=== PATIENT | female | born 1955 | race Caucasian/White ===

== ENCOUNTER 2020-08-21 22:41 | Outpatient (REF) | payer MEDICAID, SELFPAY ==
[2020-08-22 20:05] LABS: Influenza A RNA Result Negative (Negative); Influenza B RNA Result Negative (Negative); RSV RNA Result Negative (Negative)
[2020-08-25 12:22] LABS: COVID-19 RT-PCR Result NEGATIVE (Negative)
== END 2020-08-21 23:01 ==
LOC: LBN 22:41
PROVIDERS: PCP Family Medicine; Visit Provider Student in an Organized Health Care Education/Training Program
DX: M79.18 Myalgia, other site (principal); B34.9 Viral infection, unspecified
CPT/HCPCS: 87631; U0003

== ENCOUNTER 2021-01-28 03:13 | Outpatient (CLI) | payer MEDICAID, SELFPAY ==
[2021-01-28 12:53] LABS: Bilirubin Negative (Negative); Blood Negative (Negative); Clarity Sl Cloudy (Clear); Glucose Negative (Negative); Ketones Negative (Negative); Leukocyte Esterase Small (Negative); Nitrite Negative (Negative); Urobilinogen 0.2 EU/dL (Up TO 0.2); pH 6.5 (5-8)
[2021-01-28 13:00] LABS: Bacteria Few HPF (Negative); Crystals Negative HPF (Negative); Epithelial Cells Few HPF (Negative); Mucus Moderate (Negative); RBC 0-2 HPF (0-2)
[2021-01-28 13:01] LABS: C & S Indicated? Yes; Casts 3-5 Hyaline LPF (Negative)
[2021-01-28 13:21] LABS: Hemoglobin A1C 5.5 % (<5.7)
[2021-01-28 13:28] LABS: ALT 20 U/L (14-59); AST 11 U/L (15-37); Albumin 4.5 g/dL (3.4-5.0); Alkaline Phosphatase 85 U/L (46-116); BUN 10 mg/dL (7-18); Bilirubin, Total 0.5 mg/dL (0.2-1.0); CREATININE 1.3 mg/dL (0.55-1.02); Calcium 9.3 mg/dL (8.5-10.1); Calculated LDL 192 mg/dL (<100); Chloride 101 mmol/L (98-107); Cholesterol 280 mg/dL (<200); Estimated GFR 41.24 (mL/min/1.73m2); Glucose 111 mg/dL (74-106); HDL Cholesterol 38 mg/dL (40-60); Magnesium 1.9 mg/dL (1.8-2.4); Potassium 4.4 mmol/L (3.5-5.1); Sodium 141 mmol/L (136-145); Triglyceride 254 mg/dL (<150)
== END 2021-01-28 03:14 | disposition home or self-care (01) ==
LOC: LOS 03:14
PROVIDERS: Nurse Practitioner Psychiatric/Mental Health; PCP Family Medicine; Visit Provider Family Medicine
DX: E78.5 Hyperlipidemia, unspecified (principal); E83.42 Hypomagnesemia; N20.0 Calculus of kidney; R82.998 Other abnormal findings in urine; Z13.1 Encounter for screening for diabetes mellitus
CPT/HCPCS: 36415; 80053; 80061; 81003; 81015; 83036; 83735; 87086

== ENCOUNTER 2021-04-28 04:58 | Outpatient (CLI) | payer MEDICAID, SELFPAY ==
[2021-04-28 14:32] LABS: ALT 20 U/L (14-59); AST 15 U/L (15-37); Albumin 4.3 g/dL (3.4-5.0); Alkaline Phosphatase 66 U/L (46-116); Anion Gap 11.7 mmol/L (3-11); BUN 9 mg/dL (7-18); Bilirubin, Total 0.2 mg/dL (0.2-1.0); CO2 25.3 mmol/L (21.0-32.0); CREATININE 1.1 mg/dL (0.55-1.02); Calculated LDL 115 mg/dL (<100); Chloride 102 mmol/L (98-107); Cholesterol 217 mg/dL (<200); Estimated GFR 50.01 (mL/min/1.73m2); Glucose 100 mg/dL (74-106); HDL Cholesterol 44 mg/dL (40-60); Potassium 3.9 mmol/L (3.5-5.1); Sodium 139 mmol/L (136-145); Total Protein 7.8 g/dL (6.4-8.2); Triglyceride 292 mg/dL (<150)
[2021-04-28 15:06] LABS: Hemoglobin A1C 5.9 % (<5.7)
== END 2021-04-28 04:59 | disposition home or self-care (01) ==
LOC: LBO 04:58
PROVIDERS: Psychiatry & Neurology Psychiatry; PCP Family Medicine; Visit Provider Family Medicine
DX: F31.81 Bipolar II disorder (principal); Z79.899 Other long term (current) drug therapy
CPT/HCPCS: 36415; 80053; 80061; 83036

== ENCOUNTER 2021-06-17 03:07 | Outpatient (CLI) | payer OTHER, SELFPAY ==
--- NOTE | 2021-06-17 | DI.RAD_ITS ---
Exam(s) XR LUMBAR SPINE AP, LAT EXAM: XR LUMBAR SPINE AP, LAT CLINICAL HISTORY: DISABILITY DETERMINATION, BACK PAIN. TECHNIQUE: 2D digital imaging was performed. COMPARISON: No exams were available for comparison FINDINGS: There is no evidence compression fracture. Mild scoliosis convex right. There is some mild disc spa ce narrowing at L4-5 level and 7 millimeters anterolisthesis L4 upon L5 due to facet joint arthropath y. Mild narrowing of the other disc spaces also evident. Mild facet arthropathy. Sacroiliac joints appear unremarkable. IMPRESSION: Degenerative disc disease. Degenerative anterolisthesis of L4 upon L5. DATA REPOSITORY: RADIATION DOSE DELIVERED:
== END 2021-06-17 03:27 ==
PROVIDERS: PCP Family Medicine; Visit Provider Pediatrics Pediatric Rheumatology
DX: Z02.71 Encounter for disability determination (principal); M54.9 Dorsalgia, unspecified; F31.9 Bipolar disorder, unspecified; M51.36 Other intervertebral disc degeneration, lumbar region; M43.16 Spondylolisthesis, lumbar region
CPT/HCPCS: 72100

== ENCOUNTER 2022-02-10 11:41 | Inpatient (IN) | payer MEDICARE, MEDICAID, SELFPAY ==
[2022-02-10 11:45] VITALS: BP 157/84; PULSE 93; RESP 16; TEMP 37.2; O2SAT 96
--- NOTE | 2022-02-10 12:32 | ED.GENADUL_ITS ---
Discharge Plan Disposition Patient Disposition: [facility] INPATIENT Condition: Stable Discharge Details Clinical Impression: Diverticulitis large intestine Primary Care Provider: Cathie Strange ED Provider: Medina Wang Home Meds and New Rx's Prescriptions: No Action Latuda 120 mg tablet 120 mg PO DAILY Label Comments: pt reports taking 160 mg daily. -hb trazodone 50 mg tablet 50 mg PO HS Label Comments: pt reports taking 200 mg HS. -hb Vitamin D3 (calcium cit-phos) 1 EACH tablet 1 ea PO DAILY Slow-Mag 71.5 MG tablet,delayed release (DR/EC) 2 tab PO DAILY Qty: 60 sertraline [Zoloft] 100 MG tablet 200 mg PO DAILY bupropion HCl [Wellbutrin XL] 150 MG tablet extended release 24 hr 150 mg PO DAILY Qty: 30 Rx Instructions: Elis Barnes NP lansoprazole 30 mg capsule,delayed release(DR/EC) 30 mg PO DAILY Qty: 90 3RF cetirizine 10 mg tablet 10 mg PO DAILY Qty: 90 3RF atorvastatin 20 mg tablet 20 mg PO DAILY Qty: 90 3RF Rx Instructions: take one tablet daily okwthaywxo-xgchjjrbsafah-awsk 50-300-40 mg capsule 1 cap PO DAILY PRN (Reason: headache) Qty: 4 0RF lorazepam 1 MG tablet 1 tab PO TID Label Comments: Now TID 04/21/16 [employer] haloperidol 2 MG tablet 2 mg PO HS Excedrin Tension Headache 1 EACH tablet 1 - 2 tab PO PRN PRN lamotrigine [Lamictal] 100 mg tablet 150 mg PO DAILY Label Comments: 11/11/17 takes 150 mg daily. hb prazosin 1 mg capsule 1 mg PO BID Medical Decision Making 67 year-old female presents to the ER with chief complaints of suprapubic abdominal pain which radiates into her vaginal area which has been worsening for the last 2 weeks. She reports abdominal pain for the last 2 months around her bellybutton and right upper quadrant. She also reports diarrhea loose stools for the last couple of weeks. Nausea no vomiting denies any fever chills. She denies any dysuria. She denies any blood or mucus in her stools. She also endorses bloating and fullness in her abdomen. She did take 4 Excedrin this morning at 9 AM. Past medical history include Cramer's esophagus, neoplasm of kidney, bipolar 1, diabetes mellitus, hypertension, bulimia, hypothyroidism, glaucoma surgical history includes hysterectomy, cholecystectomy per patient report. Work-up ordered including CBC, CMP, urinalysis, lipase CT abdomen pelvis without contrast. This patient was evaluated during a time of global shortage of iodinated contrast media. Based on guidance from the [employer], best practices, and local institutional approaches as an alternative path for evaluating and managing the patient may have been implemented in order to provide optimal care during shortage. The current situation has been discussed with the patient. CBC shows white blood cell count 11.23, absolute neutrophils 8.18 BUN 6 creatinine 1.0 GFR 55, glucose 118 urinalysis shows moderate leukocytes 3-5 RBCs 20-50 WBCs. Culture is not indicated at this time due to squamous contamination. 1335: Spoke with Dr. Hale radiologist regarding CT result. He reports acute diverticulitis. Significant risk for developing an abscess please see his official report. Flagyl 500 mg PO ordered, I did consider Augmentin however patient is allergic to penicillin, Cipro (dizziness), sulfa, codeine and latex. 1338: Surgery paged for consult to discuss case. 1432: Spoke with Dr. Rivera regarding patient case in detail she was able to personally view the CT. She does recommend admission to minimize the risk of abscess. I did discuss this with the patient who verbalizes understanding and is in agreement with admission. This text was generated using [employer] dictation system, please disregard any oddities of phrase or misspellings. 1520: Per RN report, patient does not want morphine is requesting hydrocodone which was ordered at this time. HPI General Mode of arrival: ambulatory . Date/Time Provider Initiated Documentation: 02/10/22 12:10 . Limitations to Documentation: no limitations . Information obtained by: patient, RN notes reviewed and old records reviewed . HPI Narrative: 67-year-old female presents to the ER with chief complaints of suprapubic abdominal pain which radiates into her vaginal area which has been worsening for the last 2 weeks. She reports abdominal pain for the last 2 months around her bellybutton and right upper quadrant. She also reports diarrhea loose stools for the last couple of weeks. Nausea no vomiting denies any fever chills. She denies any dysuria. She denies any blood or mucus in her stools. She also endorses bloating and fullness in her abdomen. She did take 4 Excedrin this morning at 9 AM. Past medical history include Cramer's esophagus, neoplasm of kidney, bipolar 1, diabetes mellitus, hypertension, bulimia, hypothyroidism, glaucoma surgical history includes hysterectomy, cholecystectomy per patient report. Related Data Home Medications Medication Instructions Recorded Confirmed calcium cmb no.1-vit Y4-D2-LD-B12 1 ea PO DAILY 01/22/13 05/02/21 120 mg-1,000 unit-10 mg tablet (Vitamin D3 (with calcium cit-phos)) lorazepam 1 mg tablet 1 tab PO TID 04/06/14 02/10/22 magnesium chloride 71.5 mg 2 tab PO DAILY #60 tab-caps 04/11/14 02/10/22 (magnesium chloride) tablet,delayed release (Slow-Mag) sertraline 100 mg tablet (Zoloft) 200 mg PO DAILY 09/03/14 02/10/22 acetaminophen-caffeine 500 mg-65 1 - 2 tab PO PRN PRN 04/29/15 05/02/21 mg tablet (Excedrin Tension Headache) haloperidol 2 mg tablet 2 mg PO HS 04/29/15 05/02/21 bupropion HCl 150 mg 24 hr tablet, 150 mg PO DAILY #30 tab-caps 04/21/16 02/10/22 extended release (Wellbutrin XL) lamotrigine 100 mg tablet 150 mg PO DAILY 06/18/19 02/10/22 (Lamictal) prazosin 1 mg capsule 1 mg PO BID 06/18/19 02/10/22 lurasidone 120 mg tablet (Latuda) 120 mg PO DAILY 04/30/21 05/02/21 trazodone 50 mg tablet 50 mg PO HS 04/30/21 02/10/22 lansoprazole 30 mg capsule,delayed 30 mg PO DAILY Cramer's 12/11/21 02/10/22 release oesophagus/GERD #90 caps cetirizine 10 mg tablet 10 mg PO DAILY #90 tabs 01/01/22 atorvastatin 20 mg tablet 20 mg PO DAILY #90 tabs 01/06/22 02/10/22 xonggoavju-cjnkinihvjswe-obwpdqxh 1 cap PO DAILY PRN headache #4 caps 02/05/22 50 mg-300 mg-40 mg capsule Previous Rx's Medication Instructions Recorded lansoprazole 30 mg capsule,delayed 30 mg PO DAILY Cramer's 12/11/21 release oesophagus/GERD #90 caps cetirizine 10 mg tablet 10 mg PO DAILY #90 tabs 01/01/22 atorvastatin 20 mg tablet 20 mg PO DAILY #90 tabs 01/06/22 dhxsuieyja-uzhrihzvicoxu-bosdlddr 1 cap PO DAILY PRN headache #4 caps 02/05/22 50 mg-300 mg-40 mg capsule Allergies Allergy/AdvReac Type Severity Reaction Status Date / Time Penicillins Allergy Swelling/Ed Verified 02/10/22 11:50 dilia latex AdvReac Severe Skin Rash Verified 02/10/22 11:50 azithromycin [From Zithromax] AdvReac headache, Verified 02/10/22 11:50 hearing loss,double vision, DAVILA ciprofloxacin [From Cipro] AdvReac Dizziness/L Verified 02/10/22 11:50 ightheade codeine AdvReac GI upset Verified 02/10/22 11:50 Sulfa (Sulfonamide AdvReac anxious Verified 02/10/22 11:50 Antibiotics) General Stated Complaint: Abd Prob MARIAM: 3 Review of Systems All systems reviewed & are unremarkable except as noted in HPI and below Cardiovascular Cardiovascular: Denies chest pain and Denies dyspnea Respiratory Respiratory: Denies dyspnea Gastrointestinal Gastrointestinal: Reports as per HPI, Reports abdominal pain, Reports bloating, Denies hematochezia, Reports diarrhea, Denies vomiting and Denies hematemesis Genitourinary Genitourinary: Denies dysuria PFSH All Active Problems (Updated 02/10/22 @ 14:17 by Medina Wang) Diverticulitis large intestine (Acute) Tooth ache (Acute) Viral syndrome (Acute) Allergic rhinitis (Acute 05/05/15) Bipolar I disorder (Acute) Essential hypertension (Acute 06/28/13) no rx (2014) Gastroesophageal reflux disease with esophagitis (Acute) gastroscopy February 2013: oesophagitis () no response to Ranitidine, Pantoprazole/ on Nexium x age 31 Hyperlipidemia (Acute 03/27/13) Kidney stone (Acute) lithotripsy 2009 (right) Medical History (Updated 02/10/22 @ 14:17 by Medina Wang) Cramre's esophagus Benign neoplasm of kidney Bipolar I disorder Diabetes mellitus Essential hypertension Glaucoma Hyperlipidemia Hypothyroidism Postmenopausal bleeding uterine fibroids Surgical History (Updated 06/21/18 @ 14:35 by kalidea NM) Ligation of fallopian tube Vaginal hysterectomy (07/03/15) UTEROSACRAL SUSPENSION; CYSTOSCOPY, RECTOCELE REPAIR Family History Mother Essential hypertension Personal history of malignant neoplasm LUNG Stroke Father Essential hypertension Heart disease Hyperlipidemia Sister No problems noted. Sister No problems noted. Brother Heart disease DOUBLE BYPASS AGE 48 (NON SMOKER) Hyperlipidemia Grandfather Personal history of malignant neoplasm LUNG Grandfather No problems noted. Grandmother Heart disease Myocardial infarction Grandmother Diabetes Son No problems noted. Son Depression Daughter Depression Social History Smoking/Tobacco Use Status: Former Tobacco Use Smoking risk assessment performed?: Yes Alcohol Intake: never Drug use: Never Substance use type: does not use Do you feel safe at home: Yes Do you feel safe in your relationship?: Yes Exam Narrative Exam Narrative: Constitutional: Alert and oriented x3. Appears stated age. Normal body habitus. Head: Normocephalic, no trauma. Eyes: Pupils PERRL, Red reflex noted, EOM's intact. Eyelids symmetrical without lesions, discharge, or swelling. Chest: RRR, Normal S1, S2, distal pulses intact. Resp: Lungs clear to auscultation bilaterally, no wheezes, rales, or rhonchi. Abdomen: Soft, does appear somewhat bloated, tenderness to the right lower quadrant left lower quadrant suprapubic area. Musculoskeletal: Normal gait, 5/5 strength to all four extremities. Skin: No suspicious rashes or lesions. Capillary refill less than 2 sec. Neurologic: Cranial nerves II-XII intact. Alert and oriented x 3. Motor: No deficits noted. Sensory: Intact bilaterally all 4 extremities. Hematologic/Lymphatic: No ecchymosis, no lymphadenopathy. Course Vital Signs Vital signs: Vital Signs Temperature 37.2 C 02/10/22 11:45 Pulse 93 H 02/10/22 11:45 Respiratory Rate 16 02/10/22 11:45 Blood Pressure 157/84 H 02/10/22 11:45 Pulse Oximetry 96 02/10/22 11:45 Temperature 37.2 C 02/10/22 11:45 Pulse 93 H 02/10/22 11:45 Respiratory Rate 16 02/10/22 11:45 Respiratory Effort 02/10/22 11:54 Blood Pressure 157/84 H 02/10/22 11:45 Pulse Oximetry 96 02/10/22 11:45 Pain Level 4 02/10/22 11:45
[2022-02-10 12:50] LABS: Abs Immature Grans 0.07 10^3/uL (0.0-0.06); Absolute Basophil Count 0.08 10^3/uL (0.0-0.2); Absolute Eosinophil Count 0.29 10^3/uL (0.0-0.7); Absolute Lymphocyte Count 1.94 10^3/uL (1.2-3.4); Absolute Monocyte Count 0.67 10^3/uL (0.1-0.8); Absolute Neutrophil Count 8.18 10^3/uL (1.2-6.7); Basophils % 0.7; Eosinophils % 2.6; HCT 43.8 % (36.0-46.0); HGB 14.7 g/dL (11.2-15.7); Immature Grans % 0.6; Lymphocytes % 17.3; MCH 32.3 pg (27.0-33.0); MCHC 33.6 % (32.0-36.0); MCV 96 fL (80-95); MPV 9.4 fL (8.0-11.0); Neutrophils % 72.8; Platelet Count 208 10^3/uL (130-400); RBC 4.55 10^6/uL (3.93-5.22); RDW-SD 46.2 fL; WBC 11.23 10^3/uL (4.4-10.8)
--- NOTE | 2022-02-10 12:54 | DI.CT_ITS ---
Exam(s) CT ABDOMEN PELVIS WO EXAM: CT ABDOMEN PELVIS WO CLINICAL HISTORY: Suprapubic abd pain, RUQ pain, bloating. TECHNIQUE: Imaging Protocol: Axial computed tomography images with coronal and sagittal reformatted images were created and reviewed CONTRAST MATERIAL: Intravenous: none Oral: None COMPARISON: CT UPPER ABD W/WO CONTRAST(P) from 05/04/2012 FINDINGS: VISUALIZED LUNG BASES: There are mild increased markings in the right lung base but no confluent infi ltrate and there are no pleural effusions.. ABDOMEN: There is no ascites. LIVER: There are no obvious focal hepatic lesions evident of this noninfused study. GALLBLADDER/BILIARY: Gallbladder surgically absent. CBD is not dilated. Scratch PANCREAS: No evidence of pancreatic mass nor dilatation of the pancreatic duct. SPLEEN: Spleen is not enlarged. No obvious intrasplenic lesions. ADRENALS: There are no significant adrenal masses. KIDNEYS:No cysts evident. There is a relatively stable containing lesion in the lateral cortex of the left kidney which measures 2 x 2 cm, consistent with an angiomyolipoma. This is only minimally incr eased in size when compared to 2012. No new solid renal masses. No calculi. No hydronephrosis.. ABDOMINAL AORTA: Abdominal aorta is not enlarged. LYMPH NODES: There is no retroperitoneal nor paraaortic adenopathy. ABDOMINAL WALL: No evidence of significant anterior abdominal wall nor inguinal hernia. GI: There is no evidence of bowel obstruction, free air, nor abscess. PELVIS: LYMPH NODES: There is no intrapelvic nor inguinal adenopathy. GI: No evidence of appendicitis.Sigmoid diverticulosis and there is evidence of acute diverticulitis. There is streaking and some phlegmonous change around the rectosigmoid. High risk for developing a bscess. URINARY BLADDER: No mass nor calculi nor gas therein. REPRODUCTIVE: Uterus is surgically absent. No ovarian masses. OSSEOUS: No significant osseous lesions. No fractures. IMPRESSION: 1. The main finding here is significant phlegmonous change around the area of the sigmoid involve wit h diverticulosis, these findings consistent with acute diverticulitis. Significant risk for developi ng an abscess here. 2. Fat containing lesion in the lateral cortex of the left kidney measuring 2 x 2 centimeters consist ent with an angiomyolipoma. This has increased only minimally in size when compared to the prior CT scan of 2011. 3. Gallbladder surgically absent. The biliary tree is not dilated. 4. Uterus surgically absent. Report called by myself to ER provider. RADIATION DOSE DELIVERED: 886.14mGy.cm Total DLP DATA REPOSITORY: All CT scans at this facility are submitted to the National Radiology Data Registry (NRDR) Dose Index Registry (DIR) with the [employer] (ACR). RADIATION OPTIMIZATION: All CT scans at this facility use at least one of these dose optimization te chniques: automated exposure control; mA and/or kV adjustment per patient size (includes targeted exa ms where dose is matched to clinical indication); or iterative reconstruction.
[2022-02-10 13:10] LABS: ALT 17 U/L (14-59); AST 8 U/L (15-37); Albumin 3.9 g/dL (3.4-5.0); Alkaline Phosphatase 62 U/L (46-116); Anion Gap 10.7 mmol/L (3-11); BUN 6 mg/dL (7-18); Bilirubin, Total 0.3 mg/dL (0.2-1.0); CO2 25.3 mmol/L (21.0-32.0); Calcium 9.3 mg/dL (8.5-10.1); Chloride 103 mmol/L (98-107); Estimated GFR 55.64 (mL/min/1.73m2); Glucose 118 mg/dL (74-106); Lipase 63 U/L (73-393); Magnesium 1.9 mg/dL (1.8-2.4); Potassium 4.3 mmol/L (3.5-5.1); Sodium 139 mmol/L (136-145); Total Protein 8.2 g/dL (6.4-8.2)
[2022-02-10 13:16] LABS: Bilirubin Negative (Negative); Blood Negative (Negative); Clarity Sl Cloudy (Clear); Glucose Negative (Negative); Ketones Negative (Negative); Leukocyte Esterase Moderate (Negative); Nitrite Negative (Negative); Specific Gravity 1.015 (1.005-1.025); Urobilinogen 0.2 EU/dL (Up TO 0.2)
[2022-02-10 13:27] LABS: Bacteria Moderate HPF (Negative); C & S Indicated? No/Sq. Contamination; Casts Negative LPF (Negative); Crystals Negative HPF (Negative); Epithelial Cells Many HPF (Negative); Mucus Moderate (Negative); WBC 20-50 HPF (0-5)
[2022-02-10] MEDS: metroNIDAZOLE 500 MG TAB PO (14:14)
[2022-02-10 14:40] LABS: Source Nasal/Nares
[2022-02-10] MEDS: HYDROcodone 5/Acetaminophen 325 TAB PO (15:06)
[2022-02-10] MEDS: Normal Saline Flush 10 ML SYR IVP ×3 (15:24→19:20)
[2022-02-10] MEDS: CIPROFLOXACIN 200 MG/100 ML BAG 100 MG IVPB ×2 (15:24→23:51)
[2022-02-10] MEDS: Ketorolac 15 MG/ML VIAL IVP ×2 (16:13→22:12)
[2022-02-10 16:16] VITALS: BP 145/87; PULSE 79; RESP 14; TEMP 36.8; O2SAT 93
--- NOTE | 2022-02-10 17:59 | HPE_ITS ---
Assessment and Plan Assessment and plan (1) Diverticulitis large intestine: Status: Acute Assessment and plan: Ms Jenkins is a 67 year old female see in the ED today for abdominal pain. She was diagnosed with Diverticulitis with a phlegmon. No abscess noted. Patient is at high risk for abscess. Patient admitted for bowel rest and IV antibiotics. Discussed treatment plan. Discussed possibility of abscess formation down the road despite antibiotics at which point she would need a drainage procedure or possible surgery. Plan: Admit Clear liquid diet IV Antibiotics continue home meds (2) Bipolar I disorder: Status: Acute (3) Essential hypertension: Status: Acute (4) Gastroesophageal reflux disease with esophagitis: Status: Acute (5) Hyperlipidemia: Status: Acute History of Present Illness History of Present Illness Chief Complaint: abdominal pain Consults Consult date: 02/10/22 Requesting physician: Medina Wang Narrative: Ms Jenkins is a 67-year-old female who presented to the ER with chief complaints of suprapubic abdominal pain which radiates into her vaginal area which has been worsening for the last 2 weeks.? She reports abdominal pain for the last 2 months around her bellybutton and right upper quadrant.? She also reports d iarrhea, loose stools for the last couple of weeks.? Nausea but no vomiting, denies any fever chills.? She denies any dysuria.? She denies any blood or mucus in her stools. She also endorses bloating and fullness in her abdomen.? She did take 4 Excedrin this morning at 9 AM. Past medical history include Cramer's esophagus, neoplasm of kidney, bipolar 1, diabetes mellitus, hypertension, bulimia, hypothyroidism, glaucoma surgical history includes hysterectomy, cholecystectomy Work-up in the ER revealed diverticulosis with a phlegmon. This places the patient at higher risk for developing an abscess. CT scan reviewed IMPRESSION: 1. The main finding here is significant phlegmonous change around the area of the sigmoid involve with diverticulosis, these findings consistent with acute diverticulitis.? Significant risk for developing an abscess here. 2. Fat containing lesion in the lateral cortex of the left kidney measuring 2 x 2 centimeters consistent with an angiomyolipoma.? This has increased only minimally in size when compared to the prior CT scan of 2012. 3. Gallbladder surgically absent.? The biliary tree is not dilated. 4.? Uterus surgically absent. Review of Systems Constitutional Constitutional: Denies anorexia, Denies fever(s), Denies headache(s), Denies weakness and Denies weight loss Eyes Eyes: Denies change in vision ENT Ears, Nose, Mouth, and Throat: Denies headache(s) Cardiovascular Cardiovascular: Denies chest pain, Denies chest pain at rest, Denies irregular heart rhythm, Denies palpitations, Denies dyspnea and Denies dyspnea on exertion Respiratory Respiratory: Denies cough, Denies dyspnea and Denies dyspnea on exertion Gastrointestinal Gastrointestinal: Reports as per HPI, Denies dyspepsia and Denies heartburn Genitourinary Genitourinary: Reports system reviewed and no additional complaints, except as documented Musculoskeletal Musculoskeletal: Reports system reviewed and no additional complaints, except as documented Integumentary/Breasts Skin/Breast: Reports system reviewed and no additional complaints, except as documented Neurologic Neurologic: Reports system reviewed and no additional complaints, except as documented, Denies headache(s) and Denies weakness Psychiatric Psychiatric: Reports system reviewed and no additional complaints, except as documented Endocrine Endocrine: Reports system reviewed and no additional complaints, except as documented and Denies palpitations PFSH All Active Problems Diverticulitis large intestine (Acute) Tooth ache (Acute) Viral syndrome (Acute) Allergic rhinitis (Acute 05/05/15) Bipolar I disorder (Acute) Essential hypertension (Acute 06/28/13) no rx (2014) Gastroesophageal reflux disease with esophagitis (Acute) gastroscopy February 2013: oesophagitis () no response to Ranitidine, Pantoprazole/ on Nexium x age 31 Hyperlipidemia (Acute 03/27/13) Kidney stone (Acute) lithotripsy 2009 (right) Medical History Cramer's esophagus Benign neoplasm of kidney Bipolar I disorder Diabetes mellitus Essential hypertension Glaucoma Hyperlipidemia Hypothyroidism Postmenopausal bleeding uterine fibroids Surgical History Ligation of fallopian tube Vaginal hysterectomy (07/03/15) UTEROSACRAL SUSPENSION; CYSTOSCOPY, RECTOCELE REPAIR Family History Mother Essential hypertension Personal history of malignant neoplasm LUNG Stroke Father Essential hypertension Heart disease Hyperlipidemia Sister No problems noted. Sister No problems noted. Brother Heart disease DOUBLE BYPASS AGE 48 (NON SMOKER) Hyperlipidemia Grandfather Personal history of malignant neoplasm LUNG Grandfather No problems noted. Grandmother Heart disease Myocardial infarction Grandmother Diabetes Son No problems noted. Son Depression Daughter Depression Social History Smoking/Tobacco Use Status: Former Tobacco Use Smoking risk assessment performed?: Yes Alcohol Intake: never Drug use: Never Substance use type: does not use Do you feel safe at home: Yes Do you feel safe in your relationship?: Yes Meds Allergies and Home Medications Allergies Allergy/AdvReac Type Severity Reaction Status Date / Time Penicillins Allergy Swelling/Ed Verified 02/10/22 11:50 dilia latex AdvReac Severe Skin Rash Verified 02/10/22 11:50 azithromycin [From Zithromax] AdvReac headache, Verified 02/10/22 11:50 hearing loss,double vision, DAVILA ciprofloxacin [From Cipro] AdvReac Dizziness/L Verified 02/10/22 11:50 ightheade codeine AdvReac GI upset Verified 02/10/22 11:50 Sulfa (Sulfonamide AdvReac anxious Verified 02/10/22 11:50 Antibiotics) Home Medications Medication Instructions Recorded Confirmed Type lorazepam 1 mg tablet 1 tab PO BID 04/06/14 02/10/22 History magnesium chloride 71.5 mg 2 tab PO DAILY #60 tab-caps 04/11/14 02/10/22 History (magnesium chloride) tablet,delayed release (Slow-Mag) haloperidol 2 mg tablet 2 mg PO HS 04/29/15 02/10/22 History lansoprazole 30 mg capsule,delayed 30 mg PO DAILY Cramer's 12/11/21 02/10/22 Rx release oesophagus/GERD #90 caps cetirizine 10 mg tablet 10 mg PO DAILY #90 tabs 01/01/22 02/10/22 Rx atorvastatin 20 mg tablet 20 mg PO DAILY #90 tabs 01/06/22 02/10/22 Rx gwzbomuskx-isoszvsayqptw-otvqlehi 1 cap PO DAILY PRN headache #4 caps 02/05/22 02/10/22 Rx 50 mg-300 mg-40 mg capsule bupropion HCl 300 mg 24 hr tablet, 300 mg PO DAILY 02/10/22 02/10/22 History extended release lamotrigine 200 mg tablet 200 mg PO DAILY 02/10/22 02/10/22 History lurasidone 120 mg tablet (Latuda) 120 mg PO DAILY 02/10/22 02/10/22 History lurasidone 20 mg tablet (Latuda) 40 mg PO DAILY 02/10/22 02/10/22 History multivitamin-ferrous 1 tab PO DAILY 02/10/22 02/10/22 History fumarate-folic acid 18 mg-400 mcg tablet prazosin 2 mg capsule 2 mg PO QPM 02/10/22 02/10/22 History sertraline 100 mg tablet 100 mg PO DAILY 02/10/22 02/10/22 History trazodone 100 mg tablet 200 mg PO HS 02/10/22 02/10/22 History Exam Const General: comfortable and no acute distress Orientation: alert and oriented x3 HENMT Head: normocephalic and atraumatic Eyes Pupils: PERRL Resp Effort & Inspection: normal respiratory effort Auscultation: clear to auscultation bilaterally Cardio Rate: regular rate Rhythm: regular rhythm Heart Sounds: no gallops, no murmurs and no rubs GI Inspection: normal to inspection Palpation: soft, no hepatosplenomegaly and tender (suprapubic and LLQ) Results Labs Result diagrams: 02/10/22 12:43 02/10/22 12:43 Labs: Laboratory Results - last 24 hr 02/10/22 02/10/22 02/10/22 12:43 12:43 12:43 WBC 11.23 H RBC 4.55 Hgb 14.7 Hct 43.8 MCV 96 H MCH 32.3 MCHC 33.6 RDW 13.0 Plt Count 208 MPV 9.4 Immature Gran % 0.6 Neutrophils % 72.8 Lymphocytes % 17.3 Monocytes % 6.0 Eosinophils % 2.6 Basophils % 0.7 Nucleated RBC % 0.0 Absolute Neutrophils 8.18 H Absolute Lymphocytes 1.94 Absolute Monocytes 0.67 Absolute Eosinophils 0.29 Absolute Basophils 0.08 Sodium 139 Cancelled Potassium 4.3 Cancelled Chloride 103 Cancelled Carbon Dioxide 25.3 Cancelled Anion Gap 10.7 Cancelled BUN 6 L Cancelled Creatinine 1.0 Cancelled Estimated GFR/1.73 m2 55.64 Cancelled Glucose 118 H Cancelled Calcium 9.3 Cancelled Magnesium 1.9 Total Bilirubin 0.3 Cancelled AST 8 L Cancelled ALT 17 Cancelled Alkaline Phosphatase 62 Cancelled Total Protein 8.2 Cancelled Albumin 3.9 Cancelled Lipase 63 Urine Color Urine Clarity Urine pH Ur Specific [place] Urine Protein Urine Ketones Urine Blood Urine Nitrite Urine Bilirubin Urine Urobilinogen Ur Leukocyte Esterase Urine RBC Urine WBC Ur Epithelial Cells Urine Crystals Urine Bacteria Urine Casts Urine Mucus Ur Culture Indicated? Urine Glucose COVID-19 Source 02/10/22 02/10/22 13:05 14:34 WBC RBC Hgb Hct MCV MCH MCHC RDW Plt Count MPV Immature Gran % Neutrophils % Lymphocytes % Monocytes % Eosinophils % Basophils % Nucleated RBC % Absolute Neutrophils Absolute Lymphocytes Absolute Monocytes Absolute Eosinophils Absolute Basophils Sodium Potassium Chloride Carbon Dioxide Anion Gap BUN Creatinine Estimated GFR/1.73 m2 Glucose Calcium Magnesium Total Bilirubin AST ALT Alkaline Phosphatase Total Protein Albumin Lipase Urine Color Yellow Urine Clarity Sl Cloudy Urine pH 6.0 Ur Specific [place] 1.015 Urine Protein Negative Urine Ketones Negative Urine Blood Negative Urine Nitrite Negative Urine Bilirubin Negative Urine Urobilinogen 0.2 Ur Leukocyte Esterase Moderate H Urine RBC 3-5 H Urine WBC 20-50 H Ur Epithelial Cells Many Urine Crystals Negative Urine Bacteria Moderate Urine Casts Negative Urine Mucus Moderate Ur Culture Indicated? No/Sq. Contamination Urine Glucose Negative COVID-19 Source Nasal/Nares Last Vital Signs Temp 98.2 F 02/10/22 16:16 Pulse 79 02/10/22 16:16 Resp 14 02/10/22 16:16 BP 145/87 H 02/10/22 16:16 Pulse Ox 93 02/10/22 16:16
[2022-02-10 18:29] VITALS: PULSE 77
[2022-02-10] MEDS: Lactated Ringers 1,000 ML 75 ML IV (19:17)
[2022-02-10 19:20] VITALS: BP 124/83; PULSE 65; RESP 14; TEMP 37; O2SAT 92
[2022-02-10] MEDS: LORazepam 1 MG TAB PO (19:42)
[2022-02-10] MEDS: Docusate Sodium 100 MG CAP PO (19:42)
[2022-02-10] MEDS: Mylanta Suspension 30 ML CUP PO (22:02)
[2022-02-10] MEDS: traZODone 100 MG TAB 200 MG PO (22:03)
[2022-02-10] MEDS: Prazosin 1 MG CAP 2 MG PO (22:03)
[2022-02-10] MEDS: Acetaminophen 325 MG TAB 650 MG PO (22:03)
[2022-02-10 22:29] LABS: COVID-19 PCR Negative (Negative)
[2022-02-10 23:50] VITALS: PULSE 75
[2022-02-10] MEDS: Lurasidone 40 MG TAB 160 MG PO (23:50)
[2022-02-10] MEDS: lamoTRIgine 100 MG TAB 200 MG PO (23:50)
[2022-02-10] MEDS: metroNIDAZOLE 500 MG/100 ML BAG 100 MG IVPB (23:51)
[2022-02-11] VITALS (7 sets, daily range): BP systolic 118–155; BP diastolic 77–84; PULSE 65–95; RESP 14–18; TEMP 36.2–37.3; O2SAT 91–95
[2022-02-11] MEDS: Haloperidol 1 MG TAB PO (00:02)
[2022-02-11] MEDS: Ketorolac 15 MG/ML VIAL IVP ×4 (03:29→21:57)
[2022-02-11] MEDS: metroNIDAZOLE 500 MG/100 ML BAG 100 MG IVPB ×3 (05:26→23:03)
[2022-02-11 06:28] LABS: Abs Immature Grans 0.03 10^3/uL (0.0-0.06); Absolute Basophil Count 0.04 10^3/uL (0.0-0.2); Absolute Eosinophil Count 0.37 10^3/uL (0.0-0.7); Absolute Lymphocyte Count 1.35 10^3/uL (1.2-3.4); Absolute Monocyte Count 0.65 10^3/uL (0.1-0.8); Absolute Neutrophil Count 6.25 10^3/uL (1.2-6.7); Basophils % 0.5; Eosinophils % 4.3; HCT 40.6 % (36.0-46.0); HGB 13.8 g/dL (11.2-15.7); Immature Grans % 0.3; Lymphocytes % 15.5; MCH 32.6 pg (27.0-33.0); MCV 96 fL (80-95); MPV 9.3 fL (8.0-11.0); Monocytes % 7.5; Neutrophils % 71.9; Platelet Count 197 10^3/uL (130-400); RBC 4.23 10^6/uL (3.93-5.22); RDW 12.8 % (11.7-14.6); RDW-SD 45.4 fL; WBC 8.69 10^3/uL (4.4-10.8)
[2022-02-11] MEDS: CIPROFLOXACIN 200 MG/100 ML BAG 100 MG IVPB ×3 (06:33→22:00)
[2022-02-11] MEDS: Mylanta Suspension 30 ML CUP PO ×3 (06:36→19:07)
--- NOTE | 2022-02-11 07:29 | PGE_ITS ---
Date of Service Date of service: 02/11/22 Time of Service: 07:29 Assessment and Plan Assessment and plan (1) Diverticulitis large intestine: Status: Acute Assessment and plan: Patient is tolerating the clear liquid diet. Abdominal pain is being well controlled although reportedly unchanged since admission. Continue with clear liquid diet with ensure supplementation. IV Antibiotics, tolerating Cipro/Flagyl, will adjust tomorrow if pain remains unchanged AM labs reviewed, leukocytosis resolved Encouraged activity OOB, sitting in the chair and ambulation. (2) Bipolar I disorder: Status: Acute (3) Essential hypertension: Status: Acute (4) Gastroesophageal reflux disease with esophagitis: Status: Acute (5) Hyperlipidemia: Status: Acute Subjective Subjective Interval history since last seen: Patient reports her stomach continues to feel yucky but expressed that drinking clear liquids has been going well. Continues to have loose stool, mild lower abdominal pain. Exam Const General: cooperative, healthy appearing and comfortable Orientation: alert and oriented x3 Resp Effort & Inspection: normal respiratory effort, no audible wheezes and no cough GI Inspection: normal to inspection Palpation: soft, no guarding and tender in the epigastrum and in the LLQ Objective Last Vital Signs Temp 36.2 C L 02/11/22 03:05 Pulse 73 02/11/22 03:05 Resp 14 02/11/22 03:05 BP 121/77 02/11/22 03:05 Pulse Ox 92 02/11/22 03:05 Laboratory Results - last 24 hr 02/10/22 02/10/22 02/10/22 12:43 12:43 12:43 WBC 11.23 H RBC 4.55 Hgb 14.7 Hct 43.8 MCV 96 H MCH 32.3 MCHC 33.6 RDW 13.0 Plt Count 208 MPV 9.4 Immature Gran % 0.6 Neutrophils % 72.8 Lymphocytes % 17.3 Monocytes % 6.0 Eosinophils % 2.6 Basophils % 0.7 Nucleated RBC % 0.0 Absolute Neutrophils 8.18 H Absolute Lymphocytes 1.94 Absolute Monocytes 0.67 Absolute Eosinophils 0.29 Absolute Basophils 0.08 Sodium 139 Cancelled Potassium 4.3 Cancelled Chloride 103 Cancelled Carbon Dioxide 25.3 Cancelled Anion Gap 10.7 Cancelled BUN 6 L Cancelled Creatinine 1.0 Cancelled Estimated GFR/1.73 m2 55.64 Cancelled Glucose 118 H Cancelled Calcium 9.3 Cancelled Magnesium 1.9 Total Bilirubin 0.3 Cancelled AST 8 L Cancelled ALT 17 Cancelled Alkaline Phosphatase 62 Cancelled Total Protein 8.2 Cancelled Albumin 3.9 Cancelled Lipase 63 Urine Color Urine Clarity Urine pH Ur Specific [place] Urine Protein Urine Ketones Urine Blood Urine Nitrite Urine Bilirubin Urine Urobilinogen Ur Leukocyte Esterase Urine RBC Urine WBC Ur Epithelial Cells Urine Crystals Urine Bacteria Urine Casts Urine Mucus Ur Culture Indicated? Urine Glucose COVID-19 Source SARS-CoV-2 (PCR) 02/10/22 02/10/22 02/11/22 13:05 14:34 06:14 WBC 8.69 RBC 4.23 Hgb 13.8 Hct 40.6 MCV 96 H MCH 32.6 MCHC 34.0 RDW 12.8 Plt Count 197 MPV 9.3 Immature Gran % 0.3 Neutrophils % 71.9 Lymphocytes % 15.5 Monocytes % 7.5 Eosinophils % 4.3 Basophils % 0.5 Nucleated RBC % 0.0 Absolute Neutrophils 6.25 Absolute Lymphocytes 1.35 Absolute Monocytes 0.65 Absolute Eosinophils 0.37 Absolute Basophils 0.04 Sodium Potassium Chloride Carbon Dioxide Anion Gap BUN Creatinine Estimated GFR/1.73 m2 Glucose Calcium Magnesium Total Bilirubin AST ALT Alkaline Phosphatase Total Protein Albumin Lipase Urine Color Yellow Urine Clarity Sl Cloudy Urine pH 6.0 Ur Specific [place] 1.015 Urine Protein Negative Urine Ketones Negative Urine Blood Negative Urine Nitrite Negative Urine Bilirubin Negative Urine Urobilinogen 0.2 Ur Leukocyte Esterase Moderate H Urine RBC 3-5 H Urine WBC 20-50 H Ur Epithelial Cells Many Urine Crystals Negative Urine Bacteria Moderate Urine Casts Negative Urine Mucus Moderate Ur Culture Indicated? No/Sq. Contamination Urine Glucose Negative COVID-19 Source Nasal/Nares SARS-CoV-2 (PCR) Negative
[2022-02-11] MEDS: Docusate Sodium 100 MG CAP PO ×2 (09:19→19:56)
[2022-02-11] MEDS: buPROPion-XL 150 MG TABCR 300 MG PO (09:19)
[2022-02-11] MEDS: Atorvastatin 20 MG TAB PO (09:19)
[2022-02-11] MEDS: LORazepam 1 MG TAB PO ×2 (09:20→19:07)
[2022-02-11] MEDS: Lansoprazole 30 MG CAPCR PO (09:20)
[2022-02-11] MEDS: Sertraline 100 MG TAB PO (09:20)
[2022-02-11] MEDS: Famotidine 20 MG TAB PO (09:20)
[2022-02-11] MEDS: Normal Saline Flush 10 ML SYR IVP ×2 (09:22→16:02)
--- NOTE | 2022-02-11 09:35 | INITIAL_ITS ---
- If Service Date Differs Date of service: 02/11/22 Time of Service: 09:35 Care Management Initial Assess REASON FOR HOSPITALIZATION:: Diverticulitis large intestine PAST MEDICAL HISTORY/PAST SURGICAL HISTORY:: All Active Problems . Diverticulitis large intestine (Acute). Tooth ache (Acute). Viral syndrome (Acute). Allergic rhinitis (Acute 05/05/15). Bipolar I disorder (Acute). Essential hypertension (Acute 06/28/13). no rx (2014). Gastroesophageal reflux disease with esophagitis (Acute). gastroscopy February 2013: oesophagitis (). no response to Ranitidine, Pantoprazole/ on Nexium x age 31. Hyperlipidemia (Acute 03/27/13). Kidney stone (Acute). lithotripsy 2009 (right). Medical History . Cramer's esophagus. Benign neoplasm of kidney. Bipolar I disorder. Diabetes mellitus. Essential hypertension. Glaucoma. Hyperlipidemia. Hypothyroidism. Postmenopausal bleeding. uterine fibroids. Surgical History . Ligation of fallopian tube. Vaginal hysterectomy (07/03/15). UTEROSACRAL SUSPENSION; CYSTOSCOPY, RECTOCELE REPAIR PREVIOUS FUNCTIONAL STATUS/SOCIAL/FAMILY SUPPORTS:: Benita lives alone in [place]. 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 She does not drive. Her neighbor Delfina is very supportive and transports her when needed. She has 3 adult children that she is not on speaking terms with. CURRENT FUNCTIONAL STATUS:: Benita was lying in bed when CM met with her. She is alert, oriented, pleasant and easy to engage in conversation. Her reported pain is a 5 out of 10 and would like to try something stronger if needed. CM reported to RN. ADVANCE DIRECTIVES:: None, pt declines forms at this time. Has patient been provided with info about the portal/API?: Yes Did the patient sign up for the portal?: No CODE STATUS:: Full Code INSURANCE COVERAGE / FINANCIAL ISSUES:: Medicaid. Medicare. State of [place] disability determination. Financial Assist 100 CURRENT HOME/COMMUNITY SERVICES/EQUIPMENT:: None PRIMARY CARE PHYSICIAN:: Cathie Adjovu POTENTIAL DISCHARGE NEEDS:: Follow up appointments PATIENT/FAMILY EDUCATION NEEDS:: Review discharge instructions, limitations, medications and plan to follow up with community providers. ask me three. TRANSPORTATION:: Via private vehicle with friend Barbara. PLAN:: Anticipate, Benita will discharge home with no new [facility] services via private vehicle with friend Delfina. She will follow up with her community providers as scheduled and discharge plan of care as prescribed. Benita's preferred pharmacy is [facility] in [place], if New RX's are needed.
[2022-02-11] MEDS: Acetaminophen 325 MG TAB 650 MG PO ×2 (10:34→19:07)
--- NOTE | 2022-02-11 11:53 | CHAPLAIN ---
Benita was sitting on the edge of her bed when I visited. She was very pleasant and easily engaged in a conversation. She asked me for some Rosary beads which I was able to give her. She said she likes to pray the prayers but it's easier with the beads. I explained my role and offered support.
[2022-02-11] MEDS: MORPHine 2 MG/ML SYR IVP (13:26)
[2022-02-11] MEDS: Prazosin 1 MG CAP 2 MG PO (21:57)
[2022-02-11] MEDS: lamoTRIgine 100 MG TAB 200 MG PO (21:57)
[2022-02-11] MEDS: Lurasidone 40 MG TAB 80 MG PO (21:57)
[2022-02-11] MEDS: traZODone 100 MG TAB 200 MG PO (21:57)
[2022-02-12] VITALS (8 sets, daily range): BP systolic 105–155; BP diastolic 68–85; PULSE 57–77; RESP 14–18; TEMP 36.5–36.8; O2SAT 91–95
[2022-02-12] MEDS: Ketorolac 15 MG/ML VIAL IVP ×4 (03:59→21:53)
[2022-02-12] MEDS: CIPROFLOXACIN 200 MG/100 ML BAG 100 MG IVPB ×2 (05:29→14:09)
[2022-02-12] MEDS: Acetaminophen 325 MG TAB 650 MG PO (06:00)
[2022-02-12] MEDS: Mylanta Suspension 30 ML CUP PO ×2 (06:01→16:20)
[2022-02-12] MEDS: metroNIDAZOLE 500 MG/100 ML BAG 100 MG IVPB (06:42)
[2022-02-12 06:51] LABS: Abs Immature Grans 0.02 10^3/uL (0.0-0.06); Absolute Basophil Count 0.05 10^3/uL (0.0-0.2); Absolute Eosinophil Count 0.52 10^3/uL (0.0-0.7); Absolute Lymphocyte Count 0.88 10^3/uL (1.2-3.4); Absolute Monocyte Count 0.57 10^3/uL (0.1-0.8); Absolute Neutrophil Count 3.47 10^3/uL (1.2-6.7); Basophils % 0.9; Eosinophils % 9.4; HCT 38.7 % (36.0-46.0); Immature Grans % 0.4; MCH 31.6 pg (27.0-33.0); MCHC 33.6 % (32.0-36.0); MCV 94 fL (80-95); MPV 9.4 fL (8.0-11.0); Monocytes % 10.3; Platelet Count 184 10^3/uL (130-400); RBC 4.11 10^6/uL (3.93-5.22); RDW 12.2 % (11.7-14.6); RDW-SD 42.5 fL; WBC 5.51 10^3/uL (4.4-10.8)
[2022-02-12 07:18] LABS: ALT 15 U/L (14-59); AST 15 U/L (15-37); Albumin 3.4 g/dL (3.4-5.0); Alkaline Phosphatase 56 U/L (46-116); BUN 4 mg/dL (7-18); Bilirubin, Total 0.5 mg/dL (0.2-1.0); Calcium 8.8 mg/dL (8.5-10.1); Chloride 100 mmol/L (98-107); Estimated GFR 55.64 (mL/min/1.73m2); Glucose 145 mg/dL (74-106); Magnesium 1.8 mg/dL (1.8-2.4); Potassium 3.9 mmol/L (3.5-5.1); Sodium 136 mmol/L (136-145)
[2022-02-12] MEDS: LORazepam 1 MG TAB PO ×2 (07:59→20:15)
[2022-02-12] MEDS: Normal Saline Flush 10 ML SYR IVP ×5 (08:00→20:16)
--- NOTE | 2022-02-12 10:00 | PGE_ITS ---
Date of Service Date of service: 02/12/22 Time of Service: 12:39 Assessment and Plan Assessment and plan (1) Diverticulitis large intestine: Status: Acute Assessment and plan: Patient is tolerating the clear liquid diet. Abdominal pain is being well controlled although reportedly unchanged since admission. Has a migraine today which she gets frequently, excedrin added. Continue with clear liquid diet with ensure supplementation. IV Antibiotics, tolerating Cipro/Flagyl, increased to Invanz due to lack of clinical improvement AM labs reviewed, leukocytosis resolved Encouraged activity OOB, sitting in the chair and ambulation. (2) Bipolar I disorder: Status: Acute (3) Essential hypertension: Status: Acute (4) Gastroesophageal reflux disease with esophagitis: Status: Acute (5) Hyperlipidemia: Status: Acute Subjective Subjective Patient reports: still having pain, tolerating liquids well, voiding w/o diffi culty, nausea and afebrile Interval history since last seen: complaining of a migraine, no change in abdominal discomfort Exam Const General: cooperative, healthy appearing and comfortable Orientation: alert and oriented x3 Resp Effort & Inspection: normal respiratory effort, no audible wheezes and no cough GI Inspection: normal to inspection Palpation: soft, no guarding and tender in the epigastrum and in the LLQ Objective Last Vital Signs Temp 98.2 F 02/12/22 07:39 Pulse 77 02/12/22 07:39 Resp 18 02/12/22 07:39 BP 141/85 H 02/12/22 07:39 Pulse Ox 91 L 02/12/22 07:39 Laboratory Results - last 24 hr 02/12/22 02/12/22 06:33 06:33 WBC 5.51 RBC 4.11 Hgb 13.0 Hct 38.7 MCV 94 MCH 31.6 MCHC 33.6 RDW 12.2 Plt Count 184 MPV 9.4 Immature Gran % 0.4 Neutrophils % 63.0 Lymphocytes % 16.0 Monocytes % 10.3 Eosinophils % 9.4 Basophils % 0.9 Nucleated RBC % 0.0 Absolute Neutrophils 3.47 Absolute Lymphocytes 0.88 L Absolute Monocytes 0.57 Absolute Eosinophils 0.52 Absolute Basophils 0.05 Sodium 136 Potassium 3.9 Chloride 100 Carbon Dioxide 25.0 Anion Gap 11.0 BUN 4 L Creatinine 1.0 Estimated GFR/1.73 m2 55.64 Glucose 145 H Calcium 8.8 Phosphorus 4.0 Magnesium 1.8 Total Bilirubin 0.5 AST 15 ALT 15 Alkaline Phosphatase 56 Total Protein 7.0 Albumin 3.4
[2022-02-12] MEDS: Docusate Sodium 100 MG CAP PO ×2 (10:12→14:17)
[2022-02-12] MEDS: Famotidine 20 MG TAB PO (10:12)
[2022-02-12] MEDS: Atorvastatin 20 MG TAB PO (10:12)
[2022-02-12] MEDS: buPROPion-XL 150 MG TABCR 300 MG PO (10:12)
[2022-02-12] MEDS: Sertraline 100 MG TAB PO (10:13)
[2022-02-12] MEDS: MORPHine 2 MG/ML SYR IVP ×3 (10:23→20:15)
[2022-02-12] MEDS: Lansoprazole 30 MG CAPCR PO (10:24)
--- NOTE | 2022-02-12 14:56 | CHAPLAIN ---
Benita was in bed when I visited. She said she is dealing with a headache. She was still very pleasant and thanked me for the rosary beads I gave her yesterday.
--- NOTE | 2022-02-12 15:31 | PDOC.CMPRO ---
- If Service Date Differs Date of service: 02/12/22 Time of Service: 15:31 Care Management Progress Note S/O: Benita was lying in bed when CM met with her. She stated that she is not having a good day, as she is not feeling well. She stated that per MD, she would remain for IV antibiotics. She stated that she is comfortable with the plan to stay for a few more days. She reported that she is independent and does not feel that she will require services upon discharge. CM will continue to follow. A: Benita is a 67 year old female admitted to [facility] on 02/10/22 with diverticulitis. P: Anticipate Benita will discharge home with no new [facility] services via private vehicle with friend Delfina. She will follow up with her community providers as scheduled and discharge plan of care as prescribed. Benita's preferred pharmacy is [facility] in [place], if New RX's are needed. CM will continue to follow.
[2022-02-12] MEDS: Acetaminophen 250 mg/Aspirin 250 mg/Caffeine 65 mg TAB 2 EACH PO ×2 (16:17→18:29)
[2022-02-12] MEDS: ERTAPENEM 1 GM in Normal Saline 50 ML IVPB (16:18)
[2022-02-12] MEDS: Ondansetron 4 MG/2 ML VIAL IVP (20:15)
[2022-02-12] MEDS: Lactated Ringers 1,000 ML 75 ML IV (20:32)
[2022-02-12] MEDS: Prazosin 1 MG CAP 2 MG PO (21:51)
[2022-02-12] MEDS: Lurasidone 40 MG TAB 80 MG PO (21:52)
[2022-02-12] MEDS: traZODone 100 MG TAB 200 MG PO (21:52)
[2022-02-12] MEDS: lamoTRIgine 100 MG TAB 200 MG PO (21:53)
[2022-02-13] VITALS: PULSE 65
[2022-02-13] MEDS: Ketorolac 15 MG/ML VIAL IVP ×3 (04:38→16:43)
[2022-02-13 07:00] VITALS: PULSE 73
[2022-02-13] MEDS: Mylanta Suspension 30 ML CUP PO ×3 (07:24→19:24)
[2022-02-13] MEDS: Lansoprazole 30 MG CAPCR PO (07:25)
[2022-02-13] MEDS: Acetaminophen 250 mg/Aspirin 250 mg/Caffeine 65 mg TAB 2 EACH PO ×3 (07:25→19:25)
[2022-02-13] MEDS: LORazepam 1 MG TAB PO ×2 (07:25→19:24)
[2022-02-13 07:44] LABS: Abs Immature Grans 0.03 10^3/uL (0.0-0.06); Absolute Basophil Count 0.05 10^3/uL (0.0-0.2); Absolute Eosinophil Count 0.44 10^3/uL (0.0-0.7); Absolute Lymphocyte Count 0.98 10^3/uL (1.2-3.4); Absolute Neutrophil Count 3.11 10^3/uL (1.2-6.7); Immature Grans % 0.6; MCH 32.4 pg (27.0-33.0); MCHC 33.8 % (32.0-36.0); MCV 96 fL (80-95); MPV 9.2 fL (8.0-11.0); Monocytes % 6.1; Neutrophils % 63.3; Platelet Count 190 10^3/uL (130-400); RBC 4.07 10^6/uL (3.93-5.22); RDW 12.5 % (11.7-14.6); WBC 4.91 10^3/uL (4.4-10.8)
[2022-02-13 07:48] VITALS: BP 129/77; PULSE 70; RESP 18; TEMP 36.4; O2SAT 92
[2022-02-13 07:48] LABS: HGB 13.2 g/dL (11.2-15.7)
[2022-02-13] MEDS: Sertraline 100 MG TAB PO (07:50)
[2022-02-13] MEDS: Docusate Sodium 100 MG CAP PO ×3 (07:50→21:37)
[2022-02-13] MEDS: buPROPion-XL 150 MG TABCR 300 MG PO (07:50)
[2022-02-13] MEDS: Atorvastatin 20 MG TAB PO (07:50)
[2022-02-13] MEDS: Famotidine 20 MG TAB PO (07:50)
[2022-02-13] MEDS: Normal Saline Flush 10 ML SYR IVP ×4 (07:59→16:44)
[2022-02-13] MEDS: Ondansetron 4 MG/2 ML VIAL IVP (07:59)
[2022-02-13 08:12] LABS: Anion Gap 8.5 mmol/L (3-11); BUN 3 mg/dL (7-18); CO2 26.5 mmol/L (21.0-32.0); CREATININE 1.1 mg/dL (0.55-1.02); Calcium 8.5 mg/dL (8.5-10.1); Chloride 101 mmol/L (98-107); Estimated GFR 49.85 (mL/min/1.73m2); Glucose 163 mg/dL (74-106); Magnesium 1.9 mg/dL (1.8-2.4); PHOSPHORUS 3.5 mg/dL (2.6-4.7); Potassium 3.9 mmol/L (3.5-5.1); Sodium 136 mmol/L (136-145)
[2022-02-13 09:04] VITALS: BP 118/63; PULSE 67; RESP 20; TEMP 36.8; O2SAT 92
[2022-02-13] MEDS: Lactated Ringers 1,000 ML 75 ML IV (09:56)
[2022-02-13] MEDS: MORPHine 2 MG/ML SYR IVP ×2 (10:43→19:24)
--- NOTE | 2022-02-13 12:55 | W.PM.PROGNOT ---
Date of Service Date of service: 02/13/22 Time of Service: 11:58 Assessment and Plan Assessment and plan (1) Diverticulitis large intestine: Status: Acute Assessment and plan: Patient is tolerating the clear liquid diet. Abdominal pain is being well controlled and improved today. Continues to have loose stool and intermittent nausea. Reports resolution of migraine with Excedrin yesterday, today complains of a mild headache. Advanced to full liquid diet with ensure supplementation. Counseled on remaining on liquids until abdominal pain resolves. Needs counseling on low fiber diet, will place office assistant receptionist consultation. IV Antibiotics increased to Invanz yesterday, continue while inpatient and can transition to PO when stable for discharge AM labs reviewed and remain stable Encouraged activity OOB, sitting in the chair and ambulation. (2) Bipolar I disorder: Status: Acute Assessment and plan: Appreciate assistance from pharmacy for medication adjustments given polypharmacy and multiple drug interactions on outpatient home medications (3) Essential hypertension: Status: Acute (4) Gastroesophageal reflux disease with esophagitis: Status: Acute (5) Hyperlipidemia: Status: Acute Subjective Subjective Patient reports: no new complaints, feels better, tolerating liquids well, bowel movement and diarrhea Exam Const General: cooperative, healthy appearing and comfortable Orientation: alert and oriented x3 Resp Effort & Inspection: normal respiratory effort, no audible wheezes and no cough GI Inspection: normal to inspection Palpation: soft, no guarding and tender (improved) in the epigastrum and in the LLQ Objective Last Vital Signs Temp 98.2 F 02/13/22 09:04 Pulse 67 02/13/22 09:04 Resp 20 02/13/22 09:04 BP 118/63 02/13/22 09:04 Pulse Ox 92 02/13/22 09:04 Laboratory Results - last 24 hr 02/13/22 02/13/22 07:30 07:30 WBC 4.91 RBC 4.07 Hgb 13.2 Hct 39.0 MCV 96 H MCH 32.4 MCHC 33.8 RDW 12.5 Plt Count 190 MPV 9.2 Immature Gran % 0.6 Neutrophils % 63.3 Lymphocytes % 20.0 Monocytes % 6.1 Eosinophils % 9.0 Basophils % 1.0 Nucleated RBC % 0.0 Absolute Neutrophils 3.11 Absolute Lymphocytes 0.98 L Absolute Monocytes 0.30 Absolute Eosinophils 0.44 Absolute Basophils 0.05 Sodium 136 Potassium 3.9 Chloride 101 Carbon Dioxide 26.5 Anion Gap 8.5 BUN 3 L Creatinine 1.1 H Estimated GFR/1.73 m2 49.85 Glucose 163 H Calcium 8.5 Phosphorus 3.5 Magnesium 1.9
[2022-02-13 14:15] VITALS: BP 135/86; PULSE 63; RESP 19; TEMP 36.8; O2SAT 91
[2022-02-13 15:29] VITALS: PULSE 62
[2022-02-13] MEDS: Normal Saline 500 ML 100 ML IV (16:44)
[2022-02-13] MEDS: ERTAPENEM 1 GM in Normal Saline 50 ML IVPB (16:44)
[2022-02-13] MEDS: Lurasidone 40 MG TAB 160 MG PO (21:37)
[2022-02-13] MEDS: Prazosin 1 MG CAP 2 MG PO (21:37)
[2022-02-13] MEDS: traZODone 100 MG TAB 200 MG PO (21:37)
[2022-02-13] MEDS: Haloperidol 1 MG TAB 2 MG PO (21:37)
[2022-02-13] MEDS: lamoTRIgine 100 MG TAB 200 MG PO (21:38)
[2022-02-14] VITALS (7 sets, daily range): BP systolic 122–155; BP diastolic 71–86; PULSE 54–80; RESP 16–17; TEMP 35.9–36.7; O2SAT 91–99
[2022-02-14] MEDS: Lactated Ringers 1,000 ML 75 ML IV ×2 (00:55→14:45)
[2022-02-14] MEDS: Famotidine 20 MG TAB PO (07:38)
[2022-02-14] MEDS: Acetaminophen 250 mg/Aspirin 250 mg/Caffeine 65 mg TAB 2 EACH PO (07:38)
[2022-02-14] MEDS: Mylanta Suspension 30 ML CUP PO (07:38)
[2022-02-14] MEDS: LORazepam 1 MG TAB PO ×2 (07:38→20:49)
[2022-02-14] MEDS: buPROPion-XL 150 MG TABCR 300 MG PO (07:39)
[2022-02-14] MEDS: Atorvastatin 20 MG TAB PO (07:39)
[2022-02-14] MEDS: Sertraline 100 MG TAB PO (07:39)
[2022-02-14] MEDS: Lansoprazole 30 MG CAPCR PO (07:39)
[2022-02-14] MEDS: Ondansetron 4 MG/2 ML VIAL IVP ×2 (07:58→13:43)
[2022-02-14] MEDS: Normal Saline Flush 10 ML SYR IVP ×5 (07:59→22:28)
[2022-02-14] MEDS: MORPHine 2 MG/ML SYR IVP ×3 (07:59→20:47)
--- NOTE | 2022-02-14 08:51 | W.PM.PROGNOT ---
Date of Service Date of service: 02/14/22 Time of Service: 08:51 Assessment and Plan Assessment and plan (1) Diverticulitis large intestine: Status: Acute Assessment and plan: Continue full liquid diet with supplementation. Abdominal pain is being well controlled and has continued to improve. Multiple episodes of large quantity diarrhea overnight, c.diff negative Counseled on remaining on liquids with meal supplement drinks until abdominal pain completely resolves. 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 Continue IV abx, on Invanz. Continue while inpatient and can transition to PO when stable for discharge, possibly in AM. Offered DC home today patient would rather wait until tomorrow. Lab holiday today, ordered for tomorrow AM. Encouraged activity OOB, sitting in the chair and ambulation. (2) Bipolar I disorder: Status: Acute Assessment and plan: Appreciate assistance from pharmacy for medication adjustments given polypharmacy and multiple drug interactions on outpatient home medications (3) Essential hypertension: Status: Acute (4) Gastroesophageal reflux disease with esophagitis: Status: Acute (5) Hyperlipidemia: Status: Acute Subjective Subjective Patient reports: no new complaints, pain is less, tolerating liquids well, bowel movement, diarrhea and afebrile; denies nausea or vomiting Exam Const General: cooperative, healthy appearing and comfortable Orientation: alert and oriented x3 Resp Effort & Inspection: normal respiratory effort, no audible wheezes and no cough GI Inspection: normal to inspection and non-distended Palpation: soft, not firm, no guarding and tender (significantly improved, mild discomfort) in the LLQ; with no rebound tenderness Percussion: normal to percussion Objective Last Vital Signs Temp 96.6 F L 02/14/22 07:30 Pulse 74 02/14/22 07:30 Resp 17 02/14/22 07:30 BP 155/83 H 02/14/22 07:30 Pulse Ox 99 02/14/22 07:30
[2022-02-14 09:03] LABS: C Diff PCR Negative (Negative)
[2022-02-14] MEDS: Ketorolac 15 MG/ML VIAL IVP ×3 (09:42→22:28)
[2022-02-14] MEDS: ERTAPENEM 1 GM in Normal Saline 50 ML IVPB (17:07)
[2022-02-14] MEDS: lamoTRIgine 100 MG TAB 200 MG PO (20:48)
[2022-02-14] MEDS: Haloperidol 1 MG TAB 2 MG PO (20:48)
[2022-02-14] MEDS: Simethicone 80 MG CHEW PO (20:48)
[2022-02-14] MEDS: Prazosin 1 MG CAP 2 MG PO (20:49)
[2022-02-14] MEDS: traZODone 100 MG TAB 200 MG PO (20:50)
[2022-02-14] MEDS: Lurasidone 40 MG TAB 160 MG PO (20:50)
[2022-02-15 00:52] VITALS: PULSE 58
[2022-02-15] MEDS: Acetaminophen 250 mg/Aspirin 250 mg/Caffeine 65 mg TAB 2 EACH PO ×2 (01:30→06:41)
[2022-02-15] MEDS: Lactated Ringers 1,000 ML 75 ML IV (03:14)
[2022-02-15] MEDS: Ketorolac 15 MG/ML VIAL IVP ×2 (04:21→10:08)
[2022-02-15] MEDS: Lansoprazole 30 MG CAPCR PO (06:41)
[2022-02-15 07:22] LABS: Abs Immature Grans 0.04 10^3/uL (0.0-0.06); Absolute Basophil Count 0.06 10^3/uL (0.0-0.2); Absolute Lymphocyte Count 1.72 10^3/uL (1.2-3.4); Absolute Monocyte Count 0.45 10^3/uL (0.1-0.8); Basophils % 1.2; Eosinophils % 9.9; HGB 13.1 g/dL (11.2-15.7); Immature Grans % 0.8; Lymphocytes % 33.9; MCH 32.3 pg (27.0-33.0); MCHC 33.6 % (32.0-36.0); MCV 96 fL (80-95); MPV 9.5 fL (8.0-11.0); Monocytes % 8.9; Neutrophils % 45.3; Platelet Count 196 10^3/uL (130-400); RBC 4.05 10^6/uL (3.93-5.22); RDW 12.5 % (11.7-14.6); RDW-SD 44.3 fL; WBC 5.07 10^3/uL (4.4-10.8)
[2022-02-15 07:30] VITALS: BP 154/91; PULSE 62; RESP 18; TEMP 36.9; O2SAT 95
[2022-02-15 07:48] LABS: Anion Gap 7.4 mmol/L (3-11); BUN 7 mg/dL (7-18); CO2 29.6 mmol/L (21.0-32.0); CREATININE 1.1 mg/dL (0.55-1.02); Calcium 9.7 mg/dL (8.5-10.1); Chloride 104 mmol/L (98-107); Estimated GFR 49.85 (mL/min/1.73m2); Glucose 94 mg/dL (74-106); Magnesium 1.9 mg/dL (1.8-2.4); PHOSPHORUS 5.2 mg/dL (2.6-4.7); Potassium 4.3 mmol/L (3.5-5.1); Sodium 141 mmol/L (136-145)
[2022-02-15] MEDS: LORazepam 1 MG TAB PO (07:49)
[2022-02-15] MEDS: buPROPion-XL 150 MG TABCR 300 MG PO (07:49)
[2022-02-15] MEDS: Atorvastatin 20 MG TAB PO (07:49)
[2022-02-15] MEDS: Sertraline 100 MG TAB PO (07:49)
[2022-02-15] MEDS: Docusate Sodium 100 MG CAP PO (07:49)
[2022-02-15] MEDS: Famotidine 20 MG TAB PO (07:49)
[2022-02-15 08:31] VITALS: PULSE 68
--- NOTE | 2022-02-15 09:15 | W.PM.PROGNOT ---
Date of Service Date of service: 02/15/22 Time of Service: 09:15 Assessment and Plan Assessment and plan (1) Diverticulitis large intestine: Status: Acute Assessment and plan: Continue full liquid diet with supplementation. Abdominal pain is being well controlled Continue IV abx, on Invanz. Continue while inpatient and can transition to PO when stable for discharge, possibly in AM. Encouraged activity OOB, sitting in the chair and ambulation. (2) Bipolar I disorder: Status: Acute Assessment and plan: Appreciate assistance from pharmacy for medication adjustments given polypharmacy and multiple drug interactions on outpatient home medications (3) Essential hypertension: Status: Acute (4) Gastroesophageal reflux disease with esophagitis: Status: Acute (5) Hyperlipidemia: Status: Acute Subjective Subjective Interval history since last seen: Patient denies having any abdominal pain at this time. She states I am going home today. Arrived with her eating breakfast, which she states was not bothering her. Exam Const General: cooperative, healthy appearing and comfortable Orientation: alert and oriented x3 Resp Effort & Inspection: normal respiratory effort, no audible wheezes and no cough GI Inspection: normal to inspection Palpation: soft, no guarding and nontender Objective Last Vital Signs Temp 36.7 C 02/14/22 19:21 Pulse 68 02/15/22 08:31 Resp 16 02/14/22 19:21 BP 143/86 H 02/14/22 19:21 Pulse Ox 94 02/14/22 19:21 Laboratory Results - last 24 hr 02/15/22 02/15/22 07:05 07:05 WBC 5.07 RBC 4.05 Hgb 13.1 Hct 39.0 MCV 96 H MCH 32.3 MCHC 33.6 RDW 12.5 Plt Count 196 MPV 9.5 Immature Gran % 0.8 Neutrophils % 45.3 Lymphocytes % 33.9 Monocytes % 8.9 Eosinophils % 9.9 Basophils % 1.2 Nucleated RBC % 0.0 Absolute Neutrophils 2.30 Absolute Lymphocytes 1.72 Absolute Monocytes 0.45 Absolute Eosinophils 0.50 Absolute Basophils 0.06 Sodium 141 Potassium 4.3 Chloride 104 Carbon Dioxide 29.6 Anion Gap 7.4 BUN 7 Creatinine 1.1 H Estimated GFR/1.73 m2 49.85 Glucose 94 Calcium 9.7 Phosphorus 5.2 H Magnesium 1.9
--- NOTE | 2022-02-15 09:32 | PDOC.CMPRO ---
- If Service Date Differs Date of service: 02/15/22 Time of Service: 09:32 Care Management Progress Note S/O: A: Benita is a 67 year old female admitted to [facility] on 02/10/22 with diverticulitis. P: Anticipate Benita will discharge home with no new [facility] services via private vehicle with friend Delfina. She will follow up with her community providers as scheduled and discharge plan of care as prescribed. Benita's preferred pharmacy is [facility] in [place], if New RX's are needed. CM will continue to follow.
--- NOTE | 2022-02-15 09:32 | W.PM.DS.N ---
Date of service: 02/15/22 Time of Service: 09:33 DS: Diagnosis Discharge Diagnosis (1) Diverticulitis large intestine: Status: Acute (2) Bipolar I disorder: Status: Acute (3) Essential hypertension: Status: Acute (4) Gastroesophageal reflux disease with esophagitis: Status: Acute (5) Hyperlipidemia: Status: Acute Discharge Plan Disposition Patient Disposition: HOME Condition: Stable Discharge Details Reason For Visit: diverticulitis Admit Date/Time: 02/10/22 14:25 Admit Provider: Mercy Rivera Attending Provider: Mercy Rivera [facility]: Ms Jenkins is a pleasant 67 year old female admitted for diverticulitis with phlegmon. She was started on IV antibiotics and placed on a clear liquid diet. Over the next few days her pain subsided and she started to have soft BM's. Discussed eating a low fiber diet. Antibiotics for 10 more days. She is still at risk of developing an abscess despite the IV antibiotics. Home Meds and New Rx's Prescriptions: New prazosin 1 mg Capsule 2 mg PO HS Qty: 60 1RF sertraline 100 mg Tablet 100 mg PO DAILY Qty: 30 1RF trazodone 100 mg Tablet 200 mg PO HS Qty: 60 1RF ciprofloxacin HCl [Cipro] 500 mg tablet 500 mg PO BID Qty: 20 0RF metronidazole 500 mg tablet 500 mg PO Q8H 10 Days Qty: 30 0RF Continued Slow-Mag 71.5 MG tablet,delayed release (DR/EC) 2 tab PO DAILY Qty: 60 lansoprazole 30 mg capsule,delayed release(DR/EC) 30 mg PO DAILY Qty: 90 3RF cetirizine 10 mg tablet 10 mg PO DAILY Qty: 90 3RF atorvastatin 20 mg tablet 20 mg PO DAILY Qty: 90 3RF Rx Instructions: take one tablet daily eyhmwupeig-pjzyqiuomfnpt-qmew 50-300-40 mg capsule 1 cap PO DAILY PRN (Reason: headache) Qty: 4 0RF lorazepam 1 MG tablet 1 tab PO BID Label Comments: Now TID 04/21/16 [employer] haloperidol 2 MG tablet 2 mg PO HS lnatllyljkys-jvlb-lnzzc acid 18-400 mg-mcg Tablet 1 tab PO DAILY lamotrigine 200 mg tablet 200 mg PO DAILY Label Comments: TAKE ONE TABLET BY MOUTH EVERY DAY. STOP MED IF RASH OCCURS Latuda 20 mg tablet 40 mg PO DAILY Label Comments: TAKE TWO TABLETS BY MOUTH EVERY MORNING WITH A MEAL FOR TOTAL 160MG/DAY Rx Instructions: TAKE WITH 120 MG TAB FOR TOTAL 160 MG DAILY Latuda 120 mg tablet 120 mg PO DAILY Label Comments: TAKE ONE TABLET BY MOUTH EVERY DAY WITH MEALS WITH TWO 20MG TABLETS FOR TOTAL 160MG/DAY Rx Instructions: TAKE WITH FOOD, TAKE WITH TWO 20 MG TABS FOR TOTAL OF 160 MG DAILY prazosin 2 mg capsule 2 mg PO QPM Label Comments: TAKE ONE CAPSULE BY MOUTH EVERY EVENING trazodone 100 mg tablet 200 mg PO HS Label Comments: TAKE TWO TABLET BY MOUTH AT BEDTIME sertraline 100 mg tablet 100 mg PO DAILY Label Comments: TAKE ONE TABLET BY MOUTH EVERY DAY bupropion HCl 300 mg tablet extended release 24 hr 300 mg PO DAILY Label Comments: TAKE ONE TABLET BY MOUTH EVERY DAY Discharge Instructions Instructions: Low Fiber Diet (DC) Additional Instructions: Activity at Home after surgery: 1. As tolerated. Its important to walk around at least 4 x a day Diet, Nutrition, & wound healin. Low fiber diet Pain Medications: 1. Tylenol 650mg every 6 hours as needed and Ibuprofen 600 mg every 6 hours as needed. You may alternate between the 2 medications every 3 hours For Constipation: 1. Take Milk of Magnesia or MiraLax as needed for constipation Other: 1. Antibiotics have been sent in to your pharmacy. Please take them as Rx for 10 days Please call our office if you develop: 1. Fevers >101.5 2. Nausea or Vomiting 3. Worsening pain 4. Redness and thick discharge from the wounds If after hours please call the Hospital at and ask to speak to the on-call surgeon Referrals: Mercy Rivera MD [ [facility] STAFF PHYSICIAN] - (next week) Activity:: Activity as Tolerated Equipment/Supplies:: No Equipment Needed Diet:: low fiber Discharge Orders Discharge Orders: Discharge Order (Routine); Ordered 02/15/22 Ordered By: Mercy Rivera DS: Summary Time Spent with Patient providing and/or coordinating discharge services: Greater than 30 minutes Status at Discharge Functional status at discharge: independent ambulation Overall status at discharge: patient is back to baseline Mental Status: mental status grossly normal Speech and Movement: speech and movement normal Mood: congruent mood Affect: normal affect Exam Psych Mental Status: mental status grossly normal Speech and Movement: speech and movement normal Mood: congruent mood Affect: normal affect DS: Data Vitals/I&O Vitals and I&O: Vital Signs Temperature 98.4 F 02/15/22 07:30 Temperature Source Tympanic 02/15/22 07:30 Pulse 68 02/15/22 08:31 Pulse Rhythm Regular 02/15/22 07:54 Respiratory Rate 18 02/15/22 07:30 Respiratory Effort 02/15/22 07:54 Respiratory Depth Normal 02/15/22 07:54 Respiratory Pattern Normal 02/15/22 07:54 Blood Pressure 154/91 H 02/15/22 07:30 Pulse Oximetry 95 02/15/22 07:30 Oxygen Delivery Method Room Air 02/15/22 07:30 Oxygen Flow Rate 0 02/15/22 07:30 Pain Level 3 02/15/22 07:30 Comment 02/14/22 19:21 Intake & Output 02/14/22 02/14/22 02/15/22 11:59 23:59 11:59 Intake Total 1780 / 3360 1580 / 3360 936.25 / 936.25 Output Total 800 / 800 Balance 980 / 2560 1580 / 2560 936.25 / 936.25 Intake: IV 490 / 1590 1100 / 1590 936.25 / 936.25 Oral 1290 / 1770 480 / 1770 Output: Urine 800 / 800 Other: Urine Color Yellow Yellow Urine Appearance Clear Clear Clear Urine Odor Normal Normal Comment Void x1 in the toilet. Patient had 1 void Stool Size Moderate Stool Characteristics Soft Liquid Brown Voiding Methods Toilet Toilet Toilet Data Completed and Pending Labs on day of discharge: Labs from last 24 hours 02/15/22 02/15/22 07:05 07:05 WBC 5.07 RBC 4.05 Hgb 13.1 Hct 39.0 MCV 96 H MCH 32.3 MCHC 33.6 RDW 12.5 Plt Count 196 MPV 9.5 Immature Gran % 0.8 Neutrophils % 45.3 Lymphocytes % 33.9 Monocytes % 8.9 Eosinophils % 9.9 Basophils % 1.2 Nucleated RBC % 0.0 Absolute Neutrophils 2.30 Absolute Lymphocytes 1.72 Absolute Monocytes 0.45 Absolute Eosinophils 0.50 Absolute Basophils 0.06 Sodium 141 Potassium 4.3 Chloride 104 Carbon Dioxide 29.6 Anion Gap 7.4 BUN 7 Creatinine 1.1 H Estimated GFR/1.73 m2 49.85 Glucose 94 Calcium 9.7 Phosphorus 5.2 H Magnesium 1.9 PFSH All Active Problems Diverticulitis large intestine (Acute) Tooth ache (Acute) Viral syndrome (Acute) Allergic rhinitis (Acute 05/05/15) Bipolar I disorder (Acute) Essential hypertension (Acute 06/28/13) no rx (2014) Gastroesophageal reflux disease with esophagitis (Acute) gastroscopy February 2013: oesophagitis () no response to Ranitidine, Pantoprazole/ on Nexium x age 31 Hyperlipidemia (Acute 03/27/13) Kidney stone (Acute) lithotripsy 2009 (right) Medical History Cramer's esophagus Benign neoplasm of kidney Bipolar I disorder Diabetes mellitus Essential hypertension Glaucoma Hyperlipidemia Hypothyroidism Postmenopausal bleeding uterine fibroids Surgical History Ligation of fallopian tube Vaginal hysterectomy (07/03/15) UTEROSACRAL SUSPENSION; CYSTOSCOPY, RECTOCELE REPAIR Family History Mother Essential hypertension Personal history of malignant neoplasm LUNG Stroke Father Essential hypertension Heart disease Hyperlipidemia Sister No problems noted. Sister No problems noted. Brother Heart disease DOUBLE BYPASS AGE 48 (NON SMOKER) Hyperlipidemia Grandfather Personal history of malignant neoplasm LUNG Grandfather No problems noted. Grandmother Heart disease Myocardial infarction Grandmother Diabetes Son No problems noted. Son Depression Daughter Depression Social History Smoking/Tobacco Use Status: Former Tobacco Use Smoking risk assessment performed?: Yes Alcohol Intake: never Drug use: Never Substance use type: does not use Do you feel safe at home: Yes Do you feel safe in your relationship?: Yes
[2022-02-15 09:41] VITALS: PULSE 80
--- NOTE | 2022-02-15 10:07 | PDOC.CMDIS ---
- If Service Date Differs Date of service: 02/15/22 Time of Service: 10:07 LACE Index Scoring Tool - Questions: Length of Stay (in days): 4 - 6 Acuity (Admit via E.D.?): Yes E.D. Visits: 1 - Answers: Total Score: 8 Risk of Readmission: Low Risk Care Management Discharge Reason for Hospitalization: Diverticulitis large intestine Discharge Plan: Discharge home via private vehicle with friend. New RX's sent to [facility] will follow up with General Surgery in 2 weeks as scheduled. No new [facility] services are indicated at this time. Patient/Family Education Needs: Review discharge instructions, limitations, medications and plan to follow up with community providers. ask me three.
[2022-02-15] MEDS: Normal Saline Flush 10 ML SYR IVP (10:08)
== END 2022-02-15 10:22 | disposition home or self-care (01) | DRG 392 ==
LOC: ER 14:29 → MS 15:35
PROVIDERS: Surgery; Admitting Provider Surgery; Emergency Provider Registered Nurse Emergency; PCP Nurse Practitioner Family; Visit Provider Surgery
DX: F31.89 Other bipolar disorder; F31.9 Bipolar disorder, unspecified; I10 Essential (primary) hypertension; E78.5 Hyperlipidemia, unspecified; K21.00 Gastro-esophageal reflux disease with esophagitis, without bleeding; E11.9 Type 2 diabetes mellitus without complications; E03.9 Hypothyroidism, unspecified; H40.9 Unspecified glaucoma; Z87.891 Personal history of nicotine dependence; K57.20 Diverticulitis of large intestine with perforation and abscess without bleeding
CPT/HCPCS: 36415; 80048; 80053; 83690; 87493; 87635; 96374; 99223; 99232; 99239; 99285; U0005; 74176; 81003; 81015; 83735; 84100; 85025; J0744; J1335; J1885; J2270; J2405

== ENCOUNTER 2022-04-16 05:32 | Inpatient (IN) | payer MEDICARE, MEDICAID, SELFPAY ==
[2022-04-16] VITALS (48 sets, daily range): BP systolic 106–133; BP diastolic 60–83; PULSE 67–129; RESP 12–27; TEMP 36.4–36.6; O2SAT 86–96
--- NOTE | 2022-04-16 05:45 | DI.CT_ITS ---
Exam(s) CT CHEST/ABD/PEL WO EXAM: CT CHEST/ABD/PEL WO CLINICAL HISTORY: hypoxic, epigastric and LLQ abdominal pain, hx tic. TECHNIQUE: Imaging Protocol: Axial computed tomography images with coronal and sagittal reformatted images were created and reviewed CONTRAST MATERIAL: Noncontrast COMPARISON: CT CT ABDOMEN PELVIS WO from 02/10/2022 FINDINGS: CHEST: Tracheobronchial tree: Patent where visualized. Mediastinum and Edilia: No dominant adenopathy or fluid collection. Pulmonary parenchyma: Linear atelectasis or scarring at the right lung base. No consolidation or dom inant measurable mass. Pleura: No effusion or pneumothorax. Lymph nodes: Within normal limits. Aorta: Thoracic portion non-dilated. Heart: Normal size. A tiny pericardial effusion versus pericardial thickening seen anteriorly, not s ignificantly changed from prior.. Mild coronary artery calcifications. Bones: Unremarkable for age. No lytic or blastic lesions. ABDOMEN: Liver: Normal density. No measurable mass. Gallbladder and biliary tract: Status post cholecystectomy. No radiodense calculus or dilation. Pancreas: Normal density, no abnormal calcifications or inflammatory process. Spleen: Normal. Kidneys: Normal size, contour and axis. No radiodense stones or obstructive uropathy. 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 Adrenal glands: No masses seen. Aorta: Abdominal portion non-dilated. Lymph nodes: Within normal limits. Soft tissues: Unremarkable. Bowel: Small hiatal hernia. PELVIS: Bladder: Symmetric distention, no gross wall thickening. Bowel: Multi focal diverticulosis, greatest in the sigmoid region. Continued surrounding inflammatio n in the sigmoid. Some adjacent fluid. No obstruction . Peritoneal cavity: No ascites, or focal abscess collection Bones: Unremarkable for age.. Reproductive organs: Status post hysterectomy. IMPRESSION: Sigmoid diverticulitis, similar location to prior. No abscess. No acute abnormality in the chest. RADIATION DOSE DELIVERED: 1,249.88mGy.cm Total DLP 1,249.88mGy.cm Total DLP 1,249.88mGy.cm Total DLP DATA REPOSITORY: All CT scans at this facility are submitted to the National Radiology Data Registry (NRDR) Dose Index Registry (DIR) with the [employer] ([employer]). RADIATION OPTIMIZATION: All CT scans at this facility use at least one of these dose optimization te chniques: automated exposure control; mA and/or kV adjustment per patient size (includes targeted exa ms where dose is matched to clinical indication); or iterative reconstruction.
[2022-04-16 05:59] LABS: Abs Immature Grans 0.04 10^3/uL (0.0-0.06); Absolute Basophil Count 0.05 10^3/uL (0.0-0.2); Absolute Eosinophil Count 0.23 10^3/uL (0.0-0.7); Absolute Lymphocyte Count 1.61 10^3/uL (1.2-3.4); Absolute Monocyte Count 0.92 10^3/uL (0.1-0.8); Basophils % 0.5; Eosinophils % 2.3; HCT 42.6 % (36.0-46.0); HGB 14.3 g/dL (11.2-15.7); Immature Grans % 0.4; Lymphocytes % 16.2; MCH 32.1 pg (27.0-33.0); MCHC 33.6 % (32.0-36.0); MCV 96 fL (80-95); MPV 10.4 fL (8.0-11.0); Monocytes % 9.2; Neutrophils % 71.4; Platelet Count 144 10^3/uL (130-400); RBC 4.46 10^6/uL (3.93-5.22); RDW 12.9 % (11.7-14.6); WBC 9.95 10^3/uL (4.4-10.8)
--- NOTE | 2022-04-16 06:00 | ED.GENADUL_ITS ---
Discharge Plan Disposition Patient Disposition: [facility] INPATIENT Condition: Stable Discharge Details Clinical Impression: Diverticulitis of sigmoid colon, Hypoxia Admit Date/Time: 04/16/22 09:48 Admit Provider: Armond Jose Attending Provider: Armond Jose Primary Care Provider: Cathie Strange ED Provider: Vlad Samaniego Discharge Data Discharge Date/Time-TO BE ENTERED AT DEPARTURE: 04/16/22 11:20 Medical Decision Making This is a 67-year-old female with a past medical history of diabetes mellitus, bipolar disorder, hypertension, high cholesterol, and previous diverticulitis episode a month and a half ago requiring admission and IV antibiotics with an associated phlegmon, who presents today for evaluation of abdominal pain. Patient states that for the last few days she has had increasing generalized abdominal pain, with symptoms stretching back 1 week. She has associated diarrhea which is nonbloody. She denies vomiting but does admit to nausea. Pain is made worse with movement. She has been having a decreased oral intake secondary to this. She is brought in by EMS today. She denies any chest pain or shortness of breath. She denies any numbness or tingling. No other complaints at this time. No other modifying factors. Past surgical history is positive for cholecystectomy. Exam demonstrates generalized tenderness throughout the abdomen, particularly the left lower quadrant. Vital signs stable. Oxygenation is slightly lower than anticipated. Patient was initially hovering around 86% on room air. She is not a smoker and has no history of lung disease. We will get CT scan of the abdomen to evaluate for diverticulitis or perforation, and we will also get imaging of the chest to evaluate for pneumonia. Will monitor closely and reassess. HPI General Date/Time Provider Initiated Documentation: 04/16/22 05:33 . HPI Narrative: This is a 67-year-old female with a past medical history of diabetes mellitus, bipolar disorder, hypertension, high cholesterol, and previous diverticulitis episode a month and a half ago requiring admission and IV antibiotics with an associated phlegmon, who presents today for evaluation of abdominal pain. Patient states that for the last few days she has had increasing generalized abdominal pain, with symptoms stretching back 1 week. She has associated diarrhea which is nonbloody. She denies vomiting but does admit to nausea. Pain is made worse with movement. She has been having a decreased oral intake secondary to this. She is brought in by EMS today. She denies any chest pain or shortness of breath. She denies any numbness or tingling. No other complaints at this time. No other modifying factors. Past surgical history is positive for cholecystectomy. Related Data Home Medications Medication Instructions Recorded Confirmed lorazepam 1 mg tablet 1 tab PO BID PRN PRN 04/06/14 04/16/22 magnesium chloride 71.5 mg 2 tab PO DAILY #60 tab-caps 04/11/14 04/16/22 (magnesium chloride) tablet,delayed release (Slow-Mag) haloperidol 2 mg tablet 2 mg PO HS 04/29/15 04/16/22 lansoprazole 30 mg capsule,delayed 30 mg PO DAILY Cramer's 12/11/21 04/16/22 release oesophagus/GERD #90 caps cetirizine 10 mg tablet 10 mg PO DAILY #90 tabs 01/01/22 04/16/22 atorvastatin 20 mg tablet 20 mg PO DAILY #90 tabs 01/06/22 04/16/22 bupropion HCl 300 mg 24 hr tablet, 300 mg PO DAILY 02/10/22 04/16/22 extended release lamotrigine 200 mg tablet 200 mg PO HS 02/10/22 04/17/22 lurasidone 120 mg tablet (Latuda) 120 mg PO DAILY 02/10/22 04/16/22 lurasidone 20 mg tablet (Latuda) 40 mg PO DAILY 02/10/22 04/16/22 multivitamin-ferrous 1 tab PO DAILY 02/10/22 04/16/22 fumarate-folic acid 18 mg-400 mcg tablet sertraline 100 mg tablet 100 mg PO DAILY 02/10/22 04/16/22 prazosin 1 mg capsule 2 mg PO HS #60 caps 02/15/22 04/16/22 trazodone 100 mg tablet 200 mg PO HS #60 tabs 02/15/22 04/16/22 fvzolysheb-xkpkoqrkwrxxk-ajahexoc 1 cap PO DAILY PRN headache #4 caps 04/05/22 04/16/22 50 mg-300 mg-40 mg capsule levofloxacin 750 mg tablet 750 mg PO Q24H #10 tabs 04/17/22 metronidazole 500 mg tablet 500 mg PO TID #28 tabs 04/17/22 Previous Rx's Medication Instructions Recorded lansoprazole 30 mg capsule,delayed 30 mg PO DAILY Cramer's 12/11/21 release oesophagus/GERD #90 caps cetirizine 10 mg tablet 10 mg PO DAILY #90 tabs 01/01/22 atorvastatin 20 mg tablet 20 mg PO DAILY #90 tabs 01/06/22 prazosin 1 mg capsule 2 mg PO HS #60 caps 02/15/22 trazodone 100 mg tablet 200 mg PO HS #60 tabs 02/15/22 xjzcwnmttv-nphbhnsovhegh-kzmyfqck 1 cap PO DAILY PRN headache #4 caps 04/05/22 50 mg-300 mg-40 mg capsule levofloxacin 750 mg tablet 750 mg PO Q24H #10 tabs 04/17/22 metronidazole 500 mg tablet 500 mg PO TID #28 tabs 04/17/22 Allergies Allergy/AdvReac Type Severity Reaction Status Date / Time Penicillins Allergy Swelling/Ed Verified 04/16/22 06:17 dilia latex AdvReac Severe Skin Rash Verified 04/16/22 06:17 azithromycin [From Zithromax] AdvReac headache, Verified 04/16/22 06:17 hearing loss,double vision, DAVILA ciprofloxacin [From Cipro] AdvReac Dizziness/L Verified 04/16/22 06:17 ightheade codeine AdvReac GI upset Verified 04/16/22 06:17 Sulfa (Sulfonamide AdvReac anxious Verified 04/16/22 06:17 Antibiotics) General Stated Complaint: Abd Prob MARIAM: 3 Review of Systems All systems reviewed & are unremarkable except as noted in HPI and below PFSH All Active Problems (Updated 04/18/22 @ 00:05 by PAM LOMAS) Bipolar I disorder (Chronic) Diverticulitis of sigmoid colon (Acute) Postmenopausal bleeding (Acute 04/10/12) Diabetes mellitus (Chronic 11/04/11) Benign neoplasm of kidney (Acute) Transient blindness (Acute) Proctocele (Acute 05/26/15) Multiple cranial nerve palsy (Acute) Complete uterine prolapse (Acute 05/26/15) Migraine (Chronic) Diverticulitis large intestine (Acute) Tooth ache (Acute) Viral syndrome (Acute) Allergic rhinitis (Acute 05/05/15) Kidney stone (Acute) lithotripsy 2009 (right) Medical History Cramer's esophagus Benign neoplasm of kidney Bipolar I disorder Bipolar I disorder Diabetes mellitus Essential hypertension Essential hypertension (06/28/13) no rx (2014) Gastroesophageal reflux disease with esophagitis gastroscopy February 2013: oesophagitis () no response to Ranitidine, Pantoprazole/ on Nexium x age 31 Glaucoma Hyperlipidemia Hyperlipidemia (03/27/13) Hypothyroidism Postmenopausal bleeding uterine fibroids Surgical History History of bilateral ligation of fallopian tubes History of esophagogastroduodenoscopy History of surgical procedure (10/03/14) History of total vaginal hysterectomy (TVH) (07/03/15) Ligation of fallopian tube Status post cystoscopy (07/03/15) Status post foot surgery Vaginal hysterectomy (07/03/15) UTEROSACRAL SUSPENSION; CYSTOSCOPY, RECTOCELE REPAIR Family History Mother Essential hypertension Personal history of malignant neoplasm LUNG Stroke Father Essential hypertension Heart disease Hyperlipidemia Sister No problems noted. Sister No problems noted. Brother Heart disease DOUBLE BYPASS AGE 48 (NON SMOKER) Hyperlipidemia Grandfather Personal history of malignant neoplasm LUNG Grandfather No problems noted. Grandmother Heart disease Myocardial infarction Grandmother Diabetes Son No problems noted. Son Depression Daughter Depression Social History Smoking/Tobacco Use Status: Former Tobacco Use Smoking risk assessment performed?: Yes Alcohol Intake: never Drug use: Never Substance use type: does not use Do you feel safe at home: Yes Do you feel safe in your relationship?: Yes Exam Narrative Exam Narrative: 1.Const: Well-nourished, Well-developed, appearing stated age 2.Eyes: PERRL, no conjunctival injection, and symmetrical lids. 3.ENT: Atraumatic external nose and ears. Moist MM. Neck: Symmetric, trachea midline, No thyromegaly. 4.CVS: +S1/S2, No murmurs or gallops. Peripheral pulses 2+ and equal in all extremities. Brisk capillary refill in all extremities. 5.RESP: Unlabored respiratory effort. Clear to auscultation bilaterally. No wheezes rales or rhonchi 6.GI: Soft, nondistended, no rebound tenderness. Mild to moderate tenderness throughout, including in the left lower quadrant in the epigastric region and the right lower quadrant. Negative heel strike test. Negative Salas sign. 7.MSK: Normocephalic/Atraumatic, Extremities w/o deformity or ttp No cyanosis or clubbing, Normal movement of all extremities 8.Skin: Warm, Dry. No rashes or lesions. 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 Sensation grossly intact, no focal neurologic deficits. 10.Psych: (AAO) x3. Appropriate mood and affect Course Vital Signs Vital signs: Vital Signs Temperature 36.6 C 04/16/22 05:31 Pulse 103 H 04/16/22 05:31 Respiratory Rate 18 04/16/22 05:31 Blood Pressure 126/68 04/16/22 05:31 Pulse Oximetry 86 L 04/16/22 05:31 Temperature 36.6 C 04/16/22 05:31 Temperature Source Temporal Artery Scan 04/16/22 05:31 Pulse 103 H 04/16/22 05:31 Respiratory Rate 18 04/16/22 05:31 Respiratory Effort 04/16/22 05:42 Blood Pressure 126/68 04/16/22 05:31 Blood Pressure Position Supine 04/16/22 05:31 Pulse Oximetry 93 04/16/22 05:42 Oxygen Delivery Method Nasal Cannula 04/16/22 05:42 Oxygen Flow Rate 2 04/16/22 05:42 Pain Level 4 04/16/22 05:42 Comment 04/16/22 05:42 Sign Out Sign Out Data: Sign Out Comment: Abdominal pain, pending CT scan of the chest abdomen and pelvis. Suspect diverticulitis. Likely will require admission. Last updated by George Bergman DO at 04/16/22 08:11
[2022-04-16] MEDS: Normal Saline 1,000 ML 1000 ML IV (06:06)
[2022-04-16 06:09] LABS: Bilirubin Negative (Negative); Blood Negative (Negative); Clarity Sl Cloudy (Clear); Glucose Negative (Negative); Ketones Negative (Negative); Leukocyte Esterase Negative (Negative); Nitrite Negative (Negative); Specific Gravity >= 1.030 (1.005-1.025); Urobilinogen 0.2 EU/dL (Up TO 0.2); pH 5.5 (5-8)
[2022-04-16] MEDS: metroNIDAZOLE 500 MG/100 ML BAG 100 MG IVPB (06:14)
[2022-04-16 06:15] LABS: ALT 28 U/L (14-59); AST 29 U/L (15-37); Albumin 3.9 g/dL (3.4-5.0); Alkaline Phosphatase 75 U/L (46-116); Anion Gap 8.2 mmol/L (3-11); BUN 14 mg/dL (7-18); Bilirubin, Total 0.3 mg/dL (0.2-1.0); CO2 25.8 mmol/L (21.0-32.0); CREATININE 0.8 mg/dL (0.55-1.02); Calcium 8.7 mg/dL (8.5-10.1); Chloride 105 mmol/L (98-107); Glucose 150 mg/dL (74-106); Sodium 139 mmol/L (136-145); Total Protein 7.2 g/dL (6.4-8.2)
[2022-04-16 06:16] LABS: Potassium 4.5 mmol/L (3.5-5.1)
[2022-04-16] MEDS: levoFLOXacin 750 MG/150 ML BAG 100 MG IVPB (07:26)
--- NOTE | 2022-04-16 07:44 | NUR.NOTE ---
Nursing Note:Pt having low O2 88-91% 0n 4L. Provider aware, results pending, Pt doesn't feel SOB, previous smoker.
[2022-04-16 07:59] LABS: D-Dimer 316 ng/mlFEU (<500)
[2022-04-16 08:00] LABS: Source Nasal/Nares
[2022-04-16 08:46] LABS: COVID-19 PCR Negative (Negative)
--- NOTE | 2022-04-16 09:03 | DI.VRAD_ITS ---
PROCEDURE INFORMATION: Exam: CT Chest Without Contrast; Diagnostic Exam date and time: 04/16/2022 6:29 AM Age: 67 years old Clinical indication: Other: Hypoxic, epigastric and llq abdominal pain, HX tic; Localized; Left lower quadrant (llq); Prior surgery; Surgery date: 6+ months; Surgery type: Cholecystectomy, hysterectomy TECHNIQUE: Imaging protocol: Diagnostic computed tomography of the chest without contrast. Radiation optimization: All CT scans at this facility use at least one of these dose optimization techniques: automated exposure control; mA and/or kV adjustment per patient size (includes targeted exams where dose is matched to clinical indication); or iterative reconstruction. COMPARISON: CT ABDOMEN PELVIS WO 02/10/2022 12:54 PM FINDINGS: Lungs: There is bibasilar linear atelectasis or linear scarring, left more than right. There is no focal airspace consolidation. Pleural spaces: Unremarkable. No pneumothorax. No pleural effusion. Heart: The heart is normal in size. There is no significant pericardial effusion. There are significant coronary artery vascular calcifications. Lymph nodes: Unremarkable. No enlarged lymph nodes. Vasculature: Unremarkable. No aortic aneurysm. Bones/joints: Unremarkable. No acute fracture. Soft tissues: Unremarkable. IMPRESSION: No significant acute thoracic pathology. PROCEDURE INFORMATION: Exam: CT Abdomen And Pelvis Without Contrast Exam date and time: 04/16/2022 6:29 AM Age: 67 years old Clinical indication: Other: Hypoxic, epigastric and llq abdominal pain, HX tic; Localized; Left lower quadrant (llq); Prior surgery; Surgery date: 6+ months; Surgery type: Cholecystectomy, hysterectomy TECHNIQUE: Imaging protocol: Computed tomography of the abdomen and pelvis without contrast. Radiation optimization: All CT scans at this facility use at least one of these dose optimization techniques: automated exposure control; mA and/or kV adjustment per patient size (includes targeted exams where dose is matched to clinical indication); or iterative reconstruction. COMPARISON: CT ABDOMEN PELVIS WO 02/10/2022 12:54 PM FINDINGS: Liver: Normal. No mass. Gallbladder and bile ducts: There are clips in the gallbladder fossa, post cholecystectomy. Pancreas: Normal. No ductal dilation. Spleen: Normal. No splenomegaly. Adrenal glands: Normal. No mass. Kidneys and ureters: There is a 2.3 cm fat containing lesion of the left kidney, not significantly changed from 02/10/2022, representing angiomyolipoma. Stomach and bowel: There are scattered diverticula throughout the colon, particularly in the sigmoid colon, with inflammatory stranding in the pericolonic soft tissues about the sigmoid colon, representing acute sigmoid diverticulitis. Appendix: No evidence of appendicitis. Intraperitoneal space: There is no intra-abdominal free air. There is no extraluminal fluid collection. Vasculature: Unremarkable. No abdominal aortic aneurysm. Lymph nodes: Unremarkable. No enlarged lymph nodes. Urinary bladder: Unremarkable as visualized. Reproductive: The uterus is surgically absent. Bones/joints: Unremarkable. No acute fracture. Soft tissues: Unremarkable. IMPRESSION: 1. Findings consistent with acute sigmoid diverticulitis. No free intraperitoneal air or loculated extraluminal fluid collection to suggest perforation or abscess. 2. 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 3. Post cholecystectomy, hysterectomy. Dictated and Authenticated by: Morro Galvan MD. Ordering:ANNAMARIE Vazquez MD
--- NOTE | 2022-04-16 09:08 | W.EDPROG ---
Date of service: 04/16/22 Time of Service: 09:08 Medical Decision Making 914 -- Care signed out by Dr. Bergman, please see his documentation regarding initial ED presentation and course. CT of the abdomen and pelvis was reviewed and interpreted by radiology: Findings consistent with acute diverticulitis with no free intraperitoneal air or loculated extraluminal fluid collection to suggest perforation or abscess. Duplex history left adrenal angiomyolipoma. Postcholecystectomy, hysterectomy. CT of the chest was interpreted by radiology: IMPRESSION: No significant acute thoracic pathology. Unclear etiology for hypoxia at this point. Patient has been given IV antibiotics for diverticulitis and given recurrence and severity, plan will be for admission for continued IV antibiotic and cardiac monitoring, further work-up for hypoxia. 926 --I spoke with Dr. Jose, on-call hospitalist present intubation course, he will admit the patient at this time. care transitioned to hospitalist service. Lab Data Lab results reviewed: Yes I reviewed the patient's lab results. Sign Out Sign Out Data: Sign Out Comment: Abdominal pain, pending CT scan of the chest abdomen and pelvis. Suspect diverticulitis. Likely will require admission. Last updated by George Bergman DO at 04/16/22 08:11 Discharge Plan Disposition Patient Disposition: [facility] INPATIENT Condition: Stable Discharge Details Clinical Impression: Diverticulitis of sigmoid colon, Hypoxia Primary Care Provider: Cathie Strange ED Provider: Vlad Samaniego Home Meds and New Rx's Prescriptions: No Action Slow-Mag 71.5 MG tablet,delayed release (DR/EC) 2 tab PO DAILY Qty: 60 lansoprazole 30 mg capsule,delayed release(DR/EC) 30 mg PO DAILY Qty: 90 3RF cetirizine 10 mg tablet 10 mg PO DAILY Qty: 90 3RF atorvastatin 20 mg tablet 20 mg PO DAILY Qty: 90 3RF Rx Instructions: take one tablet daily moxifloxacin 400 mg tablet 400 mg PO DAILY Qty: 7 0RF Rx Instructions: Allergic to Penicillin and sulfa and having adverse effects from cipro. mpapisjwgx-gmfgxwirqjgnm-vvbm 50-300-40 mg capsule 1 cap PO DAILY PRN (Reason: headache) Qty: 4 0RF lorazepam 1 MG tablet 1 tab PO BID Label Comments: Now TID 04/21/16 [employer] haloperidol 2 MG tablet 2 mg PO HS psipvnlrrxxs-nmpo-xrrsb acid 18-400 mg-mcg Tablet 1 tab PO DAILY lamotrigine 200 mg tablet 200 mg PO DAILY Label Comments: TAKE ONE TABLET BY MOUTH EVERY DAY. STOP MED IF RASH OCCURS Latuda 20 mg tablet 40 mg PO DAILY Label Comments: TAKE TWO TABLETS BY MOUTH EVERY MORNING WITH A MEAL FOR TOTAL 160MG/DAY Rx Instructions: TAKE WITH 120 MG TAB FOR TOTAL 160 MG DAILY Latuda 120 mg tablet 120 mg PO DAILY Label Comments: TAKE ONE TABLET BY MOUTH EVERY DAY WITH MEALS WITH TWO 20MG TABLETS FOR TOTAL 160MG/DAY Rx Instructions: TAKE WITH FOOD, TAKE WITH TWO 20 MG TABS FOR TOTAL OF 160 MG DAILY sertraline 100 mg tablet 100 mg PO DAILY Label Comments: TAKE ONE TABLET BY MOUTH EVERY DAY bupropion HCl 300 mg tablet extended release 24 hr 300 mg PO DAILY Label Comments: TAKE ONE TABLET BY MOUTH EVERY DAY prazosin 1 mg Capsule 2 mg PO HS Qty: 60 1RF trazodone 100 mg Tablet 200 mg PO HS Qty: 60 1RF
--- NOTE | 2022-04-16 09:33 | W.PM.HP.N ---
Date of service: 04/16/22 Time of Service: 09:33 Assessment and Plan Assessment and plan (1) Diverticulitis of sigmoid colon: Status: Acute Assessment and plan: continue levaquin and flagyl as initiated in ED clear liquid diet, advance as tolerated. IV fluids symptom management (2) Hypoxia: Status: Acute Assessment and plan: chest xray clear with no cough or symptoms incentive spirometry (3) Bipolar I disorder: Status: Chronic Assessment and plan: stable, continue home medication. (4) Discharge planning issues: Status: Acute Assessment and plan: anticipate discharge to home with no services discussed with Dr Jose. History of Present Illness History of Present Illness Chief Complaint: abdominal pain Review of Systems All systems reviewed & are unremarkable except as noted in HPI and below Constitutional Constitutional: Denies fever(s) ENT Ears, Nose, Mouth, and Throat: Denies dizziness Cardiovascular Cardiovascular: Denies chest pain and Denies dyspnea Respiratory Respiratory: Denies cough and Denies dyspnea Gastrointestinal Gastrointestinal: Reports abdominal pain Integumentary/Breasts Skin/Breast: Denies lesions Neurologic Neurologic: Denies dizziness PFSH All Active Problems (Updated 04/16/22 @ 15:55 by Joanie Salas NP) Bipolar I disorder (Chronic) Discharge planning issues (Acute) Diverticulitis of sigmoid colon (Acute) Hypoxia (Acute) Postmenopausal bleeding (Acute 04/10/12) Diabetes mellitus (Chronic 11/04/11) Benign neoplasm of kidney (Acute) Transient blindness (Acute) Proctocele (Acute 05/26/15) Multiple cranial nerve palsy (Acute) Complete uterine prolapse (Acute 05/26/15) Migraine (Chronic) Diverticulitis large intestine (Acute) Tooth ache (Acute) Viral syndrome (Acute) Allergic rhinitis (Acute 05/05/15) Kidney stone (Acute) lithotripsy 2009 (right) Medical History Cramer's esophagus Benign neoplasm of kidney Bipolar I disorder Bipolar I disorder Diabetes mellitus Essential hypertension Essential hypertension (06/28/13) no rx (2014) Gastroesophageal reflux disease with esophagitis gastroscopy February 2013: oesophagitis () no response to Ranitidine, Pantoprazole/ on Nexium x age 31 Glaucoma Hyperlipidemia Hyperlipidemia (03/27/13) Hypothyroidism Postmenopausal bleeding uterine fibroids Surgical History History of bilateral ligation of fallopian tubes History of esophagogastroduodenoscopy History of surgical procedure (10/03/14) History of total vaginal hysterectomy (TVH) (07/03/15) Ligation of fallopian tube Status post cystoscopy (07/03/15) Status post foot surgery Vaginal hysterectomy (07/03/15) UTEROSACRAL SUSPENSION; CYSTOSCOPY, RECTOCELE REPAIR Family History Mother Essential hypertension Personal history of malignant neoplasm LUNG Stroke Father Essential hypertension Heart disease Hyperlipidemia Sister No problems noted. Sister No problems noted. Brother Heart disease DOUBLE BYPASS AGE 48 (NON SMOKER) Hyperlipidemia Grandfather Personal history of malignant neoplasm LUNG Grandfather No problems noted. Grandmother Heart disease Myocardial infarction Grandmother Diabetes Son No problems noted. Son Depression Daughter Depression Social History Smoking/Tobacco Use Status: Former Tobacco Use Smoking risk assessment performed?: Yes Alcohol Intake: never Drug use: Never Substance use type: does not use Do you feel safe at home: Yes Do you feel safe in your relationship?: Yes Meds Allergies and Home Medications Allergies Allergy/AdvReac Type Severity Reaction Status Date / Time Penicillins Allergy Swelling/Ed Verified 04/16/22 06:17 dilia latex AdvReac Severe Skin Rash Verified 04/16/22 06:17 azithromycin [From Zithromax] AdvReac headache, Verified 04/16/22 06:17 hearing loss,double vision, DAVILA ciprofloxacin [From Cipro] AdvReac Dizziness/L Verified 04/16/22 06:17 ightheade codeine AdvReac GI upset Verified 04/16/22 06:17 Sulfa (Sulfonamide AdvReac anxious Verified 04/16/22 06:17 Antibiotics) Home Medications Medication Instructions Recorded Confirmed Type lorazepam 1 mg tablet 1 tab PO BID PRN PRN 04/06/14 04/16/22 History magnesium chloride 71.5 mg 2 tab PO DAILY #60 tab-caps 04/11/14 04/16/22 History (magnesium chloride) tablet,delayed release (Slow-Mag) haloperidol 2 mg tablet 2 mg PO HS 04/29/15 04/16/22 History lansoprazole 30 mg capsule,delayed 30 mg PO DAILY Cramer's 12/11/21 04/16/22 Rx release oesophagus/GERD #90 caps cetirizine 10 mg tablet 10 mg PO DAILY #90 tabs 01/01/22 04/16/22 Rx atorvastatin 20 mg tablet 20 mg PO DAILY #90 tabs 01/06/22 04/16/22 Rx bupropion HCl 300 mg 24 hr tablet, 300 mg PO DAILY 02/10/22 04/16/22 History extended release lamotrigine 200 mg tablet 200 mg PO DAILY 02/10/22 04/16/22 History lurasidone 120 mg tablet (Latuda) 120 mg PO DAILY 02/10/22 04/16/22 History lurasidone 20 mg tablet (Latuda) 40 mg PO DAILY 02/10/22 04/16/22 History multivitamin-ferrous 1 tab PO DAILY 02/10/22 04/16/22 History fumarate-folic acid 18 mg-400 mcg tablet sertraline 100 mg tablet 100 mg PO DAILY 02/10/22 04/16/22 History prazosin 1 mg capsule 2 mg PO HS #60 caps 02/15/22 04/16/22 Rx trazodone 100 mg tablet 200 mg PO HS #60 tabs 02/15/22 04/16/22 Rx unyopurhgu-lydiiopecfofv-dqprtobw 1 cap PO DAILY PRN headache #4 caps 04/05/22 04/16/22 Rx 50 mg-300 mg-40 mg capsule Exam Const General: cooperative, healthy appearing and comfortable Nutritional Appearance: average body habitus Orientation: alert, awake and oriented x3 [facility] Head: normal to inspection, normocephalic and atraumatic Mouth: oral mucosae normal Resp Effort & Inspection: normal respiratory effort Cardio Rate: regular rate Rhythm: regular rhythm GI Inspection: normal to inspection Palpation: soft, no guarding and no masses Auscultation: normal bowel sounds Skin Rashes: no rashes Neuro General: patient alert, patient awake, patient oriented x3 and no focal motor deficits Extrem General: normal to inspection, full ROM and no pedal edema Results Labs Result diagrams: 04/16/22 05:53 04/16/22 05:53 Labs: Laboratory Results - last 24 hr 08/12/22 08/12/22 08/12/22 05:53 05:53 06:02 WBC 9.95 RBC 4.46 Hgb 14.3 Hct 42.6 MCV 96 H MCH 32.1 MCHC 33.6 RDW 12.9 Plt Count 144 MPV 10.4 Immature Gran % 0.4 Neutrophils % 71.4 Lymphocytes % 16.2 Monocytes % 9.2 Eosinophils % 2.3 Basophils % 0.5 Nucleated RBC % 0.0 Absolute Neutrophils 7.10 H Absolute Lymphocytes 1.61 Absolute Monocytes 0.92 H Absolute Eosinophils 0.23 Absolute Basophils 0.05 D-Dimer Sodium 139 Potassium 4.5 Chloride 105 Carbon Dioxide 25.8 Anion Gap 8.2 BUN 14 Creatinine 0.8 Estimated GFR/1.73 m2 >= 60.00 Glucose 150 H Calcium 8.7 Total Bilirubin 0.3 AST 29 ALT 28 Alkaline Phosphatase 75 Total Protein 7.2 Albumin 3.9 Urine Color Yellow Urine Clarity Sl Cloudy Urine pH 5.5 Ur Specific Isabella >= 1.030 H Urine Protein Negative Urine Ketones Negative Urine Blood Negative Urine Nitrite Negative Urine Bilirubin Negative Urine Urobilinogen 0.2 Ur Leukocyte Esterase Negative Urine Glucose Negative COVID-19 Source SARS-CoV-2 (PCR) 04/16/22 04/16/22 07:01 07:53 WBC RBC Hgb Hct MCV MCH MCHC RDW Plt Count MPV Immature Gran % Neutrophils % Lymphocytes % Monocytes % Eosinophils % Basophils % Nucleated RBC % Absolute Neutrophils Absolute Lymphocytes Absolute Monocytes Absolute Eosinophils Absolute Basophils D-Dimer 316 Sodium Potassium Chloride Carbon Dioxide Anion Gap BUN Creatinine Estimated GFR/1.73 m2 Glucose Calcium Total Bilirubin AST ALT Alkaline Phosphatase Total Protein Albumin Urine Color Urine Clarity Urine pH Ur Specific Isabella Urine Protein Urine Ketones Urine Blood Urine Nitrite Urine Bilirubin Urine Urobilinogen Ur Leukocyte Esterase Urine Glucose COVID-19 Source Nasal/Nares SARS-CoV-2 (PCR) Negative Last Vital Signs Temp 36.6 C 04/16/22 05:31 Pulse 86 04/16/22 08:01 Resp 16 04/16/22 08:10 BP 114/69 04/16/22 08:01 Pulse Ox 93 04/16/22 08:10
[2022-04-16] MEDS: Acetaminophen 325 MG TAB 650 MG PO ×2 (12:07→20:25)
[2022-04-16] MEDS: Normal Saline Flush 10 ML SYR (12:09)
[2022-04-16] MEDS: Ketorolac 15 MG/ML VIAL IVP (12:09)
--- NOTE | 2022-04-16 14:29 | PDOC.CMIN ---
- If Service Date Differs Date of service: 04/16/22 Time of Service: 14:29 Care Management Initial Assess REASON FOR HOSPITALIZATION:: Diverticulitis PAST MEDICAL HISTORY/PAST SURGICAL HISTORY:: Medical History . Cramer's esophagus. Benign neoplasm of kidney. Bipolar I disorder. Bipolar I disorder. Diabetes mellitus. Essential hypertension. Essential hypertension (06/28/13). no rx (2014). Gastroesophageal reflux disease with esophagitis. gastroscopy February 2013: oesophagitis (). no response to Ranitidine, Pantoprazole/ on Nexium x age 31. Glaucoma. Hyperlipidemia. Hyperlipidemia (03/27/13). Hypothyroidism. Postmenopausal bleeding. uterine fibroids. Surgical History . History of bilateral ligation of fallopian tubes. History of esophagogastroduodenoscopy. History of surgical procedure (10/03/14). History of total vaginal hysterectomy (TVH) (07/03/15). Ligation of fallopian tube. Status post cystoscopy (07/03/15). Status post foot surgery. Vaginal hysterectomy (07/03/15). UTEROSACRAL SUSPENSION; CYSTOSCOPY, RECTOCELE REPAIR PREVIOUS FUNCTIONAL STATUS/SOCIAL/FAMILY SUPPORTS:: Benita lives alone in [place]. 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 She does not drive. Her neighbor Delfina is very supportive and transports her when needed. She has 3 adult children that she is not on speaking terms with. ADVANCE DIRECTIVES:: None, pt declines forms at this time. Has patient been provided with info about the portal/API?: Yes Did the patient sign up for the portal?: No CODE STATUS:: Full Code INSURANCE COVERAGE / FINANCIAL ISSUES:: Medicaid. Medicare. State of [place] disability determination. Financial Assist 100 CURRENT HOME/COMMUNITY SERVICES/EQUIPMENT:: None PRIMARY CARE PHYSICIAN:: Cathie Strange POTENTIAL DISCHARGE NEEDS:: Follow up appointments PATIENT/FAMILY EDUCATION NEEDS:: Review discharge instructions, limitations, medications and plan to follow up with community providers. ask me three. ANTICIPATED BARRIERS TO DISCHARGE:: Via private vehicle with friend Barbara. TRANSPORTATION:: Anticipate, Benita will discharge home with no new [facility] services via private vehicle with friend Delfina. She will follow up with her community providers as scheduled and discharge plan of care as prescribed. Benita's preferred pharmacy is [facility] in [place], if New RX's are needed.
[2022-04-16] MEDS: Lidocaine 5% Patch 1 PATCH TP (15:34)
[2022-04-16] MEDS: metroNIDAZOLE 500 MG TAB PO ×2 (15:35→21:50)
[2022-04-16] MEDS: Normal Saline 1,000 ML 100 ML IV (16:07)
--- NOTE | 2022-04-16 17:05 | NUR.NOTE ---
Nursing Note: This RN has reviewed the admission assessment performed by Lona Watt LPN and agrees with the admission assessment documentation.
[2022-04-16] MEDS: traMADol 50 MG TAB PO (20:25)
[2022-04-16] MEDS: LORazepam 1 MG TAB PO (20:26)
[2022-04-16] MEDS: Prazosin 1 MG CAP 2 MG PO (21:49)
[2022-04-16] MEDS: traZODone 100 MG TAB 200 MG PO (21:49)
[2022-04-16] MEDS: Haloperidol 1 MG TAB 2 MG PO (21:49)
[2022-04-16] MEDS: Lidocaine Patch Removal 1 EACH TP (21:50)
[2022-04-17 02:12] VITALS: BP 128/76; PULSE 79; RESP 18; TEMP 36.7; O2SAT 95
[2022-04-17] MEDS: metroNIDAZOLE 500 MG TAB PO ×2 (04:05→09:55)
[2022-04-17 04:34] VITALS: O2SAT 95
[2022-04-17 05:55] VITALS: BP 126/83; PULSE 77; RESP 22; TEMP 36.8; O2SAT 93
[2022-04-17 07:21] VITALS: BP 101/60; PULSE 65; RESP 22; TEMP 36.9; O2SAT 95
[2022-04-17] MEDS: LORazepam 1 MG TAB PO (07:37)
[2022-04-17] MEDS: Sertraline 100 MG TAB PO (07:37)
[2022-04-17] MEDS: Normal Saline Flush 10 ML SYR IVP (07:37)
[2022-04-17] MEDS: Lidocaine 5% Patch 1 PATCH TP (07:37)
[2022-04-17] MEDS: Magnesium Chloride 64 MG TABCR 128 MG PO (07:37)
[2022-04-17] MEDS: Cetirizine 10 MG TAB PO (07:37)
[2022-04-17] MEDS: Lansoprazole 30 MG CAPCR PO (07:38)
[2022-04-17] MEDS: Lurasidone 40 MG TAB 160 MG PO (07:38)
[2022-04-17] MEDS: buPROPion-XL 150 MG TABCR 300 MG PO (07:38)
[2022-04-17] MEDS: lamoTRIgine 100 MG TAB 200 MG PO (07:38)
[2022-04-17] MEDS: Multivitamin TAB 1 TAB PO (07:39)
[2022-04-17 08:41] VITALS: O2SAT 95
[2022-04-17] MEDS: levoFLOXacin 500 MG, levoFLOXacin 250 MG 750 MG PO (09:55)
--- NOTE | 2022-04-17 11:49 | DSE_ITS ---
Date of service: 04/17/22 Time of Service: 11:49 DS: Diagnosis Discharge Diagnosis (1) Diverticulitis of sigmoid colon: Status: Acute (2) Hypoxia: Status: Acute (3) Bipolar I disorder: Status: Chronic (4) Discharge planning issues: Status: Acute Discharge Plan Disposition Patient Disposition: HOME Condition: Stable Discharge Details Reason For Visit: Diverticulitis Admit Date/Time: 04/16/22 09:48 Admit Provider: Armond Jose Attending Provider: Armond Jose Primary Care Provider: [facility] Hospital Course: This is a 67-year-old female with a past medical history of diabetes mellitus, bipolar disorder, hypertension, high cholesterol, and previous diverticulitis episode a month and a half ago requiring admission and IV antibiotics with an associated phlegmon, who presented 04/16/2022 to the [facility] emergency department for evaluation of abdominal pain.? Patient stated for a week or so she had increasing generalized abdominal pain. She complaints of associated diarrhea which is non-bloody.? She denied vomiting but does admit to nausea.? Pain is worse with movement.? She has been having a decreased oral intake secondary to this. She denied any chest pain or shortness of breath.? She denied any numbness or tingling.? No other complaints.? No other modifying factors.? Past surgical history is positive for cholecystectomy.?She was admitted for observation and IV antibiotics. 04/17/2022 she was feeling much better and was able to take oral nurishment. She was discharged to home with family, and instructed to take antibiotics and othermedications as prescribed. She was educated regarding diet. She is to follow up with surgery and PCP. Discussed with Dr Jose. Home Meds and New Rx's Prescriptions: New levofloxacin 750 mg tablet 750 mg PO Q24H Qty: 10 0RF metronidazole 500 mg tablet 500 mg PO TID Qty: 28 0RF Continued Slow-Mag 71.5 MG tablet,delayed release (DR/EC) 2 tab PO DAILY Qty: 60 lansoprazole 30 mg capsule,delayed release(DR/EC) 30 mg PO DAILY Qty: 90 3RF cetirizine 10 mg tablet 10 mg PO DAILY Qty: 90 3RF atorvastatin 20 mg tablet 20 mg PO DAILY Qty: 90 3RF Rx Instructions: take one tablet daily lpylamenzs-sijgnumfqeqzl-iizu 50-300-40 mg capsule 1 cap PO DAILY PRN (Reason: headache) Qty: 4 0RF lorazepam 1 MG tablet 1 tab PO BID PRN PRN Label Comments: Now TID 04/21/16 vp organizational development haloperidol 2 MG tablet 2 mg PO HS gckxbxudabmf-ymsc-wguvo acid 18-400 mg-mcg Tablet 1 tab PO DAILY lamotrigine 200 mg tablet 200 mg PO HS Label Comments: TAKE ONE TABLET BY MOUTH EVERY DAY. STOP MED IF RASH OCCURS Latuda 20 mg tablet 40 mg PO DAILY Label Comments: TAKE TWO TABLETS BY MOUTH EVERY MORNING WITH A MEAL FOR TOTAL 160MG/DAY Rx Instructions: TAKE WITH 120 MG TAB FOR TOTAL 160 MG DAILY Latuda 120 mg tablet 120 mg PO DAILY Label Comments: TAKE ONE TABLET BY MOUTH EVERY DAY WITH MEALS WITH TWO 20MG TABLETS FOR TOTAL 160MG/DAY Rx Instructions: TAKE WITH FOOD, TAKE WITH TWO 20 MG TABS FOR TOTAL OF 160 MG DAILY sertraline 100 mg tablet 100 mg PO DAILY Label Comments: TAKE ONE TABLET BY MOUTH EVERY DAY bupropion HCl 300 mg tablet extended release 24 hr 300 mg PO DAILY Label Comments: TAKE ONE TABLET BY MOUTH EVERY DAY prazosin 1 mg Capsule 2 mg PO HS Qty: 60 1RF trazodone 100 mg Tablet 200 mg PO HS Qty: 60 1RF Discharge Instructions Instructions: Metronidazole (By mouth), Levofloxacin (By mouth), Diverticulitis (DC) Additional Instructions: After an episode of diverticulitis resolves, if you have not had a recent colonoscopy, the entire length of the colon should be evaluated to determine the extent of disease and to rule out the presence of abnormal lesions such as polyps or cancer. It's a good idea to eat a lot of fiber?after?your symptoms have gotten better. Good sources of fiber include fruits, oats, beans, peas, and green leafy vegetables. You do?not?need to avoid seeds, nuts, popcorn, or other similar foods.? Take acetaminophen as needed for pain (not to exceed 3000 mg in 24 hours); return to emergency department if increased pain, fever, vomiting, bloody stools or bleeding from the rectum. Stand Alone Forms: Nursing Discharge Form Referrals: Cathie Strange NP [Primary Care Provider] - (Call Tuesday to make appointment for follow up in 1-2 weeks) Mercy Rivera MD [ [facility] STAFF PHYSICIAN] - (Call Tuesday to be seen at the office for post hospitalization with diverticulitis. ) Activity:: Activity as Tolerated Equipment/Supplies:: No Equipment Needed Diet:: High fiber after symptoms resolve Discharge Orders Discharge Orders: Discharge Order (Routine); Ordered 04/17/22 Ordered By: Kimberley Forde Discharge Data Discharge Date/Time-TO BE ENTERED AT DEPARTURE: 04/17/22 13:12 DS: Summary Time Spent with Patient providing and/or coordinating discharge services: Less than 30 minutes Status at Discharge Functional status at discharge: independent ambulation Overall status at discharge: patient is progressing back to baseline Mental Status: mental status grossly normal Speech and Movement: speech and movement normal Mood: congruent mood Affect: normal affect Exam Const General: cooperative, healthy appearing and comfortable Nutritional Appearance: average body habitus Orientation: alert, awake and oriented x3 HENMT Head: normal to inspection, normocephalic and atraumatic Mouth: oral mucosae normal Resp Effort & Inspection: normal respiratory effort Cardio Rate: regular rate Rhythm: regular rhythm GI Inspection: normal to inspection Palpation: soft, no guarding and no masses Auscultation: normal bowel sounds Skin Rashes: no rashes Neuro General: patient alert, patient awake, patient oriented x3 and no focal motor deficits Extrem General: normal to inspection, full ROM and no pedal edema Psych Mental Status: mental status grossly normal Speech and Movement: speech and movement normal Mood: congruent mood Affect: normal affect DS: Data Vitals/I&O Vitals and I&O: Vital Signs Temperature 36.9 C 04/17/22 07:21 Temperature Source Tympanic 04/17/22 07:21 Pulse 65 04/17/22 07:21 Pulse Rhythm Regular 04/17/22 07:45 Pulse 71 04/16/22 10:10 Respiratory Rate 22 04/17/22 07:21 Respiratory Effort Non-Labored 04/17/22 07:45 Respiratory Depth Normal 04/17/22 07:45 Respiratory Pattern Normal 04/17/22 07:45 Blood Pressure 101/60 04/17/22 07:21 Blood Pressure Mean 87 04/16/22 10:01 Blood Pressure Position Supine 04/16/22 05:31 Pulse Oximetry 95 04/17/22 08:41 Oxygen Delivery Method Nasal Cannula 04/17/22 08:41 Oxygen Flow Rate 1 04/17/22 08:41 Pain Level 9 04/17/22 05:55 Comment 04/16/22 22:45 Intake & Output 04/16/22 04/16/22 04/17/22 11:59 23:59 11:59 Intake Total 1250 / 3507.667 2257.667 / 3507.667 743.333 / 743.333 Output Total 200 / 1050 850 / 1050 1500 / 1500 Balance 1050 / 2457.667 1407.667 / 2457.667 -756.667 / -756.667 Weight 81.647 kg Intake: IV 1250 / 1557.667 307.667 / 1557.667 743.333 / 743.333 Oral 1949 / 1949 Output: Urine 200 / 1050 850 / 1050 1500 / 1500 Other: Urine Color Straw Yellow Pale Yellow Urine Appearance Clear Cloudy Clear Urine Odor Normal Normal Normal Voiding Methods Toilet Bedside Commode Toilet PFS All Active Problems (Updated 04/16/22 @ 15:55 by Joanie Salas NP) Bipolar I disorder (Chronic) Discharge planning issues (Acute) Diverticulitis of sigmoid colon (Acute) Hypoxia (Acute) Postmenopausal bleeding (Acute 04/10/12) Diabetes mellitus (Chronic 11/04/11) Benign neoplasm of kidney (Acute) Transient blindness (Acute) Proctocele (Acute 05/26/15) Multiple cranial nerve palsy (Acute) Complete uterine prolapse (Acute 05/26/15) Migraine (Chronic) Diverticulitis large intestine (Acute) Tooth ache (Acute) Viral syndrome (Acute) Allergic rhinitis (Acute 05/05/15) Kidney stone (Acute) lithotripsy 2009 (right) Medical History Cramer's esophagus Benign neoplasm of kidney Bipolar I disorder Bipolar I disorder Diabetes mellitus Essential hypertension Essential hypertension (06/28/13) no rx (2014) Gastroesophageal reflux disease with esophagitis gastroscopy February 2013: oesophagitis () no response to Ranitidine, Pantoprazole/ on Nexium x age 31 Glaucoma Hyperlipidemia Hyperlipidemia (03/27/13) Hypothyroidism Postmenopausal bleeding uterine fibroids Surgical History History of bilateral ligation of fallopian tubes History of esophagogastroduodenoscopy History of surgical procedure (10/03/14) History of total vaginal hysterectomy (TVH) (07/03/15) Ligation of fallopian tube Status post cystoscopy (07/03/15) Status post foot surgery Vaginal hysterectomy (07/03/15) UTEROSACRAL SUSPENSION; CYSTOSCOPY, RECTOCELE REPAIR Family History Mother Essential hypertension Personal history of malignant neoplasm LUNG Stroke Father Essential hypertension Heart disease Hyperlipidemia Sister No problems noted. Sister No problems noted. Brother Heart disease DOUBLE BYPASS AGE 48 (NON SMOKER) Hyperlipidemia Grandfather Personal history of malignant neoplasm LUNG Grandfather No problems noted. Grandmother Heart disease Myocardial infarction Grandmother Diabetes Son No problems noted. Son Depression Daughter Depression Social History Smoking/Tobacco Use Status: Former Tobacco Use Smoking risk assessment performed?: Yes Alcohol Intake: never Drug use: Never Substance use type: does not use Do you feel safe at home: Yes Do you feel safe in your relationship?: Yes
[2022-04-17] MEDS: Mylanta Suspension 30 ML CUP PO (11:54)
--- NOTE | 2022-04-17 14:24 | CMDISCH_ITS ---
- If Service Date Differs Date of service: 04/17/22 Time of Service: 14:24 LACE Index Scoring Tool - Questions: Length of Stay (in days): 1 Acuity (Admit via E.D.?): Yes Comorbidities: Diabetes w/o Complication E.D. Visits: 2 - Answers: Total Score: 7 Risk of Readmission: Low Risk Care Management Discharge Reason for Hospitalization: Diverticulitis Discharge Plan: Benita will discharge home with no new [facility] services via private vehicle with friend Delfina. She will follow up with her community providers as scheduled and discharge plan of care as prescribed. Patient/Family Education Needs: Review discharge instructions, discuss Ask Me Three.
== END 2022-04-17 13:12 | disposition home or self-care (01) | DRG 392 ==
LOC: ER 10:16 → MS 10:38
PROVIDERS: Student in an Organized Health Care Education/Training Program; Admitting Provider Family Medicine; Emergency Provider Student in an Organized Health Care Education/Training Program; PCP Nurse Practitioner Family; Visit Provider Family Medicine
DX: K57.32 Diverticulitis of large intestine without perforation or abscess without bleeding (principal); R09.02 Hypoxemia; F31.9 Bipolar disorder, unspecified; E11.9 Type 2 diabetes mellitus without complications; E78.00 Pure hypercholesterolemia, unspecified; G43.909 Migraine, unspecified, not intractable, without status migrainosus; J30.9 Allergic rhinitis, unspecified; Z87.442 Personal history of urinary calculi; E78.5 Hyperlipidemia, unspecified; E03.9 Hypothyroidism, unspecified; K21.00 Gastro-esophageal reflux disease with esophagitis, without bleeding; Z79.899 Other long term (current) drug therapy
CPT/HCPCS: 36415; 71250; 80053; 87635; 96361; 96365; 96367; 99285; 74176; 81003; 85025; 85379; 99223; 99238; J1885; J1956; J3490

== ENCOUNTER 2022-07-13 08:48 | Emergency (ER) | payer MEDICARE, MEDICAID, SELFPAY ==
[2022-07-13] VITALS (13 sets, daily range): BP systolic 132–143; BP diastolic 76–92; PULSE 88–101; RESP 20; TEMP 36.6; O2SAT 90–93
[2022-07-13] MEDS: Lactated Ringers 500 ML IV (09:00)
[2022-07-13] MEDS: Normal Saline Flush 10 ML SYR IVP (09:12)
--- NOTE | 2022-07-13 09:15 | DI.RAD_ITS ---
Exam(s) XR CHEST 2V PA LATERAL EXAM: XR CHEST 2V PA LATERAL CLINICAL HISTORY: hypoxia TECHNIQUE: 2D digital imaging was performed of the chest. Two images were obtained. PA and lateral views were obtained. COMPARISON: CR RIGHT RIBS TO INCLUDE CXR from 09/10/2014 FINDINGS: MEDIASTINUM: Normal. HEART: Normal. PULMONARY VASCULATURE: Normal. LUNGS: Clear. PLEURAL SPACE: No pleural effusion or pneumothorax. BONE:Within normal limits for the patient's age. OTHER FINDINGS:Normal. IMPRESSION: No acute pulmonary findings. DATA REPOSITORY: RADIATION DOSE DELIVERED:
[2022-07-13 09:20] LABS: Abs Immature Grans 0.09 10^3/uL (0.0-0.06); Absolute Basophil Count 0.07 10^3/uL (0.0-0.2); Absolute Lymphocyte Count 2.21 10^3/uL (1.2-3.4); Absolute Monocyte Count 0.91 10^3/uL (0.1-0.8); Basophils % 0.6; Eosinophils % 1.8; HGB 15.9 g/dL (11.2-15.7); Immature Grans % 0.8; Lymphocytes % 18.5; MCH 31.9 pg (27.0-33.0); MCHC 33.8 % (32.0-36.0); MCV 94 fL (80-95); MPV 10.2 fL (8.0-11.0); Monocytes % 7.6; Neutrophils % 70.7; Platelet Count 208 10^3/uL (130-400); RBC 4.98 10^6/uL (3.93-5.22); RDW 12.5 % (11.7-14.6); RDW-SD 43.1 fL; WBC 11.97 10^3/uL (4.4-10.8)
[2022-07-13 09:21] LABS: Absolute Eosinophil Count 0.22 10^3/uL (0.0-0.7); Absolute Neutrophil Count 8.46 10^3/uL (1.2-6.7)
[2022-07-13 09:36] LABS: ALT 22 U/L (14-59); AST 24 U/L (15-37); Albumin 4.3 g/dL (3.4-5.0); Alkaline Phosphatase 84 U/L (46-116); Anion Gap 13.1 mmol/L (3-11); BUN 15 mg/dL (7-18); Bilirubin, Total 0.4 mg/dL (0.2-1.0); CO2 25.9 mmol/L (21.0-32.0); CREATININE 1.1 mg/dL (0.55-1.02); Calcium 10.2 mg/dL (8.5-10.1); Chloride 98 mmol/L (98-107); Estimated GFR 55.76 (mL/min/1.73m2); Glucose 131 mg/dL (74-106); Lipase 91 U/L (73-393); Sodium 137 mmol/L (136-145); Total Protein 8.6 g/dL (6.4-8.2)
--- NOTE | 2022-07-13 09:49 | W.ED.GENAD ---
Discharge Plan Disposition Patient Disposition: HOME Condition: Stable Discharge Details Clinical Impression: Acute diverticulitis, Hypoxia Primary Care Provider: Cathie Strange ED Provider: Vlad Samaniego Home Meds and New Rx's Prescriptions: Continued ciprofloxacin HCl [Cipro] 500 mg tablet 500 mg PO Q12H Qty: 14 0RF metronidazole 500 mg tablet 500 mg PO TID Qty: 21 0RF Slow-Mag 71.5 MG tablet,delayed release (DR/EC) 2 tab PO DAILY Qty: 60 lansoprazole 30 mg capsule,delayed release(DR/EC) 30 mg PO DAILY Qty: 90 3RF cetirizine 10 mg tablet 10 mg PO DAILY Qty: 90 3RF ifqnirobls-ckmdgolmkgmua-cnju 50-300-40 mg capsule 1 cap PO DAILY PRN (Reason: headache) Qty: 4 0RF lorazepam 1 MG tablet 1 tab PO BID PRN PRN Label Comments: Now TID 04/21/ [employer] haloperidol 2 MG tablet 2 mg PO HS PRN qapbzlhhbuzm-qxxp-yxgur acid 18-400 mg-mcg Tablet 1 tab PO DAILY lamotrigine 200 mg tablet 200 mg PO HS Label Comments: TAKE ONE TABLET BY MOUTH EVERY DAY. STOP MED IF RASH OCCURS Latuda 120 mg tablet 120 mg PO DAILY Label Comments: TAKE ONE TABLET BY MOUTH EVERY DAY WITH MEALS WITH TWO 20MG TABLETS FOR TOTAL 160MG/DAY Rx Instructions: TAKE WITH FOOD sertraline 100 mg tablet 150 mg PO DAILY Label Comments: TAKE ONE TABLET BY MOUTH EVERY DAY bupropion HCl 300 mg tablet extended release 24 hr 300 mg PO DAILY Label Comments: TAKE ONE TABLET BY MOUTH EVERY DAY Discharge Instructions Instructions: Diverticulitis (ED) Additional Instructions: Please continue antibiotic as prescribed. Please follow-up with your primary care physician. Be sure to discuss findings of your CT. It is recommended that you have additional diagnostic testing including colonoscopy if he has not had one recently. Please be sure to discuss your low oxygenation level with your primary care physician. Return to the ER immediately for any worsening or new concerning symptoms. Referrals: Cathie Strange, KANDI [Primary Care Provider] - Medical Decision Making [phone] --67-year-old female with history of diverticulosis and previous flare of diverticulitis, here with 1 to 2 weeks of abdominal pain, worse last night. She is on ciprofloxacin and metronidazole that was started yesterday. Patient is tender in her left upper abdomen. Patient mildly tachycardic. I will give IV fluid bolus. Patient is hypoxic in the upper 80s to low 90s on room air in no respiratory distress with clear lungs. She was hypoxic on most recent prior hospitalization and had negative CT of the chest. She is a former smoker. Labs reviewed and leukocytosis noted. Plan to get CT of the abdomen pelvis to assess for acute surgical problems including perforated viscus versus diverticular abscess. I suspect her hypoxia is secondary to smoking history and likely undiagnosed COPD given prior negative CT, no chest pain or shortness of breath. I will obtain chest x-ray to evaluate for any progression of pulmonary disease. 1038 --CT the abdomen pelvis was interpreted by radiology: Sigmoid diverticulitis. Plan to continue Cipro and metronidazole and have her follow-up with primary care. Radiologist does suggest need for colonoscopy and consideration for additional diagnostic testing given recurrence. Medical Records Medical records reviewed: Yes I reviewed the patient's medical records. Medical records narrative: CT of the chest abdomen pelvis 04/16/2022: IMPRESSION: Sigmoid diverticulitis, similar location to prior.? No abscess.? No acute abnormality in the chest. Lab Data Lab results reviewed: Yes I reviewed the patient's lab results. Labs: Laboratory Tests Range/Units 07/13/22 07/13/22 09:00 09:00 WBC (4.4-10.8) 10^3/uL 11.97 H RBC (3.93-5.22) 10^6/uL 4.98 Hgb (11.2-15.7) g/dL 15.9 H Hct (36.0-46.0) % 47.0 H MCV (80-95) fL 94 MCH (27.0-33.0) pg 31.9 MCHC (32.0-36.0) % 33.8 RDW (11.7-14.6) % 12.5 Plt Count (130-400) 10^3/uL 208 MPV (8.0-11.0) fL 10.2 Immature Gran % 0.8 Neutrophils % 70.7 Lymphocytes % 18.5 Monocytes % 7.6 Eosinophils % 1.8 Basophils % 0.6 Nucleated RBC % (0.0-0.3) % 0.0 Absolute Neutrophils (1.2-6.7) 10^3/uL 8.46 H Absolute Lymphocytes (1.2-3.4) 10^3/uL 2.21 Absolute Monocytes (0.1-0.8) 10^3/uL 0.91 H Absolute Eosinophils (0.0-0.7) 10^3/uL 0.22 Absolute Basophils (0.0-0.2) 10^3/uL 0.07 Sodium (136-145) mmol/L 137 Potassium (3.5-5.1) mmol/L 4.0 Chloride (98-107) mmol/L 98 Carbon Dioxide (21.0-32.0) mmol/L 25.9 Anion Gap (3-11) mmol/L 13.1 H BUN (7-18) mg/dL 15 Creatinine (0.55-1.02) mg/dL 1.1 H Est GFR (CKD-EPI 2020) (mL/min/1.73m2) 55.76 Glucose (74-106) mg/dL 131 H Calcium (8.5-10.1) mg/dL 10.2 H Total Bilirubin (0.2-1.0) mg/dL 0.4 AST (15-37) U/L 24 ALT (14-59) U/L 22 Alkaline Phosphatase (46-116) U/L 84 Total Protein (6.4-8.2) g/dL 8.6 H Albumin (3.4-5.0) g/dL 4.3 Lipase (73-393) U/L 91 HPI General Mode of arrival: ambulatory. Date/Time Provider Initiated Documentation: 07/13/22 08:56. Limitations to Documentation: no limitations. Information obtained by: patient. HPI Narrative: 67-year-old female with history of diverticulosis, here with chief complaint of abdominal pain. Patient notes diffuse abdominal pain that started about 1 week ago and has worsened. She was seen at [facility] yesterday and started on ciprofloxacin and Flagyl. She notes pain was severe last night. Pain currently moderate to severe. She has associated nausea and vomiting. No associated diarrhea. Related Data Home Medications Medication Instructions Recorded Confirmed lorazepam 1 mg tablet 1 tab PO BID PRN PRN 04/06/14 07/13/22 magnesium chloride 71.5 mg 2 tab PO DAILY #60 tab-caps 04/11/14 07/13/22 (magnesium chloride) tablet,delayed release (Slow-Mag) haloperidol 2 mg tablet 2 mg PO HS PRN 04/29/15 07/13/22 lansoprazole 30 mg capsule,delayed 30 mg PO DAILY Cramer's 12/11/21 07/13/22 release oesophagus/GERD #90 caps cetirizine 10 mg tablet 10 mg PO DAILY #90 tabs 01/01/22 07/13/22 bupropion HCl 300 mg 24 hr tablet, 300 mg PO DAILY 02/10/22 07/13/22 extended release lamotrigine 200 mg tablet 200 mg PO HS 02/10/22 07/13/22 lurasidone 120 mg tablet (Latuda) 120 mg PO DAILY 02/10/22 07/13/22 multivitamin-ferrous 1 tab PO DAILY 02/10/22 07/13/22 fumarate-folic acid 18 mg-400 mcg tablet sertraline 100 mg tablet 150 mg PO DAILY 02/10/22 07/13/22 rhsmbxhkil-syyeebtuhkuxf-prusllsv 1 cap PO DAILY PRN headache #4 caps 04/05/22 07/13/22 50 mg-300 mg-40 mg capsule ciprofloxacin HCl 500 mg tablet 500 mg PO Q12H #14 tabs 07/12/22 07/13/22 (Cipro) metronidazole 500 mg tablet 500 mg PO TID #21 tabs 07/12/22 07/13/22 Previous Rx's Medication Instructions Recorded lansoprazole 30 mg capsule,delayed 30 mg PO DAILY Cramer's 12/11/21 release oesophagus/GERD #90 caps cetirizine 10 mg tablet 10 mg PO DAILY #90 tabs 01/01/22 cofsxtcvzq-naaztmfmztopw-dedtcujf 1 cap PO DAILY PRN headache #4 caps 04/05/22 50 mg-300 mg-40 mg capsule ciprofloxacin HCl 500 mg tablet 500 mg PO Q12H #14 tabs 07/12/22 (Cipro) metronidazole 500 mg tablet 500 mg PO TID #21 tabs 07/12/22 Allergies Allergy/AdvReac Type Severity Reaction Status Date / Time Penicillins Allergy Swelling/Ed Verified 07/13/22 08:56 dilia latex AdvReac Severe Skin Rash Verified 07/13/22 08:56 azithromycin [From Zithromax] AdvReac headache, Verified 07/13/22 08:56 hearing loss,double vision, DAVILA ciprofloxacin [From Cipro] AdvReac Dizziness/L Verified 07/13/22 08:56 ightheade codeine AdvReac GI upset Verified 07/13/22 08:56 Sulfa (Sulfonamide AdvReac anxious Verified 07/13/22 08:56 Antibiotics) General Stated Complaint: Abd Prob MARIAM: 3 Review of Systems All systems reviewed & are unremarkable except as noted in HPI and below Constitutional Constitutional: Denies fever(s) Gastrointestinal Gastrointestinal: Reports abdominal pain PFSH All Active Problems (Updated 07/13/22 @ 10:40 by Vlad Samaniego MD) Acute diverticulitis (Acute) Hypoxia (Acute) Sinusitis (Acute) Bipolar I disorder (Chronic) Diverticulitis of sigmoid colon (Acute) Postmenopausal bleeding (Acute 04/10/12) Diabetes mellitus (Chronic 11/04/11) Benign neoplasm of kidney (Acute) Transient blindness (Acute) Proctocele (Acute 05/26/15) Multiple cranial nerve palsy (Acute) Complete uterine prolapse (Acute 05/26/15) Migraine (Chronic) Diverticulitis large intestine (Acute) Tooth ache (Acute) Viral syndrome (Acute) Allergic rhinitis (Acute 05/05/15) Kidney stone (Acute) lithotripsy 2009 (right) Medical History Cramer's esophagus Benign neoplasm of kidney Bipolar I disorder Diabetes mellitus Essential hypertension Essential hypertension (06/28/13) no rx (2014) Gastroesophageal reflux disease with esophagitis gastroscopy February 2013: oesophagitis () no response to Ranitidine, Pantoprazole/ on Nexium x age 31 Glaucoma Hyperlipidemia Hyperlipidemia (03/27/13) Hypothyroidism Hypoxia Postmenopausal bleeding uterine fibroids Surgical History History of bilateral ligation of fallopian tubes History of esophagogastroduodenoscopy History of surgical procedure (10/03/14) History of total vaginal hysterectomy (TVH) (07/03/15) Ligation of fallopian tube Status post cystoscopy (07/03/15) Status post foot surgery Vaginal hysterectomy (07/03/15) UTEROSACRAL SUSPENSION; CYSTOSCOPY, RECTOCELE REPAIR Family History Mother Essential hypertension Personal history of malignant neoplasm LUNG Stroke Father Essential hypertension Heart disease Hyperlipidemia Sister No problems noted. Sister No problems noted. Brother Heart disease DOUBLE BYPASS AGE 48 (NON SMOKER) Hyperlipidemia Grandfather Personal history of malignant neoplasm LUNG Grandfather No problems noted. Grandmother Heart disease Myocardial infarction Grandmother Diabetes Son No problems noted. Son Depression Daughter Depression Social History Smoking/Tobacco Use Status: Former Tobacco Use Smoking risk assessment performed?: Yes Alcohol Intake: never Drug use: Never Substance use type: does not use Do you feel safe at home: Yes Do you feel safe in your relationship?: Yes Exam Const General: cooperative and no acute distress HENMT Mouth: moist mucous membranes Eyes Conjunctivae: normal conjunctivae Sclera: normal sclerae Resp Effort & Inspection: normal respiratory effort Auscultation: clear to auscultation bilaterally, no rales, no rhonchi and no wheezes Cardio Rate: tachycardic Rhythm: regular rhythm GI Palpation: soft, not firm, no guarding, no masses, not rigid and nontender Skin General skin exam: no rashes or lesions noted Neuro General: patient alert, patient awake, patient oriented x3 and tone normal Extrem General: no calf tenderness and no edema Psych Appearance: grossly normal Mental Status: mental status grossly normal Speech and Movement: speech and movement normal Course Vital Signs Vital signs: Vital Signs Temperature 36.6 C 07/13/22 08:52 Pulse 101 H 07/13/22 08:52 Respiratory Rate 20 07/13/22 08:52 Blood Pressure 139/92 H 07/13/22 08:52 Pulse Oximetry 92 07/13/22 08:52 Temperature 36.6 C 07/13/22 08:52 Temperature Source Skin 07/13/22 08:52 Pulse 99 H 07/13/22 09:15 Respiratory Rate 20 07/13/22 08:52 Respiratory Effort Non-Labored 07/13/22 08:54 Blood Pressure 132/91 H 07/13/22 09:15 Blood Pressure Position Sitting 07/13/22 08:52 Pulse Oximetry 90 L 07/13/22 09:15 Oxygen Delivery Method Room Air 07/13/22 09:15 Oxygen Flow Rate 0 07/13/22 09:15 Pain Level 7 07/13/22 08:52 Lab/Test Results Lab/Test Results: Laboratory Tests Range/Units 07/13/22 07/13/22 09:00 09:00 WBC (4.4-10.8) 10^3/uL 11.97 H RBC (3.93-5.22) 10^6/uL 4.98 Hgb (11.2-15.7) g/dL 15.9 H Hct (36.0-46.0) % 47.0 H MCV (80-95) fL 94 MCH (27.0-33.0) pg 31.9 MCHC (32.0-36.0) % 33.8 RDW (11.7-14.6) % 12.5 Plt Count (130-400) 10^3/uL 208 MPV (8.0-11.0) fL 10.2 Immature Gran % 0.8 Neutrophils % 70.7 Lymphocytes % 18.5 Monocytes % 7.6 Eosinophils % 1.8 Basophils % 0.6 Nucleated RBC % (0.0-0.3) % 0.0 Absolute Neutrophils (1.2-6.7) 10^3/uL 8.46 H Absolute Lymphocytes (1.2-3.4) 10^3/uL 2.21 Absolute Monocytes (0.1-0.8) 10^3/uL 0.91 H Absolute Eosinophils (0.0-0.7) 10^3/uL 0.22 Absolute Basophils (0.0-0.2) 10^3/uL 0.07 Sodium (136-145) mmol/L 137 Potassium (3.5-5.1) mmol/L 4.0 Chloride (98-107) mmol/L 98 Carbon Dioxide (21.0-32.0) mmol/L 25.9 Anion Gap (3-11) mmol/L 13.1 H BUN (7-18) mg/dL 15 Creatinine (0.55-1.02) mg/dL 1.1 H Est GFR (CKD-EPI 2020) (mL/min/1.73m2) 55.76 Glucose (74-106) mg/dL 131 H Calcium (8.5-10.1) mg/dL 10.2 H Total Bilirubin (0.2-1.0) mg/dL 0.4 AST (15-37) U/L 24 ALT (14-59) U/L 22 Alkaline Phosphatase (46-116) U/L 84 Total Protein (6.4-8.2) g/dL 8.6 H Albumin (3.4-5.0) g/dL 4.3 Lipase (73-393) U/L 91
[2022-07-13] MEDS: Omnipaque 350 MG/ML 500 ML BTL-Imaging package IJ (10:11)
--- NOTE | 2022-07-13 10:15 | DI.CT_ITS ---
Exam(s) CT ABDOMEN PELVIS W EXAM: CT ABDOMEN PELVIS W CLINICAL HISTORY: h/o diverticulitis, worsening pain 1 week, ttp LUQ TECHNIQUE: Imaging Protocol: Axial computed tomography images with coronal and sagittal reformatted images were created and reviewed CONTRAST MATERIAL: Intravenous: Omnipaque 350 Contrast volume:100 mL Oral: No COMPARISON: CT CT ABDOMEN PELVIS WO from 02/10/[address] CHEST/ABD/PEL WO from 04/16/2022 FINDINGS: ABDOMEN: Lung Bases: There is a small hiatal hernia. There is unchanged scarring in the right lower lobe. Liver: Normal density. No measurable mass. Portal, Superior Mesenteric, and Splenic Veins: Unremarkable. Gallbladder and Biliary Tract: Status post cholecystectomy. Stable dilatation of the extrahepatic bi le duct. Pancreas: Normal density, no abnormal calcifications or inflammatory process. Spleen: Normal. Adrenals: No masses seen. Kidneys: Normal size, contour and axis. No radiodense stones or obstructive uropathy. Stable fat dens ity mass in the left kidney. Finding is consistent with an angiomyolipoma or other benign renal lesi on. Abdominal Aorta: Abdominal portion non-dilated. Atherosclerosis is present. Bowel: There is diverticulosis seen in the transverse, descending and sigmoid colon. There is thicke porter of the wall of a loop of mid sigmoid colon with pericolonic inflammatory changes raising the que stion of acute diverticulitis. No abscess or free air is identified. There is no evidence of bowel obstruction. No evidence of appendicitis. Peritoneal Cavity: No ascites, collection or mesenteric inflammatory response. No free air. Lymph Nodes: Within normal limits. Bones: Within normal limits for the patient's age. Soft Tissues: Unremarkable. PELVIS: Bladder: Symmetric distention, no gross wall thickening. Reproductive Organs: Status post hysterectomy. Lymph Nodes: Within normal limits. Bones: Within normal limits for the patient's age. IMPRESSION: 1. Findings suggestive of acute sigmoid diverticulitis. No abscess or free air. Following treatment , evaluation with colonoscopy or barium enema should be considered to exclude underlying mass/abnorma lity. 2. No other acute abdominal pelvic process. 3. Findings were discussed with Dr. Samaniego at 10:33 a.m. on 07/13/2022. RADIATION DOSE DELIVERED: 828mGy.cm Total DLP DATA REPOSITORY: All CT scans at this facility are submitted to the National Radiology Data Registry (NRDR) Dose Index Registry (DIR) with the [employer] (ACR). RADIATION OPTIMIZATION: All CT scans at this facility use at least one of these dose optimization te chniques: automated exposure control; mA and/or kV adjustment per patient size (includes targeted exa ms where dose is matched to clinical indication); or iterative reconstruction.
--- NOTE | 2022-07-13 10:43 | NUR.NOTE ---
Nursing Note: need pcp follow up.pcp needs to schedule future colonoscopy
== END 2022-07-13 10:52 | disposition home or self-care (01) ==
PROVIDERS: Emergency Provider Student in an Organized Health Care Education/Training Program; PCP Nurse Practitioner Family
DX: K57.92 Diverticulitis of intestine, part unspecified, without perforation or abscess without bleeding (principal); R09.02 Hypoxemia; D72.829 Elevated white blood cell count, unspecified; E11.9 Type 2 diabetes mellitus without complications; I10 Essential (primary) hypertension; Z87.891 Personal history of nicotine dependence
CPT/HCPCS: 36415; 80053; 83690; 96360; 99285; 71046; 74177; 85025; 99284

== ENCOUNTER 2022-07-16 22:15 | Outpatient (REF) | payer MEDICARE, SELFPAY | END 2022-07-16 22:16 | disposition home or self-care (01) | LOC: LBN 22:15 | PROVIDERS: PCP Nurse Practitioner Family; Visit Provider Nurse Practitioner Family | DX: N39.0 Urinary tract infection, site not specified (principal) | CPT/HCPCS: 87086 ==

== ENCOUNTER 2022-10-21 15:42 | Observation (INO) | payer MEDICARE, MEDICAID, SELFPAY ==
[2022-10-21] VITALS (64 sets, daily range): BP systolic 93–159; BP diastolic 49–120; PULSE 60–86; RESP 13–28; TEMP 36.7; O2SAT 90–96
--- NOTE | 2022-10-21 15:45 | RT.EKG_ITS ---
APPROVED REPORT Exam: Resting ECG Reason for Exam: chest pressure Patient Location: E HR:75 bpm ECG Measurements Heart Rate 75 AXIS GA 155 P 33 QRSd 98 QRS -10 QT 404 T 32 QTc 452 Conclusion Sinus rhythm...normal P axis, V-rate 60- 99 Nonspecific T abnormalities, anterior leads...T <-0.10mV, V2-V4 Narrow complex normal sinus rhythm at a rate of 75. Left axis deviation no signs of LVH based on vol tage criteria. Inferior T wave flattening leads III and aVF. T wave inversions V2 V3. No ST segmen t abnormalities. Intervals within normal limits. No prior for comparison. No acute injury pattern.
[2022-10-21 16:32] LABS: Abs Immature Grans 0.06 10^3/uL (0.0-0.06); Absolute Basophil Count 0.05 10^3/uL (0.0-0.2); Absolute Eosinophil Count 0.26 10^3/uL (0.0-0.7); Absolute Lymphocyte Count 1.95 10^3/uL (1.2-3.4); Absolute Monocyte Count 0.74 10^3/uL (0.1-0.8); Absolute Neutrophil Count 4.01 10^3/uL (1.2-6.7); Basophils % 0.7; Eosinophils % 3.7; HCT 45.8 % (36.0-46.0); HGB 15.3 g/dL (11.2-15.7); Immature Grans % 0.8; Lymphocytes % 27.6; MCH 31.5 pg (27.0-33.0); MCHC 33.4 % (32.0-36.0); MCV 94 fL (80-95); MPV 9.9 fL (8.0-11.0); Monocytes % 10.5; Neutrophils % 56.7; Platelet Count 191 10^3/uL (130-400); RBC 4.85 10^6/uL (3.93-5.22); RDW 12.5 % (11.7-14.6); RDW-SD 43.6 fL; WBC 7.07 10^3/uL (4.4-10.8)
[2022-10-21] MEDS: fentaNYL 100 MCG/2 ML VIAL 50 MCG IVP ×2 (16:47→23:04)
[2022-10-21 16:52] LABS: ALT 26 U/L (14-59); AST 26 U/L (15-37); Albumin 4.3 g/dL (3.4-5.0); Alkaline Phosphatase 62 U/L (46-116); Anion Gap 11.8 mmol/L (3-11); BUN 6 mg/dL (7-18); Bilirubin, Total 0.3 mg/dL (0.2-1.0); CO2 27.2 mmol/L (21.0-32.0); Calcium 9.3 mg/dL (8.5-10.1); Chloride 99 mmol/L (98-107); Estimated GFR 62.52 (mL/min/1.73m2); Glucose 85 mg/dL (74-106); Lipase 33 U/L (16-77); Potassium 3.5 mmol/L (3.5-5.1); Sodium 138 mmol/L (136-145); Total Protein 7.7 g/dL (6.4-8.2); Troponin I < 50 ng/L (<or=60)
[2022-10-21 18:19] LABS: Bilirubin Negative (Negative); Blood Negative (Negative); Clarity Clear (Clear); Glucose Negative (Negative); Ketones 15 mg/dL (Negative); Leukocyte Esterase Negative (Negative); Nitrite Negative (Negative); Urobilinogen 0.2 EU/dL (Up TO 0.2); pH 5.5 (5-8)
--- NOTE | 2022-10-21 18:30 | DI.CT_ITS ---
Exam(s) CT CHEST PE ABD PELVIS W EXAM: CT CHEST PE ABD PELVIS W CLINICAL HISTORY: hypoxia, abdominal pain. TECHNIQUE: Imaging Protocol: Axial CT angiography was performed with multi-slice acquisition and mu lti-planar and/or 3D reconstructions. CONTRAST MATERIAL: Intravenous: Omnipaque 350 Contrast volume:100 ml COMPARISON: CR XR CHEST 2V PA LATERAL from 07/13/[address] ABDOMEN PELVIS W from 07/13/2022 FINDINGS: CHEST: Pulmonary Arteries: No evidence of filling defect to suggest pulmonary emboli. Tracheobronchial tree: Patent where visualized. Mediastinum and Edilia: No dominant adenopathy or fluid collection. Small hiatal hernia. Pulmonary parenchyma: Mildly limited evaluation due to respiratory motion and expiratory changes. No consolidation or dominant measurable mass. Linear atelectasis right lung base. Mild dependent velasco es. Pleura: No effusion or pneumothorax. Heart: The heart is not dilated. No coronary artery calcifications are seen. Aorta: Thoracic aorta non-dilated. Minimal atherosclerotic changes Bones: Normal. Tubes, Catheters, and Lines: None ABDOMEN: Liver: Normal density. No measurable mass. Portal, Superior Mesenteric, and Splenic Veins: Unremarkable. Gallbladder and Biliary Tract: Status post cholecystectomy. No radiodense calculus or dilation. Pancreas: Normal density, no abnormal calcifications or inflammatory process. Spleen: Normal. Adrenals: No masses seen. Kidneys: Normal size, contour and axis. No radiodense stones or obstructive uropathy. Stable fatty de nsity mass in the mid left kidney consistent with an angiomyolipoma. Abdominal Aorta and branch vessels: Abdominal portion non-dilated. Minimal atherosclerotic changes. No significant stenosis of the aorta or branch vessels. No vessel occlusion. Bowel: Partial malrotation of the colon again noted with the cecum projecting in the left upper quadr ant. Some high density material is noted within the colon, presumably ingested material. Small amou nt of colonic fluid. Minimal stool. No small bowel dilatation or wall thickening. Diverticulosis. No evidence of diverticulitis no obstruction or bowel wall thickening. Appendix is unremarkable. Peritoneal Cavity: No ascites, collection or mesenteric inflammatory response. Lymph Nodes: Within normal limits. Soft Tissues: Unremarkable. PELVIS: Bladder: Symmetric distention, no gross wall thickening. Reproductive Organs: Status post hysterectomy. Lymph Nodes: Within normal limits. Bones: Degenerative changes and mild scoliosis. IMPRESSION: 1. No evidence of pulmonary embolism or other acute abnormality in the chest.. 2. No acute abdominal or pelvic process. Incidental findings as mentioned above. RADIATION DOSE DELIVERED: 1,304.82mGy.cm Total DLP DATA REPOSITORY: All CT scans at this facility are submitted to the National Radiology Data Registry (NRDR) Dose Index Registry (DIR) with the [employer] (ACR). RADIATION OPTIMIZATION: All CT scans at this facility use at least one of these dose optimization te chniques: automated exposure control; mA and/or kV adjustment per patient size (includes targeted exa ms where dose is matched to clinical indication); or iterative reconstruction.
--- NOTE | 2022-10-21 19:20 | W.ED.GENAD ---
Discharge Plan Disposition Patient Disposition: Admit to [facility] Condition: Serious Discharge Details Clinical Impression: Abdominal pain Admit Date/Time: 10/21/22 22:52 Admit Provider: Mukund Gross Attending Provider: Mukund Gross Primary Care Provider: Cathie Strange ED Provider: Kathleen Bartlett Discharge Data Discharge Date/Time-TO BE ENTERED AT DEPARTURE: 10/21/22 23:49 Medical Decision Making 67-year-old female who presents with abdominal pain, chest pain has negative CTA of her chest, negative troponin times 4-year-old, low suspicion for cardiac etiology of the pain, suspect musculoskeletal in nature given recent lifting Diagnostic labs are reassuring CT abdomen and pelvis exhibits malrotation per virtual radiology interpretation my review, she has had this pain for 2 weeks without an acute abdomen on exam, she will be admitted overnight for observation after discussion with her surgeon, Dr. Gross, she is agreeable to this plan at this time She has a mild gap on her labs, she is given fluids and is resting comfortably at time of reassessment She is agreeable to admission at this time HPI General Date/Time Provider Initiated Documentation: 10/21/22 16:07. HPI Narrative: This 67-year-old female presents with some mild chest pain which is pleuritic in nature and abdominal pain which feels like her diverticulitis. She has had the abdominal pain for 2 weeks and the chest pain since early this morning. She denies any fever or chills. She denies any shortness of breath. She denies any calf pain or swelling or history of coagulopathy. Denies any pain in the absence of deep breathing. Has not taken schg-lqg-nzimqno medications. Denies personal cardiac history feeling. Brother reportedly had an AL at 47 years old. Patient does not drink, smoke, or use any illicit drugs. She does have a history of hypertension and hyperlipidemia reportedly. Denies any urinary complaints. Denies any nausea or vomiting. Related Data Home Medications Medication Instructions Recorded Confirmed lorazepam 1 mg tablet 1 tab PO BID PRN PRN 04/06/14 10/21/22 magnesium chloride 71.5 mg 2 tab PO DAILY #60 tab-caps 04/11/14 10/21/22 (magnesium chloride) tablet,delayed release (Slow-Mag) haloperidol 2 mg tablet 2 mg PO HS PRN 04/29/15 10/21/22 lansoprazole 30 mg capsule,delayed 30 mg PO DAILY Cramer's 12/11/21 10/21/22 release oesophagus/GERD #90 caps cetirizine 10 mg tablet 10 mg PO DAILY #90 tabs 01/01/22 10/21/22 bupropion HCl 300 mg 24 hr tablet, 300 mg PO DAILY 02/10/22 10/21/22 extended release lamotrigine 200 mg tablet 200 mg PO HS 02/10/22 10/21/22 lurasidone 120 mg tablet (Latuda) 120 mg PO DAILY 02/10/22 10/21/22 multivitamin-ferrous 1 tab PO DAILY 02/10/22 10/21/22 fumarate-folic acid 18 mg-400 mcg tablet sertraline 100 mg tablet 150 mg PO DAILY 02/10/22 10/21/22 ysdwtyllux-msjpewluqikng-pkfuvihw 1 cap PO DAILY PRN headache #4 caps 04/05/22 10/21/22 50 mg-300 mg-40 mg capsule Previous Rx's Medication Instructions Recorded lansoprazole 30 mg capsule,delayed 30 mg PO DAILY Cramer's 12/11/21 release oesophagus/GERD #90 caps cetirizine 10 mg tablet 10 mg PO DAILY #90 tabs 01/01/22 mwmtkixtxq-kqjrgvwavuxyg-xybuigex 1 cap PO DAILY PRN headache #4 caps 04/05/22 50 mg-300 mg-40 mg capsule Allergies Allergy/AdvReac Type Severity Reaction Status Date / Time Penicillins Allergy Swelling/Ed Verified 10/21/22 16:02 dilia latex AdvReac Severe Skin Rash Verified 10/21/22 16:02 azithromycin [From Zithromax] AdvReac headache, Verified 10/21/22 16:02 hearing loss,double vision, DAVILA ciprofloxacin [From Cipro] AdvReac Dizziness/L Verified 10/21/22 16:02 ightheade codeine AdvReac GI upset Verified 10/21/22 16:02 Sulfa (Sulfonamide AdvReac anxious Verified 10/21/22 16:02 Antibiotics) General Stated Complaint: Chest Pain MARIAM: 3 PFSH All Active Problems (Updated 10/23/22 @ 20:36 by ANKUSH Magaña) Abdominal pain (Acute) Enteritis (Acute) Sinusitis (Acute) Bipolar I disorder (Chronic) Postmenopausal bleeding (Acute 04/10/12) Diabetes mellitus (Chronic 11/04/11) Benign neoplasm of kidney (Acute) Transient blindness (Acute) Proctocele (Acute 05/26/15) Multiple cranial nerve palsy (Acute) Complete uterine prolapse (Acute 05/26/15) Migraine (Chronic) Diverticulitis large intestine (Acute) Tooth ache (Acute) Viral syndrome (Acute) Allergic rhinitis (Acute 05/05/15) Kidney stone (Acute) lithotripsy 2009 (right) Medical History Cramer's esophagus Benign neoplasm of kidney Bipolar I disorder Diabetes mellitus Essential hypertension Essential hypertension (06/28/13) no rx (2014) Gastroesophageal reflux disease with esophagitis gastroscopy February 2013: oesophagitis () no response to Ranitidine, Pantoprazole/ on Nexium x age 31 Glaucoma Hyperlipidemia Hyperlipidemia (03/27/13) Hypothyroidism Hypoxia Postmenopausal bleeding uterine fibroids Surgical History History of bilateral ligation of fallopian tubes History of esophagogastroduodenoscopy History of surgical procedure (10/03/14) History of total vaginal hysterectomy (TVH) (07/03/15) Ligation of fallopian tube Status post cystoscopy (07/03/15) Status post foot surgery Vaginal hysterectomy (07/03/15) UTEROSACRAL SUSPENSION; CYSTOSCOPY, RECTOCELE REPAIR Family History Mother Essential hypertension Personal history of malignant neoplasm LUNG Stroke Father Essential hypertension Heart disease Hyperlipidemia Sister No problems noted. Sister No problems noted. Brother Heart disease DOUBLE BYPASS AGE 48 (NON SMOKER) Hyperlipidemia Grandfather Personal history of malignant neoplasm LUNG Grandfather No problems noted. Grandmother Heart disease Myocardial infarction Grandmother Diabetes Son No problems noted. Son Depression Daughter Depression Social History Smoking/Tobacco Use Status: Former Tobacco Use Smoking risk assessment performed?: Yes Alcohol Intake: never Drug use: Never Substance use type: does not use Do you feel safe at home: Yes Do you feel safe in your relationship?: Yes Exam Narrative Exam Narrative: Alert and pleasant 67-year-old female who appears well, moist mucous membranes, no scleral icterus, rate and rhythm regular per cardiac exam and lungs are clear to auscultation bilaterally, abdomen is diffusely tender, no specifically in the right lower quadrant without rebound or guarding, bowel sounds are intact, mild pallor, chest wall tenderness on exam, no calf swelling or tenderness Course Vital Signs Vital signs: Vital Signs Temperature 36.7 C 10/21/22 15:53 Pulse 79 10/21/22 15:53 Respiratory Rate 20 10/21/22 15:53 Blood Pressure 133/94 H 10/21/22 15:53 Pulse Oximetry 94 10/21/22 15:53 Temperature 36.7 C 10/21/22 15:53 Temperature Source Tympanic 10/21/22 15:53 Pulse 70 10/21/22 17:31 Pulse 67 10/21/22 18:10 Respiratory Rate 19 10/21/22 18:10 Respiratory Effort Normal, Non-Labored 10/21/22 16:00 Respiratory Depth Normal 10/21/22 16:00 Respiratory Pattern Normal 10/21/22 16:00 Blood Pressure 127/91 H 10/21/22 17:31 Blood Pressure Mean 100 10/21/22 17:31 Blood Pressure Position Sitting 10/21/22 15:53 Pulse Oximetry 93 10/21/22 18:25 Oxygen Delivery Method Nasal Cannula 10/21/22 18:25 Oxygen Flow Rate 2 10/21/22 18:25 Pain Level 2 10/21/22 17:47 Lab/Test Results Lab/Test Results: Laboratory Tests Range/Units 10/21/22 10/21/22 10/21/22 16:10 16:10 17:35 WBC (4.4-10.8) 10^3/uL 7.07 RBC (3.93-5.22) 10^6/uL 4.85 Hgb (11.2-15.7) g/dL 15.3 Hct (36.0-46.0) % 45.8 MCV (80-95) fL 94 MCH (27.0-33.0) pg 31.5 MCHC (32.0-36.0) % 33.4 RDW (11.7-14.6) % 12.5 Plt Count (130-400) 10^3/uL 191 MPV (8.0-11.0) fL 9.9 Immature Gran % 0.8 Neutrophils % 56.7 Lymphocytes % 27.6 Monocytes % 10.5 Eosinophils % 3.7 Basophils % 0.7 Nucleated RBC % (0.0-0.3) % 0.0 Absolute Neutrophils (1.2-6.7) 10^3/uL 4.01 Absolute Lymphocytes (1.2-3.4) 10^3/uL 1.95 Absolute Monocytes (0.1-0.8) 10^3/uL 0.74 Absolute Eosinophils (0.0-0.7) 10^3/uL 0.26 Absolute Basophils (0.0-0.2) 10^3/uL 0.05 Sodium (136-145) mmol/L 138 Potassium (3.5-5.1) mmol/L 3.5 Chloride (98-107) mmol/L 99 Carbon Dioxide (21.0-32.0) mmol/L 27.2 Anion Gap (3-11) mmol/L 11.8 H BUN (7-18) mg/dL 6 L Creatinine (0.55-1.02) mg/dL 1.0 Est GFR (CKD-EPI 2020) (mL/min/1.73m2) 62.52 Glucose (74-106) mg/dL 85 Calcium (8.5-10.1) mg/dL 9.3 Total Bilirubin (0.2-1.0) mg/dL 0.3 AST (15-37) U/L 26 ALT (14-59) U/L 26 Alkaline Phosphatase (46-116) U/L 62 Troponin I (<or=60) ng/L < 50 Total Protein (6.4-8.2) g/dL 7.7 Albumin (3.4-5.0) g/dL 4.3 Lipase (16-77) U/L 33 Urine Color (Yellow) Yellow Urine Clarity (Clear) Clear Urine pH (5-8) 5.5 Ur Specific Ma[place]pas (1.005-1.025) 1.010 Urine Protein (Negative) mg/dL Negative Urine Ketones (Negative) mg/dL 15 H Urine Blood (Negative) Negative Urine Nitrite (Negative) Negative Urine Bilirubin (Negative) Negative Urine Urobilinogen (Up TO 0.2) EU/dL 0.2 Ur Leukocyte Esterase (Negative) Negative Urine Glucose (Negative) mg/dL Negative
[2022-10-21 20:03] LABS: Troponin I < 50 ng/L (<or=60)
[2022-10-21] MEDS: Omnipaque 350 MG/ML 100 ML BTL IJ (21:58)
[2022-10-21] MEDS: Normal Saline - Diluent 50 ML VIAL IJ (21:58)
[2022-10-21] MEDS: Normal Saline Flush 10 ML SYR IVP (21:59)
--- NOTE | 2022-10-21 22:42 | DI.VRAD_ITS ---
PROCEDURE INFORMATION: Exam: CTA Chest With Contrast CTA Abdomen With Contrast Exam date and time: 10/21/2022 9:31 PM Age: 67 years old Clinical indication: Other: Hypoxia, abdominal pain TECHNIQUE: Imaging protocol: Computed tomographic angiography of the chest with contrast. Computed tomographic angiography of the abdomen with contrast. 3D rendering (Not supervised by radiologist): MIP and/or 3D reconstructed images were created by the technologist. Contrast material: OMNIPAQUE 350; Contrast volume: 100 ml; Contrast route: INTRAVENOUS (IV); COMPARISON: CT CHEST/ABD/PEL WO 04/16/2022 6:29 AM FINDINGS: VASCULATURE: Pulmonary arteries: No evidence of acute pulmonary embolism. Aorta: The thoracic aorta is normal without evidence of aneurysmal dilatation, dissection or occlusive disease. Mild atherosclerotic plaquing of the from renal abdominal aorta without evidence of flow-limiting stenosis or aneurysmal dilatation. The aorta demonstrates mild atherosclerotic calcification. The abdominal aorta is otherwise widely patent without evidence of significant occlusive or aneurysmal disease. Celiac trunk and mesenteric arteries: The celiac artery is widely patent without evidence of occlusive or aneurysmal disease. Superior mesenteric artery is widely patent without evidence of occlusive or aneurysmal disease.The inferior mesenteric artery is widely patent without evidence of occlusive or aneurysmal disease. Renal arteries: Single renal artery supplies the right kidney, is widely patent, without evidence of significant occlusive or aneurysmal disease. Single renal artery supplies the left kidney, there is moderate atherosclerosis with mild stenosis at the origin but is otherwise widely patent, without evidence of significant occlusive or aneurysmal disease. Right iliac arteries: Mild atherosclerosis of the right common iliac artery. Otherwise, the right common iliac artery, right internal iliac artery and right external iliac arteries are widely patent without evidence of significant occlusive or aneurysmal disease. Right femoral/popliteal arteries: The right common femoral artery is widely patent without evidence of significant occlusive or aneurysmal disease. The proximal right deep and superficial femoral arteries are widely patent without evidence of significant occlusive or aneurysmal disease. Left iliac arteries: Mild atherosclerosis of the left common iliac artery. Otherwise, the left common iliac artery, left internal iliac artery and left external iliac arteries are widely patent without evidence of significant occlusive or aneurysmal disease. Left femoral/popliteal arteries: The left common femoral artery is widely patent without evidence of significant occlusive or aneurysmal disease. The proximal left deep and superficial femoral arteries are widely patent without evidence of significant occlusive or aneurysmal disease. Veins: The inferior venacava appears normal.The portal, mesenteric and splenic veins are patent.The extra-abdominal soft tissues are normal. CHEST: Lungs: There is heterogeneous attenuation of the pulmonary parenchyma, consistent with air trapping from underlying small airways disease. Ground-glass opacities present within the right lower lobe of the lung with atelectasis and scarring. Mild atelectatic changes scarring seen at the lung bases bilaterally. The pulmonary arteries are normal in caliber. There is no evidence of focal pulmonary consolidation. No evidence of pulmonary parenchymal inflammatory changes. There is no evidence of pulmonary masses. Pleural spaces: There is no evidence of pneumothorax. There are no pleural effusions present. Heart: The cardiac structures are normal. The right ventricular to left ventricular ratio is normal measuring approximately the right ventricular to left ventricular ratio is normal measuring approximately 0.75. Diaphragm: A small hiatal hernia is present. ABDOMEN AND PELVIS: Liver: There is a diffuse decrease in hepatic parenchymal density, consistent with mild fatty infiltration. There are no focal liver lesions present. Mild intrahepatic and extrahepatic biliary dilatation present. Gallbladder and bile ducts: There has been a cholecystectomy. Pancreas: The pancreas is normal. Spleen: Low-attenuation lesions within the spleen likely represent small developing cysts or hemangiomas. These are unchanged compared 04/16/2022. Adrenal glands: The adrenal glands are normal without evidence of mass or enlargement. Kidneys and ureters: There is a low-attenuation lesion measuring 2.3 x 2 cm seen within the midpole of the left kidney consistent with angiomyolipoma unchanged compared to the prior study of 07/13/2022. The kidneys are normal no evidence of nephrolithiasis or hydronephrosis. The ureters are normal caliber and follow a normal caliber and course. 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 The appendix appears normal. There are diffuse fluid filled loops of small bowel and colon with scattered air fluid levels. The bowel loops are mildly distended. There are associated bowel wall thickening or inflammatory changes. No evidence of obstruction. Findings most consistent with diffuse enterocolitis. Moderate to severe diverticulosis is present in the ascending, transverse, descending and sigmoid colon. No definitive evidence of acute diverticulitis the there is thickening of the colon at the sigmoid colon may represent chronic thickening secondary to chronic diverticulitis. Appendix: There is no evidence of appendicitis. Intraperitoneal space: Please see CT angiography of the abdomen and pelvis. Urinary bladder: The bladder is normal. Reproductive: There has been a hysterectomy. No adnexal cysts or masses are identified. Lymph nodes: There is no evidence of lymphadenopathy. Bones/joints: The spine, sternum, ribs, and pectoral girdles show no evidence of acute abnormality. The skeletal structures and soft tissues show no evidence of fracture or other acute processes. The lumbar spine demonstrates moderate degenerative changes. The thoracolumbar spine demonstrates moderate degenerative changes at multiple levels. Soft tissues: There are no soft tissue masses or fluid collections. Other findings: The mediastinal structures are normal. IMPRESSION: 1. 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 The appendix appears normal. There are diffuse fluid filled loops of small bowel and colon with scattered air fluid levels. The bowel loops are mildly distended. There are associated bowel wall thickening or inflammatory changes. No evidence of obstruction. Findings most consistent with diffuse enterocolitis. 2. Moderate to severe diverticulosis is present in the ascending, transverse, descending and sigmoid colon. No definitive evidence of acute diverticulitis the there is thickening of the colon at the sigmoid colon may represent chronic thickening secondary to chronic diverticulitis. 3. There is heterogeneous attenuation of the pulmonary parenchyma, consistent with air trapping from underlying small airways disease. 4. No evidence of acute pulmonary embolism. 5. There is a low-attenuation lesion measuring 2.3 x 2 cm seen within the midpole of the left kidney consistent with angiomyolipoma unchanged compared to the prior study of 07/13/2022. 6. No evidence of significant aneurysmal or occlusive disease seen within the arterial systems. Dictated and Authenticated by: Massimo Moser MD. Ordering:LORENZO Wang MD
[2022-10-21 23:36] LABS: Source Nasal/Nares
[2022-10-22] VITALS (7 sets, daily range): BP systolic 120–142; BP diastolic 68–82; PULSE 62–77; RESP 14–18; TEMP 36.2–37.1; O2SAT 90–96
[2022-10-22 00:07] LABS: COVID-19 PCR Negative (Negative)
[2022-10-22] MEDS: Normal Saline Flush 10 ML SYR IVP ×4 (00:49→12:51)
[2022-10-22] MEDS: Lactated Ringers 1,000 ML 80 ML IV (00:49)
[2022-10-22] MEDS: lamoTRIgine 100 MG TAB 200 MG PO (01:25)
[2022-10-22] MEDS: hydrOXYzine HCL 25 MG TAB PO (01:26)
[2022-10-22] MEDS: Cetirizine 10 MG TAB PO (01:26)
[2022-10-22] MEDS: traZODone 100 MG TAB 200 MG PO (01:26)
[2022-10-22] MEDS: Lurasidone 20 MG TAB 120 MG PO (01:27)
[2022-10-22] MEDS: fentaNYL 100 MCG/2 ML VIAL 50 MCG IVP ×3 (04:22→12:51)
--- NOTE | 2022-10-22 05:42 | W.PM.HP.N ---
Date of service: 10/22/22 Time of Service: 05:42 Assessment and Plan Assessment and plan (1) Diverticulitis of sigmoid colon: Status: Acute Assessment and plan: The interpretation of the CAT scan is malrotation is incorrect. The gastroduodenal junction lies in the normal anatomic position, the duodenal sweep crosses the midline below the superior mesenteric artery. Furthermore, the cecum is in the right lower quadrant. She does have extensive diverticulosis. I will wait for the official report of our radiologist here, but there are certainly no indications for emergency surgery at this point. Furthermore, she has a colonoscopy planned in the next few weeks. In the absence of fevers, leukocytosis, or any abnormalities in her vital signs, I think it is reasonable to try to get her home and follow-up with outpatient colonoscopy as planned. History of Present Illness History of Present Illness Chief Complaint: Abdominal pain Narrative: Benita is a 67-year-old woman who comes to the hospital complaining of chest pain. The work-up of that was negative for cardiac etiology, and thought to be musculoskeletal. She also reported approximately 2 weeks of abdominal pain, that she felt was consistent with diverticulitis. 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 This morning, she is sleeping, and easily arousable. She tells me that she has had nonfocal abdominal discomfort over the past 2 weeks or so with loss of appetite. She denies outright pain. She denies any nausea or vomiting. She denies any significant change in the character volume of her bowel movements. She denies melena, or hematochezia. Review of Systems Constitutional Constitutional: Denies chills, Reports fatigue, Denies fever(s), Reports poor appetite and Denies weight loss Eyes Eyes: Reports system reviewed and no additional complaints, except as documented ENT Ears, Nose, Mouth, and Throat: Reports system reviewed and no additional complaints, except as documented Cardiovascular Cardiovascular: Denies chest pain at rest and Denies dyspnea Respiratory Respiratory: Denies chest congestion, Denies cough and Denies dyspnea Gastrointestinal Gastrointestinal: Reports abdominal pain, Denies change in bowel habits, Denies diarrhea and Denies nausea Musculoskeletal Musculoskeletal: Reports arthralgias, Denies muscle weakness and Denies numbness Neurologic Neurologic: Denies behavioral changes and Denies numbness Psychiatric Psychiatric: Denies behavioral changes Endocrine Endocrine: Reports fatigue Hematologic/Lymphatic Hematologic/Lymphatic: Denies easy bleeding and Denies easy bruising PFSH All Active Problems Sinusitis (Acute) Bipolar I disorder (Chronic) Diverticulitis of sigmoid colon (Acute) Postmenopausal bleeding (Acute 04/10/12) Diabetes mellitus (Chronic 11/04/11) Benign neoplasm of kidney (Acute) Transient blindness (Acute) Proctocele (Acute 05/26/15) Multiple cranial nerve palsy (Acute) Complete uterine prolapse (Acute 05/26/15) Migraine (Chronic) Diverticulitis large intestine (Acute) Tooth ache (Acute) Viral syndrome (Acute) Allergic rhinitis (Acute 05/05/15) Kidney stone (Acute) lithotripsy 2009 (right) Medical History Cramer's esophagus Benign neoplasm of kidney Bipolar I disorder Diabetes mellitus Essential hypertension Essential hypertension (06/28/13) no rx (2014) Gastroesophageal reflux disease with esophagitis gastroscopy February 2013: oesophagitis () no response to Ranitidine, Pantoprazole/ on Nexium x age 31 Glaucoma Hyperlipidemia Hyperlipidemia (03/27/13) Hypothyroidism Hypoxia Postmenopausal bleeding uterine fibroids Surgical History History of bilateral ligation of fallopian tubes History of esophagogastroduodenoscopy History of surgical procedure (10/03/14) History of total vaginal hysterectomy (TVH) (07/03/15) Ligation of fallopian tube Status post cystoscopy (07/03/15) Status post foot surgery Vaginal hysterectomy (07/03/15) UTEROSACRAL SUSPENSION; CYSTOSCOPY, RECTOCELE REPAIR Family History Mother Essential hypertension Personal history of malignant neoplasm LUNG Stroke Father Essential hypertension Heart disease Hyperlipidemia Sister No problems noted. Sister No problems noted. Brother Heart disease DOUBLE BYPASS AGE 48 (NON SMOKER) Hyperlipidemia Grandfather Personal history of malignant neoplasm LUNG Grandfather No problems noted. Grandmother Heart disease Myocardial infarction Grandmother Diabetes Son No problems noted. Son Depression Daughter Depression Social History Smoking/Tobacco Use Status: Former Tobacco Use Smoking risk assessment performed?: Yes Alcohol Intake: never Drug use: Never Substance use type: does not use Do you feel safe at home: Yes Do you feel safe in your relationship?: Yes Meds Allergies and Home Medications Allergies Allergy/AdvReac Type Severity Reaction Status Date / Time Penicillins Allergy Swelling/Ed Verified 10/21/22 16:02 dilia latex AdvReac Severe Skin Rash Verified 10/21/22 16:02 azithromycin [From Zithromax] AdvReac headache, Verified 10/21/22 16:02 hearing loss,double vision, DAVILA ciprofloxacin [From Cipro] AdvReac Dizziness/L Verified 10/21/22 16:02 ightheade codeine AdvReac GI upset Verified 10/21/22 16:02 Sulfa (Sulfonamide AdvReac anxious Verified 10/21/22 16:02 Antibiotics) Home Medications Medication Instructions Recorded Confirmed Type lorazepam 1 mg tablet 1 tab PO BID PRN PRN 04/06/14 10/21/22 History magnesium chloride 71.5 mg 2 tab PO DAILY #60 tab-caps 04/11/14 10/21/22 History (magnesium chloride) tablet,delayed release (Slow-Mag) haloperidol 2 mg tablet 2 mg PO HS PRN 04/29/15 10/21/22 History lansoprazole 30 mg capsule,delayed 30 mg PO DAILY Cramer's 12/11/21 10/21/22 Rx release oesophagus/GERD #90 caps cetirizine 10 mg tablet 10 mg PO DAILY #90 tabs 01/01/22 10/21/22 Rx bupropion HCl 300 mg 24 hr tablet, 300 mg PO DAILY 02/10/22 10/21/22 History extended release lamotrigine 200 mg tablet 200 mg PO HS 02/10/22 10/21/22 History lurasidone 120 mg tablet (Latuda) 120 mg PO DAILY 02/10/22 10/21/22 History multivitamin-ferrous 1 tab PO DAILY 02/10/22 10/21/22 History fumarate-folic acid 18 mg-400 mcg tablet sertraline 100 mg tablet 150 mg PO DAILY 02/10/22 10/21/22 History wloocikhvj-xrgzgfuagexnf-fkkbzqxv 1 cap PO DAILY PRN headache #4 caps 04/05/22 10/21/22 Rx 50 mg-300 mg-40 mg capsule metronidazole 500 mg tablet 500 mg PO TID #21 tabs 07/12/22 10/21/22 Rx Exam Const General: cooperative, comfortable and no acute distress Nutritional Appearance: overweight Orientation: alert, awake and oriented x3 HENMT Head: normal to inspection Eyes General: appearance normal, both eyes and all related structures Resp Effort & Inspection: normal respiratory effort, able to speak in complete sentences and no cough Auscultation: clear to auscultation bilaterally Cardio Jugular venous pressure: no JVD Rate: regular rate Rhythm: regular rhythm Heart Sounds: S1 normal and S2 normal GI Inspection: normal to inspection and large pannus Palpation: soft, no guarding, no hernias and tender (Nonfocal) Auscultation: normal bowel sounds Skin General skin exam: no rashes or lesions noted Extrem Right lower extremity: no edema Left lower extremity: no edema Results Labs 10/21/22 16:10 10/21/22 16:10 Labs: Laboratory Results - last 24 hr 10/21/22 10/21/22 10/21/22 16:10 16:10 17:35 WBC 7.07 RBC 4.85 Hgb 15.3 Hct 45.8 MCV 94 MCH 31.5 MCHC 33.4 RDW 12.5 Plt Count 191 MPV 9.9 Immature Gran % 0.8 Neutrophils % 56.7 Band Neutrophils % Lymphocytes % 27.6 Atypical Lymphs % Monocytes % 10.5 Eosinophils % 3.7 Basophils % 0.7 Metamyelocytes % Myelocytes % Promyelocytes % Other Cells % Nucleated RBC % 0.0 Absolute Neutrophils 4.01 Absolute Lymphocytes 1.95 Absolute Monocytes 0.74 Absolute Eosinophils 0.26 Absolute Basophils 0.05 RBC Morphology Polychromasia Hypochromasia Poikilocytosis Basophilic Stippling Anisocytosis Microcytosis Macrocytosis Spherocytes Tear Drop Cells Ovalocytes Stomatocytes [place] Bodies [place] Cells/Echinocytes Acanthocytes (Spur) Schistocytes Sodium 138 Potassium 3.5 Chloride 99 Carbon Dioxide 27.2 Anion Gap 11.8 H BUN 6 L Creatinine 1.0 Est GFR (CKD-EPI 2020) 62.52 Glucose 85 Calcium 9.3 Total Bilirubin 0.3 AST 26 ALT 26 Alkaline Phosphatase 62 Troponin I < 50 Total Protein 7.7 Albumin 4.3 Lipase 33 Urine Color Yellow Urine Clarity Clear Urine pH 5.5 Ur Specific [place] 1.010 Urine Protein Negative Urine Ketones 15 H Urine Blood Negative Urine Nitrite Negative Urine Bilirubin Negative Urine Urobilinogen 0.2 Ur Leukocyte Esterase Negative Urine Glucose Negative COVID-19 Source SARS-CoV-2 (PCR) 10/21/22 10/21/22 10/21/22 19:25 22:52 23:04 WBC Cancelled Cancelled RBC Cancelled Cancelled Hgb Cancelled Cancelled Hct Cancelled Cancelled MCV Cancelled Cancelled MCH Cancelled Cancelled MCHC Cancelled Cancelled RDW Cancelled Cancelled Plt Count Cancelled Cancelled MPV Cancelled Cancelled Immature Gran % Cancelled Cancelled Neutrophils % Cancelled Cancelled Band Neutrophils % Cancelled Cancelled Lymphocytes % Cancelled Cancelled Atypical Lymphs % Cancelled Cancelled Monocytes % Cancelled Cancelled Eosinophils % Cancelled Cancelled Basophils % Cancelled Cancelled Metamyelocytes % Cancelled Cancelled Myelocytes % Cancelled Cancelled Promyelocytes % Cancelled Cancelled Other Cells % Cancelled Cancelled Nucleated RBC % Cancelled Cancelled Absolute Neutrophils Cancelled Cancelled Absolute Lymphocytes Cancelled Cancelled Absolute Monocytes Cancelled Cancelled Absolute Eosinophils Cancelled Cancelled Absolute Basophils Cancelled Cancelled RBC Morphology Cancelled Cancelled Polychromasia Cancelled Cancelled Hypochromasia Cancelled Cancelled Poikilocytosis Cancelled Cancelled Basophilic Stippling Cancelled Cancelled Anisocytosis Cancelled Cancelled Microcytosis Cancelled Cancelled Macrocytosis Cancelled Cancelled Spherocytes Cancelled Cancelled Tear Drop Cells Cancelled Cancelled Ovalocytes Cancelled Cancelled Stomatocytes Cancelled Cancelled [place] Bodies Cancelled Cancelled [place] Cells/Echinocytes Cancelled Cancelled Acanthocytes (Spur) Cancelled Cancelled Schistocytes Cancelled Cancelled Sodium Potassium Chloride Carbon Dioxide Anion Gap BUN Creatinine Est GFR (CKD-EPI 2020) Glucose Calcium Total Bilirubin AST ALT Alkaline Phosphatase Troponin I < 50 Total Protein Albumin Lipase Urine Color Urine Clarity Urine pH Ur Specific [place] Urine Protein Urine Ketones Urine Blood Urine Nitrite Urine Bilirubin Urine Urobilinogen Ur Leukocyte Esterase Urine Glucose COVID-19 Source SARS-CoV-2 (PCR) 10/21/22 23:20 WBC RBC Hgb Hct MCV MCH MCHC RDW Plt Count MPV Immature Gran % Neutrophils % Band Neutrophils % Lymphocytes % Atypical Lymphs % Monocytes % Eosinophils % Basophils % Metamyelocytes % Myelocytes % Promyelocytes % Other Cells % Nucleated RBC % Absolute Neutrophils Absolute Lymphocytes Absolute Monocytes Absolute Eosinophils Absolute Basophils RBC Morphology Polychromasia Hypochromasia Poikilocytosis Basophilic Stippling Anisocytosis Microcytosis Macrocytosis Spherocytes Tear Drop Cells Ovalocytes Stomatocytes [place] Bodies [place] Cells/Echinocytes Acanthocytes (Spur) Schistocytes Sodium Potassium Chloride Carbon Dioxide Anion Gap BUN Creatinine Est GFR (CKD-EPI 2020) Glucose Calcium Total Bilirubin AST ALT Alkaline Phosphatase Troponin I Total Protein Albumin Lipase Urine Color Urine Clarity Urine pH Ur Specific [place] Urine Protein Urine Ketones Urine Blood Urine Nitrite Urine Bilirubin Urine Urobilinogen Ur Leukocyte Esterase Urine Glucose COVID-19 Source Nasal/Nares SARS-CoV-2 (PCR) Negative Last Vital Signs Temp 97.2 F L 10/22/22 03:42 Pulse 72 10/22/22 03:42 Resp 18 10/22/22 03:42 BP 120/71 10/22/22 03:42 Pulse Ox 92 10/22/22 03:42 Time Spent Time spent with Patient: 55-74 minutes Time was spent: preparing to see the patient(eg.review tests), indepentently interpreting results and counseling the patient
[2022-10-22 06:42] LABS: Abs Immature Grans 0.03 10^3/uL (0.0-0.06); Absolute Basophil Count 0.05 10^3/uL (0.0-0.2); Absolute Eosinophil Count 0.29 10^3/uL (0.0-0.7); Absolute Lymphocyte Count 1.84 10^3/uL (1.2-3.4); Eosinophils % 5.8; HCT 43.7 % (36.0-46.0); HGB 14.3 g/dL (11.2-15.7); Immature Grans % 0.6; Lymphocytes % 36.7; MCH 31.6 pg (27.0-33.0); MCHC 32.7 % (32.0-36.0); MCV 97 fL (80-95); Neutrophils % 43.9; Platelet Count 159 10^3/uL (130-400); RBC 4.53 10^6/uL (3.93-5.22); RDW 12.7 % (11.7-14.6); RDW-SD 45.3 fL; WBC 5.01 10^3/uL (4.4-10.8)
[2022-10-22 07:05] LABS: ALT 23 U/L (14-59); AST 23 U/L (15-37); Alkaline Phosphatase 59 U/L (46-116); Anion Gap 11.5 mmol/L (3-11); BUN 6 mg/dL (7-18); Bilirubin, Total 0.4 mg/dL (0.2-1.0); CO2 26.5 mmol/L (21.0-32.0); Calcium 8.8 mg/dL (8.5-10.1); Chloride 104 mmol/L (98-107); Estimated GFR 62.52 (mL/min/1.73m2); Glucose 80 mg/dL (74-106); Potassium 3.5 mmol/L (3.5-5.1); Sodium 142 mmol/L (136-145)
--- NOTE | 2022-10-22 09:03 | INITIAL_ITS ---
- If Service Date Differs Date of service: 10/22/22 Time of Service: 09:03 Care Management Initial Assess REASON FOR HOSPITALIZATION:: Abdominal Pain PAST MEDICAL HISTORY/PAST SURGICAL HISTORY:: All Active Problems . Sinusitis (Acute). Bipolar I disorder (Chronic). Diverticulitis of sigmoid colon (Acute). Postmenopausal bleeding (Acute 04/10/12). Diabetes mellitus (Chronic 11/04/11). Benign neoplasm of kidney (Acute). Transient blindness (Acute). Proctocele (Acute 05/26/15). Multiple cranial nerve palsy (Acute). Complete uterine prolapse (Acute 05/26/15). Migraine (Chronic). Diverticulitis large intestine (Acute). Tooth ache (Acute). Viral syndrome (Acute). Allergic rhinitis (Acute 05/05/15). Kidney stone (Acute). lithotripsy 2009 (right). Medical History . Cramer's esophagus. Benign neoplasm of kidney. Bipolar I disorder. Diabetes mellitus. Essential hypertension. Essential hypertension (06/28/13). no rx (2014). Gastroesophageal reflux disease with esophagitis. gastroscopy February 2013: oesophagitis (). no response to Ranitidine, Pantoprazole/ on Nexium x age 31. Glaucoma. Hyperlipidemia. Hyperlipidemia (03/27/13). Hypothyroidism. Hypoxia. Postmenopausal bleeding. uterine fibroids. Surgical History . History of bilateral ligation of fallopian tubes. History of esophagogastroduodenoscopy. History of surgical procedure (10/03/14). History of total vaginal hysterectomy (TVH) (07/03/15). Ligation of fallopian tube. Status post cystoscopy (07/03/15). Status post foot surgery. Vaginal hysterectomy (07/03/15). UTEROSACRAL SUSPENSION; CYSTOSCOPY, RECTOCELE REPAIR PREVIOUS FUNCTIONAL STATUS/SOCIAL/FAMILY SUPPORTS:: Benita lives alone in [place]. 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 She does not drive. Her neighbor Delfina is very supportive and transports her when needed. She has 3 adult children that she is not on speaking terms with. CURRENT FUNCTIONAL STATUS:: Benita is lying in bed when CM met with her. She is anxious and waiting for her home anxiety medications to be ordered, RN aware. ADVANCE DIRECTIVES:: None on file Has patient been provided with info about the portal/API?: Yes Did the patient sign up for the portal?: No CODE STATUS:: Full Code INSURANCE COVERAGE / FINANCIAL ISSUES:: Medicaid. Medicare. CURRENT HOME/COMMUNITY SERVICES/EQUIPMENT:: None PRIMARY CARE PHYSICIAN:: Cathie Strange POTENTIAL DISCHARGE NEEDS:: Outpatient follow up PATIENT/FAMILY EDUCATION NEEDS:: Review discharge instructions, limitations, medications and plan to follow up with community providers. ask me three. TRANSPORTATION:: Via private vehicle with friend Barbara. PLAN:: Anticipate, Benita will discharge home with no new [facility] services with a plan for outpatient follow up. Her friend Delfina is planning to drive her home.
[2022-10-22] MEDS: Magnesium Chloride 64 MG TABCR 128 MG PO (12:52)
[2022-10-22] MEDS: buPROPion-XL 150 MG TABCR 300 MG PO (12:52)
[2022-10-22] MEDS: Sertraline 50 MG TAB 150 MG PO (12:52)
[2022-10-22] MEDS: Lansoprazole 30 MG CAPCR PO (12:52)
[2022-10-22] MEDS: Multivitamin w/Minerals TAB 1 TAB PO (12:52)
--- NOTE | 2022-10-22 13:05 | W.PM.DS.N ---
Date of service: 10/22/22 Time of Service: 13:06 DS: Diagnosis Discharge Diagnosis (1) Abdominal pain: Status: Acute Asessment and Plan: 67yo female admitted to observation with abdominal pain. Final CT scan reading negative for acute findings. --d/c home, with plenty of fluid intake Discharge Plan Disposition Patient Disposition: Home Condition: Stable Discharge Details Reason For Visit: Abdominal Pain Admit Date/Time: 10/21/22 22:52 Admit Provider: Mukund Gross Attending Provider: Mukund Gross Primary Care Provider: Cathie Strange [facility] Course Hospital Course: This is a 67yo female who was admitted with concern for enterocolitis. She underwent IV fluid resuscitation, and was given a regular diet. Final CT scan reading is negative for acute findings. She still has some abdominal discomfort but is tolerating a diet and feels safe to go home. Home Meds and New Rx's Prescriptions: No Action metronidazole 500 mg tablet 500 mg PO TID Qty: 21 0RF Slow-Mag 71.5 MG tablet,delayed release (DR/EC) 2 tab PO DAILY Qty: 60 lansoprazole 30 mg capsule,delayed release(DR/EC) 30 mg PO DAILY Qty: 90 3RF cetirizine 10 mg tablet 10 mg PO DAILY Qty: 90 3RF alvestplkd-zkyqqwmohnujj-tkiw 50-300-40 mg capsule 1 cap PO DAILY PRN (Reason: headache) Qty: 4 0RF lorazepam 1 MG tablet 1 tab PO BID PRN PRN Patient Comments: Now TID 04/21/16 vp integration haloperidol 2 MG tablet 2 mg PO HS PRN liwhecbbiimh-mjho-voulv acid 18-400 mg-mcg Tablet 1 tab PO DAILY lamotrigine 200 mg tablet 200 mg PO HS Patient Comments: TAKE ONE TABLET BY MOUTH EVERY DAY. STOP MED IF RASH OCCURS lurasidone [Latuda] 120 mg tablet 120 mg PO DAILY Patient Comments: TAKE ONE TABLET BY MOUTH EVERY DAY WITH MEALS WITH TWO 20MG TABLETS FOR TOTAL 160MG/DAY Rx Instructions: TAKE WITH FOOD sertraline 100 mg tablet 150 mg PO DAILY Patient Comments: TAKE ONE TABLET BY MOUTH EVERY DAY bupropion HCl 300 mg tablet extended release 24 hr 300 mg PO DAILY Patient Comments: TAKE ONE TABLET BY MOUTH EVERY DAY Discharge Instructions Instructions: Diverticulosis Diet (GEN) Additional Instructions: Follow up with your primary care provider in the next 1-2 weeks. Activity:: Activity as Tolerated Equipment/Supplies:: No Equipment Needed Diet:: As Tolerated DS: Summary Time Spent with Patient providing and/or coordinating discharge services: Less than 30 minutes Status at Discharge Functional status at discharge: independent ambulation Overall status at discharge: patient is back to baseline Mental Status: mental status grossly normal Speech and Movement: speech and movement normal Mood: congruent mood Affect: normal affect Exam Const General: cooperative, comfortable and no acute distress Nutritional Appearance: overweight Orientation: alert, awake and oriented x3 HENMT Head: normal to inspection Eyes General: appearance normal, both eyes and all related structures Resp Effort & Inspection: normal respiratory effort, able to speak in complete sentences and no cough Auscultation: clear to auscultation bilaterally Cardio Rate: regular rate Rhythm: regular rhythm GI Inspection: normal to inspection and large pannus Palpation: soft, no guarding and tender (Nonfocal) Auscultation: normal bowel sounds Skin General skin exam: no rashes or lesions noted Extrem Right lower extremity: no edema Left lower extremity: no edema Psych Mental Status: mental status grossly normal Speech and Movement: speech and movement normal Mood: congruent mood Affect: normal affect DS: Data Vitals/I&O Vitals and I&O: Vital Signs Temperature 98.8 F 10/22/22 12:18 Temperature Source Tympanic 10/22/22 12:18 Pulse 71 10/22/22 12:18 Pulse Rhythm Regular 10/22/22 08:22 Pulse 62 10/21/22 22:46 Respiratory Rate 14 10/22/22 12:18 Respiratory Effort Normal, Non-Labored 10/22/22 08:22 Respiratory Depth Normal 10/22/22 08:22 Respiratory Pattern Normal 10/22/22 08:22 Blood Pressure 121/71 10/22/22 12:18 Blood Pressure Mean 128 10/21/22 22:46 Blood Pressure Position Sitting 10/21/22 15:53 Pulse Oximetry 92 10/22/22 12:18 Oxygen Delivery Method Nasal Cannula 10/22/22 12:18 Oxygen Flow Rate 2 10/22/22 12:18 Pain Level 5 10/22/22 12:51 Intake & Output 10/21/22 10/22/22 10/22/22 23:59 11:59 23:59 Intake Total 75 / 75 Output Total 300 / 300 Balance 75 / 75 -300 / -300 Weight 74.843 kg Intake: IV 75 / 75 Output: Urine 300 / 300 Other: Urine Color Yellow Urine Appearance Cloudy Urine Odor Normal Voiding Methods Toilet Data Completed and Pending Labs on day of discharge: Labs from last 24 hours 10/22/22 10/22/22 10/21/22 06:15 06:15 23:20 WBC 5.01 RBC 4.53 Hgb 14.3 Hct 43.7 MCV 97 H MCH 31.6 MCHC 32.7 RDW 12.7 Plt Count 159 MPV 10.0 Immature Gran % 0.6 Neutrophils % 43.9 Band Neutrophils % Lymphocytes % 36.7 Atypical Lymphs % Monocytes % 12.0 Eosinophils % 5.8 Basophils % 1.0 Metamyelocytes % Myelocytes % Promyelocytes % Other Cells % Nucleated RBC % 0.0 Absolute Neutrophils 2.20 Absolute Lymphocytes 1.84 Absolute Monocytes 0.60 Absolute Eosinophils 0.29 Absolute Basophils 0.05 RBC Morphology Polychromasia Hypochromasia Poikilocytosis Basophilic Stippling Anisocytosis Microcytosis Macrocytosis Spherocytes Tear Drop Cells Ovalocytes Stomatocytes Garcia-Gray[place] Bodies [place] Cells/Echinocytes Acanthocytes (Spur) Schistocytes Sodium 142 Potassium 3.5 Chloride 104 Carbon Dioxide 26.5 Anion Gap 11.5 H BUN 6 L Creatinine 1.0 Est GFR (CKD-EPI 2020) 62.52 Glucose 80 Calcium 8.8 Total Bilirubin 0.4 AST 23 ALT 23 Alkaline Phosphatase 59 Troponin I Total Protein 7.0 Albumin 4.0 Lipase Urine Color Urine Clarity Urine pH Ur Specific [place] Urine Protein Urine Ketones Urine Blood Urine Nitrite Urine Bilirubin Urine Urobilinogen Ur Leukocyte Esterase Urine Glucose COVID-19 Source Nasal/Nares SARS-CoV-2 (PCR) Negative 10/21/22 10/21/22 10/21/22 23:04 22:52 19:25 WBC Cancelled Cancelled RBC Cancelled Cancelled Hgb Cancelled Cancelled Hct Cancelled Cancelled MCV Cancelled Cancelled MCH Cancelled Cancelled MCHC Cancelled Cancelled RDW Cancelled Cancelled Plt Count Cancelled Cancelled MPV Cancelled Cancelled Immature Gran % Cancelled Cancelled Neutrophils % Cancelled Cancelled Band Neutrophils % Cancelled Cancelled Lymphocytes % Cancelled Cancelled Atypical Lymphs % Cancelled Cancelled Monocytes % Cancelled Cancelled Eosinophils % Cancelled Cancelled Basophils % Cancelled Cancelled Metamyelocytes % Cancelled Cancelled Myelocytes % Cancelled Cancelled Promyelocytes % Cancelled Cancelled Other Cells % Cancelled Cancelled Nucleated RBC % Cancelled Cancelled Absolute Neutrophils Cancelled Cancelled Absolute Lymphocytes Cancelled Cancelled Absolute Monocytes Cancelled Cancelled Absolute Eosinophils Cancelled Cancelled Absolute Basophils Cancelled Cancelled RBC Morphology Cancelled Cancelled Polychromasia Cancelled Cancelled Hypochromasia Cancelled Cancelled Poikilocytosis Cancelled Cancelled Basophilic Stippling Cancelled Cancelled Anisocytosis Cancelled Cancelled Microcytosis Cancelled Cancelled Macrocytosis Cancelled Cancelled Spherocytes Cancelled Cancelled Tear Drop Cells Cancelled Cancelled Ovalocytes Cancelled Cancelled Stomatocytes Cancelled Cancelled Garcia-[place] Bodies Cancelled Cancelled [place] Cells/Echinocytes Cancelled Cancelled Acanthocytes (Spur) Cancelled Cancelled Schistocytes Cancelled Cancelled Sodium Potassium Chloride Carbon Dioxide Anion Gap BUN Creatinine Est GFR (CKD-EPI 2020) Glucose Calcium Total Bilirubin AST ALT Alkaline Phosphatase Troponin I < 50 Total Protein Albumin Lipase Urine Color Urine Clarity Urine pH Ur Specific [place] Urine Protein Urine Ketones Urine Blood Urine Nitrite Urine Bilirubin Urine Urobilinogen Ur Leukocyte Esterase Urine Glucose COVID-19 Source SARS-CoV-2 (PCR) 10/21/22 10/21/22 10/21/22 17:35 16:10 16:10 WBC 7.07 RBC 4.85 Hgb 15.3 Hct 45.8 MCV 94 MCH 31.5 MCHC 33.4 RDW 12.5 Plt Count 191 MPV 9.9 Immature Gran % 0.8 Neutrophils % 56.7 Band Neutrophils % Lymphocytes % 27.6 Atypical Lymphs % Monocytes % 10.5 Eosinophils % 3.7 Basophils % 0.7 Metamyelocytes % Myelocytes % Promyelocytes % Other Cells % Nucleated RBC % 0.0 Absolute Neutrophils 4.01 Absolute Lymphocytes 1.95 Absolute Monocytes 0.74 Absolute Eosinophils 0.26 Absolute Basophils 0.05 RBC Morphology Polychromasia Hypochromasia Poikilocytosis Basophilic Stippling Anisocytosis Microcytosis Macrocytosis Spherocytes Tear Drop Cells Ovalocytes Stomatocytes Garcia-[place] Bodies [place] Cells/Echinocytes Acanthocytes (Spur) Schistocytes Sodium 138 Potassium 3.5 Chloride 99 Carbon Dioxide 27.2 Anion Gap 11.8 H BUN 6 L Creatinine 1.0 Est GFR (CKD-EPI 2020) 62.52 Glucose 85 Calcium 9.3 Total Bilirubin 0.3 AST 26 ALT 26 Alkaline Phosphatase 62 Troponin I < 50 Total Protein 7.7 Albumin 4.3 Lipase 33 Urine Color Yellow Urine Clarity Clear Urine pH 5.5 Ur Specific [place] 1.010 Urine Protein Negative Urine Ketones 15 H Urine Blood Negative Urine Nitrite Negative Urine Bilirubin Negative Urine Urobilinogen 0.2 Ur Leukocyte Esterase Negative Urine Glucose Negative COVID-19 Source SARS-CoV-2 (PCR) PFSH All Active Problems (Updated 10/22/22 @ 13:08 by Tony Alejandra MD) Abdominal pain (Acute) Enteritis (Acute) Sinusitis (Acute) Bipolar I disorder (Chronic) Diverticulitis of sigmoid colon (Acute) Postmenopausal bleeding (Acute 04/10/12) Diabetes mellitus (Chronic 11/04/11) Benign neoplasm of kidney (Acute) Transient blindness (Acute) Proctocele (Acute 05/26/15) Multiple cranial nerve palsy (Acute) Complete uterine prolapse (Acute 05/26/15) Migraine (Chronic) Diverticulitis large intestine (Acute) Tooth ache (Acute) Viral syndrome (Acute) Allergic rhinitis (Acute 05/05/15) Kidney stone (Acute) lithotripsy 2009 (right) Medical History Cramer's esophagus Benign neoplasm of kidney Bipolar I disorder Diabetes mellitus Essential hypertension Essential hypertension (06/28/13) no rx (2014) Gastroesophageal reflux disease with esophagitis gastroscopy February 2013: oesophagitis () no response to Ranitidine, Pantoprazole/ on Nexium x age 31 Glaucoma Hyperlipidemia Hyperlipidemia (03/27/13) Hypothyroidism Hypoxia Postmenopausal bleeding uterine fibroids Surgical History History of bilateral ligation of fallopian tubes History of esophagogastroduodenoscopy History of surgical procedure (10/03/14) History of total vaginal hysterectomy (TVH) (07/03/15) Ligation of fallopian tube Status post cystoscopy (07/03/15) Status post foot surgery Vaginal hysterectomy (07/03/15) UTEROSACRAL SUSPENSION; CYSTOSCOPY, RECTOCELE REPAIR Family History Mother Essential hypertension Personal history of malignant neoplasm LUNG Stroke Father Essential hypertension Heart disease Hyperlipidemia Sister No problems noted. Sister No problems noted. Brother Heart disease DOUBLE BYPASS AGE 48 (NON SMOKER) Hyperlipidemia Grandfather Personal history of malignant neoplasm LUNG Grandfather No problems noted. Grandmother Heart disease Myocardial infarction Grandmother Diabetes Son No problems noted. Son Depression Daughter Depression Social History Smoking/Tobacco Use Status: Former Tobacco Use Smoking risk assessment performed?: Yes Alcohol Intake: never Drug use: Never Substance use type: does not use Do you feel safe at home: Yes Do you feel safe in your relationship?: Yes Time Spent with Patient Time Spent with Patient: <45 minutes Time was spent: preparing to see the patient(eg.review tests), obtaining and/or reviewing separately otained hiistory, ordering medications,tests, procedures, referring, communicating with other health transitional care manager, indepentently interpreting results and counseling the patient
--- NOTE | 2022-10-22 13:49 | PDOC.CMDIS ---
- If Service Date Differs Date of service: 10/22/22 Time of Service: 13:49 LACE Index Scoring Tool - Questions: Length of Stay (in days): 1 Acuity (Admit via E.D.?): Yes Comorbidities: Any Tumor (Benign neoplasm of kidney) E.D. Visits: 4 - Answers: Total Score: 10 Risk of Readmission: High Risk Care Management Discharge Reason for Hospitalization: Abdominal Pain Discharge Plan: Benita is discharged home via private vehicle with her friend. She will follow up with community providers and discharge plan of care as prescribed. Plan to follow up with Primary Care on 10/29/22 and Surgical on 11/05/22, as scheduled. No new services are ordered. Patient/Family Education Needs: Review discharge instructions and plan to follow up with community providers. Discuss ask me three.
--- NOTE | 2022-10-22 15:53 | CHAPLAIN ---
Benita told me she's being discharged this afternoon. She thanked me for the Rosary beads I gave her during her last admission. She said she will be having further tests as an outpatient to determine the cause of her pain.
== END 2022-10-22 15:22 | disposition home or self-care (01) ==
LOC: ER 16:10 → MS 23:52
PROVIDERS: Admitting Provider Surgery; Emergency Provider Physician Assistant; PCP Nurse Practitioner Family; Visit Provider Surgery
DX: R10.9 Unspecified abdominal pain (principal); R07.89 Other chest pain; K57.30 Diverticulosis of large intestine without perforation or abscess without bleeding; R94.31 Abnormal electrocardiogram [ECG] [EKG]; R09.02 Hypoxemia; Z79.899 Other long term (current) drug therapy; Z20.822 Contact with and (suspected) exposure to COVID-19; F31.9 Bipolar disorder, unspecified; E11.9 Type 2 diabetes mellitus without complications; G43.909 Migraine, unspecified, not intractable, without status migrainosus; I10 Essential (primary) hypertension; K21.00 Gastro-esophageal reflux disease with esophagitis, without bleeding; E78.5 Hyperlipidemia, unspecified; E03.9 Hypothyroidism, unspecified
CPT/HCPCS: 36415; 71275; 74177; 80053; 83690; 87635; 93005; 96374; 96375; 96376; 99222; 99285; 81003; 84484; 85025; 93010; G0378; J0131; J3010; J3490

== ENCOUNTER 2022-11-01 17:30 | Outpatient (REF) | payer MEDICARE, MEDICAID, SELFPAY ==
[2022-11-03 12:33] LABS: Campylobacter PCR Negative (Negative); Salmonella PCR Negative (Negative); Shiga Toxin PCR Negative (Negative); Shigella/Enteroinvasive Ecoli Negative (Negative)
== END 2022-11-01 17:31 | disposition home or self-care (01) ==
LOC: LBN 17:30
PROVIDERS: PCP Nurse Practitioner Family; Visit Provider Nurse Practitioner Family
DX: R19.7 Diarrhea, unspecified (principal)
CPT/HCPCS: 87329; 87505

== ENCOUNTER → 2022-11-05 10:32 | Outpatient (BNVA) | payer MEDICARE, MEDICAID, SELFPAY | PROVIDERS: PCP Nurse Practitioner Family; Referring Provider Nurse Practitioner Family; Visit Provider Surgery | DX: K57.32 Diverticulitis of large intestine without perforation or abscess without bleeding (principal); F31.9 Bipolar disorder, unspecified; E11.9 Type 2 diabetes mellitus without complications; I10 Essential (primary) hypertension | CPT/HCPCS: 99213; 99214 ==

== ENCOUNTER 2022-11-17 09:02 | Day surgery (SDC) | payer MEDICARE, MEDICAID, SELFPAY ==
[2022-11-17 09:29] VITALS: BP 160/98; PULSE 104; RESP 20; TEMP 36.5; O2SAT 92
[2022-11-17] MEDS: Lactated Ringers 1,000 ML 80 ML IV (09:40)
--- NOTE | 2022-11-17 10:34 | ANES.PREOP_ITS ---
General Info Date of Service Date Performed: 11/17/22 Height: 5 ft 4 in Weight: 76.6 kg Body Mass Index (BMI): 29.0 Surgical Procedure: Operation Date: 11/17/22 11:35 Proposed Procedure Side Surgeon p Colonoscopy Sivakumar Orozco MD Meds Allergies and Home Medications Allergies Allergy/AdvReac Type Severity Reaction Status Date / Time Penicillins Allergy Swelling/Ed Verified 11/17/22 09:22 dilia latex AdvReac Severe Skin Rash Verified 11/17/22 09:22 azithromycin [From Zithromax] AdvReac headache, Verified 11/17/22 09:22 hearing loss,double vision, DAVILA ciprofloxacin [From Cipro] AdvReac Dizziness/L Verified 11/17/22 09:22 ightheade codeine AdvReac GI upset Verified 11/17/22 09:22 Sulfa (Sulfonamide AdvReac anxious Verified 11/17/22 09:22 Antibiotics) Home Medication Medication Instructions Recorded magnesium chloride 71.5 mg 2 tab PO DAILY #60 tab-caps 04/11/14 (magnesium chloride) tablet,delayed release (Slow-Mag) lansoprazole 30 mg capsule,delayed 30 mg PO DAILY Cramer's 12/11/21 release oesophagus/GERD #90 caps cetirizine 10 mg tablet 10 mg PO DAILY #90 tabs 01/01/22 bupropion HCl 300 mg 24 hr tablet, 300 mg PO DAILY 02/10/22 extended release lamotrigine 200 mg tablet 200 mg PO HS 02/10/22 multivitamin-ferrous 1 tab PO DAILY 02/10/22 fumarate-folic acid 18 mg-400 mcg tablet sertraline 100 mg tablet 150 mg PO DAILY 02/10/22 ondansetron HCl 4 mg tablet 4 - 8 mg PO TID PRN nausea and 11/01/22 vomiting #60 tabs qrweqqlugd-cqeiaqoswsowk-rsuuzszt 1 cap PO DAILY PRN headache #4 caps 11/03/22 50 mg-300 mg-40 mg capsule bisacodyl 5 mg tablet,delayed 5 mg PO ONCE colonscopy bowel prep 11/05/22 release (Dulcolax (bisacodyl)) #4 tabs lorazepam 1 mg tablet 3 mg PO DAILY PRN 11/05/22 lurasidone 120 mg tablet (Latuda) 120 mg PO DAILY 11/05/22 polyethylene glycol 3350 17 238 g PO ONCE colonoscopy prep 11/05/22 gram/dose oral powder #238 grams Current Visit Medications: Current Medications Generic Name Dose Route Start Last Admin Trade Name Elisa PRN Reason Stop Dose Admin Ringer's Solution 1,000 mls @ 80 mls/hr 11/17/22 06:00 11/17/22 09:40 IV 12/16/22 23:59 80 mls/hr INFUSION AMELIA Administration IV Miscellaneous Supplies 1 each 11/17/22 06:00 Iv Access IV 12/16/22 23:59 DIRECTED AMELIA Sodium Chloride 0 ml 11/17/22 06:00 Normal Saline Flush 10 Ml Syr IV 12/16/22 23:59 PRN PRN Sodium Chloride 0 ml 11/17/22 06:00 Normal Saline 10 Ml Vial IJ 12/16/22 23:59 DIRECTED PRN Sterile Water 0 ml 11/17/22 06:00 Water,Injection,Sterile 10 Ml Vial IJ 12/16/22 23:59 DIRECTED PRN PFSH Active Problems Active Problems: Problem Status Onset Code Hyperlipidemia Glaucoma Gastroesophageal reflux disease with esophagitis K21.0 Bipolar I disorder F31.9 Allergic rhinitis J30.9 Migraine G43.909 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 denies Diverticulitis of sigmoid colon Essential hypertension TMJ (temporomandibular joint disorder) Medical History Comments:: Pt. states her sister woke up during her colonoscopy Surgical History Surgical History History of bilateral ligation of fallopian tubes History of esophagogastroduodenoscopy History of total vaginal hysterectomy (TVH) (07/03/15) With cystoscopy and rectocele repair S/P BSO (bilateral salpingo-oophorectomy) (07/03/15) S/P cholecystectomy Status post foot surgery Tobacco Smoking/Tobacco Use Status: Former Tobacco Use Alcohol Alcohol Intake: never Substance Use Substance use: Never Substance use type: does not use Vital Signs and Lab Results Vital Signs Most Recent Vital Signs in EMR: Most Recent Vital Signs Temp Pulse Resp BP Pulse Ox 36.5 C 104 H 20 160/98 H 92 11/17/22 09:29 11/17/22 09:29 11/17/22 09:29 11/17/22 09:29 11/17/22 09:29 Lab Results Blood Type / Crossmatch: No Data to Display Complete Blood Count: White Blood Count 5.01 10^3/uL (4.4-10.8) 10/22/22 06:15 Red Blood Count 4.53 10^6/uL (3.93-5.22) 10/22/22 06:15 Hemoglobin 14.3 g/dL (11.2-15.7) 10/22/22 06:15 Hematocrit 43.7 % (36.0-46.0) 10/22/22 06:15 Platelet Count 159 10^3/uL (130-400) 10/22/22 06:15 Complete Metabolic Panel: Sodium 142 mmol/L (136-145) 10/22/22 06:15 Potassium 3.5 mmol/L (3.5-5.1) 10/22/22 06:15 Chloride 104 mmol/L (98-107) 10/22/22 06:15 Carbon Dioxide 26.5 mmol/L (21.0-32.0) 10/22/22 06:15 BUN 6 mg/dL (7-18) L 10/22/22 06:15 Creatinine 1.0 mg/dL (0.55-1.02) 10/22/22 06:15 Est GFR (CKD-EPI 2020) 62.52 (mL/min/1.73m2) 10/22/22 06:15 Calcium 8.8 mg/dL (8.5-10.1) 10/22/22 06:15 Albumin 4.0 g/dL (3.4-5.0) 10/22/22 06:15 Glucose 80 mg/dL (74-106) 10/22/22 06:15 Liver Function Panel: Alanine Aminotransferase (ALT/SGPT) 23 U/L (14-59) 10/22/22 06: 15 Aspartate Amino Transf (AST/SGOT) 23 U/L (15-37) 10/22/22 06:15 Coagulation Panel: No Data to Display Cardiac Panel: Troponin I < 50 ng/L (<or=60) 10/21/22 Arterial Blood Gas: No Data to Display Venous Blood Gas: No Data to Display Pancreas Panel: Lipase 33 U/L (16-77) 10/21/22 16:10 Thyroid Panel: No Data to Display Infectious Disease: Coronavirus (COVID-19)(PCR) Negative (Negative) 10/21/22 23:20 Coronavirus 2019 Source Nasal/Nares 10/21/22 23:20 Blood Cultures: No Data to Display Toxicology Panel: No Data to Display Imaging and Studies Imaging and Studies Study information below may be from another EMR and interpreted by another provider. Please see original notes in EMR for more complete details. EKG Summary: EKG PATIENT NAME: Benita Jenkins #: [id number] ORDERING PROVIDER: Dennis Willis M.D. PRIMARY CARE PROVIDER:DIO WHIPPLE NP DATE/TIME OF SERVICE: 10/21/22 1600 : 1955PERFORMING LOCATION: [place] APPROVED REPORT Exam: Resting ECG Reason for Exam: chest pressure Patient Location: E HR:75 bpm ECG Measurements Heart Rate 75 AXIS UT 155 P 33 QRSd 98 QRS -10 QT 404 T32 QTc 452 Conclusion Sinus rhythm...normal P axis, V-rate 60- 99 Nonspecific T abnormalities, anterior leads...T <-0.10mV, V2-V4 Narrow complex normal sinus rhythm at a rate of 75. Left axis deviation no signs of LVH based on voltage criteria. Inferior T wave flattening leads III and aVF. T wave inversions V2 V3. No ST segment abnormalities. Intervals within normal limits. No prior for comparison. No acute injury pattern. <Electronically signed by Dennis Willis M.D. in [place]> E-Sign Date: 10/21/22 E-Sign Time: 1605 ADDENDUM APPROVED REPORT Exam: Resting ECG Reason for Exam: chest pressure Patient Location: E HR:75 bpm ECG Measurements Heart Rate 75 AXIS UT 155 P 33 QRSd 98 QRS -10 QT 404 T32 QTc 452 Conclusion Sinus rhythm...normal P axis, V-rate 60- 99 Nonspecific T abnormalities, anterior leads...T <-0.10mV, V2-V4 Narrow complex normal sinus rhythm at a rate of 75. Left axis deviation no signs of LVH based on voltage criteria. Inferior T wave flattening leads III and aVF. T wave inversions V2 V3. No ST segment abnormalities. Intervals within normal limits. No prior for comparison. No acute injury pattern. I have reviewed and I agree with the emergency room physician's ECG interpretation. Electronically signed by: <Electronically signed by Lynne Cope M.D. in [place]> 10/22/22 0852 Cosigned by: Anesthesia Assessment and Plan Anesthesia History Personal History: No History of Anesthesia Complications Family History: Other Exercise Tolerance Exercise Tolerance: Metabolic Equivalents>4 Pertinent Negatives Pertinent Negatives: No Symptoms of GERD, No Major Cardiovascular Symptoms or Complaints, No Major Pulmonary Symptoms or Complaints and No History of CVA/TIA Cardiac & Pulmonary Exam Cardiac Exam: Normal S1/S2 Heart Sounds Pulmonary Exam: Clear Bilateral Breath Sounds Implantable Cardiac Device Does patient have a Pacemaker or an ICD?: No Airway Exam Known Difficult Airway: No Mallampati Class: 2 Mouth Opening: Normal (> 3cm) Thyromental Distance: Greater than 3 cm Neck Range of Motion: Full ROM Neck Circumference: Normal Teeth Condition: Edentulous ASA Classification ASA Score: ASA 2 Emergency Case?: No NPO Status NPO Status: NPO Clears >2 hours, Solids >8 hours Anesthesia Plan Resuscitation Status: Full Code Anesthesia Technique: General Anesthesia Airway Planned: Natural Airway Monitors Used: Standard Monitors
[2022-11-17 10:36] VITALS: BMI 29.0
--- NOTE | 2022-11-17 10:38 | ANES.PREOP_ITS ---
General Info Date of Service Date Performed: 11/17/22 Height: 5 ft 4 in Weight: 76.6 kg Body Mass Index (BMI): 29.0 Surgical Procedure: Operation Date: 11/17/22 11:35 Proposed Procedure Side Surgeon p Colonoscopy Sivakumar Orozco MD Meds Allergies and Home Medications Allergies Allergy/AdvReac Type Severity Reaction Status Date / Time Penicillins Allergy Swelling/Ed Verified 11/17/22 09:22 dilia latex AdvReac Severe Skin Rash Verified 11/17/22 09:22 azithromycin [From Zithromax] AdvReac headache, Verified 11/17/22 09:22 hearing loss,double vision, DAVILA ciprofloxacin [From Cipro] AdvReac Dizziness/L Verified 11/17/22 09:22 ightheade codeine AdvReac GI upset Verified 11/17/22 09:22 Sulfa (Sulfonamide AdvReac anxious Verified 11/17/22 09:22 Antibiotics) Home Medication Medication Instructions Recorded magnesium chloride 71.5 mg 2 tab PO DAILY #60 tab-caps 04/11/14 (magnesium chloride) tablet,delayed release (Slow-Mag) lansoprazole 30 mg capsule,delayed 30 mg PO DAILY Cramer's 12/11/21 release oesophagus/GERD #90 caps cetirizine 10 mg tablet 10 mg PO DAILY #90 tabs 01/01/22 bupropion HCl 300 mg 24 hr tablet, 300 mg PO DAILY 02/10/22 extended release lamotrigine 200 mg tablet 200 mg PO HS 02/10/22 multivitamin-ferrous 1 tab PO DAILY 02/10/22 fumarate-folic acid 18 mg-400 mcg tablet sertraline 100 mg tablet 150 mg PO DAILY 02/10/22 ondansetron HCl 4 mg tablet 4 - 8 mg PO TID PRN nausea and 11/01/22 vomiting #60 tabs tdtgbxymsp-pfvzwjfzixzgh-tcargale 1 cap PO DAILY PRN headache #4 caps 11/03/22 50 mg-300 mg-40 mg capsule bisacodyl 5 mg tablet,delayed 5 mg PO ONCE colonscopy bowel prep 11/05/22 release (Dulcolax (bisacodyl)) #4 tabs lorazepam 1 mg tablet 3 mg PO DAILY PRN 11/05/22 lurasidone 120 mg tablet (Latuda) 120 mg PO DAILY 11/05/22 polyethylene glycol 3350 17 238 g PO ONCE colonoscopy prep 11/05/22 gram/dose oral powder #238 grams Current Visit Medications: Current Medications Generic Name Dose Route Start Last Admin Trade Name Elisa PRN Reason Stop Dose Admin Ringer's Solution 1,000 mls @ 80 mls/hr 11/17/22 06:00 11/17/22 09:40 IV 12/16/22 23:59 80 mls/hr INFUSION AMELIA Administration IV Miscellaneous Supplies 1 each 11/17/22 06:00 Iv Access IV 12/16/22 23:59 DIRECTED AMELIA Sodium Chloride 0 ml 11/17/22 06:00 Normal Saline Flush 10 Ml Syr IV 12/16/22 23:59 PRN PRN Sodium Chloride 0 ml 11/17/22 06:00 Normal Saline 10 Ml Vial IJ 12/16/22 23:59 DIRECTED PRN Sterile Water 0 ml 11/17/22 06:00 Water,Injection,Sterile 10 Ml Vial IJ 12/16/22 23:59 DIRECTED PRN PFSH Active Problems Active Problems: Problem Status Onset Code Hyperlipidemia Glaucoma Gastroesophageal reflux disease with esophagitis K21.0 Bipolar I disorder F31.9 Allergic rhinitis J30.9 Migraine G43.909 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 denies Diverticulitis of sigmoid colon Essential hypertension TMJ (temporomandibular joint disorder) Medical History Comments:: Pt. states her sister woke up during her colonoscopy Surgical History Surgical History History of bilateral ligation of fallopian tubes History of esophagogastroduodenoscopy History of total vaginal hysterectomy (TVH) (07/03/15) With cystoscopy and rectocele repair S/P BSO (bilateral salpingo-oophorectomy) (07/03/15) S/P cholecystectomy Status post foot surgery Tobacco Smoking/Tobacco Use Status: Former Tobacco Use Alcohol Alcohol Intake: never Substance Use Substance use: Never Substance use type: does not use Vital Signs and Lab Results Vital Signs Most Recent Vital Signs in EMR: Most Recent Vital Signs Temp Pulse Resp BP Pulse Ox 36.5 C 104 H 20 160/98 H 92 11/17/22 09:29 11/17/22 09:29 11/17/22 09:29 11/17/22 09:29 11/17/22 09:29 Lab Results Blood Type / Crossmatch: No Data to Display Complete Blood Count: White Blood Count 5.01 10^3/uL (4.4-10.8) 10/22/22 06:15 Red Blood Count 4.53 10^6/uL (3.93-5.22) 10/22/22 06:15 Hemoglobin 14.3 g/dL (11.2-15.7) 10/22/22 06:15 Hematocrit 43.7 % (36.0-46.0) 10/22/22 06:15 Platelet Count 159 10^3/uL (130-400) 10/22/22 06:15 Complete Metabolic Panel: Sodium 142 mmol/L (136-145) 10/22/22 06:15 Potassium 3.5 mmol/L (3.5-5.1) 10/22/22 06:15 Chloride 104 mmol/L (98-107) 10/22/22 06:15 Carbon Dioxide 26.5 mmol/L (21.0-32.0) 10/22/22 06:15 BUN 6 mg/dL (7-18) L 10/22/22 06:15 Creatinine 1.0 mg/dL (0.55-1.02) 10/22/22 06:15 Est GFR (CKD-EPI 2020) 62.52 (mL/min/1.73m2) 10/22/22 06:15 Calcium 8.8 mg/dL (8.5-10.1) 10/22/22 06:15 Albumin 4.0 g/dL (3.4-5.0) 10/22/22 06:15 Glucose 80 mg/dL (74-106) 10/22/22 06:15 Liver Function Panel: Alanine Aminotransferase (ALT/SGPT) 23 U/L (14-59) 10/22/22 06: 15 Aspartate Amino Transf (AST/SGOT) 23 U/L (15-37) 10/22/22 06:15 Coagulation Panel: No Data to Display Cardiac Panel: Troponin I < 50 ng/L (<or=60) 10/21/22 Arterial Blood Gas: No Data to Display Venous Blood Gas: No Data to Display Pancreas Panel: Lipase 33 U/L (16-77) 10/21/22 16:10 Thyroid Panel: No Data to Display Infectious Disease: Coronavirus (COVID-19)(PCR) Negative (Negative) 10/21/22 23:20 Coronavirus 2019 Source Nasal/Nares 10/21/22 23:20 Blood Cultures: No Data to Display Toxicology Panel: No Data to Display Imaging and Studies Imaging and Studies Study information below may be from another EMR and interpreted by another provider. Please see original notes in EMR for more complete details. EKG Summary: EKG PATIENT NAME: Benita Jenkins #: [id number] ORDERING PROVIDER: Dennis Willis M.D. PRIMARY CARE PROVIDER:DIO WHIPPLE NP DATE/TIME OF SERVICE: 10/21/22 1600 : 1955PERFORMING LOCATION: [facility] APPROVED REPORT Exam: Resting ECG Reason for Exam: chest pressure Patient Location: E HR:75 bpm ECG Measurements Heart Rate 75 AXIS SC 155 P 33 QRSd 98 QRS -10 QT 404 T32 QTc 452 Conclusion Sinus rhythm...normal P axis, V-rate 60- 99 Nonspecific T abnormalities, anterior leads...T <-0.10mV, V2-V4 Narrow complex normal sinus rhythm at a rate of 75. Left axis deviation no signs of LVH based on voltage criteria. Inferior T wave flattening leads III and aVF. T wave inversions V2 V3. No ST segment abnormalities. Intervals within normal limits. No prior for comparison. No acute injury pattern. <Electronically signed by Dennis Willis M.D. in [place]> E-Sign Date: 10/21/22 E-Sign Time: 1605 ADDENDUM APPROVED REPORT Exam: Resting ECG Reason for Exam: chest pressure Patient Location: E HR:75 bpm ECG Measurements Heart Rate 75 AXIS SC 155 P 33 QRSd 98 QRS -10 QT 404 T32 QTc 452 Conclusion Sinus rhythm...normal P axis, V-rate 60- 99 Nonspecific T abnormalities, anterior leads...T <-0.10mV, V2-V4 Narrow complex normal sinus rhythm at a rate of 75. Left axis deviation no signs of LVH based on voltage criteria. Inferior T wave flattening leads III and aVF. T wave inversions V2 V3. No ST segment abnormalities. Intervals within normal limits. No prior for comparison. No acute injury pattern. I have reviewed and I agree with the emergency room physician's ECG interpretation. Electronically signed by: <Electronically signed by Lynne Cope M.D. in [facility]> 10/22/22 0852 Cosigned by: Anesthesia Assessment and Plan Anesthesia History Personal History: No History of Anesthesia Complications Family History: No Family History of Anesthesia Complications and Other Exercise Tolerance Exercise Tolerance: Metabolic Equivalents>4 Pertinent Negatives Pertinent Negatives: No Symptoms of GERD Cardiac & Pulmonary Exam Cardiac Exam: Normal S1/S2 Heart Sounds Pulmonary Exam: Clear Bilateral Breath Sounds Implantable Cardiac Device Does patient have a Pacemaker or an ICD?: No Airway Exam Known Difficult Airway: No Mallampati Class: 2 Mouth Opening: Normal (> 3cm) Thyromental Distance: Greater than 3 cm Neck Range of Motion: Full ROM Neck Circumference: Normal Teeth Condition: Normal Dentition, Removable Dentures/Plates Upper and Removable Dentures/Plates Lower ASA Classification ASA Score: ASA 2 Emergency Case?: No NPO Status NPO Status: NPO Clears >2 hours, Solids >8 hours Anesthesia Plan Resuscitation Status: Full Code Anesthesia Technique: General Anesthesia Airway Planned: Natural Airway Monitors Used: Standard Monitors
--- NOTE | 2022-11-17 11:52 | BOWEL_PTH ---
PATIENT: Benita Simmons LOC: [facility] U#:[id number] AGE/SX: 67/F ROOM: RE11/17/[address]: Sivakumar Orozco : 1955 BED: DIS: 11/17/2022 SPEC #: [id number] RECD: 11/17/22 13:05 STATUS: BRISEYDA [facility] #: [id number] OLEG: 11/17/22 11:[address]: Sivakumar Orozco DEPT: Surgical Specimen RECD BY: Kathleen Tsang ENTERED: 11/17/22 13:06 SP TYPE: Bowel OTHR DR: ELLA Lawson Tissues: 1 - BIOPSY BOWEL Procedures: GROSS AND MICRO LEVEL 4 Comments: [id number]
[2022-11-17 12:02] VITALS: BP 110/61; PULSE 63; RESP 16; TEMP 36.4; O2SAT 93
--- NOTE | 2022-11-17 12:14 | W.COLOREPORT ---
Date of service: 11/17/22 Time of Service: 12:14 Colonoscopy Report Procedure Description: Procedures performed: 1. Colonoscopy with cold forceps Preoperative diagnosis: Chronic diverticulitis Postoperative diagnosis: Chronic active diverticulitis, sigmoid colon stricture and fibrosis, incomplete colonoscopy Surgeon: Isabel Orozco Anesthesia: Sathish/Kimberly Indication for procedure: Patient is a 67-year-old woman with worsening abdominal discomfort, cramping and difficulty going to the bathroom who does not have a family history of colon cancer. Prior colonoscopies have shown diverticulosis. She has had multiple attacks of diverticulitis in the sigmoid colon over the last few years. She has at least 5 CT scans within the last 2 years all showing active disease. Sigmoid colon thickening/narrowing has also been apparent on CT scan. She reportedly has malrotation as well. Findings: There is a severe area of stricture and fibrosis that is not passable with the colonoscope in the proximal sigmoid colon at approximately 30-40 cm. The sigmoid colon leading up to this region is visibly inflamed with a chronic appearance to it - likely chronic diverticulitis. SCAD is within the differential diagnosis. Cold forceps biopsies were taken. The stricture and angulation prevented the colonoscopy from being completed. Lesions of the right, transverse and descending colons could be present. Surveillance/follow-up recommendations: The patient's acute symptoms are certainly related to this area of her colon. Secondly, her chronic issues of bloating, constipation, pain when she goes to the bathroom as well as sometimes loose stools is also going to be related to this sigmoid fibrosis and stricture. I recommend surgical resection for definitive management. A laparoscopic [place]'s procedure should be considered simultaneously. Complications: None Blood loss: Minimal Specimens:?? YES Quality of Prep:?? Good Procedure in detail: Written consent was obtained from the patient who was in agreement with the risks, benefits and indications of the procedure.? We went to the endoscopy suite and laid the patient in left lateral decubitus position.? Anesthesia was administered which was tolerated well.? A timeout was performed and when we are all in agreement we began the procedure. Digital rectal exam and visual examination was performed and within normal limits.? A well?lubricated colonoscope was advanced without difficulty all the way into the sigmoid colon where severe fibrosis, stenosis and angulation prevented any more forward?movement of the colonoscope. Multiple positioning attempts were made including prone, on the patient's back, and multiple pressure strategies were attempted. It was determined that there is no safe way to navigate this difficult region. I took biopsies as noted above. The scope was then removed and the patient tolerated the procedure well and was then taken back to the PACU in hemodynamically stable condition.
[2022-11-17 12:35] VITALS: BP 143/74; PULSE 70; RESP 18; TEMP 36.6; O2SAT 93
--- NOTE | 2022-11-17 13:00 | W.ANESPOSTOP ---
Postoperative Evaluation Date, Time and Location Date Performed: 11/17/22 Time Performed: 13:01 Patient Location: Day Surgery Unit Vital Signs Most Recent Imported Vital Signs: Most Recent Vital Signs Temp Pulse Resp BP Pulse Ox 36.5 C 104 H 20 160/98 H 92 11/17/22 09:29 11/17/22 09:29 11/17/22 09:29 11/17/22 09:29 11/17/22 09:29 Pain Score Most Recent Pain Score: Most Recent Pain Score Pain Level 0 11/17/22 09:29 Assessment Mental Status: Awake (Alert & Oriented to Patient Baseline) Airway and Respiratory Function: Patent airway with normal (patient baseline) respiratory exam Cardiovascular Function: Hemodynamically Stable Hydration Status: Adequately Hydrated Nausea & Vomiting: No Nausea or Vomiting Pain: Pt. Denies Any Pain Peripheral Nerve Block: Patient did not receive a nerve block
== END 2022-11-17 13:10 | disposition home or self-care (01) ==
PROVIDERS: PCP Nurse Practitioner Family; Visit Provider Student in an Organized Health Care Education/Training Program
PROC: 0DJD8ZZ Inspection of Lower Intestinal Tract, Via Natural or Artificial Opening Endoscopic (ICD-10-PCS; CPT 45378; principal; 2022-11-17 11:30)
DX: K57.32 Diverticulitis of large intestine without perforation or abscess without bleeding (principal); K63.89 Other specified diseases of intestine
CPT/HCPCS: 45331; 88305

== ENCOUNTER 2022-12-22 01:50 | Outpatient (CLI) | payer MEDICARE, MEDICAID, SELFPAY ==
--- NOTE | 2022-12-22 10:24 | DI.RAD_ITS ---
Exam(s) RF BARIUM ENEMA EXAM: RF BARIUM ENEMA CLINICAL HISTORY: Incomplete colonoscopy,Diverticular stricture,diverticulitis,k56.249 COMPARISON: No exams were available for comparison TECHNIQUE: 2D and realtime digital imaging was performed. CONTRAST MATERIAL: Barium contrast was administered. FINDINGS: Preliminary film shows a right convex thoracolumbar scoliosis. There are surgical clips in the right upper quadrant of the abdomen. The bowel gas pattern is nonspecific. No evidence of obstruction is seen. Degenerative changes are seen in the lumbar spine in the hips bilaterally according to the pa tient's age. The colon demonstrates no structural abnormalities including structure,dilation, adhesion, or mass. Diverticula are seen scattered throughout the colon. The cecum and appendix cross the midline and ar e located in the left lower quadrant. IMPRESSION: Diverticulosis of the colon. RADIATION DOSE DELIVERED: vivek Martinez=163 mGy
== END 2022-12-22 02:10 ==
LOC: DI 01:54
PROVIDERS: PCP Nurse Practitioner Family; Visit Provider Surgery
DX: F31.9 Bipolar disorder, unspecified (principal); K56.699 Other intestinal obstruction unspecified as to partial versus complete obstruction; K57.32 Diverticulitis of large intestine without perforation or abscess without bleeding; K21.00 Gastro-esophageal reflux disease with esophagitis, without bleeding
CPT/HCPCS: 74270

== ENCOUNTER 2023-03-08 10:31 | Outpatient (CLI) | payer MEDICARE, MEDICAID, SELFPAY ==
--- NOTE | 2023-03-08 10:30 | RT.EKG_ITS ---
APPROVED REPORT Exam: Resting ECG Reason for Exam: chest discomfort Patient Location: O HR:78 bpm ECG Measurements Heart Rate 78 AXIS VA 147 P 47 QRSd 99 QRS 44 QT 381 T 61 QTc 434 Conclusion Sinus rhythm...normal P axis, V-rate 50- 99 Borderline T abnormalities, anterior leads...T flat or neg, V2-V4
== END 2023-03-08 10:32 | disposition home or self-care (01) ==
LOC: DI.CM 10:31
PROVIDERS: PCP Nurse Practitioner Family; Visit Provider Nurse Practitioner Family
DX: R07.89 Other chest pain (principal)
CPT/HCPCS: 93010

== ENCOUNTER 2023-03-08 11:27 | Outpatient (REF) | payer MEDICARE, MEDICAID, SELFPAY ==
[2023-03-08 17:49] LABS: Abs Immature Grans 0.13 10^3/uL (0.0-0.06); Absolute Basophil Count 0.09 10^3/uL (0.0-0.2); Absolute Eosinophil Count 0.28 10^3/uL (0.0-0.7); Absolute Lymphocyte Count 1.79 10^3/uL (1.2-3.4); Absolute Monocyte Count 0.63 10^3/uL (0.1-0.8); Absolute Neutrophil Count 4.95 10^3/uL (1.2-6.7); Basophils % 1.1; Eosinophils % 3.6; HCT 46.6 % (36.0-46.0); HGB 15.8 g/dL (11.2-15.7); Immature Grans % 1.7; Lymphocytes % 22.7; MCH 31.7 pg (27.0-33.0); MCHC 33.9 % (32.0-36.0); MCV 93 fL (80-95); MPV 10.2 fL (8.0-11.0); Neutrophils % 62.9; Platelet Count 189 10^3/uL (130-400); RBC 4.99 10^6/uL (3.93-5.22); RDW 13.2 % (11.7-14.6); RDW-SD 44.8 fL; WBC 7.87 10^3/uL (4.4-10.8)
[2023-03-08 18:00] LABS: ALT 26 U/L (14-59); AST 17 U/L (15-37); Albumin 4.3 g/dL (3.4-5.0); Alkaline Phosphatase 70 U/L (46-116); Anion Gap 12.8 mmol/L (3-11); BUN 16 mg/dL (7-18); Bilirubin, Total 0.4 mg/dL (0.2-1.0); CO2 23.2 mmol/L (21.0-32.0); CREATININE 1.1 mg/dL (0.55-1.02); Calcium 8.9 mg/dL (8.5-10.1); Chloride 103 mmol/L (98-107); Estimated GFR 55.42 (mL/min/1.73m2); Glucose 127 mg/dL (74-106); Potassium 4.5 mmol/L (3.5-5.1); Sodium 139 mmol/L (136-145)
[2023-03-08 18:22] LABS: Bilirubin Small (Negative); Blood Negative (Negative); Clarity Clear (Clear); Glucose Negative (Negative); Ketones Negative (Negative); Leukocyte Esterase Trace (Negative); Nitrite Negative (Negative); Urobilinogen 0.2 mg/dL (Up to 0.2)
[2023-03-08 18:32] LABS: Bacteria Rare HPF (Negative); C & S Indicated? No/Sq. Contamination; Casts 0-2 Hyaline LPF (Negative); Crystals Negative HPF (Negative); Epithelial Cells Moderate HPF (Negative); Mucus Trace (Negative); Other Cells Rare Transitional (Negative); RBC Negative HPF (0-2); WBC 0-2 HPF (0-5)
== END 2023-03-08 11:28 | disposition home or self-care (01) ==
LOC: LBN 11:27
PROVIDERS: PCP Nurse Practitioner Family; Visit Provider Nurse Practitioner Family
DX: N39.0 Urinary tract infection, site not specified (principal)
CPT/HCPCS: 80053; 81003; 81015; 85025

== ENCOUNTER 2023-03-16 21:18 | Emergency (ER) | payer MEDICARE, MEDICAID, SELFPAY ==
[2023-03-16 21:26] VITALS: BP 128/98; PULSE 98; RESP 16; TEMP 36.7; O2SAT 95
[2023-03-16 22:00] VITALS: RESP 16
--- NOTE | 2023-03-16 22:00 | DI.CT_ITS ---
Exam(s) CT HEAD WO EXAM: CT HEAD WO CLINICAL HISTORY: headache, worsening. TECHNIQUE: Imaging Protocol: Axial computed tomography images with coronal and sagittal reformatted images were created and reviewed COMPARISON: No exams were available for comparison FINDINGS: There are no skull fractures. There is no fluid in the visualized paranasal sinuses. There is no evidence of intracranial hemorrhage, mass effect, or shift of midline structures. There are no extra-axial fluid collections. The ventricles are not enlarged or shifted and there is no blo od within the ventricular system nor within the basal cisterns. IMPRESSION: No acute intracranial findings on this noninfused CT scan of the brain. If clinically indicated follow-up MRI can be performed. RADIATION DOSE DELIVERED: 678.33mGy.cm Total DLP DATA REPOSITORY: All CT scans at this facility are submitted to the National Radiology Data Registry (NRDR) Dose Index Registry (DIR) with the [employer] ([employer]). RADIATION OPTIMIZATION: All CT scans at this facility use at least one of these dose optimization te chniques: automated exposure control; mA and/or kV adjustment per patient size (includes targeted exa ms where dose is matched to clinical indication); or iterative reconstruction.
[2023-03-16 22:52] LABS: Bilirubin Negative (Negative); Blood Negative (Negative); Clarity Clear (Clear); Glucose Negative (Negative); Ketones 80 mg/dL (Negative); Leukocyte Esterase Negative (Negative); Nitrite Negative (Negative); Specific Gravity 1.015 (1.005-1.025); Urobilinogen 0.2 mg/dL (Up to 0.2); pH 5.5 (5-8)
[2023-03-16] MEDS: Prochlorperazine 5 MG TAB PO (22:52)
--- NOTE | 2023-03-16 23:49 | DI.VRAD_ITS ---
PROCEDURE INFORMATION: Exam: CT Head Without Contrast Exam date and time: 03/16/2023 11:16 PM Age: 68 years old Clinical indication: Pain; Headache not specified; Additional info: Headache, worsening TECHNIQUE: Imaging protocol: Computed tomography of the head without contrast. Radiation optimization: All CT scans at this facility use at least one of these dose optimization techniques: automated exposure control; mA and/or kV adjustment per patient size (includes targeted exams where dose is matched to clinical indication); or iterative reconstruction. COMPARISON: No relevant prior studies available. FINDINGS: Brain: Mild volume loss No hemorrhage. Mild white matter disease. No mass effect. Cerebral ventricles: No ventriculomegaly. Paranasal sinuses: Visualized sinuses are unremarkable. No fluid levels. Mastoid air cells: Visualized mastoid air cells are well aerated. Bones/joints: Unremarkable. No acute fracture. Soft tissues: Unremarkable. IMPRESSION: No acute intracranial abnormality. Dictated and Authenticated by: Leandro Yip MD. Ordering:LORENZO Wang MD
--- NOTE | 2023-03-17 00:02 | ED.GENADUL_ITS ---
Discharge Plan Disposition Patient Disposition: Home Discharge Details Clinical Impression: Sinusitis, Medication reaction Primary Care Provider: Cathie Strange ED Provider: Kathleen Bartlett Home Meds and New Rx's Prescriptions: New cefixime 400 mg capsule 400 mg PO DAILY 10 Days Qty: 10 0RF prochlorperazine maleate [Compazine] 5 mg tablet 5 mg PO TID PRNQty: 10 0RF Continued ondansetron HCl 4 mg tablet 4 - 8 mg PO TID PRN (Reason: nausea and vomiting) Qty: 60 0RF rizatriptan [Maxalt-MANAGING CONSULTANT] 10 mg tablet,disintegrating 10 mg PO ONCE PRN (Reason: migraine headache) Qty: 14 2RF Rx Instructions: may repeat once after at least 2 hours levofloxacin 750 mg tablet 750 mg PO DAILY Qty: 7 0RF lansoprazole 30 mg capsule,delayed release(DR/EC) 30 mg PO DAILY Qty: 90 3RF polyethylene glycol 3350 17 gram/dose powder 238 g PO ONCE Qty: 238 0RF Rx Instructions: take per colonoscopy instructions bisacodyl [Dulcolax (bisacodyl)] 5 mg tablet,delayed release (DR/EC) 5 mg PO ONCE Qty: 4 0RF Rx Instructions: take per colonoscopy instructions cetirizine 10 mg tablet 10 mg PO DAILY Qty: 90 3RF loratadine [Claritin] 10 mg tablet 10 mg PO DAILY PRN (Reason: allergies) Qty: 90 3RF jmqucibvjnkg-amex-hvjde acid 18-400 mg-mcg Tablet 1 tab PO DAILY lamotrigine 200 mg tablet 200 mg PO HS Patient Comments: TAKE ONE TABLET BY MOUTH EVERY DAY. STOP MED IF RASH OCCURS sertraline 100 mg tablet 150 mg PO DAILY Patient Comments: TAKE ONE TABLET BY MOUTH EVERY DAY bupropion HCl 300 mg tablet extended release 24 hr 300 mg PO DAILY Patient Comments: TAKE ONE TABLET BY MOUTH EVERY DAY lurasidone [Latuda] 120 mg tablet 120 mg PO DAILY Patient Comments: TAKE ONE TABLET BY MOUTH EVERY DAY WITH MEALS WITH TWO 20MG TABLETS FOR TOTAL 160MG/DAY Rx Instructions: TAKE WITH FOOD Discharge Instructions Instructions: Sinusitis (ED) Additional Instructions: compazine as needed for nausea and vomiting stop the levaquin take the cefixime as prescribed follow-up with pcp return earlier with new or worsening complaints Referrals: Cathie Strange NP [Primary Care Provider] - Discharge Data Discharge Date/Time-TO BE ENTERED AT DEPARTURE: 03/17/23 00:11 Medical Decision Making 68-year-old female with multiple visits to this facility presents with vague complaints, she has a nonfocal neurological exam, she is ambulatory with steady gait, cranial nerves II through XII intact, GCS 15, urine does not show evidence of infection, she is slightly dehydrated, she was given fluids in the emergency department I did review her labs from 2 days prior to arrival and they are within normal limits, I also did a CT head which does not show evidence of acute abnormality She switched to cefotaxime, there is no clinical evidence of anaphylaxis Return precautions reviewed and patient expressed understanding Evaluated for approximately 2 hours with no acute findings, ambulatory with steady gait, nonfocal neurological exam CT head was reviewed and does not show evidence of acute abnormality Labs are reviewed from prior assessment HPI General Date/Time Provider Initiated Documentation: 03/16/23 21:51 . HPI Narrative: This 68-year-old female presents with report of feeling like she is having an adverse reaction to Levaquin. She states that she took a dose and half an hour later had difficulty hearing and seeing and she felt nauseous and vomited once. She had a headache for 3 days. She states that she is being treated for sinusitis which is why she is taking the Levaquin, she has been sick with sinus congestion for 5 weeks per patient. She denies any strength or sensation change. She denies any dizziness. She denies any falls or injuries. She denies any chest pain or shortness of breath. Related Data Home Medications Medication Instructions Recorded Confirmed bupropion HCl 300 mg 24 hr tablet, 300 mg PO DAILY 02/10/22 03/16/23 extended release lamotrigine 200 mg tablet 200 mg PO HS 02/10/22 03/16/23 multivitamin-ferrous 1 tab PO DAILY 02/10/22 03/16/23 fumarate-folic acid 18 mg-400 mcg tablet sertraline 100 mg tablet 150 mg PO DAILY 02/10/22 03/16/23 lurasidone 120 mg tablet (Latuda) 120 mg PO DAILY 11/05/22 03/16/23 lansoprazole 30 mg capsule,delayed 30 mg PO DAILY #90 caps 11/22/22 03/16/23 release bisacodyl 5 mg tablet,delayed 5 mg PO ONCE colonscopy bowel prep 11/29/22 03/16/23 release (Dulcolax (bisacodyl)) #4 tabs polyethylene glycol 3350 17 238 g PO ONCE colonoscopy prep 11/29/22 03/16/23 gram/dose oral powder #238 grams cetirizine 10 mg tablet 10 mg PO DAILY #90 tabs 12/15/22 03/16/23 cefixime 400 mg capsule 400 mg PO DAILY 10 days #10 caps 03/16/23 levofloxacin 750 mg tablet 750 mg PO DAILY #7 tabs 03/16/23 03/16/23 loratadine 10 mg tablet (Claritin) 10 mg PO DAILY PRN allergies #90 03/16/23 03/16/23 tabs ondansetron HCl 4 mg tablet 4 - 8 mg PO TID PRN nausea and 03/16/23 03/16/23 vomiting #60 tabs prochlorperazine maleate 5 mg 5 mg PO TID PRN #10 tabs 03/16/23 tablet (Compazine) rizatriptan 10 mg disintegrating 10 mg PO ONCE PRN migraine 03/16/23 03/16/23 tablet (Maxalt-MANAGING CONSULTANT) headache #14 tabs Previous Rx's Medication Instructions Recorded lansoprazole 30 mg capsule,delayed 30 mg PO DAILY #90 caps 11/22/22 release bisacodyl 5 mg tablet,delayed 5 mg PO ONCE colonscopy bowel prep 11/29/22 release (Dulcolax (bisacodyl)) #4 tabs polyethylene glycol 3350 17 238 g PO ONCE colonoscopy prep 11/29/22 gram/dose oral powder #238 grams cetirizine 10 mg tablet 10 mg PO DAILY #90 tabs 12/15/22 cefixime 400 mg capsule 400 mg PO DAILY 10 days #10 caps 03/16/23 levofloxacin 750 mg tablet 750 mg PO DAILY #7 tabs 03/16/23 loratadine 10 mg tablet (Claritin) 10 mg PO DAILY PRN allergies #90 03/16/23 tabs ondansetron HCl 4 mg tablet 4 - 8 mg PO TID PRN nausea and 03/16/23 vomiting #60 tabs prochlorperazine maleate 5 mg 5 mg PO TID PRN #10 tabs 03/16/23 tablet (Compazine) rizatriptan 10 mg disintegrating 10 mg PO ONCE PRN migraine 03/16/23 tablet (Maxalt-MANAGING CONSULTANT) headache #14 tabs Allergies Allergy/AdvReac Type Severity Reaction Status Date / Time Penicillins Allergy Swelling/Ed Verified 03/16/23 21:30 dilia latex AdvReac Severe Skin Rash Verified 03/16/23 21:30 azithromycin [From Zithromax] AdvReac headache, Verified 03/16/23 21:30 hearing loss,double vision, DAVILA ciprofloxacin [From Cipro] AdvReac Dizziness/L Verified 03/16/23 21:30 ightheade codeine AdvReac GI upset Verified 03/16/23 21:30 Sulfa (Sulfonamide AdvReac anxious Verified 03/16/23 21:30 Antibiotics) General Stated Complaint: GenMedical MARIAM: 3 PFSH All Active Problems (Updated 03/16/23 @ 23:59 by ANKUSH Magaña) Hyperlipidemia (Chronic) Glaucoma (Chronic) Gastroesophageal reflux disease with esophagitis (Chronic) Bipolar I disorder (Chronic) Allergic rhinitis (Chronic) Migraine (Chronic) Multiple cranial nerve palsy (Chronic) Abdominal pain (Chronic) Prediabetes (Chronic) Chronic diarrhea (Chronic) Colon stricture (Acute) Diverticular stricture (Acute) Diverticulitis large intestine (Acute) Sinusitis (Acute) Medication reaction (Acute) Medical History 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 denies Diverticulitis of sigmoid colon Essential hypertension TMJ (temporomandibular joint disorder) Surgical History History of bilateral ligation of fallopian tubes History of esophagogastroduodenoscopy History of total vaginal hysterectomy (TVH) (07/03/15) With cystoscopy and rectocele repair S/P BSO (bilateral salpingo-oophorectomy) (07/03/15) S/P cholecystectomy Status post foot surgery Family History Mother Stroke Lung cancer Hypertension Father Heart disease Hyperlipidemia Hypertension Brother Heart disease DOUBLE BYPASS AGE 48 (NON SMOKER) Hyperlipidemia Son Depression Daughter Depression Maternal Grandfather Lung cancer Maternal Grandmother Heart disease Myocardial infarction Paternal Grandfather No problems noted. Paternal Grandmother Diabetes Social History Smoking/Tobacco Use Status: Former Tobacco Use Quit Date: 09/05/77 Smoking risk assessment performed?: Yes Alcohol Intake: never Drug use: Never Substance use type: does not use Do you feel safe at home: Yes Do you feel safe in your relationship?: Yes Course Vital Signs Vital signs: Vital Signs Temperature 36.7 C 03/16/23 21:26 Pulse 98 H 03/16/23 21:26 Respiratory Rate 16 03/16/23 21:26 Blood Pressure 128/98 H 03/16/23 21:26 Pulse Oximetry 95 03/16/23 21:26 Temperature 36.7 C 03/16/23 21:26 Temperature Source Temporal Artery Scan 03/16/23 21:26 Pulse 98 H 03/16/23 21:26 Respiratory Rate 16 03/16/23 21:26 Blood Pressure 128/98 H 03/16/23 21:26 Blood Pressure Position Sitting 03/16/23 21:26 Pulse Oximetry 95 03/16/23 21:26 Oxygen Delivery Method Room Air 03/16/23 21:26 Oxygen Flow Rate 0 03/16/23 21:26 Pain Level 5 03/16/23 21:26 Lab/Test Results Lab/Test Results: Laboratory Tests Range/Units 03/16/23 22:35 Urine Color (Yellow) Yellow Urine Clarity (Clear) Clear Urine pH (5-8) 5.5 Ur Specific [place] (1.005-1.025) 1.015 Urine Protein (Negative) mg/dL Negative Urine Ketones (Negative) mg/dL 80 H Urine Blood (Negative) Negative Urine Nitrite (Negative) Negative Urine Bilirubin (Negative) Negative Urine Urobilinogen (Up to 0.2) mg/dL 0.2 Ur Leukocyte Esterase (Negative) Negative Urine Glucose (Negative) mg/dL Negative
== END 2023-03-17 00:11 | disposition home or self-care (01) ==
PROVIDERS: Emergency Provider Physician Assistant; PCP Nurse Practitioner Family
DX: R11.2 Nausea with vomiting, unspecified (principal); T36.8X5A Adverse effect of other systemic antibiotics, initial encounter; J01.90 Acute sinusitis, unspecified; Z87.891 Personal history of nicotine dependence; Y92.89 Other specified places as the place of occurrence of the external cause
CPT/HCPCS: 99284; 70450; 81003; 99283

== ENCOUNTER 2023-04-11 12:56 | Emergency (ER) | payer MEDICARE, MEDICAID, SELFPAY ==
[2023-04-11] VITALS (17 sets, daily range): BP systolic 110–165; BP diastolic 76–106; PULSE 86–99; RESP 20; TEMP 36.8; O2SAT 90–96
--- NOTE | 2023-04-11 13:00 | RT.EKG_ITS ---
APPROVED REPORT Exam: Resting ECG Reason for Exam: hypertension Patient Location: E HR:86 bpm ECG Measurements Heart Rate 86 AXIS WY 152 P 43 QRSd 94 QRS 5 QT 352 T 42 QTc 422 Conclusion Sinus rhythm...normal P axis, V-rate 60- 99
[2023-04-11] MEDS: LORazepam 2 MG/ML VIAL 1 MG IVP (13:50)
[2023-04-11] MEDS: Midazolam 2 MG/2 ML VIAL IVP (14:43)
[2023-04-11 14:57] LABS: Abs Immature Grans 0.07 10^3/uL (0.0-0.06); Absolute Basophil Count 0.05 10^3/uL (0.0-0.2); Absolute Eosinophil Count 0.17 10^3/uL (0.0-0.7); Absolute Lymphocyte Count 1.54 10^3/uL (1.2-3.4); Absolute Monocyte Count 0.51 10^3/uL (0.1-0.8); Basophils % 0.8; Eosinophils % 2.7; HCT 46.9 % (36.0-46.0); Immature Grans % 1.1; Lymphocytes % 24.3; MCH 31.4 pg (27.0-33.0); MCHC 34.1 % (32.0-36.0); MCV 92 fL (80-95); MPV 9.3 fL (8.0-11.0); Neutrophils % 63.1; Platelet Count 179 10^3/uL (130-400); RDW 12.9 % (11.7-14.6); RDW-SD 43.8 fL; WBC 6.34 10^3/uL (4.4-10.8)
[2023-04-11 15:11] LABS: ALT 31 U/L (14-59); AST 25 U/L (15-37); Albumin 4.9 g/dL (3.4-5.0); Alkaline Phosphatase 68 U/L (46-116); Anion Gap 11.3 mmol/L (3-11); BUN 6 mg/dL (7-18); Bilirubin, Total 0.5 mg/dL (0.2-1.0); CO2 25.7 mmol/L (21.0-32.0); CREATININE 0.9 mg/dL (0.55-1.02); Calcium 9.4 mg/dL (8.5-10.1); Chloride 96 mmol/L (98-107); Estimated GFR 70.51 (mL/min/1.73m2); Glucose 93 mg/dL (74-106); Potassium 3.9 mmol/L (3.5-5.1); Sodium 133 mmol/L (136-145); Total Protein 8.4 g/dL (6.4-8.2)
--- NOTE | 2023-04-11 15:34 | W.ED.GENAD ---
Discharge Plan Disposition Patient Disposition: Home Condition: Stable Discharge Details Clinical Impression: Anxiety, Sinusitis, Benzodiazepine withdrawal, Elevated blood pressure reading Primary Care Provider: Cathie Strange ED Provider: Vlad Samaniego Home Meds and New Rx's Prescriptions: New cefpodoxime 200 mg tablet 200 mg PO BID Qty: 14 0RF Rx Instructions: must administer with a meal/food Continued rizatriptan [Maxalt-TALENT ACQUISITION ASSOCIATE] 10 mg tablet,disintegrating 10 mg PO ONCE PRN (Reason: migraine headache) Qty: 14 2RF Rx Instructions: may repeat once after at least 2 hours polyethylene glycol 3350 17 gram/dose powder 238 g PO ONCE Qty: 238 0RF Rx Instructions: take per colonoscopy instructions bisacodyl [Dulcolax (bisacodyl)] 5 mg tablet,delayed release (DR/EC) 5 mg PO ONCE Qty: 4 0RF Rx Instructions: take per colonoscopy instructions dqnwlwosdawr-pofg-zaxrx acid 18-400 mg-mcg Tablet 1 tab PO DAILY lamotrigine 200 mg tablet 200 mg PO HS Patient Comments: TAKE ONE TABLET BY MOUTH EVERY DAY. STOP MED IF RASH OCCURS sertraline 100 mg tablet 150 mg PO DAILY Patient Comments: TAKE ONE TABLET BY MOUTH EVERY DAY bupropion HCl 300 mg tablet extended release 24 hr 300 mg PO DAILY Patient Comments: not taking lurasidone [Latuda] 120 mg tablet 80 mg PO DAILY Patient Comments: TAKE ONE TABLET BY MOUTH EVERY DAY WITH MEALS WITH TWO 20MG TABLETS FOR TOTAL 160MG/DAY Rx Instructions: TAKE WITH FOOD Held lansoprazole 30 mg capsule,delayed release(DR/EC) 30 mg PO DAILY Qty: 90 3RF Hold Instructions: Resume on 04/18/23. Hold while taking antibiotic Discontinued ondansetron HCl 4 mg tablet 4 - 8 mg PO TID PRN (Reason: nausea and vomiting) Qty: 60 0RF Patient Comments: not taking cetirizine 10 mg tablet 10 mg PO DAILY Qty: 90 3RF Patient Comments: not taking amoxicillin-pot clavulanate 875-125 mg tablet 1 tab PO Q12H Qty: 14 0RF Patient Comments: not taking Rx Instructions: Take 1 tablet twice a day for 7 days loratadine [Claritin] 10 mg tablet 10 mg PO DAILY PRN (Reason: allergies) Qty: 90 3RF Patient Comments: not taking prochlorperazine maleate [Compazine] 5 mg tablet 5 mg PO TID PRNQty: 10 0RF Patient Comments: not taking Discharge Instructions Instructions: Sinusitis (ED), Anxiety (ED) Additional Instructions: Your blood pressure was elevated today. Please be sure to discuss this with your primary care physician. Call today to arrange timely follow-up. Please follow-up with your psychiatrist. Call today to arrange follow-up. Reviewed body is dependent on benzodiazepines (Klonopin). This medication dosing needs to be tapered down and you need to take as prescribed. Please be sure to discuss this with your prescribing psychiatrist. Please contact your primary care physician to arrange follow-up. Return to the ER immediately for any worsening or new concerning symptoms. Referrals: [facility] [Outside] Cathie Strange NP [Primary Care Provider] - Medical Decision Making 68-year-old female with history of bipolar disorder and anxiety, treated with Klonopin, here having run out of her Klonopin 2 days ago, requesting medication refill, noting elevated blood pressure and anxiety with racing thoughts. Patient is hypertensive. Screening EKG was reviewed and interpreted by me: Please report, nondiagnostic. Patient has no chest pain. Concern for benzodiazepine withdrawal. Patient was given Ativan 1 mg IM. She was reassessed and noted continued feelings of anxiety and requesting additional benzodiazepine dose. IV was placed and patient was given Versed 2 mg IV. Screening labs were obtained and reviewed. Patient has no significant electrolyte abnormalities. No leukocytosis. I reviewed prior medical record: Patient did have CT scan of her head 03/16/2023 that was negative. Patient was reassessed and had significant improvement in symptoms. Blood pressure improved. Patient requesting discharge with prescription for Klonopin. The patient's psychiatric nurse practitioner discussed ED presentation and course. She is aware of the patient's presentation today. She reviewed prescriptions for Klonopin and notes patient has been refilling early and not using as prescribed. There is concern for overuse of Klonopin. She also notes the patient has had issues of noncompliance and she is concerned she is not taking other medications as prescribed. She will follow-up with the patient and prescribe course of Klonopin with plan to taper. For her persistent sinus congestion and having failed multiple antibiotics, I will initiate treatment with third-generation cephalosporin. I emphasized to the patient the importance of completing full course as prescribed. For discharge with outpatient follow-up. Disposition decision was made weighing the risks and benefits of hospitalization versus outpatient treatment, the risk for further decompensation, and the patient's wishes. The patient was stable and requested discharge. Prior to discharge, my usual and customary return precautions were reviewed with the patient - this included follow-up instructions and reason to return to the emergency department if condition worsens, does not improve as expected, or other new concerns arise. Medical Records Medical records reviewed: Yes I reviewed the patient's medical records. Lab Data Lab results reviewed: Yes I reviewed the patient's lab results. Labs: Laboratory Tests Range/Units 04/11/23 04/11/23 14:40 14:40 WBC (4.4-10.8) 10^3/uL 6.34 RBC (3.93-5.22) 10^6/uL 5.10 Hgb (11.2-15.7) g/dL 16.0 H Hct (36.0-46.0) % 46.9 H MCV (80-95) fL 92 MCH (27.0-33.0) pg 31.4 MCHC (32.0-36.0) % 34.1 RDW (11.7-14.6) % 12.9 Plt Count (130-400) 10^3/uL 179 MPV (8.0-11.0) fL 9.3 Immature Gran % 1.1 Neutrophils % 63.1 Lymphocytes % 24.3 Monocytes % 8.0 Eosinophils % 2.7 Basophils % 0.8 Nucleated RBC % (0.0-0.3) % 0.0 Absolute Neutrophils (1.2-6.7) 10^3/uL 4.00 Absolute Lymphocytes (1.2-3.4) 10^3/uL 1.54 Absolute Monocytes (0.1-0.8) 10^3/uL 0.51 Absolute Eosinophils (0.0-0.7) 10^3/uL 0.17 Absolute Basophils (0.0-0.2) 10^3/uL 0.05 Sodium (136-145) mmol/L 133 L Potassium (3.5-5.1) mmol/L 3.9 Chloride (98-107) mmol/L 96 L Carbon Dioxide (21.0-32.0) mmol/L 25.7 Anion Gap (3-11) mmol/L 11.3 H BUN (7-18) mg/dL 6 L Creatinine (0.55-1.02) mg/dL 0.9 Est GFR (CKD-EPI 2020) (mL/min/1.73m2) 70.51 Glucose (74-106) mg/dL 93 Calcium (8.5-10.1) mg/dL 9.4 Total Bilirubin (0.2-1.0) mg/dL 0.5 AST (15-37) U/L 25 ALT (14-59) U/L 31 Alkaline Phosphatase (46-116) U/L 68 Total Protein (6.4-8.2) g/dL 8.4 H Albumin (3.4-5.0) g/dL 4.9 HPI General Mode of arrival: ambulatory. Date/Time Provider Initiated Documentation: 04/11/23 13:12. Limitations to Documentation: no limitations. Information obtained by: patient. HPI Narrative: 68-year-old female with history of bipolar disorder, anxiety, presents with chief complaint of anxiety. Patient requesting Klonopin be administered as soon as possible. Patient notes that she is prescribed Klonopin and that she has been taking it fairly regularly over the past few weeks but that she ran out 2 days ago. She notes anxiety is worsened over the past 2 days. Patient has run out of her Klonopin. She was seen by her psychiatrist today who sent her to the ED for evaluation for racing thoughts and elevated blood pressure. Patient also notes that she has ongoing sinusitis. She states she was treated with multiple antibiotics that have not agreed with her and she has not yet completed a course of antibiotics and has persistent symptoms. Related Data Home Medications Medication Instructions Recorded Confirmed bupropion HCl 300 mg 24 hr tablet, 300 mg PO DAILY 02/10/22 03/16/23 extended release lamotrigine 200 mg tablet 200 mg PO HS 02/10/22 04/11/23 multivitamin-ferrous 1 tab PO DAILY 02/10/22 04/11/23 fumarate-folic acid 18 mg-400 mcg tablet sertraline 100 mg tablet 150 mg PO DAILY 02/10/22 04/11/23 lurasidone 120 mg tablet (Latuda) 80 mg PO DAILY 11/05/22 04/11/23 lansoprazole 30 mg capsule,delayed 30 mg PO DAILY #90 caps 11/22/22 04/11/23 release bisacodyl 5 mg tablet,delayed 5 mg PO ONCE colonscopy bowel prep 11/29/22 04/11/23 release (Dulcolax (bisacodyl)) #4 tabs polyethylene glycol 3350 17 238 g PO ONCE colonoscopy prep 11/29/22 04/11/23 gram/dose oral powder #238 grams rizatriptan 10 mg disintegrating 10 mg PO ONCE PRN migraine 03/16/23 04/11/23 tablet (Maxalt-TALENT ACQUISITION ASSOCIATE) headache #14 tabs cefpodoxime 200 mg tablet 200 mg PO BID #14 tabs 04/11/23 Previous Rx's Medication Instructions Recorded lansoprazole 30 mg capsule,delayed 30 mg PO DAILY #90 caps 11/22/22 release bisacodyl 5 mg tablet,delayed 5 mg PO ONCE colonscopy bowel prep 11/29/22 release (Dulcolax (bisacodyl)) #4 tabs polyethylene glycol 3350 17 238 g PO ONCE colonoscopy prep 11/29/22 gram/dose oral powder #238 grams rizatriptan 10 mg disintegrating 10 mg PO ONCE PRN migraine 03/16/23 tablet (Maxalt-TALENT ACQUISITION ASSOCIATE) headache #14 tabs cefpodoxime 200 mg tablet 200 mg PO BID #14 tabs 04/11/23 Allergies Allergy/AdvReac Type Severity Reaction Status Date / Time latex AdvReac Severe Skin Rash Verified 03/16/23 21:30 azithromycin [From Zithromax] AdvReac headache, Verified 03/16/23 21:30 hearing loss,double vision, DAVILA ciprofloxacin [From Cipro] AdvReac Dizziness/L Verified 03/16/23 21:30 ightheade codeine AdvReac GI upset Verified 03/16/23 21:30 doxycycline AdvReac Other (See Unverified 04/11/23 13:05 Comment) Penicillins AdvReac Other (See Unverified 04/11/23 13:05 Comment) Sulfa (Sulfonamide AdvReac anxious Verified 03/16/23 21:30 Antibiotics) General Stated Complaint: GenMedical MARIAM: 3 Review of Systems All systems reviewed & are unremarkable except as noted in HPI and below Constitutional Constitutional: Denies fever(s) and Denies headache(s) ENT Ears, Nose, Mouth, and Throat: Denies headache(s) Neurologic Neurologic: Denies headache(s) PFSH All Active Problems Hyperlipidemia (Chronic) Glaucoma (Chronic) Gastroesophageal reflux disease with esophagitis (Chronic) Bipolar I disorder (Chronic) Allergic rhinitis (Chronic) Migraine (Chronic) Multiple cranial nerve palsy (Chronic) Abdominal pain (Chronic) Prediabetes (Chronic) Chronic diarrhea (Chronic) Colon stricture (Acute) Diverticular stricture (Acute) Diverticulitis large intestine (Acute) Sinusitis (Acute) Medication reaction (Acute) Anxiety (Chronic) Sinusitis (Acute) Benzodiazepine withdrawal (Acute) Elevated blood pressure reading (Acute) Medical History 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 denies Diverticulitis of sigmoid colon Essential hypertension TMJ (temporomandibular joint disorder) Surgical History History of bilateral ligation of fallopian tubes History of esophagogastroduodenoscopy History of total vaginal hysterectomy (TVH) (07/03/15) With cystoscopy and rectocele repair S/P BSO (bilateral salpingo-oophorectomy) (07/03/15) S/P cholecystectomy Status post foot surgery Family History Mother Stroke Lung cancer Hypertension Father Heart disease Hyperlipidemia Hypertension Brother Heart disease DOUBLE BYPASS AGE 48 (NON SMOKER) Hyperlipidemia Son Depression Daughter Depression Maternal Grandfather Lung cancer Maternal Grandmother Heart disease Myocardial infarction Paternal Grandfather No problems noted. Paternal Grandmother Diabetes Social History Smoking/Tobacco Use Status: Former Tobacco Use Quit Date: 09/05/77 Smoking risk assessment performed?: Yes Alcohol Intake: never Drug use: Never Substance use type: does not use Housing: house Do you feel safe at home: Yes Do you feel safe in your relationship?: Yes Exam Const General: cooperative HENMT Head: normocephalic and atraumatic General nose exam: nares normal Mouth: moist mucous membranes Other: Patient sounds congested Eyes Conjunctivae: normal conjunctivae Sclera: normal sclerae EOM: EOM intact bilaterally Neck Neck: trachea midline and supple Resp Auscultation: clear to auscultation bilaterally, no rales, no rhonchi and no wheezes Cardio Rate: regular rate and not tachycardic Rhythm: regular rhythm GI Palpation: soft, not firm, no guarding, no masses, not rigid and nontender Skin General skin exam: no rashes or lesions noted Neuro General: patient alert, patient awake and tone normal Cognition: normal cognition Speech: speech normal Gait: normal gait Motor: strength 5/5 throughout Sensory Exam: no sensory deficits noted Extrem General: no edema Psych Appearance: grossly normal Mental Status: mental status grossly normal Speech and Movement: restless Mood: anxious mood Affect: anxious affect Course Vital Signs Vital signs: Vital Signs Temperature 36.8 C 04/11/23 12:59 Pulse 99 H 04/11/23 12:59 Respiratory Rate 20 04/11/23 12:59 Blood Pressure 165/102 H 04/11/23 12:59 Pulse Oximetry 96 04/11/23 12:59 Temperature 36.8 C 04/11/23 12:59 Temperature Source Skin 04/11/23 12:59 Pulse 99 H 04/11/23 12:59 Respiratory Rate 20 04/11/23 12:59 Blood Pressure 165/102 H 04/11/23 12:59 Blood Pressure Position Sitting 04/11/23 12:59 Pulse Oximetry 96 04/11/23 12:59 Oxygen Delivery Method Room Air 04/11/23 12:59 Oxygen Flow Rate 0 04/11/23 12:59 Pain Level 0 04/11/23 12:59 Lab/Test Results Lab/Test Results: Laboratory Tests Range/Units 04/11/23 04/11/23 14:40 14:40 WBC (4.4-10.8) 10^3/uL 6.34 RBC (3.93-5.22) 10^6/uL 5.10 Hgb (11.2-15.7) g/dL 16.0 H Hct (36.0-46.0) % 46.9 H MCV (80-95) fL 92 MCH (27.0-33.0) pg 31.4 MCHC (32.0-36.0) % 34.1 RDW (11.7-14.6) % 12.9 Plt Count (130-400) 10^3/uL 179 MPV (8.0-11.0) fL 9.3 Immature Gran % 1.1 Neutrophils % 63.1 Lymphocytes % 24.3 Monocytes % 8.0 Eosinophils % 2.7 Basophils % 0.8 Nucleated RBC % (0.0-0.3) % 0.0 Absolute Neutrophils (1.2-6.7) 10^3/uL 4.00 Absolute Lymphocytes (1.2-3.4) 10^3/uL 1.54 Absolute Monocytes (0.1-0.8) 10^3/uL 0.51 Absolute Eosinophils (0.0-0.7) 10^3/uL 0.17 Absolute Basophils (0.0-0.2) 10^3/uL 0.05 Sodium (136-145) mmol/L 133 L Potassium (3.5-5.1) mmol/L 3.9 Chloride (98-107) mmol/L 96 L Carbon Dioxide (21.0-32.0) mmol/L 25.7 Anion Gap (3-11) mmol/L 11.3 H BUN (7-18) mg/dL 6 L Creatinine (0.55-1.02) mg/dL 0.9 Est GFR (CKD-EPI 2020) (mL/min/1.73m2) 70.51 Glucose (74-106) mg/dL 93 Calcium (8.5-10.1) mg/dL 9.4 Total Bilirubin (0.2-1.0) mg/dL 0.5 AST (15-37) U/L 25 ALT (14-59) U/L 31 Alkaline Phosphatase (46-116) U/L 68 Total Protein (6.4-8.2) g/dL 8.4 H Albumin (3.4-5.0) g/dL 4.9
[2023-04-11] MEDS: Cefpodoxime 200 MG TAB PO (15:41)
== END 2023-04-11 16:05 | disposition home or self-care (01) ==
PROVIDERS: Emergency Provider Student in an Organized Health Care Education/Training Program; PCP Nurse Practitioner Family
DX: F41.9 Anxiety disorder, unspecified (principal); R03.0 Elevated blood-pressure reading, without diagnosis of hypertension; F13.939 Sedative, hypnotic or anxiolytic use, unspecified with withdrawal, unspecified; J32.9 Chronic sinusitis, unspecified
CPT/HCPCS: 36415; 80053; 93005; 96374; 96375; 99284; 85025; 93010; J2060; J2250

== ENCOUNTER 2023-04-13 13:35 | Outpatient (REF) | payer MEDICARE, MEDICAID, SELFPAY ==
[2023-04-13 20:49] LABS: Bilirubin Negative (Negative); Blood Trace-intact (Negative); Clarity Clear (Clear); Glucose Negative (Negative); Ketones 15 mg/dL (Negative); Leukocyte Esterase Trace (Negative); Nitrite Negative (Negative); Specific Gravity <= 1.005 (1.005-1.025); Urobilinogen 0.2 mg/dL (Up to 0.2)
[2023-04-13 22:12] LABS: Epithelial Cells Few HPF (Negative); RBC 0-2 HPF (0-2); WBC 0-2 HPF (0-5)
[2023-04-13 22:13] LABS: Bacteria Negative HPF (Negative); C & S Indicated? No; Casts Negative LPF (Negative); Crystals Few Amorphous HPF (Negative); Mucus Negative (Negative); Other Cells Rare Yeast (Negative)
[2023-04-15 14:07] LABS: Chlamydia Result Negative (Negative); GC Result Negative (Negative)
== END 2023-04-13 13:36 | disposition home or self-care (01) ==
LOC: LBN 13:35
PROVIDERS: PCP Nurse Practitioner Family; Visit Provider Nurse Practitioner Family
DX: Z11.3 Encounter for screening for infections with a predominantly sexual mode of transmission (principal); R30.0 Dysuria; R39.9 Unspecified symptoms and signs involving the genitourinary system
CPT/HCPCS: 87491; 87591; 81003; 81015; 87480; 87510; 87660

== ENCOUNTER 2023-04-15 11:13 | Emergency (ER) | payer MEDICARE, MEDICAID, SELFPAY ==
[2023-04-15 11:15] VITALS: BP 147/90; PULSE 93; RESP 18; TEMP 36.7; O2SAT 97
--- NOTE | 2023-04-15 12:10 | DI.CT_ITS ---
Exam(s) CT ABDOMEN PELVIS W EXAM: CT ABDOMEN PELVIS W CLINICAL HISTORY: Abdominal pain, nausea diarrhea. TECHNIQUE: Imaging Protocol: Axial computed tomography images with coronal and sagittal reformatted images were created and reviewed CONTRAST MATERIAL: Intravenous: Omnipaque 350 Contrast volume:100 ml Oral: no COMPARISON: CT CT CHEST PE ABD PELVIS W from 10/21/2022 FINDINGS: ABDOMEN: Lung Bases: Normal where visualized. Small hiatal hernia. Liver: Normal density. No measurable mass. Gallbladder and biliary tract: Status post cholecystectomy. No radiodense calculus or dilation. Pancreas: Normal density, no abnormal calcifications or inflammatory process. Spleen: Normal. Kidneys: Normal size, contour and axis. No radiodense stones or obstructive uropathy. Stable fatty d ensity left renal mass consistent with an angiomyolipoma. No suspicious masses seen. Adrenal glands: No masses seen. Abdominal Aorta: Abdominal portion non-dilated. Soft tissues: Unremarkable. PELVIS: Bladder: No gross wall thickening. No calculi.No focal mass. Bowel: Diverticulosis of the sigmoid. No diverticulitis. No obstruction. No bowel wall thickening . Appendix normal.Minimal stool. Peritoneal cavity: No ascites, collection or mesenteric inflammatory response. Bones: Degenerative changes and mild scoliosis. Reproductive organs: Status post hysterectomy. Lymph nodes: Unremarkable. Impression: No acute abnormality in the abdomen and pelvis. Diverticulosis. No evidence of diverticulitis. RADIATION DOSE DELIVERED: 748.07mGy.cm Total DLP DATA REPOSITORY: All CT scans at this facility are submitted to the National Radiology Data Registry (NRDR) Dose Index Registry (DIR) with the [employer] ([employer]). RADIATION OPTIMIZATION: All CT scans at this facility use at least one of these dose optimization te chniques: automated exposure control; mA and/or kV adjustment per patient size (includes targeted exa ms where dose is matched to clinical indication); or iterative reconstruction.
[2023-04-15 12:42] LABS: Abs Immature Grans 0.05 10^3/uL (0.0-0.06); Absolute Basophil Count 0.04 10^3/uL (0.0-0.2); Absolute Eosinophil Count 0.13 10^3/uL (0.0-0.7); Absolute Lymphocyte Count 1.81 10^3/uL (1.2-3.4); Absolute Monocyte Count 0.51 10^3/uL (0.1-0.8); Absolute Neutrophil Count 2.81 10^3/uL (1.2-6.7); Basophils % 0.7; Eosinophils % 2.4; HCT 45.3 % (36.0-46.0); HGB 15.6 g/dL (11.2-15.7); Immature Grans % 0.9; Lymphocytes % 33.8; MCH 31.5 pg (27.0-33.0); MCHC 34.4 % (32.0-36.0); MCV 92 fL (80-95); MPV 9.5 fL (8.0-11.0); Monocytes % 9.5; Neutrophils % 52.7; Platelet Count 167 10^3/uL (130-400); RBC 4.95 10^6/uL (3.93-5.22); RDW 13.1 % (11.7-14.6); WBC 5.35 10^3/uL (4.4-10.8)
[2023-04-15] MEDS: Normal Saline 1,000 ML 1000 ML IV (12:45)
[2023-04-15] MEDS: LORazepam 2 MG/ML VIAL 0.5 MG IVP (12:45)
[2023-04-15 13:01] LABS: ALT 27 U/L (14-59); AST 24 U/L (15-37); Albumin 4.5 g/dL (3.4-5.0); Alkaline Phosphatase 64 U/L (46-116); Anion Gap 12.7 mmol/L (3-11); BUN 5 mg/dL (7-18); Bilirubin, Total 0.4 mg/dL (0.2-1.0); CO2 26.3 mmol/L (21.0-32.0); CREATININE 0.8 mg/dL (0.55-1.02); Calcium 9.6 mg/dL (8.5-10.1); Chloride 99 mmol/L (98-107); Estimated GFR 81.21 (mL/min/1.73m2); Glucose 98 mg/dL (74-106); Magnesium 1.5 mg/dL (1.8-2.4); Potassium 3.9 mmol/L (3.5-5.1); Sodium 138 mmol/L (136-145); Total Protein 7.9 g/dL (6.4-8.2)
[2023-04-15] MEDS: Omnipaque 350 MG/ML 100 ML BTL IJ (13:09)
[2023-04-15] MEDS: Normal Saline - Diluent 50 ML VIAL IJ (13:11)
[2023-04-15] MEDS: Magnesium Oxide 400 MG TAB PO (13:32)
--- NOTE | 2023-04-15 13:49 | ED.GENADUL_ITS ---
Discharge Plan Disposition Patient Disposition: Home Discharge Details Clinical Impression: Antibiotic-associated diarrhea, Anxiety, Benzodiazepine withdrawal, Elevated blood pressure reading Primary Care Provider: Cathie Strange ED Provider: Tavo Anne Home Meds and New Rx's Prescriptions: Continued cefpodoxime 200 mg tablet 200 mg PO BID Qty: 14 0RF Rx Instructions: must administer with a meal/food lansoprazole 30 mg capsule,delayed release(DR/EC) 30 mg PO DAILY Qty: 90 3RF Hold Instructions: Changed by Provider polyethylene glycol 3350 17 gram/dose powder 238 g PO ONCE Qty: 238 0RF Rx Instructions: take per colonoscopy instructions bisacodyl [Dulcolax (bisacodyl)] 5 mg tablet,delayed release (DR/EC) 5 mg PO ONCE Qty: 4 0RF Rx Instructions: take per colonoscopy instructions diclofenac sodium [Voltaren Arthritis Pain] 1 % gel 2 g topical QID PRN (Reason: joint pain) Qty: 100 1RF Rx Instructions: apply to single elbow, wrist or hand; for hand includes palm/fingers/back of hand rizatriptan [Maxalt-INDUSTRIAL ARTS TEACHER] 10 mg tablet,disintegrating 10 mg PO ONCE PRN (Reason: migraine headache) Qty: 14 2RF Rx Instructions: may repeat once after at least 2 hours cbvzkzzzdlmp-dfda-howdx acid 18-400 mg-mcg Tablet 1 tab PO DAILY lamotrigine 200 mg tablet 200 mg PO HS Patient Comments: TAKE ONE TABLET BY MOUTH EVERY DAY. STOP MED IF RASH OCCURS sertraline 100 mg tablet 150 mg PO DAILY Patient Comments: TAKE ONE TABLET BY MOUTH EVERY DAY bupropion HCl 300 mg tablet extended release 24 hr 300 mg PO DAILY Patient Comments: not taking lurasidone [Latuda] 120 mg tablet 80 mg PO DAILY Patient Comments: TAKE ONE TABLET BY MOUTH EVERY DAY WITH MEALS WITH TWO 20MG TABLETS FOR TOTAL 160MG/DAY Rx Instructions: TAKE WITH FOOD Discharge Instructions Instructions: Acute Diarrhea (ED), Anxiety (ED) Additional Instructions: I feel that your diarrhea is associated with your antibiotic use. Please continue to take your medications as prescribed you may also add a probiotic and make sure that you eat appropriate amounts of fiber as this will help with your stools. If you have any new or significant worsening symptoms or fever return the emergency department for reassessment. Your mental health provider has sent a prescription into [facility] in [place]. Please picker / packer this medication and take your Klonopin as ordered. You will need to follow-up with her office next week for further discussion of more medication for new medication as needed. Referrals: Cathie Strange NP [Primary Care Provider] - 3 days Discharge Data Discharge Date/Time-TO BE ENTERED AT DEPARTURE: 04/15/23 14:26 Medical Decision Making Patient presenting to the emergency department for chief complaint of significant anxiety. Patient states that she feels she is withdrawing from her Klonopin given that it is stopped and she has not had a dose in about 5 days. Patient also is complaining of diarrhea from the antibiotic that she was placed on but she also states that she has had long ongoing diarrhea. Patient denies any fever or chills, does state some nausea but denies any vomiting. Physical exam shows normal active bowel sounds but right and left lower quadrant tenderness, patient is anxious and overall appearance but no other worrisome findings are noted. Given patient's long ongoing diarrhea and abdominal tenderness with history of diverticulitis will perform labs and CT imaging, give patient IV fluids and small amount of Ativan. Pending results. Reviewed patient's Medical records and did see the patient's mental health provider did send in prescription for more Klonopin on 04/12/2023. Discussed this with patient patient states that she did not know this was called in and had not picked up this medication. Informed patient that we could not further refill her Klonopin given primary care with concerns of potential abuse which I also discussed with patient. Did inform patient that she should picker / packer this medication and continue to take as prescribed and otherwise follow-up with primary care or mental health provider. Reviewed patient's labs and labs are overall unremarkable. There was a slightly elevated anion gap of 12.7 and magnesium of 1.5. We will orally replete the magnesium. Patient was unable to give us adequate stool specimen or urinalysis to perform further testing. CT imaging was reviewed along with radiologist interpretation that showed diverticulosis without any acute findings. Patient reassessed and did state some improvement of overall symptoms so we will discharge patient and again encouraged her to take her medications as prescribed and picker / packer the Klonopin that was already sent to the pharmacy. After discussion of diagnosis and plan of care patient has no further needs, questions, or concerns and states clear understanding to return to the emergency department for any worsening symptoms. This documentation was generated using Dr. Jerry's [employer] system, please disregard any oddities of phrase or misspellings. Medical Records Medical records reviewed: Yes I reviewed the patient's medical records. Imaging Data Radiologic Study: Imaging: CT Scan Radiologist's impression: Exam(s) CT ABDOMEN PELVIS W EXAM: CT ABDOMEN PELVIS W CLINICAL HISTORY: Abdominal pain, nausea diarrhea. TECHNIQUE: Imaging Protocol: Axial computed tomography images with coronal and sagittal reformatted images were created and reviewed CONTRAST MATERIAL: Intravenous: Omnipaque 350 Contrast volume:100 ml Oral: no COMPARISON: CT CT CHEST PE ABD PELVIS W from 10/21/2022 FINDINGS: ABDOMEN: Lung Bases: Normal where visualized. Small hiatal hernia. Liver: Normal density. No measurable mass. Gallbladder and biliary tract: Status post cholecystectomy. No radiodense calculus or dilation. Pancreas: Normal density, no abnormal calcifications or inflammatory process. Spleen: Normal. Kidneys: Normal size, contour and axis. No radiodense stones or obstructive uropathy. Stable fatty density left renal mass consistent with an angiomyolipoma. No suspicious masses seen. Adrenal glands: No masses seen. Abdominal Aorta: Abdominal portion non-dilated. Soft tissues: Unremarkable. PELVIS: Bladder: No gross wall thickening. No calculi.No focal mass. Bowel: Diverticulosis of the sigmoid. No diverticulitis. No obstruction. No bowel wall thickening. Appendix normal.Minimal stool. Peritoneal cavity: No ascites, collection or mesenteric inflammatory response. Bones: Degenerative changes and mild scoliosis. Reproductive organs: Status post hysterectomy. Lymph nodes: Unremarkable. Impression: No acute abnormality in the abdomen and pelvis. Diverticulosis. No evidence of diverticulitis. HPI General Mode of arrival: ambulatory . Date/Time Provider Initiated Documentation: 04/15/23 11:22 . Limitations to Documentation: no limitations . Information obtained by: patient and RN notes reviewed . History of Present Illness 68 year old F presents to the emergency department with the chief com plaint of Anxiety, out of medications, diarrhea, described as moderate and similar to prior episodes, Patient started experiencing this day(s) (5) and it has been constant. No relieving factors improve symptom(s), Medication worsens symptoms (Running out of medications) . Patient did receive the following treatments prior to arrival, none Related Data Home Medications Medication Instructions Recorded Confirmed bupropion HCl 300 mg 24 hr tablet, 300 mg PO DAILY 02/10/22 04/15/23 extended release lamotrigine 200 mg tablet 200 mg PO HS 02/10/22 04/15/23 multivitamin-ferrous 1 tab PO DAILY 02/10/22 04/15/23 fumarate-folic acid 18 mg-400 mcg tablet sertraline 100 mg tablet 150 mg PO DAILY 02/10/22 04/15/23 lurasidone 120 mg tablet (Latuda) 80 mg PO DAILY 11/05/22 04/15/23 lansoprazole 30 mg capsule,delayed 30 mg PO DAILY #90 caps 11/22/22 04/15/23 release bisacodyl 5 mg tablet,delayed 5 mg PO ONCE colonscopy bowel prep 11/29/22 04/15/23 release (Dulcolax (bisacodyl)) #4 tabs polyethylene glycol 3350 17 238 g PO ONCE colonoscopy prep 11/29/22 04/15/23 gram/dose oral powder #238 grams diclofenac sodium 1 % topical gel 2 g topical QID PRN joint pain 04/12/23 04/15/23 (Voltaren Arthritis Pain) #100 grams cefpodoxime 200 mg tablet 200 mg PO BID #14 tabs 04/13/23 04/15/23 rizatriptan 10 mg disintegrating 10 mg PO ONCE PRN migraine 04/13/23 04/15/23 tablet (Maxalt-INDUSTRIAL [employer]S TEACHER) headache #14 tabs Previous Rx's Medication Instructions Recorded lansoprazole 30 mg capsule,delayed 30 mg PO DAILY #90 caps 11/22/22 release bisacodyl 5 mg tablet,delayed 5 mg PO ONCE colonscopy bowel prep 11/29/22 release (Dulcolax (bisacodyl)) #4 tabs polyethylene glycol 3350 17 238 g PO ONCE colonoscopy prep 11/29/22 gram/dose oral powder #238 grams diclofenac sodium 1 % topical gel 2 g topical QID PRN joint pain 04/12/23 (Voltaren Arthritis Pain) #100 grams cefpodoxime 200 mg tablet 200 mg PO BID #14 tabs 04/13/23 rizatriptan 10 mg disintegrating 10 mg PO ONCE PRN migraine 04/13/23 tablet (Maxalt-INDUSTRIAL [employer]S TEACHER) headache #14 tabs Allergies Allergy/AdvReac Type Severity Reaction Status Date / Time latex AdvReac Severe Skin Rash Verified 04/15/23 11:38 azithromycin [From Zithromax] AdvReac headache, Verified 04/15/23 11:38 hearing loss,double vision, DAVILA ciprofloxacin [From Cipro] AdvReac Dizziness/L Verified 04/15/23 11:38 ightheade codeine AdvReac GI upset Verified 04/15/23 11:38 doxycycline AdvReac Other (See Unverified 04/15/23 11:38 Comment) Penicillins AdvReac Other (See Unverified 04/15/23 11:38 Comment) Sulfa (Sulfonamide AdvReac anxious Verified 04/15/23 11:38 Antibiotics) General Stated Complaint: Anxiety MARIAM: 3 Review of Systems Constitutional Constitutional: Denies chills, Denies fever(s) and Reports poor appetite Cardiovascular Cardiovascular: Denies chest pain and Denies dyspnea Respiratory Respiratory: Denies cough and Denies dyspnea Gastrointestinal Gastrointestinal: Reports as per HPI, Reports abdominal pain, Denies melena, Denies change in bowel habits, Denies constipation, Reports diarrhea, Reports na usea and Denies vomiting Genitourinary Genitourinary: Denies hematuria, Denies urinary incontinence, Denies urinary hesitancy and Denies urinary urgency Integumentary/Breasts Skin/Breast: Denies rash Psychiatric Psychiatric: Reports as per HPI, Reports abnormal sleep pattern and Reports anxiety PFSH All Active Problems (Updated 04/15/23 @ 14:07 by Tavo Anne NP) Antibiotic-associated diarrhea (Acute) Hyperlipidemia (Chronic) Glaucoma (Chronic) Gastroesophageal reflux disease with esophagitis (Chronic) Bipolar I disorder (Chronic) Allergic rhinitis (Chronic) Migraine (Chronic) Multiple cranial nerve palsy (Chronic) Abdominal pain (Chronic) Prediabetes (Chronic) Chronic diarrhea (Chronic) Colon stricture (Acute) Diverticular stricture (Acute) Diverticulitis large intestine (Acute) Sinusitis (Acute) Medication reaction (Acute) Anxiety (Chronic) Sinusitis (Acute) Benzodiazepine withdrawal (Acute) Elevated blood pressure reading (Acute) Medical History 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 denies Diverticulitis of sigmoid colon Essential hypertension TMJ (temporomandibular joint disorder) Surgical History History of bilateral ligation of fallopian tubes History of esophagogastroduodenoscopy History of total vaginal hysterectomy (TVH) (07/03/15) With cystoscopy and rectocele repair S/P BSO (bilateral salpingo-oophorectomy) (07/03/15) S/P cholecystectomy Status post foot surgery Family History Mother Stroke Lung cancer Hypertension Father Heart disease Hyperlipidemia Hypertension Brother Heart disease DOUBLE BYPASS AGE 48 (NON SMOKER) Hyperlipidemia Son Depression Daughter Depression Maternal Grandfather Lung cancer Maternal Grandmother Heart disease Myocardial infarction Paternal Grandfather No problems noted. Paternal Grandmother Diabetes Social History Smoking/Tobacco Use Status: Former Tobacco Use Quit Date: 09/05/77 Smoking risk assessment performed?: Yes Alcohol Intake: never Drug use: Never Substance use type: does not use Housing: house Do you feel safe at home: Yes Do you feel safe in your relationship?: Yes Exam Const General: cooperative Orientation: alert, awake and oriented x3 Resp Effort & Inspection: normal respiratory effort and able to speak in complete sentences Auscultation: clear to auscultation bilaterally Cardio Rate: regular rate Rhythm: regular rhythm Heart Sounds: S1 normal and S2 normal GI Inspection: normal to inspection Palpation: soft, no hepatosplenomegaly, not firm, no guarding, no masses, no pulsatile masses, not rigid, no splenomegaly and tender in the LLQ and in the RLQ Auscultation: normal bowel sounds Back/Spine/Pelvis Back: no CVA tenderness Neuro General: patient alert, patient awake, patient oriented x3, gait normal and moves all extremities Psych Appearance: disheveled Speech and Movement: restless Mood: anxious mood Affect: animated and anxious affect Attitude: cooperative Course Vital Signs Vital signs: Vital Signs Temperature 36.7 C 04/15/23 11:15 Pulse 93 H 04/15/23 11:15 Respiratory Rate 18 04/15/23 11:15 Blood Pressure 147/90 H 04/15/23 11:15 Pulse Oximetry 97 04/15/23 11:15 Temperature 36.7 C 04/15/23 11:15 Temperature Source Skin 04/15/23 11:15 Pulse 93 H 04/15/23 11:15 Respiratory Rate 18 04/15/23 11:15 Respiratory Effort Normal 04/15/23 12:43 Respiratory Depth Normal 04/15/23 12:43 Respiratory Pattern Normal 04/15/23 12:43 Blood Pressure 147/90 H 04/15/23 11:15 Blood Pressure Position Sitting 04/15/23 11:15 Pulse Oximetry 97 04/15/23 11:15 Oxygen Delivery Method Room Air 04/15/23 11:15 Oxygen Flow Rate 0 04/15/23 11:15 Pain Level 5 04/15/23 11:15 Lab/Test Results Lab/Test Results: Laboratory Tests Range/Units 04/15/23 04/15/23 04/15/23 11:50 11:50 12:30 WBC (4.4-10.8) 10^3/uL RBC (3.93-5.22) 10^6/uL Hgb (11.2-15.7) g/dL Hct (36.0-46.0) % MCV (80-95) fL MCH (27.0-33.0) pg MCHC (32.0-36.0) % RDW (11.7-14.6) % Plt Count (130-400) 10^3/uL MPV (8.0-11.0) fL Immature Gran % Neutrophils % Lymphocytes % Monocytes % Eosinophils % Basophils % Nucleated RBC % (0.0-0.3) % Absolute Neutrophils (1.2-6.7) 10^3/uL Absolute Lymphocytes (1.2-3.4) 10^3/uL Absolute Monocytes (0.1-0.8) 10^3/uL Absolute Eosinophils (0.0-0.7) 10^3/uL Absolute Basophils (0.0-0.2) 10^3/uL Sodium (136-145) mmol/L 138 Potassium (3.5-5.1) mmol/L 3.9 Chloride (98-107) mmol/L 99 Carbon Dioxide (21.0-32.0) mmol/L 26.3 Anion Gap (3-11) mmol/L 12.7 H BUN (7-18) mg/dL 5 L Creatinine (0.55-1.02) mg/dL 0.8 Est GFR (CKD-EPI 2020) (mL/min/1.73m2) 81.21 Glucose (74-106) mg/dL 98 Calcium (8.5-10.1) mg/dL 9.6 Magnesium (1.8-2.4) mg/dL 1.5 L Total Bilirubin (0.2-1.0) mg/dL 0.4 AST (15-37) U/L 24 ALT (14-59) U/L 27 Alkaline Phosphatase (46-116) U/L 64 Total Protein (6.4-8.2) g/dL 7.9 Albumin (3.4-5.0) g/dL 4.5 Stool Description Cancelled Stool Campylobacter PCR Cancelled Stl C.difficile Tox PCR Cancelled Stool Salmonella PCR Cancelled Stool Shigella PCR Cancelled Stool Ova & Parasites Cancelled Cryptosporidium/Giardia Cancelled Shiga Toxin (PCR) Cancelled Range/Units 04/15/23 12:30 WBC (4.4-10.8) 10^3/uL 5.35 RBC (3.93-5.22) 10^6/uL 4.95 Hgb (11.2-15.7) g/dL 15.6 Hct (36.0-46.0) % 45.3 MCV (80-95) fL 92 MCH (27.0-33.0) pg 31.5 MCHC (32.0-36.0) % 34.4 RDW (11.7-14.6) % 13.1 Plt Count (130-400) 10^3/uL 167 MPV (8.0-11.0) fL 9.5 Immature Gran % 0.9 Neutrophils % 52.7 Lymphocytes % 33.8 Monocytes % 9.5 Eosinophils % 2.4 Basophils % 0.7 Nucleated RBC % (0.0-0.3) % 0.0 Absolute Neutrophils (1.2-6.7) 10^3/uL 2.81 Absolute Lymphocytes (1.2-3.4) 10^3/uL 1.81 Absolute Monocytes (0.1-0.8) 10^3/uL 0.51 Absolute Eosinophils (0.0-0.7) 10^3/uL 0.13 Absolute Basophils (0.0-0.2) 10^3/uL 0.04 Sodium (136-145) mmol/L Potassium (3.5-5.1) mmol/L Chloride (98-107) mmol/L Carbon Dioxide (21.0-32.0) mmol/L Anion Gap (3-11) mmol/L BUN (7-18) mg/dL Creatinine (0.55-1.02) mg/dL Est GFR (CKD-EPI 2020) (mL/min/1.73m2) Glucose (74-106) mg/dL Calcium (8.5-10.1) mg/dL Magnesium (1.8-2.4) mg/dL Total Bilirubin (0.2-1.0) mg/dL AST (15-37) U/L ALT (14-59) U/L Alkaline Phosphatase (46-116) U/L Total Protein (6.4-8.2) g/dL Albumin (3.4-5.0) g/dL Stool Description Stool Campylobacter PCR Stl C.difficile Tox PCR Stool Salmonella PCR Stool Shigella PCR Stool Ova & Parasites Cryptosporidium/Giardia Shiga Toxin (PCR)
== END 2023-04-15 14:26 | disposition home or self-care (01) ==
PROVIDERS: Emergency Provider Nurse Practitioner Family; PCP Nurse Practitioner Family
DX: F13.930 Sedative, hypnotic or anxiolytic use, unspecified with withdrawal, uncomplicated (principal); R03.0 Elevated blood-pressure reading, without diagnosis of hypertension; K52.1 Toxic gastroenteritis and colitis; T36.95XA Adverse effect of unspecified systemic antibiotic, initial encounter; K57.30 Diverticulosis of large intestine without perforation or abscess without bleeding; F41.9 Anxiety disorder, unspecified; I10 Essential (primary) hypertension; Z90.49 Acquired absence of other specified parts of digestive tract
CPT/HCPCS: 80053; 87329; 87493; 87505; 96360; 99285; 74177; 83735; 85025; 87177; 99284; J2060; J3490

== ENCOUNTER 2023-05-25 20:05 | Emergency (ER) | payer MEDICARE, MEDICAID, SELFPAY ==
[2023-05-25 20:17] VITALS: BP 152/86; PULSE 82; RESP 18; TEMP 36.7; O2SAT 95
[2023-05-25 20:49] VITALS: PULSE 68; RESP 23; O2SAT 94
[2023-05-25 20:50] VITALS: PULSE 69; RESP 26; O2SAT 95
--- NOTE | 2023-05-25 20:58 | ED.GENADUL_ITS ---
Discharge Plan Disposition Patient Disposition: Home Condition: Stable Discharge Details Clinical Impression: Abdominal pain, acute, left lower quadrant Primary Care Provider: Cathie Strange ED Provider: Vlad Samaniego Home Meds and New Rx's Prescriptions: Continued lurasidone 80 mg tablet 80 mg PO DAILY trazodone 100 mg tablet 200 mg PO QHS polyethylene glycol 3350 17 gram/dose powder 238 g PO ONCE Qty: 238 0RF Rx Instructions: take per colonoscopy instructions bisacodyl [Dulcolax (bisacodyl)] 5 mg tablet,delayed release (DR/EC) 5 mg PO ONCE Qty: 4 0RF Rx Instructions: take per colonoscopy instructions lansoprazole 30 mg capsule,delayed release(DR/EC) 30 mg PO DAILY Qty: 90 3RF Hold Instructions: Changed by Provider cetirizine 10 mg tablet 10 mg PO DAILY PRN (Reason: allergy symptoms) Qty: 90 3RF lisinopril 10 mg tablet 10 mg PO DAILY Qty: 90 3RF diclofenac sodium [Voltaren Arthritis Pain] 1 % gel 2 g topical QID PRN (Reason: joint pain) Qty: 100 1RF Rx Instructions: apply to single elbow, wrist or hand; for hand includes palm/fingers/back of hand nfweduuctmzv-rxwz-lkdro acid 18-400 mg-mcg Tablet 1 tab PO DAILY lamotrigine 200 mg tablet 200 mg PO HS Patient Comments: TAKE ONE TABLET BY MOUTH EVERY DAY. STOP MED IF RASH OCCURS sertraline 100 mg tablet 150 mg PO DAILY Patient Comments: TAKE ONE TABLET BY MOUTH EVERY DAY Discontinued clonazepam 0.5 mg tablet 0.5 mg PO DAILY PRN Patient Comments: not taking for at least a month 05/25/23 bupropion HCl 300 mg tablet extended release 24 hr 300 mg PO DAILY Patient Comments: not taking for at least a month 05/25/23 No Action rizatriptan [Maxalt-FILM ARCHIVIST] 10 mg tablet,disintegrating 10 mg PO ONCE PRN (Reason: migraine headache) Qty: 14 2RF Rx Instructions: may repeat once after at least 2 hours ondansetron 4 mg tablet,disintegrating 4 mg PO Q8H PRNQty: 6 0RF ciprofloxacin HCl 500 mg tablet 500 mg PO BID Qty: 8 0RF metronidazole 500 mg tablet 500 mg PO TID Qty: 12 0RF Discharge Instructions Instructions: Amoxicillin/Clavulanate Potassium (By mouth), Diverticulitis (ED) Additional Instructions: You presented today to the emergency department with left lower quadrant abdominal pain that feels typical for prior flareup of diverticulitis. You have elected not to pursue additional diagnostic testing at this time. We are initiating treatment for presumed acute flare of diverticulitis. Please take full course of antibiotic as prescribed. Please follow-up with your primary care physician. Call tomorrow. Return to the ER immediately for any worsening or new concerning symptoms or should you wish to pursue additional diagnostics. Referrals: Cathie Strange NP [Primary Care Provider] - Discharge Data Discharge Date/Time-TO BE ENTERED AT DEPARTURE: 05/25/23 21:20 Medical Decision Making 68-year-old female with history of diverticulitis, here with left lower quadrant abdominal pain, consistent with prior flareup of diverticulitis. Patient notes she was last on antibiotics for diverticulitis 2 to 3 months ago. Patient is tender in her left lower quadrant. Abdomen is soft and she has no rebound tenderness. Patient is hemodynamically stable. I discussed diagnostic treatment plan with the patient. Patient elects to not pursue further diagnostics at this time and provides informed refusal. She notes symptoms feel exactly the same as prior diverticulitis flare. She would prefer to initiate treatment antibiotics and monitor closely. Patient understands without further further testing, diagnostic work-up is limited. She understands other conditions have not been ruled out. Plan to initiate treatment with Augmentin. Patient will require close follow-up with PCP. I advised her to call PCP office tomorrow morning. She was encouraged to return immediately should she have any worsening or new concerning symptoms. HPI General Mode of arrival: ambulatory . Date/Time Provider Initiated Documentation: 05/25/23 20:38 . Limitations to Documentation: no limitations . Information obtained by: patient . HPI Narrative: 68-year-old female with history of diverticulitis presents with chief complaint of flareup of diverticulitis. Patient notes left lower quadrant abdominal pain. Pain started about 1 week ago and has persisted. Pain feels exactly the same as prior diverticulitis flare. She has associated nausea and loose stool. No bloody stool. Pain does not radiate anywhere else. No associated fever. No urinary symptoms. Related Data Home Medications Medication Instructions Recorded Confirmed lamotrigine 200 mg tablet 200 mg PO HS 02/10/22 06/01/23 multivitamin-ferrous 1 tab PO DAILY 02/10/22 06/01/23 fumarate-folic acid 18 mg-400 mcg tablet sertraline 100 mg tablet 150 mg PO DAILY 02/10/22 06/01/23 bisacodyl 5 mg tablet,delayed 5 mg PO ONCE colonscopy bowel prep 11/29/22 06/01/23 release (Dulcolax (bisacodyl)) #4 tabs polyethylene glycol 3350 17 238 g PO ONCE colonoscopy prep 11/29/22 06/01/23 gram/dose oral powder #238 grams lurasidone 80 mg tablet 80 mg PO DAILY 04/18/23 06/01/23 trazodone 100 mg tablet 200 mg PO QHS 04/18/23 06/01/23 cetirizine 10 mg tablet 10 mg PO DAILY PRN allergy 04/20/23 05/26/23 symptoms #90 tabs lansoprazole 30 mg capsule,delayed 30 mg PO DAILY #90 caps 04/20/23 06/01/23 release lisinopril 10 mg tablet 10 mg PO DAILY #90 tabs 05/02/23 06/01/23 diclofenac sodium 1 % topical gel 2 g topical QID PRN joint pain 05/11/23 06/01/23 (Voltaren Arthritis Pain) #100 grams rizatriptan 10 mg disintegrating 10 mg PO ONCE PRN migraine 05/26/23 06/01/23 tablet (Maxalt-FILM ARCHIVIST) headache #14 tabs ciprofloxacin HCl 500 mg tablet 500 mg PO BID #8 tabs 05/27/23 metronidazole 500 mg tablet 500 mg PO TID #12 tabs 05/27/23 ondansetron 4 mg disintegrating 4 mg PO Q8H PRN #6 tabs 05/27/23 06/01/23 tablet Previous Rx's Medication Instructions Recorded bisacodyl 5 mg tablet,delayed 5 mg PO ONCE colonscopy bowel prep 11/29/22 release (Dulcolax (bisacodyl)) #4 tabs polyethylene glycol 3350 17 238 g PO ONCE colonoscopy prep 11/29/22 gram/dose oral powder #238 grams cetirizine 10 mg tablet 10 mg PO DAILY PRN allergy 04/20/23 symptoms #90 tabs lansoprazole 30 mg capsule,delayed 30 mg PO DAILY #90 caps 04/20/23 release lisinopril 10 mg tablet 10 mg PO DAILY #90 tabs 05/02/23 diclofenac sodium 1 % topical gel 2 g topical QID PRN joint pain 05/11/23 (Voltaren Arthritis Pain) #100 grams rizatriptan 10 mg disintegrating 10 mg PO ONCE PRN migraine 05/26/23 tablet (Maxalt-FILM ARCHIVIST) headache #14 tabs ciprofloxacin HCl 500 mg tablet 500 mg PO BID #8 tabs 05/27/23 metronidazole 500 mg tablet 500 mg PO TID #12 tabs 05/27/23 ondansetron 4 mg disintegrating 4 mg PO Q8H PRN #6 tabs 05/27/23 tablet Allergies Allergy/AdvReac Type Severity Reaction Status Date / Time latex AdvReac Severe Skin Rash Verified 05/25/23 20:23 amoxicillin [From Augmentin] AdvReac Agitation Unverified 06/01/23 07:40 azithromycin [From Zithromax] AdvReac headache, Verified 05/25/23 20:23 hearing loss,double vision, DAVILA ciprofloxacin [From Cipro] AdvReac Dizziness/L Verified 05/25/23 20:23 ightheade clavulanic acid AdvReac Agitation Unverified 06/01/23 07:40 [From Augmentin] codeine AdvReac GI upset Verified 05/25/23 20:23 doxycycline AdvReac Other (See Unverified 05/25/23 20:23 Comment) metronidazole [From Flagyl] AdvReac Agitation Unverified 06/01/23 07:40 Penicillins AdvReac Other (See Unverified 05/25/23 20:23 Comment) Sulfa (Sulfonamide AdvReac anxious Verified 05/25/23 20:23 Antibiotics) General Stated Complaint: Abd Prob MARIAM: 3 Review of Systems All systems reviewed & are unremarkable except as noted in HPI and below PFSH All Active Problems (Updated 06/01/23 @ 09:02 by Rose Marie Sy MD) Abdominal pain, acute, left lower quadrant (Acute) Abdominal pain (Acute) Diverticulitis of sigmoid colon (Acute) Acute hyponatremia (Acute) Hyperlipidemia (Chronic) Glaucoma (Chronic) Gastroesophageal reflux disease with esophagitis (Chronic) Bipolar I disorder (Chronic) Allergic rhinitis (Chronic) Migraine (Chronic) Multiple cranial nerve palsy (Chronic) Abdominal pain (Chronic) Prediabetes (Chronic) Chronic diarrhea (Chronic) Colon stricture (Acute) Diverticular stricture (Acute) Diverticulitis large intestine (Acute) Medical History 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 denies Diverticulitis of sigmoid colon Essential hypertension TMJ (temporomandibular joint disorder) Surgical History History of bilateral ligation of fallopian tubes History of esophagogastroduodenoscopy History of total vaginal hysterectomy (TVH) (07/03/15) With cystoscopy and rectocele repair S/P BSO (bilateral salpingo-oophorectomy) (07/03/15) S/P cholecystectomy Status post foot surgery Family History Mother Stroke Lung cancer Hypertension Father Heart disease Hyperlipidemia Hypertension Brother Heart disease DOUBLE BYPASS AGE 48 (NON SMOKER) Hyperlipidemia Son Depression Daughter Depression Maternal Grandfather Lung cancer Maternal Grandmother Heart disease Myocardial infarction Paternal Grandfather No problems noted. Paternal Grandmother Diabetes Social History Smoking/Tobacco Use Status: Former Tobacco Use Quit Date: 09/05/77 Smoking risk assessment performed?: Yes Alcohol Intake: never Drug use: Never Substance use type: does not use Housing: house Do you feel safe at home: Yes Do you feel safe in your relationship?: Yes Exam Const General: cooperative and no acute distress HENMT Mouth: moist mucous membranes Eyes Conjunctivae: normal conjunctivae Sclera: normal sclerae Neck Neck: trachea midline and supple Resp Auscultation: clear to auscultation bilaterally, no rales, no rhonchi and no wheezes Cardio Rate: regular rate and not tachycardic Rhythm: regular rhythm GI Inspection: non-distended Palpation: soft, not firm, no guarding, no masses, not rigid and tender in the LLQ; with no rebound tenderness Percussion: normal to percussion Auscultation: normal bowel sounds Skin General skin exam: no rashes or lesions noted Neuro General: patient alert, patient awake and tone normal Extrem General: no edema Psych Appearance: grossly normal Mental Status: mental status grossly normal Course Vital Signs Vital signs: Vital Signs Temperature 36.7 C 05/25/23 20:17 Pulse 82 05/25/23 20:17 Respiratory Rate 18 05/25/23 20:17 Blood Pressure 152/86 H 05/25/23 20:17 Pulse Oximetry 95 05/25/23 20:17 Temperature 36.7 C 05/25/23 20:17 Temperature Source Skin 05/25/23 20:17 Pulse 82 05/25/23 20:17 Respiratory Rate 18 05/25/23 20:17 Respiratory Effort Normal 05/25/23 20:20 Blood Pressure 152/86 H 05/25/23 20:17 Pulse Oximetry 95 05/25/23 20:17 Oxygen Delivery Method Room Air 05/25/23 20:17 Oxygen Flow Rate 0 05/25/23 20:17 Pain Level 7 05/25/23 20:17
[2023-05-25 21:00] VITALS: PULSE 69; RESP 21; O2SAT 94
[2023-05-25 21:10] VITALS: PULSE 72; RESP 16
[2023-05-25] MEDS: Ketorolac 30 MG/ML VIAL IM (21:10)
[2023-05-25] MEDS: Amoxicillin 875/Clav. 125 TAB PO (21:10)
[2023-05-25] MEDS: Amox. 875/Clav. 125, 2 TABS/BTL 1 TAB PO (21:19)
[2023-05-25 21:21] VITALS: PULSE 82; RESP 16; O2SAT 94
--- NOTE | 2023-05-26 03:04 | W.ED.FU ---
Date of service: 05/26/23 Time of Service: 03:04 Follow Up Plan: Benita called this evening at 3:04 AM. Patient states that she was prescribed Augmentin, and upon review of the patient's chart does appear that she does have a penicillin allergy, the allergy was that it tore up her stomach. She took the first dose of Augmentin already, and then tonight she called because she developed runny nose and congestion. Uncertain if this is related to the medication or not. She also does admit to some diarrhea and some mild continuation of her abdominal pain. However, she did take a bunch of laxatives also tonight which is likely contributing to the diarrhea. She denies any shortness of breath or chest pain whatsoever. She admits to mild itching skin, but denies any rash. She did take 4 tablets of 25 mg Benadryl. I recommended that the patient take no additional Benadryl at this time as she has reached the maximum dose currently. Recommended stopping taking the penicillin/Augmentin for the time being. Recommend close follow-up here in the ED or with her primary care provider at her scheduled appointment tomorrow. At this time based on what she is stating, there appears to be no clinical evidence of anaphylaxis. I also recommended to the patient that she can return for evaluation here, which she states she does not feel that she needs to come in now, and will be staying home. I also informed her that at any point she can call 911 as well if she is concerned with her symptoms. My recommendations at this time are for reevaluation, however she is requesting to stay home to see how things go. Discussed red flags for which to return. I have extensively reviewed the treatment plan and discharge instructions with the patient. I have addressed all patient concerns at this time. The patient was made aware of what symptoms to monitor for that would warrant a return to the emergency department. Discussed the plan with the patient, they demonstrate verbal understanding and agreement with our assessment and plan at this time. The documentation in this chart was dictated using [employer] dictation software. Please excuse any dictation errors.
== END 2023-05-25 21:20 | disposition home or self-care (01) ==
PROVIDERS: Emergency Provider Student in an Organized Health Care Education/Training Program; PCP Nurse Practitioner Family
DX: R10.32 Left lower quadrant pain (principal); R19.7 Diarrhea, unspecified; R11.0 Nausea; I10 Essential (primary) hypertension; Z87.891 Personal history of nicotine dependence
CPT/HCPCS: 96372; 99283; J1885

== ENCOUNTER 2023-05-26 06:35 | Observation (INO) | payer MEDICARE, MEDICAID, SELFPAY ==
[2023-05-26] VITALS (10 sets, daily range): BP systolic 102–170; BP diastolic 59–72; PULSE 57–77; RESP 16–20; TEMP 36.3–36.6; O2SAT 90–98
--- NOTE | 2023-05-26 06:47 | W.ED.GENAD ---
Discharge Plan Discharge Details Chief Complaint: Abd Prob Clinical Impression: Abdominal pain Primary Care Provider: Cathie Strange ED Provider: George Bergman Home Meds and New Rx's Prescriptions: No Action lurasidone 80 mg tablet 80 mg PO DAILY trazodone 100 mg tablet 200 mg PO QHS polyethylene glycol 3350 17 gram/dose powder 238 g PO ONCE Qty: 238 0RF Rx Instructions: take per colonoscopy instructions bisacodyl [Dulcolax (bisacodyl)] 5 mg tablet,delayed release (DR/EC) 5 mg PO ONCE Qty: 4 0RF Rx Instructions: take per colonoscopy instructions rizatriptan [Maxalt-STITCH BONDING MACHINE DRAWER IN] 10 mg tablet,disintegrating 10 mg PO ONCE PRN (Reason: migraine headache) Qty: 14 2RF Rx Instructions: may repeat once after at least 2 hours lansoprazole 30 mg capsule,delayed release(DR/EC) 30 mg PO DAILY Qty: 90 3RF Hold Instructions: Changed by Provider cetirizine 10 mg tablet 10 mg PO DAILY PRN (Reason: allergy symptoms) Qty: 90 3RF lisinopril 10 mg tablet 10 mg PO DAILY Qty: 90 3RF diclofenac sodium [Voltaren Arthritis Pain] 1 % gel 2 g topical QID PRN (Reason: joint pain) Qty: 100 1RF Rx Instructions: apply to single elbow, wrist or hand; for hand includes palm/fingers/back of hand hxtpdsevnygk-sswl-bhztg acid 18-400 mg-mcg Tablet 1 tab PO DAILY lamotrigine 200 mg tablet 200 mg PO HS Patient Comments: TAKE ONE TABLET BY MOUTH EVERY DAY. STOP MED IF RASH OCCURS sertraline 100 mg tablet 150 mg PO DAILY Patient Comments: TAKE ONE TABLET BY MOUTH EVERY DAY amoxicillin-pot clavulanate 875-125 mg tablet 1 tab PO BID Qty: 17 0RF Medical Decision Making 68-year-old female with a past medical history of bipolar disorder, high cholesterol, hypertension, GERD/Cramer's esophagus, presents today for evaluation abdominal pain. Patient was here last night and seen by my colleague Dr. Vlad Samaniego. He offered laboratory work-up and imaging. Patient refused at that time. Patient requested antibiotics and she was given a prescription for Augmentin. Unfortunately when she got home she said her skin began burning, she got a runny nose and congestion her abdominal pain worsened. She contacted EMS and came back in for assessment. She admits to diarrhea but also states that she took a laxative last night 2. She states that her diarrhea is foul-smelling. No recent travel or previous antibiotics aside for the Augmentin. She denies previous abdominal surgeries. No other complaints at this time. Exam demonstrates generalized tenderness throughout, dry mucous membranes. No evidence of an acute surgical abdomen. Concern for diverticulitis, abscess, less likely obstruction. We will get a CT scan, rehydrate, treat her pain, monitor closely and reassess. Symptoms clinically inconsistent with ACS. Patient will be signed out to my colleague for follow-up on labs and imaging HPI General Date/Time Provider Initiated Documentation: 05/26/23 06:44. HPI Narrative: 68-year-old female with a past medical history of bipolar disorder, high cholesterol, hypertension, GERD/Cramer's esophagus, presents today for evaluation abdominal pain. Patient was here last night and seen by my colleague Dr. Vlad Samaniego. He offered laboratory work-up and imaging. Patient refused at that time. Patient requested antibiotics and she was given a prescription for Augmentin. Unfortunately when she got home she said her skin began burning, she got a runny nose and congestion her abdominal pain worsened. She contacted EMS and came back in for assessment. She admits to diarrhea but also states that she took a laxative last night 2. She states that her diarrhea is foul-smelling. No recent travel or previous antibiotics aside for the Augmentin. She denies previous abdominal surgeries. No other complaints at this time. Related Data Home Medications Medication Instructions Recorded Confirmed lamotrigine 200 mg tablet 200 mg PO HS 02/10/22 05/26/23 multivitamin-ferrous 1 tab PO DAILY 02/10/22 05/26/23 fumarate-folic acid 18 mg-400 mcg tablet sertraline 100 mg tablet 150 mg PO DAILY 02/10/22 05/26/23 bisacodyl 5 mg tablet,delayed 5 mg PO ONCE colonscopy bowel prep 11/29/22 05/26/23 release (Dulcolax (bisacodyl)) #4 tabs polyethylene glycol 3350 17 238 g PO ONCE colonoscopy prep 11/29/22 05/26/23 gram/dose oral powder #238 grams rizatriptan 10 mg disintegrating 10 mg PO ONCE PRN migraine 04/13/23 05/26/23 tablet (Maxalt-STITCH BONDING MACHINE DRAWER IN) headache #14 tabs lurasidone 80 mg tablet 80 mg PO DAILY 04/18/23 05/26/23 trazodone 100 mg tablet 200 mg PO QHS 04/18/23 05/26/23 cetirizine 10 mg tablet 10 mg PO DAILY PRN allergy 04/20/23 05/26/23 symptoms #90 tabs lansoprazole 30 mg capsule,delayed 30 mg PO DAILY #90 caps 04/20/23 05/26/23 release lisinopril 10 mg tablet 10 mg PO DAILY #90 tabs 05/02/23 05/26/23 diclofenac sodium 1 % topical gel 2 g topical QID PRN joint pain 05/11/23 05/26/23 (Voltaren Arthritis Pain) #100 grams amoxicillin 875 mg-potassium 1 tab PO BID #17 tabs 05/25/23 05/26/23 clavulanate 125 mg tablet Previous Rx's Medication Instructions Recorded bisacodyl 5 mg tablet,delayed 5 mg PO ONCE colonscopy bowel prep 11/29/22 release (Dulcolax (bisacodyl)) #4 tabs polyethylene glycol 3350 17 238 g PO ONCE colonoscopy prep 11/29/22 gram/dose oral powder #238 grams rizatriptan 10 mg disintegrating 10 mg PO ONCE PRN migraine 04/13/23 tablet (Maxalt-STITCH BONDING MACHINE DRAWER IN) headache #14 tabs cetirizine 10 mg tablet 10 mg PO DAILY PRN allergy 04/20/23 symptoms #90 tabs lansoprazole 30 mg capsule,delayed 30 mg PO DAILY #90 caps 04/20/23 release lisinopril 10 mg tablet 10 mg PO DAILY #90 tabs 05/02/23 diclofenac sodium 1 % topical gel 2 g topical QID PRN joint pain 05/11/23 (Voltaren Arthritis Pain) #100 grams amoxicillin 875 mg-potassium 1 tab PO BID #17 tabs 05/25/23 clavulanate 125 mg tablet Allergies Allergy/AdvReac Type Severity Reaction Status Date / Time latex AdvReac Severe Skin Rash Verified 05/25/23 20:23 azithromycin [From Zithromax] AdvReac headache, Verified 05/25/23 20:23 hearing loss,double vision, DAVILA ciprofloxacin [From Cipro] AdvReac Dizziness/L Verified 05/25/23 20:23 ightheade codeine AdvReac GI upset Verified 05/25/23 20:23 doxycycline AdvReac Other (See Unverified 05/25/23 20:23 Comment) Penicillins AdvReac Other (See Unverified 05/25/23 20:23 Comment) Sulfa (Sulfonamide AdvReac anxious Verified 05/25/23 20:23 Antibiotics) General Stated Complaint: Abd Prob MARIAM: 3 Review of Systems All systems reviewed & are unremarkable except as noted in HPI and below PFSH All Active Problems (Updated 05/26/23 @ 07:46 by George Bergman DO) Abdominal pain, acute, left lower quadrant (Acute) Abdominal pain (Acute) Hyperlipidemia (Chronic) Glaucoma (Chronic) Gastroesophageal reflux disease with esophagitis (Chronic) Bipolar I disorder (Chronic) Allergic rhinitis (Chronic) Migraine (Chronic) Multiple cranial nerve palsy (Chronic) Abdominal pain (Chronic) Prediabetes (Chronic) Chronic diarrhea (Chronic) Colon stricture (Acute) Diverticular stricture (Acute) Diverticulitis large intestine (Acute) Medical History 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 denies Diverticulitis of sigmoid colon Essential hypertension TMJ (temporomandibular joint disorder) Surgical History History of bilateral ligation of fallopian tubes History of esophagogastroduodenoscopy History of total vaginal hysterectomy (TVH) (07/03/15) With cystoscopy and rectocele repair S/P BSO (bilateral salpingo-oophorectomy) (07/03/15) S/P cholecystectomy Status post foot surgery Family History Mother Stroke Lung cancer Hypertension Father Heart disease Hyperlipidemia Hypertension Brother Heart disease DOUBLE BYPASS AGE 48 (NON SMOKER) Hyperlipidemia Son Depression Daughter Depression Maternal Grandfather Lung cancer Maternal Grandmother Heart disease Myocardial infarction Paternal Grandfather No problems noted. Paternal Grandmother Diabetes Social History Smoking/Tobacco Use Status: Former Tobacco Use Quit Date: 09/05/77 Smoking risk assessment performed?: Yes Alcohol Intake: never Drug use: Never Substance use type: does not use Housing: house Do you feel safe at home: Yes Do you feel safe in your relationship?: Yes Exam Narrative Exam Narrative: 1.Const: Well-nourished, Well-developed, appearing stated age 2.Eyes: PERRL, no conjunctival injection, and symmetrical lids. 3.ENT: Atraumatic external nose and ears. Dry MM. Neck: Symmetric, trachea midline, No thyromegaly. 4.CVS: +S1/S2, No murmurs or gallops. Peripheral pulses 2+ and equal in all extremities. Brisk capillary refill in all extremities. 5.RESP: Unlabored respiratory effort. Clear to auscultation bilaterally. No wheezes rales or rhonchi 6.GI: Generalized tenderness throughout. Bowel sounds present. No guarding or rebound. 7.MSK: Normocephalic/Atraumatic, Extremities w/o deformity or ttp No cyanosis or clubbing, Normal movement of all extremities 8.Skin: Warm, Dry. No rashes or lesions. 9.Neuro: immunopathologist II-XII grossly intact. Sensation grossly intact, no focal neurologic deficits. 10.Psych: (AAO) x3. Appropriate mood and affect Course Vital Signs Vital signs: Vital Signs Temperature 36.4 C 05/26/23 06:37 Pulse 77 05/26/23 06:37 Respiratory Rate 16 05/26/23 06:37 Blood Pressure 168/72 H 05/26/23 06:37 Pulse Oximetry 96 05/26/23 06:37 Temperature 36.4 C 05/26/23 06:37 Temperature Source Oral 05/26/23 06:37 Pulse 77 05/26/23 06:37 Respiratory Rate 16 05/26/23 06:37 Respiratory Effort Normal, Non-Labored 05/26/23 06:40 Blood Pressure 168/72 H 05/26/23 06:37 Blood Pressure Position Sitting 05/26/23 06:37 Pulse Oximetry 96 05/26/23 06:37 Oxygen Delivery Method Room Air 05/26/23 06:37 Oxygen Flow Rate 0 05/26/23 06:37 Pain Level 8 05/26/23 06:37
[2023-05-26] MEDS: Normal Saline 1,000 ML 1000 ML IV ×2 (06:53→09:55)
[2023-05-26] MEDS: MORPHine 4 MG/ML SYR IVP ×2 (07:06→08:10)
[2023-05-26] MEDS: Ondansetron 4 MG/2 ML VIAL IVP (07:07)
[2023-05-26 07:08] LABS: Abs Immature Grans 0.04 10^3/uL (0.0-0.06); Absolute Basophil Count 0.04 10^3/uL (0.0-0.2); Absolute Eosinophil Count 0.27 10^3/uL (0.0-0.7); Absolute Lymphocyte Count 1.98 10^3/uL (1.2-3.4); Absolute Monocyte Count 0.55 10^3/uL (0.1-0.8); Absolute Neutrophil Count 2.59 10^3/uL (1.2-6.7); Basophils % 0.7; Eosinophils % 4.9; HGB 15.1 g/dL (11.2-15.7); Immature Grans % 0.7; Lymphocytes % 36.2; MCH 32.1 pg (27.0-33.0); MCV 89 fL (80-95); MPV 9.8 fL (8.0-11.0); Monocytes % 10.1; Neutrophils % 47.4; Platelet Count 155 10^3/uL (130-400); RBC 4.71 10^6/uL (3.93-5.22); RDW 12.4 % (11.7-14.6); RDW-SD 40.9 fL; WBC 5.47 10^3/uL (4.4-10.8)
--- NOTE | 2023-05-26 07:58 | W.EDPROG ---
Date of service: 05/26/23 Time of Service: 07:58 Medical Decision Making I have received signout from Dr. Bergman. We are awaiting CT results. Narrative I have seen and examined the patient. She is requesting more morphine. She was seen last night by Dr. Samaniego and given Augmentin for presumptive diverticulitis. She is complaining now of diarrhea and an upset stomach from the Augmentin. She tells me that she previously was on Cipro and Flagyl for diverticulitis although Cipro is listed as an allergy the allergy is dizziness and lightheadedness. We are awaiting CT scanning. I will likely discharge her on Cipro Flagyl if her CT does not fact show diverticulitis without significant perforation or abscess. Her abdomen is soft slightly tender in the suprapubic region. No rebound or guarding. She is requesting more pain medicine. I have written for morphine. 8:44 AM the lab has notified us that the patient's sodium is 124. I have reviewed the patient's previous labs and she is been hyponatremic in the past but only as low as 133. 8:51 AM I have discussed the sodium with the patient. She does not drink excessive amounts of water. She tells me she drinks 2 bottles of of electrolyte solutions a day. She does endorse a 29 pound weight loss over several months. She attributes it to depression which has improved. I have advised the patient that she may require admission for the hyponatremia. The IV in her right arm has infiltrated. We will reestablish an IV and continue giving her normal saline. 10:20 AM: The patient was requesting to take her morning medications. Her CT scan is currently being dictated. I have informed the patient that we will give her her meds if the CT scan does not show any significant pathology such as free air or intra-abdominal abscess which might require surgical intervention. 10:24 AM: Dr. Gross, the radiologist has just notified me that the patient has mild sigmoid diverticulitis, without evidence of abscess or perforation. I have notified the patient and have paged the hospitalist. I will request to admit her for observation and hyponatremia. 12:03 PM: Dr. Borja the hospitalist returned my page. She felt as though the hyponatremia could be secondary to nausea and vomiting. I had just ordered a repeat basic metabolic panel. If the repeat sodium is greater than 130 discharge the patient home and if it remains below 130 I will notify her and we will admit for observation. I will update the patient. 1302 p.m.: Patient's repeat sodium is 129. Potassium has normalized. I have paged Dr. Borja, the hospitalist to notify her. 13 10 PM: I have spoken with Dr. Borja and notified her of the sodium. She asked me to asked the patient if she would like to be admitted. The patient states she would like to be admitted and needs pain control. Sign Out Sign Out Data: Sign Out Comment: Seen last night by Dr. Samaniego. Refused labs and imaging at that time. Came back this morning with continued abdominal pain. Follow-up on labs and imaging Last updated by George Bergman DO at 05/26/23 07:47 Discharge Plan Disposition Patient Disposition: Admit to [facility] Discharge Details Chief Complaint: Abd Prob Clinical Impression: Diverticulitis of sigmoid colon, Abdominal pain, Bipolar I disorder, Allergic rhinitis, Hyperlipidemia, Prediabetes, Glaucoma, Acute hyponatremia Primary Care Provider: Cathie Strange ED Provider: Cyndie Cuba Home Meds and New Rx's Prescriptions: No Action lurasidone 80 mg tablet 80 mg PO DAILY trazodone 100 mg tablet 200 mg PO QHS polyethylene glycol 3350 17 gram/dose powder 238 g PO ONCE Qty: 238 0RF Rx Instructions: take per colonoscopy instructions bisacodyl [Dulcolax (bisacodyl)] 5 mg tablet,delayed release (DR/EC) 5 mg PO ONCE Qty: 4 0RF Rx Instructions: take per colonoscopy instructions lansoprazole 30 mg capsule,delayed release(DR/EC) 30 mg PO DAILY Qty: 90 3RF Hold Instructions: Changed by Provider cetirizine 10 mg tablet 10 mg PO DAILY PRN (Reason: allergy symptoms) Qty: 90 3RF lisinopril 10 mg tablet 10 mg PO DAILY Qty: 90 3RF diclofenac sodium [Voltaren Arthritis Pain] 1 % gel 2 g topical QID PRN (Reason: joint pain) Qty: 100 1RF Rx Instructions: apply to single elbow, wrist or hand; for hand includes palm/fingers/back of hand rizatriptan [Maxalt-PEOPLESOFT CRM DEVELOPER] 10 mg tablet,disintegrating 10 mg PO ONCE PRN (Reason: migraine headache) Qty: 14 2RF Rx Instructions: may repeat once after at least 2 hours mdhzixwdcokt-snmt-bcjvm acid 18-400 mg-mcg Tablet 1 tab PO DAILY lamotrigine 200 mg tablet 200 mg PO HS Patient Comments: TAKE ONE TABLET BY MOUTH EVERY DAY. STOP MED IF RASH OCCURS sertraline 100 mg tablet 150 mg PO DAILY Patient Comments: TAKE ONE TABLET BY MOUTH EVERY DAY amoxicillin-pot clavulanate 875-125 mg tablet 1 tab PO BID Qty: 17 0RF Discharge Data Discharge Physician: Cyndie Cuba
[2023-05-26 08:41] LABS: ALT 26 U/L (14-59); AST 25 U/L (15-37); Albumin 3.6 g/dL (3.4-5.0); Alkaline Phosphatase 45 U/L (46-116); Anion Gap 11.2 mmol/L (3-11); BUN 9 mg/dL (7-18); Bilirubin, Total 0.4 mg/dL (0.2-1.0); CO2 24.8 mmol/L (21.0-32.0); Chloride 88 mmol/L (98-107); Estimated GFR 62.13 (mL/min/1.73m2); Glucose 98 mg/dL (74-106); Lipase 25 U/L (16-77); Potassium 3.2 mmol/L (3.5-5.1); Total Protein 6.5 g/dL (6.4-8.2)
[2023-05-26 08:44] LABS: Sodium 124 mmol/L (136-145)
[2023-05-26] MEDS: Normal Saline - Diluent 50 ML VIAL IJ (09:31)
[2023-05-26] MEDS: Omnipaque 350 MG/ML 500 ML BTL-Imaging package 100 ML IJ (09:32)
--- NOTE | 2023-05-26 09:40 | DI.CT_ITS ---
Exam(s) CT ABDOMEN PELVIS W EXAM: CT ABDOMEN PELVIS W CLINICAL HISTORY: abdominal pain, hx of tics TECHNIQUE: Imaging Protocol: Axial computed tomography images with coronal and sagittal reformatted images were created and reviewed CONTRAST MATERIAL: Intravenous: Omnipaque 350 Contrast volume:100 mL Oral: No COMPARISON: CT UPPER ABD W/WO CONTRAST(P) from 05/04/[address] ABDOMEN PELVIS W from 04/15/2023 FINDINGS: ABDOMEN: Lung Bases: Scarring or atelectasis is seen in the lung bases. Liver: Normal density. No measurable mass. Portal, Superior Mesenteric, and Splenic Veins: Unremarkable. Gallbladder and Biliary Tract: Status post cholecystectomy. There is stable prominence of the intra and extrahepatic bile ducts which may be secondary to the post cholecystectomy state. Pancreas: Normal density, no abnormal calcifications or inflammatory process. Spleen: There are 2 stable hypodensities in the spleen. These may represent benign lesions such as h emangiomas. Adrenals: No masses seen. Kidneys: Normal size, contour and axis. No radiodense stones or obstructive uropathy. There is a stab le fat density lesion in the left kidney consistent with a angiomyolipoma. No suspicious renal jihan s identified. Abdominal Aorta: Abdominal portion non-dilated. Atherosclerosis. Bowel: There is diverticulosis of the colon. There is mild inflammation seen near the rectosigmoid j unction suggestive of acute diverticulitis. There is no evidence of bowel obstruction. No evidence of appendicitis. Peritoneal Cavity: No ascites, collection or mesenteric inflammatory response. No free air. Lymph Nodes: Within normal limits. Bones: Within normal limits for the patient's age. Soft Tissues: Unremarkable. PELVIS: Bladder: Symmetric distention, no gross wall thickening. Reproductive Organs: Status post hysterectomy. Lymph Nodes: Within normal limits. Bones: Within normal limits for the patient's age. IMPRESSION: 1. Findings consistent with acute diverticulitis. No abscess or free air. 2. Findings were discussed with Dr. Cuba at 10:23 a.m. on 05/26/2023. RADIATION DOSE DELIVERED: 938.02mGy.cm Total DLP DATA REPOSITORY: All CT scans at this facility are submitted to the National Radiology Data Registry (NRDR) Dose Index Registry (DIR) with the [employer] (ACR). RADIATION OPTIMIZATION: All CT scans at this facility use at least one of these dose optimization te chniques: automated exposure control; mA and/or kV adjustment per patient size (includes targeted exa ms where dose is matched to clinical indication); or iterative reconstruction.
[2023-05-26] MEDS: Sertraline 100 MG TAB 150 MG PO (10:52)
[2023-05-26] MEDS: Lisinopril 10 MG TAB PO (10:52)
[2023-05-26] MEDS: metroNIDAZOLE 500 MG TAB PO (10:52)
[2023-05-26] MEDS: Ciprofloxacin 500 MG TAB PO (10:52)
[2023-05-26] MEDS: Lansoprazole 30 MG CAPCR PO (10:53)
[2023-05-26] MEDS: MORPHine 10 MG/ML VIAL 2 MG IVP (12:05)
[2023-05-26] MEDS: Potassium Chloride Liquid 20 MEQ PKT 40 MEQ PO (12:08)
[2023-05-26 12:55] LABS: Anion Gap 8.3 mmol/L (3-11); BUN 7 mg/dL (7-18); CO2 25.7 mmol/L (21.0-32.0); CREATININE 0.9 mg/dL (0.55-1.02); Calcium 8.4 mg/dL (8.5-10.1); Chloride 95 mmol/L (98-107); Estimated GFR 70.51 (mL/min/1.73m2); Glucose 91 mg/dL (74-106); Potassium 3.7 mmol/L (3.5-5.1); Sodium 129 mmol/L (136-145)
--- NOTE | 2023-05-26 14:21 | W.PM.HP.N ---
Date of service: 05/26/23 Time of Service: 14:22 Assessment and Plan Assessment and plan (1) Diverticulitis of sigmoid colon: Assessment and plan: continue Cipro and flagyl as initiated in ED, will check and trend CRP clear liquid diet, advance as tolerated. continue IV fluids symptom management, will try Toradol and acetaminophen for pain and use ondansetron for any ongoing nausea She has been followed by general surgery in the past and underwent a colonoscopy in November 17, 2022, will request report. she has no white count and benign abdominal exam. consider wait and see without antibiotic treatment for now. will check labs in am and reassess. (2) Bipolar I disorder: Status: Chronic Assessment and plan: stable, continue home medication. (3) Discharge planning issues: Status: Acute Assessment and plan: anticipate discharge to home with no services discussed with Dr Borja History of Present Illness History of Present Illness Chief Complaint: abdominal pain Narrative: This is a 68-year-old female patient with a history of diverticulitis who presents to the emergency department with symptoms of abdominal pain nausea vomiting and diarrhea are most consistent with her history of diverticulitis. Initially she did not want to be CAT scan just wanted oral medications and discharged. She received Augmentin and was sent home but only to return unable to tolerate the Augmentin orally. In the emergency department she did undergo a CAT scan at this point now that showed no acute abscess or perforation. Hemodynamically she was stable. She did receive IV morphine for pain management in the emergency department and bed request was made for observation status. Review of Systems All systems reviewed & are unremarkable except as noted in HPI and below PFSH All Active Problems (Updated 05/26/23 @ 18:25 by Joanie Salas NP) Discharge planning issues (Acute) Abdominal pain, acute, left lower quadrant (Acute) Abdominal pain (Acute) Diverticulitis of sigmoid colon (Acute) Acute hyponatremia (Acute) Hyperlipidemia (Chronic) Glaucoma (Chronic) Gastroesophageal reflux disease with esophagitis (Chronic) Bipolar I disorder (Chronic) Allergic rhinitis (Chronic) Migraine (Chronic) Multiple cranial nerve palsy (Chronic) Abdominal pain (Chronic) Prediabetes (Chronic) Chronic diarrhea (Chronic) Colon stricture (Acute) Diverticular stricture (Acute) Diverticulitis large intestine (Acute) Medical History 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 denies Diverticulitis of sigmoid colon Essential hypertension TMJ (temporomandibular joint disorder) Surgical History History of bilateral ligation of fallopian tubes History of esophagogastroduodenoscopy History of total vaginal hysterectomy (TVH) (07/03/15) With cystoscopy and rectocele repair S/P BSO (bilateral salpingo-oophorectomy) (07/03/15) S/P cholecystectomy Status post foot surgery Family History Mother Stroke Lung cancer Hypertension Father Heart disease Hyperlipidemia Hypertension Brother Heart disease DOUBLE BYPASS AGE 48 (NON SMOKER) Hyperlipidemia Son Depression Daughter Depression Maternal Grandfather Lung cancer Maternal Grandmother Heart disease Myocardial infarction Paternal Grandfather No problems noted. Paternal Grandmother Diabetes Social History Smoking/Tobacco Use Status: Former Tobacco Use Quit Date: 09/05/77 Smoking risk assessment performed?: Yes Alcohol Intake: never Drug use: Never Substance use type: does not use Housing: house Do you feel safe at home: Yes Do you feel safe in your relationship?: Yes Meds Allergies and Home Medications Allergies Allergy/AdvReac Type Severity Reaction Status Date / Time latex AdvReac Severe Skin Rash Verified 05/25/23 20:23 azithromycin [From Zithromax] AdvReac headache, Verified 05/25/23 20:23 hearing loss,double vision, DAVILA ciprofloxacin [From Cipro] AdvReac Dizziness/L Verified 05/25/23 20:23 ightheade codeine AdvReac GI upset Verified 05/25/23 20:23 doxycycline AdvReac Other (See Unverified 05/25/23 20:23 Comment) Penicillins AdvReac Other (See Unverified 05/25/23 20:23 Comment) Sulfa (Sulfonamide AdvReac anxious Verified 05/25/23 20:23 Antibiotics) Home Medications Medication Instructions Recorded Confirmed Type lamotrigine 200 mg tablet 200 mg PO HS 02/10/22 05/26/23 History multivitamin-ferrous 1 tab PO DAILY 02/10/22 05/26/23 History fumarate-folic acid 18 mg-400 mcg tablet sertraline 100 mg tablet 150 mg PO DAILY 02/10/22 05/26/23 History bisacodyl 5 mg tablet,delayed 5 mg PO ONCE colonscopy bowel prep 11/29/22 05/26/23 Rx release (Dulcolax (bisacodyl)) #4 tabs polyethylene glycol 3350 17 238 g PO ONCE colonoscopy prep 11/29/22 05/26/23 Rx gram/dose oral powder #238 grams lurasidone 80 mg tablet 80 mg PO DAILY 04/18/23 05/26/23 History trazodone 100 mg tablet 200 mg PO QHS 04/18/23 05/26/23 History cetirizine 10 mg tablet 10 mg PO DAILY PRN allergy 04/20/23 05/26/23 Rx symptoms #90 tabs lansoprazole 30 mg capsule,delayed 30 mg PO DAILY #90 caps 04/20/23 05/26/23 Rx release lisinopril 10 mg tablet 10 mg PO DAILY #90 tabs 05/02/23 05/26/23 Rx diclofenac sodium 1 % topical gel 2 g topical QID PRN joint pain 05/11/23 05/26/23 Rx (Voltaren Arthritis Pain) #100 grams amoxicillin 875 mg-potassium 1 tab PO BID #17 tabs 05/25/23 05/26/23 Rx clavulanate 125 mg tablet rizatriptan 10 mg disintegrating 10 mg PO ONCE PRN migraine 05/26/23 Rx tablet (Maxalt-EMOTIONAL SUPPORT TEACHER) headache #14 tabs Results Labs 05/26/23 06:50 05/26/23 12:35 Labs: Laboratory Results - last 24 hr 05/26/23 05/26/23 05/26/23 06:50 06:50 07:20 WBC 5.47 RBC 4.71 Hgb 15.1 Hct 42.0 MCV 89 MCH 32.1 MCHC 36.0 RDW 12.4 Plt Count 155 MPV 9.8 Immature Gran % 0.7 Neutrophils % 47.4 Lymphocytes % 36.2 Monocytes % 10.1 Eosinophils % 4.9 Basophils % 0.7 Nucleated RBC % 0.0 Absolute Neutrophils 2.59 Absolute Lymphocytes 1.98 Absolute Monocytes 0.55 Absolute Eosinophils 0.27 Absolute Basophils 0.04 Sodium Cancelled Cancelled Potassium Cancelled Cancelled Chloride Cancelled Cancelled Carbon Dioxide Cancelled Cancelled Anion Gap Cancelled Cancelled BUN Cancelled Cancelled Creatinine Cancelled Cancelled Est GFR (CKD-EPI 2020) Cancelled Cancelled Glucose Cancelled Cancelled Calcium Cancelled Cancelled Total Bilirubin Cancelled Cancelled AST Cancelled Cancelled ALT Cancelled Cancelled Alkaline Phosphatase Cancelled Cancelled Total Protein Cancelled Cancelled Albumin Cancelled Cancelled Lipase Cancelled Cancelled 05/26/23 05/26/23 07:40 12:35 WBC RBC Hgb Hct MCV MCH MCHC RDW Plt Count MPV Immature Gran % Neutrophils % Lymphocytes % Monocytes % Eosinophils % Basophils % Nucleated RBC % Absolute Neutrophils Absolute Lymphocytes Absolute Monocytes Absolute Eosinophils Absolute Basophils Sodium 124 L 129 L Potassium 3.2 L 3.7 Chloride 88 L 95 L Carbon Dioxide 24.8 25.7 Anion Gap 11.2 H 8.3 BUN 9 7 Creatinine 1.0 0.9 Est GFR (CKD-EPI 2020) 62.13 70.51 Glucose 98 91 Calcium 9.0 8.4 L Total Bilirubin 0.4 AST 25 ALT 26 Alkaline Phosphatase 45 L Total Protein 6.5 Albumin 3.6 Lipase 25 Last Vital Signs Temp 36.4 C 05/26/23 06:37 Pulse 57 L 05/26/23 10:16 Resp 16 05/26/23 06:37 BP 153/66 H 05/26/23 10:16 Pulse Ox 90 L 05/26/23 09:15 Time Spent Time spent with Patient: 40-54 minutes Time was spent: preparing to see the patient(eg.review tests), obtaining and/or reviewing separately otained hiistory, ordering medications,tests, procedures, referring, communicating with other health family member caretaker and indepentently interpreting results
[2023-05-26] MEDS: Ketorolac 15 MG/ML VIAL IVP (14:50)
[2023-05-26 16:00] LABS: C Diff PCR Negative (Negative)
[2023-05-26] MEDS: Lurasidone 40 MG TAB 80 MG PO (17:54)
[2023-05-26 18:00] LABS: Lab Add On Test DONE
[2023-05-26] MEDS: metroNIDAZOLE 500 MG/100 ML BAG 100 MG IVPB (18:00)
[2023-05-26 18:09] LABS: C-Reactive Protein 0.15 mg/dL (0.0-0.3)
[2023-05-26] MEDS: lamoTRIgine 100 MG TAB 200 MG PO (21:22)
[2023-05-26] MEDS: traZODone 100 MG TAB 200 MG PO (21:22)
[2023-05-26] MEDS: CIPROFLOXACIN 400 MG/200 ML BAG 200 MG IVPB (21:23)
[2023-05-27] MEDS: Ketorolac 15 MG/ML VIAL IVP ×2 (01:04→08:34)
[2023-05-27] MEDS: metroNIDAZOLE 500 MG/100 ML BAG 100 MG IVPB ×2 (01:10→10:23)
[2023-05-27] MEDS: Ondansetron 4 MG/2 ML VIAL IVP ×2 (02:54→09:28)
[2023-05-27 03:19] VITALS: BP 106/69; PULSE 54; RESP 18; TEMP 36.1; O2SAT 96
[2023-05-27 07:03] LABS: Abs Immature Grans 0.02 10^3/uL (0.0-0.06); Absolute Basophil Count 0.03 10^3/uL (0.0-0.2); Absolute Eosinophil Count 0.24 10^3/uL (0.0-0.7); Absolute Lymphocyte Count 1.37 10^3/uL (1.2-3.4); Absolute Monocyte Count 0.44 10^3/uL (0.1-0.8); Absolute Neutrophil Count 1.43 10^3/uL (1.2-6.7); Basophils % 0.8; Eosinophils % 6.8; HGB 11.9 g/dL (11.2-15.7); Immature Grans % 0.6; Lymphocytes % 38.8; MCH 32.7 pg (27.0-33.0); MCV 93 fL (80-95); MPV 10.5 fL (8.0-11.0); Monocytes % 12.5; Neutrophils % 40.5; Platelet Count 122 10^3/uL (130-400); RBC 3.64 10^6/uL (3.93-5.22); RDW 13.2 % (11.7-14.6); RDW-SD 45.6 fL; WBC 3.53 10^3/uL (4.4-10.8)
[2023-05-27 07:30] LABS: Anion Gap 9.7 mmol/L (3-11); BUN 4 mg/dL (7-18); C-Reactive Protein 0.17 mg/dL (0.0-0.3); CO2 22.3 mmol/L (21.0-32.0); CREATININE 0.8 mg/dL (0.55-1.02); Calcium 8.3 mg/dL (8.5-10.1); Chloride 101 mmol/L (98-107); Estimated GFR 81.21 (mL/min/1.73m2); Glucose 96 mg/dL (74-106); Potassium 4.1 mmol/L (3.5-5.1); Sodium 133 mmol/L (136-145)
[2023-05-27] MEDS: Sertraline 50 MG TAB 150 MG PO (07:34)
[2023-05-27] MEDS: Lansoprazole 30 MG CAPCR PO (07:34)
[2023-05-27] MEDS: Lisinopril 10 MG TAB PO (07:40)
[2023-05-27 09:24] VITALS: BP 103/59; BP 118/80; PULSE 91; RESP 19; TEMP 36.6; O2SAT 93
[2023-05-27 09:30] LABS: Source Nasal/Nares
[2023-05-27 10:03] LABS: COVID-19 PCR Negative (Negative)
[2023-05-27] MEDS: CIPROFLOXACIN 400 MG/200 ML BAG 200 MG IVPB (11:31)
--- NOTE | 2023-05-27 12:48 | PDOC.CMIN ---
Date of service: 05/27/23 Time of Service: 12:48 Care Management Initial Assmt Initial Assessment REASON FOR HOSPITALIZATION:: Abdominal Pain PREVIOUS FUNCTIONAL STATUS/SOCIAL/FAMILY SUPPORTS:: Benita lives alone in [place]. 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 Benita is active and independent at baseline. She drives. Benita shares that she has a supportive network of friends and neighbors that are supportive. CURRENT FUNCTIONAL STATUS:: Benita was sitting up in bed when CM met with her. She is awake and easily engages in conversation. She uses Valtaren Gel for lower back pain and requests an order for it. CM notified nursing. Her TV is not working and the silence is really bothering her. CM also notified nursing. Benita denies any other concerns at this time. She is hoping to be discharged home today. ADVANCE DIRECTIVES:: None, patient states she has a Will at home Has patient been provided with info about the portal/API?: Yes Did the patient sign up for the portal?: No CODE STATUS:: Full Code INSURANCE COVERAGE / FINANCIAL ISSUES:: Medicaid Medicare CURRENT HOME/COMMUNITY SERVICES/EQUIPMENT:: None PRIMARY CARE PHYSICIAN:: Cathie Strange POTENTIAL DISCHARGE NEEDS:: Follow up appointments, discharge plan of care, transportation PATIENT/FAMILY EDUCATION NEEDS:: Review discharge instructions, limitations, medications and plan to follow up with community providers. Discuss ask me three. ANTICIPATED BARRIERS TO DISCHARGE:: None identified TRANSPORTATION:: Via [facility] PLAN:: Benita will discharge home once medically cleared by provider. She will transport via [facility] private vehicle and follow up with community providers and her discharge plan of care as recommended. No new services are indicated at this time. CM will continue to follow. [facility] All Active Problems (Updated 05/26/23 @ 18:25 by Joanie Salas NP) Discharge planning issues (Acute) Abdominal pain, acute, left lower quadrant (Acute) Abdominal pain (Acute) Diverticulitis of sigmoid colon (Acute) Acute hyponatremia (Acute) Hyperlipidemia (Chronic) Glaucoma (Chronic) Gastroesophageal reflux disease with esophagitis (Chronic) Bipolar I disorder (Chronic) Allergic rhinitis (Chronic) Migraine (Chronic) Multiple cranial nerve palsy (Chronic) Abdominal pain (Chronic) Prediabetes (Chronic) Chronic diarrhea (Chronic) Colon stricture (Acute) Diverticular stricture (Acute) Diverticulitis large intestine (Acute) Medical History 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 denies Diverticulitis of sigmoid colon Essential hypertension TMJ (temporomandibular joint disorder) Surgical History History of bilateral ligation of fallopian tubes History of esophagogastroduodenoscopy History of total vaginal hysterectomy (TVH) (07/03/15) With cystoscopy and rectocele repair S/P BSO (bilateral salpingo-oophorectomy) (07/03/15) S/P cholecystectomy Status post foot surgery Family History Mother Stroke Lung cancer Hypertension Father Heart disease Hyperlipidemia Hypertension Brother Heart disease DOUBLE BYPASS AGE 48 (NON SMOKER) Hyperlipidemia Son Depression Daughter Depression Maternal Grandfather Lung cancer Maternal Grandmother Heart disease Myocardial infarction Paternal Grandfather No problems noted. Paternal Grandmother Diabetes Social History Smoking/Tobacco Use Status: Former Tobacco Use Quit Date: 09/05/77 Smoking risk assessment performed?: Yes Alcohol Intake: never Drug use: Never Substance use type: does not use Housing: house Do you feel safe at home: Yes Do you feel safe in your relationship?: Yes
--- NOTE | 2023-05-27 12:52 | DSE_ITS ---
Date of service: 05/27/23 Time of Service: 12:52 DS: Diagnosis Discharge Diagnosis (1) Diverticulitis of sigmoid colon: (2) Bipolar I disorder: Status: Chronic Discharge Plan Disposition Patient Disposition: Home Condition: Improving Discharge Details Reason For Visit: Diverticulitis Admit Date/Time: 05/26/23 13:11 Admit Provider: Mony Borja Attending Provider: Mony Borja Primary Care Provider: Cathie Strange Hospital Course Hospital Course: This is a 68-year-old female patient with a past medical history significant for diverticulitis who was seen and scoped by our surgeons here at [facility] back in November 2022. She presented here for evaluation of left lower abdominal pain most consistent with her history of diverticulitis. She was CAT scan with no evidence of abscess or perforation and discharged home on Augmentin. She states that she could not tolerate the Augmentin so return to the emergency department. She had intractable nausea and vomiting as well. She was admitted to the medical surgical unit under hospitalist services placed on Cipro and Flagyl. She also received antiemetics for her symptoms. She remained hemodynamically stable. Her diet was advanced which she was tolerating well. Stable and ready for discharge to home she will be given 5 more days of antibiotics to complete a 7-day course. She should follow-up outpatient with her primary care provider or return sooner for new or worsening symptoms. She is discharged to home with no services. Of note she does have Cipro listed on her allergy profile but did not have any symptoms of adverse reaction while on Cipro in the hospital. Discharge is discussed with Dr. Borja Home Meds and New Rx's Prescriptions: New ondansetron 4 mg tablet,disintegrating 4 mg PO Q8H PRNQty: 6 0RF ciprofloxacin HCl 500 mg tablet 500 mg PO BID Qty: 8 0RF metronidazole 500 mg tablet 500 mg PO TID Qty: 12 0RF Continued lurasidone 80 mg tablet 80 mg PO DAILY trazodone 100 mg tablet 200 mg PO QHS polyethylene glycol 3350 17 gram/dose powder 238 g PO ONCE Qty: 238 0RF Rx Instructions: take per colonoscopy instructions bisacodyl [Dulcolax (bisacodyl)] 5 mg tablet,delayed release (DR/EC) 5 mg PO ONCE Qty: 4 0RF Rx Instructions: take per colonoscopy instructions lansoprazole 30 mg capsule,delayed release(DR/EC) 30 mg PO DAILY Qty: 90 3RF Hold Instructions: Changed by Provider cetirizine 10 mg tablet 10 mg PO DAILY PRN (Reason: allergy symptoms) Qty: 90 3RF lisinopril 10 mg tablet 10 mg PO DAILY Qty: 90 3RF diclofenac sodium [Voltaren Arthritis Pain] 1 % gel 2 g topical QID PRN (Reason: joint pain) Qty: 100 1RF Rx Instructions: apply to single elbow, wrist or hand; for hand includes palm/fingers/back of hand rizatriptan [Maxalt-LINER CHECKER] 10 mg tablet,disintegrating 10 mg PO ONCE PRN (Reason: migraine headache) Qty: 14 2RF Rx Instructions: may repeat once after at least 2 hours leprmdqauevo-sstw-asbos acid 18-400 mg-mcg Tablet 1 tab PO DAILY lamotrigine 200 mg tablet 200 mg PO HS Patient Comments: TAKE ONE TABLET BY MOUTH EVERY DAY. STOP MED IF RASH OCCURS sertraline 100 mg tablet 150 mg PO DAILY Patient Comments: TAKE ONE TABLET BY MOUTH EVERY DAY Discontinued amoxicillin-pot clavulanate 875-125 mg tablet 1 tab PO BID Qty: 17 0RF Discharge Instructions Instructions: Diverticulitis (DC) Stand Alone Forms: Nursing Discharge Form Referrals: Cathie Strange NP [Primary Care Provider] - 06/02/23 11:00 am Activity:: Activity as Tolerated Equipment/Supplies:: No Equipment Needed Diet:: As Tolerated Discharge Orders Discharge Orders: Discharge Order (Routine); Ordered 05/27/23 Ordered By: Joanie Salas Discharge Data Discharge Date/Time-TO BE ENTERED AT DEPARTURE: 05/27/23 15:13 DS: Summary Time Spent with Patient providing and/or coordinating discharge services: Less than 30 minutes Status at Discharge Functional status at discharge: independent ambulation Overall status at discharge: patient is back to baseline Mental Status: mental status grossly normal Speech and Movement: speech and movement normal Mood: congruent mood Affect: normal affect Exam Const General: cooperative, healthy appearing, comfortable and no acute distress Nutritional Appearance: average body habitus Orientation: alert, awake and oriented x3 HENMT Head: normal to inspection, normocephalic and atraumatic Face and sinus: normal facial exam Mouth: oral mucosae normal Chest Chest: normal inspection of the chest Resp Effort & Inspection: normal respiratory effort Auscultation: clear to auscultation bilaterally Cardio Rate: regular rate Rhythm: regular rhythm Skin General skin exam: no rashes or lesions noted Neuro General: patient alert, patient awake and patient oriented x3 Extrem General: normal to inspection Psych Mental Status: mental status grossly normal Speech and Movement: speech and movement normal Mood: congruent mood Affect: normal affect DS: Data Vitals/I&O Vitals and I&O: Vital Signs Temperature 36.6 C 05/27/23 09:24 Temperature Source Tympanic 05/27/23 09:24 Pulse 91 H 05/27/23 09:24 Pulse Rhythm Regular 05/27/23 07:35 Respiratory Rate 19 05/27/23 09:24 Respiratory Effort Normal, Non-Labored 05/27/23 07:35 Respiratory Depth Normal 05/27/23 07:35 Respiratory Pattern Normal 05/26/23 23:06 Blood Pressure 103/59 L 05/27/23 09:24 Blood Pressure Mean 94 05/26/23 10:16 Blood Pressure Position Sitting 05/26/23 06:37 Pulse Oximetry 93 05/27/23 09:24 Oxygen Delivery Method Room Air 05/27/23 09:24 Oxygen Flow Rate 0 05/27/23 09:24 Pain Level 2 05/27/23 09:34 Intake & Output 05/26/23 05/27/23 05/27/23 23:59 11:59 23:59 Intake Total 1300 / 2300 200 / 200 Balance 1300 / 2300 200 / 200 Weight 68.039 kg Intake: IV 1300 / 2300 200 / 200 Other: Urine Appearance Clear Comment Pt reports voiding independently x3 overnight in toilet Stool Size Moderate Stool Characteristics Liquid Voiding Methods Toilet Data Completed and Pending Labs on day of discharge: Labs from last 24 hours 05/27/23 05/27/23 05/27/23 09:22 05:35 05:35 WBC 3.53 L RBC 3.64 L Hgb 11.9 D Hct 34.0 L MCV 93 D MCH 32.7 MCHC 35.0 RDW 13.2 Plt Count 122 L MPV 10.5 Immature Gran % 0.6 Neutrophils % 40.5 Lymphocytes % 38.8 Monocytes % 12.5 Eosinophils % 6.8 Basophils % 0.8 Nucleated RBC % 0.0 Absolute Neutrophils 1.43 Absolute Lymphocytes 1.37 Absolute Monocytes 0.44 Absolute Eosinophils 0.24 Absolute Basophils 0.03 Sodium 133 L Potassium 4.1 Chloride 101 Carbon Dioxide 22.3 Anion Gap 9.7 BUN 4 L Creatinine 0.8 Est GFR (CKD-EPI 2020) 81.21 Glucose 96 Calcium 8.3 L C-Reactive Protein 0.17 Stool Description Stool Campylobacter PCR Stl C.difficile Tox PCR Stool Salmonella PCR Stool Shigella PCR Stool Ova & Parasites COVID-19 Source Nasal/Nares SARS-CoV-2 (PCR) Negative Cryptosporidium/Giardia Shiga Toxin (PCR) Add-On Test Request 05/26/23 05/26/23 05/26/23 Unknown 14:51 14:51 WBC RBC Hgb Hct MCV MCH MCHC RDW Plt Count MPV Immature Gran % Neutrophils % Lymphocytes % Monocytes % Eosinophils % Basophils % Nucleated RBC % Absolute Neutrophils Absolute Lymphocytes Absolute Monocytes Absolute Eosinophils Absolute Basophils Sodium Potassium Chloride Carbon Dioxide Anion Gap BUN Creatinine Est GFR (CKD-EPI 2020) Glucose Calcium C-Reactive Protein Stool Description Pending Stool Campylobacter PCR Pending Stl C.difficile Tox PCR Negative Stool Salmonella PCR Pending Stool Shigella PCR Pending Stool Ova & Parasites Pending COVID-19 Source SARS-CoV-2 (PCR) Cryptosporidium/Giardia Pending Shiga Toxin (PCR) Pending Add-On Test Request DONE 05/26/23 05/26/23 12:35 12:35 WBC RBC Hgb Hct MCV MCH MCHC RDW Plt Count MPV Immature Gran % Neutrophils % Lymphocytes % Monocytes % Eosinophils % Basophils % Nucleated RBC % Absolute Neutrophils Absolute Lymphocytes Absolute Monocytes Absolute Eosinophils Absolute Basophils Sodium 129 L Potassium 3.7 Chloride 95 L Carbon Dioxide 25.7 Anion Gap 8.3 BUN 7 Creatinine 0.9 Est GFR (CKD-EPI 2020) 70.51 Glucose 91 Calcium 8.4 L C-Reactive Protein 0.15 Stool Description Stool Campylobacter PCR Stl C.difficile Tox PCR Stool Salmonella PCR Stool Shigella PCR Stool Ova & Parasites COVID-19 Source SARS-CoV-2 (PCR) Cryptosporidium/Giardia Shiga Toxin (PCR) Add-On Test Request [facility] All Active Problems (Updated 05/28/23 @ 00:01 by PAM LOMAS) Abdominal pain, acute, left lower quadrant (Acute) Abdominal pain (Acute) Diverticulitis of sigmoid colon (Acute) Acute hyponatremia (Acute) Hyperlipidemia (Chronic) Glaucoma (Chronic) Gastroesophageal reflux disease with esophagitis (Chronic) Bipolar I disorder (Chronic) Allergic rhinitis (Chronic) Migraine (Chronic) Multiple cranial nerve palsy (Chronic) Abdominal pain (Chronic) Prediabetes (Chronic) Chronic diarrhea (Chronic) Colon stricture (Acute) Diverticular stricture (Acute) Diverticulitis large intestine (Acute) Medical History 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 denies Diverticulitis of sigmoid colon Essential hypertension TMJ (temporomandibular joint disorder) Surgical History History of bilateral ligation of fallopian tubes History of esophagogastroduodenoscopy History of total vaginal hysterectomy (TVH) (07/03/15) With cystoscopy and rectocele repair S/P BSO (bilateral salpingo-oophorectomy) (07/03/15) S/P cholecystectomy Status post foot surgery Family History Mother Stroke Lung cancer Hypertension Father Heart disease Hyperlipidemia Hypertension Brother Heart disease DOUBLE BYPASS AGE 48 (NON SMOKER) Hyperlipidemia Son Depression Daughter Depression Maternal Grandfather Lung cancer Maternal Grandmother Heart disease Myocardial infarction Paternal Grandfather No problems noted. Paternal Grandmother Diabetes Social History Smoking/Tobacco Use Status: Former Tobacco Use Quit Date: 09/05/77 Smoking risk assessment performed?: Yes Alcohol Intake: never Drug use: Never Substance use type: does not use Housing: house Do you feel safe at home: Yes Do you feel safe in your relationship?: Yes Time Spent with Patient Time Spent with Patient: <45 minutes Time was spent: preparing to see the patient(eg.review tests), ordering medications,tests, procedures and counseling the patient
--- NOTE | 2023-05-27 13:03 | PDOC.CMDIS ---
Date of service: 05/27/23 Time of Service: 13:03 LACE Index Scoring Tool Questions: Length of Stay (in days): 1 Was the patient admitted via the E.D.?: Yes E.D. Visits: 5 Answers: Total Score: 8 Risk of Readmission: Low Risk Care Management Discharge Plan Reason for Hospitalization: Abdominal Pain Discharge Plan: Benita is medically cleared for discharge by provider. Transportation is coordinated with [facility]. She will follow up with community providers and discharge plan of care as instructed. No new services are ordered prior to discharge. Patient/Family Education Needs: Review discharge instructions, limitations, medications and plan to follow up with community providers. Discuss ask me three. Services Needed at Discharge: Transportation ([facility] private vehicle w/ Stop at [facility] prior to home arrival. Coordinated by [facility].)
--- NOTE | 2023-05-27 14:08 | CHAPLAIN ---
Benita asked for a clean top sheet when I first walked in. She had spilled some juice on hers and wanted a clean one. When I brought the new sheet, she said she recognized me from a previous admission when I'd given her some Rosary beads. Benita said her two years ago at [facility]. He was an alcoholic, said told me, and she was able to recognize that when he was alive, but she said she having a hard time with that idea now. Benita was discharged later in the day.
[2023-05-28 11:04] LABS: Campylobacter PCR Negative (Negative); Salmonella PCR Negative (Negative); Shiga Toxin PCR Negative (Negative); Shigella/Enteroinvasive Ecoli Negative (Negative)
== END 2023-05-27 15:13 | disposition home or self-care (01) ==
LOC: ER 13:21 → MS 14:30
PROVIDERS: Nurse Practitioner Acute Care; Student in an Organized Health Care Education/Training Program; Admitting Provider Internal Medicine; Emergency Provider Emergency Medicine Emergency Medical Services; PCP Nurse Practitioner Family; Visit Provider Internal Medicine
DX: K57.32 Diverticulitis of large intestine without perforation or abscess without bleeding (principal); F31.9 Bipolar disorder, unspecified; R11.2 Nausea with vomiting, unspecified; E78.5 Hyperlipidemia, unspecified; H40.9 Unspecified glaucoma; K21.00 Gastro-esophageal reflux disease with esophagitis, without bleeding; J30.9 Allergic rhinitis, unspecified; G43.909 Migraine, unspecified, not intractable, without status migrainosus; R73.03 Prediabetes; K52.9 Noninfective gastroenteritis and colitis, unspecified; G52.7 Disorders of multiple cranial nerves; Z79.899 Other long term (current) drug therapy
CPT/HCPCS: 36415; 80048; 80053; 83690; 87329; 87493; 87505; 87635; 96365; 96366; 96374; 96375; 96376; 99285; 74177; 85025; 86140; 87177; 99222; 99238; G0378; J0744; J1885; J2270; J2405

== ENCOUNTER 2023-06-01 07:32 | Emergency (ER) | payer MEDICARE, MEDICAID, SELFPAY ==
[2023-06-01 07:34] VITALS: BP 158/81; PULSE 58; RESP 20; TEMP 36.4; O2SAT 98
[2023-06-01] MEDS: Ketorolac 15 MG/ML VIAL IM (08:01)
[2023-06-01 08:35] LABS: Abs Immature Grans 0.02 10^3/uL (0.0-0.06); Absolute Basophil Count 0.03 10^3/uL (0.0-0.2); Absolute Eosinophil Count 0.14 10^3/uL (0.0-0.7); Absolute Lymphocyte Count 1.14 10^3/uL (1.2-3.4); Absolute Monocyte Count 0.37 10^3/uL (0.1-0.8); Absolute Neutrophil Count 2.77 10^3/uL (1.2-6.7); Basophils % 0.7; Eosinophils % 3.1; HGB 13.6 g/dL (11.2-15.7); Immature Grans % 0.4; Lymphocytes % 25.5; MCH 32.7 pg (27.0-33.0); MCHC 34.9 % (32.0-36.0); MCV 94 fL (80-95); MPV 9.6 fL (8.0-11.0); Monocytes % 8.3; Platelet Count 158 10^3/uL (130-400); RBC 4.16 10^6/uL (3.93-5.22); RDW 13.7 % (11.7-14.6); RDW-SD 46.4 fL; WBC 4.47 10^3/uL (4.4-10.8)
[2023-06-01 08:44] LABS: ALT 20 U/L (14-59); AST 14 U/L (15-37); Albumin 3.8 g/dL (3.4-5.0); Alkaline Phosphatase 52 U/L (46-116); Anion Gap 7.9 mmol/L (3-11); BUN 5 mg/dL (7-18); Bilirubin, Total 0.3 mg/dL (0.2-1.0); CO2 27.1 mmol/L (21.0-32.0); Calcium 9.1 mg/dL (8.5-10.1); Chloride 102 mmol/L (98-107); Estimated GFR 62.13 (mL/min/1.73m2); Glucose 93 mg/dL (74-106); Potassium 3.9 mmol/L (3.5-5.1); Sodium 137 mmol/L (136-145); Total Protein 6.9 g/dL (6.4-8.2)
--- NOTE | 2023-06-01 08:49 | ED.GENADUL_ITS ---
Discharge Plan Disposition Patient Disposition: Home Condition: Good Discharge Details Clinical Impression: Diverticulitis large intestine Primary Care Provider: Cathie Strange ED Provider: Rose Marie Sy Meds and New Rx's Prescriptions: No Action lurasidone 80 mg tablet 80 mg PO DAILY trazodone 100 mg tablet 200 mg PO QHS polyethylene glycol 3350 17 gram/dose powder 238 g PO ONCE Qty: 238 0RF Rx Instructions: take per colonoscopy instructions bisacodyl [Dulcolax (bisacodyl)] 5 mg tablet,delayed release (DR/EC) 5 mg PO ONCE Qty: 4 0RF Rx Instructions: take per colonoscopy instructions lansoprazole 30 mg capsule,delayed release(DR/EC) 30 mg PO DAILY Qty: 90 3RF Hold Instructions: Changed by Provider cetirizine 10 mg tablet 10 mg PO DAILY PRN (Reason: allergy symptoms) Qty: 90 3RF lisinopril 10 mg tablet 10 mg PO DAILY Qty: 90 3RF diclofenac sodium [Voltaren Arthritis Pain] 1 % gel 2 g topical QID PRN (Reason: joint pain) Qty: 100 1RF Rx Instructions: apply to single elbow, wrist or hand; for hand includes palm/fingers/back of hand rizatriptan [Maxalt-PRODUCTION MECHANIC TIN CANS] 10 mg tablet,disintegrating 10 mg PO ONCE PRN (Reason: migraine headache) Qty: 14 2RF Rx Instructions: may repeat once after at least 2 hours xgbxolahhyli-jyxs-btqdf acid 18-400 mg-mcg Tablet 1 tab PO DAILY lamotrigine 200 mg tablet 200 mg PO HS Patient Comments: TAKE ONE TABLET BY MOUTH EVERY DAY. STOP MED IF RASH OCCURS sertraline 100 mg tablet 150 mg PO DAILY Patient Comments: TAKE ONE TABLET BY MOUTH EVERY DAY ondansetron 4 mg tablet,disintegrating 4 mg PO Q8H PRNQty: 6 0RF ciprofloxacin HCl 500 mg tablet 500 mg PO BID Qty: 8 0RF metronidazole 500 mg tablet 500 mg PO TID Qty: 12 0RF Discharge Instructions Instructions: Diverticulitis (ED), Diverticulitis Diet (ED) Additional Instructions: Take your antibiotic as prescribed. Tylenol/ibuprofen over the counter as needed for pain; follow the directions on the bottle. Call your primary care doctor today to schedule an appointment within the next 3 days to follow up on your visit here. Return to the emergency department for new or worsening symptoms including fever, new/different/worse pain, inability to keep down fluids, or if you have any other concerns. Medical Decision Making 68yo F with recent diverticulitis flare presenting for persistent abdominal pain. Medical records reviewed; recent hospital obs stat 05/26-05/27 at onset of symptoms, discharged home on PO abx. Patient reports she has not been taking antibiotics because I get antibio-celso; requests Klonopin. Vital signs and physical exam reassuring, benign abdominal exam. Would not pursue repeat imaging. Labs reviewed as below, CBC & CMP unremarkable with no leukocytosis or significant electrolyte abnormalities. Given toradol for pain; on reassessment reports feeling improved and requesting discharge home. Abdominal exam remains benign. Advised taking antibiotics as prescribed, tylenol/ibuprofen for pain. Discharged home; discharge instructions including return precautions were reviewed with patient who verbalized understanding. All questions were answered and they are in full agreement with the plan. Lab Data Lab results reviewed: Yes I reviewed the patient's lab results. Labs: Laboratory Tests Range/Units 06/01/23 06/01/23 08:24 08:24 WBC (4.4-10.8) 10^3/uL 4.47 RBC (3.93-5.22) 10^6/uL 4.16 Hgb (11.2-15.7) g/dL 13.6 Hct (36.0-46.0) % 39.0 MCV (80-95) fL 94 MCH (27.0-33.0) pg 32.7 MCHC (32.0-36.0) % 34.9 RDW (11.7-14.6) % 13.7 Plt Count (130-400) 10^3/uL 158 MPV (8.0-11.0) fL 9.6 Immature Gran % 0.4 Neutrophils % 62.0 Lymphocytes % 25.5 Monocytes % 8.3 Eosinophils % 3.1 Basophils % 0.7 Nucleated RBC % (0.0-0.3) % 0.0 Absolute Neutrophils (1.2-6.7) 10^3/uL 2.77 Absolute Lymphocytes (1.2-3.4) 10^3/uL 1.14 L Absolute Monocytes (0.1-0.8) 10^3/uL 0.37 Absolute Eosinophils (0.0-0.7) 10^3/uL 0.14 Absolute Basophils (0.0-0.2) 10^3/uL 0.03 Sodium (136-145) mmol/L 137 Potassium (3.5-5.1) mmol/L 3.9 Chloride (98-107) mmol/L 102 Carbon Dioxide (21.0-32.0) mmol/L 27.1 Anion Gap (3-11) mmol/L 7.9 BUN (7-18) mg/dL 5 L Creatinine (0.55-1.02) mg/dL 1.0 Est GFR (CKD-EPI 2020) (mL/min/1.73m2) 62.13 Glucose (74-106) mg/dL 93 Calcium (8.5-10.1) mg/dL 9.1 Total Bilirubin (0.2-1.0) mg/dL 0.3 AST (15-37) U/L 14 L ALT (14-59) U/L 20 Alkaline Phosphatase (46-116) U/L 52 Total Protein (6.4-8.2) g/dL 6.9 Albumin (3.4-5.0) g/dL 3.8 HPI General Mode of arrival: ambulatory . Date/Time Provider Initiated Documentation: 06/01/23 07:33 . Limitations to Documentation: no limitations . Information obtained by: patient . HPI Narrative: 68yo F with recent diverticulitis flare presenting for persistent abdominal pain. Recent hospital obs stat 05/26-05/27 at onset of symptoms, discharged home on PO abx. Reports she has not been taking antibiotics because I get antibio- celso; requests Klonopin. Pain is dull, not relieved by Tylenol, and has no aggravating factors. Associated nausea (no vomiting) and diarrhea. Reports chronic back unchanged from baseline aside from hurting more on the drive in to the emergency department. Otherwise in her usual state of health with no fevers, chills, rash, dysuria, hematuria, numbness, tingling, weakness, urinary incontinence, bowel incontinence, or other concerns. Related Data Home Medications Medication Instructions Recorded Confirmed lamotrigine 200 mg tablet 200 mg PO HS 02/10/22 06/01/23 multivitamin-ferrous 1 tab PO DAILY 02/10/22 06/01/23 fumarate-folic acid 18 mg-400 mcg tablet sertraline 100 mg tablet 150 mg PO DAILY 02/10/22 06/01/23 bisacodyl 5 mg tablet,delayed 5 mg PO ONCE colonscopy bowel prep 11/29/22 06/01/23 release (Dulcolax (bisacodyl)) #4 tabs polyethylene glycol 3350 17 238 g PO ONCE colonoscopy prep 11/29/22 06/01/23 gram/dose oral powder #238 grams lurasidone 80 mg tablet 80 mg PO DAILY 04/18/23 06/01/23 trazodone 100 mg tablet 200 mg PO QHS 04/18/23 06/01/23 cetirizine 10 mg tablet 10 mg PO DAILY PRN allergy 04/20/23 05/26/23 symptoms #90 tabs lansoprazole 30 mg capsule,delayed 30 mg PO DAILY #90 caps 04/20/23 06/01/23 release lisinopril 10 mg tablet 10 mg PO DAILY #90 tabs 05/02/23 06/01/23 diclofenac sodium 1 % topical gel 2 g topical QID PRN joint pain 05/11/23 06/01/23 (Voltaren Arthritis Pain) #100 grams rizatriptan 10 mg disintegrating 10 mg PO ONCE PRN migraine 05/26/23 06/01/23 tablet (Maxalt-PRODUCTION MECHANIC TIN CANS) headache #14 tabs ciprofloxacin HCl 500 mg tablet 500 mg PO BID #8 tabs 05/27/23 metronidazole 500 mg tablet 500 mg PO TID #12 tabs 05/27/23 ondansetron 4 mg disintegrating 4 mg PO Q8H PRN #6 tabs 05/27/23 06/01/23 tablet Previous Rx's Medication Instructions Recorded bisacodyl 5 mg tablet,delayed 5 mg PO ONCE colonscopy bowel prep 11/29/22 release (Dulcolax (bisacodyl)) #4 tabs polyethylene glycol 3350 17 238 g PO ONCE colonoscopy prep 11/29/22 gram/dose oral powder #238 grams cetirizine 10 mg tablet 10 mg PO DAILY PRN allergy 04/20/23 symptoms #90 tabs lansoprazole 30 mg capsule,delayed 30 mg PO DAILY #90 caps 04/20/23 release lisinopril 10 mg tablet 10 mg PO DAILY #90 tabs 05/02/23 diclofenac sodium 1 % topical gel 2 g topical QID PRN joint pain 05/11/23 (Voltaren Arthritis Pain) #100 grams rizatriptan 10 mg disintegrating 10 mg PO ONCE PRN migraine 05/26/23 tablet (Maxalt-PRODUCTION MECHANIC TIN CANS) headache #14 tabs ciprofloxacin HCl 500 mg tablet 500 mg PO BID #8 tabs 05/27/23 metronidazole 500 mg tablet 500 mg PO TID #12 tabs 05/27/23 ondansetron 4 mg disintegrating 4 mg PO Q8H PRN #6 tabs 05/27/23 tablet Allergies Allergy/AdvReac Type Severity Reaction Status Date / Time latex AdvReac Severe Skin Rash Verified 05/25/23 20:23 amoxicillin [From Augmentin] AdvReac Agitation Unverified 06/01/23 07:40 azithromycin [From Zithromax] AdvReac headache, Verified 05/25/23 20:23 hearing loss,double vision, DAVILA ciprofloxacin [From Cipro] AdvReac Dizziness/L Verified 05/25/23 20:23 ightheade clavulanic acid AdvReac Agitation Unverified 06/01/23 07:40 [From Augmentin] codeine AdvReac GI upset Verified 05/25/23 20:23 doxycycline AdvReac Other (See Unverified 05/25/23 20:23 Comment) metronidazole [From Flagyl] AdvReac Agitation Unverified 06/01/23 07:40 Penicillins AdvReac Other (See Unverified 05/25/23 20:23 Comment) Sulfa (Sulfonamide AdvReac anxious Verified 05/25/23 20:23 Antibiotics) General Stated Complaint: GenMedical MARIAM: 3 Review of Systems Narrative: see HPI PFSH All Active Problems (Updated 06/01/23 @ 09:02 by Rose Marie Sy MD) Abdominal pain, acute, left lower quadrant (Acute) Abdominal pain (Acute) Diverticulitis of sigmoid colon (Acute) Acute hyponatremia (Acute) Hyperlipidemia (Chronic) Glaucoma (Chronic) Gastroesophageal reflux disease with esophagitis (Chronic) Bipolar I disorder (Chronic) Allergic rhinitis (Chronic) Migraine (Chronic) Multiple cranial nerve palsy (Chronic) Abdominal pain (Chronic) Prediabetes (Chronic) Chronic diarrhea (Chronic) Colon stricture (Acute) Diverticular stricture (Acute) Diverticulitis large intestine (Acute) Medical History Cramer's esophagus On 2009 EGD but not on 2013 EGD Diabetes mellitus pt. denies Diverticulitis of sigmoid colon Essential hypertension TMJ (temporomandibular joint disorder) Surgical History History of bilateral ligation of fallopian tubes History of esophagogastroduodenoscopy History of total vaginal hysterectomy (TVH) (07/03/15) With cystoscopy and rectocele repair S/P BSO (bilateral salpingo-oophorectomy) (07/03/15) S/P cholecystectomy Status post foot surgery Family History Mother Stroke Lung cancer Hypertension Father Heart disease Hyperlipidemia Hypertension Brother Heart disease DOUBLE BYPASS AGE 48 (NON SMOKER) Hyperlipidemia Son Depression Daughter Depression Maternal Grandfather Lung cancer Maternal Grandmother Heart disease Myocardial infarction Paternal Grandfather No problems noted. Paternal Grandmother Diabetes Social History Smoking/Tobacco Use Status: Former Tobacco Use Quit Date: 09/05/77 Smoking risk assessment performed?: Yes Alcohol Intake: never Drug use: Never Substance use type: does not use Housing: house Do you feel safe at home: Yes Do you feel safe in your relationship?: Yes Exam Narrative Exam Narrative: General: Alert, well appearing, well nourished, in no acute distress. Head: Normocephalic, atraumatic Neck: Trachea midline, Neck supple. ENT: MMM. No oropharygeal lesions or exudate. Cardiac: RRR, no murmurs appreciated Resp: No respiratory distress. CTAB. Abd: Soft, non-distended, nontender : No suprapubic tenderness. Extremities: No deformities. No peripheral edema. Neurologic: GCS 15. Moves all extremities freely against gravity Psych: Denies SI/HI/AH/VH. Does not appear to be responding to internal stimuli Course Vital Signs Vital signs: Vital Signs Temperature 36.4 C L 06/01/23 07:34 Pulse 58 L 06/01/23 07:34 Respiratory Rate 20 06/01/23 07:34 Blood Pressure 158/81 H 06/01/23 07:34 Pulse Oximetry 98 06/01/23 07:34 Temperature 36.4 C L 06/01/23 07:34 Temperature Source Skin 06/01/23 07:34 Pulse 58 L 06/01/23 07:34 Respiratory Rate 20 06/01/23 07:34 Respiratory Effort Normal 06/01/23 07:48 Respiratory Depth Normal 06/01/23 07:48 Respiratory Pattern Normal 06/01/23 07:48 Blood Pressure 158/81 H 06/01/23 07:34 Blood Pressure Position Sitting 06/01/23 07:34 Pulse Oximetry 98 06/01/23 07:34 Oxygen Delivery Method Room Air 06/01/23 07:34 Oxygen Flow Rate 0 06/01/23 07:34 Pain Level 7 06/01/23 07:34 Lab/Test Results Lab/Test Results: Laboratory Tests Range/Units 06/01/23 06/01/23 08:24 08:24 WBC (4.4-10.8) 10^3/uL 4.47 RBC (3.93-5.22) 10^6/uL 4.16 Hgb (11.2-15.7) g/dL 13.6 Hct (36.0-46.0) % 39.0 MCV (80-95) fL 94 MCH (27.0-33.0) pg 32.7 MCHC (32.0-36.0) % 34.9 RDW (11.7-14.6) % 13.7 Plt Count (130-400) 10^3/uL 158 MPV (8.0-11.0) fL 9.6 Immature Gran % 0.4 Neutrophils % 62.0 Lymphocytes % 25.5 Monocytes % 8.3 Eosinophils % 3.1 Basophils % 0.7 Nucleated RBC % (0.0-0.3) % 0.0 Absolute Neutrophils (1.2-6.7) 10^3/uL 2.77 Absolute Lymphocytes (1.2-3.4) 10^3/uL 1.14 L Absolute Monocytes (0.1-0.8) 10^3/uL 0.37 Absolute Eosinophils (0.0-0.7) 10^3/uL 0.14 Absolute Basophils (0.0-0.2) 10^3/uL 0.03 Sodium (136-145) mmol/L 137 Potassium (3.5-5.1) mmol/L 3.9 Chloride (98-107) mmol/L 102 Carbon Dioxide (21.0-32.0) mmol/L 27.1 Anion Gap (3-11) mmol/L 7.9 BUN (7-18) mg/dL 5 L Creatinine (0.55-1.02) mg/dL 1.0 Est GFR (CKD-EPI 2020) (mL/min/1.73m2) 62.13 Glucose (74-106) mg/dL 93 Calcium (8.5-10.1) mg/dL 9.1 Total Bilirubin (0.2-1.0) mg/dL 0.3 AST (15-37) U/L 14 L ALT (14-59) U/L 20 Alkaline Phosphatase (46-116) U/L 52 Total Protein (6.4-8.2) g/dL 6.9 Albumin (3.4-5.0) g/dL 3.8
== END 2023-06-01 12:15 | disposition home or self-care (01) ==
PROVIDERS: Emergency Provider Student in an Organized Health Care Education/Training Program; PCP Nurse Practitioner Family
DX: R10.9 Unspecified abdominal pain (principal); K57.92 Diverticulitis of intestine, part unspecified, without perforation or abscess without bleeding
CPT/HCPCS: 36415; 80053; 96372; 99284; 85025; J1885

== ENCOUNTER 2023-07-26 16:16 | Outpatient (REF) | payer MEDICARE, MEDICAID, SELFPAY ==
[2023-07-29 11:46] LABS: Adenovirus F40/41 Negative (Negative); Astrovirus Negative (Negative); C. difficile toxin Negative (Negative); Cryptosporidium species Negative (Negative); Cyclospora cayetanensis Negative (Negative); Entamoeba histolytica Negative (Negative); Enteroaggregative E.coli(EAEC) Negative (Negative); Enteropathogenic E.coli (EPEC) Negative (Negative); Enterotoxigenic E.coli (ETEC) Negative (Negative); Norovirus GI/GII Negative (Negative); Plesiomonas shigelloides Negative (Negative); Salmonella species Negative (Negative); Sapovirus Negative (Negative); Shiga toxin producing E.coli Negative (Negative); Shigella/Enteroinvasive E.coli Negative (Negative); Specimen Source STOOL; Vibrio cholerae Negative (Negative); Yersinia species Negative (Negative)
[2023-07-29 14:44] LABS: Helicobacter pylori Ag, Feces Negative (Negative)
[2023-08-01 13:02] LABS: Calprotectin <50.0 mcg/g
== END 2023-07-26 16:17 | disposition home or self-care (01) ==
LOC: LBN 16:16
PROVIDERS: PCP Nurse Practitioner Family; Visit Provider Nurse Practitioner Adult Health
DX: R19.5 Other fecal abnormalities (principal)
CPT/HCPCS: 87338; 87507; 83993

== ENCOUNTER 2023-09-18 09:26 | Emergency (ER) | payer MEDICARE, MEDICAID, SELFPAY ==
[2023-09-18 09:29] VITALS: BP 196/102; PULSE 102; RESP 18; TEMP 36.9; O2SAT 94
--- NOTE | 2023-09-18 09:31 | W.ED.GENAD ---
HPI General Stated Complaint: Anxiety MARIAM: 4 Date/Time Provider Initiated Documentation: 09/18/23 09:27. HPI Narrative: MDM This is an overall well-appearing mildly tachycardic but normothermic 68-year-old female with history of anxiety and abdominal pain but reassuring abdominal exam reassuring against need for emergent CT scan. No left lower quadrant tenderness so I am not concerned for diverticulitis. Given no vomiting I am not concerned for small bowel obstruction. No right lower quadrant tenderness to suggest appendicitis. No pain out of proportion to suggest necrotizing soft tissue infection. In the absence of nausea, chest pain, and shortness of breath I am not concerned for ACS so I did not obtain an ECG nor a troponin. Patient denies routine ethanol so my suspicion for withdrawal is low though she is hypertensive and mildly tachycardic. She reports that she is due for an endoscopy in several weeks. She also has transitioning off of pantoprazole. If her labs are reassuring anticipate trial of famotidine and mylanta. No fevers no diarrhea to suggest C. difficile. She has intermittently had chronic diverticulitis but given her abdominal exam will defer CT scan at this point time. No cough nore fevers to suggest PNA. Given soft abdomen and no hx of EtOH abuse my suspicion for pancreatitis is low. No hernias on exam. No bloody diarrhea to suggest mesenteric ischemia so I did not order a lactate. No LLQ tenderness and recently post- nor a vscular patient so doubt splenic arterial aneurysm. 11:15 AM CBC lacks anemia thrombocytopenia and leukocytosis. Patient requested a suppository so I ordered a Fleet enema. 11:45 AM Comprehensive metabolic panel showing very mild hyponatremia. No JORDANA. Mild hyperglycemia but no anion gap and normal bicarbonate??not consistent with DKA. Very mild hypercalcemia. Reassuring LFTs. Will provide patient with prescription for melatonin and advised PCP follow-up with return indications for worsening pain inability tolerate p.o. or any other concerns. Patient ultimately declined enema. HR normalized in the ED & BP improved. Chronic conditions affecting the care of the patient: Chronic diverticulitis History obtained from an outside historian: N/A External record review: [facility] [place] Medications: Famotidine Mylanta Social determinants of health affecting disposition: N/A Management discussed with: N/A Treatment/interventions considered: N/A Response to therapies provided: N/A HPI This is a 68-year-old female with a history of bipolar disorder gastric reflux chronic diverticulitis arrived to the emergency department via private vehicle in the setting of anxiety and difficulty sleeping in addition to mild abdominal pain. Patient reports that she has a history of severe anxiety. She reports generalized mild abdominal pain but denies nausea vomiting cramping and diarrhea. Patient has not taken any recent falls. She has had no fevers. No chest pain. No shortness of breath. She denies routine tobacco, ethanol, and illicits. She has not lost control of her bowels or bladder. She denies any headaches. She does report that her sister last week but he is not feeling suicidal or homicidal. Exam General: Well-appearing in no acute distress speaking in complete sentences. Intermittently pacing in room. Head: Normocephalic, atraumatic. Eye: Extraocular eye movements intact. No conjunctival injection. No scleral icterus. Ear, nose, mouth, throat: Grossly normal inspection. Normal voice, handling secretions normally. Neck: Trachea midline. Cardiovascular: Well-perfused distal extremities. Regular rate and rhythm Respiratory: Nonlabored respiration. Clear lungs bilaterally Gastrointestinal: Nondistended abdomen. Soft nontender. No rebound. No guarding. Musculoskeletal: No edema. Moving all 4 extremities spontaneously. Skin: Normal for age and race, grossly normal temperature and turgor. No acute rash. Neurologic: Alert and appropriate, no apparent acute deficits. GCS 15. Psychiatric: Mood and manner are appropriate. Grooming and personal hygiene are appropriate. Related Data Home Medications Medication Instructions Recorded Confirmed lamotrigine 200 mg tablet 200 mg PO HS 02/10/22 09/18/23 multivitamin-ferrous 1 tab PO DAILY 02/10/22 09/18/23 fumarate-folic acid 18 mg-400 mcg tablet sertraline 100 mg tablet 200 mg PO DAILY 02/10/22 09/18/23 lurasidone 80 mg tablet 80 mg PO DAILY 04/18/23 09/18/23 trazodone 100 mg tablet 200 mg PO QHS 04/18/23 09/18/23 cetirizine 10 mg tablet 10 mg PO DAILY PRN allergy 04/20/23 09/18/23 symptoms #90 tabs lansoprazole 30 mg capsule,delayed 30 mg PO DAILY #90 caps 04/20/23 09/18/23 release lisinopril 10 mg tablet 10 mg PO DAILY #90 tabs 05/02/23 09/18/23 diclofenac sodium 1 % topical gel 2 g topical QID PRN joint pain 05/11/23 09/18/23 (Voltaren Arthritis Pain) #100 grams rizatriptan 10 mg disintegrating 10 mg PO ONCE PRN migraine 09/12/23 09/18/23 tablet (Maxalt-ORTHOPEDIC SPECIALIST) headache #14 tabs melatonin 5 mg capsule 5 mg PO QHS PRN #14 caps 09/18/23 Previous Rx's Medication Instructions Recorded cetirizine 10 mg tablet 10 mg PO DAILY PRN allergy 04/20/23 symptoms #90 tabs lansoprazole 30 mg capsule,delayed 30 mg PO DAILY #90 caps 04/20/23 release lisinopril 10 mg tablet 10 mg PO DAILY #90 tabs 05/02/23 diclofenac sodium 1 % topical gel 2 g topical QID PRN joint pain 05/11/23 (Voltaren Arthritis Pain) #100 grams rizatriptan 10 mg disintegrating 10 mg PO ONCE PRN migraine 09/12/23 tablet (Maxalt-ORTHOPEDIC SPECIALIST) headache #14 tabs melatonin 5 mg capsule 5 mg PO QHS PRN #14 caps 09/18/23 Allergies Allergy/AdvReac Type Severity Reaction Status Date / Time latex AdvReac Severe Skin Rash Verified 09/18/23 09:31 amoxicillin [From Augmentin] AdvReac Agitation Unverified 09/18/23 09:31 azithromycin [From Zithromax] AdvReac headache, Verified 09/18/23 09:31 hearing loss,double vision, DAVILA ciprofloxacin [From Cipro] AdvReac Dizziness/L Verified 09/18/23 09:31 ightheade clavulanic acid AdvReac Agitation Unverified 09/18/23 09:31 [From Augmentin] codeine AdvReac GI upset Verified 09/18/23 09:31 doxycycline AdvReac Other (See Unverified 09/18/23 09:31 Comment) metronidazole [From Flagyl] AdvReac Agitation Unverified 06/30/23 10:52 Penicillins AdvReac Other (See Unverified 09/18/23 09:31 Comment) Sulfa (Sulfonamide AdvReac anxious Verified 09/18/23 09:31 Antibiotics) PFSH All Active Problems (Updated 09/18/23 @ 11:50 by Dennis Willis MD) Abdominal pain (Acute) Diverticulitis large intestine (Acute) Colon stricture (Acute) Diverticular stricture (Acute) Chronic diarrhea (Chronic) Hyperlipidemia (Chronic) Glaucoma (Chronic) Gastroesophageal reflux disease with esophagitis (Chronic) Bipolar I disorder (Chronic) Allergic rhinitis (Chronic) Migraine (Chronic) Multiple cranial nerve palsy (Chronic) Prediabetes (Chronic) Medical History (Updated 09/18/23 @ 11:50 by Dennis Willis MD) TMJ (temporomandibular joint disorder) Diverticulitis of sigmoid colon Diabetes mellitus Cramer's esophagus On 2009 EGD but not on 2012 EGD Essential hypertension Surgical History S/P cholecystectomy S/P BSO (bilateral salpingo-oophorectomy) (07/03/15) Status post foot surgery History of total vaginal hysterectomy (TVH) (07/03/15) With cystoscopy and rectocele repair History of esophagogastroduodenoscopy History of bilateral ligation of fallopian tubes Family History Mother Stroke Lung cancer Hypertension Father Heart disease Hyperlipidemia Hypertension Brother Heart disease DOUBLE BYPASS AGE 48 (NON SMOKER) Hyperlipidemia Son Depression Daughter Depression Maternal Grandfather Lung cancer Maternal Grandmother Heart disease Myocardial infarction Paternal Grandfather No problems noted. Paternal Grandmother Diabetes Social History Smoking/Tobacco Use Status: Former Tobacco Use Quit Date: 09/05/77 Smoking risk assessment performed?: Yes Alcohol Intake: never Drug use: Never Substance use type: does not use Housing: house Do you feel safe at home: Yes Do you feel safe in your relationship?: Yes Course Vital Signs Vital signs: Vital Signs Temperature 36.9 C 09/18/23 09:29 Pulse 102 H 09/18/23 09:29 Respiratory Rate 18 09/18/23 09:29 Blood Pressure 196/102 H 09/18/23 09:29 Pulse Oximetry 94 09/18/23 09:29 Temperature 36.9 C 09/18/23 09:29 Pulse 102 H 09/18/23 09:29 Respiratory Rate 18 09/18/23 09:29 Blood Pressure 196/102 H 09/18/23 09:29 Pulse Oximetry 94 09/18/23 09:29 Oxygen Delivery Method Room Air 09/18/23 09:29 Oxygen Flow Rate 0 09/18/23 09:29 Medical Decision Making Quality:SDOH Health Related Social Needs: No Data to Display Discharge Plan Disposition Patient Disposition: Home Discharge Details Clinical Impression: Abdominal pain Primary Care Provider: Cathie Strange ED Provider: Dennis Willis Home Meds and New Rx's Prescriptions: New melatonin 5 mg capsule 5 mg PO QHS PRNQty: 14 0RF Continued lurasidone 80 mg tablet 80 mg PO DAILY trazodone 100 mg tablet 200 mg PO QHS lansoprazole 30 mg capsule,delayed release(DR/EC) 30 mg PO DAILY Qty: 90 3RF Hold Instructions: Changed by Provider cetirizine 10 mg tablet 10 mg PO DAILY PRN (Reason: allergy symptoms) Qty: 90 3RF lisinopril 10 mg tablet 10 mg PO DAILY Qty: 90 3RF diclofenac sodium [Voltaren Arthritis Pain] 1 % gel 2 g topical QID PRN (Reason: joint pain) Qty: 100 1RF Rx Instructions: apply to single elbow, wrist or hand; for hand includes palm/fingers/back of hand rizatriptan [Maxalt-ORTHOPEDIC SPECIALIST] 10 mg tablet,disintegrating 10 mg PO ONCE PRN (Reason: migraine headache) Qty: 14 2RF Rx Instructions: may repeat once after at least 2 hours ycxojtyuzsio-lcrq-mzehl acid 18-400 mg-mcg Tablet 1 tab PO DAILY lamotrigine 200 mg tablet 200 mg PO HS Patient Comments: TAKE ONE TABLET BY MOUTH EVERY DAY. STOP MED IF RASH OCCURS sertraline 100 mg tablet 200 mg PO DAILY Patient Comments: TAKE ONE TABLET BY MOUTH EVERY DAY Discharge Instructions Instructions: Abdominal Pain (ED) Additional Instructions: You were seen in the emergency department for your abdominal pain. Your labs shows that your kidneys are working well and you have no sign of infection. As we discussed, please return to the emergency department if you develop fevers chills cannot eat or drink as result of nausea or vomiting or if you have any other concerns. Discharge Data Discharge Date/Time-TO BE ENTERED AT DEPARTURE: 09/18/23 12:13
[2023-09-18] MEDS: Ondansetron O.D.T. 4 MG TABEF PO (10:29)
[2023-09-18] MEDS: Acetaminophen 500 MG TAB 1000 MG PO (10:29)
[2023-09-18 10:34] VITALS: BP 183/94; PULSE 94
[2023-09-18] MEDS: Famotidine 20 MG TAB 40 MG PO (10:34)
[2023-09-18] MEDS: Mylanta Suspension 30 ML CUP PO (10:34)
[2023-09-18 11:00] LABS: Abs Immature Grans 0.06 10^3/uL (0.0-0.06); Absolute Basophil Count 0.04 10^3/uL (0.0-0.2); Absolute Eosinophil Count 0.18 10^3/uL (0.0-0.7); Absolute Lymphocyte Count 1.46 10^3/uL (1.2-3.4); Absolute Monocyte Count 0.76 10^3/uL (0.1-0.8); Absolute Neutrophil Count 4.13 10^3/uL (1.2-6.7); Basophils % 0.6; Eosinophils % 2.7; HCT 43.5 % (36.0-46.0); HGB 14.8 g/dL (11.2-15.7); Immature Grans % 0.9; MCH 32.4 pg (27.0-33.0); MCV 95 fL (80-95); MPV 9.6 fL (8.0-11.0); Monocytes % 11.5; Neutrophils % 62.3; Platelet Count 161 10^3/uL (130-400); RBC 4.57 10^6/uL (3.93-5.22); RDW 11.6 % (11.7-14.6); RDW-SD 40.7 fL; WBC 6.63 10^3/uL (4.4-10.8)
[2023-09-18 11:37] LABS: ALT 17 U/L (14-59); AST 12 U/L (15-37); Albumin 4.7 g/dL (3.4-5.0); Alkaline Phosphatase 56 U/L (46-116); Anion Gap 9.7 mmol/L (3-11); BUN 12 mg/dL (7-18); Bilirubin, Total 0.5 mg/dL (0.2-1.0); CO2 29.3 mmol/L (21.0-32.0); CREATININE 0.9 mg/dL (0.55-1.02); Calcium 10.6 mg/dL (8.5-10.1); Chloride 96 mmol/L (98-107); Estimated GFR 70.51 (mL/min/1.73m2); Glucose 117 mg/dL (74-106); Potassium 4.6 mmol/L (3.5-5.1); Sodium 135 mmol/L (136-145); Total Protein 8.1 g/dL (6.4-8.2)
== END 2023-09-18 12:13 | disposition home or self-care (01) ==
PROVIDERS: Emergency Provider Emergency Medicine; PCP Nurse Practitioner Family
DX: R10.9 Unspecified abdominal pain (principal); F41.9 Anxiety disorder, unspecified; G47.00 Insomnia, unspecified; E11.9 Type 2 diabetes mellitus without complications; I10 Essential (primary) hypertension; Z87.891 Personal history of nicotine dependence
CPT/HCPCS: 80053; 99283; 85025

== ENCOUNTER 2023-10-03 04:04 | Outpatient (CLI) | payer MEDICARE, MEDICAID, SELFPAY ==
[2023-10-03 12:22] LABS: HCT 39.8 % (36.0-46.0); HGB 13.6 g/dL (11.2-15.7); MCH 32.9 pg (27.0-33.0); MCHC 34.2 % (32.0-36.0); MCV 96 fL (80-95); MPV 10.2 fL (8.0-11.0); Platelet Count 180 10^3/uL (130-400); RBC 4.13 10^6/uL (3.93-5.22); RDW 11.6 % (11.7-14.6); RDW-SD 41.2 fL; WBC 7.05 10^3/uL (4.4-10.8)
[2023-10-03 12:53] LABS: Vitamin D 25 Total 65.8 ng/mL (30-100)
[2023-10-03 12:58] LABS: Bilirubin Negative (Negative); Blood Negative (Negative); Clarity Clear (Clear); Glucose Negative (Negative); Ketones Negative (Negative); Leukocyte Esterase Trace (Negative); Nitrite Negative (Negative); Specific Gravity 1.015 (1.005-1.025); Urobilinogen 0.2 mg/dL (Up to 0.2); pH 7.5 (5-8)
[2023-10-03 13:08] LABS: ALT 22 U/L (14-59); AST 16 U/L (15-37); Albumin 4.3 g/dL (3.4-5.0); Alkaline Phosphatase 44 U/L (46-116); Anion Gap 5.8 mmol/L (3-11); BUN 11 mg/dL (7-18); Bilirubin, Total 0.4 mg/dL (0.2-1.0); CO2 31.2 mmol/L (21.0-32.0); Calcium 9.2 mg/dL (8.5-10.1); Calculated LDL 159 mg/dL (<100); Chloride 94 mmol/L (98-107); Cholesterol 246 mg/dL (<200); Estimated GFR 62.13 (mL/min/1.73m2); Folate > 20.0 ng/mL (8.6-20.0); Glucose 98 mg/dL (74-106); HDL Cholesterol 51 mg/dL (40-60); Magnesium 1.8 mg/dL (1.8-2.4); Sodium 131 mmol/L (136-145); TSH (W/Ref FT4) 1.29 uIU/mL (0.36-3.74); Total Protein 7.8 g/dL (6.4-8.2); Triglyceride 183 mg/dL (<150); Vitamin B12 1104 pg/mL (193-986)
[2023-10-03 13:20] LABS: Bacteria Few HPF (Negative); WBC 0-2 HPF (0-5)
[2023-10-03 13:21] LABS: C & S Indicated? C&S Done As Ordered; Crystals Negative HPF (Negative); Epithelial Cells Negative HPF (Negative); Mucus Negative (Negative); RBC Negative HPF (0-2)
[2023-10-03 13:26] LABS: Hemoglobin A1C 5.4 % (<5.7)
[2023-10-05 11:06] LABS: Zinc, S 72 mcg/dL (60-106)
[2023-10-10 10:42] LABS: Biotin (Vitamin B7), Serum >3600.0 pg/mL
== END 2023-10-03 04:05 | disposition home or self-care (01) ==
LOC: LOS 04:04
PROVIDERS: Nurse Practitioner Psychiatric/Mental Health; PCP Nurse Practitioner Family; Visit Provider Registered Nurse
DX: F31.81 Bipolar II disorder (principal); F41.8 Other specified anxiety disorders; R82.998 Other abnormal findings in urine; Z79.899 Other long term (current) drug therapy; R79.89 Other specified abnormal findings of blood chemistry
CPT/HCPCS: 36415; 80053; 80061; 82306; 84591; 84630; 85027; 81003; 81015; 82607; 82746; 83036; 83735; 84443; 87086

== ENCOUNTER 2023-10-21 09:38 | Outpatient (CLI) | payer MEDICARE, MEDICAID, SELFPAY ==
--- NOTE | 2023-10-21 09:30 | RT.EKG_ITS ---
APPROVED REPORT Exam: Resting ECG Reason for Exam: C/O palpitations Patient Location: O HR:77 bpm ECG Measurements Heart Rate 77 AXIS IL 152 P 47 QRSd 96 QRS 32 QT 350 T 61 QTc 397 Conclusion Sinus rhythm...normal P axis, V-rate 50- 99 Ventricular premature complex...V complex w/ short R-R interval Otherwise normal ECG
[2023-10-21 13:03] LABS: Bilirubin Negative (Negative); Blood Negative (Negative); Clarity Clear (Clear); Glucose Negative (Negative); Ketones Negative (Negative); Leukocyte Esterase Trace (Negative); Nitrite Negative (Negative); Urobilinogen 0.2 mg/dL (Up to 0.2); pH 5.5 (5-8)
[2023-10-21 13:27] LABS: Bacteria Rare HPF (Negative); C & S Indicated? No/Sq. Contamination; Casts Negative LPF (Negative); Crystals Negative HPF (Negative); Epithelial Cells Moderate HPF (Negative); Mucus Negative (Negative); RBC 0-2 HPF (0-2)
== END 2023-10-21 09:39 | disposition home or self-care (01) ==
LOC: DI.CM 09:39
PROVIDERS: PCP Nurse Practitioner Family; Visit Provider Nurse Practitioner Family
DX: R00.2 Palpitations (principal)
CPT/HCPCS: 93010; 81003; 81015

== ENCOUNTER → 2023-10-26 01:03 | Outpatient (CLI) | payer MEDICARE, MEDICAID, SELFPAY ==
--- NOTE | 2023-10-26 07:30 | DI.MAMMO_ITS ---
Exam(s) MAMMO SCREENING EXAM: MAMMO SCREENING CLINICAL HISTORY: screening,Z12.39. TECHNIQUE: Bilateral full field digital CC and MLO mammographic images were obtained with 3D tomosyn thesis and utilizing computer aided detection (CAD). COMPARISON: Prior mammograms were reviewed. FINDINGS: There are no new right breast findings. In the left breast there is an asymmetric density-possible nodule seen on the MLO view measuring 6 x 5 mm located 6 cm in from the nipple, slightly lateral of center. Additional imaging required. There are no malignant-appearing microcalcification groups in this region or elsewhere in either jd [address]. There is no significant architectural distortion nor skin thickening-retraction. IMPRESSION: 1. No radiographic evidence of malignancy in the right breast. 2. Left breast asymmetric density-possible nodule. Spot compression MLO view and breast ultrasound r ecommended. BI-RADS Category 0 - Assessment Incomplete: Need additional imaging evaluation Breast Density - Category B - Scattered areas of fibroglandular density Breast density Category C or D implies that the patient has dense breast tissue. Dense breast tissue can make it harder to find cancer on a mammogram. Dense breast tissue is also associated with an incr eased risk of breast cancer. This information about the result of the mammogram report was provided to the patient to raise their awareness. Use this report when you speak with the patient about their risks for breast cancer, which includes their family history. At that time, you may recommend additional screening tests (Ultrasoun d or MRI) as these tests may add significant information. A negative radiographic report should not delay biopsy if a dominant or clinically suspicious mass is present. Up to ten percent of cancers are not identified on mammography. A negative report may reinforce clinical impression. Adenosis and dense breasts may obscure an underlying neoplasm. False positive reports average 6 to 10%. Patient will receive a letter notifying them of these results.
== END ==
PROVIDERS: PCP Nurse Practitioner Family; Visit Provider Nurse Practitioner Family
DX: Z12.31 Encounter for screening mammogram for malignant neoplasm of breast (principal)
CPT/HCPCS: 77063; 77067

== ENCOUNTER → 2023-10-28 00:23 | Outpatient (CLI) | payer MEDICARE, MEDICAID, SELFPAY ==
--- NOTE | 2023-10-28 | DI.MAMMO_ITS ---
Exam(s) MG MAMMO SCREEN CALL BACK UNI US BREAST LT LIMITED EXAM: MG MAMMO SCREEN CALL BACK UNI and U/S breast LT limited CLINICAL HISTORY: F/U LT ASYMMETRIC DENSITY,? NODULE,R92.8. TECHNIQUE: Craniocaudal and mediolateral oblique Full Field Digital Mammography views of the left br east with Computer Aided Diagnosis followed by Tomosynthesis and left breast ultrasound. COMPARISON: Comparison is made with prior examinations. FINDINGS: Mammography/Tomosynthesis: Masses/Architectural Distortion: The area identified on the MLO view does not persist on the addition al views. No mass is seen. No area of architectural distortion is present. Microcalcifictions: No suspicious pleomorphic-type are seen. Skin Thickening/Nipple Retraction: None. Limited left breast US: Echotexture: Normal appearance of the glandular tissue. Shadowing: No suspicious foci. Cyst: None. Solid lesions: None seen. Ductal dilation: None. IMPRESSION: 1. No evidence of malignancy is noted. 2. Unless there is more urgent need, follow-up screening mammography is recommended, as per [place] guidelines. 3. The findings were discussed with the patient on the date of the examination. BI-RADS Category 1 - Negative Breast Density - Category B - Scattered areas of fibroglandular density Breast density Category C or D implies that the patient has dense breast tissue. Dense breast tissue can make it harder to find cancer on a mammogram. Dense breast tissue is also associated with an incr eased risk of breast cancer. This information about the result of the mammogram report was provided to the patient to raise their awareness. Use this report when you speak with the patient about their risks for breast cancer, which includes their family history. At that time, you may recommend additional screening tests (Ultrasoun d or MRI) as these tests may add significant information. A negative radiographic report should not delay biopsy if a dominant or clinically suspicious mass is present. Up to ten percent of cancers are not identified on mammography. A negative report may reinforce clinical impression. Adenosis and dense breasts may obscure an underlying neoplasm. False positive reports average 6 to 10%. Patient will receive a letter notifying them of these results.
== END ==
PROVIDERS: PCP Nurse Practitioner Family; Visit Provider Nurse Practitioner Family
DX: R92.8 Other abnormal and inconclusive findings on diagnostic imaging of breast (principal); Z12.31 Encounter for screening mammogram for malignant neoplasm of breast
CPT/HCPCS: 76642; 77063; 77067

== ENCOUNTER 2023-11-01 17:22 | Emergency (ER) | payer MEDICARE, MEDICAID, SELFPAY ==
[2023-11-01 17:27] VITALS: BP 148/55; PULSE 77; RESP 18; TEMP 37; O2SAT 93
[2023-11-01 18:35] VITALS: BP 148/55; PULSE 77; RESP 18; TEMP 37; O2SAT 93
--- NOTE | 2023-11-01 18:54 | W.ED.GENAD ---
Discharge Plan Disposition Patient Disposition: Other Disposition Not Listed Other Facility: out and back to [facility] to outpatient CT Discharge Details Clinical Impression: Abdominal pain Primary Care Provider: Cathie Strange ED Provider: Janey Gresham Home Meds and New Rx's Prescriptions: No Action trazodone 100 mg tablet 200 mg PO QHS bupropion HCl 150 mg tablet extended release 24 hr 150 mg PO QAM pantoprazole 40 mg tablet,delayed release (DR/EC) 40 mg PO DAILY lisinopril 40 mg tablet 40 mg PO DAILY Qty: 90 3RF olanzapine 10 mg tablet 10 mg PO DAILY clonidine HCl 0.1 mg tablet 0.1 mg PO DAILY lamotrigine 200 mg tablet 200 mg PO QHS lamotrigine 100 mg tablet 100 mg PO QAM simvastatin 20 mg tablet 20 mg PO DAILY Qty: 90 3RF diclofenac sodium [Voltaren Arthritis Pain] 1 % gel 2 g topical QID PRN (Reason: joint pain) Qty: 100 1RF Rx Instructions: apply to single elbow, wrist or hand; for hand includes palm/fingers/back of hand rizatriptan [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 Present to the registration desk. You will have an outpatient CT performed. Return directly to [facility] emergency department for us to review the results and provide treatment. HPI General Date/Time Provider Initiated Documentation: 11/01/23 18:32. HPI Narrative: Benita is a 68-year-old female with history of diverticulosis, bipolar, GERD, HTN, and HLD who presents to the emergency department today for evaluation of all over abdominal pain. She reports this started weeks ago, is unable to say exactly when or how many weeks ago. She describes it as an allover aching pain accompanied by nausea and chills. She has also had diarrhea x 5 times daily for at least a month. She denies chest pain, shortness of breath, vomiting, change in bladder function/dysuria, black/tarry stools. She has a h/o diverticulitis, was recently treated with abx on 05/27/23. She had an endoscopy performed at [facility] on the , says that she has been diagnosed with diverticulosis. Related Data Home Medications Medication Instructions Recorded Confirmed multivitamin-ferrous 1 tab PO DAILY 02/10/22 11/01/23 fumarate-folic acid 18 mg-400 mcg tablet trazodone 100 mg tablet 200 mg PO QHS 04/18/23 11/01/23 bupropion HCl 150 mg 24 hr tablet, 150 mg PO QAM 09/30/23 11/01/23 extended release pantoprazole 40 mg tablet,delayed 40 mg PO DAILY 09/30/23 11/01/23 release sertraline 100 mg tablet 100 mg PO DAILY 09/30/23 11/01/23 diclofenac sodium 1 % topical gel 2 g topical QID PRN joint pain 10/04/23 11/01/23 (Voltaren Arthritis Pain) #100 grams simvastatin 20 mg tablet 20 mg PO DAILY #90 tabs 10/04/23 11/01/23 rizatriptan 10 mg disintegrating 10 mg PO ONCE PRN migraine 10/12/23 11/01/23 tablet (Maxalt-Z 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) headache #14 tabs clonidine HCl 0.1 mg tablet 0.1 mg PO DAILY 10/21/23 11/01/23 lamotrigine 100 mg tablet 100 mg PO QAM 10/21/23 11/01/23 lamotrigine 200 mg tablet 200 mg PO QHS 10/21/23 11/01/23 lisinopril 40 mg tablet 40 mg PO DAILY #90 tabs 10/21/23 11/01/23 olanzapine 10 mg tablet 10 mg PO DAILY 10/21/23 11/01/23 Previous Rx's Medication Instructions Recorded diclofenac sodium 1 % topical gel 2 g topical QID PRN joint pain 10/04/23 (Voltaren Arthritis Pain) #100 grams simvastatin 20 mg tablet 20 mg PO DAILY #90 tabs 10/04/23 rizatriptan 10 mg disintegrating 10 mg PO ONCE PRN migraine 10/12/23 tablet (Maxalt-Z 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) headache #14 tabs lisinopril 40 mg tablet 40 mg PO DAILY #90 tabs 10/21/23 Allergies Allergy/AdvReac Type Severity Reaction Status Date / Time latex AdvReac Severe Skin Rash Verified 11/01/23 17:30 amoxicillin [From Augmentin] AdvReac Agitation Unverified 11/01/23 17:30 azithromycin [From Zithromax] AdvReac headache, Verified 11/01/23 17:30 hearing loss,double vision, DAVILA ciprofloxacin [From Cipro] AdvReac Dizziness/L Verified 11/01/23 17:30 ightheade clavulanic acid AdvReac Agitation Unverified 11/01/23 17:30 [From Augmentin] codeine AdvReac GI upset Verified 11/01/23 17:30 doxycycline AdvReac Other (See Unverified 11/01/23 17:30 Comment) metronidazole [From Flagyl] AdvReac Agitation Unverified 11/01/23 17:30 Penicillins AdvReac Other (See Unverified 11/01/23 17:30 Comment) Sulfa (Sulfonamide AdvReac anxious Verified 11/01/23 17:30 Antibiotics) General Stated Complaint: Abd Prob MARIAM: 3 Review of Systems Narrative: see HPI Exam Const General: cooperative, healthy appearing, comfortable, no acute distress and anxious HENMT Mouth: moist mucous membranes (slightly tacky) Resp Effort & Inspection: normal respiratory effort and able to speak in complete sentences Auscultation: clear to auscultation bilaterally Cardio Rate: regular rate Rhythm: regular rhythm GI Inspection: normal to inspection Palpation: soft, not firm, no guarding and tender (diffuse, greatest in LLQ) Course Vital Signs Vital signs: Vital Signs Temperature 37.0 C 11/01/23 17:27 Pulse 77 11/01/23 17:27 Respiratory Rate 18 11/01/23 17:27 Blood Pressure 148/55 H 11/01/23 17:27 Pulse Oximetry 93 11/01/23 17:27 Temperature 37.0 C 11/01/23 18:35 Pulse 77 11/01/23 18:35 Respiratory Rate 18 11/01/23 18:35 Respiratory Effort Normal 11/01/23 18:35 Blood Pressure 148/55 H 11/01/23 18:35 Pulse Oximetry 93 11/01/23 18:35 Lab/Test Results Lab/Test Results: Laboratory Tests Range/Units 11/01/23 19:05 WBC (4.4-10.8) 10^3/uL 6.26 RBC (3.93-5.22) 10^6/uL 3.99 Hgb (11.2-15.7) g/dL 12.9 Hct (36.0-46.0) % 38.9 MCV (80-95) fL 98 H MCH (27.0-33.0) pg 32.3 MCHC (32.0-36.0) % 33.2 RDW (11.7-14.6) % 12.6 Plt Count (130-400) 10^3/uL 169 MPV (8.0-11.0) fL 9.3 Immature Gran % 0.8 Neutrophils % 45.3 Lymphocytes % 38.8 Monocytes % 10.5 Eosinophils % 4.0 Basophils % 0.6 Nucleated RBC % (0.0-0.3) % 0.0 Absolute Neutrophils (1.2-6.7) 10^3/uL 2.83 Absolute Lymphocytes (1.2-3.4) 10^3/uL 2.43 Absolute Monocytes (0.1-0.8) 10^3/uL 0.66 Absolute Eosinophils (0.0-0.7) 10^3/uL 0.25 Absolute Basophils (0.0-0.2) 10^3/uL 0.04 Sodium (136-145) mmol/L 138 Potassium (3.5-5.1) mmol/L 4.4 Chloride (98-107) mmol/L 100 Carbon Dioxide (21.0-32.0) mmol/L 26.6 Anion Gap (3-11) mmol/L 11.4 H BUN (7-18) mg/dL 25 H Creatinine (0.55-1.02) mg/dL 1.2 H Est GFR (CKD-EPI 2020) (mL/min/1.73m2) 49.92 Glucose (74-106) mg/dL 106 Calcium (8.5-10.1) mg/dL 9.7 Total Bilirubin (0.2-1.0) mg/dL 0.3 AST (15-37) U/L 17 ALT (14-59) U/L 27 Alkaline Phosphatase (46-116) U/L 61 Total Protein (6.4-8.2) g/dL 8.0 Albumin (3.4-5.0) g/dL 4.3 Medical Decision Making Benita is a 68-year-old female with history of diverticulosis, bipolar, GERD, HTN, and HLD who presents to the emergency department today for evaluation of all over abdominal pain. She reports this started weeks ago, is unable to say exactly when or how many weeks ago. She describes it as an allover aching pain accompanied by nausea and chills. She has also had diarrhea x 5 times daily for at least a month. She denies chest pain, shortness of breath, vomiting, change in bladder function/dysuria, black/tarry stools. She has a h/o diverticulitis, was recently treated with abx on 05/27/23. She had an endoscopy performed at [facility] on the , says that she has been diagnosed with diverticulosis. Physical exam remarkable for diffuse tenderness to palpation, most significant in the left lower quadrant. Abdomen is soft, nondistended, normoactive bowel sounds. Easy work of breathing, lung sounds clear bilaterally. Normal heart sounds. Slightly tacky mucous membranes. Patient does appear anxious during exam. DDx includes but is not limited to diverticulitis, colitis, IBS, inflammatory disorder, partial bowel obstruction I independently interpreted the following tests: CBC unremarkable. CMP notable for elevated BUN and creatinine (25, 1.2), likely due to pre-renal azotemia due to mild dehydration. As CT is indicated for further evaluation of abdominal pain, patient to go to [facility] for CT scan. We currently do not have CT available at an [facility] due to routine maintenance. Discussed risk versus benefits of transportation via private vehicle with patient, she declines ambulance at this time, so she feels well enough to drive. Advised patient to go directly to [facility] for outpatient CT scan. Order was faxed by diagnostic imaging. Patient to return directly to [facility] after CT is complete. She is agreeable with plan of care 21:15- received call from [facility] that pt has checked into their ED and declines to return to [facility]. Pt eloped. Quality:[facility] Health Related Social Needs: No Data to Display COUNTS INCLUDE 234 BEDS AT THE [facility] All Active Problems (Updated 11/01/23 @ 20:09 by Janey Pan) Abdominal pain (Acute) Essential hypertension (Chronic) Diverticulitis large intestine (Acute) Colon stricture (Acute) Diverticular stricture (Acute) Chronic diarrhea (Chronic) Hyperlipidemia (Chronic) Glaucoma (Chronic) Gastroesophageal reflux disease with esophagitis (Chronic) Bipolar I disorder (Chronic) Allergic rhinitis (Chronic) Migraine (Chronic) Multiple cranial nerve palsy (Chronic) Abnormal sensation in left ear (Acute) Prediabetes (Chronic) Medical History (Updated 11/01/23 @ 20:09 by Janey Pan) TMJ (temporomandibular joint disorder) Diverticulitis of sigmoid colon Diabetes mellitus Cramer's esophagus On 2009 EGD but not on 2012 EGD Surgical History S/P cholecystectomy S/P BSO (bilateral salpingo-oophorectomy) (07/03/15) Status post foot surgery History of total vaginal hysterectomy (TVH) (07/03/15) With cystoscopy and rectocele repair History of esophagogastroduodenoscopy History of bilateral ligation of fallopian tubes Family History Mother Stroke Lung cancer Hypertension Father Heart disease Hyperlipidemia Hypertension Brother Heart disease DOUBLE BYPASS AGE 48 (NON SMOKER) Hyperlipidemia Son Depression Daughter Depression Maternal Grandfather Lung cancer Maternal Grandmother Heart disease Myocardial infarction Paternal Grandfather No problems noted. Paternal Grandmother Diabetes Social History Smoking/Tobacco Use Status: Former Tobacco Use Quit Date: 09/05/77 Smoking risk assessment performed?: Yes Alcohol Intake: never Drug use: Never Substance use type: does not use Housing: house Do you feel safe at home: Yes Do you feel safe in your relationship?: Yes
[2023-11-01 19:09] LABS: Abs Immature Grans 0.05 10^3/uL (0.0-0.06); Absolute Basophil Count 0.04 10^3/uL (0.0-0.2); Absolute Eosinophil Count 0.25 10^3/uL (0.0-0.7); Absolute Lymphocyte Count 2.43 10^3/uL (1.2-3.4); Absolute Monocyte Count 0.66 10^3/uL (0.1-0.8); Absolute Neutrophil Count 2.83 10^3/uL (1.2-6.7); Basophils % 0.6; HCT 38.9 % (36.0-46.0); HGB 12.9 g/dL (11.2-15.7); Immature Grans % 0.8; Lymphocytes % 38.8; MCH 32.3 pg (27.0-33.0); MCHC 33.2 % (32.0-36.0); MCV 98 fL (80-95); MPV 9.3 fL (8.0-11.0); Monocytes % 10.5; Neutrophils % 45.3; Platelet Count 169 10^3/uL (130-400); RBC 3.99 10^6/uL (3.93-5.22); RDW 12.6 % (11.7-14.6); RDW-SD 44.5 fL; WBC 6.26 10^3/uL (4.4-10.8)
[2023-11-01 19:24] LABS: ALT 27 U/L (14-59); AST 17 U/L (15-37); Albumin 4.3 g/dL (3.4-5.0); Alkaline Phosphatase 61 U/L (46-116); Anion Gap 11.4 mmol/L (3-11); BUN 25 mg/dL (7-18); Bilirubin, Total 0.3 mg/dL (0.2-1.0); CO2 26.6 mmol/L (21.0-32.0); CREATININE 1.2 mg/dL (0.55-1.02); Calcium 9.7 mg/dL (8.5-10.1); Chloride 100 mmol/L (98-107); Estimated GFR 49.92 (mL/min/1.73m2); Glucose 106 mg/dL (74-106); Potassium 4.4 mmol/L (3.5-5.1); Sodium 138 mmol/L (136-145)
== END 2023-11-01 21:47 | disposition other institution (70) ==
PROVIDERS: Emergency Provider Nurse Practitioner Family; PCP Nurse Practitioner Family
DX: R10.9 Unspecified abdominal pain (principal); R53.1 Weakness; R11.0 Nausea; I10 Essential (primary) hypertension; E78.5 Hyperlipidemia, unspecified; Z87.891 Personal history of nicotine dependence
CPT/HCPCS: 80053; 99283; 85025

== ENCOUNTER 2023-12-03 17:54 | Emergency (ER) | payer MEDICARE, MEDICAID, SELFPAY ==
[2023-12-03 17:57] VITALS: BP 158/87; PULSE 72; RESP 20; TEMP 36.2; O2SAT 97
--- NOTE | 2023-12-03 18:00 | RT.EKG_ITS ---
APPROVED REPORT Exam: Resting ECG Reason for Exam: palpitations, chest pain. Patient Location: E HR:66 bpm ECG Measurements Heart Rate 66 AXIS AL 171 P 36 QRSd 98 QRS 60 QT 383 T 65 QTc 401 Conclusion Sinus rhythm...normal P axis, V-rate 60- 99 I have reviewed and interpreted ECG and agree with software generated interpretation.
--- NOTE | 2023-12-03 18:00 | DI.RAD_ITS ---
Exam(s) XR PORTABLE CHEST AP EXAM: XR PORTABLE CHEST AP CLINICAL HISTORY: weakness TECHNIQUE: 2D digital imaging was performed of the chest. One image was obtained. An AP view was ob tained. COMPARISON: CR XR CHEST 2V PA LATERAL from 07/13/2022 CR,RF RF BARIUM ENEMA from 12/22/2022 FINDINGS: MEDIASTINUM: Normal. HEART: Normal. PULMONARY VASCULATURE: Normal. LUNGS: Clear. PLEURAL SPACE: No pleural effusion or pneumothorax. BONE:Within normal limits for the patient's age. OTHER FINDINGS:Normal. IMPRESSION: No acute pulmonary findings. DATA REPOSITORY: RADIATION DOSE DELIVERED:
[2023-12-03 18:02] VITALS: BP 158/87; PULSE 72; RESP 20; TEMP 36.2; O2SAT 97
[2023-12-03 18:37] LABS: Abs Immature Grans 0.12 10^3/uL (0.0-0.06); Absolute Basophil Count 0.03 10^3/uL (0.0-0.2); Absolute Eosinophil Count 0.14 10^3/uL (0.0-0.7); Absolute Lymphocyte Count 1.98 10^3/uL (1.2-3.4); Absolute Monocyte Count 0.45 10^3/uL (0.1-0.8); Absolute Neutrophil Count 2.72 10^3/uL (1.2-6.7); Basophils % 0.6; Eosinophils % 2.6; HCT 33.7 % (36.0-46.0); HGB 11.6 g/dL (11.2-15.7); Immature Grans % 2.2; Lymphocytes % 36.4; MCH 33.3 pg (27.0-33.0); MCHC 34.4 % (32.0-36.0); MCV 97 fL (80-95); MPV 9.5 fL (8.0-11.0); Monocytes % 8.3; Neutrophils % 49.9; Platelet Count 149 10^3/uL (130-400); RBC 3.48 10^6/uL (3.93-5.22); RDW 12.5 % (11.7-14.6); RDW-SD 44.2 fL; WBC 5.44 10^3/uL (4.4-10.8)
[2023-12-03 18:44] LABS: Bilirubin Negative (Negative); Blood Negative (Negative); Clarity Clear (Clear); Glucose Negative (Negative); Ketones Negative (Negative); Leukocyte Esterase Negative (Negative); Nitrite Negative (Negative); Urobilinogen 0.2 mg/dL (Up to 0.2)
[2023-12-03 18:51] LABS: ALT 15 U/L (14-59); AST 8 U/L (15-37); Albumin 3.7 g/dL (3.4-5.0); Alkaline Phosphatase 55 U/L (46-116); BUN 9 mg/dL (7-18); Bilirubin, Total 0.2 mg/dL (0.2-1.0); CREATININE 0.9 mg/dL (0.55-1.02); Calcium 8.4 mg/dL (8.5-10.1); Chloride 95 mmol/L (98-107); Estimated GFR 70.51 (mL/min/1.73m2); Glucose 112 mg/dL (74-106); Potassium 3.9 mmol/L (3.5-5.1); Sodium 132 mmol/L (136-145); Total Protein 7.1 g/dL (6.4-8.2)
[2023-12-03 19:02] LABS: NT-proBNP 84 pg/mL (<300); TSH 2.88 uIU/Ml (0.36-3.74); Troponin I < 50 ng/L (< or =60)
[2023-12-03] MEDS: Normal Saline 1,000 ML 1000 ML IV (19:08)
[2023-12-03 19:14] LABS: COVID-19 PCR Negative (Negative); Influenza A PCR Negative (Negative); Influenza B PCR Negative (Negative); RSV PCR Negative (Negative)
--- NOTE | 2023-12-03 19:23 | DI.VRAD_ITS ---
PROCEDURE INFORMATION: Exam: XR Chest Exam date and time: 12/03/2023 6:39 PM Age: 68 years old Clinical indication: Other: Weakness TECHNIQUE: Imaging protocol: Radiologic exam of the chest. Views: 1 view. COMPARISON: CT CHEST PE ABD PELVIS W 10/21/2022 9:31 PM FINDINGS: Lungs: Unremarkable. No consolidation. Pleural spaces: Unremarkable. No pleural effusion. No pneumothorax. Heart/Mediastinum: Unremarkable. No cardiomegaly. Bones/joints: Partially visualized thoracolumbar scoliosis. Mild degenerative changes of the spine and shoulders. No acute fracture. IMPRESSION: No acute disease Dictated and Authenticated by: Tyrel Hilton MD. Ordering:PhamELIZABETH Cruz MD
[2023-12-03 19:27] LABS: Source Nasopharynx
[2023-12-03] MEDS: ALPRAZolam 0.5 MG TAB 1 MG PO (19:51)
[2023-12-03 20:17] LABS: Lactate 0.5 mmol/L (0.6-1.4)
[2023-12-03 20:34] VITALS: BP 148/71; PULSE 66; RESP 22; TEMP 36.8; O2SAT 92
--- NOTE | 2023-12-03 22:00 | W.ED.GENAD ---
Discharge Plan Disposition Patient Disposition: Home Condition: Stable Discharge Details Clinical Impression: Body aches Primary Care Provider: Cathie Strange ED Provider: Ab Haynes Home Meds and New Rx's Prescriptions: No Action trazodone 100 mg tablet 200 mg PO QHS bupropion HCl 150 mg tablet extended release 24 hr 150 mg PO QAM pantoprazole 40 mg tablet,delayed release (DR/EC) 40 mg PO DAILY lisinopril 40 mg tablet 40 mg PO DAILY Qty: 90 3RF olanzapine 10 mg tablet 10 mg PO DAILY clonidine HCl 0.1 mg tablet 0.1 mg PO DAILY lamotrigine 200 mg tablet 200 mg PO QHS lamotrigine 100 mg tablet 100 mg PO QAM simvastatin 20 mg tablet 20 mg PO DAILY Qty: 90 3RF diclofenac sodium [Voltaren Arthritis Pain] 1 % gel 2 g topical QID PRN (Reason: joint pain) Qty: 100 1RF Rx Instructions: apply to single elbow, wrist or hand; for hand includes palm/fingers/back of hand rizatriptan [Maxalt-NEWSSTAND VENDOR] 10 mg tablet,disintegrating 10 mg PO ONCE PRN (Reason: migraine headache) Qty: 14 2RF Rx Instructions: may repeat once after at least 2 hours [id number]-[id number]-[id number] acid 18-400 mg-mcg Tablet 1 tab PO DAILY sertraline 100 mg tablet 100 mg PO DAILY Discharge Instructions Additional Instructions: lab work today looks great please follow up with your PCP for further management of ongoing symptoms Discharge Data Discharge Date/Time-TO BE ENTERED AT DEPARTURE: 12/03/23 20:39 HPI General Date/Time Provider Initiated Documentation: 12/03/23 17:58. Limitations to Documentation: no limitations. Information obtained by: patient. HPI Narrative: Left 68-year-old female with past medical history of Cramer's esophagus, diverticulitis presents for evaluation of influenza. She reports that she had the flu for 2 weeks. She was never tested for the flu but says that she thinks that she has it because she has bodyaches, nausea, fatigue. She states that she has been having occasional palpitations but no chest pain or shortness of breath. She has not been evaluated for the symptoms. She reports recent bout of diverticulitis. Not currently on antibiotics. Denies any fever. Related Data Home Medications Medication Instructions Recorded Confirmed multivitamin-ferrous 1 tab PO DAILY 06/08/22 02/28/24 fumarate-folic acid 18 mg-400 mcg tablet trazodone 100 mg tablet 200 mg PO QHS 04/18/23 11/02/23 bupropion HCl 150 mg 24 hr tablet, 150 mg PO QAM 09/30/23 11/02/23 extended release pantoprazole 40 mg tablet,delayed 40 mg PO DAILY 09/30/23 11/02/23 release sertraline 100 mg tablet 100 mg PO DAILY 09/30/23 11/02/23 diclofenac sodium 1 % topical gel 2 g topical QID PRN joint pain 10/04/23 11/02/23 (Voltaren Arthritis Pain) #100 grams simvastatin 20 mg tablet 20 mg PO DAILY #90 tabs 10/04/23 11/02/23 clonidine HCl 0.1 mg tablet 0.1 mg PO DAILY 10/21/23 11/02/23 lamotrigine 100 mg tablet 100 mg PO QAM 10/21/23 11/02/23 lamotrigine 200 mg tablet 200 mg PO QHS 10/21/23 11/02/23 lisinopril 40 mg tablet 40 mg PO DAILY #90 tabs 10/21/23 11/02/23 olanzapine 10 mg tablet 10 mg PO DAILY 10/21/23 11/02/23 rizatriptan 10 mg disintegrating 10 mg PO ONCE PRN migraine 11/09/23 tablet (Maxalt-NEWSSTAND VENDOR) headache #14 tabs Previous Rx's Medication Instructions Recorded diclofenac sodium 1 % topical gel 2 g topical QID PRN joint pain 10/04/23 (Voltaren Arthritis Pain) #100 grams simvastatin 20 mg tablet 20 mg PO DAILY #90 tabs 10/04/23 lisinopril 40 mg tablet 40 mg PO DAILY #90 tabs 10/21/23 rizatriptan 10 mg disintegrating 10 mg PO ONCE PRN migraine 11/09/23 tablet (Maxalt-NEWSSTAND VENDOR) headache #14 tabs Allergies Allergy/AdvReac Type Severity Reaction Status Date / Time latex AdvReac Severe Skin Rash Verified 11/01/23 17:30 amoxicillin [From Augmentin] AdvReac Agitation Unverified 11/01/23 17:30 azithromycin [From Zithromax] AdvReac headache, Verified 02/27/24 17:30 hearing loss,double vision, DAVILA ciprofloxacin [From Cipro] AdvReac Dizziness/L Verified 11/01/23 17:30 ightheade clavulanic acid AdvReac Agitation Unverified 11/01/23 17:30 [From Augmentin] codeine AdvReac GI upset Verified 11/01/23 17:30 doxycycline AdvReac Other (See Unverified 11/01/23 17:30 Comment) metronidazole [From Flagyl] AdvReac Agitation Unverified 11/01/23 17:30 Penicillins AdvReac Other (See Unverified 11/01/23 17:30 Comment) Sulfa (Sulfonamide AdvReac anxious Verified 11/01/23 17:30 Antibiotics) General Stated Complaint: RespSymp MARIAM: 3 Exam Narrative Exam Narrative: Review of Systems: All systems reviewed & are unremarkable except as noted in HPI and below Well-developed, no acute distress NCAT PERRL, normal conjunctiva RRR, no murmur Unlabored respiratory effort, clear bilaterally Nondistended abdomen, soft nontender Extremities w/o deformity, no cyanosis, no edema No rashes or lesions. no focal neurologic deficits Appropriate mood and affect Course Vital Signs Vital signs: Vital Signs Temperature 36.2 C L 12/03/23 17:57 Pulse 72 12/03/23 17:57 Respiratory Rate 20 12/03/23 17:57 Blood Pressure 158/87 H 12/03/23 17:57 Pulse Oximetry 97 12/03/23 17:57 Temperature 36.8 C 12/03/23 20:34 Temperature Source Oral 12/03/23 18:02 Pulse 66 12/03/23 20:34 Respiratory Rate 22 12/03/23 20:34 Respiratory Effort Normal 12/03/23 18:02 Respiratory Depth Normal 12/03/23 18:02 Blood Pressure 148/71 H 12/03/23 20:34 Pulse Oximetry 92 12/03/23 20:34 Oxygen Delivery Method Room Air 12/03/23 18:02 Oxygen Flow Rate 0 12/03/23 17:57 Pain Level 5 12/03/23 18:02 Lab/Test Results Lab/Test Results: 12/03/23 19:00 Blood Blood Culture - Pending 12/03/23 18:20 Blood Blood Culture - Pending Laboratory Tests Range/Units 12/03/23 12/03/23 12/03/23 18:20 18:25 18:32 WBC (4.4-10.8) 10^3/uL 5.44 RBC (3.93-5.22) 10^6/uL 3.48 L Hgb (11.2-15.7) g/dL 11.6 Hct (36.0-46.0) % 33.7 L MCV (80-95) fL 97 H MCH (27.0-33.0) pg 33.3 H MCHC (32.0-36.0) % 34.4 RDW (11.7-14.6) % 12.5 Plt Count (130-400) 10^3/uL 149 MPV (8.0-11.0) fL 9.5 Immature Gran % 2.2 Neutrophils % 49.9 Lymphocytes % 36.4 Monocytes % 8.3 Eosinophils % 2.6 Basophils % 0.6 Nucleated RBC % (0.0-0.3) % 0.0 Absolute Neutrophils (1.2-6.7) 10^3/uL 2.72 Absolute Lymphocytes (1.2-3.4) 10^3/uL 1.98 Absolute Monocytes (0.1-0.8) 10^3/uL 0.45 Absolute Eosinophils (0.0-0.7) 10^3/uL 0.14 Absolute Basophils (0.0-0.2) 10^3/uL 0.03 VBG Lactate (0.6-1.4) mmol/L 2.0 H Sodium (136-145) mmol/L 132 L Potassium (3.5-5.1) mmol/L 3.9 Chloride (98-107) mmol/L 95 L Carbon Dioxide (21.0-32.0) mmol/L 28.0 Anion Gap (3-11) mmol/L 9.0 BUN (7-18) mg/dL 9 Creatinine (0.55-1.02) mg/dL 0.9 Est GFR (CKD-EPI 2020) (mL/min/1.73m2) 70.51 Glucose (74-106) mg/dL 112 H Calcium (8.5-10.1) mg/dL 8.4 L Total Bilirubin (0.2-1.0) mg/dL 0.2 AST (15-37) U/L 8 L ALT (14-59) U/L 15 Alkaline Phosphatase (46-116) U/L 55 Troponin I (< or =60) ng/L < 50 NT-Pro-B Natriuret Pep (<300) pg/mL 84 Total Protein (6.4-8.2) g/dL 7.1 Albumin (3.4-5.0) g/dL 3.7 TSH (0.36-3.74) uIU/Ml 2.88 Urine Color (Yellow) Yellow Urine Clarity (Clear) Clear Urine pH (5-8) 7.0 Ur Specific [place] (1.005-1.025) 1.010 Urine Protein (Neg-Trace) mg/dL Negative Urine Ketones (Negative) mg/dL Negative Urine Blood (Negative) Negative Urine Nitrite (Negative) Negative Urine Bilirubin (Negative) Negative Urine Urobilinogen (Up to 0.2) mg/dL 0.2 Ur Leukocyte Esterase (Negative) Negative Urine Glucose (Negative) mg/dL Negative COVID-19 Source Nasopharynx SARS-CoV-2 (PCR) (Negative) Negative Influenza Type A (PCR) (Negative) Negative Influenza Type B (PCR) (Negative) Negative RSV (PCR) (Negative) Negative Range/Units 12/03/23 12/03/23 20:15 21:07 WBC (4.4-10.8) 10^3/uL RBC (3.93-5.22) 10^6/uL Hgb (11.2-15.7) g/dL Hct (36.0-46.0) % MCV (80-95) fL MCH (27.0-33.0) pg MCHC (32.0-36.0) % RDW (11.7-14.6) % Plt Count (130-400) 10^3/uL MPV (8.0-11.0) fL Immature Gran % Neutrophils % Lymphocytes % Monocytes % Eosinophils % Basophils % Nucleated RBC % (0.0-0.3) % Absolute Neutrophils (1.2-6.7) 10^3/uL Absolute Lymphocytes (1.2-3.4) 10^3/uL Absolute Monocytes (0.1-0.8) 10^3/uL Absolute Eosinophils (0.0-0.7) 10^3/uL Absolute Basophils (0.0-0.2) 10^3/uL VBG Lactate (0.6-1.4) mmol/L 0.5 L Sodium (136-145) mmol/L Potassium (3.5-5.1) mmol/L Chloride (98-107) mmol/L Carbon Dioxide (21.0-32.0) mmol/L Anion Gap (3-11) mmol/L BUN (7-18) mg/dL Creatinine (0.55-1.02) mg/dL Est GFR (CKD-EPI 2020) (mL/min/1.73m2) Glucose (74-106) mg/dL Calcium (8.5-10.1) mg/dL Total Bilirubin (0.2-1.0) mg/dL AST (15-37) U/L ALT (14-59) U/L Alkaline Phosphatase (46-116) U/L Troponin I (< or =60) ng/L Cancelled NT-Pro-B Natriuret Pep (<300) pg/mL Total Protein (6.4-8.2) g/dL Albumin (3.4-5.0) g/dL TSH (0.36-3.74) uIU/Ml Urine Color (Yellow) Urine Clarity (Clear) Urine pH (5-8) Ur Specific [place] (1.005-1.025) Urine Protein (Neg-Trace) mg/dL Urine Ketones (Negative) mg/dL Urine Blood (Negative) Urine Nitrite (Negative) Urine Bilirubin (Negative) Urine Urobilinogen (Up to 0.2) mg/dL Ur Leukocyte Esterase (Negative) Urine Glucose (Negative) mg/dL COVID-19 Source SARS-CoV-2 (PCR) (Negative) Influenza Type A (PCR) (Negative) Influenza Type B (PCR) (Negative) RSV (PCR) (Negative) Medical Decision Making Emergent evaluation of generalized weakness and bodyaches. The patient reports some concern for influenza however her exam is benign and reassuring. Her vital signs are stable. I am not finding any obvious sources of infection. Patient was evaluated with blood work. No leukocytosis, no significant anemia or thrombocytopenia. Her electrolytes are within normal limits. Her cardiac biomarkers are unremarkable. Her urinalysis is not infected. Her viral testing is negative. Chest x-ray ordered and reviewed, no signs of pulmonary edema or pneumonia. At this time I am not identifying a source of infection or other emergent condition. Patient is feeling better after IV fluids. At this time I feel she is stable for discharge. Advised to follow-up closely with her PCP. Medical Records Medical records reviewed: Yes I reviewed the patient's medical records. Lab Data Lab results reviewed: Yes I reviewed the patient's lab results. Quality:[facility] Health Related Social Needs: No Data to Display PFSH All Active Problems Body aches (Acute) Cramer's esophagus (Chronic) On 2009 EGD, not on 2012 EGD, on 2023 EGD Essential hypertension (Chronic) Diverticulitis large intestine (Acute) Colon stricture (Acute) Diverticular stricture (Acute) Chronic diarrhea (Chronic) Hyperlipidemia (Chronic) Glaucoma (Chronic) Gastroesophageal reflux disease with esophagitis (Chronic) Bipolar I disorder (Chronic) Allergic rhinitis (Chronic) Migraine (Chronic) Multiple cranial nerve palsy (Chronic) Abnormal sensation in left ear (Acute) Prediabetes (Chronic) Hiatal hernia (Chronic) Medical History TMJ (temporomandibular joint disorder) Diverticulitis of sigmoid colon Diabetes mellitus Surgical History S/P cholecystectomy S/P BSO (bilateral salpingo-oophorectomy) (07/03/15) Status post foot surgery History of total vaginal hysterectomy (TVH) (07/03/15) With cystoscopy and rectocele repair History of esophagogastroduodenoscopy History of bilateral ligation of fallopian tubes Family History Mother Stroke Lung cancer Hypertension Father Heart disease Hyperlipidemia Hypertension Brother Heart disease DOUBLE BYPASS AGE 48 (NON SMOKER) Hyperlipidemia Son Depression Daughter Depression Maternal Grandfather Lung cancer Maternal Grandmother Heart disease Myocardial infarction Paternal Grandfather No problems noted. Paternal Grandmother Diabetes Social History Smoking/Tobacco Use Status: Former Tobacco Use Quit Date: 09/05/77 Smoking risk assessment performed?: Yes Alcohol Intake: never Drug use: Never Substance use type: does not use Housing: house Do you feel safe at home: Yes Do you feel safe in your relationship?: Yes
== END 2023-12-03 20:39 | disposition home or self-care (01) ==
PROVIDERS: Emergency Provider Emergency Medicine; PCP Nurse Practitioner Family
DX: R51.9 Headache, unspecified (principal); R11.0 Nausea; I10 Essential (primary) hypertension; Z87.19 Personal history of other diseases of the digestive system; R53.83 Other fatigue; R00.2 Palpitations
CPT/HCPCS: 80053; 87040; 87637; 93005; 96360; 99284; 71045; 81003; 83605; 83880; 84443; 84484; 85025; 93010; 99283

== ENCOUNTER 2024-02-07 23:43 | Emergency (ER) | payer OTHER, MEDICAID, SELFPAY ==
[2024-02-07 23:49] VITALS: BP 171/86; PULSE 60; RESP 16; TEMP 36.7; O2SAT 99
--- NOTE | 2024-02-08 00:01 | ED.GENADUL_ITS ---
Discharge Plan Disposition Patient Disposition: Home Condition: Good Discharge Details Chief Complaint: Allergic Clinical Impression: Contact dermatitis Primary Care Provider: Cathie Strange ED Provider: George Bergman Home Meds and New Rx's Prescriptions: No Action trazodone 100 mg tablet 200 mg PO QHS bupropion HCl 150 mg tablet extended release 24 hr 150 mg PO QAM lisinopril 40 mg tablet 40 mg PO DAILY Qty: 90 3RF olanzapine 10 mg tablet 10 mg PO DAILY clonidine HCl 0.1 mg tablet 0.1 mg PO DAILY lamotrigine 200 mg tablet 200 mg PO QHS lamotrigine 100 mg tablet 100 mg PO QAM simvastatin 20 mg tablet 20 mg PO DAILY Qty: 90 3RF diclofenac sodium [Voltaren Arthritis Pain] 1 % gel 2 g topical QID PRN (Reason: joint pain) Qty: 100 1RF Rx Instructions: apply to single elbow, wrist or hand; for hand includes palm/fingers/back of hand esomeprazole magnesium [Nexium] 40 mg capsule,delayed release(DR/EC) 40 mg PO DAILY rizatriptan [Maxalt-FOOT TENDER] 10 mg tablet,disintegrating 10 mg PO ONCE PRN (Reason: migraine headache) Qty: 14 2RF Rx Instructions: may repeat once after at least 2 hours clotrimazole 1 % cream 1 applic topical BID Qty: 45 0RF Rx Instructions: Apply to affected and surrounding area(s) twice daily until clinical resolution, typically 1 to 4 weeks cyclobenzaprine 10 mg tablet 10 mg PO HS PRN (Reason: muscle spasm) Qty: 30 0RF jsgdadsgwvxj-denn-jfqtd acid 18-400 mg-mcg Tablet 1 tab PO DAILY sertraline 100 mg tablet 100 mg PO DAILY Discharge Instructions Instructions: Dermatitis (ED) Additional Instructions: At this time you have evidence of mild contact dermatitis. This is likely been brought about by the continued exposure to alcohol and dry skin. Please stop rubbing down your hands and forearms with alcohol for the next 1 to 2 weeks. Please use a moisturizer daily. Please apply the hydrocortisone 2.5% ointment to the affected areas on your hands 1-2 times per day for the next week. If you notice any worsening of your symptoms, or any new symptoms such as vomiting, diarrhea, fever, chills, shortness of breath, chest pain, numbness, weakness, or fainting , please return immediately to the emergency department for reevaluation. Please follow up with your primary care provider as soon as possible for reassessment and reevaluation. As always, it was a pleasure participating in your medical care today. Referrals: Cathie Strange NP [Primary Care Provider] - [facility] General Date/Time Provider Initiated Documentation: 02/07/24 23:53 . HPI Narrative: This is a 69-year-old female with a past medical history of multiple allergies, hypertension, high cholesterol, bipolar, GERD, glaucoma, who presents today for evaluation of rash on her hands. Patient states that for the last week she has had a rash that has been present on her wrist bilaterally. She did start an elderberry supplement about a week ago but is uncertain if this caused it. Additionally she has been dealing with a broken shower for the last 2 weeks, and has been wiping herself down with alcohol and hydrogen peroxide every day. She denies any new medications, new soaps, new detergents otherwise. She denies any fever or chills. No burning with urination, no mouth lesions. No difficulty breathing. No other complaints at this time. Rash is notably itchy. It does not spread anywhere else. Related Data Home Medications Medication Instructions Recorded Confirmed multivitamin-ferrous 1 tab PO DAILY 02/10/22 02/07/24 fumarate-folic acid 18 mg-400 mcg tablet trazodone 100 mg tablet 200 mg PO QHS 04/18/23 02/07/24 bupropion HCl 150 mg 24 hr tablet, 150 mg PO QAM 09/30/23 02/07/24 extended release sertraline 100 mg tablet 100 mg PO DAILY 09/30/23 02/07/24 diclofenac sodium 1 % topical gel 2 g topical QID PRN joint pain 10/04/23 02/07/24 (Voltaren Arthritis Pain) #100 grams simvastatin 20 mg tablet 20 mg PO DAILY #90 tabs 10/04/23 02/07/24 clonidine HCl 0.1 mg tablet 0.1 mg PO DAILY 10/21/23 02/07/24 lamotrigine 100 mg tablet 100 mg PO QAM 10/21/23 02/07/24 lamotrigine 200 mg tablet 200 mg PO QHS 02/16/24 06/04/24 lisinopril 40 mg tablet 40 mg PO DAILY #90 tabs 10/21/23 02/07/24 olanzapine 10 mg tablet 10 mg PO DAILY 10/21/23 02/07/24 esomeprazole magnesium 40 mg 40 mg PO DAILY 12/30/23 02/07/24 capsule,delayed release (Nexium) rizatriptan 10 mg disintegrating 10 mg PO ONCE PRN migraine 01/02/24 02/07/24 tablet (Maxalt-FOOT TENDER) headache #14 tabs clotrimazole 1 % topical cream 1 applic topical BID #45 grams 01/09/24 02/07/24 cyclobenzaprine 10 mg tablet 10 mg PO HS PRN muscle spasm #30 01/09/24 02/07/24 tabs Previous Rx's Medication Instructions Recorded diclofenac sodium 1 % topical gel 2 g topical QID PRN joint pain 10/04/23 (Voltaren Arthritis Pain) #100 grams simvastatin 20 mg tablet 20 mg PO DAILY #90 tabs 10/04/23 lisinopril 40 mg tablet 40 mg PO DAILY #90 tabs 10/21/23 rizatriptan 10 mg disintegrating 10 mg PO ONCE PRN migraine 01/02/24 tablet (Maxalt-FOOT TENDER) headache #14 tabs clotrimazole 1 % topical cream 1 applic topical BID #45 grams 01/09/24 cyclobenzaprine 10 mg tablet 10 mg PO HS PRN muscle spasm #30 01/09/24 tabs Allergies Allergy/AdvReac Type Severity Reaction Status Date / Time latex AdvReac Severe Skin Rash Verified 02/07/24 23:54 amoxicillin [From Augmentin] AdvReac Agitation Unverified 02/07/24 23:54 azithromycin [From Zithromax] AdvReac headache, Verified 02/07/24 23:54 hearing loss,double vision, DAVILA ciprofloxacin [From Cipro] AdvReac Dizziness/L Verified 02/07/24 23:54 ightheade clavulanic acid AdvReac Agitation Unverified 02/07/24 23:54 [From Augmentin] codeine AdvReac GI upset Verified 02/07/24 23:54 doxycycline AdvReac Other (See Unverified 02/07/24 23:54 Comment) metronidazole [From Flagyl] AdvReac Agitation Unverified 02/07/24 23:54 Penicillins AdvReac Other (See Unverified 02/07/24 23:54 Comment) Sulfa (Sulfonamide AdvReac anxious Verified 02/07/24 23:54 Antibiotics) General Stated Complaint: Allergic MARIAM: 4 Review of Systems All systems reviewed & are unremarkable except as noted in HPI and below Exam Narrative Exam Narrative: 1.Const: Well-nourished, Well-developed, appearing stated age 2.Eyes: PERRL, no conjunctival injection, and symmetrical lids. 3.ENT: Atraumatic external nose and ears. Moist MM. Neck: Symmetric, trachea midline, No thyromegaly. 4.CVS: +S1/S2, No murmurs or gallops. Peripheral pulses 2+ and equal in all extremities. Brisk capillary refill in all extremities. 5.RESP: Unlabored respiratory effort. Clear to auscultation bilaterally. No wheezes rales or rhonchi 6.GI: Soft, Nontender/Nondistended, No hepatosplenomegaly. No guarding or rebound. 7.MSK: Normocephalic/Atraumatic, Extremities w/o deformity or ttp No cyanosis or clubbing, Normal movement of all extremities 8.Skin: Patient's wrist demonstrate mild skin irritation mild dermatitis which is dry, slightly scaly, with evidence of excoriations. It is present on both the lateral aspects of the wrists and a small amount of the forearm and the dorsum of the hand. Negative Nikolsky sign. No large vesicles or bulla. No palpable purpura. No oral lesions. No mucosal lesions. No evidence of severe cellulitis. No evidence of vaccine preventable rash. No rash on the palms of the hand. 9.Neuro: offensive coordinator II-XII grossly intact. Sensation grossly intact, no focal ne urologic deficits. 10.Psych: (AAO) x3. Appropriate mood and affect Course Vital Signs Vital signs: Vital Signs Temperature 36.7 C 02/07/24 23:49 Pulse 60 02/07/24 23:49 Respiratory Rate 16 02/07/24 23:49 Blood Pressure 171/86 H 02/07/24 23:49 Pulse Oximetry 99 02/07/24 23:49 Temperature 36.7 C 02/07/24 23:49 Temperature Source Skin 02/07/24 23:49 Pulse 60 02/07/24 23:49 Respiratory Rate 16 06/04/24 23:49 Respiratory Effort Normal 02/08/24 00:00 Respiratory Pattern Normal 02/08/24 00:00 Blood Pressure 171/86 H 02/07/24 23:49 Blood Pressure Position Sitting 02/07/24 23:49 Pulse Oximetry 99 02/07/24 23:49 Oxygen Delivery Method Room Air 02/07/24 23:49 Oxygen Flow Rate 0 02/07/24 23:49 Pain Level 0 02/07/24 23:49 Medical Decision Making This is a 69-year-old female with a past medical history of multiple allergies, hypertension, high cholesterol, bipolar, GERD, glaucoma, who presents today for evaluation of rash on her hands. Patient states that for the last week she has had a rash that has been present on her wrist bilaterally. She did start an elderberry supplement about a week ago but is uncertain if this caused it. Additionally she has been dealing with a broken shower for the last 2 weeks, and has been wiping herself down with alcohol and hydrogen peroxide every day. She denies any new medications, new soaps, new detergents otherwise. She denies any fever or chills. No burning with urination, no mouth lesions. No difficulty breathing. No other complaints at this time. Rash is notably itchy. It does not spread anywhere else. Exam demonstrates evidence of mild dermatitis on the lateral aspect of the wrist and dorsum of the hands. No other concerning abnormalities. No evidence of anaphylaxis whatsoever. No current clinical evidence of staph scalded skin syndrome, erythema multiforme, erythema migrans, toxic epidermal necrolysis, Garcia-Juice syndrome, Kawasaki-like rash, meningococcemia, pemphigus vulgaris, or necrotizing fasciitis.Symptoms appear consistent with mild contact dermatitis likely secondary to bathing herself and alcohol and hydrogen peroxide for the past 2 weeks. Recommend regular moisturizer, we will prescribe a 2.5% hydrocortisone cream for topical administration. No other concerning abnormalities at this time. Patient was concerned for scabies, there is no rash in the intertriginous areas. Symptoms notably clinically inconsistent with scabies. Will give hydrocortisone cream here. I have extensively reviewed the treatment plan and discharge instructions with the patient. I have addressed all patient concerns at this time. The patient was made aware of what symptoms to monitor for that would warrant a return to the emergency department. Discussed the plan with the patient, they demonstrate verbal understanding and agreement with our assessment and plan at this time. The documentation in this chart was dictated using ChangeTip dictation software. Please excuse any dictation errors. Quality:[facility] Health Related Social Needs: No Data to Display [facility] All Active Problems (Updated 02/08/24 @ 00:09 by PAM LOMAS) Cramer's esophagus (Chronic) On 2009 EGD, not on 2012 EGD, on 2023 EGD Essential hypertension (Chronic) Colon stricture (Acute) Diverticular stricture (Acute) Chronic diarrhea (Chronic) Hyperlipidemia (Chronic) Glaucoma (Chronic) Gastroesophageal reflux disease with esophagitis (Chronic) Bipolar I disorder (Chronic) Allergic rhinitis (Chronic) Migraine (Chronic) Multiple cranial nerve palsy (Chronic) Abnormal sensation in left ear (Acute) Prediabetes (Chronic) Hiatal hernia (Chronic) Diverticulosis of colon (Acute) Medical History TMJ (temporomandibular joint disorder) Diverticulitis of sigmoid colon Multiple episodes, seeing [facility] Diabetes mellitus Surgical History S/P cholecystectomy S/P BSO (bilateral salpingo-oophorectomy) (07/03/15) Status post foot surgery History of total vaginal hysterectomy (TVH) (07/03/15) With cystoscopy and rectocele repair History of esophagogastroduodenoscopy History of bilateral ligation of fallopian tubes Family History Mother Stroke Lung cancer Hypertension Father Heart disease Hyperlipidemia Hypertension Brother Heart disease DOUBLE BYPASS AGE 48 (NON SMOKER) Hyperlipidemia Son Depression Daughter Depression Maternal Grandfather Lung cancer Maternal Grandmother Heart disease Myocardial infarction Paternal Grandfather No problems noted. Paternal Grandmother Diabetes Social History Smoking/Tobacco Use Status: Former Tobacco Use Quit Date: 09/05/77 Smoking risk assessment performed?: Yes Alcohol Intake: never Drug use: Never Substance use type: does not use Housing: house Do you feel safe at home: Yes Do you feel safe in your relationship?: Yes
== END 2024-02-08 00:13 | disposition home or self-care (01) ==
LOC: ER 02-08 00:16
PROVIDERS: Emergency Provider Student in an Organized Health Care Education/Training Program; PCP Nurse Practitioner Family
DX: L25.8 Unspecified contact dermatitis due to other agents (principal)
CPT/HCPCS: 99282; 99283

== ENCOUNTER 2024-03-09 23:30 | Emergency (ER) | payer OTHER, MEDICAID, SELFPAY ==
[2024-03-09 23:36] VITALS: BP 208/117; PULSE 68; RESP 18; TEMP 36.8
[2024-03-09 23:54] VITALS: PULSE 65; RESP 20
[2024-03-09 23:56] VITALS: BP 218/86; PULSE 62; PULSE 66; RESP 19
[2024-03-09 23:58] VITALS: BP 223/77; PULSE 61; PULSE 65; RESP 15
[2024-03-10] VITALS (67 sets, daily range): BP systolic 128–234; BP diastolic 47–97; PULSE 53–73; RESP 12–27; O2SAT 95
--- NOTE | 2024-03-10 | DI.CT_ITS ---
Exam(s) CT HEAD WO EXAM: CT HEAD WO CLINICAL HISTORY: headache, hypertension, nonfocal neuro exam. TECHNIQUE: Imaging Protocol: Axial computed tomography images with coronal and sagittal reformatted images were created and reviewed COMPARISON: CT CT HEAD WO from 03/16/2023 FINDINGS: There are no skull fractures. There is no fluid in the visualized paranasal sinuses. There is no evidence of intracranial hemorrhage, mass effect, or shift of midline structures. There are no extra-axial fluid collections. The ventricles are not enlarged or shifted and there is no blo od within the ventricular system nor within the basal cisterns. Mild bilateral periventricular hypodensity consistent with chronic small vessel disease. IMPRESSION: No acute intracranial findings on this noninfused CT scan of the brain. Mild white matter findings consistent with chronic small vessel ischemic changes. RADIATION DOSE DELIVERED: 649.94mGy.cm Total DLP DATA REPOSITORY: All CT scans at this facility are submitted to the National Radiology Data Registry (NRDR) Dose Index Registry (DIR) with the [employer] (ACR). RADIATION OPTIMIZATION: All CT scans at this facility use at least one of these dose optimization te chniques: automated exposure control; mA and/or kV adjustment per patient size (includes targeted exa ms where dose is matched to clinical indication); or iterative reconstruction.
--- NOTE | 2024-03-10 | DI.CT_ITS ---
Exam(s) CT ABDOMEN PELVIS W EXAM: CT ABDOMEN PELVIS W CLINICAL HISTORY: periumbiclial abd pain, TTP, nausea. TECHNIQUE: Imaging Protocol: Axial computed tomography images with coronal and sagittal reformatted images were created and reviewed CONTRAST MATERIAL: Intravenous: Omnipaque-350 100cc Oral: None COMPARISON: CT CT ABDOMEN PELVIS W from 05/26/2023 FINDINGS: VISUALIZED LUNG BASES: Unchanged scarring in the right lung base. No acute lung base findings.. ABDOMEN: There is no ascites. LIVER: There are no focal hepatic lesions evident. No dilated intrahepatic ducts. GALLBLADDER/BILIARY: Gallbladder is again noted to be surgically absent. CBD is not dilated. PANCREAS: No evidence of pancreatic mass nor dilatation of the pancreatic duct. SPLEEN: Normal size. Unchanged small cyst or hemangioma in the superior aspect of the spleen. Splen ic and portal veins are patent. ADRENALS: There are no significant adrenal masses. KIDNEYS:No cysts evident. Stable appearance of the fatty lesion-probable benign angiomyolipoma in the lateral aspect of the left kidney again noted. No new significant focal renal findings, calculi, no r hydronephrosis. Columnization of the right ureter is again noted, with a tiny calcifications in th e pelvis surrounding the distal ureter-probable phleboliths. There are no radiopaque calculi within the ureter. Also none within the urinary bladder. ABDOMINAL AORTA: Abdominal aorta is not enlarged. LYMPH NODES:There is no retroperitoneal nor paraaortic adenopathy. ABDOMINAL WALL: No evidence of significant anterior abdominal wall nor inguinal hernia. GI: Small hiatal hernia noted. No evidence of bowel obstruction, free air, nor abscess. PELVIS: GI: The appendix is in the anterior left abdomen, this related to a mobile cecum.. There is no evide nce of acute appendicitis.There is some circumferential thickening of an area of sigmoid which also e xhibits diverticuli.. There is, however, no evidence of obvious acute diverticulitis. LYMPH NODES: There is no intrapelvic nor inguinal adenopathy. REPRODUCTIVE: The uterus is surgically absent. There are no abnormal adnexal masses nor free fluid i n the pelvis. URINARY BLADDER: Mildly distended. No intraluminal radiopaque calculi nor obvious masses. OSSEOUS: Advanced disc space narrowing at L5-S1. There is mild degenerative anterolisthesis L4 upon L5. Normal disc height at this level. There are no significant osseous lesions. IMPRESSION: 1. No evidence of acute appendicitis. Indeed, the normal appearing appendix is in the anterior left abdomen in this patient has a mobile cecum. 2. There is some thickening of the wall of the sigmoid-rectosigmoid and diverticuli but no obvious ev idence of acute diverticulitis. No free air. No abscess. No ascites. 3. Previous cholecystectomy and hysterectomy again noted. No evidence of bowel obstruction. No dila tation of the biliary tree. 4. Stable unchanged angiomyolipoma in the left kidney again noted No obvious acute intra abdominal/intra pelvisc process. RADIATION DOSE DELIVERED: 733.34mGy.cm Total DLP DATA REPOSITORY: All CT scans at this facility are submitted to the National Radiology Data Registry (NRDR) Dose Index Registry (DIR) with the [employer] (ACR). RADIATION OPTIMIZATION: All CT scans at this facility use at least one of these dose optimization te chniques: automated exposure control; mA and/or kV adjustment per patient size (includes targeted exa ms where dose is matched to clinical indication); or iterative reconstruction.
--- NOTE | 2024-03-10 | DI.RAD_ITS ---
Exam(s) XR CHEST 2V PA LATERAL EXAM: XR CHEST 2V PA LATERAL CLINICAL HISTORY: fever. TECHNIQUE: 2D digital imaging was performed. COMPARISON: CR,XR XR PORTABLE CHEST AP from 12/03/2023 FINDINGS: 2 views: Heart size is normal. The mediastinum is not widened. Lungs are clear. No infiltrates nor pleural effusions. IMPRESSION: No acute pulmonary findings. DATA REPOSITORY: RADIATION DOSE DELIVERED:
--- NOTE | 2024-03-10 | RT.EKG_ITS ---
APPROVED REPORT Exam: Resting ECG Reason for Exam: hypertension Patient Location: E HR:58 bpm ECG Measurements Heart Rate 58 AXIS HI 190 P 41 QRSd 105 QRS 44 QT 428 T 61 QTc 420 Conclusion Sinus bradycardia...rate< [address] segment or T wave abnormalities to suggest occlusive [place]
--- NOTE | 2024-03-10 00:05 | ED.GENADUL_ITS ---
Discharge Plan Disposition Patient Disposition: Home Condition: Good Discharge Details Clinical Impression: Headache, Hypertension, Chronic hyponatremia Primary Care Provider: Cathie Strange ED Provider: Rose Marie Sy Home Meds and New Rx's Prescriptions: New amlodipine 5 mg tablet 5 mg PO DAILY Qty: 10 0RF Continued trazodone 100 mg tablet 200 mg PO QHS lisinopril 40 mg tablet 40 mg PO DAILY Qty: 90 3RF lamotrigine 200 mg tablet 200 mg PO QHS lamotrigine 100 mg tablet 100 mg PO QAM Rexulti 2 mg tablet 2 mg PO DAILY simvastatin 20 mg tablet 20 mg PO DAILY Qty: 90 3RF diclofenac sodium [Voltaren Arthritis Pain] 1 % gel 2 g topical QID PRN (Reason: joint pain) Qty: 100 1RF Rx Instructions: apply to single elbow, wrist or hand; for hand includes palm/fingers/back of hand esomeprazole magnesium [Nexium] 40 mg capsule,delayed release(DR/EC) 40 mg PO DAILY clotrimazole 1 % cream 1 applic topical BID Qty: 45 0RF Rx Instructions: Apply to affected and surrounding area(s) twice daily until clinical resolution, typically 1 to 4 weeks cyclobenzaprine 10 mg tablet 10 mg PO HS PRN (Reason: muscle spasm) Qty: 30 0RF rizatriptan [Maxalt-ELECTROPHYSIOLOGY TECH] 10 mg tablet,disintegrating 10 mg PO ONCE PRN (Reason: migraine headache) Qty: 60 2RF Rx Instructions: may repeat once after at least 2 hours levocetirizine [Xyzal] 5 mg tablet 5 mg PO DAILY PRN (Reason: allergy symptoms) Qty: 90 1RF jukkjfnlsmnf-uoqs-qfrta acid 18-400 mg-mcg Tablet 1 tab PO DAILY sertraline 100 mg tablet 100 mg PO DAILY Discontinued chlorthalidone 25 mg tablet 25 mg PO DAILY Qty: 90 3RF hydrochlorothiazide 25 mg tablet 25 mg PO DAILY Discharge Instructions Instructions: High Blood Pressure ED, Hyponatremia Additional Instructions: Your blood sodium was low here today. Schedule an appointment for as soon as possible to see your primary care doctor, ideally on Tuesday, no later than Tuesday of next week. Do not take your chlorthalidone or hydrochlorothiazide until you see your primary care doctor and discuss with them. Until then, take 5mg of amlodipine once a day. This has been sent to your pharmacy. Take an over the counter magnesium supplement until you are able to see your PCP. Do not drink alcohol; any alcohol can worsen your sodium levels. Retrun to the emergency department for new or worsening symptoms including severe headache, vomiting, confusion, vision changes, or if you have any other concerns. Referrals: Cathie Strange NP [Primary Care Provider] - [facility] General Mode of arrival: ambulatory . Date/Time Provider Initiated Documentation: 03/09/24 23:46 . Limitations to Documentation: no limitations . Information obtained by: patient . HPI Narrative: 69yo F presenting with multiple symptoms onset over the past hour; headache, 'dizzy', nausea, abdominal pain. Headache is dull, at the top of her head, moderate, and not similar to any prior headaches. No recent falls or head injury. No temporal pain. No fevers or neck pain. Tried tylenol with no improvement. Feels 'dizzy'; denies feeling like she is going to pass out or like the room is spinning, unable to further clarify what 'dizzy' means. Denies numbness, tingling, weakness, double vision, vision changes, vertigo. Associated nausea, no vomiting. Mid-abdominal pain which feels similar to prior diverticulitis, some non-bloody diarrhea lately. Has chronic right hip/sa croiliac pain which is not worse than usual. Denies back pain. She is otherwise in her usual state of health with no rash, dysuria, hematuria, chest pain, shortness of breath, LE edema, or other concerns. Related Data Home Medications Medication Instructions Recorded Confirmed multivitamin-ferrous 1 tab PO DAILY 02/10/22 03/09/24 fumarate-folic acid 18 mg-400 mcg tablet trazodone 100 mg tablet 200 mg PO QHS 04/18/23 03/09/24 sertraline 100 mg tablet 100 mg PO DAILY 09/30/23 03/09/24 diclofenac sodium 1 % topical gel 2 g topical QID PRN joint pain 10/04/23 03/09/24 (Voltaren Arthritis Pain) #100 grams lamotrigine 100 mg tablet 100 mg PO QAM 10/21/23 03/09/24 lamotrigine 200 mg tablet 200 mg PO QHS 10/21/23 03/09/24 lisinopril 40 mg tablet 40 mg PO DAILY #90 tabs 10/21/23 03/09/24 esomeprazole magnesium 40 mg 40 mg PO DAILY 12/30/23 03/09/24 capsule,delayed release (Nexium) clotrimazole 1 % topical cream 1 applic topical BID #45 grams 01/09/24 03/09/24 brexpiprazole 2 mg tablet (Rexulti) 2 mg PO DAILY 02/15/24 03/09/24 simvastatin 20 mg tablet 20 mg PO DAILY #90 tabs 02/15/24 03/09/24 cyclobenzaprine 10 mg tablet 10 mg PO HS PRN muscle spasm #30 02/23/24 03/09/24 tabs rizatriptan 10 mg disintegrating 10 mg PO ONCE PRN migraine 02/24/24 03/09/24 tablet (Maxalt-ELECTROPHYSIOLOGY TECH) headache #60 tabs levocetirizine 5 mg tablet (Xyzal) 5 mg PO DAILY PRN allergy symptoms 03/05/24 03/09/24 #90 tabs amlodipine 5 mg tablet 5 mg PO DAILY #10 tabs 03/10/24 Previous Rx's Medication Instructions Recorded diclofenac sodium 1 % topical gel 2 g topical QID PRN joint pain 10/04/23 (Voltaren Arthritis Pain) #100 grams lisinopril 40 mg tablet 40 mg PO DAILY #90 tabs 10/21/23 clotrimazole 1 % topical cream 1 applic topical BID #45 grams 01/09/24 simvastatin 20 mg tablet 20 mg PO DAILY #90 tabs 02/15/24 cyclobenzaprine 10 mg tablet 10 mg PO HS PRN muscle spasm #30 02/23/24 tabs rizatriptan 10 mg disintegrating 10 mg PO ONCE PRN migraine 02/24/24 tablet (Maxalt-ELECTROPHYSIOLOGY TECH) headache #60 tabs levocetirizine 5 mg tablet (Xyzal) 5 mg PO DAILY PRN allergy symptoms 03/05/24 #90 tabs amlodipine 5 mg tablet 5 mg PO DAILY #10 tabs 03/10/24 Allergies Allergy/AdvReac Type Severity Reaction Status Date / Time latex AdvReac Severe Skin Rash Verified 03/09/24 23:43 amoxicillin [From Augmentin] AdvReac Agitation Unverified 07/05/24 23:43 azithromycin [From Zithromax] AdvReac headache, Verified 03/09/24 23:43 hearing loss,double vision, DAVILA ciprofloxacin [From Cipro] AdvReac Dizziness/L Verified 03/09/24 23:43 ightheade clavulanic acid AdvReac Agitation Unverified 03/09/24 23:43 [From Augmentin] codeine AdvReac GI upset Verified 03/09/24 23:43 doxycycline AdvReac Other (See Unverified 03/09/24 23:43 Comment) metronidazole [From Flagyl] AdvReac Agitation Unverified 03/09/24 23:43 Penicillins AdvReac Other (See Unverified 03/09/24 23:43 Comment) Sulfa (Sulfonamide AdvReac anxious Verified 03/09/24 23:43 Antibiotics) General Stated Complaint: Vascular MARIAM: 2 Review of Systems Narrative: see HPI Exam Narrative Exam Narrative: General: Alert, well appearing, well nourished, in no acute distress. Head: Normocephalic, atraumatic. No temporal tenderness. Neck: Trachea midline, ?Neck supple. ENT: ?MMM.? No oropharygeal lesions or exudate. Cardiac: ?RRR, no murmurs appreciated Resp: No respiratory distress. CTAB. Abd: ?Soft, non-distended, TTP of periumbilical area with no rebound or guarding : ?No suprapubic tenderness. No CVA tenderness. Back: No midline tenderness. Right hip mild TTP. Extremities: ?No deformities.? No peripheral edema. Neuro: ? GCS 15.? PERRL.? EOMI.? Fluent speech, no dysarthria. Motor- 5/5 strength symmetric bilateral upper and lower extremities including shoulder abductors/adductors, elbow flexors/extensors, wrist flexors/extensors, finger abductors/adductors, hipflexors/extensors, knee flexors/extensors, ankle dorsiflexors and planter flexors. Sensation- ?Intact to light touch and symmetric multiple dermatomes including upper and lower extremities Coordination- No dysmetria on finger to nose CRANIAL NERVES: II: Pupils equal and reactive, III, IV, : EOM intact, no gaze preference or deviation, no nystagmus. V: normal sensation in V1, V2, and V3 segments bilaterally VII: no asymmetry, no nasolabial fold flattening VIII: normal hearing to speech IX, X: normal palatal elevation, no uvular deviation XI: 5/5 head turn and 5/5 shoulder shrug bilaterally XII: midline tongue protrusion Course Vital Signs Vital signs: Vital Signs Temperature 38.6 C H 03/09/24 23:36 Pulse 68 03/09/24 23:36 Respiratory Rate 18 03/09/24 23:36 Blood Pressure 208/117 H 03/09/24 23:36 Temperature 38.6 C H 03/09/24 23:36 Temperature Source Temporal Artery Scan 03/09/24 23:36 Pulse 68 03/09/24 23:36 Respiratory Rate 18 03/09/24 23:36 Respiratory Effort Normal, Non-Labored 03/09/24 23:39 Blood Pressure 208/117 H 03/09/24 23:36 Pain Level 6 03/09/24 23:36 Medical Decision Making 69yo F presenting with multiple symptoms onset over the past hour; headache, 'dizzy', nausea, abdominal pain. Hx of migraines but headache today does not feel similar. Also reports non-specific dizziness, nausea, and mid-abdominal pain similar to prior diverticulitis. No trauma to suggest ICH. No temporal tenderness to suggest GCA. No fever or neck pain to suggest meningitis. Hypertensive on arrival 208/117, vital signs otherwise reassuring. Normal neurologic exam, some abdominal tenderness on exam with no rebound or guarding. Not overtly volume overloaded, no indication of pulmonary edema or SCAPE. Must consider hypertensive encephalopathy. Will give home dose antihypertensives (pt reports lisinopril, HCTZ), evaluate further for hypertensive emergency with labs, urine. Absent clear findings of end-organ damage, would not acutely lower BP with IV medication. Head CT for atypical headache, abd CT for abdominal pain. No back pain, chest pain, or neurologic symptoms to suggest aortic dissection. -EKG sinus, no ST segment or T wave abnormalities to suggest occlusive [place]. -Head CT independently reviewed, no mass or bleed on my view, agree with radiology read below. Given toradol for DAVILA. -CXR independently reviewed, no pulmonary edema or focal pneumonia on my view, agree with radiology read below. -Abd/pelvis CT independently reviewed, no bowel obstruction or free fluid on my view, agree with radiology read below. -CMP with marked hyponatremia to 126. Does appear to have component of chronic hyponatremia on [facility] record review, most recently 132 on 12/03/23 and as low as 124 on 05/26/23. This may be driving some of her nonspecific symptoms today. Regrettably did receive home dose HCTZ already (albeit with good effect on blood pressure, repeat SBP 160's). Not clearly symptomatic acute hyponatremia; would not give hypertonic saline. I do strongly suspect HCTZ is playing a role as patient reports this is a relatively new medication for her. Will give small 500cc NS bolus and repeat BMP. Reviewed records from May; pt was admitted under observation status for abdominal pain, Na was 124 on admission trended upward 129 to 133 on discharge. I am unable to see any discussion of this in the notes, unclear what was driving it at that time. Remainder of labs reviewed as below. -Mg slightly low at 1.4 (oral replacement ordered) -CBC with no leukoctyosos or anemia -Lactate normal -ESR & CRP normal (reassuring against GCA) -Troponin negative -UA not suggestive of infection Repeat BMP with Na improved to 128. BP also continuing to improve now 140's/60's. Will give additional IVF followed by 3rd BMP. Headache persists; will add compazine. 3rd BMP stable/marginal improvement at 129. Patient with moderate hyponatremia (most likely chronic, worsened in the setting of HCTZ) with possibly mild symptoms though difficult to ascertain if DAVILA & nausea are due to this vs migraines. On reassessment she is well appearing wtih reassuring vital signs, states she feels improved, would like to go home. I do feel she needs hospital admission; discuss with [facility] hospitalist online marketing analyst Dr. Carballo who concurs. Will give IV magnesium prior to discharge, have patient hold chlorthalidone and HCTZ until she is able to see her PCP. Given degree of hypertension on initial presentation, will have her start 5mg amlodipine in the interim. Discharged home; discharge instructions and return precautions were reviewed with patient who verbalized understanding. All questions were answered and she is in full agreement with the plan. Medical Records Medical records reviewed: Yes I reviewed the patient's medical records. Imaging Data Radiologic Study: Imaging: X-Ray Radiologist's impression: CT head: IMPRESSION: 1. No evidence of acute pathology. 2. Areas of diminished density in bilateral white matter likely representing chronic small vessel ischemic changes. CT abd/pelv: IMPRESSION: 1. No acute intra-abdominal or pelvic process. 2. Normal appendix (coronal images 24-28) - cecum and appendix are located within the left lower quadrant region. CXR: IMPRESSION: No active pulmonary disease. N Lab Data Lab results reviewed: Yes I reviewed the patient's lab results. Labs: Laboratory Tests Range/Units 03/10/24 00:01 WBC (4.4-10.8) 10^3/uL 7.95 RBC (3.93-5.22) 10^6/uL 4.07 Hgb (11.2-15.7) g/dL 13.6 Hct (36.0-46.0) % 38.7 MCV (80-95) fL 95 MCH (27.0-33.0) pg 33.4 H MCHC (32.0-36.0) % 35.1 RDW (11.7-14.6) % 11.0 L Plt Count (130-400) 10^3/uL 151 MPV (8.0-11.0) fL 10.1 Immature Gran % % 2.0 Neutrophils % % 43.4 Lymphocytes % % 39.4 Monocytes % % 12.1 Eosinophils % % 2.5 Basophils % % 0.6 Nucleated RBC % (0.0-0.3) % 0.0 Absolute Neutrophils (1.2-6.7) 10^3/uL 3.45 Absolute Lymphocytes (1.2-3.4) 10^3/uL 3.13 Absolute Monocytes (0.1-0.8) 10^3/uL 0.96 H Absolute Eosinophils (0.0-0.7) 10^3/uL 0.20 Absolute Basophils (0.0-0.2) 10^3/uL 0.05 ESR (0-30) mm/hr 8 VBG Lactate (0.6-1.4) mmol/L 1.1 Sodium (136-145) mmol/L 126 L Potassium (3.5-5.1) mmol/L 4.1 Chloride (98-107) mmol/L 91 L Carbon Dioxide (21.0-32.0) mmol/L 28.1 Anion Gap (3-11) mmol/L 6.9 BUN (7-18) mg/dL 10 Creatinine (0.55-1.02) mg/dL 0.8 Est GFR (CKD-EPI 2020) (mL/min/1.73m2) 80.71 Glucose (74-106) mg/dL 88 Calcium (8.5-10.1) mg/dL 8.8 Magnesium (1.8-2.4) mg/dL 1.4 L Total Bilirubin (0.2-1.0) mg/dL 0.22 AST (15-37) U/L 16 ALT (14-59) U/L 20 Alkaline Phosphatase (46-116) U/L 52 Troponin I (< or =60) ng/L < 50 C-Reactive Protein (<or=0.5) mg/dL < 0.50 Total Protein (6.4-8.2) g/dL 7.6 Albumin (3.4-5.0) g/dL 4.0 Urine Color (Yellow) Yellow Urine Clarity (Clear) Clear Urine pH (5-8) 7.0 Ur Specific [place] (1.005-1.025) 1.010 Urine Protein (Neg-Trace) mg/dL Negative Urine Ketones (Negative) mg/dL Negative Urine Blood (Negative) Negative Urine Nitrite (Negative) Negative Urine Bilirubin (Negative) Negative Urine Urobilinogen (Up to 0.2) mg/dL 0.2 Ur Leukocyte Esterase (Negative) Moderate H Urine RBC (0-2) HPF Negative Urine WBC (0-5) HPF 3-5 Ur Epithelial Cells (Negative) HPF Rare Urine Crystals (Negative) HPF Negative Urine Bacteria (Negative) HPF Negative Urine Casts (Negative) LPF Negative Urine Mucus (Negative) Negative Ur Culture Indicated? No Urine Glucose (Negative) mg/dL Negative Quality:SDOH Health Related Social Needs: No Data to Display PFSH All Active Problems (Updated 03/10/24 @ 05:46 by Rose Marie Sy MD) Chronic hyponatremia (Acute) Hypertension (Chronic) Headache (Acute) Bipolar I disorder (Chronic) [facility] Psychiatry Cramer's esophagus (Chronic) On 2009 EGD, not on 2012 EGD, on 2023 EGD Essential hypertension (Chronic) Colon stricture (Chronic) Followed by [facility] Diverticular stricture (Chronic) Followed by [facility] Chronic diarrhea (Chronic) Hyperlipidemia (Chronic) Gastroesophageal reflux disease with esophagitis (Chronic) Allergic rhinitis (Chronic) Migraine (Chronic) Multiple cranial nerve palsy (Chronic) Prediabetes (Chronic) Hiatal hernia (Chronic) Diverticulosis of colon (Chronic) Glaucoma (Chronic) Medical History TMJ (temporomandibular joint disorder) Diverticulitis of sigmoid colon Multiple episodes, seeing [facility] Diabetes mellitus Surgical History S/P cholecystectomy S/P BSO (bilateral salpingo-oophorectomy) (07/03/15) Status post foot surgery History of total vaginal hysterectomy (TVH) (07/03/15) With cystoscopy and rectocele repair History of esophagogastroduodenoscopy History of bilateral ligation of fallopian tubes Family History Mother Stroke Lung cancer Hypertension Father Heart disease Hyperlipidemia Hypertension Brother Heart disease DOUBLE BYPASS AGE 48 (NON SMOKER) Hyperlipidemia Son Depression Daughter Depression Maternal Grandfather Lung cancer Maternal Grandmother Heart disease Myocardial infarction Paternal Grandfather No problems noted. Paternal Grandmother Diabetes Social History Smoking/Tobacco Use Status: Former Tobacco Use Quit Date: 09/05/77 Smoking risk assessment performed?: Yes Alcohol Intake: never Drug use: Never Substance use type: does not use Housing: house Do you feel safe at home: Yes Do you feel safe in your relationship?: Yes
[2024-03-10 00:15] LABS: Lactate 1.1 mmol/L (0.6-1.4)
[2024-03-10 00:17] LABS: Abs Immature Grans 0.16 10^3/uL (0.0-0.06); Absolute Basophil Count 0.05 10^3/uL (0.0-0.2); Absolute Lymphocyte Count 3.13 10^3/uL (1.2-3.4); Absolute Monocyte Count 0.96 10^3/uL (0.1-0.8); Absolute Neutrophil Count 3.45 10^3/uL (1.2-6.7); Basophils % 0.6 %; Eosinophils % 2.5 %; HCT 38.7 % (36.0-46.0); HGB 13.6 g/dL (11.2-15.7); Lymphocytes % 39.4 %; MCH 33.4 pg (27.0-33.0); MCHC 35.1 % (32.0-36.0); MCV 95 fL (80-95); MPV 10.1 fL (8.0-11.0); Monocytes % 12.1 %; Neutrophils % 43.4 %; Platelet Count 151 10^3/uL (130-400); RBC 4.07 10^6/uL (3.93-5.22); RDW-SD 38.5 fL; WBC 7.95 10^3/uL (4.4-10.8)
[2024-03-10] MEDS: LORazepam 1 MG TAB PO (00:21)
[2024-03-10 00:25] LABS: ESR 8 mm/hr (0-30)
[2024-03-10 00:28] LABS: Bilirubin Negative (Negative); Blood Negative (Negative); Clarity Clear (Clear); Glucose Negative (Negative); Ketones Negative (Negative); Leukocyte Esterase Moderate (Negative); Nitrite Negative (Negative); Urobilinogen 0.2 mg/dL (Up to 0.2)
[2024-03-10 00:33] LABS: Bacteria Negative HPF (Negative); C & S Indicated? No; Casts Negative LPF (Negative); Crystals Negative HPF (Negative); Epithelial Cells Rare HPF (Negative); Mucus Negative (Negative); RBC Negative HPF (0-2)
[2024-03-10] MEDS: Lisinopril 20 MG TAB 40 MG PO (00:35)
[2024-03-10] MEDS: hydroCHLOROthiazide 25 MG TAB PO (00:35)
[2024-03-10 00:37] LABS: ALT 20 U/L (14-59); AST 16 U/L (15-37); Alkaline Phosphatase 52 U/L (46-116); Anion Gap 6.9 mmol/L (3-11); BUN 10 mg/dL (7-18); Bilirubin, Total 0.22 mg/dL (0.2-1.0); C-Reactive Protein < 0.50 mg/dL (<or=0.5); CO2 28.1 mmol/L (21.0-32.0); CREATININE 0.8 mg/dL (0.55-1.02); Calcium 8.8 mg/dL (8.5-10.1); Chloride 91 mmol/L (98-107); Estimated GFR 80.71 (mL/min/1.73m2); Glucose 88 mg/dL (74-106); Magnesium 1.4 mg/dL (1.8-2.4); Potassium 4.1 mmol/L (3.5-5.1); Sodium 126 mmol/L (136-145); Total Protein 7.6 g/dL (6.4-8.2); Troponin I < 50 ng/L (< or =60)
[2024-03-10] MEDS: Normal Saline - Diluent 50 ML VIAL IJ (00:39)
[2024-03-10] MEDS: Omnipaque 350 MG/ML 100 ML BTL IJ (00:42)
--- NOTE | 2024-03-10 01:27 | DI.VRAD_ITS ---
PROCEDURE INFORMATION: Exam: CT Head Without Contrast Exam date and time: 03/10/2024 12:40 AM Age: 69 years old Clinical indication: Pain; Headache; Additional info: Headache, hypertension, nonfocal neuro exam TECHNIQUE: Imaging protocol: Computed tomography of the head without contrast. COMPARISON: CT HEAD WO 03/16/2023 11:16 PM FINDINGS: Brain: There are areas of diminished density in the white matter bilaterally . Findings likely represent foci of chronic small vessel ischemic changes. Cerebrum is otherwise unremarkable. Baldwin-white matter differentiation is intact and otherwise unremarkable. No mass lesion is seen. No mass effect or midline shift. Thalamus is unremarkable. No evidence of subdural or epidural bleed. No evidence of intraparenchymal hemorrhage. Cerebellum is unremarkable. No posterior fossa mass lesion or mass effect. No pathologic edema. No evidence of cerebellar hemorrhage. Cerebral ventricles: No ventriculomegaly. Paranasal sinuses: Visualized sinuses are unremarkable. No fluid levels. Mastoid air cells: Visualized mastoid air cells are well aerated. Bones: Unremarkable. No acute fracture. Soft tissues: Unremarkable. IMPRESSION: 1. No evidence of acute pathology. 2. Areas of diminished density in bilateral white matter likely representing chronic small vessel ischemic changes. Dictated and Authenticated by: Yuki Hernández MD. Ordering:LAMONT Trotter MD
--- NOTE | 2024-03-10 01:29 | DI.VRAD_ITS ---
PROCEDURE INFORMATION: Exam: XR Chest Exam date and time: 03/10/2024 12:34 AM Age: 69 years old Clinical indication: Fever TECHNIQUE: Imaging protocol: Radiologic exam of the chest. Views: 2 views. COMPARISON: CR XR PORTABLE CHEST AP 12/03/2023 6:39 PM FINDINGS: Tubes, catheters and devices: Cardiac leads superimposed over the chest. Lungs: No alveolar infiltrate. Pleural spaces: No pleural fluid collection. No pneumothorax. Heart/Mediastinum: Normal heart size. Bones/joints: Unremarkable for patient age. IMPRESSION: No active pulmonary disease. No acute change compared to 12/03/2023. Dictated and Authenticated by: Luis Miguel De Jesus MD. Ordering:LAMONT Trotter MD
--- NOTE | 2024-03-10 01:47 | DI.VRAD_ITS ---
PROCEDURE INFORMATION: Exam: CT Abdomen And Pelvis With Contrast Exam date and time: 03/10/2024 12:43 AM Age: 69 years old Clinical indication: Nausea; periumbilical abd pain, TTP, nausea TECHNIQUE: Imaging protocol: Computed tomography of the abdomen and pelvis with contrast. Contrast material: OMNI 350; Contrast volume: 100 ml; Contrast route: INTRAVENOUS (IV); COMPARISON: CT ABDOMEN PELVIS W 05/26/2023 9:27 AM FINDINGS: Lungs: Bilateral lower lobe areas of linear parenchymal scarring or subsegmental collapse / atelectasis. Diaphragm: Small hiatal hernia. Liver: Hepatomegaly. Gallbladder and biliary ducts: Status post cholecystectomy with stable prominence of the biliary system. Pancreas: Normal. No ductal dilation. Spleen: Two stable hypodensities within the spleen (axial images 38 and 67, series 5). Adrenal glands: Normal. No mass. Kidneys and ureters: No hydronephrosis. No calcified renal or ureteral stones. No perinephric stranding or perinephric fluid. 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 Stomach and bowel: The cecum is located in the left lower quadrant region. No bowel obstruction. A few scattered colon diverticula without evidence of diverticulitis. Appendix: Normal appendix (coronal images 24-28) - cecum and appendix are located within the left lower quadrant region. Intraperitoneal space: No free air. No significant fluid collection. Vasculature: The abdominal aorta is normal in caliber without aneurysm or dissection. Lymph nodes: No enlarged lymph nodes. Urinary bladder: Unremarkable as visualized. Reproductive: Prior hysterectomy. Bones/joints: Unremarkable. No acute fracture. Soft tissues: Unremarkable. IMPRESSION: 1. No acute intra-abdominal or pelvic process. 2. Normal appendix (coronal images 24-28) - cecum and appendix are located within the left lower quadrant region. Dictated and Authenticated by: Luis Miguel De Jesus MD. Ordering:LAMONT Trotter MD
[2024-03-10] MEDS: Ketorolac 15 MG/ML VIAL IVP (02:09)
[2024-03-10] MEDS: Magnesium Gluconate 500 MG TAB PO (02:35)
[2024-03-10] MEDS: Normal Saline 250 ML 500 ML IV (03:03)
[2024-03-10 04:10] LABS: Anion Gap 6.2 mmol/L (3-11); BUN 9 mg/dL (7-18); CO2 27.8 mmol/L (21.0-32.0); CREATININE 0.7 mg/dL (0.55-1.02); Calcium 8.6 mg/dL (8.5-10.1); Chloride 94 mmol/L (98-107); Estimated GFR 94.73 (mL/min/1.73m2); Glucose 103 mg/dL (74-106); Potassium 3.9 mmol/L (3.5-5.1); Sodium 128 mmol/L (136-145)
[2024-03-10 04:18] LABS: Troponin I < 50 ng/L (< or =60)
[2024-03-10] MEDS: Normal Saline 1,000 ML 1000 ML IV (04:20)
[2024-03-10] MEDS: Prochlorperazine 10 MG/2 ML VIAL 5 MG IVP (05:16)
[2024-03-10 05:48] LABS: Anion Gap 8.6 mmol/L (3-11); BUN 9 mg/dL (7-18); CO2 26.4 mmol/L (21.0-32.0); CREATININE 0.7 mg/dL (0.55-1.02); Calcium 8.1 mg/dL (8.5-10.1); Chloride 94 mmol/L (98-107); Estimated GFR 94.73 (mL/min/1.73m2); Glucose 106 mg/dL (74-106); Sodium 129 mmol/L (136-145)
[2024-03-10] MEDS: MAGNESIUM SULFATE 1 GM/100 ML BAG IVINF (06:18)
[2024-03-10] MEDS: amLODIPine 5 MG TAB 15 MG PO (07:34)
== END 2024-03-10 07:36 | disposition home or self-care (01) ==
PROVIDERS: Emergency Provider Student in an Organized Health Care Education/Training Program; PCP Nurse Practitioner Family
DX: R51.9 Headache, unspecified (principal); I10 Essential (primary) hypertension; E87.1 Hypo-osmolality and hyponatremia; E11.9 Type 2 diabetes mellitus without complications; E78.5 Hyperlipidemia, unspecified; R00.1 Bradycardia, unspecified; Z90.49 Acquired absence of other specified parts of digestive tract; Z90.710 Acquired absence of both cervix and uterus; Z87.891 Personal history of nicotine dependence
CPT/HCPCS: 80048; 80053; 85652; 93005; 96361; 96365; 96375; 99285; 70450; 71046; 74177; 81003; 81015; 83605; 83735; 84484; 85025; 86140; 93010; J0780; J1885; J3475; J3490

== ENCOUNTER 2024-03-16 11:11 | Emergency (ER) | payer OTHER, MEDICAID, SELFPAY ==
--- NOTE | 2024-03-16 11:00 | RT.EKG_ITS ---
APPROVED REPORT Exam: Resting ECG Reason for Exam: Dizziness, back pain Patient Location: E HR:71 bpm ECG Measurements Heart Rate 71 AXIS NM 140 P 56 QRSd 101 QRS 46 QT 393 T 58 QTc 427 Conclusion Sinus rhythm...normal P axis, V-rate 60- 99
[2024-03-16 11:14] VITALS: BP 133/59; PULSE 74; RESP 18; TEMP 36.4; O2SAT 96
[2024-03-16 12:40] VITALS: RESP 14; TEMP 36.4
[2024-03-16 13:37] LABS: Abs Immature Grans 0.16 10^3/uL (0.0-0.06); Absolute Basophil Count 0.02 10^3/uL (0.0-0.2); Absolute Monocyte Count 0.49 10^3/uL (0.1-0.8); Absolute Neutrophil Count 3.12 10^3/uL (1.2-6.7); Basophils % 0.4 %; Eosinophils % 1.9 %; HCT 38.8 % (36.0-46.0); HGB 13.3 g/dL (11.2-15.7); Immature Grans % 3.1 %; MCH 32.8 pg (27.0-33.0); MCHC 34.3 % (32.0-36.0); MCV 96 fL (80-95); MPV 9.5 fL (8.0-11.0); Monocytes % 9.4 %; Neutrophils % 60.2 %; Platelet Count 158 10^3/uL (130-400); RBC 4.05 10^6/uL (3.93-5.22); RDW 11.4 % (11.7-14.6); RDW-SD 40.4 fL; WBC 5.19 10^3/uL (4.4-10.8)
[2024-03-16] MEDS: HYDROmorphone 2 MG/ML SYR 1 MG IVP (13:44)
[2024-03-16 13:49] LABS: Bilirubin Negative (Negative); Blood Negative (Negative); Clarity Clear (Clear); Glucose Negative (Negative); Ketones Negative (Negative); Leukocyte Esterase Negative (Negative); Nitrite Negative (Negative); Specific Gravity 1.015 (1.005-1.025); Urobilinogen 0.2 mg/dL (Up to 0.2); pH 7.5 (5-8)
[2024-03-16 13:56] LABS: ALT 23 U/L (14-59); AST 14 U/L (15-37); Alkaline Phosphatase 52 U/L (46-116); Anion Gap 6.4 mmol/L (3-11); BUN 13 mg/dL (7-18); Bilirubin, Total 0.38 mg/dL (0.2-1.0); CO2 28.6 mmol/L (21.0-32.0); Calcium 9.1 mg/dL (8.5-10.1); Chloride 95 mmol/L (98-107); Estimated GFR 61.75 (mL/min/1.73m2); Glucose 105 mg/dL (74-106); Lipase 31 U/L (16-77); Magnesium 1.7 mg/dL (1.8-2.4); Potassium 4.2 mmol/L (3.5-5.1); Sodium 130 mmol/L (136-145); Total Protein 7.5 g/dL (6.4-8.2); Troponin I < 50 ng/L (< or =60)
--- NOTE | 2024-03-16 14:36 | ED.GENADUL_ITS ---
Discharge Plan Disposition Patient Disposition: Home Condition: Stable Discharge Details Clinical Impression: Back pain, Abdominal pain Primary Care Provider: Cathie Strange ED Provider: Vlad Samaniego Home Meds and New Rx's Prescriptions: Continued trazodone 100 mg tablet 200 mg PO QHS lisinopril 40 mg tablet 40 mg PO DAILY Qty: 90 3RF lamotrigine 200 mg tablet 200 mg PO QHS lamotrigine 100 mg tablet 100 mg PO QAM Rexulti 2 mg tablet 2 mg PO DAILY simvastatin 20 mg tablet 20 mg PO DAILY Qty: 90 3RF Patient Comments: pt thinks she is now on 40 mg diclofenac sodium [Voltaren Arthritis Pain] 1 % gel 2 g topical QID PRN (Reason: joint pain) Qty: 100 1RF Rx Instructions: apply to single elbow, wrist or hand; for hand includes palm/fingers/back of hand esomeprazole magnesium [Nexium] 40 mg capsule,delayed release(DR/EC) 40 mg PO DAILY cyclobenzaprine 10 mg tablet 10 mg PO HS PRN (Reason: muscle spasm) Qty: 30 0RF rizatriptan [Maxalt-CUST[employer]ING SPECIALIST] 10 mg tablet,disintegrating 10 mg PO ONCE PRN (Reason: migraine headache) Qty: 60 2RF Rx Instructions: may repeat once after at least 2 hours [id number] acid 18-400 mg-mcg Tablet 1 tab PO DAILY sertraline 100 mg tablet 100 mg PO DAILY Discharge Instructions Instructions: Abdominal Pain, Adult ED, Low Back Pain ED Additional Instructions: Please contact your primary care physician to arrange follow-up. Return to the ER immediately for any worsening or new concerning symptoms. Referrals: Cathie Strange NP [Primary Care Provider] - [facility] General Date/Time Provider Initiated Documentation: 03/16/24 12:24 . Limitations to Documentation: no limitations . Information obtained by: patient . HPI Narrative: 69-year-old female with multiple medical problems including history of chronic hyponatremia, hypertension, bipolar 1 disorder, diverticular stricture, colon stricture, chronic diarrhea, hyperlipidemia, GERD, diverticulosis of the colon, here with chief complaint of back pain. Patient notes she has been having abdominal discomfort for the past 2 weeks which she thought was related to her diverticular disease. This morning she woke up feeling quite anxious and subsequently developed significant back pain in her low to mid back. Pain has persisted and is moderate to severe. She is now noting worsening abdominal pain as well. She has no associated chest pain. No fever. No urinary symptoms. Related Data Home Medications ?Medication ?Instructions ?Recorded ?Confirmed multivitamin-ferrous 1 tab PO DAILY 02/10/22 03/16/24 fumarate-folic acid 18 mg-400 mcg tablet trazodone 100 mg tablet 200 mg PO QHS 04/18/23 03/16/24 sertraline 100 mg tablet 100 mg PO DAILY 09/30/23 03/16/24 diclofenac sodium 1 % topical gel 2 g topical QID PRN joint pain 10/04/23 03/16/24 (Voltaren Arthritis Pain) #100 grams lamotrigine 100 mg tablet 100 mg PO QAM 10/21/23 03/16/24 lamotrigine 200 mg tablet 200 mg PO QHS 10/21/23 03/16/24 lisinopril 40 mg tablet 40 mg PO DAILY #90 tabs 10/21/23 03/16/24 esomeprazole magnesium 40 mg 40 mg PO DAILY 12/30/23 03/16/24 capsule,delayed release (Nexium) brexpiprazole 2 mg tablet (Rexulti) 2 mg PO DAILY 02/15/24 03/16/24 simvastatin 20 mg tablet 20 mg PO DAILY #90 tabs 02/15/24 03/16/24 cyclobenzaprine 10 mg tablet 10 mg PO HS PRN muscle spasm #30 02/23/24 03/16/24 tabs rizatriptan 10 mg disintegrating 10 mg PO ONCE PRN migraine 02/24/24 03/16/24 tablet (Maxalt-C[employer]ING SPECIALIST) headache #60 tabs Previous Rx's ?Medication ?Instructions ?Recorded diclofenac sodium 1 % topical gel 2 g topical QID PRN joint pain 10/04/23 (Voltaren Arthritis Pain) #100 grams lisinopril 40 mg tablet 40 mg PO DAILY #90 tabs 10/21/23 simvastatin 20 mg tablet 20 mg PO DAILY #90 tabs 02/15/24 cyclobenzaprine 10 mg tablet 10 mg PO HS PRN muscle spasm #30 02/23/24 tabs rizatriptan 10 mg disintegrating 10 mg PO ONCE PRN migraine 02/24/24 tablet (Maxalt-C[employer]ING SPECIALIST) headache #60 tabs Allergies Allergy/AdvReac Type Severity Reaction Status Date / Time latex AdvReac Severe Skin Rash Verified 03/16/24 11:19 amoxicillin (From Augmentin) AdvReac Agitation Unverified 03/16/24 11:19 azithromycin (From Zithromax) AdvReac headache, Verified 03/16/24 11:19 hearing loss,double vision, DAVILA ciprofloxacin (From Cipro) AdvReac Dizziness/L Verified 03/16/24 11:19 ightheade clavulanic acid (From AdvReac Agitation Unverified 03/16/24 11:19 Augmentin) codeine AdvReac GI upset Verified 03/16/24 11:19 doxycycline AdvReac Other (See Unverified 03/16/24 11:19 Comment) metronidazole (From Flagyl) AdvReac Agitation Unverified 03/16/24 11:19 Penicillins AdvReac Other (See Unverified 03/16/24 11:19 Comment) Sulfa (Sulfonamide AdvReac anxious Verified 03/16/24 11:19 Antibiotics) General Stated Complaint: GenMedical MARIAM: 3 Review of Systems Constitutional Constitutional: Denies fever(s) Cardiovascular Cardiovascular: Denies chest pain Gastrointestinal Gastrointestinal: Reports abdominal pain Genitourinary Genitourinary: Denies difficulty voiding Musculoskeletal Musculoskeletal: Reports back pain and Denies deformity Exam Const General: cooperative and no acute distress HENMT Mouth: moist mucous membranes Eyes Conjunctivae: normal conjunctivae Sclera: normal sclerae Resp Auscultation: clear to auscultation bilaterally, no rales, no rhonchi and no wheezes Cardio Rate: regular rate and not tachycardic Rhythm: regular rhythm GI Palpation: soft, not firm, no guarding, no masses, not rigid and tender in the LUQ Auscultation: normal bowel sounds Back/Spine/Pelvis Back: no CVA tenderness Skin General skin exam: no rashes or lesions noted Neuro General: patient alert, patient awake and tone normal Speech: speech normal Extrem General: no edema Psych Appearance: grossly normal Mental Status: mental status grossly normal Speech and Movement: speech and movement normal Course Vital Signs Vital signs: Vital Signs Temperature 36.4 C L 03/16/24 11:14 Pulse 74 03/16/24 11:14 Respiratory Rate 18 03/16/24 11:14 Blood Pressure 133/59 L 03/16/24 11:14 Pulse Oximetry 96 03/16/24 11:14 Temperature 36.4 C L 03/16/24 12:40 Temperature Source Oral 03/16/24 12:40 Pulse 74 03/16/24 11:14 Respiratory Rate 14 03/16/24 12:40 Respiratory Effort Normal 03/16/24 12:40 Respiratory Depth Normal 03/16/24 12:40 Respiratory Pattern Normal 03/16/24 12:40 Blood Pressure 133/59 L 03/16/24 11:14 Blood Pressure Position Sitting 03/16/24 11:14 Pulse Oximetry 96 03/16/24 11:14 Oxygen Delivery Method Room Air 03/16/24 12:40 Oxygen Flow Rate 0 03/16/24 11:14 Pain Level 9 03/16/24 13:44 Comment Pt was driving here because she was not feeling well. On the way she started having L back/flank pain that is getting worse since triage. Pt has hx of kidney stones. 03/16/24 12:40 Lab/Test Results Lab/Test Results: Laboratory Tests Range/Units 03/16/24 03/16/24 12:29 13:24 WBC (4.4-10.8) 10^3/uL 5.19 RBC (3.93-5.22) 10^6/uL 4.05 Hgb (11.2-15.7) g/dL 13.3 Hct (36.0-46.0) % 38.8 MCV (80-95) fL 96 H MCH (27.0-33.0) pg 32.8 MCHC (32.0-36.0) % 34.3 RDW (11.7-14.6) % 11.4 L Plt Count (130-400) 10^3/uL 158 MPV (8.0-11.0) fL 9.5 Immature Gran % % 3.1 Neutrophils % % 60.2 Lymphocytes % % 25.0 Monocytes % % 9.4 Eosinophils % % 1.9 Basophils % % 0.4 Nucleated RBC % (0.0-0.3) % 0.0 Absolute Neutrophils (1.2-6.7) 10^3/uL 3.12 Absolute Lymphocytes (1.2-3.4) 10^3/uL 1.30 Absolute Monocytes (0.1-0.8) 10^3/uL 0.49 Absolute Eosinophils (0.0-0.7) 10^3/uL 0.10 Absolute Basophils (0.0-0.2) 10^3/uL 0.02 Sodium (136-145) mmol/L 130 L Potassium (3.5-5.1) mmol/L 4.2 Chloride (98-107) mmol/L 95 L Carbon Dioxide (21.0-32.0) mmol/L 28.6 Anion Gap (3-11) mmol/L 6.4 BUN (7-18) mg/dL 13 Creatinine (0.55-1.02) mg/dL 1.0 Est GFR (CKD-EPI 2020) (mL/min/1.73m2) 61.75 Glucose (74-106) mg/dL 105 Calcium (8.5-10.1) mg/dL 9.1 Magnesium (1.8-2.4) mg/dL 1.7 L Total Bilirubin (0.2-1.0) mg/dL 0.38 AST (15-37) U/L 14 L ALT (14-59) U/L 23 Alkaline Phosphatase (46-116) U/L 52 Troponin I (< or =60) ng/L < 50 Total Protein (6.4-8.2) g/dL 7.5 Albumin (3.4-5.0) g/dL 4.0 Lipase (16-77) U/L 31 Urine Color (Yellow) Yellow Urine Clarity (Clear) Clear Urine pH (5-8) 7.5 Ur Specific [place] (1.005-1.025) 1.015 Urine Protein (Neg-Trace) mg/dL Negative Urine Ketones (Negative) mg/dL Negative Urine Blood (Negative) Negative Urine Nitrite (Negative) Negative Urine Bilirubin (Negative) Negative Urine Urobilinogen (Up to 0.2) mg/dL 0.2 Ur Leukocyte Esterase (Negative) Negative Urine Glucose (Negative) mg/dL Negative ABO/Rh A Positive Antibody Screen NEGATIVE Medical Decision Making 240p -- 69-year-old female with multiple medical problems including history of anxiety, diverticulosis, renal stones, here with feeling anxious upon waking today, subsequently developing mid back pain, and now increased mid abdominal pain. Patient does have some tenderness in her left upper quadrant. I reviewed recent ED visit and CT of the abdomen pelvis on 03/10/2024 was in terpreted by radiology: 1. No evidence of acute appendicitis. Indeed, the normal appearing appendix is in the anterior left abdomen in this patient has a mobile cecum. 2. There is some thickening of the wall of the sigmoid-rectosigmoid and diverticuli but no obvious evidence of acute diverticulitis. No free air. No abscess. No ascites. 3. Previous cholecystectomy and hysterectomy again noted. No evidence of bowel obstruction. No dilatation of the biliary tree. 4. Stable unchanged angiomyolipoma in the left kidney again noted No obvious acute intra abdominal/intra pelvisc process. Abdominal aorta is not enlarged. Plan to check screening labs. I will treat with Dilaudid 1 mg IV for analgesia. 315p --Labs reviewed: Nondiagnostic. No leukocytosis. Normal hemoglobin. Urinalysis negative. Chronic hyponatremia noted. Patient reassessed and notes she is feeling much better with complete resolution of symptoms. Suspect diverticulitis versus muscoskeletal etiology. Discussed results with the patient she feels pain may be related to diverticulitis flare. She is not currently on antibiotics and refuses antibiotics noting side effects. Given complete resolution of symptoms and benign abdomen on reexamination the plan at this time will be for discharge with close outpatient follow-up for reassessment with her primary care physician. Disposition decision was made weighing the risks and benefits of hospitalization versus outpatient treatment, the risk for further decompensation, and the patient's wishes. The patient was stable and requested discharge. Prior to discharge, my usual and customary return precautions were reviewed with the patient - this included follow-up instructions and reason to return to the emergency department if condition worsens, does not improve as expected, or other new concerns arise. Lab Data Lab results reviewed: Yes I reviewed the patient's lab results. Labs: Laboratory Tests Range/Units 03/16/24 03/16/24 12:29 13:24 WBC (4.4-10.8) 10^3/uL 5.19 RBC (3.93-5.22) 10^6/uL 4.05 Hgb (11.2-15.7) g/dL 13.3 Hct (36.0-46.0) % 38.8 MCV (80-95) fL 96 H MCH (27.0-33.0) pg 32.8 MCHC (32.0-36.0) % 34.3 RDW (11.7-14.6) % 11.4 L Plt Count (130-400) 10^3/uL 158 MPV (8.0-11.0) fL 9.5 Immature Gran % % 3.1 Neutrophils % % 60.2 Lymphocytes % % 25.0 Monocytes % % 9.4 Eosinophils % % 1.9 Basophils % % 0.4 Nucleated RBC % (0.0-0.3) % 0.0 Absolute Neutrophils (1.2-6.7) 10^3/uL 3.12 Absolute Lymphocytes (1.2-3.4) 10^3/uL 1.30 Absolute Monocytes (0.1-0.8) 10^3/uL 0.49 Absolute Eosinophils (0.0-0.7) 10^3/uL 0.10 Absolute Basophils (0.0-0.2) 10^3/uL 0.02 Sodium (136-145) mmol/L 130 L Potassium (3.5-5.1) mmol/L 4.2 Chloride (98-107) mmol/L 95 L Carbon Dioxide (21.0-32.0) mmol/L 28.6 Anion Gap (3-11) mmol/L 6.4 BUN (7-18) mg/dL 13 Creatinine (0.55-1.02) mg/dL 1.0 Est GFR (CKD-EPI 2020) (mL/min/1.73m2) 61.75 Glucose (74-106) mg/dL 105 Calcium (8.5-10.1) mg/dL 9.1 Magnesium (1.8-2.4) mg/dL 1.7 L Total Bilirubin (0.2-1.0) mg/dL 0.38 AST (15-37) U/L 14 L ALT (14-59) U/L 23 Alkaline Phosphatase (46-116) U/L 52 Troponin I (< or =60) ng/L < 50 Total Protein (6.4-8.2) g/dL 7.5 Albumin (3.4-5.0) g/dL 4.0 Lipase (16-77) U/L 31 Urine Color (Yellow) Yellow Urine Clarity (Clear) Clear Urine pH (5-8) 7.5 Ur Specific [place] (1.005-1.025) 1.015 Urine Protein (Neg-Trace) mg/dL Negative Urine Ketones (Negative) mg/dL Negative Urine Blood (Negative) Negative Urine Nitrite (Negative) Negative Urine Bilirubin (Negative) Negative Urine Urobilinogen (Up to 0.2) mg/dL 0.2 Ur Leukocyte Esterase (Negative) Negative Urine Glucose (Negative) mg/dL Negative ABO/Rh A Positive Antibody Screen NEGATIVE Quality:SDOH Health Related Social Needs: No Data to Display [facility] [place] All Active Problems (Updated 03/16/24 @ 15:17 by Vlad Samaniego MD) Abdominal pain (Acute) Back pain (Acute) Hypertension (Chronic) Chronic hyponatremia (Acute) Headache (Acute) Bipolar I disorder (Chronic) 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) Diverticulosis of colon (Chronic) Glaucoma (Chronic) Medical History TMJ (temporomandibular joint disorder) Diverticulitis of sigmoid colon Multiple episodes, seeing [facility] Diabetes mellitus Surgical History S/P cholecystectomy S/P BSO (bilateral salpingo-oophorectomy) (07/03/15) Status post foot surgery History of total vaginal hysterectomy (TVH) (07/03/15) With cystoscopy and rectocele repair History of esophagogastroduodenoscopy History of bilateral ligation of fallopian tubes Family History Mother Stroke Lung cancer Hypertension Father Heart disease Hyperlipidemia Hypertension Brother Heart disease DOUBLE BYPASS AGE 48 (NON SMOKER) Hyperlipidemia Son Depression Daughter Depression Maternal Grandfather Lung cancer Maternal Grandmother Heart disease Myocardial infarction Paternal Grandfather No problems noted. Paternal Grandmother Diabetes Social History Smoking/Tobacco Use Status: Former Tobacco Use Quit Date: 09/05/77 Smoking risk assessment performed?: Yes Alcohol Intake: never Drug use: Never Substance use type: does not use Housing: house Do you feel safe at home: Yes Do you feel safe in your relationship?: Yes
== END 2024-03-16 15:40 | disposition home or self-care (01) ==
PROVIDERS: Emergency Provider Student in an Organized Health Care Education/Training Program; PCP Nurse Practitioner Family
DX: R10.9 Unspecified abdominal pain (principal); M54.6 Pain in thoracic spine; M54.50 Low back pain, unspecified; E11.9 Type 2 diabetes mellitus without complications; I10 Essential (primary) hypertension; F31.9 Bipolar disorder, unspecified; E78.5 Hyperlipidemia, unspecified; Z90.49 Acquired absence of other specified parts of digestive tract; Z90.710 Acquired absence of both cervix and uterus
CPT/HCPCS: 80053; 83690; 86850; 86900; 86901; 93005; 96374; 99284; 81003; 83735; 84484; 85025; 93010; 99283; J1170

== ENCOUNTER 2024-03-27 01:30 | Outpatient (CLI) | payer OTHER, SELFPAY ==
[2024-03-27 12:51] LABS: Anion Gap 6.7 mmol/L (3-11); BUN 17 mg/dL (7-18); CO2 31.3 mmol/L (21.0-32.0); CREATININE 0.9 mg/dL (0.55-1.02); Calcium 9.9 mg/dL (8.5-10.1); Calculated LDL 130 mg/dL (<100); Chloride 98 mmol/L (98-107); Cholesterol 230 mg/dL (<200); Estimated GFR 70.07 (mL/min/1.73m2); Glucose 104 mg/dL (74-106); HDL Cholesterol 65 mg/dL (40-60); Sodium 136 mmol/L (136-145); TSH (W/Ref FT4) 2.04 uIU/mL (0.36-3.74); Triglyceride 176 mg/dL (<150)
[2024-03-27 12:55] LABS: Hemoglobin A1C 5.6 % (<5.7)
== END 2024-03-27 01:31 | disposition home or self-care (01) ==
LOC: LBO 01:30
PROVIDERS: PCP Nurse Practitioner Family; Visit Provider Nurse Practitioner Family
DX: Z00.00 Encounter for general adult medical examination without abnormal findings (principal); I10 Essential (primary) hypertension; E83.42 Hypomagnesemia
CPT/HCPCS: 36415; 80048; 80061; 83036; 83735; 84443

== ENCOUNTER 2024-05-28 15:28 | Emergency (ER) | payer OTHER, MEDICAID, SELFPAY ==
[2024-05-28 15:31] VITALS: BP 169/91; PULSE 94; RESP 16; TEMP 36.8; O2SAT 98
--- NOTE | 2024-05-28 15:42 | ED.GENADUL_ITS ---
Discharge Plan Discharge Details Chief Complaint: Fall/Non TraumaCriteria Primary Care Provider: Cathie Strange ED Provider: George Seay Home Meds and New Rx's Prescriptions: No Action trazodone 100 mg tablet 200 mg PO QHS lisinopril 40 mg tablet 40 mg PO DAILY Qty: 90 3RF lamotrigine 200 mg tablet 200 mg PO QHS lamotrigine 100 mg tablet 100 mg PO QAM Rexulti 2 mg tablet 2 mg PO DAILY simvastatin 20 mg tablet 20 mg PO DAILY Qty: 90 3RF Patient Comments: pt thinks she is now on 40 mg magnesium hydroxide [Estevez Milk of Magnesia] 400 mg/5 mL suspension 5 ml PO DAILY PRN diclofenac sodium [Voltaren Arthritis Pain] 1 % gel 2 g topical QID PRN (Reason: joint pain) Qty: 100 1RF Rx Instructions: apply to single elbow, wrist or hand; for hand includes palm/fingers/back of hand esomeprazole magnesium [Nexium] 40 mg capsule,delayed release(DR/EC) 40 mg PO DAILY cyclobenzaprine 5 mg tablet 5 mg PO TID PRN (Reason: muscle spasm) Qty: 60 0RF rizatriptan 10 mg tablet,disintegrating See Rx Instructions PO .COMPLEX Qty: 9 2RF Rx Instructions: take 1 tab at onset of headache; if no relief may repeat 1 tab after at least 2 hrs; max = 3 tabs/24 hr PO ondansetron HCl 4 mg tablet 4 mg PO Q8H PRN (Reason: nausea and vomiting) Qty: 20 0RF narstmximutw-vucr-vzxtz acid 18-400 mg-mcg Tablet 1 tab PO DAILY sertraline 100 mg tablet 100 mg PO DAILY HPI General Date/Time Provider Initiated Documentation: 05/28/24 15:29 . HPI Narrative: [ ] year-old [ ] presents to ED today by [ ] with a chief complaint of [ ] with onset [ ]. Quality described as [ ], [ ] radiation to [ ]. Severity is described as [ ]/10. Palliating factors include [ ]. Provoking factors include [ ]. Events leading up to the incident/Associated Symptoms: [ ]. Patient [ ] anticoagulated. Related Data Home Medications ?Medication ?Instructions ?Recorded ?Confirmed multivitamin-ferrous 1 tab PO DAILY 02/10/22 05/28/24 fumarate-folic acid 18 mg-400 mcg tablet trazodone 100 mg tablet 200 mg PO QHS 04/18/23 05/28/24 sertraline 100 mg tablet 100 mg PO DAILY 09/30/23 05/28/24 diclofenac sodium 1 % topical gel 2 g topical QID PRN joint pain 10/04/23 05/28/24 (Voltaren Arthritis Pain) #100 grams lamotrigine 100 mg tablet 100 mg PO QAM 10/21/23 05/28/24 lamotrigine 200 mg tablet 200 mg PO QHS 10/21/23 05/28/24 lisinopril 40 mg tablet 40 mg PO DAILY #90 tabs 10/21/23 05/28/24 esomeprazole magnesium 40 mg 40 mg PO DAILY 12/30/23 05/28/24 capsule,delayed release (Nexium) brexpiprazole 2 mg tablet (Rexulti) 2 mg PO DAILY 02/15/24 05/28/24 simvastatin 20 mg tablet 20 mg PO DAILY #90 tabs 02/15/24 05/28/24 cyclobenzaprine 5 mg tablet 5 mg PO TID PRN muscle spasm #60 03/23/24 05/28/24 tabs magnesium hydroxide 400 mg/5 mL 5 ml PO DAILY PRN 03/28/24 05/28/24 oral suspension (Estevez Milk of Extricom) rizatriptan 10 mg disintegrating See Rx Instructions PO .COMPLEX #9 05/23/24 05/28/24 tablet tabs ondansetron HCl 4 mg tablet 4 mg PO Q8H PRN nausea and 05/24/24 05/28/24 vomiting #20 tabs Previous Rx's ?Medication ?Instructions ?Recorded diclofenac sodium 1 % topical gel 2 g topical QID PRN joint pain 10/04/23 (Voltaren Arthritis Pain) #100 grams lisinopril 40 mg tablet 40 mg PO DAILY #90 tabs 10/21/23 simvastatin 20 mg tablet 20 mg PO DAILY #90 tabs 02/15/24 cyclobenzaprine 5 mg tablet 5 mg PO TID PRN muscle spasm #60 03/23/24 tabs rizatriptan 10 mg disintegrating See Rx Instructions PO .COMPLEX #9 05/23/24 tablet tabs ondansetron HCl 4 mg tablet 4 mg PO Q8H PRN nausea and 05/24/24 vomiting #20 tabs Allergies Allergy/AdvReac Type Severity Reaction Status Date / Time latex AdvReac Severe Skin Rash Verified 05/28/24 15:33 amoxicillin (From Augmentin) AdvReac Agitation Unverified 05/28/24 15:33 azithromycin (From Zithromax) AdvReac headache, Verified 05/28/24 15:33 hearing loss,double vision, DAVILA ciprofloxacin (From Cipro) AdvReac Dizziness/L Verified 05/28/24 15:33 ightheade clavulanic acid (From AdvReac Agitation Unverified 05/28/24 15:33 Augmentin) codeine AdvReac GI upset Verified 05/28/24 15:33 doxycycline AdvReac Other (See Unverified 05/28/24 15:33 Comment) metronidazole (From Flagyl) AdvReac Agitation Unverified 05/28/24 15:33 Penicillins AdvReac Other (See Unverified 05/28/24 15:33 Comment) Sulfa (Sulfonamide AdvReac anxious Verified 05/28/24 15:33 Antibiotics) General Stated Complaint: Fall/Non TraumaCriteria MARIAM: 3 Review of Systems All systems reviewed & are unremarkable except as noted in HPI and below Exam Narrative Exam Narrative: GENERAL APPEARANCE: Well-nourished, non-toxic, awake and alert, atraumatic, no acute distress. SKIN: Warm, pink, dry, intact, without rashes/lesions/ulcerations. HEAD: Normocephalic, atraumatic, normal hair distribution for gender/age. EYES: Normal conjunctiva, no exudates on lids/lashes. ENT: Nares patent, no circumoral cyanosis, no facial swelling NECK: Supple, trachea midline, painless cervical ROM. LUNGS/CHEST: Lungs CTA bilaterally, non-labored respirations, normal A/P diameter, symmetrical expansion, no chest wall deformity HEART (CV/PV): Regular rate and rhythm without murmur, no peripheral edema, no JVD. ABDOMEN: Soft, non-distended, no guarding. MSK: Normal ROM, no swelling/deformity to bilateral UEs or LEs, moving all extremities without weakness, no cyanosis, spine midline without tenderness, normal curvature. NEURO: Mental Status AAOx4 - alert to person, place, time, events No facial droop, no forehead involvement. Motor: No focal weakness - strength 5/5 in bilateral UEs and LEs, proximal and distal, symmetric. Sensory: sensation intact to light touch globally. Gait normal: patient ambulated without ataxia into ED room. PSYCH: euthymic, cooperative, pleasant, appropriate speech Course Vital Signs Vital signs: Vital Signs Temperature 36.8 C 05/28/24 15:31 Pulse 94 H 05/28/24 15:31 Respiratory Rate 16 05/28/24 15:31 Blood Pressure 169/91 H 05/28/24 15:31 Pulse Oximetry 98 05/28/24 15:31 Temperature 36.8 C 05/28/24 15:31 Pulse 94 H 05/28/24 15:31 Respiratory Rate 16 05/28/24 15:31 Respiratory Effort Normal 05/28/24 15:33 Blood Pressure 169/91 H 05/28/24 15:31 Pulse Oximetry 98 05/28/24 15:31 Pain Level 7 05/28/24 15:31 Medical Decision Making This dictation utilizes [id number] dictation software and may contain unedited grammatical errors. [ ]. Patients' medical history: [ ]. Family and social history: [ ]. Pertinent exam findings / vital signs include [ ]. Differential / pathologies of concern include [ ]. Diagnostic studies of: -[ ]. Interventions of: -[ ]. ED Course/Assessment/Plan: [ ]. Findings not consistent with [ ]. Disposition of [ ]. Patient verbalized understanding of the plan and return to ED criteria and engaged in shared decision making. Medical Records Medical records reviewed: Yes I reviewed the patient's medical records. Quality:[facility] Health Related Social Needs: No Data to Display [facility] All Active Problems (Updated 04/16/24 @ 00:08 by PAM LOMAS) Bipolar I disorder (Chronic) [facility] Psychiatry Diverticular stricture (Chronic) Followed by [facility] Colon stricture (Chronic) Followed by [facility] Cramer's esophagus (Chronic) On 2009 EGD, not on 2012 EGD, on 2023 EGD Gastroesophageal reflux disease with esophagitis (Chronic) Diverticulosis of colon (Chronic) Chronic diarrhea (Chronic) Hypertension (Chronic) Hyperlipidemia (Chronic) Hiatal hernia (Chronic) Migraine (Chronic) 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) Glaucoma (Chronic) Allergic rhinitis (Chronic) Medical History TMJ (temporomandibular joint disorder) Diverticulitis of sigmoid colon Multiple episodes, seeing [facility] Diabetes mellitus Surgical History S/P cholecystectomy S/P BSO (bilateral salpingo-oophorectomy) (07/03/15) Status post foot surgery History of total vaginal hysterectomy (TVH) (07/03/15) With cystoscopy and rectocele repair History of esophagogastroduodenoscopy History of bilateral ligation of fallopian tubes Family History Mother Stroke Lung cancer Hypertension Father Heart disease Hyperlipidemia Hypertension Brother Heart disease DOUBLE BYPASS AGE 48 (NON SMOKER) Hyperlipidemia Son Depression Daughter Depression Maternal Grandfather Lung cancer Maternal Grandmother Heart disease Myocardial infarction Paternal Grandfather No problems noted. Paternal Grandmother Diabetes Social History Smoking/Tobacco Use Status: Former Tobacco Use Quit Date: 09/05/77 Smoking risk assessment performed?: Yes Alcohol Intake: never Drug use: Never Substance use type: does not use Housing: house Do you feel safe at home: Yes Do you feel safe in your relationship?: Yes
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
[2024-05-28] MEDS: Methocarbamol 500 MG TAB 1000 MG PO (16:35)
[2024-05-28] MEDS: Acetaminophen 500 MG TAB 1000 MG PO (16:35)
--- NOTE | 2024-05-28 16:36 | DI.CT_ITS ---
Exam(s) CT HEAD CERVICAL SPINE WO EXAM: CT HEAD CERVICAL SPINE WO CLINICAL HISTORY: fall. TECHNIQUE: Imaging Protocol: Axial computed tomography images with coronal and sagittal reformatted images were created and reviewed COMPARISON: CT CT HEAD WO from 03/10/2024 FINDINGS: BRAIN: There are no skull fractures nor fluid in the visualized paranasal sinuses. There is no evidence of intracranial hemorrhage, mass effect, or shift of midline structures. There are no extra-axial fluid collections. The ventricles are not enlarged or shifted and there is no blo od within the ventricular system nor within the basal cisterns. CERVICAL SPINE: There is abnormal straightening and mild reversal of the normal cervical curvature. There is no evidence of fracture nor listhesis. No significant prevertebral soft tissue swelling. There is chronic disc space narrowing at all levels in the cervical spine with the exception of C2-3 which exhibits normal height. There is some mild facet arthropathy at upper levels. No facet joint malalignment. No significant osseous lesions evident. IMPRESSION: No acute intracranial findings on this noninfused CT scan of the brain. No evidence of cervical spine fracture, malalignment, nor acute compromise of the cervical spinal can al. Multilevel chronic degenerative disc disease and some facet arthropathy evident. Report called by myself to ER physician 05/28/2024 at 4:42 p.m. RADIATION DOSE DELIVERED: 1,177.82mGy.cm Total DLP DATA REPOSITORY: All CT scans at this facility are submitted to the National Radiology Data Registry (NRDR) Dose Index Registry (DIR) with the [employer] ([employer]). RADIATION OPTIMIZATION: All CT scans at this facility use at least one of these dose optimization te chniques: automated exposure control; mA and/or kV adjustment per patient size (includes targeted exa ms where dose is matched to clinical indication); or iterative reconstruction.
== END 2024-05-28 16:58 | disposition home or self-care (01) ==
LOC: ER 16:57
PROVIDERS: Emergency Provider Emergency Medicine; PCP Nurse Practitioner Family
DX: R51.9 Headache, unspecified (principal); M54.50 Low back pain, unspecified; W19.XXXA Unspecified fall, initial encounter; Z91.81 History of falling
CPT/HCPCS: 99284; 70450; 72125; 99283

== ENCOUNTER 2024-05-30 14:58 | Inpatient (IN) | payer OTHER, MEDICAID, SELFPAY ==
[2024-05-30] VITALS (179 sets, daily range): BP systolic 150–214; BP diastolic 89–114; PULSE 83–98; RESP 14–32; TEMP 36.9–37.1; O2SAT 94–97
--- NOTE | 2024-05-30 15:00 | RT.EKG_ITS ---
APPROVED REPORT Exam: Resting ECG Reason for Exam: [facility] Patient Location: E HR:89 bpm ECG Measurements Heart Rate 89 AXIS ME 159 P 50 QRSd 92 QRS 0 QT 388 T 39 QTc 473 Conclusion Sinus rhythm...normal P axis, V-rate 60- 99 Narrow complex normal sinus rhythm at a rate of 89. Normal axis. Intervals within normal limits. T wave flattening V2 and V3. Appears similar to prior dated earlier this year. No acute injury mykel butterfield.
--- NOTE | 2024-05-30 15:09 | ED.GENADUL_ITS ---
Discharge Plan Discharge Details Chief Complaint: AMS/LOC Primary Care Provider: Cathie Strange ED Provider: Dennis Willis [place] Meds and New Rx's Prescriptions: No Action trazodone 100 mg tablet 200 mg PO QHS lisinopril 40 mg tablet 40 mg PO DAILY Qty: 90 3RF lamotrigine 200 mg tablet 200 mg PO QHS lamotrigine 100 mg tablet 100 mg PO QAM Rexulti 2 mg tablet 2 mg PO DAILY simvastatin 20 mg tablet 20 mg PO DAILY Qty: 90 3RF Patient Comments: pt thinks she is now on 40 mg magnesium hydroxide [Estevez Milk of Magnesia] 400 mg/5 mL suspension 5 ml PO DAILY PRN diclofenac sodium [Voltaren Arthritis Pain] 1 % gel 2 g topical QID PRN (Reason: joint pain) Qty: 100 1RF Rx Instructions: apply to single elbow, wrist or hand; for hand includes palm/fingers/back of hand esomeprazole magnesium [Nexium] 40 mg capsule,delayed release(DR/EC) 40 mg PO DAILY rizatriptan 10 mg tablet,disintegrating See Rx Instructions PO .COMPLEX Qty: 9 2RF Rx Instructions: take 1 tab at onset of headache; if no relief may repeat 1 tab after at least 2 hrs; max = 3 tabs/24 hr PO ondansetron HCl 4 mg tablet 4 mg PO Q8H PRN (Reason: nausea and vomiting) Qty: 20 0RF cyclobenzaprine 5 mg tablet 5 mg PO TID PRN (Reason: muscle spasm) Qty: 30 0RF gynrhkrdsxck-ntam-ximkj acid 18-400 mg-mcg Tablet 1 tab PO DAILY sertraline 100 mg tablet 100 mg PO DAILY HPI General Date/Time Provider Initiated Documentation: 05/30/24 15:06 . HPI Narrative: MDM This is a hypertensive altered normothermic and not tachycardic 69-year-old female with acute encephalopathy concerning for multiple etiologies. Patient did have a fall so we will obtain CT head to ensure she does not have intracranial hemorrhage. No pain or proportion to suggest necrotizing soft tissue infection. Patient is not tachycardic and has no history of cocaine use so my suspicion for sympathomimetic toxidrome is low. Patient is not flashed nor febrile so doubt anticholinergic toxidrome. Will obtain salicylates acetaminophen and ethanol levels. CVA certainly a possibility and will obtain neurological consultation following dry CT scan. Patient is now pronator drift or any facial asymmetry but she does have aphasia. Will defer vessel imaging initially as patient's last known well was greater than 48 hours ago. No chest pain to suggest aortic dissection. Not coughing not hypoxic so my suspicion is low for COVID. Will obtain urinalysis and a urine drug screen. Patient has no history of cirrhosis and no asterixis so my suspicion is low for hyperammonemia. No recent generator exposure to suggest carbon monoxide toxicity. Soft nontender abdomen so not suspicious for any intra-abdominal infection. No tonic-clonic activity so my suspicion is low for seizures I do not feel that the patient requires an EEG. She has no nuchal rigidity to suggest meningitis so do not feel that she requires a lumbar puncture. No tearing quality to suggest aortic dissection. Nonischemic ECG so my suspicion is low for ACS however will obtain a troponin to assess for myocardial injury which could cause decreased perfusion and acute encephalopathy. 4:24 PM Negative salicylates. Reassuring TSH. CT head read as no acute process. Negative acetaminophen level. Negative ethanol level. No hyperammonemia. Basic metabolic panel with mild hyperglycemia but no anion gap normal bicarbonate?test not consistent with DKA. No acute kidney injury. CBC with mild thrombocytopenia more pronounced compared to prior. No anemia. No leukocytosis. 4:45 PM Initial troponin less than 99th percentile. Repeat troponin processing. 4:51 PM Initial troponin was from initial draw at time of arrival. Repeat troponin hour later was reassuring with a delta not consistent with acute injury pattern. 5 PM Urinalysis nitrite negative not consistent with UTI. No hematuria. Will sign patient out to Dr. Ordoñez pending teleneuro consultation. 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 Normal axis. Intervals within normal limits. T wave flattening V2 and V3. Appears similar to prior dated earlier this year. No acute injury pattern. ]Medications: N/A Social determinants of health affecting disposition: N/A Management discussed with: Emergency medicine colleague Treatment/interventions considered: N/A Response to therapies provided: N/A HPI This is a 69-year-old female with history of bipolar disorder hypertension hyperlipidemia arrived to the emergency department via EMS in the setting of acute encephalopathy. Patient is unable to provide history. Patient reports that it is her Tourette's. I spoke with her care director rn Shyanne who called the patient by phone today and reported that she could not speak. Her last known well was 9 AM 2 days ago. She did not show for an appointment. She been off of benzodiazepines and muscle relaxers reportedly. She reportedly has taken some falls recently. She fell several days ago seen at the emergency department at which point she was not altered. Exam General: Well-appearing in no acute distress speaking in complete sentences. Head: Normocephalic, atraumatic. Eye:[Pupils equal, round reactive to light.] Extraocular eye movements intact. No conjunctival injection. No scleral icterus. Ear, nose, mouth, throat: Grossly normal inspection. Normal voice, handling secretions normally. Neck: Trachea midline. Cardiovascular: Well-perfused distal extremities. Regular rate and rhythm Respiratory: Nonlabored respiration. Clear lungs bilaterally Gastrointestinal: Nondistended abdomen. Soft nontender Musculoskeletal: No edema. Moving all 4 extremities spontaneously. Skin: Normal for age and race, grossly normal temperature and turgor. No acute rash. Neurologic: Alert does not participate in history gathering. No pronator drift. Unable to assess for truncal ataxia nor dysdiadochokinesia. No facial asymmetry. Patient does have expressive aphasia. No dysarthria. GCS 14: E4, V4, M6 Related Data Home Medications ?Medication ?Instructions ?Recorded ?Confirmed multivitamin-ferrous 1 tab PO DAILY 02/10/22 05/29/24 fumarate-folic acid 18 mg-400 mcg tablet trazodone 100 mg tablet 200 mg PO QHS 04/18/23 05/29/24 sertraline 100 mg tablet 100 mg PO DAILY 09/30/23 05/29/24 diclofenac sodium 1 % topical gel 2 g topical QID PRN joint pain 10/04/23 05/29/24 (Voltaren Arthritis Pain) #100 grams lamotrigine 100 mg tablet 100 mg PO QAM 10/21/23 05/29/24 lamotrigine 200 mg tablet 200 mg PO QHS 10/21/23 05/29/24 lisinopril 40 mg tablet 40 mg PO DAILY #90 tabs 10/21/23 05/29/24 esomeprazole magnesium 40 mg 40 mg PO DAILY 12/30/23 05/29/24 capsule,delayed release (Nexium) brexpiprazole 2 mg tablet (Rexulti) 2 mg PO DAILY 02/15/24 05/29/24 simvastatin 20 mg tablet 20 mg PO DAILY #90 tabs 02/15/24 05/29/24 magnesium hydroxide 400 mg/5 mL 5 ml PO DAILY PRN 03/28/24 05/29/24 oral suspension (Estevez Milk of Sidewalk) rizatriptan 10 mg disintegrating See Rx Instructions PO .COMPLEX #9 05/23/24 05/29/24 tablet tabs ondansetron HCl 4 mg tablet 4 mg PO Q8H PRN nausea and 05/24/24 05/29/24 vomiting #20 tabs cyclobenzaprine 5 mg tablet 5 mg PO TID PRN muscle spasm #30 05/29/24 tabs Previous Rx's ?Medication ?Instructions ?Recorded diclofenac sodium 1 % topical gel 2 g topical QID PRN joint pain 10/04/23 (Voltaren Arthritis Pain) #100 grams lisinopril 40 mg tablet 40 mg PO DAILY #90 tabs 10/21/23 simvastatin 20 mg tablet 20 mg PO DAILY #90 tabs 02/15/24 rizatriptan 10 mg disintegrating See Rx Instructions PO .COMPLEX #9 05/23/24 tablet tabs ondansetron HCl 4 mg tablet 4 mg PO Q8H PRN nausea and 05/24/24 vomiting #20 tabs cyclobenzaprine 5 mg tablet 5 mg PO TID PRN muscle spasm #30 05/29/24 tabs Allergies Allergy/AdvReac Type Severity Reaction Status Date / Time latex AdvReac Severe Skin Rash Verified 05/28/24 15:33 amoxicillin (From Augmentin) AdvReac Agitation Unverified 05/28/24 15:33 azithromycin (From Zithromax) AdvReac headache, Verified 05/28/24 15:33 hearing loss,double vision, DAVILA ciprofloxacin (From Cipro) AdvReac Dizziness/L Verified 05/28/24 15:33 ightheade clavulanic acid (From AdvReac Agitation Unverified 05/28/24 15:33 Augmentin) codeine AdvReac GI upset Verified 05/28/24 15:33 doxycycline AdvReac Other (See Unverified 05/28/24 15:33 Comment) metronidazole (From Flagyl) AdvReac Agitation Unverified 05/28/24 15:33 Penicillins AdvReac Other (See Unverified 05/28/24 15:33 Comment) Sulfa (Sulfonamide AdvReac anxious Verified 05/28/24 15:33 Antibiotics) General MARIAM: 3 Medical Decision Making Quality:SDOH Health Related Social Needs: No Data to Display [facility] All Active Problems (Updated 05/28/24 @ 16:45 by Ab Haynes MD) Fall (Acute) Bipolar I disorder (Chronic) [facility] Psychiatry Diverticular stricture (Chronic) Followed by [facility] Colon stricture (Chronic) Followed by 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 Diabetes mellitus Surgical History S/P cholecystectomy S/P BSO (bilateral salpingo-oophorectomy) (07/03/15) Status post foot surgery History of total vaginal hysterectomy (TVH) (07/03/15) With cystoscopy and rectocele repair History of esophagogastroduodenoscopy History of bilateral ligation of fallopian tubes Family History Mother Stroke Lung cancer Hypertension Father Heart disease Hyperlipidemia Hypertension Brother Heart disease DOUBLE BYPASS AGE 48 (NON SMOKER) Hyperlipidemia Son Depression Daughter Depression Maternal Grandfather Lung cancer Maternal Grandmother Heart disease Myocardial infarction Paternal Grandfather No problems noted. Paternal Grandmother Diabetes Social History Smoking/Tobacco Use Status: Former Tobacco Use Quit Date: 09/05/77 Smoking risk assessment performed?: Yes Alcohol Intake: never Drug use: Never Substance use type: does not use Housing: house Do you feel safe at home: Yes Do you feel safe in your relationship?: Yes
[2024-05-30 15:50] LABS: Abs Immature Grans 0.25 10^3/uL (0.0-0.06); HCT 39.5 % (36.0-46.0); HGB 13.4 g/dL (11.2-15.7); MCH 31.9 pg (27.0-33.0); MCHC 33.9 % (32.0-36.0); MCV 94 fL (80-95); MPV 9.8 fL (8.0-11.0); Platelet Count 111 10^3/uL (130-400); RDW 11.9 % (11.7-14.6); RDW-SD 41.2 fL; WBC 4.76 10^3/uL (4.4-10.8)
--- NOTE | 2024-05-30 15:54 | DI.CT_ITS ---
Exam(s) CT HEAD WO EXAM: CT HEAD WO CLINICAL HISTORY: fall. TECHNIQUE: Imaging Protocol: Axial computed tomography images with coronal and sagittal reformatted images were created and reviewed COMPARISON: CT CT HEAD CERVICAL SPINE WO from 05/28/2024 FINDINGS: There are no skull fractures. There is no fluid in the visualized paranasal sinuses. There is no evidence of intracranial hemorrhage, mass effect, or shift of midline structures. There are no extra-axial fluid collections. The ventricles are not enlarged or shifted and there is no blo od within the ventricular system nor within the basal cisterns. There is mild bilateral periventricular hypodensity consistent with chronic small vessel disease. Sy mmetrical calcifications again noted in both basal ganglia. IMPRESSION: No acute intracranial findings on this noninfused CT scan of the brain. No significant change compared to CT scan of 2 days ago (05/28/2024). Called by myself to ER 05/30/2024 at 4:02 p.m. RADIATION DOSE DELIVERED: 804.94mGy.cm Total DLP DATA REPOSITORY: All CT scans at this facility are submitted to the National Radiology Data Registry (NRDR) Dose Index Registry (DIR) with the [employer] (ACR). RADIATION OPTIMIZATION: All CT scans at this facility use at least one of these dose optimization te chniques: automated exposure control; mA and/or kV adjustment per patient size (includes targeted exa ms where dose is matched to clinical indication); or iterative reconstruction.
[2024-05-30 16:04] LABS: Anion Gap 9.5 mmol/L (3-11); BUN 8 mg/dL (7-18); CO2 25.5 mmol/L (21.0-32.0); CREATININE 0.8 mg/dL (0.55-1.02); Chloride 97 mmol/L (98-107); Estimated GFR 80.71 (mL/min/1.73m2); Glucose 116 mg/dL (74-106); Sodium 132 mmol/L (136-145)
[2024-05-30 16:05] LABS: Ammonia < 10 umol/L (11-32); ETHANOL BLOOD < 3.0 mg/dL (<10)
[2024-05-30 16:07] LABS: Salicylate < 2.8 mg/dL (<2.8)
[2024-05-30 16:13] LABS: TSH (W/Ref FT4) 1.72 uIU/mL (0.36-3.74)
[2024-05-30 16:14] LABS: Absolute Neutrophil Count 3.09 10^3/uL (1.2-6.7)
[2024-05-30 16:15] LABS: Absolute Basophil Count 0.05 10^3/uL (0.0-0.2); Absolute Monocyte Count 0.33 10^3/uL (0.1-0.8); Diff Comment Manual Differential; Metamyelocytes % 2; Myelocytes % 2; RBC Morphology Normal
--- NOTE | 2024-05-30 16:15 | DI.RAD_ITS ---
Exam(s) XR PORTABLE CHEST AP EXAM: XR PORTABLE CHEST AP CLINICAL HISTORY: Altered. TECHNIQUE: 2D digital imaging was performed. COMPARISON: CR,XR XR CHEST 2V PA LATERAL from 03/10/2024 FINDINGS: Single AP portable view. Heart size is upper normal. The mediastinum is not widened. Lungs are clear. No infiltrates nor obvious pleural effusions. IMPRESSION: No acute pulmonary findings on this single AP portable view of the chest. DATA REPOSITORY: RADIATION DOSE DELIVERED:
[2024-05-30 16:17] LABS: Acetaminophen < 2 ug/mL (10-30)
[2024-05-30 16:38] LABS: Troponin I 19 ng/L (<or=51)
[2024-05-30 16:46] LABS: Troponin I 24 ng/L (<or=51)
[2024-05-30 16:48] LABS: Bilirubin Negative (Negative); Blood Negative (Negative); Clarity Clear (Clear); Glucose Negative (Negative); Ketones Negative (Negative); Leukocyte Esterase Negative (Negative); Nitrite Negative (Negative); Specific Gravity 1.015 (1.005-1.025); Urobilinogen 0.2 mg/dL (Up to 0.2)
[2024-05-30 16:57] LABS: *AMPHETAMINES SCREEN URINE Negative (Negative); *BARBITURATES SCREEN URINE Negative (Negative); *BENZODIAZEPINES SCREEN URINE Negative (Negative); Cannabinoids THC Negative (Negative); Cocaine Screen,Urine Negative (Negative); METHADONE URINE SCREEN Negative (Negative); OPIATES URINE SCREEN Negative (Negative)
[2024-05-30 17:01] LABS: Tricyclic Antidepressants Negative (Negative)
--- NOTE | 2024-05-30 17:20 | ED.PROG_ITS ---
Date of service: 05/30/24 Time of Service: 17:20 Medical Decision Making Care assumed from outgoing provider. Patient is a 69-year-old female with bipolar disorder that was referred to the emergency department by her mental health care provider. The patient seems to not be at her baseline. She was recently evaluated in the emergency department for fall and had a normal head CT at that time. At this time her workup has been unremarkable including lab work and CT imaging. Final disposition is pending teleneuro evaluation. 1800 Discussed evaluation with teleneurology. Their concern for aphasia versus focal seizure versus polypharmacy. They state that the patient is outside of the window for any thrombolytics. They are recommending aspirin. Admission for EEG, MRI. Will also get a CTA per the recommendations to evaluate for large vessel occlusion 2039 CTA without LVO or significant abnormality. I did discuss with virtual radiologist. I have updated the hospitalist on these findings. And the patient will be admitted to their service for further management. Quality:SDRI Health Related Social Needs: No Data to Display Sign Out Sign Out Data: Sign Out Comment: Altered 69-year-old female bipolar pending telemetry neuroconsult. Reassuring labs. Disposition per neurology. Likely will require hospitalization. Last updated by Dennis Willis MD at 05/30/24 17:02 Discharge Plan Disposition Patient Disposition: Admit to [facility] Condition: Fair Discharge Details Chief Complaint: AMS/LOC Clinical Impression: Aphasia Primary Care Provider: Cathie Strange ED Provider: Ab Haynes Home Meds and New Rx's Prescriptions: No Action trazodone 100 mg tablet 200 mg PO QHS lisinopril 40 mg tablet 40 mg PO DAILY Qty: 90 3RF lamotrigine 200 mg tablet 200 mg PO QHS lamotrigine 100 mg tablet 100 mg PO QAM Rexulti 2 mg tablet 2 mg PO DAILY simvastatin 20 mg tablet 20 mg PO DAILY Qty: 90 3RF Patient Comments: pt thinks she is now on 40 mg magnesium hydroxide [Estevez Milk of Magnesia] 400 mg/5 mL suspension 5 ml PO DAILY PRN diclofenac sodium [Voltaren Arthritis Pain] 1 % gel 2 g topical QID PRN (Reason: joint pain) Qty: 100 1RF Rx Instructions: apply to single elbow, wrist or hand; for hand includes palm/fingers/back of hand esomeprazole magnesium [Nexium] 40 mg capsule,delayed release(DR/EC) 40 mg PO DAILY rizatriptan 10 mg tablet,disintegrating See Rx Instructions PO .COMPLEX Qty: 9 2RF Rx Instructions: take 1 tab at onset of headache; if no relief may repeat 1 tab after at least 2 hrs; max = 3 tabs/24 hr PO ondansetron HCl 4 mg tablet 4 mg PO Q8H PRN (Reason: nausea and vomiting) Qty: 20 0RF cyclobenzaprine 5 mg tablet 5 mg PO TID PRN (Reason: muscle spasm) Qty: 30 0RF corwrmieowqy-mkxw-wwdhv acid 18-400 mg-mcg Tablet 1 tab PO DAILY sertraline 100 mg tablet 100 mg PO DAILY
[2024-05-30] MEDS: Lisinopril 20 MG TAB 40 MG PO (17:29)
[2024-05-30] MEDS: Acetaminophen 500 MG TAB (17:29)
--- NOTE | 2024-05-30 17:45 | DI.CT_ITS ---
Exam(s) CT BRAIN NECK CTA EXAM: CT BRAIN NECK CTA CLINICAL HISTORY: AMS. TECHNIQUE: Imaging Protocol: Axial CT angiography was performed with multi-slice acquisition and mu lti-planar and/or 3D reconstructions. CONTRAST MATERIAL: Intravenous: Omnipaque 350 contrast volume:70 mL COMPARISON: CT CT HEAD WO from 03/10/[address] HEAD CERVICAL SPINE WO from 05/28/[address] HEAD WO from 05/30/2024 FINDINGS: The examination is limited due to patient motion artifact. CT Head W/O and W: Ventricles and Extra axial spaces: Normal in size and morphology for the patient's age. Hemorrhage: None. Cerebral parenchyma: No evidence of an acute territorial infarct. No mass effect. Midline shift: None. Brainstem/Cerebellum: Normal. Calvarium: Normal. Visualized Paranasal sinuses/Mastoids: Clear. Soft Tissues: Unremarkable. Enhancement: Unremarkable. CTA Neck W: Common Carotid: Right: No dissection, occlusion or significant stenosis. Left: No dissection, occlusion or significant stenosis. External Carotid: Right: No occlusion or significant stenosis. Left: No occlusion or significant stenosis. Internal Carotid: Right: No dissection, occlusion or significant stenosis. Left: No dissection, occlusion or significant stenosis. Atherosclerotic calcification at the origin of the left internal carotid artery. No significant stenosis results. Vertebral Artery: Right: No dissection, occlusion or significant stenosis. Left: No dissection, occlusion or significant stenosis. Lung Apices: No acute infiltrate. Bones: Within normal limits for the patient's age. There is straightening of the normal cervical lord osis. Soft Tissues: Normal. Thyroid gland: Unremarkable. CTA Brain W: Internal Carotid Arteries: Mild atherosclerotic calcification is present. No significant stenosis. No evidence of occlusion or aneurysm. Anterior Cerebral Arteries: Right: No aneurysm, occlusion or significant stenosis. Left: No aneurysm, occlusion or significant stenosis. Middle Cerebral Arteries: Right: No aneurysm, occlusion or significant stenosis. Left: No aneurysm, occlusion or significant stenosis. Posterior Cerebral Arteries: Right: No aneurysm, occlusion or significant stenosis. Left: No aneurysm, occlusion or significant stenosis. Vertebral Arteries: Right: No aneurysm, occlusion or significant stenosis. Left: No aneurysm, occlusion or significant stenosis. Basilar Artery: No aneurysm, occlusion or significant stenosis. IMPRESSION: 1. No large vessel occlusion or significant stenosis on the CT angiography of the head. 2. No acute intracranial process. 3. No occlusion or significant stenosis on the CT angiography of the neck. Less than 50 percent narr owing of the proximal left internal carotid artery. RADIATION DOSE DELIVERED: 2,065.27mGy.cm Total DLP DATA REPOSITORY: All CT scans at this facility are submitted to the National Radiology Data Registry (NRDR) Dose Index Registry (DIR) with the [employer] (ACR). RADIATION OPTIMIZATION: All CT scans at this facility use at least one of these dose optimization te chniques: automated exposure control; mA and/or kV adjustment per patient size (includes targeted exa ms where dose is matched to clinical indication); or iterative reconstruction.
[2024-05-30] MEDS: Atorvastatin 40 MG TAB 80 MG PO (18:50)
[2024-05-30] MEDS: Aspirin 325 MG TAB PO (18:50)
[2024-05-30] MEDS: Normal Saline - Diluent 50 ML VIAL IJ (19:07)
[2024-05-30] MEDS: Omnipaque 350 MG/ML 100 ML BTL IJ (19:08)
--- NOTE | 2024-05-30 20:05 | DI.VRAD_ITS ---
Addendum created by Tez Zhao MD on 05/30/2024 8:08:07 PM EDT: THIS REPORT CONTAINS FINDINGS THAT MAY BE CRITICAL TO PATIENT CARE. The findings were verbally communicated via telephone conference with FILIBERTO BOSCH at 8:08 PM EDT on 05/30/2024. The findings were acknowledged and understood. Initial report created on 05/30/2024 8:05:15 PM EDT: PROCEDURE INFORMATION: Exam: CTA Head Without And With Contrast, Arteriography Exam date and time: 05/30/2024 7:04 PM Age: 69 years old Clinical indication: Stroke-like symptoms; Altered mental status/memory loss and drowsines/somnolence and speech disturbance TECHNIQUE: Imaging protocol: Computed tomographic angiography of the head without and with contrast. Exam focused on the arteries. 3D rendering (Not supervised by radiologist): MIP and/or 3D reconstructed images were created by the technologist. Contrast material: 350; Contrast volume: 70 ml; Contrast route: INTRAVENOUS (IV); Other technique: STROKE PROTOCOL was implemented. COMPARISON: CT HEAD WO 05/30/2024 3:48 PM FINDINGS: ANTERIOR CIRCULATION: Right internal carotid artery: Intracranial segment is patent with no significant stenosis or occlusion. No aneurysm. Right middle cerebral artery: No occlusion or significant stenosis. No aneurysm. Right anterior cerebral artery: No occlusion or significant stenosis. No aneurysm. Left internal carotid artery: Intracranial segment is patent with no significant stenosis. No aneurysm. Left middle cerebral artery: No occlusion or significant stenosis. No aneurysm. Left anterior cerebral artery: No occlusion or significant stenosis. No aneurysm. POSTERIOR CIRCULATION: Right vertebral artery: No occlusion or significant stenosis. No aneurysm. Left vertebral artery: No occlusion or significant stenosis. No aneurysm. Basilar artery: No occlusion or significant stenosis. No aneurysm. Right posterior cerebral artery: No occlusion or significant stenosis. No aneurysm. Left posterior cerebral artery: No occlusion or significant stenosis. No aneurysm. HEAD: Brain: Probable underlying microvascular ischemic changes with no acute transcortical infarction or recent intracranial hemorrhage detected. Cerebral ventricles: No midline shift or hydrocephalus. Bones: No acute fracture. Paranasal sinuses: Grossly clear throughout. Mastoid air cells: Grossly clear bilaterally. Soft tissues: Unremarkable. IMPRESSION: 1. No large vessel stenosis or occlusion detected involving the major branches of the anterior or posterior intracranial circulation. 2. Probable underlying microvascular ischemic changes with no acute transcortical infarction or recent intracranial hemorrhage detected. ASSESSMENT: ASPECTS ([place] Stroke Program Early CT Score) is 10. PROCEDURE INFORMATION: Exam: CTA Neck Without And With Contrast Exam date and time: 05/30/2024 7:04 PM Age: 69 years old Clinical indication: Stroke-like symptoms; Altered mental status/memory loss and drowsines/somnolence and speech disturbance TECHNIQUE: Imaging protocol: Computed tomographic angiography of the neck without and with contrast. Exam focused on the cervical segments of the vasculature. 3D rendering (Not supervised by radiologist): MIP and/or 3D reconstructed images were created by the technologist. Contrast material: 350; Contrast volume: 70 ml; Contrast route: INTRAVENOUS (IV); COMPARISON: CT HEAD CERVICAL SPINE WO 05/28/2024 4:26 PM FINDINGS: Right common carotid artery: No stenosis. No dissection or occlusion. Right internal carotid artery: No stenosis of the extracranial segment. No dissection or occlusion. Right external carotid artery: No occlusion or stenosis of the origin. Left common carotid artery: No stenosis. No dissection or occlusion. Left internal carotid artery: Atherosclerotic calcifications are seen at the left carotid bifurcation and involving the origin of the left internal carotid artery with no evidence of 50% or greater stenosis of the extracranial segment. No dissection or occlusion. Left external carotid artery: No occlusion or stenosis of the origin. Right vertebral artery: No stenosis. No dissection or occlusion. Left vertebral artery: No stenosis. No dissection or occlusion. Soft tissues: Normal. No significant soft tissue swelling. Bones/joints: No acute fracture. IMPRESSION: No evidence of 50% or greater stenosis involving the cervical segments of the right or left internal carotid arteries by NASCET criteria. REFERENCES: NASCET CRITERIA. The degree of stenosis in the cervical segment of the internal carotid artery is based on NASCET criteria. Normal is no stenosis. Mild is less than 50% stenosis. Moderate is 50-69% stenosis. Severe is 70% to 99% stenosis. Total occlusion is no detectable patent lumen. Dictated and Authenticated by: Tez Zhao MD. Ordering:[facility] Ivy Cruz MD
--- NOTE | 2024-05-30 21:03 | NUR.NOTE ---
Nursing Note: Assumed care of the pt, the pt was restless and confused, pt unable to follow most directions, slurred and garbled speech noticed, pt has a slight left facial droop. pt was undressed in her clothing, this nurse assisted the pt to sit up and undress, pt was able to sit up but immediately lay down. pt getting oob and confused, pt states I need to go to hospital, i'm dying, scared swallow screen done and passed. po meds given per order. This nurse made provider aware of HTN and if the facial droop was new and increased, provider re-assessed pt. awaiting admit orders, pt friend at bedside, added to hippa
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
[2024-05-30] MEDS: Metoprolol 12.5 MG TAB 25 MG PO (22:58)
--- NOTE | 2024-05-30 23:40 | NUR.NOTE ---
Nursing Note: Pt arrived to floor at this time. Safety and fall prec in place, bed locked in lowest position, call light in reach, bed alarm on. Pt able to stand and pivot from stretcher to bed. Pt keeps stating I need a hospital and reoriented to surroundings. Pt answers does answer orientation questions correctly and able to follow simple commands. Pt getting frustrated when shes unable to answer a question and laughs at herself. Swallows pills fine with water. Scoring a 3 on the NIH scale, will CTM.
--- NOTE | 2024-05-30 23:55 | NUR.NOTE ---
Nursing Note: NIH stroke scale 3 when pt arrived to floor, will CTM. Form placed in pts chart.
[2024-05-31] VITALS (11 sets, daily range): BP systolic 124–192; BP diastolic 67–115; PULSE 63–77; RESP 16–22; TEMP 36.2–37.6; O2SAT 91–98
--- NOTE | 2024-05-31 00:27 | NUR.NOTE ---
Nursing Note: Dr. Tam at bedside to assess pt.
[2024-05-31] MEDS: traZODone 100 MG TAB 200 MG PO ×2 (00:33→20:37)
[2024-05-31] MEDS: lamoTRIgine 100 MG TAB 200 MG PO ×2 (00:33→20:36)
[2024-05-31] MEDS: Heparin 5,000 UNITS/ML VIAL 5000 UNITS SC ×4 (01:07→23:49)
[2024-05-31] MEDS: Metoprolol 25 MG TAB PO (01:51)
[2024-05-31] MEDS: Acetaminophen 325 MG TAB PO ×3 (01:51→20:36)
--- NOTE | 2024-05-31 01:51 | NUR.NOTE ---
Nursing Note: Paged Dr. Tam about elevated BP, Pt given one time dose metoprolol per NOV.
--- NOTE | 2024-05-31 04:00 | NUR.NOTE ---
Nursing Note: Pt more clear at this time. Sentences making sense and pt able to verbalize needs. Pt still with some delayed speech. Follows simple commands.
--- NOTE | 2024-05-31 06:22 | NUR.NOTE ---
Nursing Note: Spoke with Dr. Tam about pts elevated BP again, per MD zambrano to give 0600 metoprolol dose. No other orders at this time.
[2024-05-31] MEDS: Metoprolol 12.5 MG TAB 25 MG PO ×3 (06:30→20:35)
[2024-05-31 07:09] LABS: HCT 38.7 % (36.0-46.0); HGB 13.2 g/dL (11.2-15.7); MCH 32.1 pg (27.0-33.0); MCHC 34.1 % (32.0-36.0); MCV 94 fL (80-95); MPV 9.8 fL (8.0-11.0); Platelet Count 117 10^3/uL (130-400); RBC 4.11 10^6/uL (3.93-5.22); RDW 11.9 % (11.7-14.6); RDW-SD 41.2 fL; WBC 6.45 10^3/uL (4.4-10.8)
[2024-05-31 07:38] LABS: ALT 20 U/L (14-59); AST 23 U/L (15-37); Albumin 3.9 g/dL (3.4-5.0); Alkaline Phosphatase 61 U/L (46-116); Anion Gap 9.8 mmol/L (3-11); BUN 11 mg/dL (7-18); Bilirubin, Total 0.82 mg/dL (0.2-1.0); CO2 23.2 mmol/L (21.0-32.0); CREATININE 0.8 mg/dL (0.55-1.02); Calcium 8.9 mg/dL (8.5-10.1); Chloride 95 mmol/L (98-107); Estimated GFR 80.71 (mL/min/1.73m2); Glucose 116 mg/dL (74-106); Magnesium 1.7 mg/dL (1.8-2.4); Potassium 3.9 mmol/L (3.5-5.1); Sodium 128 mmol/L (136-145); Total Protein 7.7 g/dL (6.4-8.2)
--- NOTE | 2024-05-31 07:38 | W.PC.ACHO ---
Registration Status: Primary Language: Preferred Language: ED Information & Data Chief Complaint AMS/LOC 05/30/24 18:29 Chief Complaint AMS/LOC 05/30/24 15:01 Triage Note patient here via ems that 05/30/24 15:01 was called by MH provider due to AMS. Patient presents with inappropriate responses. keeps stating I' m altered. Says her brain hurts. I'm mentally ill. Medical / Surgical History (Last Reviewed 05/30/24 @ 21:44 by Delbert Tam) TMJ (temporomandibular joint disorder) Diverticulitis of sigmoid colon Diabetes mellitus (Last Reviewed 05/30/24 @ 21:44 by Delbert Tam) S/P cholecystectomy S/P BSO (bilateral salpingo-oophorectomy) (07/03/15) Status post foot surgery History of total vaginal hysterectomy (TVH) (07/03/15) History of esophagogastroduodenoscopy History of bilateral ligation of fallopian tubes Most Recent Vital Signs Temperature 37.0 C 05/31/24 05:02 Temperature Source Temporal Artery Scan 05/31/24 05:02 Pulse 75 05/31/24 05:02 Pulse Rhythm Regular 05/30/24 23:55 Pulse 96 H 05/30/24 17:30 Respiratory Rate 16 05/31/24 05:02 Respiratory Effort Normal 05/30/24 23:55 Respiratory Depth Normal 05/30/24 23:55 Respiratory Pattern Normal 05/30/24 23:55 Blood Pressure 125/81 05/31/24 05:02 Blood Pressure Mean 144 05/30/24 17:30 Blood Pressure Position Sitting 05/30/24 15:01 Pulse Oximetry 95 05/31/24 05:02 Oxygen Delivery Method Room Air 05/31/24 05:02 Oxygen Flow Rate 0 05/31/24 05:02 Pain Level 0 05/31/24 01:17 Allergies latex Adverse Reaction (Severe, Verified 05/28/24 15:33) Skin Rash amoxicillin (From Augmentin) Adverse Reaction (Unverified 05/28/24 15:33) Agitation azithromycin (From Zithromax) Adverse Reaction (Verified 05/28/24 15:33) headache, hearing loss,double vision, DAVILA ciprofloxacin (From Cipro) Adverse Reaction (Verified 05/28/24 15:33) Dizziness/Lightheade Weak, confused, anxiety clavulanic acid (From Augmentin) Adverse Reaction (Unverified 05/28/24 15:33) Agitation codeine Adverse Reaction (Verified 05/28/24 15:33) GI upset doxycycline Adverse Reaction (Unverified 05/28/24 15:33) Other (See Comment) tears up my stomach metronidazole (From Flagyl) Adverse Reaction (Unverified 05/28/24 15:33) Agitation Penicillins Adverse Reaction (Unverified 05/28/24 15:33) Other (See Comment) tears up my stomach Sulfa (Sulfonamide Antibiotics) Adverse Reaction (Verified 05/28/24 15:33) anxious Active Medications Generic Name Dose Route Start Last Admin Trade Name Freq PRN Reason Stop Dose Admin Acetaminophen 325 - 650 mg 05/30/24 23:40 05/31/24 01:51 Acetaminophen 325 Mg Tab PO 650 mg Q4H PRN PRN Administration Lamotrigine 200 mg 05/31/24 00:00 05/31/24 00:33 Lamotrigine 100 Mg Tab PO 200 mg HS AMELIA Administration Metoprolol Tartrate 25 mg 05/31/24 06:00 05/31/24 06:30 Metoprolol 12.5 Mg Tab PO 25 mg Q6H AMELIA Administration Trazodone HCl 200 mg 05/31/24 00:00 05/31/24 00:33 Trazodone 100 Mg Tab PO 200 mg HS AMELIA Administration IV IV Catheter Type [Left Peripheral IV Antecubital] IV Catheter Gauge [Left 20 Antecubital] Diet Orders Category Date Time Status Heart Healthy Eating [DIET] Nutrition 05/31/24 Breakfast Active Diagnostics 05/31/24 05/30/24 05/30/24 Range/Units 06:47 19:15 16:30 WBC 6.45 (4.4-10.8) 10^3/uL RBC 4.11 (3.93-5.22) 10^6/uL Hgb 13.2 (11.2-15.7) g/dL Hct 38.7 (36.0-46.0) % MCV 94 (80-95) fL MCH 32.1 (27.0-33.0) pg MCHC 34.1 (32.0-36.0) % RDW 11.9 (11.7-14.6) % Plt Count 117 L (130-400) 10^3/uL MPV 9.8 (8.0-11.0) fL Immature Gran % Neutrophils % % Lymphocytes % % Monocytes % % Eosinophils % % Basophils % % Metamyelocytes % Myelocytes % Nucleated RBC % (0.0-0.3) % Absolute Neutrophils (1.2-6.7) 10^3/uL Absolute Lymphocytes (1.2-3.4) 10^3/uL Absolute Monocytes (0.1-0.8) 10^3/uL Absolute Eosinophils (0.0-0.7) 10^3/uL Absolute Basophils (0.0-0.2) 10^3/uL RBC Morphology Sodium Pending (136-145) mmol/L Potassium Pending (3.5-5.1) mmol/L Chloride Pending (98-107) mmol/L Carbon Dioxide Pending (21.0-32.0) mmol/L Anion Gap Pending (3-11) mmol/L BUN Pending (7-18) mg/dL Creatinine Pending (0.55-1.02) mg/dL Est GFR (CKD-EPI 2020) Pending (mL/min/1.73m2) Glucose Pending (74-106) mg/dL Calcium Pending (8.5-10.1) mg/dL Magnesium Pending Total Bilirubin Pending AST Pending ALT Pending Alkaline Phosphatase Pending Ammonia (11-32) umol/L Troponin I Cancelled (<or=51) ng/L Total Protein Pending Albumin Pending TSH (0.36-3.74) uIU/mL Urine Color Yellow (Yellow) Urine Clarity Clear (Clear) Urine pH 7.0 (5-8) Ur Specific [place] 1.015 (1.005-1.025) Urine Protein Negative (Neg-Trace) mg/dL Urine Ketones Negative (Negative) mg/dL Urine Blood Negative (Negative) Urine Nitrite Negative (Negative) Urine Bilirubin Negative (Negative) Urine Urobilinogen 0.2 (Up to 0.2) mg/dL Ur Leukocyte Esterase Negative (Negative) Urine Glucose Negative (Negative) mg/dL Salicylates (<2.8) mg/dL Urine Opiates Screen Negative (Negative) Urine Methadone Screen Negative (Negative) Acetaminophen (10-30) ug/mL Ur Barbiturates Screen Negative (Negative) Ur Tricyclics Screen Negative (Negative) Ur Amphetamines Screen Negative (Negative) U Benzodiazepines Scrn Negative (Negative) Urine Cocaine Screen Negative (Negative) Ur THC Screen Negative (Negative) Ethyl Alcohol (<10) mg/dL 05/30/24 05/30/24 Range/Units 16:22 15:40 WBC 4.76 (4.4-10.8) 10^3/uL RBC 4.20 (3.93-5.22) 10^6/uL Hgb 13.4 (11.2-15.7) g/dL Hct 39.5 (36.0-46.0) % MCV 94 (80-95) fL MCH 31.9 (27.0-33.0) pg MCHC 33.9 (32.0-36.0) % RDW 11.9 (11.7-14.6) % Plt Count 111 L (130-400) 10^3/uL MPV 9.8 (8.0-11.0) fL Immature Gran % See Differential Neutrophils % 65.0 % Lymphocytes % 21.0 % Monocytes % 7.0 % Eosinophils % 2.0 % Basophils % 1.0 % Metamyelocytes % 2 Myelocytes % 2 Nucleated RBC % 0.0 (0.0-0.3) % Absolute Neutrophils 3.09 (1.2-6.7) 10^3/uL Absolute Lymphocytes 1.00 L (1.2-3.4) 10^3/uL Absolute Monocytes 0.33 (0.1-0.8) 10^3/uL Absolute Eosinophils 0.10 (0.0-0.7) 10^3/uL Absolute Basophils 0.05 (0.0-0.2) 10^3/uL RBC Morphology Normal Sodium 132 L (136-145) mmol/L Potassium 4.0 (3.5-5.1) mmol/L Chloride 97 L (98-107) mmol/L Carbon Dioxide 25.5 (21.0-32.0) mmol/L Anion Gap 9.5 (3-11) mmol/L BUN 8 (7-18) mg/dL Creatinine 0.8 (0.55-1.02) mg/dL Est GFR (CKD-EPI 2020) 80.71 (mL/min/1.73m2) Glucose 116 H (74-106) mg/dL Calcium 9.0 (8.5-10.1) mg/dL Magnesium Total Bilirubin AST ALT Alkaline Phosphatase Ammonia < 10 L (11-32) umol/L Troponin I 24 19 (<or=51) ng/L Total Protein Albumin TSH 1.72 (0.36-3.74) uIU/mL Urine Color (Yellow) Urine Clarity (Clear) Urine pH (5-8) Ur Specific [place] (1.005-1.025) Urine Protein (Neg-Trace) mg/dL Urine Ketones (Negative) mg/dL Urine Blood (Negative) Urine Nitrite (Negative) Urine Bilirubin (Negative) Urine Urobilinogen (Up to 0.2) mg/dL Ur Leukocyte Esterase (Negative) Urine Glucose (Negative) mg/dL Salicylates < 2.8 (<2.8) mg/dL Urine Opiates Screen (Negative) Urine Methadone Screen (Negative) Acetaminophen < 2 (10-30) ug/mL Ur Barbiturates Screen (Negative) Ur Tricyclics Screen (Negative) Ur Amphetamines Screen (Negative) U Benzodiazepines Scrn (Negative) Urine Cocaine Screen (Negative) Ur THC Screen (Negative) Ethyl Alcohol < 3.0 (<10) mg/dL Intake and Output - 24 Hour Total 05/30/24 14:15 thru 05/31/24 05:06 Output Total 450 Balance -450 Weight 71.214 kg Output: Urine 450 Other: Urine Color Pale Yellow Urine Appearance Clear Urine Odor None Stool Size Large Stool Characteristics Liquid Brown Voiding Methods Bedside Commode Falls Risk Assessment History of Falls Previous History 05/30/24 23:55 Contributing Factors Confusion,Impairments 05/30/24 23:55 Ambulatory Aids Independent 05/30/24 19:00 Tubes/Lines W/no contributing factors 05/30/24 23:55 Gait Evaluation W/any additional score 05/30/24 23:55 Cognition Cognitive impairment 05/30/24 19:00 Fall Total Score 51 05/30/24 23:55 Level of Risk High Risk 05/30/24 23:55 Problems (Last Reviewed 05/30/24 @ 21:44 by Delbert Tam) TIA (transient ischemic attack) (Acute) Aphasia (Acute) Fall (Acute) Bipolar I disorder (Chronic) Hypertension (Chronic) Hyperlipidemia (Chronic) Notes 05/31/24 06:22 (created 05/31/24 07:22) Nursing Notes by Aliza Honeycutt Nursing Note: Spoke with Dr. Tam about pts elevated BP again, per MD okay to give 0600 metoprolol dose. No other orders at this time. Initialized on 05/31/24 07:22 - END OF NOTE 05/31/24 04:00 (created 05/31/24 07:23) Nursing Notes by Aliza Honeycutt Nursing Note: Pt more clear at this time. Sentences making sense and pt able to verbalize needs. Pt still with some delayed speech. Follows simple commands. Initialized on 05/31/24 07:23 - END OF NOTE 05/31/24 01:51 (created 05/31/24 07:26) Nursing Notes by Aliza Honeycutt Nursing Note: Paged Dr. Tam about elevated BP, Pt given one time dose metoprolol per MAR. Initialized on 05/31/24 07:26 - END OF NOTE 05/30/24 23:55 (created 05/31/24 07:17) Nursing Notes by Aliza Honeycutt Nursing Note: NIH stroke scale 3 when pt arrived to floor, will CTM. Form placed in pts chart. Initialized on 05/31/24 07:17 - END OF NOTE 05/30/24 21:03 Nursing Notes by Víctor Johnson Nursing Note: Assumed care of the pt, the pt was restless and confused, pt unable to follow most directions, slurred and garbled speech noticed, pt has a slight left facial droop. pt was undressed in her clothing, this nurse assisted the pt to sit up and undress, pt was able to sit up but immediately lay down. pt getting oob and confused, pt states I need to go to hospital, i'm dying, scared swallow screen done and passed. po meds given per order. This nurse made provider aware of HTN and if the facial droop was new and increased, provider re-assessed pt. awaiting admit orders, pt friend at bedside, added to hippa Initialized on 05/30/24 21:03 - END OF NOTE v v v v v v v v v Sending and/or Receiving Nurses: Please use comment section below to note any information pertinent to the patient hand-off not included above. Information / Comments: Report from Víctor RN at 2315. Per Víctor pt is known to the ED and this is not her baseline, usually A&Ox4. Her friend was on the phone with her, knew something wasnt right and called the ambulance. Pt stating Im going crazy, I'm possessed I need a hospital. RN states pt unable to form full sentences saying this like Sick, , hospital. Per RN speech is slowed and garbled but not slurred. Left facial droop. Pt restless and anxious, getting OOB. Moves all extremities. Left side weaker than right per RN. Treating her as a stroke pt. Given metoprolol, lisinopril, ASA, and Lipitor in ED. BP remained high. Report received from: Víctor PATEL
--- NOTE | 2024-05-31 08:00 | DI.MRI_ITS ---
Exam(s) MR BRAIN WO EXAM: MR BRAIN WO CLINICAL HISTORY: TIA with aphasia TECHNIQUE: Multiplanar multisequence MRI of the brain was performed. COMPARISON: CT CT BRAIN NECK CTA from 05/30/2024 FINDINGS: The examination is limited due to patient motion artifact. VENTRICLES AND EXTRA AXIAL SPACES: Normal in size and morphology for the patient's age. MIDLINE SHIFT: None. CEREBRAL PARENCHYMA: No focus of restricted diffusion to suggest acute infarct. No space-occupying le ruby identified. There are areas of hyperintense signal seen in the white matter on the FLAIR and T2 weighted images consistent with chronic microvascular ischemic disease. HEMORRHAGE: None. BRAINSTEM/CEREBELLUM: Normal. CALVARIUM: Normal. VISUALIZED PARANASAL SINUSES/MASTOIDS:Clear. [place]: Normal flow void. PITUITARY GLAND: Unremarkable. OTHER FINDINGS: None. IMPRESSION: 1. No evidence of an acute infarct. 2. Multiple areas of hyperintense signal in the white matter on the FLAIR and T2 weighted images most consistent with chronic microvascular ischemic disease. DATA REPOSITORY:
[2024-05-31] MEDS: Multivitamin w/Minerals TAB 1 TAB PO (08:38)
[2024-05-31] MEDS: Aspirin 81 MG CHEW PO (08:38)
[2024-05-31] MEDS: Esomeprazole 40 MG CAPCR PO (08:38)
[2024-05-31] MEDS: Sertraline 100 MG TAB PO (08:38)
[2024-05-31] MEDS: lamoTRIgine 100 MG TAB PO (08:39)
[2024-05-31] MEDS: Lisinopril 20 MG TAB 40 MG PO (08:39)
[2024-05-31] MEDS: Normal Saline Flush 10 ML SYR IVP ×3 (08:40→20:37)
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
[2024-05-31] MEDS: MAGNESIUM SULFATE 2 GM/50 ML BAG IVINF (10:55)
[2024-05-31] MEDS: Normal Saline 1,000 ML 100 ML IV (10:55)
--- NOTE | 2024-05-31 15:55 | CHAPLAIN ---
Benita was in bed when I visited. She offered one-word responses to questions for comments and I wasn't always able to understand what she was saying. She also covered her mouth and chin with the sheets while I was in the room. As I was leaving, she told me it's a gift from my mother. I explained my role and offered support. I try to visit another time.
[2024-05-31] MEDS: Atorvastatin 40 MG TAB 80 MG PO (20:36)
[2024-06-01 03:30] VITALS: BP 106/61; PULSE 60; RESP 18; TEMP 36.7; O2SAT 93
[2024-06-01 06:58] LABS: Absolute Eosinophil Count 0.24 10^3/uL (0.0-0.7); HCT 39.5 % (36.0-46.0); HGB 13.4 g/dL (11.2-15.7); MCH 32.2 pg (27.0-33.0); MCHC 33.9 % (32.0-36.0); MCV 95 fL (80-95); MPV 10.1 fL (8.0-11.0); Platelet Count 128 10^3/uL (130-400); RBC 4.16 10^6/uL (3.93-5.22); RDW 11.8 % (11.7-14.6); WBC 8.16 10^3/uL (4.4-10.8)
[2024-06-01 07:23] LABS: Anion Gap 10.1 mmol/L (3-11); BUN 17 mg/dL (7-18); CO2 21.9 mmol/L (21.0-32.0); CREATININE 0.9 mg/dL (0.55-1.02); Calcium 9.1 mg/dL (8.5-10.1); Chloride 97 mmol/L (98-107); Estimated GFR 70.07 (mL/min/1.73m2); Glucose 92 mg/dL (74-106); Potassium 3.6 mmol/L (3.5-5.1); Sodium 129 mmol/L (136-145)
[2024-06-01 07:29] LABS: Absolute Neutrophil Count 3.67 10^3/uL (1.2-6.7); Bands % 0 %
[2024-06-01 07:30] LABS: Absolute Basophil Count 0.08 10^3/uL (0.0-0.2); Absolute Lymphocyte Count 2.69 10^3/uL (1.2-3.4); Absolute Monocyte Count 0.82 10^3/uL (0.1-0.8); Atypical Lymphocytes % 2 %; Diff Comment Manual Differential; Metamyelocytes % 5; Myelocytes % 3; Promyelocytes % 0; RBC Morphology Normal
[2024-06-01 07:51] VITALS: BP 109/60; PULSE 58; RESP 19; TEMP 36.9; O2SAT 92
[2024-06-01] MEDS: lamoTRIgine 100 MG TAB PO (08:54)
[2024-06-01] MEDS: Aspirin 81 MG CHEW PO (08:54)
[2024-06-01] MEDS: Sertraline 100 MG TAB PO (08:54)
[2024-06-01] MEDS: Lisinopril 20 MG TAB 40 MG PO (08:54)
[2024-06-01] MEDS: Esomeprazole 40 MG CAPCR PO (08:54)
[2024-06-01] MEDS: Multivitamin w/Minerals TAB 1 TAB PO (08:54)
[2024-06-01] MEDS: Normal Saline Flush 10 ML SYR IVP ×2 (08:55→19:31)
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
[2024-06-01] MEDS: Acetaminophen 325 MG TAB PO (10:01)
[2024-06-01] MEDS: Cyclobenzaprine 10 MG TAB 5 MG PO (10:01)
[2024-06-01 11:21] VITALS: BP 138/69; PULSE 71; RESP 17; TEMP 36.9; O2SAT 96
[2024-06-01] MEDS: Ketorolac 15 MG/ML VIAL IVP (11:36)
[2024-06-01] MEDS: Prochlorperazine 10 MG/2 ML VIAL 5 MG IVP (11:36)
[2024-06-01] MEDS: Metoprolol 12.5 MG TAB 25 MG PO ×2 (11:36→16:34)
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
--- NOTE | 2024-06-01 17:03 | INITIAL_ITS ---
Date of service: 06/01/24 Time of Service: 17:03 Care Management Initial Assmt Initial Assessment Reason for Hospitalization: TIA with aphasia, hypertension Functional Status/Living Situation Patient Presentation: Benita is presenting as confused, paranoid, fearful; request for no male providers, she is refusing to eat per RN report. Town of Residence: [place] Resides with: Alone Significant Other/Family: Local Advance Directives Advance Directives: Do you have an Advance Directive: N 03/27/24 14:51 AD On File at [facility]: N 03/27/24 14:51 Date Asked 05/30/24 05/30/24 15:14 AD Date Reviewed COLST On File at [facility] COLST Date Scanned Code Status Resuscitation Status Full Code Care Team Visit Care Team Role Provider Type Cathie Strange, KANDI Primary Care Provider NURSE PRACTITIONER Anjali Hogan, CURB HOP Other Providers SPEECH LANGUAGE PATHOLOGIST Juan Pablo Durand, [facility] Other Providers SPEECH LANGUAGE PATHOLOGIST Kaitlin Martin Other Providers SPEECH LANGUAGE PATHOLOGIST Rahcel Carl, [facility] Other Providers SPEECH LANGUAGE PATHOLOGIST Snow Finn, [facility] Other Providers SPEECH LANGUAGE PATHOLOGIST Eusebio Rome Other Providers OTHER Ab Haynes MD Emergency Provider [facility] STAFF PHYSICIAN Delbert Tam Admit Provider NON-[facility] STAFF PHYSICIAN Attending Provider Discharge Potential Discharge Needs: Consult (Neuro, [facility] Crisis, Tele Psych) Anticipated Barriers to Discharge: Medical Status Patient/Family Education Needs: Review discharge instructions, discuss Ask Me Three Transportation: Other (To be determined by disposition. ) Plan: Benita continues to present confused, assessment limited at this [id number] continues; CM [facility] All Active Problems (Updated 06/01/24 @ 16:56 by Radha Costa APRN) Suicidal ideation (Acute) Bipolar disorder (Acute) Hypomagnesemia (Acute) Hyponatremia (Acute) TIA (transient ischemic attack) (Acute) Aphasia (Acute) Fall (Acute) Bipolar I disorder (Chronic) [facility] Psychiatry Diverticular stricture (Chronic) Followed by [facility] Colon stricture (Chronic) Followed by [facility] Cramer's esophagus (Chronic) On 2009 EGD, not on 2012 EGD, on 2023 EGD Gastroesophageal reflux disease with esophagitis (Chronic) Diverticulosis of colon (Chronic) Chronic diarrhea (Chronic) Hypertension (Chronic) Hyperlipidemia (Chronic) Hiatal hernia (Chronic) Migraine (Chronic) 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) Glaucoma (Chronic) Allergic rhinitis (Chronic) Medical History TMJ (temporomandibular joint disorder) Diverticulitis of sigmoid colon Multiple episodes, seeing [facility] Diabetes mellitus Surgical History S/P cholecystectomy S/P BSO (bilateral salpingo-oophorectomy) (07/03/15) Status post foot surgery History of total vaginal hysterectomy (TVH) (07/03/15) With cystoscopy and rectocele repair History of esophagogastroduodenoscopy History of bilateral ligation of fallopian tubes Family History Mother Stroke Lung cancer Hypertension Father Heart disease Hyperlipidemia Hypertension Brother Heart disease DOUBLE BYPASS AGE 48 (NON SMOKER) Hyperlipidemia Son Depression Daughter Depression Maternal Grandfather Lung cancer Maternal Grandmother Heart disease Myocardial infarction Paternal Grandfather No problems noted. Paternal Grandmother Diabetes Social History Smoking/Tobacco Use Status: Former Tobacco Use Quit Date: 09/05/77 Smoking risk assessment performed?: Yes Alcohol Intake: never Drug use: Never Substance use type: does not use Housing: house Do you feel safe at home: Yes Do you feel safe in your relationship?: Yes Additional Social history: lives alone SDOH(Care Management) Screening Will the Patient Participate in the Screening?: Unable to obtain
[2024-06-01] MEDS: Heparin 5,000 UNITS/ML VIAL 5000 UNITS SC (18:16)
[2024-06-01] MEDS: traZODone 100 MG TAB 200 MG PO (19:31)
[2024-06-01] MEDS: lamoTRIgine 100 MG TAB 200 MG PO (19:31)
[2024-06-01] MEDS: Atorvastatin 40 MG TAB 80 MG PO (19:31)
[2024-06-01 19:39] VITALS: BP 169/93; PULSE 69; RESP 18; TEMP 37.1; O2SAT 93
[2024-06-02] VITALS (10 sets, daily range): BP systolic 86–169; BP diastolic 54–95; PULSE 53–82; RESP 14–19; TEMP 36.7–37.2; O2SAT 93–95
[2024-06-02] MEDS: Metoprolol 12.5 MG TAB 25 MG PO ×4 (00:04→18:01)
[2024-06-02] MEDS: Heparin 5,000 UNITS/ML VIAL 5000 UNITS SC ×3 (00:04→16:44)
[2024-06-02] MEDS: Sertraline 100 MG TAB PO (07:40)
[2024-06-02] MEDS: lamoTRIgine 100 MG TAB PO (07:41)
[2024-06-02] MEDS: Lisinopril 20 MG TAB 40 MG PO (07:41)
[2024-06-02] MEDS: Multivitamin w/Minerals TAB 1 TAB PO (07:41)
[2024-06-02] MEDS: Esomeprazole 40 MG CAPCR PO (07:41)
[2024-06-02] MEDS: Normal Saline Flush 10 ML SYR IVP ×2 (07:43→12:43)
[2024-06-02] MEDS: Aspirin 81 MG CHEW PO (09:10)
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
[2024-06-02 09:56] LABS: Abs Immature Grans 1.11 10^3/uL (0.0-0.06); HCT 43.9 % (36.0-46.0); HGB 15.6 g/dL (11.2-15.7); MCH 32.2 pg (27.0-33.0); MCHC 35.5 % (32.0-36.0); MCV 91 fL (80-95); MPV 9.9 fL (8.0-11.0); Platelet Count 152 10^3/uL (130-400); RBC 4.84 10^6/uL (3.93-5.22); RDW 11.4 % (11.7-14.6); RDW-SD 38.2 fL; WBC 10.91 10^3/uL (4.4-10.8)
[2024-06-02 10:05] LABS: Anion Gap 12.6 mmol/L (3-11); BUN 14 mg/dL (7-18); CO2 20.4 mmol/L (21.0-32.0); CREATININE 0.7 mg/dL (0.55-1.02); Calcium 9.3 mg/dL (8.5-10.1); Chloride 94 mmol/L (98-107); Estimated GFR 94.73 (mL/min/1.73m2); Glucose 121 mg/dL (74-106); Potassium 3.6 mmol/L (3.5-5.1); Sodium 127 mmol/L (136-145)
[2024-06-02 10:21] LABS: Absolute Basophil Count 0.11 10^3/uL (0.0-0.2); Absolute Eosinophil Count 0.22 10^3/uL (0.0-0.7); Absolute Lymphocyte Count 1.96 10^3/uL (1.2-3.4); Absolute Monocyte Count 1.64 10^3/uL (0.1-0.8); Absolute Neutrophil Count 6.44 10^3/uL (1.2-6.7); Metamyelocytes % 4; Myelocytes % 1
[2024-06-02 10:22] LABS: Diff Comment Manual Differential; RBC Morphology Normal
[2024-06-02] MEDS: Ketorolac 15 MG/ML VIAL IVP ×2 (12:41→18:01)
--- NOTE | 2024-06-02 14:06 | PHA.REVIEW2 ---
Pharmacy Admission Review Admission Clinical Review Admission Pharmacy Review: Suicidal ideation (Acute) Bipolar disorder (Acute) Hypomagnesemia (Acute) Hyponatremia (Acute) TIA (transient ischemic attack) (Acute) Aphasia (Acute) Fall (Acute) latex Adverse Reaction (Severe, Verified 05/28/24 15:33) Skin Rash amoxicillin (From Augmentin) Adverse Reaction (Unverified 05/28/24 15:33) Agitation azithromycin (From Zithromax) Adverse Reaction (Verified 05/28/24 15:33) headache, hearing loss,double vision, DAVILA ciprofloxacin (From Cipro) Adverse Reaction (Verified 05/28/24 15:33) Dizziness/Lightheade clavulanic acid (From Augmentin) Adverse Reaction (Unverified 05/28/24 15:33) Agitation codeine Adverse Reaction (Verified 05/28/24 15:33) GI upset doxycycline Adverse Reaction (Unverified 05/28/24 15:33) Other (See Comment) metronidazole (From Flagyl) Adverse Reaction (Unverified 05/28/24 15:33) Agitation Penicillins Adverse Reaction (Unverified 05/28/24 15:33) Other (See Comment) Sulfa (Sulfonamide Antibiotics) Adverse Reaction (Verified 05/28/24 15:33) anxious Resuscitation Status Full Code Height 5 ft 4 in Weight 69.5 kg Pharmacy Admission Review Renal Dosing Renal Dosing: BUN 14 mg/dL (7-18) 06/02/24 09:45 Creatinine 0.7 mg/dL (0.55-1.02) 06/02/24 09:45 Medications needing adjustments: Reviewed (CrCl 52.24 mL/min) List of meds needing interventions: Current medications are okay Anticoagulation Anticoagulation: Hgb 15.6 g/dL (11.2-15.7) D 06/02/24 09:45 Hct 43.9 % (36.0-46.0) 06/02/24 09:45 Plt Count 152 10^3/uL (130-400) 06/02/24 09:45 Creatinine 0.7 mg/dL (0.55-1.02) 06/02/24 09:45 DVT Prophylaxis: Reviewed Medications: Heparin (q8h) Relevant Labs Relevant Labs: Sodium 127 mmol/L (136-145) L 06/02/24 09:45 Potassium 3.6 mmol/L (3.5-5.1) 06/02/24 09:45 Chloride 94 mmol/L (98-107) L 06/02/24 09:45 Magnesium 2.0 mg/dL (1.8-2.4) 06/01/24 06:29 Electrolytes, C-Reactive P, ESR: Reviewed (Na decreased from 129, glucose 121) Cardiac Review Cardiac Review: Troponin I Cancelled 05/30/24 19:15 Blood Pressure 169/77 1104 Blood Pressure 139/91 0747 Blood Pressure 164/90 0553 Blood Pressure 124/89 0318 BP, HR, EF%: Reviewed (HR 57) List meds needing interventions: Has order for lisinopril 40mg daily and metoprolol 25mg q6h QTc Review QTc: Reviewed (473 from 05/30/24) IV to PO Switch IV Medications: Reviewed (ketorolac) Home Meds Home Med List reviewed: Reviewed Relevent Home Meds Not ordered & why?: rizatriptan (on hold due to Rexulti interaction and increased risk of cerebrovascular events. Provider wants to change to Ubrelvy but is nonformulary here), simvastatin (changed to high intensity atorvastatin) Current Meds Current Medication Order Review: Reviewed
[2024-06-02] MEDS: amLODIPine 5 MG TAB PO (14:29)
[2024-06-02] MEDS: Normal Saline 1,000 ML 100 ML IV (14:30)
[2024-06-02] MEDS: Acetaminophen 325 MG TAB PO ×2 (15:45→20:40)
[2024-06-02 17:37] LABS: Sodium, Urine 50 mmol/L
[2024-06-02] MEDS: lamoTRIgine 100 MG TAB 200 MG PO (20:41)
[2024-06-02] MEDS: traZODone 100 MG TAB 200 MG PO (20:41)
[2024-06-02] MEDS: Atorvastatin 40 MG TAB 80 MG PO (20:41)
[2024-06-02] MEDS: Cyclobenzaprine 10 MG TAB 5 MG PO (20:54)
[2024-06-02] MEDS: Polyethylene Glycol 3350 17 GM PACKET PO (20:55)
[2024-06-02] MEDS: Docusate Sodium 100 MG CAP PO (20:55)
[2024-06-02] MEDS: Normal Saline 500 ML 1000 ML IV (23:55)
[2024-06-03] VITALS (12 sets, daily range): BP systolic 91–130; BP diastolic 40–74; PULSE 60–83; RESP 16–18; TEMP 36.4–37.3; O2SAT 90–97
--- NOTE | 2024-06-03 | DI.RAD_ITS ---
Exam(s) XR CHEST 2V PA LATERAL EXAM: XR CHEST 2V PA LATERAL CLINICAL HISTORY: Increased WBC TECHNIQUE: 2D digital imaging was performed of the chest. Two images were obtained. PA and lateral views were obtained. COMPARISON: CR XR PORTABLE CHEST AP from 05/30/2024 FINDINGS: MEDIASTINUM: Normal. HEART: Normal. PULMONARY VASCULATURE: Normal. LUNGS: Clear. PLEURAL SPACE: No pleural effusion or pneumothorax. BONE:Within normal limits for the patient's age. OTHER FINDINGS:Normal. IMPRESSION: No acute pulmonary findings. DATA REPOSITORY: RADIATION DOSE DELIVERED:
[2024-06-03] MEDS: Normal Saline 1,000 ML 100 ML IV ×3 (00:03→20:00)
[2024-06-03] MEDS: Heparin 5,000 UNITS/ML VIAL 5000 UNITS SC ×4 (01:31→23:47)
[2024-06-03] MEDS: Acetaminophen 325 MG TAB PO ×3 (03:23→20:00)
[2024-06-03 06:48] LABS: Abs Immature Grans 1.87 10^3/uL (0.0-0.06); HCT 36.3 % (36.0-46.0); HGB 12.5 g/dL (11.2-15.7); MCH 32.3 pg (27.0-33.0); MCHC 34.4 % (32.0-36.0); MCV 94 fL (80-95); MPV 9.8 fL (8.0-11.0); Platelet Count 119 10^3/uL (130-400); RBC 3.87 10^6/uL (3.93-5.22); RDW 11.9 % (11.7-14.6); RDW-SD 40.9 fL; WBC 21.46 10^3/uL (4.4-10.8)
[2024-06-03 07:10] LABS: Anion Gap 11.7 mmol/L (3-11); BUN 27 mg/dL (7-18); CO2 20.3 mmol/L (21.0-32.0); CREATININE 1.4 mg/dL (0.55-1.02); Calcium 8.4 mg/dL (8.5-10.1); Chloride 99 mmol/L (98-107); Estimated GFR 41.24 (mL/min/1.73m2); Glucose 126 mg/dL (74-106); Magnesium 1.3 mg/dL (1.8-2.4); Potassium 3.6 mmol/L (3.5-5.1); Sodium 131 mmol/L (136-145)
[2024-06-03 07:40] LABS: Absolute Basophil Count 0.21 10^3/uL (0.0-0.2); Absolute Eosinophil Count 0.43 10^3/uL (0.0-0.7); Absolute Lymphocyte Count 0.86 10^3/uL (1.2-3.4); Absolute Monocyte Count 2.79 10^3/uL (0.1-0.8); Absolute Neutrophil Count 16.74 10^3/uL (1.2-6.7); Bands % 2 %; Diff Comment Manual Differential; Metamyelocytes % 1; Myelocytes % 1
[2024-06-03 07:41] LABS: RBC Morphology Normal
[2024-06-03] MEDS: Aspirin 81 MG CHEW PO (07:59)
[2024-06-03] MEDS: Esomeprazole 40 MG CAPCR PO (07:59)
[2024-06-03] MEDS: Multivitamin w/Minerals TAB 1 TAB PO (07:59)
[2024-06-03] MEDS: lamoTRIgine 100 MG TAB PO (07:59)
[2024-06-03] MEDS: Sertraline 100 MG TAB PO (07:59)
[2024-06-03 10:01] LABS: Bilirubin Small (Negative); Blood Negative (Negative); Clarity Sl Cloudy (Clear); Glucose Negative (Negative); Ketones 15 mg/dL (Negative); Leukocyte Esterase Small (Negative); Nitrite Negative (Negative); Specific Gravity 1.025 (1.005-1.025); Urobilinogen 0.2 mg/dL (Up to 0.2)
[2024-06-03] MEDS: MAGNESIUM SULFATE 2 GM/50 ML BAG IVINF (10:02)
[2024-06-03] MEDS: Lactated Ringers 500 ML IV (10:12)
[2024-06-03 10:13] LABS: Bacteria Many HPF (Negative); Crystals Negative HPF (Negative); Epithelial Cells Moderate HPF (Negative); RBC 0-2 HPF (0-2)
[2024-06-03 10:14] LABS: C & S Indicated? No/Sq. Contamination; Casts Negative LPF (Negative); Mucus Negative (Negative)
--- NOTE | 2024-06-03 10:58 | CMPROGNOTE_ITS ---
Date of service: 06/02/24 Time of Service: 14:00 Care Management Progress Note Progress Note Text Progress Note Text: Benita was lying in bed when CM met with her. She stated she was doing OK however she had a headache. She had communicated that to her nurse who was getting Tylenol for her. Benita is much clearer today than she has been. She was pleasant in interaction and appropriate with CM. Her WBC has normalized as has her kidney function and sodium level. One of the 2 blood cultures drawn on 06/03/24 is now growing gram positive cocci. She is on appropriate antibiotics which will be narrowed down once the organism has been speciated and susceptibil ities are known. Discharge Potential Discharge Needs: PCP F/U Appt Anticipated Barriers to Discharge: Medical Status Patient/Family Education Needs: Review discharge instructions, discuss Ask Me Three Transportation: Private vehicle Plan: Anticipate Benita will be discharged home with a resumption of her community services including mental health support, when medically ready. She will follow up with her PCP. therapist and plan of care and transport via private vehicle. CM will follow and continue to support discharge planning considerations. SDOH(Care Management) Screening Will the Patient Participate in the Screening?: Unable to obtain
[2024-06-03] MEDS: Mylanta Suspension 30 ML CUP PO ×2 (12:38→20:08)
[2024-06-03] MEDS: cefTRIAXone 1 GM/50 ML BAG IVPB (12:40)
--- NOTE | 2024-06-03 13:00 | RT.EKG_ITS ---
APPROVED REPORT Exam: Resting ECG Reason for Exam: hypotension; JORDANA; long QT Patient Location: I HR:75 bpm ECG Measurements Heart Rate 75 AXIS IL 170 P 55 QRSd 65 QRS 50 QT 373 T 68 QTc 417 Conclusion Poor quality data, interpretation may be affected Sinus rhythm...normal P axis, V-rate 50- 99 Probably normal
--- NOTE | 2024-06-03 15:21 | W.PM.PROGNOT ---
Date of Service Date of service: 06/03/24 Time of Service: 15:21 Assessment and Plan Assessment and plan (1) TIA (transient ischemic attack): Status: Acute Assessment and plan: CT and MRI were negative - will not repeat at this time EEG pending VS out patient Echo completed - negative for shunt Remains on ASA and lipitor (2) Leukocytosis: Status: Acute Assessment and plan: New WBC 21k BC pending Urine neg ceftriaxone 1 gm emperic LP in am after off heparin fro > 6h (3) JORDANA (acute kidney injury): Status: Acute Assessment and plan: Cr 1.4 LR 500 ml bolus Renal US in am Trend Cr Urine output sufficient (4) Hypotension: Status: Acute Assessment and plan: Overnight S80's hold antihypertensives Monitor BP (5) Hyponatremia: Status: Resolved Assessment and plan: Sodium 131 Trend (6) Hypomagnesemia: Status: Acute Assessment and plan: 1.3 - 2 gm IV trend (7) Bipolar disorder: Status: Acute Assessment and plan: Continue home dose Lluvia, Provider at [facility], mentioned that the patient was stable for the first time taking this medicine (8) Suicidal ideation: Status: Resolved Assessment and plan: Denies suicidal ideation (9) Long QT interval: Status: Acute Assessment and plan: > 600; hold meds that prolong QT continue telemetry (10) Bipolar I disorder: Status: Chronic Assessment and plan: Chronic medical therapy with psychiatric follow-up as planned; in transition of care Continue home meds (11) Hyperlipidemia: Status: Chronic Assessment and plan: On atorvastatin 80 mg daily. Qualifiers: Hyperlipidemia type: mixed hyperlipidemia Qualified Code(s): E78.2 - Mixed hyperlipidemia (12) Hypertension: Status: Resolved Qualifiers: Hypertension type: primary hypertension Qualified Code(s): I10 - Essential (primary) hypertension (13) Aphasia: Status: Resolved (14) Fall: Status: Resolved Assessment and plan: DISCUSSED WITH DR RODRIGUEZ Qualifiers: Encounter type: subsequent encounter Qualified Code(s): W19.XXXD - Unspecified fall, subsequent encounter Subjective Subjective Patient reports: no new complaints, still having pain, voiding w/o difficulty, nausea and afebrile; denies diarrhea or vomiting Interval history since last seen: Patient continues to complain of headache, no neck pain. She refused tylenol earlier today for her headache. She is complaining of feeling anxious. Exam Narrative Exam Narrative: General: Patient appears w/o distress, thought teaful today, alert and oriented HEENT: Normocephalic, PERRLA Lungs: Cler bilat, Room air Heart:Tele SR Regular, S1, S2 no murmur, positive radial and pedal pulses Abdomen: Soft nontender to palpation, bowel sounds are present in all quadrants. Extremities: Without clubbing, cyanosis or pitting edema., strength 5/5 Neuro: Cranial nerves II through XII grossly intact, no focal deficits Psych: No suicidal ideation, flat affect Objective Last Vital Signs Temp 37.2 C 06/03/24 09:25 Pulse 72 06/03/24 09:25 Resp 18 06/03/24 09:25 BP 110/74 06/03/24 11:37 Pulse Ox 97 06/03/24 09:25 Laboratory Results - last 24 hr 06/02/24 06/03/24 06/03/24 17:20 06:15 09:34 WBC 21.46 H RBC 3.87 L Hgb 12.5 D Hct 36.3 MCV 94 MCH 32.3 MCHC 34.4 RDW 11.9 Plt Count 119 L MPV 9.8 Immature Gran % See Differential Neutrophils % 76.0 Band Neutrophils % 2 Lymphocytes % 4.0 Monocytes % 13.0 Eosinophils % 2.0 Basophils % 1.0 Metamyelocytes % 1 Myelocytes % 1 Nucleated RBC % 0.0 Absolute Neutrophils 16.74 H Absolute Lymphocytes 0.86 L Absolute Monocytes 2.79 H Absolute Eosinophils 0.43 Absolute Basophils 0.21 H RBC Morphology Normal Sodium 131 L Potassium 3.6 Chloride 99 Carbon Dioxide 20.3 L Anion Gap 11.7 H BUN 27 H Creatinine 1.4 H Est GFR (CKD-EPI 2020) 41.24 Glucose 126 H Calcium 8.4 L Magnesium 1.3 L Urine Color Yellow Urine Clarity Sl Cloudy Urine pH 5.0 Ur Specific Levering 1.025 Urine Protein 100 H Urine Ketones 15 H Urine Blood Negative Urine Nitrite Negative Urine Bilirubin Small H Urine Urobilinogen 0.2 Ur Leukocyte Esterase Small H Urine RBC 0-2 Urine WBC 5-10 Ur Epithelial Cells Moderate Urine Crystals Negative Urine Bacteria Many Urine Casts Negative Urine Mucus Negative Ur Culture Indicated? No/Sq. Contamination Ur Random Sodium 50 Urine Glucose Negative Time Spent with Patient Time Spent with Patient: 35-49 minutes Time was spent: preparing to see the patient(eg.review tests), ordering medications,tests, procedures, referring, communicating with other health progressive care manager, indepentently interpreting results and counseling the patient
[2024-06-03] MEDS: hydrOXYzine HCL 25 MG TAB PO (15:27)
[2024-06-03 16:16] LABS: Osmolality, Urine 519 mOsm/kg (150-1150)
[2024-06-03 18:23] LABS: COVID-19 PCR Negative (Negative); Influenza A PCR Negative (Negative); Influenza B PCR Negative (Negative); RSV PCR Negative (Negative)
[2024-06-03 18:24] LABS: Source NASOPHARYNX
[2024-06-03] MEDS: Atorvastatin 40 MG TAB 80 MG PO (19:59)
[2024-06-03] MEDS: hydrOXYzine HCL 50 MG TAB PO (20:00)
[2024-06-03] MEDS: lamoTRIgine 100 MG TAB 200 MG PO (20:00)
[2024-06-03] MEDS: Normal Saline Flush 10 ML SYR IVP (20:02)
--- NOTE | 2024-06-04 | DI.US_ITS ---
Exam(s) US RENAL EXAM: US RENAL CLINICAL HISTORY: JORDANA. TECHNIQUE: Baldwin scale, color and spectral Doppler were used. COMPARISON: CT CT ABDOMEN PELVIS W from 03/10/2024 FINDINGS: Right kidney: 9.8cm Echogenicity: Normal Hydronephrosis: No Cyst or mass: No Nephrolithiasis: No Left kidney: 11.0cm Echogenicity: Normal Hydronephrosis: No Cyst or mass: Solid echogenic nodule mid lateral left kidney measuring 2.6 cm in maximal dimension, c onsistent with previously noted angiomyolipoma. Nephrolithiasis: No Bladder:Normal. Prevoid vol:332 cc Postvoid vol:34 cc IMPRESSION: No evidence of hydronephrosis. Stable appearance of left-sided angiomyolipoma. DATA REPOSITORY:
[2024-06-04 03:20] VITALS: BP 146/58; PULSE 84; RESP 16; TEMP 36.6; O2SAT 95
[2024-06-04 06:49] LABS: HCT 35.7 % (36.0-46.0); MCH 32.2 pg (27.0-33.0); MCHC 33.6 % (32.0-36.0); MCV 96 fL (80-95); MPV 9.4 fL (8.0-11.0); Platelet Count 110 10^3/uL (130-400); RBC 3.73 10^6/uL (3.93-5.22); RDW 12.2 % (11.7-14.6); RDW-SD 42.8 fL; WBC 8.27 10^3/uL (4.4-10.8)
[2024-06-04 06:59] LABS: Anion Gap 7.3 mmol/L (3-11); BUN 13 mg/dL (7-18); C-Reactive Protein 4.25 mg/dL (<or=0.5); CO2 25.7 mmol/L (21.0-32.0); CREATININE 0.9 mg/dL (0.55-1.02); Calcium 8.6 mg/dL (8.5-10.1); Chloride 107 mmol/L (98-107); Estimated GFR 70.07 (mL/min/1.73m2); Glucose 91 mg/dL (74-106); Magnesium 1.7 mg/dL (1.8-2.4); Potassium 3.6 mmol/L (3.5-5.1); Sodium 140 mmol/L (136-145)
[2024-06-04 07:20] LABS: Absolute Basophil Count 0.08 10^3/uL (0.0-0.2); Absolute Eosinophil Count 0.08 10^3/uL (0.0-0.7); Absolute Monocyte Count 0.25 10^3/uL (0.1-0.8); Absolute Neutrophil Count 5.38 10^3/uL (1.2-6.7); Diff Comment Manual Differential; Metamyelocytes % 1; RBC Morphology Normal
[2024-06-04 08:34] VITALS: BP 159/79; PULSE 88; RESP 14; TEMP 37; O2SAT 94
[2024-06-04] MEDS: Esomeprazole 40 MG CAPCR PO (08:40)
[2024-06-04] MEDS: Aspirin 81 MG CHEW PO (08:40)
[2024-06-04] MEDS: lamoTRIgine 100 MG TAB PO (08:40)
[2024-06-04] MEDS: Multivitamin w/Minerals TAB 1 TAB PO (08:40)
[2024-06-04] MEDS: Sertraline 100 MG TAB PO (08:40)
[2024-06-04] MEDS: Normal Saline Flush 10 ML SYR IVP ×2 (08:42→20:55)
[2024-06-04 09:29] LABS: Clarity Clear; RBC 0 /mm3 (0-5); Tube # 4; WBC 1 /uL (0-5); Xanthochromia Absent
[2024-06-04 09:42] LABS: Glucose (CSF) 54 mg/dL (40-70); Total Protein (CSF) 61 mg/dL (15-45)
--- NOTE | 2024-06-04 10:21 | W.ANESPROC ---
Lumbar Puncture Date Performed: 06/04/24 Procedure Time: 08:00 Requesting Provider: Kimberley Forde Procedure Location: Med/Surg Standard Monitors Applied: None Used Patient Position: Right Lateral Decubitus Timeout Performed: Yes Sedation Given (Indicate Dose Given): No Sedation given Patient Mental Status: Awake Sterility: Hand Hygiene, Surgical Cap, Surgical Mask, Sterile Gloves, Sterile Drape/Sheet, Sterile Gown, Eye Protection and Chlorhexidine Placement Site: L4-L5 Interspace Spinal Needle Type: Gavin 22 Gauge Needle Length: 3.5 Inch Lumbar Puncture Procedure: Site Prepped, Sterile Drape Placed, 1% Lidocaine to skin and subcutaneous tissue with 25G needle, Introducer Needle Used, Spinal Needle Placed, Positive CSF Flow and CSF Specimen placed into Tubes in Sequential Order Ultrasound: Used to marty site Opening CSF Pressure (cmH2O): 20 Closing CSF Pressure (cmH2O): 18 Paresthesia: None Number of Previous Attempts by Other Providers: 0 Number of Attempts (See previous attempts in note section): 1 Procedure Tolerated: No Complications Procedure Outcome: Successful Performed By: Carl Madison
--- NOTE | 2024-06-04 10:25 | W.ANESVAS ---
Midline Placement Date Performed: 06/04/24 Procedure Time: 08:50 Requesting Provider: Dennis Ha Procedure Location: Med/Surg Sedation Given (Indicate Dose Given): No Sedation given Patient Mental Status: Awake Sterility: Hand Hygiene, Surgical Cap, Surgical Mask, Sterile Gloves and Chlorhexidine Laterality: Left Insertion Site: Basilic Midline Device: PowerGlide Pro 20G Catheter Length: 10 cm Midline Procedure Procedure: 1% Lidocaine to skin and subcutaneous tissue with 25g needle and Catheter placed without resistance Dressing: Tegaderm Applied Blood Return: Present Flushes: Easily Ultrasound: Sterile probe cover and gel used Ultrasound Image Saved?: Yes Number of Attempts (See previous attempts in note section): 2 Procedure Tolerated: No Complications Procedure Outcome: Successful Procedure Comment:: Pt with very difficult IV access, she has multiple gauze sites from previous IVs/attempts. Her blood cultures are also positive. Given the difficult IV access and no current IV access a midline was determined to be a good choice for her. The first attempt was performed by myself and JORGE Lyles on the left cephalic. Unfortunately, the vessel spasmed and access after was challenging. A wire was able to eventually be advanced into the vessel, but only up to a few CM and had hold up (? a valve on US imaging) and the site was abandoned. The final attempt was performed by me on the basilic without issues. Performed By: Carl Madison
[2024-06-04] MEDS: VANCOMYCIN/WATER (PEG) 1.5 GM/300 ML BAG IVPB (11:06)
[2024-06-04] MEDS: LORazepam 0.5 MG TAB PO (11:24)
[2024-06-04 11:31] VITALS: BP 164/81; PULSE 89; RESP 17; TEMP 36.8; O2SAT 96
--- NOTE | 2024-06-04 12:36 | W.PM.PROGNOT ---
Date of Service Date of service: 06/04/24 Time of Service: 12:36 Assessment and Plan Assessment and plan (1) Gram-positive bacteremia: Status: Acute Assessment and plan: Patient had increased WBC, JORDANA develop 06/03 with unclear source. Today GPC in blood. Ceftriaxone started 06/03 empirically, which dose seem to be effective as WBC down. Even so, will add vancomycin until GPC is speciated with resistence data Must consider SBE if this is a pathologic organism in the setting of recent TIA. Would need VISHAL to rule out. (2) TIA (transient ischemic attack): Status: Acute Assessment and plan: Presenting with expressive aphasia. CT and MRI were negative on admission - will not repeat at this time EEG pending VS out patient Echo completed - negative for shunt or vegetations. Remains on ASA and lipitor (3) JORDANA (acute kidney injury): Status: Acute Assessment and plan: Cr 1.4 06/03 up from 0.7 on 06/02, associated with borderline hypotention. LR 500 ml bolus and fluids started Renal US reassuring This was pre-renal, likely related to bacteremia as above. Improved today. Can stop IV fluids as taking good oral fluids (4) Hyponatremia: Status: Resolved Assessment and plan: Sodium normalized today after hydration. Stop fluid restriction. Follow (5) Hypomagnesemia: Status: Acute Assessment and plan: Still low, give additional supplemement (6) Bipolar disorder: Status: Acute Assessment and plan: Continue home dose Rexulti, lamotrigine Provider at [facility], mentioned that the patient was stable for the first time taking the the Rexulti Lamotrigine and sertraline can cause hyponatremia, but will continue and monitor. hydroxyzine qhs, one time dose of lorazepam now. (7) Suicidal ideation: Status: Resolved Assessment and plan: Denies suicidal ideation currently (8) Long QT interval: Status: Acute Assessment and plan: improved 06/03 Subjective Subjective Patient reports: tolerating a regular diet and voiding w/o difficulty; denies diarrhea, vomiting or shortness of breath Interval history since last seen: Events: WBC and Cr up 06/03, unclear source, started on ceftriaxone, blood cultures sent Blood culture 1/2 positive for GPC LP done this morning, Midline placed She is feeling anxious this morning. She has an apical headache, moderate, which is typical for her. She gets a little dizzy when she gets up. She has no neck stiffness. no fever. She feels her heart racing when anxious but no chest pain or abdominal pain, not nauseous. Exam Narrative Exam Narrative: General: Patient appears w/o distress, mildly anxious but not tearful today, alert and oriented HEENT: Normocephalic, PERRLA Lungs: Cler bilat, Room air, normal effort Heart:Tele SR Regular, S1, S2 no murmur, positive radial and pedal pulses Abdomen: Soft nontender to palpation Extremities: Without clubbing, cyanosis or pitting edema Neuro: Cranial nerves II through XII intact, normal movement and coordination 4 extremities. DTRs 2+ mariah. Normal speech. Psych: No suicidal ideation, mildly anxious affect, hearing voices in her head still. Objective Last Vital Signs Temp 36.8 C 06/04/24 11:31 Pulse 89 06/04/24 11:31 Resp 17 06/04/24 11:31 BP 164/81 H 06/04/24 11:31 Pulse Ox 96 06/04/24 11:31 Laboratory Results - last 24 hr 06/02/24 06/03/24 06/04/24 17:20 17:30 06:38 WBC 8.27 RBC 3.73 L Hgb 12.0 Hct 35.7 L MCV 96 H MCH 32.2 MCHC 33.6 RDW 12.2 Plt Count 110 L MPV 9.4 Immature Gran % 0.0 Neutrophils % 65.0 Lymphocytes % 29.0 Monocytes % 3.0 Eosinophils % 1.0 Basophils % 1.0 Metamyelocytes % 1 Nucleated RBC % 0.0 Absolute Neutrophils 5.38 Absolute Lymphocytes 2.40 Absolute Monocytes 0.25 Absolute Eosinophils 0.08 Absolute Basophils 0.08 RBC Morphology Normal Xanthochromia Sodium 140 Potassium 3.6 Chloride 107 Carbon Dioxide 25.7 Anion Gap 7.3 BUN 13 Creatinine 0.9 Est GFR (CKD-EPI 2020) 70.07 Glucose 91 Calcium 8.6 Magnesium 1.7 L C-Reactive Protein 4.25 H Urine Osmolality 519 B. burgdorferi (PCR) B. mayonii (PCR) B.garinii/B.afzelii PCR Fluid Comment CSF Tube Number CSF Color CSF Clarity CSF WBC CSF RBC CSF Diff Comment CSF Glucose CSF Total Protein CSF West Nile RNA Lyme Specimen Source COVID-19 Source NASOPHARYNX SARS-CoV-2 (PCR) Negative HSV Source Description HSV I DNA PCR HSV II DNA PCR Influenza Type A (PCR) Negative Influenza Type B (PCR) Negative RSV (PCR) Negative 06/04/24 06/04/24 08:40 Unknown WBC RBC Hgb Hct MCV MCH MCHC RDW Plt Count MPV Immature Gran % Neutrophils % Lymphocytes % Monocytes % Eosinophils % Basophils % Metamyelocytes % Nucleated RBC % Absolute Neutrophils Absolute Lymphocytes Absolute Monocytes Absolute Eosinophils Absolute Basophils RBC Morphology Xanthochromia Absent Sodium Potassium Chloride Carbon Dioxide Anion Gap BUN Creatinine Est GFR (CKD-EPI 2020) Glucose Calcium Magnesium C-Reactive Protein Urine Osmolality B. burgdorferi (PCR) Cancelled B. mayonii (PCR) Cancelled B.garinii/B.afzelii PCR Cancelled Fluid Comment Cancelled CSF Tube Number 4 CSF Color Colorless CSF Clarity Clear CSF WBC 1 CSF RBC 0 CSF Diff Comment CSF Glucose 54 CSF Total Protein 61 H CSF West Nile RNA Cancelled Lyme Specimen Source Cancelled COVID-19 Source SARS-CoV-2 (PCR) HSV Source Description Cancelled HSV I DNA PCR Cancelled HSV II DNA PCR Cancelled Influenza Type A (PCR) Influenza Type B (PCR) RSV (PCR) Time Spent with Patient Time Spent with Patient: >50 minutes Time was spent: preparing to see the patient(eg.review tests), obtaining and/or reviewing separately otained hiistory, ordering medications,tests, procedures, referring, communicating with other health housekeeper caregiver, indepentently interpreting results, counseling the patient and care coordination
[2024-06-04] MEDS: Acetaminophen 325 MG TAB PO ×2 (12:59→20:53)
[2024-06-04] MEDS: cefTRIAXone 1 GM/50 ML BAG IVPB (13:00)
[2024-06-04] MEDS: MAGNESIUM SULFATE 2 GM/50 ML BAG IVINF (14:15)
[2024-06-04 15:19] VITALS: BP 121/66; PULSE 85; RESP 15; TEMP 37.2; O2SAT 95
[2024-06-04] MEDS: Docusate Sodium 100 MG CAP PO (17:02)
[2024-06-04] MEDS: Enoxaparin 40 MG/0.4 ML SYR SC (17:02)
[2024-06-04] MEDS: Polyethylene Glycol 3350 17 GM PACKET PO (17:03)
[2024-06-04 19:41] VITALS: BP 147/84; PULSE 70; RESP 17; TEMP 36.4; O2SAT 97
[2024-06-04] MEDS: Atorvastatin 40 MG TAB 80 MG PO (20:54)
[2024-06-04] MEDS: lamoTRIgine 100 MG TAB 200 MG PO (20:54)
[2024-06-04 21:51] LABS: Vancomycin, Trough 11.9 ug/mL (10.0-20.0)
[2024-06-04] MEDS: VANCOMYCIN/WATER (PEG) 750 MG/150 ML BAG 150 MG IVPB (23:05)
[2024-06-04 23:47] VITALS: BP 121/67; PULSE 76; RESP 18; TEMP 36.3; O2SAT 95
[2024-06-05 03:32] VITALS: BP 134/81; PULSE 73; RESP 18; TEMP 36.7; O2SAT 94
[2024-06-05] MEDS: Acetaminophen 325 MG TAB PO ×4 (03:45→21:53)
[2024-06-05 06:52] LABS: Abs Immature Grans 0.13 10^3/uL (0.0-0.06); Absolute Basophil Count 0.04 10^3/uL (0.0-0.2); Absolute Eosinophil Count 0.29 10^3/uL (0.0-0.7); Absolute Monocyte Count 0.93 10^3/uL (0.1-0.8); Absolute Neutrophil Count 2.77 10^3/uL (1.2-6.7); Basophils % 0.6 %; Eosinophils % 4.7 %; HCT 32.7 % (36.0-46.0); Immature Grans % 2.1 %; Lymphocytes % 32.5 %; MCH 32.4 pg (27.0-33.0); MCHC 33.6 % (32.0-36.0); MCV 96 fL (80-95); MPV 9.9 fL (8.0-11.0); Monocytes % 15.1 %; Platelet Count 117 10^3/uL (130-400); RDW 12.4 % (11.7-14.6); RDW-SD 43.2 fL; WBC 6.16 10^3/uL (4.4-10.8)
[2024-06-05 07:07] LABS: Anion Gap 8.7 mmol/L (3-11); BUN 7 mg/dL (7-18); CO2 26.3 mmol/L (21.0-32.0); CREATININE 0.8 mg/dL (0.55-1.02); Calcium 8.3 mg/dL (8.5-10.1); Chloride 106 mmol/L (98-107); Estimated GFR 80.71 (mL/min/1.73m2); Glucose 93 mg/dL (74-106); Potassium 3.6 mmol/L (3.5-5.1); Sodium 141 mmol/L (136-145)
[2024-06-05 07:20] LABS: Diff Comment Agrees w/ Instrument; RBC Morphology Normal
[2024-06-05 08:19] VITALS: BP 138/75; PULSE 78; RESP 15; TEMP 36.5; O2SAT 97
[2024-06-05] MEDS: lamoTRIgine 100 MG TAB PO (08:23)
[2024-06-05] MEDS: Multivitamin w/Minerals TAB 1 TAB PO (08:23)
[2024-06-05] MEDS: Esomeprazole 40 MG CAPCR PO (08:23)
[2024-06-05] MEDS: Polyethylene Glycol 3350 17 GM PACKET PO (08:23)
[2024-06-05] MEDS: Sertraline 100 MG TAB PO (08:23)
[2024-06-05] MEDS: Aspirin 81 MG CHEW PO (08:23)
[2024-06-05] MEDS: Normal Saline Flush 10 ML SYR IVP ×2 (08:24→20:07)
[2024-06-05] MEDS: VANCOMYCIN/WATER (PEG) 750 MG/150 ML BAG 150 MG IVPB (10:10)
[2024-06-05 10:25] LABS: Lab Add On Test DONE
[2024-06-05 10:47] LABS: Magnesium 1.8 mg/dL (1.8-2.4)
[2024-06-05 11:14] VITALS: BP 100/85; PULSE 77; RESP 15; TEMP 36.9; O2SAT 97
--- NOTE | 2024-06-05 11:50 | W.PM.PROGNOT ---
Date of Service Date of service: 06/05/24 Time of Service: 18:29 Assessment and Plan Assessment and plan (1) Gram-positive bacteremia: Status: Acute Assessment and plan: Continue ceftriaxone BC staph not aureus DC vanco CSF no growth 24h (2) TIA (transient ischemic attack): Status: Acute Assessment and plan: Presenting with expressive aphasia. CT and MRI were negative on admission - will not repeat at this time EEG pending VS out patient Echo completed - negative for shunt or vegetations. Symptoms resolved Remains on ASA and lipitor (3) JORDANA (acute kidney injury): Status: Acute Assessment and plan: Cr 0.8 Renal US reassuring Good oral intake (4) Hyponatremia: Status: Resolved Assessment and plan: Sodium normalized today after hydration. Stop fluid restriction. 141 today Follow (5) Hypomagnesemia: Status: Acute Assessment and plan: mag 1.8 Follow (6) Bipolar disorder: Status: Acute Assessment and plan: Continue home dose Rexulti, lamotrigine Provider at [facility], mentioned that the patient was stable for the first time taking the the Rexulti Lamotrigine and sertraline can cause hyponatremia, but will continue and monitor. hydroxyzine qhs, one time dose of lorazepam now. (7) Suicidal ideation: Status: Resolved Assessment and plan: C/o suicidal ideation today [facility] in Plan to go to [facility] in [place] if accepted Sitter ordered (8) Long QT interval: Status: Acute Assessment and plan: improved 06/03 Subjective Subjective Patient reports: tolerating liquids well, tolerating a regular diet, voiding w/o difficulty, bowel movement and afebrile; denies blood in stool, nausea or shortness of breath Interval history since last seen: Patient complaining of feeling suicidal, after being told she would be discharged tomorrow am. Objective Last Vital Signs Temp 36.9 C 06/05/24 11:14 Pulse 77 06/05/24 11:14 Resp 15 06/05/24 11:14 BP 100/85 06/05/24 11:14 Pulse Ox 97 06/05/24 11:14 Laboratory Results - last 24 hr 06/04/24 06/04/24 06/05/24 21:07 Unknown 05:25 WBC 6.16 RBC 3.40 L Hgb 11.0 L Hct 32.7 L MCV 96 H MCH 32.4 MCHC 33.6 RDW 12.4 Plt Count 117 L MPV 9.9 Immature Gran % 2.1 Neutrophils % 45.0 Lymphocytes % 32.5 Monocytes % 15.1 Eosinophils % 4.7 Basophils % 0.6 Nucleated RBC % 0.0 Absolute Neutrophils 2.77 Absolute Lymphocytes 2.00 Absolute Monocytes 0.93 H Absolute Eosinophils 0.29 Absolute Basophils 0.04 RBC Morphology Normal Sodium 141 Potassium 3.6 Chloride 106 Carbon Dioxide 26.3 Anion Gap 8.7 BUN 7 Creatinine 0.8 Est GFR (CKD-EPI 2020) 80.71 Glucose 93 Calcium 8.3 L Magnesium 1.8 B. burgdorferi (PCR) Cancelled B. mayonii (PCR) Cancelled B.garinii/B.afzelii PCR Cancelled Fluid Comment Cancelled CSF West Nile RNA Cancelled Vancomycin Trough 11.9 Lyme Specimen Source Cancelled HSV Source Description Cancelled HSV I DNA PCR Cancelled HSV II DNA PCR Cancelled Add-On Test Request DONE Time Spent with Patient Time Spent with Patient: 35-49 minutes Time was spent: preparing to see the patient(eg.review tests), ordering medications,tests, procedures, referring, communicating with other health animal caretaker supervisor, indepentently interpreting results, counseling the patient and care coordination
[2024-06-05] MEDS: cefTRIAXone 1 GM/50 ML BAG IVPB (12:08)
[2024-06-05] MEDS: Enoxaparin 40 MG/0.4 ML SYR SC (14:03)
[2024-06-05] MEDS: lamoTRIgine 100 MG TAB 200 MG PO (20:07)
[2024-06-05] MEDS: hydrOXYzine HCL 50 MG TAB PO (20:07)
[2024-06-05] MEDS: Atorvastatin 40 MG TAB 80 MG PO (20:07)
[2024-06-05 20:21] VITALS: TEMP 36.5
[2024-06-05 23:32] VITALS: BP 171/91; PULSE 102; RESP 18; TEMP 36.5; O2SAT 96
[2024-06-05 23:48] VITALS: BP 168/68
[2024-06-06] VITALS (9 sets, daily range): BP systolic 155–198; BP diastolic 76–108; PULSE 55–113; RESP 14–16; TEMP 36.5–37.2; O2SAT 92–96
[2024-06-06] MEDS: Zolpidem 5 MG TAB PO (00:35)
[2024-06-06] MEDS: Acetaminophen 325 MG TAB PO ×2 (05:58→09:48)
[2024-06-06 06:38] LABS: HCT 39.8 % (36.0-46.0); HGB 13.8 g/dL (11.2-15.7); MCH 31.9 pg (27.0-33.0); MCHC 34.7 % (32.0-36.0); MCV 92 fL (80-95); MPV 9.4 fL (8.0-11.0); Platelet Count 161 10^3/uL (130-400); RBC 4.32 10^6/uL (3.93-5.22); RDW 11.5 % (11.7-14.6); RDW-SD 39.2 fL; WBC 7.15 10^3/uL (4.4-10.8)
[2024-06-06 06:46] LABS: Anion Gap 13.6 mmol/L (3-11); BUN 7 mg/dL (7-18); CO2 25.4 mmol/L (21.0-32.0); CREATININE 0.7 mg/dL (0.55-1.02); Calcium 9.4 mg/dL (8.5-10.1); Chloride 99 mmol/L (98-107); Estimated GFR 94.73 (mL/min/1.73m2); Glucose 107 mg/dL (74-106); Magnesium 1.5 mg/dL (1.8-2.4); Potassium 3.3 mmol/L (3.5-5.1); Sodium 138 mmol/L (136-145)
[2024-06-06 07:01] LABS: Absolute Eosinophil Count 0.14 10^3/uL (0.0-0.7); Absolute Lymphocyte Count 2.29 10^3/uL (1.2-3.4); Absolute Neutrophil Count 3.79 10^3/uL (1.2-6.7); Atypical Lymphocytes % 2 %; Bands % 1 %; Diff Comment Manual Differential; Metamyelocytes % 5; Myelocytes % 1; RBC Morphology Normal
[2024-06-06] MEDS: Aspirin 81 MG CHEW PO (08:28)
[2024-06-06] MEDS: Multivitamin w/Minerals TAB 1 TAB PO (08:28)
[2024-06-06] MEDS: Sertraline 100 MG TAB PO (08:28)
[2024-06-06] MEDS: Esomeprazole 40 MG CAPCR PO (08:28)
[2024-06-06] MEDS: POTASSIUM CHLORIDE 10 MEQ/100 ML BAG 100 MEQ IVINF ×2 (09:47→11:57)
[2024-06-06] MEDS: Normal Saline Flush 10 ML SYR IVP ×3 (09:50→20:32)
[2024-06-06] MEDS: MAGNESIUM SULFATE 2 GM/50 ML BAG IVINF (11:10)
--- NOTE | 2024-06-06 11:27 | PDOC.CMPRO ---
Date of service: 06/06/24 Time of Service: 11:27 Care Management Progress Note Progress Note Text Progress Note Text: Per staff, Benita continues to have SI and HI. She has not been engaging with staff today. When CM met with her she answered questions but her responses were minimal. She indicated that she is not feeling well but did not elaborate. She has not eaten anything and has only had water to drink. CM followed up with [facility] to see if a determination had been received from [facility]. No bed offer has been received. No other referrals have been sent but will be today as she remains depressed and is verbalizing SI and HI. A Safety Plan was completed and will limit phone contacts and visitors at this time; Harish requested no visitors. Discharge Potential Discharge Needs: Other (possible transfer to nico-psych facility) Anticipated Barriers to Discharge: Bed availability Patient/Family Education Needs: Review discharge instructions, discuss Ask Me Three Transportation: Other (to be determined by disposition) Plan: [facility] staff sent a referral to [facility] program in [place] for Benita yesterday. CM will follow up with [facility] today to determine status. Clinically, Benita remains stable and is ready for discharge from a medical standpoint. Her WBC and kidney function have returned to normal.Per nursing, the biggest concern, outside of the SI/HI statements, is that Benita is not eating much. She does drink water but has little intake otherwise. CM will follow and continue to assess for discharge planning concerns. SDOH(Care Management) Screening Will the Patient Participate in the Screening?: Unable to obtain
--- NOTE | 2024-06-06 12:17 | W.PM.PROGNOT ---
Date of Service Date of service: 06/06/24 Time of Service: 12:17 Assessment and Plan Assessment and plan (1) Suicidal ideation: Status: Resolved Assessment and plan: Continued suicidal thoughts Plan to go to [facility] in [place] if accepted - pending Continue sitter Continues to hear voices in her head No behaviors noted (2) Gram-positive bacteremia: Status: Acute Assessment and plan: Continue ceftriaxone; WBC decreased 7.15 CSF no growth 48h (3) Bipolar disorder: Status: Acute Assessment and plan: Continue home dose Rexulti, lamotrigine hydroxyzine qhs for agitation (4) Hypokalemia: Status: Acute Assessment and plan: 3.3 Repleted Tele Follow (5) Hypomagnesemia: Status: Acute Assessment and plan: 1.5 - repleted follow (6) Decreased oral intake: Status: Acute Assessment and plan: Nurtrition consult Protein supplement ordered (7) JORDANA (acute kidney injury): Status: Resolved Assessment and plan: Cr 0.7 Renal US reassuring Good oral intake (8) TIA (transient ischemic attack): Status: Resolved Assessment and plan: Remains on ASA and lipitor (9) Long QT interval: Status: Resolved Subjective Subjective Patient reports: no new complaints, tolerating liquids well, tolerating a regular diet, voiding w/o difficulty, bowel movement and afebrile; denies flatus, diarrhea, nausea or vomiting Interval history since last seen: Decreased solid oral intake per nursing, patient denies Exam Narrative Exam Narrative: General: Patient appears w/o distress, mildly anxious but not tearful today, alert and oriented HEENT: Normocephalic, PERRLA Lungs: Clear bilat, Room air, normal effort Heart:Tele SR Regular, S1, S2 no murmur, positive radial and pedal pulses Abdomen: Soft nontender to palpation Extremities: Without clubbing, cyanosis or pitting edema Neuro: Cranial nerves II through XII intact, normal movement and coordination 4 extremities. DTRs 2+ mariah. Normal speech. Psych: No suicidal ideation, mildly anxious affect, continues to hear voices in her head. Objective Last Vital Signs Temp 36.5 C 06/05/24 23:32 Pulse 102 H 06/05/24 23:32 Resp 18 06/05/24 23:32 BP 168/68 H 06/05/24 23:48 Pulse Ox 96 06/05/24 23:32 Laboratory Results - last 24 hr 06/06/24 06:25 WBC 7.15 RBC 4.32 Hgb 13.8 D Hct 39.8 MCV 92 D MCH 31.9 MCHC 34.7 RDW 11.5 L Plt Count 161 MPV 9.4 Immature Gran % 0.0 Neutrophils % 52.0 Band Neutrophils % 1 Lymphocytes % 30.0 Atypical Lymphs % 2 Monocytes % 7.0 Eosinophils % 2.0 Basophils % 0.0 Metamyelocytes % 5 Myelocytes % 1 Nucleated RBC % 0.0 Absolute Neutrophils 3.79 Absolute Lymphocytes 2.29 Absolute Monocytes 0.50 Absolute Eosinophils 0.14 Absolute Basophils 0.00 RBC Morphology Normal Sodium 138 Potassium 3.3 L Chloride 99 Carbon Dioxide 25.4 Anion Gap 13.6 H BUN 7 Creatinine 0.7 Est GFR (CKD-EPI 2020) 94.73 Glucose 107 H Calcium 9.4 Magnesium 1.5 L Time Spent with Patient Time Spent with Patient: 35-49 minutes Time was spent: preparing to see the patient(eg.review tests), ordering medications,tests, procedures, referring, communicating with other health childbirth and infant care teacher, indepentently interpreting results, counseling the patient and care coordination
[2024-06-06] MEDS: cefTRIAXone 1 GM/50 ML BAG IVPB (13:16)
--- NOTE | 2024-06-06 13:32 | W.NUTRFU ---
Date of service: 06/06/24 Time of Service: 12:45 Nutrition Note NOTE: Met with Benita after communication to me that she is not taking adequate po - only water recently. Upon visit, her lunch tray (on safety tray and utensil) with untouched mac and cheese was still waiting. She lay on her side and was not overly communicative outside of head-shakes and brief periodic eye contact. She confirmed low appetite/desire for food at this time. I asked her if she could have anything to eat right now what would that be and she replied just get me out of here - I asked why and she replied because I'm sick. I tried to rationalize a bit and suggested if she try to eat maybe she might start feeling a little bit better and relayed concerns of her not meeting her nutrition needs. Weight looks stable x 1year in documentation hx. Suggested we try some nutrition drinks for supplementing and she did not communicate a response either way. I told her we'd try to put them on twice a day and she can drink them or not, but should give it a try if she can. Nursing staff monitoring her 1:1 stated she is inconsistent - today has been a bad day for intake but reports yesterday eating well at most meals. -Kitchen staff asked to provide ONS at breakfast and dinner meals and encourage po intake when gathering meal orders from patient. Recommendation to consider at this time: - liquid protein concentrate ordered TID for nursing to try and administer. - Consider appetite medication such as Mirtazapine Will be in contact with patient and nursing in monitoring po intake this admission and continue to work at increasing intake of nutrient dense choices. Will consider calorie count if concerns continue to deepen and/or if enteral feeding option becomes a consideration. Time Spent in Nutritional Counseling and Treatment: 10 min
[2024-06-06] MEDS: hydrOXYzine HCL 25 MG TAB PO (16:57)
--- NOTE | 2024-06-06 17:09 | PDOC.CMSAFE ---
Date of service: 06/06/24 Time of Service: 17:09 Care Management Safety Plan Status Status: Voluntary Reason for Wait Reason for Wait: Inpatient Admission Safety Plan Safety Plan: VOLUNTARY FOR INPATIENT PSYCHIATRIC STABILIZATION.? Patient is appropriate in all interactions since arriving at [facility]; Pt has demonstrated appropriate coping and communication skills, has articulated her needs and concerns and is fully engaged during staff interactions. Safety plan has been established with patient, and care team, to adhere to patient goals, identify restrictions based on behavioral status, address nutrition, and determine allowed personal belongings, tools for hygiene and personal care. Determine level of activity including ambulation, level of supervision, visitors, and determine privileges based on behaviors and level of engagement by pt. SAFETY PLAN: 1. Will remain on suicide precautions, in paper clothes 2. Will remain in room under direct supervision of one-on-one staff at all times provided by [employer]; WYATT, MODELING AGENCY MANAGER nurse monitoring. 3. May have paper cups, plates, finger foods as well as a cardboard spoon with which to eat meals. 4. Follow [facility] Management of the Admitted Behavioral Health Patient policy. 5. Comfort bath system, shower permitted with escort at RN discretion. 6. Personal belongings-soft items permitted at RN discretion. 7. Visitors-no visitors at this time at patient's request.. 8. Activities: soft cart items approved per RN discretion. 9.? Bathroom privileges . 10. Phone: limited to cordless phone at RN discretion. Due to VOLUNTARY status, if patient wishes to leave [facility], staff will contact [facility] Crisis Screener ([phone]) and On-Call Corduroy Cutting Supervisor ([phone]) as soon as possible. In the event of elopement, notify [facility] Police ([phone]). Patient is currently voluntarily at [facility] and seeking inpatient admission when a bed becomes available. [facility] Frontline Criminal Justice Faculty will continue seeking placement. Please contact the [employer] Corduroy Cutting Supervisor ([phone]) and [facility] Criminal Justice Faculty ([phone]) for any needed changes in the Safety Plan. Safety plan has been provided to interdepartmental care team.
--- NOTE | 2024-06-06 17:12 | PDOC.CMPRO ---
Date of service: 06/04/24 Time of Service: 17:12 Care Management Progress Note Progress Note Text Progress Note Text: Benita was lying in bed when CM met with her. She again is complaining of a headache. Benita's WBC increased yesterday and she developed JORDANA, cause unknown. She has gram positive cocci in one of her blood cultures and appropriate antibiotics have been ordered. CM will follow. Discharge Potential Discharge Needs: PCP F/U Appt Anticipated Barriers to Discharge: None Identified Patient/Family Education Needs: Review discharge instructions, discuss Ask Me Three Transportation: Other (to be determined by disposition) Plan: Benita's discharge plan is not clear. She had been improving medically however she now has a positive blood culture and JORDANA. CM will continue to support Benita and assess for discharge needs. SDOH(Care Management) Screening Will the Patient Participate in the Screening?: Unable to obtain
[2024-06-06] MEDS: Metoprolol 5 MG/5 ML VIAL IVP (18:08)
--- NOTE | 2024-06-06 18:31 | NUR.NOTE ---
Nursing Note: high BP, provider ordered 5mg metoprolol IVP, which initially helped HR, but BP went higher. HR continues to drop and BP coming down slowly. Provider updated, no new orders at this time.
[2024-06-06] MEDS: Atorvastatin 40 MG TAB 80 MG PO (20:25)
[2024-06-06] MEDS: lamoTRIgine 100 MG TAB 200 MG PO (20:25)
[2024-06-06] MEDS: hydrOXYzine HCL 50 MG TAB PO (20:25)
[2024-06-07] MEDS: Melatonin 3 MG TAB PO (00:18)
[2024-06-07 02:56] VITALS: BP 144/84; PULSE 95; RESP 14; TEMP 36.6; O2SAT 97
[2024-06-07 06:38] LABS: HCT 41.8 % (36.0-46.0); HGB 14.5 g/dL (11.2-15.7); MCH 31.7 pg (27.0-33.0); MCHC 34.7 % (32.0-36.0); MCV 92 fL (80-95); MPV 9.6 fL (8.0-11.0); Platelet Count 152 10^3/uL (130-400); RBC 4.57 10^6/uL (3.93-5.22); RDW 11.9 % (11.7-14.6); RDW-SD 39.6 fL; WBC 8.92 10^3/uL (4.4-10.8)
--- NOTE | 2024-06-07 06:43 | PGE_ITS ---
Date of Service Date of service: 06/07/24 Assessment and Plan Assessment and plan (1) Suicidal ideation: Status: Resolved Assessment and plan: Continued suicidal thoughts Plan to go to [facility] in [place] if accepted - pending Continue sitter Continues to hear voices in her head No behaviors noted (2) Gram-positive bacteremia: Status: Acute Assessment and plan: Continue ceftriaxone; WBC decreased 7.15 CSF no growth 48h (3) Bipolar disorder: Status: Acute Assessment and plan: Continue home dose Rexulti, lamotrigine hydroxyzine qhs for agitation (4) Hypokalemia: Status: Acute Assessment and plan: 3.3 Repleted Tele Follow (5) Hypomagnesemia: Status: Acute Assessment and plan: 1.5 - repleted follow (6) Decreased oral intake: Status: Acute Assessment and plan: Nurtrition consult Protein supplement ordered (7) JORDANA (acute kidney injury): Status: Resolved Assessment and plan: Cr 0.7 Renal US reassuring Good oral intake (8) TIA (transient ischemic attack): Status: Resolved Assessment and plan: Remains on ASA and lipitor (9) Long QT interval: Status: Resolved Objective Last Vital Signs Temp 36.6 C 06/07/24 02:56 Pulse 95 H 06/07/24 02:56 Resp 14 06/07/24 02:56 BP 144/84 H 06/07/24 02:56 Pulse Ox 97 06/07/24 02:56 Laboratory Results - last 24 hr 06/06/24 06:25 WBC 7.15 RBC 4.32 Hgb 13.8 D Hct 39.8 MCV 92 D MCH 31.9 MCHC 34.7 RDW 11.5 L Plt Count 161 MPV 9.4 Immature Gran % 0.0 Neutrophils % 52.0 Band Neutrophils % 1 Lymphocytes % 30.0 Atypical Lymphs % 2 Monocytes % 7.0 Eosinophils % 2.0 Basophils % 0.0 Metamyelocytes % 5 Myelocytes % 1 Nucleated RBC % 0.0 Absolute Neutrophils 3.79 Absolute Lymphocytes 2.29 Absolute Monocytes 0.50 Absolute Eosinophils 0.14 Absolute Basophils 0.00 RBC Morphology Normal Sodium 138 Potassium 3.3 L Chloride 99 Carbon Dioxide 25.4 Anion Gap 13.6 H BUN 7 Creatinine 0.7 Est GFR (CKD-EPI 2020) 94.73 Glucose 107 H Calcium 9.4 Magnesium 1.5 L
[2024-06-07 06:57] LABS: Anion Gap 11.7 mmol/L (3-11); BUN 16 mg/dL (7-18); CO2 23.3 mmol/L (21.0-32.0); CREATININE 0.8 mg/dL (0.55-1.02); Calcium 9.3 mg/dL (8.5-10.1); Chloride 100 mmol/L (98-107); Estimated GFR 80.71 (mL/min/1.73m2); Glucose 196 mg/dL (74-106); Magnesium 1.7 mg/dL (1.8-2.4); Potassium 3.3 mmol/L (3.5-5.1); Sodium 135 mmol/L (136-145)
[2024-06-07 07:34] LABS: Absolute Basophil Count 0.18 10^3/uL (0.0-0.2); Absolute Eosinophil Count 0.18 10^3/uL (0.0-0.7); Absolute Lymphocyte Count 3.12 10^3/uL (1.2-3.4); Absolute Monocyte Count 0.45 10^3/uL (0.1-0.8); Absolute Neutrophil Count 4.64 10^3/uL (1.2-6.7); Atypical Lymphocytes % 1 %; Metamyelocytes % 4
[2024-06-07 07:35] LABS: Diff Comment Manual Differential; RBC Morphology Normal
[2024-06-07] MEDS: Normal Saline Flush 10 ML SYR IVP ×2 (07:36→10:36)
[2024-06-07 07:38] VITALS: BP 155/102; PULSE 96; RESP 16; TEMP 36.5
[2024-06-07] MEDS: lamoTRIgine 100 MG TAB PO (07:39)
[2024-06-07] MEDS: Sertraline 100 MG TAB PO (07:39)
[2024-06-07] MEDS: Multivitamin w/Minerals TAB 1 TAB PO (07:39)
[2024-06-07] MEDS: Protein Nutritional Supplement 16 GM 1 OUNCE PACKET PO ×3 (07:40→20:16)
[2024-06-07] MEDS: Aspirin 81 MG CHEW PO (07:40)
[2024-06-07] MEDS: Esomeprazole 40 MG CAPCR PO (07:40)
[2024-06-07] MEDS: amLODIPine 5 MG TAB PO (07:45)
[2024-06-07] MEDS: POTASSIUM CHLORIDE 20 MEQ/100 ML BAG 50 MEQ IVINF ×2 (10:37→13:45)
[2024-06-07] MEDS: MAGNESIUM SULFATE 2 GM/50 ML BAG IVINF (11:31)
[2024-06-07 12:46] VITALS: BP 135/102; PULSE 102; RESP 17; TEMP 35.6; O2SAT 94
[2024-06-07] MEDS: cefTRIAXone 1 GM/50 ML BAG IVPB (13:13)
[2024-06-07] MEDS: Enoxaparin 40 MG/0.4 ML SYR SC (13:34)
[2024-06-07 14:23] LABS: Source Nasal/Nares
[2024-06-07 14:37] LABS: Potassium 3.7 mmol/L (3.5-5.1)
[2024-06-07 14:39] LABS: Magnesium 2.3 mg/dL (1.8-2.4)
[2024-06-07 14:56] LABS: COVID-19 PCR Negative (Negative)
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
--- NOTE | 2024-06-07 16:03 | CMSP_ITS ---
Date of service: 06/07/24 Time of Service: 16:04 Care Management Safety Plan Status Status: Voluntary Reason for Wait Reason for Wait: Inpatient Admission Safety Plan Safety Plan: VOLUNTARY FOR INPATIENT PSYCHIATRIC STABILIZATION.? Patient is appropriate in all interactions since arriving at [facility]; Pt has demonstrated appropriate coping and communication skills, has articulated her needs and concerns and is fully engaged during staff interactions. Safety plan has been established with patient, and care team, to adhere to patient goals, identify restrictions based on behavioral status, address nutrition, and determine allowed personal belongings, tools for hygiene and personal care. Determine level of activity including ambulation, level of supervision, visitors, and determine privileges based on behaviors and level of engagement by pt. SAFETY PLAN: 1. Will remain on suicide precautions, in paper clothes 2. Will remain in room under direct supervision of one-on-one staff at all times provided by [employer]; WYATT, [employer]BA BUSINESS DEVELOPMENT OFFICER border police. 3. May have paper cups, plates, finger foods as well as a cardboard spoon with which to eat meals. 4. Follow [facility] Management of the Admitted Behavioral Health Patient policy. 5. Comfort bath system, shower permitted with escort at RN discretion. 6. Personal belongings-soft items permitted at RN discretion. 7. Visitors- supportive visitors, at RN discretion. 8. Activities: soft cart items approved per RN discretion. 9.? Bathroom privileges . 10. Phone: limited to cordless phone at RN discretion. Due to VOLUNTARY status, if patient wishes to leave [facility], staff will contact [facility] Crisis Screener ([phone]) and On-Call Shrink Pit Supervisor ([phone]) as soon as possible. In the event of elopement, notify [facility] Police ([phone]).
--- NOTE | 2024-06-07 16:24 | PDOC.CMPRO ---
Date of service: 06/07/24 Time of Service: 16:24 Care Management Progress Note Progress Note Text Progress Note Text: Benita was lying in bed when CM met with her. She appeared paranoid, as she does not know this music writer. CM discussed her potential transfer to [facility], and she stated that she wants to go there, but she was not willing to sign the consent form when it was presented by this music writer. Later, her RN discussed it with her, and she signed the consent form. She was accepted for transfer, but CM was not able to secure transport, as it was late afternoon. She will discharge tomorrow morning, and will transport via EMS to [facility]. CM will continue to follow. Discharge Potential Discharge Needs: Other (geriatric psych facility) Anticipated Barriers to Discharge: Other (transport barrier) Patient/Family Education Needs: Review discharge instructions, discuss Ask Me Three Transportation: EMS Plan: Benita will transfer to [facility] tomorrow via EMS, coordinated by CM, where she will have inpatient psychiatric treatment. CM will continue to follow. SDOH(Care Management) Screening Will the Patient Participate in the Screening?: Unable to obtain
[2024-06-07 16:43] VITALS: BP 152/90; PULSE 97; RESP 17; TEMP 37.1; O2SAT 95
--- NOTE | 2024-06-07 17:09 | W.PM.PROGNOT ---
Date of Service Date of service: 06/07/24 Time of Service: 17:09 Assessment and Plan Assessment and plan (1) Suicidal ideation: Status: Resolved Assessment and plan: Continued suicidal and paranoids thoughts- easily redirected Plan to go to [facility] in [place] accepted - leaving in AM d/t transportation Continue sitter Continues to report auditory hallucinations No behaviors noted (2) Gram-positive bacteremia: Status: Acute Assessment and plan: Continue ceftriaxone; WBC decreased Staph epidermis , no fever- most likely a contaminant CSF no growth (3) Bipolar disorder: Status: Acute Assessment and plan: On home dose Rexulti, lamotrigine Continue hydroxyzine qhs for agitation (4) Hypokalemia: Status: Acute Assessment and plan: K 3.3 Repleted this PM 3.7 Tele Follow (5) Hypomagnesemia: Status: Acute Assessment and plan: 1.7 - repleted and Mg at 2.3 this PM (6) Decreased oral intake: Status: Acute Assessment and plan: Nurtrition consult- needs cues to take supplements Continue protein supplements (7) Hypertension: Status: Resolved Assessment and plan: Was on lisinopril 40 mg daily at home - stopped on admit With HTN and anxiety Lopressor 25 mg Q6 PO ordered - d/c ealier inthe stay d/t bradycardia and hypotension- now attempting a decreased dose of lopressor 12.5 mg oral as patient responded well to IVP lopressor 5 mg last evening for HR 113 and SBP 190 - will continue daily if tolerated Continue amlodipine 5mg daily Will add lisinopril 2.5 mg BID starting at HS Qualifiers: Hypertension type: primary hypertension Qualified Code(s): I10 - Essential (primary) hypertension (8) JORDANA (acute kidney injury): Status: Resolved Assessment and plan: Stable Cr 0.7 Renal was US reassuring Good oral intake- with cues (9) TIA (transient ischemic attack): Status: Resolved Assessment and plan: Remains on ASA and lipitor Imaging - negative (10) Long QT interval: Status: Resolved Assessment and plan: QT 0.368, QTC 0.[address] Patino Subjective Subjective Patient reports: tolerating liquids well, tolerating a regular diet, voiding w/o difficulty and nausea; denies diarrhea, vomiting, shortness of breath or fever Exam Narrative Exam Narrative: General: Patient appears w/o distress, alert and oriented at least to person and place, distracted like thinking before answering questions, afraid of being harm HEENT: Normocephalic, PERRLA on ambient , extraocular move intact Lungs:CTAB Heart:Tele SR Regular, S1, S2 no murmur, positive radial and pedal pulses Abdomen: Soft nontender to palpation, bowel sounds are present in all quadrants. Extremities: Without clubbing, cyanosis or pitting edema., strength 5/5 Neuro: Cranial nerves II through XII grossly intact, no focal deficits, appears delayed in speech Psych: No suicidal ideation, flat affect, afraid of being poisoned but easily reoriented Psych Mental Status: mental status grossly normal Speech and Movement: slowed movement Mood: anxious mood Affect: anxious affect Objective Last Vital Signs Temp 37.1 C 06/07/24 16:43 Pulse 97 H 06/07/24 16:43 Resp 17 06/07/24 16:43 BP 152/90 H 06/07/24 16:43 Pulse Ox 95 06/07/24 16:43 Laboratory Results - last 24 hr 06/07/24 06/07/24 06/07/24 06:30 14:10 14:15 WBC 8.92 RBC 4.57 Hgb 14.5 Hct 41.8 MCV 92 MCH 31.7 MCHC 34.7 RDW 11.9 Plt Count 152 MPV 9.6 Immature Gran % 0.0 Neutrophils % 52.0 Lymphocytes % 34.0 Atypical Lymphs % 1 Monocytes % 5.0 Eosinophils % 2.0 Basophils % 2.0 Metamyelocytes % 4 Nucleated RBC % 0.0 Absolute Neutrophils 4.64 Absolute Lymphocytes 3.12 Absolute Monocytes 0.45 Absolute Eosinophils 0.18 Absolute Basophils 0.18 RBC Morphology Normal Sodium 135 L Potassium 3.3 L 3.7 Chloride 100 Carbon Dioxide 23.3 Anion Gap 11.7 H BUN 16 Creatinine 0.8 Est GFR (CKD-EPI 2020) 80.71 Glucose 196 H Calcium 9.3 Magnesium 1.7 L 2.3 COVID-19 Source Nasal/Nares SARS-CoV-2 (PCR) Negative Time Spent with Patient Time Spent with Patient: >50 minutes Time was spent: preparing to see the patient(eg.review tests), obtaining and/or reviewing separately otained hiistory, ordering medications,tests, procedures, referring, communicating with other health long term care administrator, indepentently interpreting results, counseling the patient and care coordination
[2024-06-07] MEDS: Metoprolol 12.5 MG TAB PO (18:00)
[2024-06-07 19:06] VITALS: BP 139/81; PULSE 83; TEMP 36.7
[2024-06-07] MEDS: Atorvastatin 40 MG TAB 80 MG PO (20:15)
[2024-06-07] MEDS: hydrOXYzine HCL 50 MG TAB PO (20:15)
[2024-06-07] MEDS: lamoTRIgine 100 MG TAB 200 MG PO (20:15)
[2024-06-07] MEDS: Lisinopril 2.5 MG TAB PO (20:15)
[2024-06-07 23:20] VITALS: BP 120/81; PULSE 75; RESP 14; TEMP 36.5; O2SAT 92
[2024-06-08 07:04] VITALS: BP 124/86; PULSE 94; RESP 17; TEMP 36.8; O2SAT 94
[2024-06-08] MEDS: Esomeprazole 40 MG CAPCR PO (07:25)
[2024-06-08] MEDS: Protein Nutritional Supplement 16 GM 1 OUNCE PACKET PO (07:26)
[2024-06-08] MEDS: lamoTRIgine 100 MG TAB PO (07:26)
[2024-06-08] MEDS: Aspirin 81 MG CHEW PO (07:26)
[2024-06-08] MEDS: Lisinopril 2.5 MG TAB PO (07:26)
[2024-06-08] MEDS: Multivitamin w/Minerals TAB 1 TAB PO (07:26)
[2024-06-08] MEDS: Sertraline 100 MG TAB PO (07:26)
[2024-06-08] MEDS: amLODIPine 5 MG TAB PO (07:26)
[2024-06-08] MEDS: Metoprolol CR 25 MG TABCR 12.5 MG PO (09:46)
--- NOTE | 2024-06-08 13:49 | CMDISCH_ITS ---
Date of service: 06/08/24 Time of Service: 13:49 LACE Index Scoring Tool Questions: Length of Stay (in days): 7 - 13 Was the patient admitted via the E.D.?: Yes Comorbidities: Cerebrovascular Disease E.D. Visits: 4 Answers: Total Score: 13 Risk of Readmission: High Risk Care Management Discharge Plan Reason for Hospitalization: TIA with aphasia, hypertension Discharge Plan: Benita transferred to [facility] today for inpatient psychiatric treatment. She transported via [facility], coordinated by CM. She will follow up with her PCP and her discharge plan of care once she is ready to return to the community. Her discharge planning will continue at [facility]; the plan is for her to return home with a resumption of community supports. Patient/Family Education Needs: Review discharge instructions and limitations, discussion of self care needs including ask me three. Services Needed at Discharge: Psychiatric Facility ([facility] facility) and Transportation ([facility]) SDOH Health Related Social Needs: No Data to Display
== END 2024-06-08 10:14 | disposition home or self-care (01) | DRG 69 ==
LOC: ER 23:35 → MS 05-31 11:13
PROVIDERS: Emergency Medicine; Family Medicine; Nurse Practitioner Acute Care; Nurse Practitioner Family; Admitting Provider Family Medicine; Emergency Provider Emergency Medicine; PCP Nurse Practitioner Family; Visit Provider Family Medicine
DX: G45.9 Transient cerebral ischemic attack, unspecified (principal); R47.01 Aphasia; E87.1 Hypo-osmolality and hyponatremia; R45.851 Suicidal ideations; N17.9 Acute kidney failure, unspecified; K56.699 Other intestinal obstruction unspecified as to partial versus complete obstruction; R78.81 Bacteremia; F31.9 Bipolar disorder, unspecified; I10 Essential (primary) hypertension; E78.2 Mixed hyperlipidemia; E83.42 Hypomagnesemia; D72.829 Elevated white blood cell count, unspecified; G43.909 Migraine, unspecified, not intractable, without status migrainosus; R94.31 Abnormal electrocardiogram [ECG] [EKG]; E87.6 Hypokalemia; Z79.899 Other long term (current) drug therapy; W19.XXXD Unspecified fall, subsequent encounter; K22.70 Barrett's esophagus without dysplasia; K57.30 Diverticulosis of large intestine without perforation or abscess without bleeding; E78.5 Hyperlipidemia, unspecified; M47.816 Spondylosis without myelopathy or radiculopathy, lumbar region; I95.9 Hypotension, unspecified
CPT/HCPCS: 36410; 00123; 36415; 62270; 70496; 70498; 76770; 76942; 80048; 80053; 80307; 82945; 83935; 85027; 87040; 87077; 87635; 87637; 89050; 89051; 93005; 96361; 96365; 96366; 96367; 96372; 96375; 96376; 97161; 99285; J1650; 70450; 70551; 71045; 71046; 80202; 80320; 80329; 81003; 81015; 82140; 83735; 84132; 84157; 84300; 84443; 84484; 85025; 86140; 87070; 87205; 92523; 93010; 93306; 99223; 99232; 99233; 99239; J0696; J0780; J1644; J1885; J3372; J3475; J3480; J3490

== ENCOUNTER 2024-09-06 12:25 | Emergency (ER) | payer MEDICARE, MEDICAID, SELFPAY ==
[2024-09-06] VITALS (30 sets, daily range): BP systolic 128–219; BP diastolic 53–145; PULSE 63–93; RESP 14–29; TEMP 36.3; O2SAT 89–96
--- NOTE | 2024-09-06 12:34 | W.ED.GENAD ---
Discharge Plan Discharge Details Primary Care Provider: Cathie Strange ED Provider: Yesica Woodall Home Meds and New Rx's Prescriptions: No Action trazodone 100 mg tablet 200 mg PO QHS lamotrigine 200 mg tablet 200 mg PO QHS lamotrigine 100 mg tablet 100 mg PO QAM magnesium hydroxide [Estevez Milk of Magnesia] 400 mg/5 mL suspension 5 ml PO DAILY PRN diclofenac sodium [Voltaren Arthritis Pain] 1 % gel 2 g topical QID PRN (Reason: joint pain) Qty: 100 1RF Rx Instructions: apply to single elbow, wrist or hand; for hand includes palm/fingers/back of hand esomeprazole magnesium [Nexium] 40 mg capsule,delayed release(DR/EC) 40 mg PO DAILY ondansetron HCl 4 mg tablet 4 mg PO Q8H PRN (Reason: nausea and vomiting) Qty: 20 0RF atorvastatin [Lipitor] 10 mg tablet 10 mg PO QHS diazepam 2 mg tablet 4 mg PO BID cyclobenzaprine 5 mg tablet 5 mg PO TID PRN (Reason: muscle spasm) Qty: 30 0RF koymohimihbd-sexu-dotuq acid 18-400 mg-mcg Tablet 1 tab PO DAILY sertraline 100 mg tablet 100 mg PO DAILY Rexulti 2 mg tablet 2 mg PO DAILY Qty: 30 0RF acetaminophen 325 mg Tablet 650 mg PO Q6H PRNQty: 40 0RF amlodipine 5 mg Tablet 5 mg PO DAILY Qty: 30 0RF docusate sodium [Colace] 100 mg Capsule 100 mg PO TID PRN PRNQty: 90 0RF aspirin [Children's Aspirin] 81 mg Tablet,Chewable 81 mg PO DAILY Qty: 30 0RF hydroxyzine HCl 50 mg Tablet 50 mg PO HS Qty: 30 0RF melatonin 3 mg Tablet 6 mg PO HS Qty: 60 0RF Phlexy-Vits 15 mg- 700 mcg Powder In Packet 1 packet PO TID Qty: 30 0RF ibuprofen 200 mg capsule 400 mg PO Q6H PRNQty: 240 0RF metoprolol succinate 25 mg tablet extended release 24 hr 12.5 mg PO DAILY Qty: 15 0RF HPI General Date/Time Provider Initiated Documentation: 09/06/24 12:33. Related Data Home Medications ?Medication ?Instructions ?Recorded ?Confirmed multivitamin-ferrous 1 tab PO DAILY 02/10/22 05/30/24 fumarate-folic acid 18 mg-400 mcg tablet trazodone 100 mg tablet 200 mg PO QHS 04/18/23 05/30/24 sertraline 100 mg tablet 100 mg PO DAILY 09/30/23 05/30/24 diclofenac sodium 1 % topical gel 2 g topical QID PRN joint pain 10/04/23 05/30/24 (Voltaren Arthritis Pain) #100 grams lamotrigine 100 mg tablet 100 mg PO QAM 10/21/23 05/30/24 lamotrigine 200 mg tablet 200 mg PO QHS 10/21/23 05/30/24 esomeprazole magnesium 40 mg 40 mg PO DAILY 12/30/23 05/30/24 capsule,delayed release (Nexium) magnesium hydroxide 400 mg/5 mL 5 ml PO DAILY PRN 03/28/24 05/30/24 oral suspension (Estevez Milk of [employer]) ondansetron HCl 4 mg tablet 4 mg PO Q8H PRN nausea and 05/24/24 05/30/24 vomiting #20 tabs brexpiprazole 2 mg tablet (Rexulti) 2 mg PO DAILY #30 tabs 06/04/24 acetaminophen 325 mg tablet 650 mg (2 x 325 mg) PO Q6H PRN #40 06/07/24 tabs amlodipine 5 mg tablet 5 mg PO DAILY #30 tabs 06/07/24 aspirin 81 mg chewable tablet 81 mg PO DAILY #30 tabs 06/07/24 (Children's Aspirin) docusate sodium 100 mg capsule 100 mg PO TID PRN PRN #90 caps 06/07/24 (Colace) hydroxyzine HCl 50 mg tablet 50 mg PO HS #30 tabs 06/07/24 ibuprofen 200 mg capsule 400 mg (2 x 200 mg) PO Q6H PRN 06/07/24 #240 caps melatonin 3 mg tablet 6 mg (2 x 3 mg) PO HS Abdominal 06/07/24 Pain #60 tabs multivit with mins-ferrous sulf 15 1 packet PO TID #30 ea 06/07/24 mg-folic 700 mcg oral powder packet (Phlexy-Vits) metoprolol succinate 25 mg 12.5 mg (1/2 x 25 mg) PO DAILY #15 06/08/24 tablet,extended release 24 hr tabs atorvastatin 10 mg tablet (Lipitor) 10 mg PO QHS 06/18/24 diazepam 2 mg tablet 4 mg PO BID 07/19/24 cyclobenzaprine 5 mg tablet 5 mg PO TID PRN muscle spasm #30 08/01/24 tabs Previous Rx's ?Medication ?Instructions ?Recorded diclofenac sodium 1 % topical gel 2 g topical QID PRN joint pain 10/04/23 (Voltaren Arthritis Pain) #100 grams ondansetron HCl 4 mg tablet 4 mg PO Q8H PRN nausea and 05/24/24 vomiting #20 tabs brexpiprazole 2 mg tablet (Rexulti) 2 mg PO DAILY #30 tabs 06/04/24 acetaminophen 325 mg tablet 650 mg (2 x 325 mg) PO Q6H PRN #40 06/07/24 tabs amlodipine 5 mg tablet 5 mg PO DAILY #30 tabs 06/07/24 aspirin 81 mg chewable tablet 81 mg PO DAILY #30 tabs 06/07/24 (Children's Aspirin) docusate sodium 100 mg capsule 100 mg PO TID PRN PRN #90 caps 06/07/24 (Colace) hydroxyzine HCl 50 mg tablet 50 mg PO HS #30 tabs 06/07/24 ibuprofen 200 mg capsule 400 mg (2 x 200 mg) PO Q6H PRN 06/07/24 #240 caps melatonin 3 mg tablet 6 mg (2 x 3 mg) PO HS Abdominal 06/07/24 Pain #60 tabs multivit with mins-ferrous sulf 15 1 packet PO TID #30 ea 06/07/24 mg-folic 700 mcg oral powder packet (Phlexy-Vits) metoprolol succinate 25 mg 12.5 mg (1/2 x 25 mg) PO DAILY #15 06/08/24 tablet,extended release 24 hr tabs cyclobenzaprine 5 mg tablet 5 mg PO TID PRN muscle spasm #30 08/01/24 tabs Allergies Allergy/AdvReac Type Severity Reaction Status Date / Time latex AdvReac Severe Skin Rash Verified 09/06/24 12:35 amoxicillin (From Augmentin) AdvReac Agitation Verified 09/06/24 12:35 azithromycin (From Zithromax) AdvReac headache, Verified 09/06/24 12:35 hearing loss,double vision, DAVILA ciprofloxacin (From Cipro) AdvReac Dizziness/L Verified 09/06/24 12:35 ightheade clavulanic acid (From AdvReac Agitation Verified 09/06/24 12:35 Augmentin) codeine AdvReac GI upset Verified 09/06/24 12:35 doxycycline AdvReac Other (See Verified 09/06/24 12:35 Comment) metronidazole (From Flagyl) AdvReac Agitation Verified 09/06/24 12:35 Penicillins AdvReac Other (See Verified 09/06/24 12:35 Comment) Sulfa (Sulfonamide AdvReac anxious Verified 09/06/24 12:35 Antibiotics) General MARIAM: 3 Medical Decision Making Quality:SDOH Health Related Social Needs: No Data to Display [facility] All Active Problems (Updated 06/09/24 @ 00:01 by PAM LOMAS) Gram-positive bacteremia (Acute) Anxiety (Acute) Bipolar disorder (Acute) Bipolar I disorder (Chronic) [facility] Psychiatry Diverticular stricture (Chronic) Followed by [facility] Colon stricture (Chronic) Followed by [facility] Cramer's esophagus (Chronic) On 2009 EGD, not on 2012 EGD, on 2023 EGD Gastroesophageal reflux disease with esophagitis (Chronic) Diverticulosis of colon (Chronic) Chronic diarrhea (Chronic) Hyperlipidemia (Chronic) Hiatal hernia (Chronic) Migraine (Chronic) 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) Glaucoma (Chronic) Allergic rhinitis (Chronic) Medical History TMJ (temporomandibular joint disorder) Diverticulitis of sigmoid colon Multiple episodes, seeing [facility] Diabetes mellitus Surgical History S/P cholecystectomy S/P BSO (bilateral salpingo-oophorectomy) (07/03/15) Status post foot surgery History of total vaginal hysterectomy (TVH) (07/03/15) With cystoscopy and rectocele repair History of esophagogastroduodenoscopy History of bilateral ligation of fallopian tubes Family History Mother Stroke Lung cancer Hypertension Father Heart disease Hyperlipidemia Hypertension Brother Heart disease DOUBLE BYPASS AGE 48 (NON SMOKER) Hyperlipidemia Son Depression Daughter Depression Maternal Grandfather Lung cancer Maternal Grandmother Heart disease Myocardial infarction Paternal Grandfather No problems noted. Paternal Grandmother Diabetes Social History Smoking/Tobacco Use Status: Former Tobacco Use Quit Date: 09/05/77 Smoking risk assessment performed?: Yes Alcohol Intake: never Drug use: Never Substance use type: does not use Housing: house Do you feel safe at home: Yes Do you feel safe in your relationship?: Yes Additional Social history: lives alone
--- NOTE | 2024-09-06 12:48 | ED.GENADUL_ITS ---
Discharge Plan Disposition Patient Disposition: Home Condition: Stable Discharge Details Clinical Impression: Hypertension, Migraine, Hypomagnesemia, Withdrawal complaint Primary Care Provider: Cathie Strange ED Provider: Yesica Woodall Home Meds and New Rx's Prescriptions: New metoprolol succinate 25 mg tablet extended release 24 hr 25 mg PO DAILY Qty: 30 0RF Continued trazodone 100 mg tablet 200 mg PO QHS lamotrigine 200 mg tablet 200 mg PO QHS lamotrigine 100 mg tablet 100 mg PO QAM magnesium hydroxide [Estevez Milk of Magnesia] 400 mg/5 mL suspension 5 ml PO DAILY PRN diclofenac sodium [Voltaren Arthritis Pain] 1 % gel 2 g topical QID PRN (Reason: joint pain) Qty: 100 1RF Rx Instructions: apply to single elbow, wrist or hand; for hand includes palm/fingers/back of hand esomeprazole magnesium [Nexium] 40 mg capsule,delayed release(DR/EC) 40 mg PO DAILY ondansetron HCl 4 mg tablet 4 mg PO Q8H PRN (Reason: nausea and vomiting) Qty: 20 0RF atorvastatin [Lipitor] 10 mg tablet 10 mg PO QHS diazepam 2 mg tablet 4 mg PO BID cyclobenzaprine 5 mg tablet 5 mg PO TID PRN (Reason: muscle spasm) Qty: 30 0RF swrwidqkpxxp-nwir-zcnob acid 18-400 mg-mcg Tablet 1 tab PO DAILY sertraline 100 mg tablet 100 mg PO DAILY acetaminophen 325 mg Tablet 650 mg PO Q6H PRNQty: 40 0RF amlodipine 5 mg Tablet 5 mg PO DAILY Qty: 30 0RF docusate sodium [Colace] 100 mg Capsule 100 mg PO TID PRN PRNQty: 90 0RF aspirin [Children's Aspirin] 81 mg Tablet,Chewable 81 mg PO DAILY Qty: 30 0RF hydroxyzine HCl 50 mg Tablet 50 mg PO HS Qty: 30 0RF melatonin 3 mg Tablet 6 mg PO HS Qty: 60 0RF Phlexy-Vits 15 mg- 700 mcg Powder In Packet 1 packet PO TID Qty: 30 0RF ibuprofen 200 mg capsule 400 mg PO Q6H PRNQty: 240 0RF metoprolol succinate 25 mg tablet extended release 24 hr 12.5 mg PO DAILY Qty: 15 0RF Rexulti 2 mg tablet 3 mg PO DAILY Discharge Instructions Instructions: High Blood Pressure ED Additional Instructions: Your blood pressure was notably high when you came in. Please take the medication, metoprolol, as prescribed. Your next dose will be due tomorrow morning. This has been sent to your pharmacy. Regards to your headache, please continue with hydration. You may use Tylenol and ibuprofen as needed for discomfort. Regarding your benzodiazepine withdrawal, your primary care and mental health provider are working together to try and come up with an appropriate plan and continue to manage this moving forward. Please call their offices to discuss this further. If you develop any new or worsening symptoms please seek care urgently once again. Referrals: Cathie Strange NP [Primary Care Provider] - [facility] General Date/Time Provider Initiated Documentation: 09/06/24 12:33 . Limitations to Documentation: no limitations . Information obtained by: patient and RN notes reviewed . History of Present Illness 69 year old F presents to the emergency department with the chief complaint of HTN, migraine, withdrawal symptoms, described as moderate and similar to prior episodes, with intensity rated at 4 (reports similar to previous migraines but not as severe). Patient started experiencing this unknown and it has been intermittent. No relieving factors improve symptom(s), No exacerbating factors reported . Patient notes headaches; denies confusion, chest pain, cough, diaphoresis, fever/chills, loss of appetite, malaise, nausea/vomiting, rash, shortness of breath, syncope and weakness. Patient did receive the following treatments prior to arrival, none Related Data Home Medications ?Medication ?Instructions ?Recorded ?Confirmed multivitamin-ferrous 1 tab PO DAILY 02/10/22 09/06/24 fumarate-folic acid 18 mg-400 mcg tablet trazodone 100 mg tablet 200 mg PO QHS 04/18/23 09/06/24 sertraline 100 mg tablet 100 mg PO DAILY 09/30/23 09/06/24 diclofenac sodium 1 % topical gel 2 g topical QID PRN joint pain 10/04/23 09/06/24 (Voltaren Arthritis Pain) #100 grams lamotrigine 100 mg tablet 100 mg PO QAM 10/21/23 09/06/24 lamotrigine 200 mg tablet 200 mg PO QHS 10/21/23 09/06/24 esomeprazole magnesium 40 mg 40 mg PO DAILY 12/30/23 09/06/24 capsule,delayed release (Nexium) magnesium hydroxide 400 mg/5 mL 5 ml PO DAILY PRN 03/28/24 09/06/24 oral suspension (Estevez Milk of Magnesia) ondansetron HCl 4 mg tablet 4 mg PO Q8H PRN nausea and 05/24/24 09/06/24 vomiting #20 tabs acetaminophen 325 mg tablet 650 mg (2 x 325 mg) PO Q6H PRN #40 06/07/24 09/06/24 tabs amlodipine 5 mg tablet 5 mg PO DAILY #30 tabs 06/07/24 09/06/24 aspirin 81 mg chewable tablet 81 mg PO DAILY #30 tabs 06/07/24 09/06/24 (Children's Aspirin) docusate sodium 100 mg capsule 100 mg PO TID PRN PRN #90 caps 06/07/24 09/06/24 (Colace) hydroxyzine HCl 50 mg tablet 50 mg PO HS #30 tabs 06/07/24 09/06/24 ibuprofen 200 mg capsule 400 mg (2 x 200 mg) PO Q6H PRN 06/07/24 09/06/24 #240 caps melatonin 3 mg tablet 6 mg (2 x 3 mg) PO HS Abdominal 06/07/24 09/06/24 Pain #60 tabs multivit with mins-ferrous sulf 15 1 packet PO TID #30 ea 06/07/24 09/06/24 mg-folic 700 mcg oral powder packet (Phlexy-Vits) metoprolol succinate 25 mg 12.5 mg (1/2 x 25 mg) PO DAILY #15 06/08/24 09/06/24 tablet,extended release 24 hr tabs atorvastatin 10 mg tablet (Lipitor) 10 mg PO QHS 06/18/24 09/06/24 diazepam 2 mg tablet 4 mg PO BID 07/19/24 09/06/24 cyclobenzaprine 5 mg tablet 5 mg PO TID PRN muscle spasm #30 08/01/24 09/06/24 tabs brexpiprazole 2 mg tablet (Rexulti) 3 mg PO DAILY 09/06/24 09/06/24 metoprolol succinate 25 mg 25 mg PO DAILY #30 tabs 09/06/24 tablet,extended release 24 hr Previous Rx's ?Medication ?Instructions ?Recorded diclofenac sodium 1 % topical gel 2 g topical QID PRN joint pain 10/04/23 (Voltaren Arthritis Pain) #100 grams ondansetron HCl 4 mg tablet 4 mg PO Q8H PRN nausea and 05/24/24 vomiting #20 tabs acetaminophen 325 mg tablet 650 mg (2 x 325 mg) PO Q6H PRN #40 06/07/24 tabs amlodipine 5 mg tablet 5 mg PO DAILY #30 tabs 06/07/24 aspirin 81 mg chewable tablet 81 mg PO DAILY #30 tabs 06/07/24 (Children's Aspirin) docusate sodium 100 mg capsule 100 mg PO TID PRN PRN #90 caps 06/07/24 (Colace) hydroxyzine HCl 50 mg tablet 50 mg PO HS #30 tabs 06/07/24 ibuprofen 200 mg capsule 400 mg (2 x 200 mg) PO Q6H PRN 06/07/24 #240 caps melatonin 3 mg tablet 6 mg (2 x 3 mg) PO HS Abdominal 06/07/24 Pain #60 tabs multivit with mins-ferrous sulf 15 1 packet PO TID #30 ea 06/07/24 mg-folic 700 mcg oral powder packet (Phlexy-Vits) metoprolol succinate 25 mg 12.5 mg (1/2 x 25 mg) PO DAILY #15 06/08/24 tablet,extended release 24 hr tabs cyclobenzaprine 5 mg tablet 5 mg PO TID PRN muscle spasm #30 08/01/24 tabs metoprolol succinate 25 mg 25 mg PO DAILY #30 tabs 09/06/24 tablet,extended release 24 hr Allergies Allergy/AdvReac Type Severity Reaction Status Date / Time latex AdvReac Severe Skin Rash Verified 09/06/24 12:35 amoxicillin (From Augmentin) AdvReac Agitation Verified 09/06/24 12:35 azithromycin (From Zithromax) AdvReac headache, Verified 09/06/24 12:35 hearing loss,double vision, DAVILA ciprofloxacin (From Cipro) AdvReac Dizziness/L Verified 09/06/24 12:35 ightheade clavulanic acid (From AdvReac Agitation Verified 09/06/24 12:35 Augmentin) codeine AdvReac GI upset Verified 09/06/24 12:35 doxycycline AdvReac Other (See Verified 09/06/24 12:35 Comment) metronidazole (From Flagyl) AdvReac Agitation Verified 09/06/24 12:35 Penicillins AdvReac Other (See Verified 09/06/24 12:35 Comment) Sulfa (Sulfonamide AdvReac anxious Verified 09/06/24 12:35 Antibiotics) General Stated Complaint: DrugWithdr/MAT MARAIM: 3 Review of Systems Constitutional Constitutional: Reports as per HPI, Denies chills, Denies fever(s), Denies lethargy and Denies poor appetite Eyes Eyes: Denies change in vision ENT Ears, Nose, Mouth, and Throat: Denies dizziness Cardiovascular Cardiovascular: Reports as per HPI, Denies dyspnea and Denies dyspnea on exertion Respiratory Respiratory: Reports as per HPI, Denies chest congestion, Denies cough, Denies pain on inspiration, Denies pain with cough, Denies dyspnea and Denies dyspnea on exertion Gastrointestinal Gastrointestinal: Reports as per HPI, Denies abdominal pain, Denies diarrhea, Denies nausea and Denies vomiting Musculoskeletal Musculoskeletal: Reports as per HPI and Denies back pain Integumentary/Breasts Skin/Breast: Reports as per HPI and Denies rash Neurologic Neurologic: Reports as per HPI and Denies dizziness Exam Const General: cooperative, healthy appearing, comfortable, no acute distress and well developed Nutritional Appearance: average body habitus and well nourished Orientation: alert, awake and oriented x3 HENMT Head: normal to inspection Ears: hearing grossly normal bilaterally Mouth: moist mucous membranes Chest Chest: normal inspection of the chest, normal palpation of entire chest wall and no crepitus Resp Effort & Inspection: normal respiratory effort, able to speak in complete sen tences and no respiratory distress Auscultation: clear to auscultation bilaterally, no rales, no rhonchi and no wheezes Cardio Rate: regular rate Rhythm: regular rhythm Heart Sounds: S1 normal and S2 normal GI Inspection: normal to inspection, no edema and non-distended Palpation: soft, no hepatosplenomegaly, no guarding, not rigid and nontender Skin General skin exam: no rashes or lesions noted Trauma: no lacerations or abrasions Neuro General: patient alert, patient awake and patient oriented x3 Cognition: normal cognition Speech: speech normal Gait: normal gait Extrem General: normal to inspection, capillary refill normal, no pedal edema, no calf tenderness and normal gait Course Vital Signs Vital signs: Vital Signs Temperature 36.3 C L 09/06/24 12:28 Pulse 93 H 09/06/24 12:28 Respiratory Rate 16 09/06/24 12:28 Blood Pressure 195/145 H 09/06/24 12:28 Pulse Oximetry 95 09/06/24 12:28 Temperature 36.3 C L 09/06/24 12:28 Temperature Source Oral 09/06/24 12:28 Pulse 93 H 09/06/24 12:28 Respiratory Rate 16 09/06/24 12:28 Blood Pressure 195/145 H 09/06/24 12:28 Blood Pressure Position Sitting 09/06/24 12:28 Pulse Oximetry 95 09/06/24 12:28 Oxygen Delivery Method Room Air 09/06/24 12:28 Oxygen Flow Rate 0 09/06/24 12:28 Medical Decision Making Patient is a pleasant 69-year-old female with past medical history significant for TIA, aphasia, diabetes, presenting today with chief complaint of medication withdrawal, hypertension. Patient reports that she stopped drinking yesterday, states that she did taper off of this. States that she also stopped her Valium. Appears the patient is taking 4 mg twice daily. She states that she is feeling like she is having withdrawal symptoms of tremulous and anxious. She also reports that she has not been taking her antihypertensives as these had been stopped last fall after an admission at outside hospital. Has been noticing her blood pressure elevated at home. 208/102 here. She denies any chest pain or shortness of breath. She does endorse a headache and states that this feels like her typical migraines and does not want to have any type of imaging as she feels that she has had too many of these. She denies any change in bowel or bladder habits. No suicidal ideations. Has been working with her mental health professional to cut back on her medications. Patient is not noted any weakness, change in cognition, sensory changes. She reports that she typically has a antimigraine medication but ran out of this. On exam, patient appears nontoxic. She is notably hypertensive a blood pressure of 195/145, otherwise hemodynamically stable. She is no evidence of meningismus, no focal neurologic deficits. She appears comfortable and reports that the headache is much more comfortable than she has been in the past with her migraines. Did not note any rash. Lungs are clear, normal cardiac exam. She does appear very anxious and slightly tremulous which she associates with withdrawal symptoms. Primarily concern at this time for her uncontrolled hypertension. I did correlated this with her headache and the patient continues to refuse any imaging, she feels that the migraine is similar if not less severe than her typical. She has not noted any changes compared to her baseline migraine headaches and no focal deficits, none noted on exam as well. Will begin the patient on antihypertensive. In regard to the patient's anxiety and tremulousness, will give 1 mg of Ativan and continue to reassess. Patient sounds like she has had a long history of alcohol abuse, states that she last drank yesterday but her history sounds slightly unclear, will discuss this further with her primary care mental health provider. She is not having any chest pain or shortness of breath or GI upset correlate with ACS. Will hold off on troponin at this point. However, will obtain CBC and CMP assessing for or endorgan damage associated with the hypertension. Also obtain alcohol based on patient's history. Labs reviewed. No leukocytosis. Stable H&H. CMP significant for slightly low potassium 3.4, magnesium 1.4, will replenish here. Alcohol is less than 3. Patient continues to feel well, continues to decline any imaging. She reports that symptoms have improved. I believe that replacement magnesium will also help with her chronic recurrent headaches. She no longer appears tremulous and denies any withdrawal symptoms. Spoke with her provider, davian Martin eis concerned about her mentation based on previous interventions. She recommends discussion with social supports. Has missused benzos in the past. She has had withdrawals in the past requiring hospitalization. She was started again on a benzo from admission. Taylor states she had been on clonazepam, transitioned to Valium with plan to decrease over time. However, patient then did not follow up. She states patietn came in suddenly today prompting her to come to the department. She also has not f/u with PCP which had been recommended as she was supposed to start BP medications again after discharge. She had spoken with [facility] patient about her ETOH use and she had reported that she was planning to drink with signficant other tonight, concerning for continued benzo plus ETOH use. Patient declines social media intern. Spoke with PCP, she advised that she often does not f/u, is very inconsistent with medications. She reviewed the prescriptions and it is unclear where/if she was getting the benzos as her last prescription was some time ago, inearly August at which time she only received a few pills. She will take over the benzos but does not feel hat more should be prescribed today as her story is very inconsistent. Unclear if/when she has been getting these. As she received Ativan here, a urine drug screen would not be beneficial at this time. Patient continues to feel improved although not 100%. Her blood pressure is significantly improved. She is agreeable to continue with the antihypertensive, will continue on metoprolol. I advised her that her mental health provider and primary care provider will plan to speak to continue with care for her mental health concerns, benzodiazepine and alcohol use. I will hold off on further prescription and have them continue to leave this. I did discuss this with the patient she will call to schedule follow-up appointment. She and I discussed strict return precautions. She is aware that she may return anytime with any new or worsening symptoms. All of her questions and concerns were addressed and patient is in agreement with this plan. Quality:[facility] Health Related Social Needs: No Data to Display [facility] All Active Problems (Updated 09/06/24 @ 15:58 by ANKUSH Dao) Withdrawal complaint (Acute) Hypomagnesemia (Acute) Hypertension (Chronic) Gram-positive bacteremia (Acute) Anxiety (Acute) Bipolar disorder (Acute) Bipolar I disorder (Chronic) [facility] Psychiatry Diverticular stricture (Chronic) Followed by [facility] Colon stricture (Chronic) Followed by 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 Diabetes mellitus Surgical History S/P cholecystectomy S/P BSO (bilateral salpingo-oophorectomy) (07/03/15) Status post foot surgery History of total vaginal hysterectomy (TVH) (07/03/15) With cystoscopy and rectocele repair History of esophagogastroduodenoscopy History of bilateral ligation of fallopian tubes Family History Mother Stroke Lung cancer Hypertension Father Heart disease Hyperlipidemia Hypertension Brother Heart disease DOUBLE BYPASS AGE 48 (NON SMOKER) Hyperlipidemia Son Depression Daughter Depression Maternal Grandfather Lung cancer Maternal Grandmother Heart disease Myocardial infarction Paternal Grandfather No problems noted. Paternal Grandmother Diabetes Social History Smoking/Tobacco Use Status: Former Tobacco Use Quit Date: 09/05/77 Smoking risk assessment performed?: Yes Alcohol Intake: never Drug use: Never Substance use type: does not use Housing: house Do you feel safe at home: Yes Do you feel safe in your relationship?: Yes Additional Social history: lives alone PAWSS Have you Been Recently Intoxicated or Drunk Within the Last 30 days?: No Have you Ever Experienced Previous Episodes of Alcohol Withdrawal?: No Have you ever Experienced Withdrawal Seizures?: No Have you ever Experienced Delirium Tremens(DT)s?: No Have you ever undergone Alcohol Rehabilitation Treatment (i.e, inpt ot outpatient treatment programs)?: No Have you ever Experienced Blackouts?: No Have you ever Combined Alcohol with other Downers within the last 90 days?: No Have you ever Combined Alcohol with any other Substance of Abuse during the last 90 days?: No Positive Blood Alcohol level on Presentation? [PCS.BAL]: Unable to Obtain Evidence of Increased Autonomic Activity (i.e. HR>120, tremor, sweating, agitation, nausea)?: Yes Result: 1
[2024-09-06] MEDS: LORazepam 2 MG/ML VIAL 1 MG IVP (13:16)
[2024-09-06] MEDS: Metoprolol 5 MG/5 ML VIAL IVP (13:17)
[2024-09-06 13:51] LABS: Abs Immature Grans 0.33 10^3/uL (0.0-0.06); HCT 40.8 % (36.0-46.0); HGB 13.6 g/dL (11.2-15.7); MCH 31.6 pg (27.0-33.0); MCHC 33.3 % (32.0-36.0); MCV 95 fL (80-95); RBC 4.31 10^6/uL (3.93-5.22); RDW 12.4 % (11.7-14.6); WBC 5.32 10^3/uL (4.4-10.8)
[2024-09-06 14:01] LABS: ALT 33 U/L (14-59); AST 34 U/L (15-37); Albumin 4.1 g/dL (3.4-5.0); Alkaline Phosphatase 70 U/L (46-116); Anion Gap 9.5 mmol/L (3-11); BUN 6 mg/dL (7-18); CO2 27.5 mmol/L (21.0-32.0); CREATININE 0.9 mg/dL (0.55-1.02); Calcium 8.9 mg/dL (8.5-10.1); Chloride 100 mmol/L (98-107); Estimated GFR 70.07 (mL/min/1.73m2); Glucose 103 mg/dL (74-106); Magnesium 1.4 mg/dL (1.8-2.4); Potassium 3.4 mmol/L (3.5-5.1); Sodium 137 mmol/L (136-145); Total Protein 7.9 g/dL (6.4-8.2)
[2024-09-06 14:03] LABS: ETHANOL BLOOD < 3.0 mg/dL (<10)
[2024-09-06 14:22] LABS: MPV 10.7 fL (8.0-11.0); Platelet Count 98 10^3/uL (130-400)
[2024-09-06 14:23] LABS: Absolute Eosinophil Count 0.11 10^3/uL (0.0-0.7); Absolute Lymphocyte Count 1.49 10^3/uL (1.2-3.4); Absolute Monocyte Count 0.74 10^3/uL (0.1-0.8); Absolute Neutrophil Count 2.87 10^3/uL (1.2-6.7); Bands % 2 %; Diff Comment Manual Differential; Metamyelocytes % 1; Myelocytes % 1; RBC Morphology Normal
[2024-09-06] MEDS: MAGNESIUM SULFATE 1 GM/100 ML BAG IV_INF (14:36)
[2024-09-06] MEDS: Metoprolol 25 MG TAB PO (14:36)
== END 2024-09-06 16:08 | disposition home or self-care (01) ==
PROVIDERS: Emergency Provider Physician Assistant; PCP Nurse Practitioner Family
DX: F13.930 Sedative, hypnotic or anxiolytic use, unspecified with withdrawal, uncomplicated (principal); G43.909 Migraine, unspecified, not intractable, without status migrainosus; I10 Essential (primary) hypertension; E83.42 Hypomagnesemia; E11.9 Type 2 diabetes mellitus without complications; Z79.84 Long term (current) use of oral hypoglycemic drugs; Z79.82 Long term (current) use of aspirin; Z87.891 Personal history of nicotine dependence; Z86.73 Personal history of transient ischemic attack (TIA), and cerebral infarction without residual deficits
CPT/HCPCS: 36415; 80053; 96365; 96375; 99284; 80320; 83735; 85025; J2060; J3475

== ENCOUNTER 2024-09-09 05:10 | Observation (INO) | payer MEDICARE, MEDICAID, SELFPAY ==
[2024-09-09] VITALS (47 sets, daily range): BP systolic 92–172; BP diastolic 56–111; PULSE 55–69; RESP 15–24; TEMP 36.5–37.4; O2SAT 88–97
--- NOTE | 2024-09-09 04:30 | RT.EKG_ITS ---
APPROVED REPORT Exam: Resting ECG Reason for Exam: abdominal pain Patient Location: E HR:57 bpm ECG Measurements Heart Rate 57 AXIS WA 173 P 38 QRSd 98 QRS 28 QT 415 T 45 QTc 405 Conclusion Sinus bradycardia, rate 57 No interval abnormalities No STEMI Compared to priors, no significant morphology changes, rate has decreased
--- NOTE | 2024-09-09 05:20 | W.ED.GENAD ---
Discharge Plan Disposition Patient Disposition: Admit to [facility] Condition: Stable Discharge Details Chief Complaint: AMS/LOC Clinical Impression: Encephalopathy, Gastroesophageal reflux disease with esophagitis, Bipolar I disorder, Migraine, Multiple cranial nerve palsy, Hyperlipidemia, Hypertension Primary Care Provider: Cathie Strange ED Provider: Delia Montalvo Home Meds and New Rx's Prescriptions: No Action lamotrigine 200 mg tablet 200 mg PO QHS lamotrigine 100 mg tablet 100 mg PO QAM magnesium hydroxide [Estevez Milk of Magnesia] 400 mg/5 mL suspension 5 ml PO DAILY PRN diclofenac sodium [Voltaren Arthritis Pain] 1 % gel 2 g topical QID PRN (Reason: joint pain) Qty: 100 1RF Rx Instructions: apply to single elbow, wrist or hand; for hand includes palm/fingers/back of hand esomeprazole magnesium [Nexium] 40 mg capsule,delayed release(DR/EC) 40 mg PO DAILY ondansetron HCl 4 mg tablet 4 mg PO Q8H PRN (Reason: nausea and vomiting) Qty: 20 0RF atorvastatin [Lipitor] 10 mg tablet 10 mg PO QHS diazepam 2 mg tablet 4 mg PO BID cyclobenzaprine 5 mg tablet 5 mg PO TID PRN (Reason: muscle spasm) Qty: 30 0RF trazodone 100 mg tablet 250 mg PO QHS sertraline 100 mg tablet 100 mg PO DAILY acetaminophen 325 mg Tablet 650 mg PO Q6H PRNQty: 40 0RF amlodipine 5 mg Tablet 5 mg PO DAILY Qty: 30 0RF docusate sodium [Colace] 100 mg Capsule 100 mg PO TID PRN PRNQty: 90 0RF aspirin [Children's Aspirin] 81 mg Tablet,Chewable 81 mg PO DAILY Qty: 30 0RF hydroxyzine HCl 50 mg Tablet 50 mg PO HS Qty: 30 0RF melatonin 3 mg Tablet 6 mg PO HS Qty: 60 0RF ibuprofen 200 mg capsule 400 mg PO Q6H PRNQty: 240 0RF Rexulti 2 mg tablet 3 mg PO DAILY metoprolol succinate 25 mg tablet extended release 24 hr 25 mg PO DAILY Qty: 30 0RF clonidine HCl 0.1 mg tablet 0.1 mg PO Q8H HPI General Mode of arrival: EMS. Date/Time Provider Initiated Documentation: 09/09/24 05:14. Limitations to Documentation: no limitations. Information obtained by: patient, EMS and old records reviewed. HPI Narrative: HPI: This is a 69-year-old female patient with a past medical history significant for bipolar, TIA, diverticulosis, hypertension, hyperlipidemia, and alcohol use disorder who is presenting for evaluation of altered mental status with headache, dizziness, vision changes, and right flank pain. The patient reports that she cannot remember when the symptoms occurred, thinks it was sometime last night but has not been feeling well for about a week. She reports that she gets very frequent headaches, states that her headache feels very similar to her prior migraines, but she is experiencing dizziness and a blurry unsteady sensation in her vision that is new and not typically associated with her headaches or migraines. She reports that she does not feel steady on her feet, is unable to provide an exact last known well but thinks it was sometime yesterday. The patient reports that she also started to have right flank pain over the last evening, cannot remember if there is any inciting event, states that she has not tried any medications for management of the pain. She has been struggling with some constipation, last bowel movement yesterday, and has been using gkge-hfe-dhlbeuv laxatives to try to improve this symptom. She states that she has noted some abdominal distention and bloating. Has not experienced vomiting, diarrhea, dysuria or hematuria. The patient reports that she was trying to drive to the hospital but became disoriented, states that she took the wrong turn and was driving in the wrong direction. Ultimately she had to summon EMS to take her to the hospital. Exam: Gen: awake and alert, in no apparent distress. Appears well nourished. HEENT: PERRL, EOMs full and without nystagmus. External ears and nose normal, mucous membranes moist. Neck: Supple, full range of motion, no observable masses Lungs: No increased work of breathing, lung sounds clear and equal bilaterally without wheezes, rhonchi, or rales. CV: Heart with regular rate and rhythm, no murmurs auscultated. Strong and symmetrical radial pulses. Abdomen: Soft, nondistended, non-tended to palpation. No rigidity, rebound tenderness, or guarding. MSK: No joint swelling, no redness. Full ROM without limitation, no external traumatic findings. Skin: No rashes or lesions to visualized skin. Normal color, warm, and dry. Neuro: Cranial nerves II-XII intact, the patient has some right sided facial droop and some speech challenges including word finding difficulties, unknown baseline. I do note a historical problem of multiple nerve palsies documented in her chart.. 5/5 strength in all muscle groups x4 extremities. No sensory deficits, no pronator drift. Ambulates steadily but requires 1 person assist Psych: Appropriate for situation. MDM: This is a 69-year-old female patient presenting for evaluation of headache, dizziness, vision changes, and right flank pain with constipation. Differential is quite broad but certainly includes TIA/CVA, intracranial hemorrhage (patient is not on blood thinning medications), migraine, tension headache. I considered nephrolithiasis, UTI/pyelonephritis, and intra-abdominal pathologies including diverticulitis, bowel obstruction, constipation. I considered metabolic and electrolyte derangements, dehydration, kidney injury, anemia, liver disease. Considered alcohol use and intoxication, withdrawal syndromes. I reviewed the patient's historical laboratory studies and notes normal kidney function. As there is an unknown last known well that is outside of the tPA window she does not meet criteria for a stroke activation, but we will proceed with CTA head and neck rapidly to determine any abnormalities that might be accounting for the patient's new symptoms given that the dizziness is not a typical characteristic of her migraines. Additionally, I will obtain laboratory studies to include CBC, CMP, magnesium, lipase, lactate, urinalysis, and troponin. I will obtain a CT abdomen pelvis with contrast to better characterize any abnormalities which might be causing her right flank pain and constipation. EKG without evidence of acute ischemia or arrhythmia. ED Course: I independently interpreted the laboratory studies, which show no significant leukocytosis, new or worsening anemia, or thrombocytopenia. The chemistry panel is without evidence of electrolyte abnormality, other than a very mild hyponatremia to 130 kidney dysfunction, or liver injury. Lipase is low, initial troponin negative, and urinalysis noninfectious. Ethyl alcohol undetectable. CTA head and neck was negative for large vessel occlusion or intracranial hemorrhage, and teleneuro was consulted. They evaluated the patient and feel that she would benefit from an encephalopathy workup, recommending MRI which can be completed tomorrow, TSH and B12 evaluation. I reached out to our hospitalist who has graciously accepted this patient for admission to the hospital for her encephalopathy workup. The patient endorsed some anxiety and for this reason I did provide her with a half dose of her home Valium, 2 mg p.o. Transferred to the hospitalist service without incident. Delia Montalvo MD Related Data Home Medications ?Medication ?Instructions ?Recorded ?Confirmed sertraline 100 mg tablet 100 mg PO DAILY 09/30/23 09/09/24 diclofenac sodium 1 % topical gel 2 g topical QID PRN joint pain 10/04/23 09/09/24 (Voltaren Arthritis Pain) #100 grams lamotrigine 100 mg tablet 100 mg PO QAM 10/21/23 09/09/24 lamotrigine 200 mg tablet 200 mg PO QHS 10/21/23 09/09/24 esomeprazole magnesium 40 mg 40 mg PO DAILY 12/30/23 09/09/24 capsule,delayed release (Nexium) magnesium hydroxide 400 mg/5 mL 5 ml PO DAILY PRN 03/28/24 09/09/24 oral suspension (Estevez Milk of Magn25eight) ondansetron HCl 4 mg tablet 4 mg PO Q8H PRN nausea and 05/24/24 09/09/24 vomiting #20 tabs acetaminophen 325 mg tablet 650 mg (2 x 325 mg) PO Q6H PRN #40 06/07/24 09/09/24 tabs amlodipine 5 mg tablet 5 mg PO DAILY #30 tabs 06/07/24 09/09/24 aspirin 81 mg chewable tablet 81 mg PO DAILY #30 tabs 06/07/24 09/09/24 (Children's Aspirin) docusate sodium 100 mg capsule 100 mg PO TID PRN PRN #90 caps 06/07/24 09/09/24 (Colace) hydroxyzine HCl 50 mg tablet 50 mg PO HS #30 tabs 06/07/24 09/09/24 ibuprofen 200 mg capsule 400 mg (2 x 200 mg) PO Q6H PRN 06/07/24 09/09/24 #240 caps melatonin 3 mg tablet 6 mg (2 x 3 mg) PO HS Abdominal 06/07/24 09/09/24 Pain #60 tabs atorvastatin 10 mg tablet (Lipitor) 10 mg PO QHS 06/18/24 09/09/24 diazepam 2 mg tablet 4 mg PO BID 07/19/24 09/09/24 cyclobenzaprine 5 mg tablet 5 mg PO TID PRN muscle spasm #30 08/01/24 09/09/24 tabs brexpiprazole 2 mg tablet (Rexulti) 3 mg PO DAILY 09/06/24 09/09/24 metoprolol succinate 25 mg 25 mg PO DAILY #30 tabs 09/06/24 09/09/24 tablet,extended release 24 hr trazodone 100 mg tablet 250 mg PO QHS 09/07/24 09/09/24 clonidine HCl 0.1 mg tablet 0.1 mg PO Q8H 09/09/24 09/09/24 Previous Rx's ?Medication ?Instructions ?Recorded diclofenac sodium 1 % topical gel 2 g topical QID PRN joint pain 10/04/23 (Voltaren Arthritis Pain) #100 grams ondansetron HCl 4 mg tablet 4 mg PO Q8H PRN nausea and 05/24/24 vomiting #20 tabs acetaminophen 325 mg tablet 650 mg (2 x 325 mg) PO Q6H PRN #40 06/07/24 tabs amlodipine 5 mg tablet 5 mg PO DAILY #30 tabs 06/07/24 aspirin 81 mg chewable tablet 81 mg PO DAILY #30 tabs 06/07/24 (Children's Aspirin) docusate sodium 100 mg capsule 100 mg PO TID PRN PRN #90 caps 06/07/24 (Colace) hydroxyzine HCl 50 mg tablet 50 mg PO HS #30 tabs 06/07/24 ibuprofen 200 mg capsule 400 mg (2 x 200 mg) PO Q6H PRN 06/07/24 #240 caps melatonin 3 mg tablet 6 mg (2 x 3 mg) PO HS Abdominal 06/07/24 Pain #60 tabs cyclobenzaprine 5 mg tablet 5 mg PO TID PRN muscle spasm #30 08/01/24 tabs metoprolol succinate 25 mg 25 mg PO DAILY #30 tabs 09/06/24 tablet,extended release 24 hr Allergies Allergy/AdvReac Type Severity Reaction Status Date / Time latex AdvReac Severe Skin Rash Verified 09/09/24 05:16 amoxicillin (From Augmentin) AdvReac Agitation Verified 09/09/24 05:16 azithromycin (From Zithromax) AdvReac headache, Verified 09/09/24 05:16 hearing loss,double vision, DAVILA ciprofloxacin (From Cipro) AdvReac Dizziness/L Verified 09/09/24 05:16 ightheade clavulanic acid (From AdvReac Agitation Verified 09/09/24 05:16 Augmentin) codeine AdvReac GI upset Verified 09/09/24 05:16 doxycycline AdvReac Other (See Verified 09/09/24 05:16 Comment) metronidazole (From Flagyl) AdvReac Agitation Verified 09/09/24 05:16 Penicillins AdvReac Other (See Verified 09/09/24 05:16 Comment) Sulfa (Sulfonamide AdvReac anxious Verified 09/09/24 05:16 Antibiotics) General Stated Complaint: AMS/LOC MARIAM: 3 Course Vital Signs Vital signs: Vital Signs Temperature 36.8 C 09/09/24 04:55 Pulse 59 L 09/09/24 04:55 Respiratory Rate 16 09/09/24 04:55 Blood Pressure 164/81 H 09/09/24 04:55 Pulse Oximetry 97 09/09/24 04:55 Temperature 36.8 C 09/09/24 04:55 Temperature Source Tympanic 09/09/24 04:55 Pulse 59 L 09/09/24 04:55 Respiratory Rate 16 09/09/24 05:01 Respiratory Effort Normal 09/09/24 05:01 Respiratory Depth Normal 09/09/24 05:01 Respiratory Pattern Normal 09/09/24 05:01 Blood Pressure 164/81 H 09/09/24 04:55 Blood Pressure Position Supine 09/09/24 04:55 Pulse Oximetry 97 09/09/24 04:55 Oxygen Delivery Method Room Air 09/09/24 04:55 Oxygen Flow Rate 0 09/09/24 04:55 Pain Level 5 09/09/24 04:55 Procedures Other Description: Ultrasound-guided IV Using universal precautions and sterile procedure, an appropriate collapsible vessel was identified using a linear ultrasound probe. A 20-gauge IV catheter was advanced using real-time ultrasound guidance into the vessel with return of blood appreciated in the chamber. The catheter was advanced without difficulty and good blood return was noted. The IV flushed easily without evidence of extravasation. Delia Montalvo MD Medical Decision Making Quality:SDOH Health Related Social Needs: Health related social needs housing instability, housed, with risk of homelessness (Z59.811), feeling lonely/isolated (Z60.8) PFSH All Active Problems (Updated 09/09/24 @ 08:00 by Delia Montalvo MD) Encephalopathy (Acute) Withdrawal complaint (Acute) Hypomagnesemia (Acute) Hypertension (Chronic) Gram-positive bacteremia (Acute) Anxiety (Acute) Bipolar disorder (Acute) Bipolar I disorder (Chronic) 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) Glaucoma (Chronic) Allergic rhinitis (Chronic) Medical History TMJ (temporomandibular joint disorder) Diverticulitis of sigmoid colon Multiple episodes, seeing [facility] Diabetes mellitus Surgical History S/P cholecystectomy S/P BSO (bilateral salpingo-oophorectomy) (07/03/15) Status post foot surgery History of total vaginal hysterectomy (TVH) (07/03/15) With cystoscopy and rectocele repair History of esophagogastroduodenoscopy History of bilateral ligation of fallopian tubes Family History Mother Stroke Lung cancer Hypertension Father Heart disease Hyperlipidemia Hypertension Brother Heart disease DOUBLE BYPASS AGE 48 (NON SMOKER) Hyperlipidemia Son Depression Daughter Depression Maternal Grandfather Lung cancer Maternal Grandmother Heart disease Myocardial infarction Paternal Grandfather No problems noted. Paternal Grandmother Diabetes Social History Smoking/Tobacco Use Status: Former Tobacco Use Quit Date: 09/05/77 Smoking risk assessment performed?: Yes Alcohol Intake: never Drug use: Never Substance use type: does not use Housing: house Do you feel safe at home: Yes Do you feel safe in your relationship?: Yes Additional Social history: lives alone
[2024-09-09 05:21] LABS: Bilirubin Negative (Negative); Blood Negative (Negative); Clarity Clear (Clear); Glucose Negative (Negative); Ketones Negative (Negative); Leukocyte Esterase Negative (Negative); Nitrite Negative (Negative); Specific Gravity 1.015 (1.005-1.025); Urobilinogen 0.2 mg/dL (Up to 0.2)
--- NOTE | 2024-09-09 05:48 | DI.CT_ITS ---
Exam(s) CT BRAIN NECK CTA EXAM: CT BRAIN NECK CTA CLINICAL HISTORY: DAVILA, new dizziness and vision changed, unknown LKW. TECHNIQUE: Imaging Protocol: Axial CT angiography was performed with multi-slice acquisition and mu lti-planar and/or 3D reconstructions. CONTRAST MATERIAL: Intravenous: Omnipaque 350 Contrast volume:70 mL COMPARISON: CT CT BRAIN NECK CTA from 05/30/2024 FINDINGS: CTA Neck W: Aortic arch anatomy: The aortic arch anatomy is conventional and there is no significant stenosis at the origin of the great vessels off of the aortic arch. No intimal flap evident. Anterior circulation: Both common carotid arteries ascend with normal luminal diameters. At the level the right carotid bulb and proximal right internal carotid artery there is mild partiall y calcified plaque noted the. Amount of stenosis estimated 20%. The right internal carotid artery i s patent in the upper neck and skull base-right carotid canal. On the left side there is calcified plaque on the posterior wall of the carotid bulb and proximal rig ht ICA. Amount of stenosis is estimated at 20 percent. Above this level the left ICA in the upper n nahed is nicely patent as well as in the skull base-carotid canal. Posterior circulation: Both vertebral arteries originate in conventional fashion off of the subclavian arteries and there is no obvious stenosis at the origin of the vertebral arteries. Both vertebral arteries exhibit normal luminal diameters within the foramen transversarium. No evide nce of intraluminal thrombus nor dissection of these vessels. Both vertebral arteries contribute to the formation of the basilar artery at the skull base. CTA Brain W: Anterior circulation: Both internal carotid arteries are patent in the skull base-carotid canals as well as within the cave rnous sinuses. The supraclinoid aspects of the ICAs are patent. Both A1 segments are patent as are the anterior cer ebral arteries and there is no evidence of aneurysm at the level of the anterior communicating artery . Both middle cerebral arteries are patent with no evidence of significant stenosis nor intraluminal th rombus. There also no aneurysms of these vessels. Posterior circulation: The basilar artery ascends in the midline. Distally it gives off patent bilateral superior cerebella r arteries. Above this level the basilar artery terminates as patent bilateral posterior cerebral arteries. There is a posterior communicating artery evident on the left side of the [id number]. There is no evidence of aneurysm at the tip of the basilar artery nor elsewhere in the [id number] is. CT BRAIN: There is no evidence of intracranial hemorrhage, mass effect, or shift of midline structures. There are no extra-axial fluid collections. Ventricles are not enlarged or shifted. There are no ring enh ancing lesions in the brain and no abnormal meningeal enhancement. There is some periventricular hypodensity consistent with chronic small vessel disease. No acute inf arcts evident. IMPRESSION: 1. Mild plaque noted at the carotid bulbs and proximal internal carotid arteries bilaterally. Howeve r, the amount of stenosis is estimated to be 20 percent on the left side and less on the right side. No evidence of dissection. 2. Patent vertebral arteries. 3. Patent intracranial arteries. 4. No evidence of ring-enhancing lesions in the brain nor abnormal meningeal enhancement. No evidenc e of hemorrhage. RADIATION DOSE DELIVERED: 2,080.24mGy.cm Total DLP DATA REPOSITORY: All CT scans at this facility are submitted to the National Radiology Data Registry (NRDR) Dose Index Registry (DIR) with the [employer] (ACR). RADIATION OPTIMIZATION: All CT scans at this facility use at least one of these dose optimization te chniques: automated exposure control; mA and/or kV adjustment per patient size (includes targeted exa ms where dose is matched to clinical indication); or iterative reconstruction.
--- NOTE | 2024-09-09 05:48 | DI.CT_ITS ---
Exam(s) CT ABDOMEN PELVIS W EXAM: CT ABDOMEN PELVIS W CLINICAL HISTORY: R. flank pain, abd pain with constipation. TECHNIQUE: Imaging Protocol: Axial computed tomography images with coronal and sagittal reformatted images were created and reviewed CONTRAST MATERIAL: Intravenous: Omnipaque-350 100cc Oral: None COMPARISON: CT CT ABDOMEN PELVIS W from 03/10/2024 FINDINGS: VISUALIZED LUNG BASES: There is increasing infiltrate in the right lower lobe, specifically in the po sterior basal segment of the right lower lobe. Requires follow-up. There are no pleural effusions.. ABDOMEN: There is no ascites. LIVER: There are no focal hepatic lesions evident. No dilated intrahepatic ducts. GALLBLADDER/BILIARY: The gallbladder is again noted to be surgically absent. CBD is not dilated. PANCREAS: No evidence of pancreatic mass nor dilatation of the pancreatic duct. SPLEEN: Spleen is not enlarged. No obvious intrasplenic lesions. Splenic and portal veins are paten t. ADRENALS: There are no significant adrenal masses. KIDNEYS:Right kidney unremarkable. 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 There are no other focal renal lesions. No calculi. No hydronephrosis nor significant hydroureter. Again noted is colonization of the right ureter down to the crossover point of the right ureter over the right i liac artery. Right ureter below this level is not dilated. The left ureter exhibits normal diameter throughout its course. There are no focal masses evident in the urinary bladder. No radiopaque rina culi in the bladder. The bladder is mildly distended. ABDOMINAL AORTA: Moderate atherosclerotic involvement of the abdominal aorta without significant aneu rysm nor tight stenosis at the bifurcation and no evidence of aneurysmal dilatation or significant st enosis in the iliac arteries. LYMPH NODES:There is no retroperitoneal nor paraaortic adenopathy. ABDOMINAL WALL: There is a midline upper anterior abdominal wall fat only containing hernia sac anter ior to the left hepatic lobe which does not contain bowel loops. The hernia sac measures 2 cm wide b y 1.3 cm AP by 2 cm craniocaudal. No other anterior abdominal wall nor inguinal hernias evident. . GI: The cecum is mobile. There is a calcification at the ileocecal valve region. No bowel obstructi on. The appendix is not identified is an independent structure but there is no evidence of obvious a cute appendicitis. No free air. No abscess. PELVIS: GI: No evidence of sigmoid diverticulitis.There are sigmoid diverticuli without evidence of obvious a cute diverticulitis. LYMPH NODES: There is no intrapelvic nor inguinal adenopathy. REPRODUCTIVE: Uterus is surgically absent. There are no abnormal adnexal masses nor free fluid in th e pelvis URINARY BLADDER: No calculi nor obvious masses evident OSSEOUS: No fractures and no significant osseous lesions. There is mild degenerative anterolisthesis of L4 upon L5 without significant disc space narrowing at this level.. Also chronic disc space narrowing at L5-S1 level. IMPRESSION: 1. No renal calculi nor hydronephrosis but there is again noted slight prominence/colonization of the right ureter down to the crossover point with the right iliac artery, similar to the previous study. There is no obvious radiopaque intraluminal calculus at this level nor in the kidneys nor in the ur inary bladder. The opposite-left ureter appears unremarkable. 2. 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 Small midline fat only containing anterior abdominal hernia anterior to the left hepatic lobe, als o unchanged from March 2024. There is no evidence of bowel obstruction. 4. Sigmoid diverticulosis without obvious acute diverticulitis. Previous cholecystectomy and hysterectomy noted. No significant dilatation of the biliary tree. No abnormal adnexal masses nor ascites evident RADIATION DOSE DELIVERED: 541.61mGy.cm Total DLP DATA REPOSITORY: All CT scans at this facility are submitted to the National Radiology Data Registry (NRDR) Dose Index Registry (DIR) with the [employer] (ACR). RADIATION OPTIMIZATION: All CT scans at this facility use at least one of these dose optimization te chniques: automated exposure control; mA and/or kV adjustment per patient size (includes targeted exa ms where dose is matched to clinical indication); or iterative reconstruction.
[2024-09-09] MEDS: Normal Saline - Diluent 50 ML VIAL IJ ×2 (05:52→05:53)
[2024-09-09] MEDS: Omnipaque 350 MG/ML 50 ML BTL IJ (05:53)
[2024-09-09] MEDS: Omnipaque 350 MG/ML 100 ML BTL IJ (05:53)
--- NOTE | 2024-09-09 06:07 | DI.VRAD_ITS ---
PROCEDURE INFORMATION: Exam: CTA Head Without And With Contrast, Arteriography Exam date and time: 09/09/2024 5:16 AM Age: 69 years old Clinical indication: Stroke-like symptoms; Altered mental status/memory loss and dizziness/giddiness and speech disturbance TECHNIQUE: Imaging protocol: Computed tomographic angiography of the head without and with contrast. Exam focused on the arteries. 3D rendering (Not supervised by radiologist): MIP and/or 3D reconstructed images were created by the technologist. Radiation optimization: All CT scans at this facility use at least one of these dose optimization techniques: automated exposure control; mA and/or kV adjustment per patient size (includes targeted exams where dose is matched to clinical indication); or iterative reconstruction. Contrast material: [id number]; Contrast volume: 70 ml; Contrast route: INTRAVENOUS (IV); Other technique: STROKE PROTOCOL was implemented. COMPARISON: CT BRAIN NECK CTA 05/30/2024 7:04 PM FINDINGS: ANTERIOR CIRCULATION: Right internal carotid artery: Intracranial segment is patent with no significant stenosis or occlusion. No aneurysm. Right middle cerebral artery: No occlusion or significant stenosis. No aneurysm. Right anterior cerebral artery: No occlusion or significant stenosis. No aneurysm. Left internal carotid artery: Intracranial segment is patent with no significant stenosis. No aneurysm. Left middle cerebral artery: No occlusion or significant stenosis. No aneurysm. Left anterior cerebral artery: No occlusion or significant stenosis. No aneurysm. POSTERIOR CIRCULATION: Right vertebral artery: No occlusion or significant stenosis. No aneurysm. Left vertebral artery: No occlusion or significant stenosis. No aneurysm. Basilar artery: No occlusion or significant stenosis. No aneurysm. Right posterior cerebral artery: No occlusion or significant stenosis. No aneurysm. Left posterior cerebral artery: No occlusion or significant stenosis. No aneurysm. HEAD: Brain: Volume loss and chronic small vessel ischemic change. No intracranial hemorrhage or brain edema. Cerebral ventricles: Normal. No ventriculomegaly. Bones: Unremarkable. No acute fracture. Paranasal sinuses: Visualized sinuses are normal. No fluid levels. Mastoid air cells: Visualized mastoids are normal. No mastoid effusion. Soft tissues: Unremarkable. IMPRESSION: No acute vascular findings. PROCEDURE INFORMATION: Exam: CTA Neck Without And With Contrast Exam date and time: 09/09/2024 5:16 AM Age: 69 years old Clinical indication: Stroke-like symptoms; Altered mental status/memory loss and dizziness/giddiness and speech disturbance TECHNIQUE: Imaging protocol: Computed tomographic angiography of the neck without and with contrast. Exam focused on the cervical segments of the vasculature. 3D rendering (Not supervised by radiologist): MIP and/or 3D reconstructed images were created by the technologist. Radiation optimization: All CT scans at this facility use at least one of these dose optimization techniques: automated exposure control; mA and/or kV adjustment per patient size (includes targeted exams where dose is matched to clinical indication); or iterative reconstruction. Contrast material: [id number]; Contrast volume: 70 ml; Contrast route: INTRAVENOUS (IV); COMPARISON: CT BRAIN NECK CTA 05/30/2024 7:04 PM FINDINGS: Right common carotid artery: Atherosclerosis of the right carotid bulb and proximal right internal carotid artery without significant luminal narrowing. No thrombosis or occlusion. Right internal carotid artery: See Right common carotid artery finding. Right external carotid artery: No occlusion or stenosis of the origin. Left common carotid artery: Atherosclerosis of the left carotid bulb and proximal left internal carotid artery without significant luminal narrowing. No thrombosis or occlusion. Left internal carotid artery: See Left common carotid artery finding. Left external carotid artery: No occlusion or stenosis of the origin. Right vertebral artery: No stenosis. No dissection or occlusion. Left vertebral artery: No stenosis. No dissection or occlusion. Soft tissues: Normal. No significant soft tissue swelling. Bones/joints: No acute fracture. IMPRESSION: No acute vascular findings. REFERENCES: NASCET CRITERIA. The degree of stenosis in the cervical segment of the internal carotid artery is based on NASCET criteria. Normal is no stenosis. Mild is less than 50% stenosis. Moderate is 50-69% stenosis. Severe is 70% to 99% stenosis. Total occlusion is no detectable patent lumen. Dictated and Authenticated by: Tez Shore MD. Ordering:LIZZY Milligan MD
--- NOTE | 2024-09-09 06:20 | DI.VRAD_ITS ---
PROCEDURE INFORMATION: Exam: CT Abdomen And Pelvis With Contrast Exam date and time: 09/09/2024 5:24 AM Age: 69 years old Clinical indication: Abdominal pain; Right; Patient HX: R flank pain, bad pain with constipation TECHNIQUE: Imaging protocol: Computed tomography of the abdomen and pelvis with contrast. Radiation optimization: All CT scans at this facility use at least one of these dose optimization techniques: automated exposure control; mA and/or kV adjustment per patient size (includes targeted exams where dose is matched to clinical indication); or iterative reconstruction. Contrast material: [id number]; Contrast volume: 75 ml; Contrast route: INTRAVENOUS (IV); COMPARISON: CT ABDOMEN PELVIS W 03/10/2024 12:43 AM FINDINGS: Limitations: Mild motion artifact. Lungs: Atelectasis/scarring at the lung bases. Diaphragm: Small hiatal hernia. Liver: No focal hepatic lesion identified. Gallbladder and biliary ducts: Cholecystectomy with biliary ductal dilatation. Pancreas: No CT evidence for acute pancreatitis. Spleen: No splenomegaly. Adrenal glands: Adrenal thickening. Kidneys and ureters: Left renal angiomyolipoma. No hydronephrosis. Stomach and bowel: No intestinal obstruction is evident. Fluid in nondilated small bowel, nonspecific. Colonic diverticula. Moderate fluid in the colon. The cecum extends into the left mid abdomen. Appendix: No evidence of appendicitis. Intraperitoneal space: No free air. Vasculature: Atherosclerotic changes in the aorta and its branches. Lymph nodes: No acute findings. Urinary bladder: Distended urinary bladder. Reproductive: Uterus absent. Bones/joints: Mild spinal curvature and degenerative change. Soft tissues: Fat containing ventral hernias. IMPRESSION: 1. No acute findings to explain reported symptoms. 2. Nonacute findings as outlined above. Dictated and Authenticated by: Tess Li MD. Ordering:LIZZY Milligan MD
[2024-09-09] MEDS: Lactated Ringers 500 ML IV (06:30)
[2024-09-09 06:33] LABS: Lactate 0.8 mmol/L (0.6-1.4)
[2024-09-09 06:36] LABS: HCT 37.9 % (36.0-46.0); HGB 12.5 g/dL (11.2-15.7); MCH 31.7 pg (27.0-33.0); MCV 96 fL (80-95); MPV 10.7 fL (8.0-11.0); RBC 3.94 10^6/uL (3.93-5.22); RDW 12.2 % (11.7-14.6); RDW-SD 43.5 fL; WBC 4.42 10^3/uL (4.4-10.8)
[2024-09-09 06:50] LABS: ETHANOL BLOOD < 3.0 mg/dL (<10)
[2024-09-09 06:51] LABS: Absolute Eosinophil Count 0.22 10^3/uL (0.0-0.7); Absolute Lymphocyte Count 1.72 10^3/uL (1.2-3.4); Absolute Monocyte Count 0.49 10^3/uL (0.1-0.8); Absolute Neutrophil Count 1.94 10^3/uL (1.2-6.7); Atypical Lymphocytes % 8 %; Diff Comment Manual Differential; Metamyelocytes % 1; Platelet Count 89 10^3/uL (130-400); RBC Morphology Normal
[2024-09-09 06:53] LABS: ALT 22 U/L (14-59); AST 24 U/L (15-37); Albumin 3.6 g/dL (3.4-5.0); Alkaline Phosphatase 57 U/L (46-116); Anion Gap 3.2 mmol/L (3-11); BUN 10 mg/dL (7-18); Bilirubin, Total 0.36 mg/dL (0.2-1.0); CO2 31.8 mmol/L (21.0-32.0); Calcium 8.5 mg/dL (8.5-10.1); Chloride 95 mmol/L (98-107); Estimated GFR 61.75 (mL/min/1.73m2); Glucose 91 mg/dL (74-106); Lipase 53 U/L (<78); Magnesium 1.8 mg/dL (1.8-2.4); Potassium 4.1 mmol/L (3.5-5.1); Sodium 130 mmol/L (136-145); Total Protein 6.6 g/dL (6.4-8.2); Troponin I 14 ng/L (<or=51)
[2024-09-09 07:50] LABS: Troponin I 13 ng/L (<or=51)
[2024-09-09] MEDS: diazePAM 2 MG TAB PO ×2 (07:50→10:09)
--- NOTE | 2024-09-09 08:03 | HPE_ITS ---
Date of service: 09/09/24 Time of Service: 08:03 Assessment and Plan Assessment and plan (1) Encephalopathy: Status: Acute Assessment and plan: - Unknown origin at this time -Does not appear to be metabolic as electrolytes were within normal limits, alcohol level undetectable -Also does not appear to be infectious as patient does not have leukocytosis or fever -Patient does have documented history and admissions for episodic encephalopathy that does not appear to have etiology which may all be secondary to underlying psychiatric illness -Will monitor patient, recheck CBC and CMP in the morning, and obtain MRI as recommended by [facility] (2) Anxiety: Status: Acute Assessment and plan: - Continue home 4 mg p.o. twice daily diazepam, 0.1 mg every 8 hour clonidine (3) Bipolar I disorder: Status: Chronic Assessment and plan: - Continue home Rexulti (4) Hypertension: Status: Resolved Assessment and plan: Continue home amlodipine (5) Hyperlipidemia: Status: Chronic Assessment and plan: Continue home statin (6) Migraine: Status: Chronic Assessment and plan: -continue home PRN Rizatriptan PRN History of Present Illness Narrative: 69-year-old female with a past medical history bipolar, TIA, diverticulosis, hypertension, hyperlipidemia, alcohol use disorder and multiple hospitalizations for similar episodes of altered mental status who presents to the emergency department with chief complaint of headache, dizziness, visual changes and right flank pain. Patient states that she cannot remember when her symptoms started but she thinks it was sometime the night prior but then also states that she has not been feeling well for the last week. She states she has been getting frequent headaches and they are similar to previous migraines but she is experiencing dizziness and blurry vision which is not typical for her headaches or migraines in addition to not feeling steady on her feet. She also states that she has right flank pain that began the night prior does not remember any inciting event, states she has not taken any medications for this discomfort. Additionally, she also states that she is try driving to the hospital but became disoriented realizing that she was driving in the wrong direction when she pulled over and called EMS who brought her to the hospital. In the emergency department the patient was noted as having normal vital signs, normal CBC, normal CMP, and normal physical exam. She had CTA of her head and neck that did not show any acute abnormalities, and additional labs including lipase, lactate, UA, troponin were all negative or within normal limits as was her EKG. Emergency room physician consulted [facility] who recommended patient be admitted for continued workup for encephalopathy and have MRI as soon as available. At which time emergency room physician paged hospitalist for admission for patient with encephalopathy of unknown origin. Review of Systems All systems reviewed & are unremarkable except as noted in HPI and below PFSH All Active Problems (Updated 09/09/24 @ 08:00 by Delia Montalvo MD) Encephalopathy (Acute) Withdrawal complaint (Acute) Hypomagnesemia (Acute) Hypertension (Chronic) Gram-positive bacteremia (Acute) Anxiety (Acute) Bipolar disorder (Acute) Bipolar I disorder (Chronic) [facility] Psych[facility] Diverticular stricture (Chronic) Followed by [facility] Colon stricture (Chronic) Followed by [facility] Cramer's esophagus (Chronic) On 2009 EGD, not on 2012 EGD, on 2023 EGD Gastroesophageal reflux disease with esophagitis (Chronic) Diverticulosis of colon (Chronic) Chronic diarrhea (Chronic) Hyperlipidemia (Chronic) Hiatal hernia (Chronic) Migraine (Chronic) 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) Glaucoma (Chronic) Allergic rhinitis (Chronic) Medical History TMJ (temporomandibular joint disorder) Diverticulitis of sigmoid colon Multiple episodes, seeing [facility] Diabetes mellitus Surgical History S/P cholecystectomy S/P BSO (bilateral salpingo-oophorectomy) (07/03/15) Status post foot surgery History of total vaginal hysterectomy (TVH) (07/03/15) With cystoscopy and rectocele repair History of esophagogastroduodenoscopy History of bilateral ligation of fallopian tubes Family History Mother Stroke Lung cancer Hypertension Father Heart disease Hyperlipidemia Hypertension Brother Heart disease DOUBLE BYPASS AGE 48 (NON SMOKER) Hyperlipidemia Son Depression Daughter Depression Maternal Grandfather Lung cancer Maternal Grandmother Heart disease Myocardial infarction Paternal Grandfather No problems noted. Paternal Grandmother Diabetes Social History Smoking/Tobacco Use Status: Former Tobacco Use Quit Date: 09/05/77 Smoking risk assessment performed?: Yes Alcohol Intake: never Drug use: Never Substance use type: does not use Housing: house Do you feel safe at home: Yes Do you feel safe in your relationship?: Yes Additional Social history: lives alone Meds Allergies and Home Medications Allergies Allergy/AdvReac Type Severity Reaction Status Date / Time latex AdvReac Severe Skin Rash Verified 09/09/24 05:16 amoxicillin (From Augmentin) AdvReac Agitation Verified 09/09/24 05:16 azithromycin (From Zithromax) AdvReac headache, Verified 09/09/24 05:16 hearing loss,double vision, DAVILA ciprofloxacin (From Cipro) AdvReac Dizziness/L Verified 09/09/24 05:16 ightheade clavulanic acid (From AdvReac Agitation Verified 09/09/24 05:16 Augmentin) codeine AdvReac GI upset Verified 09/09/24 05:16 doxycycline AdvReac Other (See Verified 09/09/24 05:16 Comment) metronidazole (From Flagyl) AdvReac Agitation Verified 09/09/24 05:16 Penicillins AdvReac Other (See Verified 09/09/24 05:16 Comment) Sulfa (Sulfonamide AdvReac anxious Verified 09/09/24 05:16 Antibiotics) Home Medications ?Medication ?Instructions ?Recorded ?Confirmed ?Type sertraline 100 mg tablet 100 mg PO DAILY 09/30/23 09/09/24 History diclofenac sodium 1 % topical gel 2 g topical QID PRN joint pain 10/04/23 09/09/24 Rx (Voltaren Arthritis Pain) #100 grams lamotrigine 100 mg tablet 100 mg PO QAM 10/21/23 09/09/24 History lamotrigine 200 mg tablet 200 mg PO QHS 10/21/23 09/09/24 History esomeprazole magnesium 40 mg 40 mg PO DAILY 12/30/23 09/09/24 History capsule,delayed release (Nexium) magnesium hydroxide 400 mg/5 mL 5 ml PO DAILY PRN 03/28/24 09/09/24 History oral suspension (Estevez Milk of Magnesia) ondansetron HCl 4 mg tablet 4 mg PO Q8H PRN nausea and 05/24/24 09/09/24 Rx vomiting #20 tabs acetaminophen 325 mg tablet 650 mg (2 x 325 mg) PO Q6H PRN #40 06/07/24 09/09/24 Rx tabs amlodipine 5 mg tablet 5 mg PO DAILY #30 tabs 06/07/24 09/09/24 Rx aspirin 81 mg chewable tablet 81 mg PO DAILY #30 tabs 06/07/24 09/09/24 Rx (Children's Aspirin) docusate sodium 100 mg capsule 100 mg PO TID PRN PRN #90 caps 06/07/24 09/09/24 Rx (Colace) hydroxyzine HCl 50 mg tablet 50 mg PO HS #30 tabs 06/07/24 09/09/24 Rx ibuprofen 200 mg capsule 400 mg (2 x 200 mg) PO Q6H PRN 06/07/24 09/09/24 Rx #240 caps melatonin 3 mg tablet 6 mg (2 x 3 mg) PO HS Abdominal 06/07/24 09/09/24 Rx Pain #60 tabs atorvastatin 10 mg tablet (Lipitor) 10 mg PO QHS 06/18/24 09/09/24 History diazepam 2 mg tablet 4 mg PO BID 07/19/24 09/09/24 History cyclobenzaprine 5 mg tablet 5 mg PO TID PRN muscle spasm #30 08/01/24 09/09/24 Rx tabs brexpiprazole 2 mg tablet (Rexulti) 3 mg PO DAILY 09/06/24 09/09/24 History metoprolol succinate 25 mg 25 mg PO DAILY #30 tabs 09/06/24 09/09/24 Rx tablet,extended release 24 hr trazodone 100 mg tablet 250 mg PO QHS 09/07/24 09/09/24 History clonidine HCl 0.1 mg tablet 0.1 mg PO Q8H 09/09/24 09/09/24 History rizatriptan 10 mg disintegrating 10 mg PO ONCE PRN 09/09/24 09/09/24 History tablet Results Labs 09/09/24 06:15 09/09/24 06:15 Labs: Laboratory Results - last 24 hr 09/09/24 09/09/24 09/09/24 04:56 06:15 07:20 WBC 4.42 RBC 3.94 Hgb 12.5 Hct 37.9 MCV 96 H MCH 31.7 MCHC 33.0 RDW 12.2 Plt Count 89 L MPV 10.7 Immature Gran % 0.0 Neutrophils % 44.0 Lymphocytes % 31.0 Atypical Lymphs % 8 Monocytes % 11.0 Eosinophils % 5.0 Basophils % 0.0 Metamyelocytes % 1 Nucleated RBC % 0.0 Absolute Neutrophils 1.94 Absolute Lymphocytes 1.72 Absolute Monocytes 0.49 Absolute Eosinophils 0.22 Absolute Basophils 0.00 RBC Morphology Normal PT 10.0 INR 1.0 VBG Lactate 0.8 Sodium 130 L Potassium 4.1 Chloride 95 L Carbon Dioxide 31.8 Anion Gap 3.2 BUN 10 Creatinine 1.0 Est GFR (CKD-EPI 2020) 61.75 Glucose 91 Calcium 8.5 Magnesium 1.8 Total Bilirubin 0.36 AST 24 ALT 22 Alkaline Phosphatase 57 Troponin I 14 13 Total Protein 6.6 Albumin 3.6 Lipase 53 Urine Color Yellow Urine Clarity Clear Urine pH 6.0 Ur Specific [place] 1.015 Urine Protein Negative Urine Ketones Negative Urine Blood Negative Urine Nitrite Negative Urine Bilirubin Negative Urine Urobilinogen 0.2 Ur Leukocyte Esterase Negative Urine Glucose Negative Ethyl Alcohol < 3.0 Last Vital Signs Temp 98.2 F 09/09/24 04:55 Pulse 69 09/09/24 07:56 Resp 21 09/09/24 07:50 BP 172/77 H 09/09/24 07:56 Pulse Ox 94 09/09/24 07:50 Time Spent Time spent with Patient: >75 minutes Time was spent: preparing to see the patient(eg.review tests), obtaining and/or reviewing separately otained hiistory, ordering medications,tests, procedures, referring, communicating with other health team primary care physician, indepentently interpreting results, counseling the patient and care coordination
[2024-09-09 08:46] LABS: TSH (W/Ref FT4) 2.08 uIU/mL (0.36-3.74); Vitamin B12 1066 pg/mL (193-986)
--- NOTE | 2024-09-09 09:27 | W.PC.ACHO ---
Registration Status: Primary Language: Preferred Language: ED Information & Data Chief Complaint AMS/LOC 09/09/24 05:25 Other Complaint Abd Prob 09/09/24 04:55 Triage Note Pt arrives via EMS c/o R 09/09/24 04:55 lower back pain, generalized abd pain/bloating d/t constipation (last BM yesterday). Pt reportedly took laxatives earlier this morning. Pt also states she has a h/a and feels dizzy. Pt w hx TIA and SI. No reports of SI/HI tonight. 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 Medical / Surgical History (Last Reviewed 05/30/24 @ 21:44 by Delbert Tam) Decreased oral intake TIA (transient ischemic attack) Aphasia Fall TMJ (temporomandibular joint disorder) Diverticulitis of sigmoid colon Diabetes mellitus (Last Reviewed 05/30/24 @ 21:44 by Delbert Tam) S/P cholecystectomy S/P BSO (bilateral salpingo-oophorectomy) (07/03/15) Status post foot surgery History of total vaginal hysterectomy (TVH) (07/03/15) History of esophagogastroduodenoscopy History of bilateral ligation of fallopian tubes Most Recent Vital Signs Temperature 36.7 C 09/09/24 08:30 Temperature Source Tympanic 09/09/24 04:55 Pulse 60 09/09/24 08:56 Pulse 64 09/09/24 09:10 Respiratory Rate 22 09/09/24 09:10 Respiratory Effort Normal 09/09/24 05:01 Respiratory Depth Normal 09/09/24 07:56 Respiratory Pattern Normal 09/09/24 05:01 Blood Pressure 130/61 09/09/24 08:56 Blood Pressure Mean 84 09/09/24 08:56 Blood Pressure Position Supine 09/09/24 04:55 Pulse Oximetry 92 09/09/24 09:10 Oxygen Delivery Method Room Air 09/09/24 08:56 Oxygen Flow Rate 0 09/09/24 08:56 Pain Level 5 09/09/24 04:55 Allergies latex Adverse Reaction (Severe, Verified 09/09/24 05:16) Skin Rash amoxicillin (From Augmentin) Adverse Reaction (Verified 09/09/24 05:16) Agitation azithromycin (From Zithromax) Adverse Reaction (Verified 09/09/24 05:16) headache, hearing loss,double vision, DAVILA ciprofloxacin (From Cipro) Adverse Reaction (Verified 09/09/24 05:16) Dizziness/Lightheade Weak, confused, anxiety clavulanic acid (From Augmentin) Adverse Reaction (Verified 09/09/24 05:16) Agitation codeine Adverse Reaction (Verified 09/09/24 05:16) GI upset doxycycline Adverse Reaction (Verified 09/09/24 05:16) Other (See Comment) tears up my stomach metronidazole (From Flagyl) Adverse Reaction (Verified 09/09/24 05:16) Agitation Penicillins Adverse Reaction (Verified 09/09/24 05:16) Other (See Comment) tears up my stomach Sulfa (Sulfonamide Antibiotics) Adverse Reaction (Verified 09/09/24 05:16) anxious Active Medications Generic Name Dose Route Start Last Admin Trade Name Freq PRN Reason Stop Dose Admin Iohexol 100 ml 09/09/24 06:00 09/09/24 05:53 Omnipaque 350 Mg/Ml 100 Ml Btl IJ 10/09/24 23:59 100 ml DIRECTED AMELIA Administration Iohexol 50 ml 09/09/24 06:00 09/09/24 05:53 Omnipaque 350 Mg/Ml 50 Ml Btl IJ 10/09/24 23:59 50 ml DIRECTED AMELIA Administration Sodium Chloride 50 ml 09/09/24 06:00 09/09/24 05:53 Normal Saline - Diluent 50 Ml Vial IJ 50 ml .FOR DI USE MAELIA Administration IV IV Catheter Type [Left Forearm Saline Lock ] IV Catheter Gauge [Left 20 Forearm] Diagnostics 09/09/24 09/09/24 09/09/24 Range/Units 07:47 07:20 06:15 WBC 4.42 (4.4-10.8) 10^3/uL RBC 3.94 (3.93-5.22) 10^6/uL Hgb 12.5 (11.2-15.7) g/dL Hct 37.9 (36.0-46.0) % MCV 96 H (80-95) fL MCH 31.7 (27.0-33.0) pg MCHC 33.0 (32.0-36.0) % RDW 12.2 (11.7-14.6) % Plt Count 89 L (130-400) 10^3/uL MPV 10.7 (8.0-11.0) fL Immature Gran % 0.0 % Neutrophils % 44.0 % Lymphocytes % 31.0 % Atypical Lymphs % 8 % Monocytes % 11.0 % Eosinophils % 5.0 % Basophils % 0.0 % Metamyelocytes % 1 Nucleated RBC % 0.0 (0.0-0.3) % Absolute Neutrophils 1.94 (1.2-6.7) 10^3/uL Absolute Lymphocytes 1.72 (1.2-3.4) 10^3/uL Absolute Monocytes 0.49 (0.1-0.8) 10^3/uL Absolute Eosinophils 0.22 (0.0-0.7) 10^3/uL Absolute Basophils 0.00 (0.0-0.2) 10^3/uL RBC Morphology Normal PT 10.0 (9.1-11.1) sec INR 1.0 (0.9-1.1) VBG Lactate 0.8 (0.6-1.4) mmol/L Sodium 130 L (136-145) mmol/L Potassium 4.1 (3.5-5.1) mmol/L Chloride 95 L (98-107) mmol/L Carbon Dioxide 31.8 (21.0-32.0) mmol/L Anion Gap 3.2 (3-11) mmol/L BUN 10 (7-18) mg/dL Creatinine 1.0 (0.55-1.02) mg/dL Est GFR (CKD-EPI 2020) 61.75 (mL/min/1.73m2) Glucose 91 (74-106) mg/dL Calcium 8.5 (8.5-10.1) mg/dL Magnesium 1.8 (1.8-2.4) mg/dL Total Bilirubin 0.36 (0.2-1.0) mg/dL AST 24 (15-37) U/L ALT 22 (14-59) U/L Alkaline Phosphatase 57 (46-116) U/L Troponin I Pending 13 14 (<or=51) ng/L Total Protein 6.6 (6.4-8.2) g/dL Albumin 3.6 (3.4-5.0) g/dL Lipase 53 (<78) U/L Vitamin B12 1066 H (193-986) pg/mL TSH 2.08 (0.36-3.74) uIU/mL Urine Color (Yellow) Urine Clarity (Clear) Urine pH (5-8) Ur Specific Saline (1.005-1.025) Urine Protein (Neg-Trace) mg/dL Urine Ketones (Negative) mg/dL Urine Blood (Negative) Urine Nitrite (Negative) Urine Bilirubin (Negative) Urine Urobilinogen (Up to 0.2) mg/dL Ur Leukocyte Esterase (Negative) Urine Glucose (Negative) mg/dL Ethyl Alcohol < 3.0 (<10) mg/dL 09/09/24 Range/Units 04:56 WBC (4.4-10.8) 10^3/uL RBC (3.93-5.22) 10^6/uL Hgb (11.2-15.7) g/dL Hct (36.0-46.0) % MCV (80-95) fL MCH (27.0-33.0) pg MCHC (32.0-36.0) % RDW (11.7-14.6) % Plt Count (130-400) 10^3/uL MPV (8.0-11.0) fL Immature Gran % % Neutrophils % % Lymphocytes % % Atypical Lymphs % % Monocytes % % Eosinophils % % Basophils % % Metamyelocytes % Nucleated RBC % (0.0-0.3) % Absolute Neutrophils (1.2-6.7) 10^3/uL Absolute Lymphocytes (1.2-3.4) 10^3/uL Absolute Monocytes (0.1-0.8) 10^3/uL Absolute Eosinophils (0.0-0.7) 10^3/uL Absolute Basophils (0.0-0.2) 10^3/uL RBC Morphology PT (9.1-11.1) sec INR (0.9-1.1) VBG Lactate (0.6-1.4) mmol/L Sodium (136-145) mmol/L Potassium (3.5-5.1) mmol/L Chloride (98-107) mmol/L Carbon Dioxide (21.0-32.0) mmol/L Anion Gap (3-11) mmol/L BUN (7-18) mg/dL Creatinine (0.55-1.02) mg/dL Est GFR (CKD-EPI 2020) (mL/min/1.73m2) Glucose (74-106) mg/dL Calcium (8.5-10.1) mg/dL Magnesium (1.8-2.4) mg/dL Total Bilirubin (0.2-1.0) mg/dL AST (15-37) U/L ALT (14-59) U/L Alkaline Phosphatase (46-116) U/L Troponin I (<or=51) ng/L Total Protein (6.4-8.2) g/dL Albumin (3.4-5.0) g/dL Lipase (<78) U/L Vitamin B12 (193-986) pg/mL TSH (0.36-3.74) uIU/mL Urine Color Yellow (Yellow) Urine Clarity Clear (Clear) Urine pH 6.0 (5-8) Ur Specific Saline 1.015 (1.005-1.025) Urine Protein Negative (Neg-Trace) mg/dL Urine Ketones Negative (Negative) mg/dL Urine Blood Negative (Negative) Urine Nitrite Negative (Negative) Urine Bilirubin Negative (Negative) Urine Urobilinogen 0.2 (Up to 0.2) mg/dL Ur Leukocyte Esterase Negative (Negative) Urine Glucose Negative (Negative) mg/dL Ethyl Alcohol (<10) mg/dL Intake and Output - 24 Hour Total 09/09/24 04:32 thru 09/09/24 07:35 Intake Total 500 Output Total 350 Balance 150 Weight 73.482 kg Intake: IV 500 Output: Urine 350 Falls Risk Assessment History of Falls Previous History 09/09/24 05:01 Contributing Factors Confusion,Impairments 09/09/24 05:01 Ambulatory Aids Independent 09/09/24 05:01 Tubes/Lines With any additional score 09/09/24 05:01 Gait Evaluation W/any additional score 09/09/24 05:01 Fall Total Score 61 09/09/24 05:01 Level of Risk High Risk 09/09/24 05:01 Problems (Last Reviewed 05/30/24 @ 21:44 by Delbert Tam) Encephalopathy (Acute) Anxiety (Acute) Bipolar I disorder (Chronic) Hyperlipidemia (Chronic) Migraine (Chronic) v v v v v v v v v Sending and/or Receiving Nurses: Please use comment section below to note any information pertinent to the patient hand-off not included above. Information / Comments: report recieved at 0926. All questions answered Report received from: Toyin Jackson RN
[2024-09-09 09:49] LABS: Troponin I 13 ng/L (<or=51)
[2024-09-09] MEDS: Normal Saline Flush 10 ML SYR IVP ×2 (10:08→21:07)
[2024-09-09] MEDS: cloNIDine 0.1 MG TAB PO ×2 (10:09→18:03)
[2024-09-09] MEDS: amLODIPine 5 MG TAB PO (10:09)
[2024-09-09] MEDS: Aspirin 81 MG CHEW PO (10:09)
[2024-09-09] MEDS: lamoTRIgine 100 MG TAB PO (10:09)
[2024-09-09] MEDS: Metoprolol CR 25 MG TABCR PO (10:09)
[2024-09-09] MEDS: Acetaminophen 325 MG TAB PO ×2 (10:12→14:46)
[2024-09-09] MEDS: Docusate Sodium 100 MG CAP PO (10:12)
[2024-09-09] MEDS: Cyclobenzaprine 10 MG TAB 5 MG PO ×2 (10:12→14:46)
[2024-09-09] MEDS: Sertraline 100 MG TAB PO (10:15)
--- NOTE | 2024-09-09 11:21 | PHA.REVIEW2 ---
Pharmacy Admission Review Admission Clinical Review Admission Pharmacy Review: Encephalopathy (Acute) Anxiety (Acute) latex Adverse Reaction (Severe, Verified 09/09/24 05:16) Skin Rash amoxicillin (From Augmentin) Adverse Reaction (Verified 09/09/24 05:16) Agitation azithromycin (From Zithromax) Adverse Reaction (Verified 09/09/24 05:16) headache, hearing loss,double vision, DAVILA ciprofloxacin (From Cipro) Adverse Reaction (Verified 09/09/24 05:16) Dizziness/Lightheade clavulanic acid (From Augmentin) Adverse Reaction (Verified 09/09/24 05:16) Agitation codeine Adverse Reaction (Verified 09/09/24 05:16) GI upset doxycycline Adverse Reaction (Verified 09/09/24 05:16) Other (See Comment) metronidazole (From Flagyl) Adverse Reaction (Verified 09/09/24 05:16) Agitation Penicillins Adverse Reaction (Verified 09/09/24 05:16) Other (See Comment) Sulfa (Sulfonamide Antibiotics) Adverse Reaction (Verified 09/09/24 05:16) anxious Resuscitation Status Full Code Height 5 ft 4 in Weight 73.482 kg Pharmacy Admission Review Renal Dosing Renal Dosing: BUN 10 mg/dL (7-18) 09/09/24 06:15 Creatinine 1.0 mg/dL (0.55-1.02) 09/09/24 06:15 Medications needing adjustments: Reviewed (CrCl 53.62 mL/min) List of meds needing interventions: Current medications are okay Anticoagulation Anticoagulation: Hgb 12.5 g/dL (11.2-15.7) 09/09/24 06:15 Hct 37.9 % (36.0-46.0) 09/09/24 06:15 Plt Count 89 10^3/uL (130-400) L 09/09/24 06:15 INR 1.0 (0.9-1.1) 09/09/24 06:15 Creatinine 1.0 mg/dL (0.55-1.02) 09/09/24 06:15 DVT Prophylaxis: Reviewed Medications: Enoxaparin (40mg daily) Relevant Labs Relevant Labs: Sodium 130 mmol/L (136-145) L 09/09/24 06:15 Potassium 4.1 mmol/L (3.5-5.1) 09/09/24 06:15 Chloride 95 mmol/L (98-107) L 09/09/24 06:15 Magnesium 1.8 mg/dL (1.8-2.4) 09/09/24 06:15 Electrolytes, C-Reactive P, ESR: Reviewed (Na 130) Cardiac Review Cardiac Review: Troponin I 13 ng/L (<or=51) 09/09/24 09:28 Blood Pressure 140/70 0949 Blood Pressure 160/64 0921 Blood Pressure 130/61 0856 Blood Pressure 149/56 0854 Blood Pressure 160/64 0831 Blood Pressure 150/111 0816 Blood Pressure 172/77 0812 Blood Pressure 158/80 0756 Blood Pressure 152/67 0746 Blood Pressure 156/64 0736 BP, HR, EF%: Reviewed (HR WNL) List meds needing interventions: Has order for amlodipine 5mg daily, clonidine 0.1mg q8h and metoprolol XL 25mg daily QTc Review QTc: Reviewed (405 from 09/09/23) IV to PO Switch IV Medications: Reviewed Home Meds Home Med List reviewed: Reviewed Relevent Home Meds Not ordered & why?: ibuprofen (PRN) Per nurse patient reports taking rizatriptan at home as needed for migraines. Verified this using [facility] and added rizatriptan 10mg ODT PRN migraine to home med list. Informed provider. Verified diazepam order via [facility] - filled diazepam 2mg tabs qty 56 for 14 day supply on 07/16/24 - unsure if patient takes as scheduled or PRN Changed Rexulti to patients own order (non-formulary) and called nursing to see if this could be brought in for the patient. Waiting to hear back. Current Meds Current Medication Order Review: Intervened Comments: Changed esomeprazole timing from 0830 to 0730 per pharmacy protocol Added 2nd PRN to milk of magnesia and cyclobenzaprine orders Retimed diazepam to start at 2000 as patient had received a 2mg now dose at 0742. Put in another now one of 2mg this morning at 1015 to equal patients usual 4mg dose.
[2024-09-09] MEDS: Ondansetron O.D.T. 4 MG TABEF PO (12:25)
[2024-09-09] MEDS: Esomeprazole 40 MG CAPCR PO (12:31)
[2024-09-09] MEDS: Polyethylene Glycol 3350 17 GM PACKET PO (15:56)
[2024-09-09] MEDS: traZODone 100 MG TAB 250 MG PO (20:58)
[2024-09-09] MEDS: diazePAM 2 MG TAB 4 MG PO (20:59)
[2024-09-09] MEDS: Atorvastatin 10 MG TAB PO (21:00)
[2024-09-09] MEDS: Melatonin 3 MG TAB 6 MG PO (21:00)
[2024-09-09] MEDS: hydrOXYzine HCL 50 MG TAB PO (21:01)
[2024-09-09] MEDS: lamoTRIgine 100 MG TAB 200 MG PO (21:01)
[2024-09-10 02:16] VITALS: BP 106/58; PULSE 61; RESP 28; TEMP 36.8; O2SAT 95
[2024-09-10] MEDS: cloNIDine 0.1 MG TAB PO ×2 (02:20→11:33)
[2024-09-10] MEDS: Acetaminophen 325 MG TAB PO (02:23)
[2024-09-10 06:32] LABS: HGB 12.1 g/dL (11.2-15.7); MCH 32.4 pg (27.0-33.0); MCHC 33.6 % (32.0-36.0); MCV 97 fL (80-95); MPV 11.1 fL (8.0-11.0); RBC 3.73 10^6/uL (3.93-5.22); RDW 12.5 % (11.7-14.6); RDW-SD 43.8 fL; WBC 4.75 10^3/uL (4.4-10.8)
[2024-09-10 06:59] LABS: Platelet Count 95 10^3/uL (130-400)
[2024-09-10 07:04] LABS: Chloride 103 mmol/L (98-107); Potassium 4.2 mmol/L (3.5-5.1); Sodium 137 mmol/L (136-145)
[2024-09-10 07:06] LABS: Anion Gap 3.5 mmol/L (3-11); BUN 9 mg/dL (7-18); CO2 30.5 mmol/L (21.0-32.0); Calcium 9.2 mg/dL (8.5-10.1); Estimated GFR 61.75 (mL/min/1.73m2); Glucose 105 mg/dL (74-106); Magnesium 1.6 mg/dL (1.8-2.4)
[2024-09-10 07:39] VITALS: BP 124/65; PULSE 58; RESP 14; TEMP 36.8; O2SAT 92
--- NOTE | 2024-09-10 08:00 | DI.MRI_ITS ---
Exam(s) MR BRAIN WO EXAM: MR BRAIN WO CLINICAL HISTORY: AMS, ?CVA TECHNIQUE: Multiplanar multisequence MRI of the brain was performed. COMPARISON: MR MR BRAIN WO from 05/31/[address] BRAIN NECK CTA from 09/09/2024 FINDINGS: The examination is limited due to patient motion artifact. VENTRICLES AND EXTRA AXIAL SPACES: Normal in size and morphology for the patient's age. MIDLINE SHIFT: None. CEREBRAL PARENCHYMA: No focus of restricted diffusion to suggest acute infarct. No space-occupying le ruby identified. There are multiple areas of hyperintense signal seen in the white matter on the FLAI R and T2 weighted images most consistent with chronic microvascular ischemic disease. HEMORRHAGE: None. BRAINSTEM/CEREBELLUM: Normal. CALVARIUM: Normal. VISUALIZED PARANASAL SINUSES/MASTOIDS:Clear. [place]: Normal flow void. [place]: Unremarkable. OTHER FINDINGS: None. IMPRESSION: 1. No evidence of an acute infarct. 2. Findings most consistent with chronic microvascular ischemic disease. DATA REPOSITORY:
[2024-09-10] MEDS: Milk of Magnesia 30 ML CUP 5 ML PO (08:42)
[2024-09-10] MEDS: Docusate Sodium 100 MG CAP PO (08:42)
[2024-09-10] MEDS: Metoprolol CR 25 MG TABCR PO (08:43)
[2024-09-10] MEDS: Aspirin 81 MG CHEW PO (08:43)
[2024-09-10] MEDS: Esomeprazole 40 MG CAPCR PO (08:43)
[2024-09-10] MEDS: amLODIPine 5 MG TAB PO (08:43)
[2024-09-10] MEDS: Sertraline 100 MG TAB PO (08:43)
[2024-09-10] MEDS: Enoxaparin 40 MG/0.4 ML SYR SC (08:44)
[2024-09-10] MEDS: diazePAM 2 MG TAB 4 MG PO (08:44)
[2024-09-10] MEDS: lamoTRIgine 100 MG TAB PO (08:48)
[2024-09-10] MEDS: Ondansetron O.D.T. 4 MG TABEF PO (09:19)
[2024-09-10] MEDS: Normal Saline Flush 10 ML SYR IVP (09:20)
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
[2024-09-10 11:35] VITALS: BP 142/79; PULSE 64; RESP 16; TEMP 35.8; O2SAT 92
[2024-09-10] MEDS: Cyclobenzaprine 10 MG TAB 5 MG PO (11:43)
--- NOTE | 2024-09-10 12:15 | DSE_ITS ---
Date of service: 09/10/24 Time of Service: 12:15 DS: Diagnosis Discharge Diagnosis (1) Encephalopathy: Status: Acute (2) Anxiety: Status: Acute (3) Bipolar I disorder: Status: Chronic (4) Hypertension: Status: Resolved (5) Hyperlipidemia: Status: Chronic (6) Migraine: Status: Chronic Discharge Plan Disposition Patient Disposition: Home Condition: Good Discharge Details Reason For Visit: AMS Admit Date/Time: 09/09/24 09:32 Admit Provider: Dewayne Matias Attending Provider: Dewayne Matias Primary Care Provider: Cathie Strange [facility] Course Hospital Course: Patient initially presented with signs and symptoms initially concerning for CVA with acute confusion. However, after discussing with the patient, and explaining that all of results have been negative that she stated I will, I guess it was just nervous. Patient does have significant psychiatric history and periods of what appears to be encephalopathy but are likely just significant periods of anxiety and confusion. Ultimately, it was determined that the patient was stable for discharge home. Home Meds and New Rx's Prescriptions: Continued lamotrigine 200 mg tablet 200 mg PO QHS lamotrigine 100 mg tablet 100 mg PO QAM magnesium hydroxide [Estevez Milk of Magnesia] 400 mg/5 mL suspension 5 ml PO DAILY PRN diclofenac sodium [Voltaren Arthritis Pain] 1 % gel 2 g topical QID PRN (Reason: joint pain) Qty: 100 1RF Rx Instructions: apply to single elbow, wrist or hand; for hand includes palm/fingers/back of hand esomeprazole magnesium [Nexium] 40 mg capsule,delayed release(DR/EC) 40 mg PO DAILY ondansetron HCl 4 mg tablet 4 mg PO Q8H PRN (Reason: nausea and vomiting) Qty: 20 0RF atorvastatin [Lipitor] 10 mg tablet 10 mg PO QHS diazepam 2 mg tablet 4 mg PO BID cyclobenzaprine 5 mg tablet 5 mg PO TID PRN (Reason: muscle spasm) Qty: 30 0RF trazodone 100 mg tablet 250 mg PO QHS sertraline 100 mg tablet 100 mg PO DAILY acetaminophen 325 mg Tablet 650 mg PO Q6H PRNQty: 40 0RF amlodipine 5 mg Tablet 5 mg PO DAILY Qty: 30 0RF docusate sodium [Colace] 100 mg Capsule 100 mg PO TID PRN PRNQty: 90 0RF aspirin [Children's Aspirin] 81 mg Tablet,Chewable 81 mg PO DAILY Qty: 30 0RF hydroxyzine HCl 50 mg Tablet 50 mg PO HS Qty: 30 0RF melatonin 3 mg Tablet 6 mg PO HS Qty: 60 0RF ibuprofen 200 mg capsule 400 mg PO Q6H PRNQty: 240 0RF Rexulti 2 mg tablet 3 mg PO DAILY metoprolol succinate 25 mg tablet extended release 24 hr 25 mg PO DAILY Qty: 30 0RF clonidine HCl 0.1 mg tablet 0.1 mg PO Q8H rizatriptan 10 mg tablet,disintegrating 10 mg PO ONCE PRN Discharge Instructions Stand Alone Forms: Nursing Discharge Form Referrals: Cathie Strange NP [Primary Care Provider] - 09/17/24 1:20 pm Activity:: Activity as Tolerated Equipment/Supplies:: No Equipment Needed Diet:: As Tolerated Discharge Orders Discharge Orders: Discharge Order (Routine); Ordered 09/10/24 Ordered By: Dewayne Matias DS: Summary Time Spent with Patient providing and/or coordinating discharge services: Greater than 30 minutes Status at Discharge Functional status at discharge: independent ambulation Overall status at discharge: patient is back to baseline Mental Status: mental status grossly normal Speech and Movement: speech and movement normal Mood: congruent mood Affect: normal affect Quality:SDOH Health Related Social Needs: Health related social needs feeling lonely/isolated (Z 60.8) Exam Narrative Exam Narrative: Well-appearing elderly female laying in bed in no acute distress, ANO x 4, heart regular rhythm, lungs, auscultation bilaterally, abdomen soft, nontender, nondistended Psych Mental Status: mental status grossly normal Speech and Movement: speech and movement normal Mood: congruent mood Affect: normal affect DS: Data Vitals/I&O Vitals and I&O: Vital Signs Temperature 96.4 F L 09/10/24 11:35 Temperature Source Tympanic 09/10/24 11:35 Pulse 64 09/10/24 11:35 Pulse Rhythm Regular 09/09/24 09:49 Pulse 64 09/09/24 09:10 Respiratory Rate 16 09/10/24 11:35 Respiratory Effort Normal, Non-Labored 09/09/24 09:49 Respiratory Depth Normal 09/09/24 09:49 Respiratory Pattern Normal 09/09/24 09:49 Blood Pressure 142/79 H 09/10/24 11:35 Blood Pressure Mean 84 09/09/24 08:56 Blood Pressure Position Supine 09/09/24 04:55 Pulse Oximetry 92 09/10/24 11:35 Oxygen Delivery Method Room Air 09/10/24 11:35 Oxygen Flow Rate 0 09/10/24 11:35 Pain Level 6 09/10/24 08:44 Comment RN Notified 09/09/24 23:47 Intake & Output 09/09/24 09/10/24 09/10/24 17:59 05:59 17:59 Intake Total 1480 / 1480 1100 / 2580 Output Total 1450 / 1450 1500 / 2950 Balance 30 / 30 -400 / -370 Weight 162 lb Intake: IV 500 / 500 Oral 980 / 980 1100 / 2080 Output: Urine 1450 / 1450 1500 / 2950 Other: Urine Color Pale Pale Urine Appearance Clear Clear Urine Odor None Comment pT reports she has voided multiple times this morning. Stool Size Small Data Completed and Pending Labs on day of discharge: Labs from last 24 hours 09/10/24 06:16 WBC 4.75 RBC 3.73 L Hgb 12.1 Hct 36.0 MCV 97 H MCH 32.4 MCHC 33.6 RDW 12.5 Plt Count 95 L MPV 11.1 H Sodium 137 Potassium 4.2 Chloride 103 Carbon Dioxide 30.5 Anion Gap 3.5 BUN 9 Creatinine 1.0 Est GFR (CKD-EPI 2020) 61.75 Glucose 105 Calcium 9.2 Magnesium 1.6 L PFSH All Active Problems (Updated 09/09/24 @ 08:00 by Delia Montalvo MD) Encephalopathy (Acute) Withdrawal complaint (Acute) Hypomagnesemia (Acute) Hypertension (Chronic) Gram-positive bacteremia (Acute) Anxiety (Acute) Bipolar disorder (Acute) Bipolar I disorder (Chronic) [facility] Psychiatry Diverticular stricture (Chronic) Followed by [facility] Colon stricture (Chronic) Followed by [facility] Cramer's esophagus (Chronic) On 2009 EGD, not on 2012 EGD, on 2023 EGD Gastroesophageal reflux disease with esophagitis (Chronic) Diverticulosis of colon (Chronic) Chronic diarrhea (Chronic) Hyperlipidemia (Chronic) Hiatal hernia (Chronic) Migraine (Chronic) 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) Glaucoma (Chronic) Allergic rhinitis (Chronic) Medical History TMJ (temporomandibular joint disorder) Diverticulitis of sigmoid colon Multiple episodes, seeing [facility] Diabetes mellitus Surgical History S/P cholecystectomy S/P BSO (bilateral salpingo-oophorectomy) (07/03/15) Status post foot surgery History of total vaginal hysterectomy (TVH) (07/03/15) With cystoscopy and rectocele repair History of esophagogastroduodenoscopy History of bilateral ligation of fallopian tubes Family History Mother Stroke Lung cancer Hypertension Father Heart disease Hyperlipidemia Hypertension Brother Heart disease DOUBLE BYPASS AGE 48 (NON SMOKER) Hyperlipidemia Son Depression Daughter Depression Maternal Grandfather Lung cancer Maternal Grandmother Heart disease Myocardial infarction Paternal Grandfather No problems noted. Paternal Grandmother Diabetes Social History Smoking/Tobacco Use Status: Former Tobacco Use Quit Date: 09/05/77 Smoking risk assessment performed?: Yes Alcohol Intake: never Drug use: Never Substance use type: does not use Housing: house Do you feel safe at home: Yes Do you feel safe in your relationship?: Yes Additional Social history: lives alone Time Spent with Patient Time Spent with Patient: <45 minutes Time was spent: preparing to see the patient(eg.review tests), obtaining and/or reviewing separately otained hiistory, ordering medications,tests, procedures, referring, communicating with other health healthcare sales representative, indepentently interpreting results, counseling the patient and care coordination
== END 2024-09-10 12:53 | disposition home or self-care (01) ==
LOC: ER 08:09 → MS 09:34
PROVIDERS: Admitting Provider Family Medicine; Emergency Provider Emergency Medicine; PCP Nurse Practitioner Family; Visit Provider Family Medicine
DX: G93.40 Encephalopathy, unspecified (principal); F31.9 Bipolar disorder, unspecified; F41.9 Anxiety disorder, unspecified; Z79.899 Other long term (current) drug therapy; I10 Essential (primary) hypertension; E78.5 Hyperlipidemia, unspecified; Z86.73 Personal history of transient ischemic attack (TIA), and cerebral infarction without residual deficits; F10.90 Alcohol use, unspecified, uncomplicated; G43.909 Migraine, unspecified, not intractable, without status migrainosus; R42 Dizziness and giddiness; R10.31 Right lower quadrant pain; K21.00 Gastro-esophageal reflux disease with esophagitis, without bleeding; K57.30 Diverticulosis of large intestine without perforation or abscess without bleeding; K22.70 Barrett's esophagus without dysplasia
CPT/HCPCS: 00123; 36415; 36569; 70496; 70498; 80048; 80053; 83690; 85027; 93005; 96360; 96372; 99285; J1650; 70551; 74177; 80320; 81003; 82607; 83605; 83735; 84443; 84484; 85025; 85610; 93010; 99223; 99239; G0378; J3490; Q9967

== ENCOUNTER 2024-09-27 12:13 | Emergency (ER) | payer MEDICARE, MEDICAID, SELFPAY ==
[2024-09-27] VITALS (30 sets, daily range): BP systolic 172–213; BP diastolic 66–150; PULSE 52–115; RESP 11–33; O2SAT 87–97
--- NOTE | 2024-09-27 12:15 | RT.EKG_ITS ---
APPROVED REPORT Exam: Resting ECG Reason for Exam: IRREGULAR HEART RATE Patient Location: E HR:103 bpm ECG Measurements Heart Rate 103 AXIS WV 159 P 60 QRSd 97 QRS 2 QT 354 T 35 QTc 468 Conclusion Sinus tachycardia 103 PVC no stemi
[2024-09-27 13:14] LABS: Abs Immature Grans 0.36 10^3/uL (0.0-0.06); HCT 44.6 % (36.0-46.0); HGB 14.7 g/dL (11.2-15.7); MCH 31.7 pg (27.0-33.0); MCV 96 fL (80-95); MPV 10.1 fL (8.0-11.0); Platelet Count 116 10^3/uL (130-400); RBC 4.64 10^6/uL (3.93-5.22); RDW 12.2 % (11.7-14.6); RDW-SD 42.9 fL; WBC 5.83 10^3/uL (4.4-10.8)
[2024-09-27] MEDS: Prochlorperazine 10 MG/2 ML VIAL 5 MG IVP ×2 (13:25→15:40)
[2024-09-27] MEDS: ACETAMINOPHEN 1,000 MG/100 ML BAG 400 MG IVPB (13:25)
[2024-09-27] MEDS: Normal Saline 500 ML IV (13:25)
[2024-09-27 13:28] LABS: Absolute Basophil Count 0.06 10^3/uL (0.0-0.2); Absolute Eosinophil Count 0.12 10^3/uL (0.0-0.7); Absolute Lymphocyte Count 1.52 10^3/uL (1.2-3.4); Absolute Monocyte Count 1.34 10^3/uL (0.1-0.8); Absolute Neutrophil Count 2.74 10^3/uL (1.2-6.7)
[2024-09-27 13:29] LABS: Diff Comment Manual Differential; Metamyelocytes % 1; RBC Morphology Normal
[2024-09-27 13:34] LABS: ALT 17 U/L (14-59); AST 11 U/L (15-37); Albumin 4.5 g/dL (3.4-5.0); Alkaline Phosphatase 63 U/L (46-116); Anion Gap 8.3 mmol/L (3-11); BUN 12 mg/dL (7-18); Bilirubin, Total 0.32 mg/dL (0.2-1.0); CO2 30.7 mmol/L (21.0-32.0); Calcium 9.8 mg/dL (8.5-10.1); Chloride 102 mmol/L (98-107); Estimated GFR 61.75 (mL/min/1.73m2); Glucose 106 mg/dL (74-106); Magnesium 1.8 mg/dL (1.8-2.4); Potassium 4.3 mmol/L (3.5-5.1); Sodium 141 mmol/L (136-145); Total Protein 8.5 g/dL (6.4-8.2); Troponin I 5 ng/L (<or=51)
[2024-09-27 14:27] LABS: Troponin I 5 ng/L (<or=51)
[2024-09-27 15:41] LABS: Bilirubin Negative (Negative); Blood Negative (Negative); Clarity Clear (Clear); Glucose Negative (Negative); Ketones Negative (Negative); Leukocyte Esterase Trace (Negative); Nitrite Negative (Negative); Urobilinogen 0.2 mg/dL (Up to 0.2)
--- NOTE | 2024-09-27 15:49 | ED.GENADUL_ITS ---
Discharge Plan Disposition Patient Disposition: Home Condition: Stable Discharge Details Clinical Impression: Headache Primary Care Provider: Cathie Strange ED Provider: Kathleen Bartlett Home Meds and New Rx's Prescriptions: New amlodipine 2.5 mg tablet 2.5 mg PO DAILY Qty: 14 0RF Continued lamotrigine 200 mg tablet 200 mg PO QHS lamotrigine 100 mg tablet 100 mg PO QAM amlodipine 5 mg tablet 5 mg PO DAILY Qty: 90 3RF aspirin [Children's Aspirin] 81 mg tablet,chewable 81 mg PO DAILY Qty: 90 3RF atorvastatin [Lipitor] 10 mg tablet 10 mg PO DAILY Qty: 90 3RF esomeprazole magnesium [Nexium] 40 mg capsule,delayed release(DR/EC) 40 mg PO DAILY ondansetron HCl 4 mg tablet 4 mg PO Q8H PRN (Reason: nausea and vomiting) Qty: 20 0RF trazodone 100 mg tablet 250 mg PO QHS cyclobenzaprine 5 mg tablet 5 mg PO TID PRN (Reason: muscle spasm) Qty: 30 0RF Rexulti 3 mg tablet 3 mg PO DAILY diclofenac sodium [Voltaren Arthritis Pain] 1 % gel 2 g topical QID PRN (Reason: joint pain) Qty: 100 1RF Rx Instructions: apply to single elbow, wrist or hand; for hand includes palm/fingers/back of hand sertraline 100 mg tablet 100 mg PO DAILY rizatriptan 10 mg tablet,disintegrating 10 mg PO TID PRN Discharge Instructions Instructions: Headache, Adult ED Additional Instructions: Please take the Flexeril 5 to 10 mg every 8 hours as needed for muscle pain, you may apply Motrin gel over the areas of tenderness on your back and on your scapular region Take Tylenol 500 mg every 6 hours Increase your amlodipine to 7.5 mg daily, you are taking 5 mg, add 2.5 mg of amlodipine to your regimen daily Please follow-up with your primary care physician tomorrow for reassessment and return earlier should you have new or worsening complaints Referrals: Cathie Strange, KANDI [Primary Care Provider] - 1 day Discharge Data Discharge Date/Time-TO BE ENTERED AT DEPARTURE: 09/27/24 16:04 HPI General Date/Time Provider Initiated Documentation: 09/27/24 12:32 . HPI Narrative: This 69-year-old female presents with report of high blood pressure. Patient states that she saw her provider today and secondary to her blood pressure being elevated she was sent for assessment. She does state her blood pressure was elevated when she saw her PCP several days ago. She states that she was started on amlodipine at that time. She does have a headache and some back pain. She states she has a history of chronic back pain and intermittent headaches and that these are in a similar location although slightly more prominent. She denies stiff neck or vision change. She does states she has a tremor she is attributing this to the Rexulti and she is planning on reviewing that with her primary care doctor. Patient denies any additional complaints at this time. Related Data Home Medications ?Medication ?Instructions ?Recorded ?Confirmed sertraline 100 mg tablet 100 mg PO DAILY 09/30/23 09/27/24 lamotrigine 100 mg tablet 100 mg PO QAM 10/21/23 09/27/24 lamotrigine 200 mg tablet 200 mg PO QHS 10/21/23 09/27/24 esomeprazole magnesium 40 mg 40 mg PO DAILY 12/30/23 09/27/24 capsule,delayed release (Nexium) ondansetron HCl 4 mg tablet 4 mg PO Q8H PRN nausea and 05/24/24 09/27/24 vomiting #20 tabs trazodone 100 mg tablet 250 mg PO QHS 09/07/24 09/27/24 cyclobenzaprine 5 mg tablet 5 mg PO TID PRN muscle spasm #30 09/12/24 09/27/24 tabs brexpiprazole 3 mg tablet (Rexulti) 3 mg PO DAILY 09/13/24 09/27/24 amlodipine 5 mg tablet 5 mg PO DAILY #90 tabs 09/24/24 09/27/24 aspirin 81 mg chewable tablet 81 mg PO DAILY #90 tabs 09/25/24 09/27/24 (Children's Aspirin) atorvastatin 10 mg tablet (Lipitor) 10 mg PO DAILY #90 tabs 09/25/24 09/27/24 diclofenac sodium 1 % topical gel 2 g topical QID PRN joint pain 09/25/24 09/27/24 (Voltaren Arthritis Pain) #100 grams amlodipine 2.5 mg tablet 2.5 mg PO DAILY #14 tabs 09/27/24 rizatriptan 10 mg disintegrating 10 mg PO TID PRN 09/27/24 09/27/24 tablet Previous Rx's ?Medication ?Instructions ?Recorded ondansetron HCl 4 mg tablet 4 mg PO Q8H PRN nausea and 05/24/24 vomiting #20 tabs cyclobenzaprine 5 mg tablet 5 mg PO TID PRN muscle spasm #30 09/12/24 tabs amlodipine 5 mg tablet 5 mg PO DAILY #90 tabs 09/24/24 aspirin 81 mg chewable tablet 81 mg PO DAILY #90 tabs 09/25/24 (Children's Aspirin) atorvastatin 10 mg tablet (Lipitor) 10 mg PO DAILY #90 tabs 09/25/24 diclofenac sodium 1 % topical gel 2 g topical QID PRN joint pain 09/25/24 (Voltaren Arthritis Pain) #100 grams amlodipine 2.5 mg tablet 2.5 mg PO DAILY #14 tabs 09/27/24 Allergies Allergy/AdvReac Type Severity Reaction Status Date / Time latex AdvReac Severe Skin Rash Verified 09/09/24 05:16 amoxicillin (From Augmentin) AdvReac Agitation Verified 09/09/24 05:16 azithromycin (From Zithromax) AdvReac headache, Verified 09/09/24 05:16 hearing loss,double vision, DAVILA ciprofloxacin (From Cipro) AdvReac Dizziness/L Verified 09/09/24 05:16 ightheade clavulanic acid (From AdvReac Agitation Verified 09/09/24 05:16 Augmentin) codeine AdvReac GI upset Verified 09/09/24 05:16 doxycycline AdvReac Other (See Verified 09/09/24 05:16 Comment) metronidazole (From Flagyl) AdvReac Agitation Verified 09/09/24 05:16 Penicillins AdvReac Other (See Verified 09/09/24 05:16 Comment) Sulfa (Sulfonamide AdvReac anxious Verified 09/09/24 05:16 Antibiotics) General Stated Complaint: GenMedical MARIAM: 3 Exam Narrative Exam Narrative: Alert and oriented 69-year-old female in no acute distress, pupils equal round reactive to light and accommodation, extraocular muscles intact, no meningismus, no carotid bruit, lungs clear to auscultation, cardiac rate rhythm regular, alert and oriented x 4, GCS 15, cranial nerves intact, ambulatory steady gait, no peripheral edema Course Vital Signs Vital signs: Vital Signs Pulse 58 L 09/27/24 12:16 Respiratory Rate 17 09/27/24 12:16 Blood Pressure 213/118 H 09/27/24 12:16 Pulse Oximetry 96 09/27/24 12:16 Pulse 52 L 09/27/24 15:44 Pulse 91 H 09/27/24 15:44 Respiratory Rate 17 09/27/24 15:44 Respiratory Effort Normal 09/27/24 12:29 Blood Pressure 185/99 H 09/27/24 15:44 Blood Pressure Mean 124 09/27/24 15:44 Blood Pressure Position Sitting 09/27/24 12:21 Pulse Oximetry 95 09/27/24 15:44 Oxygen Delivery Method Room Air 09/27/24 12:21 Oxygen Flow Rate 0 09/27/24 12:21 Pain Level 5 09/27/24 12:21 Lab/Test Results Lab/Test Results: Laboratory Tests Range/Units 09/27/24 09/27/24 09/27/24 13:00 14:02 15:20 WBC (4.4-10.8) 10^3/uL 5.83 RBC (3.93-5.22) 10^6/uL 4.64 Hgb (11.2-15.7) g/dL 14.7 Hct (36.0-46.0) % 44.6 MCV (80-95) fL 96 H MCH (27.0-33.0) pg 31.7 MCHC (32.0-36.0) % 33.0 RDW (11.7-14.6) % 12.2 Plt Count (130-400) 10^3/uL 116 L MPV (8.0-11.0) fL 10.1 Immature Gran % See Differential Neutrophils % % 47.0 Lymphocytes % % 26.0 Monocytes % % 23.0 Eosinophils % % 2.0 Basophils % % 1.0 Metamyelocytes % 1 Nucleated RBC % (0.0-0.3) % 0.0 Absolute Neutrophils (1.2-6.7) 10^3/uL 2.74 Absolute Lymphocytes (1.2-3.4) 10^3/uL 1.52 Absolute Monocytes (0.1-0.8) 10^3/uL 1.34 H Absolute Eosinophils (0.0-0.7) 10^3/uL 0.12 Absolute Basophils (0.0-0.2) 10^3/uL 0.06 RBC Morphology Normal Sodium (136-145) mmol/L 141 Potassium (3.5-5.1) mmol/L 4.3 Chloride (98-107) mmol/L 102 Carbon Dioxide (21.0-32.0) mmol/L 30.7 Anion Gap (3-11) mmol/L 8.3 BUN (7-18) mg/dL 12 Creatinine (0.55-1.02) mg/dL 1.0 Est GFR (CKD-EPI 2020) (mL/min/1.73m2) 61.75 Glucose (74-106) mg/dL 106 Calcium (8.5-10.1) mg/dL 9.8 Magnesium (1.8-2.4) mg/dL 1.8 Total Bilirubin (0.2-1.0) mg/dL 0.32 AST (15-37) U/L 11 L ALT (14-59) U/L 17 Alkaline Phosphatase (46-116) U/L 63 Troponin I (<or=51) ng/L 5 5 Total Protein (6.4-8.2) g/dL 8.5 H Albumin (3.4-5.0) g/dL 4.5 Urine Color (Yellow) Yellow Urine Clarity (Clear) Clear Urine pH (5-8) 7.0 Ur Specific [place] (1.005-1.025) 1.010 Urine Protein (Neg-Trace) mg/dL Negative Urine Ketones (Negative) mg/dL Negative Urine Blood (Negative) Negative Urine Nitrite (Negative) Negative Urine Bilirubin (Negative) Negative Urine Urobilinogen (Up to 0.2) mg/dL 0.2 Ur Leukocyte Esterase (Negative) Trace H Urine Glucose (Negative) mg/dL Negative Range/Units 09/27/24 15:33 WBC (4.4-10.8) 10^3/uL RBC (3.93-5.22) 10^6/uL Hgb (11.2-15.7) g/dL Hct (36.0-46.0) % MCV (80-95) fL MCH (27.0-33.0) pg MCHC (32.0-36.0) % RDW (11.7-14.6) % Plt Count (130-400) 10^3/uL MPV (8.0-11.0) fL Immature Gran % Neutrophils % % Lymphocytes % % Monocytes % % Eosinophils % % Basophils % % Metamyelocytes % Nucleated RBC % (0.0-0.3) % Absolute Neutrophils (1.2-6.7) 10^3/uL Absolute Lymphocytes (1.2-3.4) 10^3/uL Absolute Monocytes (0.1-0.8) 10^3/uL Absolute Eosinophils (0.0-0.7) 10^3/uL Absolute Basophils (0.0-0.2) 10^3/uL RBC Morphology Sodium (136-145) mmol/L Potassium (3.5-5.1) mmol/L Chloride (98-107) mmol/L Carbon Dioxide (21.0-32.0) mmol/L Anion Gap (3-11) mmol/L BUN (7-18) mg/dL Creatinine (0.55-1.02) mg/dL Est GFR (CKD-EPI 2020) (mL/min/1.73m2) Glucose (74-106) mg/dL Calcium (8.5-10.1) mg/dL Magnesium (1.8-2.4) mg/dL Total Bilirubin (0.2-1.0) mg/dL AST (15-37) U/L ALT (14-59) U/L Alkaline Phosphatase (46-116) U/L Troponin I (<or=51) ng/L Cancelled Total Protein (6.4-8.2) g/dL Albumin (3.4-5.0) g/dL Urine Color (Yellow) Urine Clarity (Clear) Urine pH (5-8) Ur Specific [place] (1.005-1.025) Urine Protein (Neg-Trace) mg/dL Urine Ketones (Negative) mg/dL Urine Blood (Negative) Urine Nitrite (Negative) Urine Bilirubin (Negative) Urine Urobilinogen (Up to 0.2) mg/dL Ur Leukocyte Esterase (Negative) Urine Glucose (Negative) mg/dL Medical Decision Making 69-year-old female presenting in no acute distress with history of headaches and back pain but elevated blood pressure. I did compare this to her prior and it looks like her blood pressure started elevating in the past several weeks and then she was started on amlodipine on Tuesday but has not had significant change yet. Her headache and back pain seem to be relatively chronic and intermittent I do not feel as though she is a hypertensive emergency. Her EKG does not look significantly changed from prior, please see attendings documentation. I do see that patient had recent CTA of her head and neck on 09 September in addition to a CT abdomen and pelvis all of which did not show acute pathology. I see no clear indication for repeating this imaging at this time. CBC is within normal limits for patient chemistry is within normal limits and urinalysis does not show evidence of acute abnormality. Patient was encouraged to follow-up with her primary care physician, I did consider giving antihypertensives, however there is more of a risk associated with this with the benefit. I will add 2.5 mg of amlodipine to her 5 mg of amlodipine and have her reassessed on Tuesday. Her headache is improved after Compazine and traditional migraine treatment in the emergency department and she is actually requesting discharge home at this time. Patient does not endorse any chest pain or shortness of breath. She is alert, oriented, in no acute distress and of decisional capacity throughout the entirety of this assessment. Quality:SDOH Health Related Social Needs: Health related social needs housing instability, house d, with risk of homelessness (Z59.811) [facility] All Active Problems (Updated 09/27/24 @ 15:50 by ANKUSH Magaña) Headache (Acute) Bipolar I disorder (Chronic) [facility] Alcohol use disorder (Chronic) Diverticular stricture (Chronic) Followed by [facility] Colon stricture (Chronic) Followed by [facility] Cramer's esophagus (Chronic) On 2009 EGD, not on 2012 EGD, on 2023 EGD Gastroesophageal reflux disease with esophagitis (Chronic) Diverticulosis of colon (Chronic) Chronic diarrhea (Chronic) Hypertension (Chronic) Hyperlipidemia (Chronic) Hiatal hernia (Chronic) Migraine (Chronic) 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) Glaucoma (Chronic) Allergic rhinitis (Chronic) Medical History (Updated 09/27/24 @ 15:50 by ANKUSH Magaña) TIA (transient ischemic attack) (~05/2024) TMJ (temporomandibular joint disorder) Diverticulitis of sigmoid colon Multiple episodes, seeing [facility] Diabetes mellitus Surgical History S/P cholecystectomy S/P BSO (bilateral salpingo-oophorectomy) (07/03/15) Status post foot surgery History of total vaginal hysterectomy (TVH) (07/03/15) With cystoscopy and rectocele repair History of esophagogastroduodenoscopy History of bilateral ligation of fallopian tubes Family History Mother Stroke Lung cancer Hypertension Father Heart disease Hyperlipidemia Hypertension Brother Heart disease DOUBLE BYPASS AGE 48 (NON SMOKER) Hyperlipidemia Son Depression Daughter Depression Maternal Grandfather Lung cancer Maternal Grandmother Heart disease Myocardial infarction Paternal Grandfather No problems noted. Paternal Grandmother Diabetes Social History Smoking/Tobacco Use Status: Former Tobacco Use Quit Date: 09/05/77 Smoking risk assessment performed?: Yes Alcohol Intake: never Drug use: Never Substance use type: does not use Housing: house Do you feel safe at home: Yes Do you feel safe in your relationship?: Yes Additional Social history: lives alone
[2024-09-27 15:52] LABS: Bacteria Rare HPF (Negative); C & S Indicated? No; Casts Negative LPF (Negative); Crystals Negative HPF (Negative); Epithelial Cells Few HPF (Negative); Mucus Negative (Negative); Other Cells Few Transitional (Negative); RBC Negative HPF (0-2); WBC 0-2 HPF (0-5)
== END 2024-09-27 16:04 | disposition home or self-care (01) ==
PROVIDERS: Emergency Provider Physician Assistant; PCP Nurse Practitioner Family
DX: R51.9 Headache, unspecified (principal); R45.0 Nervousness; I10 Essential (primary) hypertension; E78.5 Hyperlipidemia, unspecified; E11.9 Type 2 diabetes mellitus without complications; Z79.82 Long term (current) use of aspirin; Z86.73 Personal history of transient ischemic attack (TIA), and cerebral infarction without residual deficits; Z87.891 Personal history of nicotine dependence
CPT/HCPCS: 80053; 93005; 96361; 96374; 96375; 96376; 99284; 81003; 81015; 83735; 84484; 85025; 93010; J0131; J0780

== ENCOUNTER 2024-12-26 18:57 | Emergency (ER) | payer MEDICARE, MEDICAID, SELFPAY ==
[2024-12-26] VITALS (33 sets, daily range): BP systolic 123–184; BP diastolic 56–100; PULSE 63–86; RESP 20; O2SAT 90–95
--- NOTE | 2024-12-26 19:00 | RT.EKG_ITS ---
APPROVED REPORT Exam: Resting ECG Reason for Exam: Near Syncope Patient Location: E HR:66 bpm ECG Measurements Heart Rate 66 AXIS GA 173 P 30 QRSd 96 QRS 7 QT 419 T 39 QTc 441 Conclusion Sinus rhythm...normal P axis, V-rate 60- 99 Sinus Rhythm. Decreased HR from prior09/27/24. WD
--- NOTE | 2024-12-26 19:15 | DI.CT_ITS ---
Exam(s) CT ABDOMEN PELVIS W EXAM: CT ABDOMEN PELVIS W CLINICAL HISTORY: abd pain with eating, diarrhea, hx diverticulosis TECHNIQUE: Imaging Protocol: Axial computed tomography images with coronal and sagittal reformatted images were created and reviewed. CONTRAST MATERIAL: Intravenous: Omnipaque 350 Contrast volume:75 mL Oral: No COMPARISON: CT CT ABDOMEN PELVIS W from 03/10/[address] ABDOMEN PELVIS W from 09/09/2024 FINDINGS: ABDOMEN: Lung Bases: There is scarring seen in the lung bases bilaterally. Liver: Normal density. No measurable mass. Portal, Superior Mesenteric, and Splenic Veins: Unremarkable. Gallbladder and Biliary Tract: Status post cholecystectomy. No significant biliary ductal dilatation is present. Pancreas: Normal density, no abnormal calcifications or inflammatory process. Spleen: There is a stable round hypodensity in the spleen. This may represent a cyst or hemangioma. Adrenals: No masses seen. Kidneys: Normal size, contour and axis. No radiodense stones or obstructive uropathy. There is a fat density stable 2 cm mass in the left kidney consistent with a benign lesion such as an angiomyolipoma . No follow-up is recommended. Abdominal Aorta: Abdominal portion non-dilated. Atherosclerotic calcification is present. Bowel: There is diverticulosis of the colon, but no evidence of acute diverticulitis. The cecum is l ocated to the left of midline. The stomach is incompletely distended limiting evaluation. There is no evidence of bowel obstruction or bowel wall thickening. There is no pneumatosis. The appendix is located to the left of midline and is unremarkable. Peritoneal Cavity: No ascites, collection or mesenteric inflammatory response. No free air. Lymph Nodes: Within normal limits. Bones: Within normal limits for the patient's age. There is grade 1 pseudo spondylolisthesis of L4 o n L5. Soft Tissues: Unremarkable. PELVIS: Bladder: Symmetric distention, no gross wall thickening. Reproductive Organs: Status post hysterectomy. Lymph Nodes: Within normal limits. Bones: Within normal limits for the patient's age. IMPRESSION: 1. Colonic diverticulosis without evidence of acute diverticulitis. 2. 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 No follow-up is recommended. 3. No acute abdominal or pelvic process. 4. The preliminary [facility] report was reviewed. RADIATION DOSE DELIVERED: 562.78mGy.cm Total DLP DATA REPOSITORY: All CT scans at this facility are submitted to the National Radiology Data Registry (NRDR) Dose Index Registry (DIR) with the [employer] ([employer]). RADIATION OPTIMIZATION: All CT scans at this facility use at least one of these dose optimization te chniques: automated exposure control; mA and/or kV adjustment per patient size (includes targeted exa ms where dose is matched to clinical indication); or iterative reconstruction.
--- NOTE | 2024-12-26 19:18 | W.ED.GENAD ---
Discharge Plan Disposition Patient Disposition: Home Discharge Details Clinical Impression: Bipolar I disorder, Chronic diarrhea, Diverticulosis, Abdominal pain Primary Care Provider: Cathie Strange ED Provider: Dominga Rubalcava Home Meds and New Rx's Prescriptions: No Action lamotrigine 200 mg tablet 200 mg PO QHS lamotrigine 100 mg tablet 100 mg PO QAM aspirin [Children's Aspirin] 81 mg tablet,chewable 81 mg PO DAILY Qty: 90 3RF atorvastatin [Lipitor] 10 mg tablet 10 mg PO DAILY Qty: 90 3RF ondansetron HCl 4 mg tablet 4 mg PO Q8H PRN (Reason: nausea and vomiting) Qty: 20 0RF trazodone 100 mg tablet 250 mg PO QHS Rexulti 3 mg tablet 3 mg PO DAILY diclofenac sodium [Voltaren Arthritis Pain] 1 % gel 2 g topical QID PRN (Reason: joint pain) Qty: 100 1RF Rx Instructions: apply to single elbow, wrist or hand; for hand includes palm/fingers/back of hand cyclobenzaprine 5 mg tablet 5 mg PO TID PRN (Reason: muscle spasm) Qty: 30 0RF amlodipine 5 mg tablet 5 mg PO DAILY Qty: 90 3RF esomeprazole magnesium [Nexium] 40 mg capsule,delayed release(DR/EC) 40 mg PO DAILY Qty: 90 3RF sertraline 100 mg tablet 100 mg PO DAILY Discharge Instructions Instructions: Diverticulosis (DC), Abdominal Pain, Adult ED, Diarrhea, Adult ED Additional Instructions: Symptoms may worsen and the testing in the emergency department does not rule out the early stages of a possible surgical condition. Return to ED for worsening pain, migration of pain to right lower abdomen, high fevers, or intractable vomiting. Referrals: Cathie Strange, MANAGER OF PATIENT [Primary Care Provider] - 3 days Discharge Data Discharge Physician: Dominga Rubalcava [facility] General Date/Time Provider Initiated Documentation: 12/26/24 19:04. HPI Narrative: 69-year-old female with history of diverticulitis presents for evaluation of abdominal pain. Patient states that she has been having some intermittent abdominal pain over the last several days. It has intensified today. The pain is worse with eating. She has had some diarrhea. Denies any bright red blood per rectum. No increased urinary frequency, dysuria, gross hematuria. She states the pain is throughout her entire abdomen. It usually last for several hours. Today she felt like she was going to pass out secondary to the pain. She did not have any syncope. She denies any chest pain or shortness of breath. No fevers or chills. No cough or cold. No recent antibiotics. No history of C. difficile. She has had a prior cholecystectomy as well as hysterectomy with oophorectomy. She states that her diverticulitis has healed in the past with antibiotics. No history of perforation or abscess. She has had a headache for the last day. She does typically have migraines. She states that this headache is just a normal headache and not like her migraines. She has been taking all of her home medications as prescribed. Denies any numbness or tingling to his extremities. No weakness in her extremities. She states that her vision felt funny when she felt like she was going to pass out however she does not have any visual changes at this time. Related Data Home Medications ?Medication ?Instructions ?Recorded ?Confirmed sertraline 100 mg tablet 100 mg PO DAILY 09/30/23 12/26/24 lamotrigine 100 mg tablet 100 mg PO QAM 10/21/23 12/26/24 lamotrigine 200 mg tablet 200 mg PO QHS 10/21/23 12/26/24 ondansetron HCl 4 mg tablet 4 mg PO Q8H PRN nausea and 05/24/24 12/26/24 vomiting #20 tabs trazodone 100 mg tablet 250 mg PO QHS 09/07/24 12/26/24 brexpiprazole 3 mg tablet (Rexulti) 3 mg PO DAILY 09/13/24 12/26/24 aspirin 81 mg chewable tablet 81 mg PO DAILY #90 tabs 09/25/24 12/26/24 (Children's Aspirin) atorvastatin 10 mg tablet (Lipitor) 10 mg PO DAILY #90 tabs 09/25/24 12/26/24 diclofenac sodium 1 % topical gel 2 g topical QID PRN joint pain 09/25/24 12/26/24 (Voltaren Arthritis Pain) #100 grams cyclobenzaprine 5 mg tablet 5 mg PO TID PRN muscle spasm #30 10/03/24 12/26/24 tabs amlodipine 5 mg tablet 5 mg PO DAILY #90 tabs 11/06/24 12/26/24 esomeprazole magnesium 40 mg 40 mg PO DAILY #90 caps 12/20/24 12/26/24 capsule,delayed release (Nexium) Previous Rx's ?Medication ?Instructions ?Recorded ondansetron HCl 4 mg tablet 4 mg PO Q8H PRN nausea and 05/24/24 vomiting #20 tabs aspirin 81 mg chewable tablet 81 mg PO DAILY #90 tabs 09/25/24 (Children's Aspirin) atorvastatin 10 mg tablet (Lipitor) 10 mg PO DAILY #90 tabs 09/25/24 diclofenac sodium 1 % topical gel 2 g topical QID PRN joint pain 09/25/24 (Voltaren Arthritis Pain) #100 grams cyclobenzaprine 5 mg tablet 5 mg PO TID PRN muscle spasm #30 10/03/24 tabs amlodipine 5 mg tablet 5 mg PO DAILY #90 tabs 11/06/24 esomeprazole magnesium 40 mg 40 mg PO DAILY #90 caps 12/20/24 capsule,delayed release (Nexium) Allergies Allergy/AdvReac Type Severity Reaction Status Date / Time latex AdvReac Severe Skin Rash Verified 12/26/24 19:06 amoxicillin (From Augmentin) AdvReac Agitation Verified 10/01/24 11:30 azithromycin (From Zithromax) AdvReac headache, Verified 12/26/24 19:06 hearing loss,double vision, DAVILA ciprofloxacin (From Cipro) AdvReac Dizziness/L Verified 12/26/24 19:06 ightheade clavulanic acid (From AdvReac Agitation Verified 12/26/24 19:06 Augmentin) codeine AdvReac GI upset Verified 12/26/24 19:06 doxycycline AdvReac Other (See Verified 12/26/24 19:06 Comment) metronidazole (From Flagyl) AdvReac Agitation Verified 12/26/24 19:06 Penicillins AdvReac Other (See Verified 12/26/24 19:06 Comment) Sulfa (Sulfonamide AdvReac anxious Verified 12/26/24 19:06 Antibiotics) General Stated Complaint: GenMedical MARIAM: 3 Review of Systems Narrative: Remainder of review of systems otherwise negative except for as noted in the HPI x 10. Exam Narrative Exam Narrative: General: non-toxic, no respiratory distress, comfortable HEENT: normocephalic, atraumatic, lids and lashes normal, PERRL, EOMI, anicteric sclera, no conjunctival injection, moist oral mucosa Card: regular rate and rhythm, S1S2, no murmurs, rubs, or gallops Lungs: good air entry, clear to auscultation bilaterally. no wheezes, rales, rhonchi, or retractions Abd: soft, mild diffuse tenderness, non-distended, normal bowel sounds, no rebound or guarding, no peritoneal signs, no CVAT Musculoskeletal: full range of motion of arms and legs, no tenderness to palpation. no clubbing, cyanosis, or edema Neurologic: GSC 15, CN 2-12 intact bilaterally, speech normal, strength normal, sensation intact distally in all four extremities, gait normal, 2+ biceps tendon reflexes, normal finger to nose, normal rapid alternating movements, no pronator drift Psych: alert and oriented Skin: no petechiae, no lesions, warm and dry Course Vital Signs Vital signs: Vital Signs Pulse 75 12/26/24 18:57 Respiratory Rate 20 12/26/24 18:57 Blood Pressure 162/90 H 12/26/24 18:57 Pulse Oximetry 93 12/26/24 18:57 Pulse 75 12/26/24 19:03 Respiratory Rate 20 12/26/24 19:03 Blood Pressure 162/90 H 12/26/24 19:03 Pulse Oximetry 93 12/26/24 19:03 Oxygen Delivery Method Room Air 12/26/24 19:03 Oxygen Flow Rate 0 12/26/24 19:03 Medical Decision Making 69-year-old female with history of diverticulitis presents for evaluation of abdominal pain. At time of evaluation she has mild diffuse tenderness to palpation. She is neurologically intact and NIH stroke score equals 0. EKG does not show any acute ischemic changes. Lab work is unremarkable. No elevated white count. No electrolyte abnormality. Troponin flat x 2. CT abdomen pelvis shows diverticulosis without any diverticulitis. Patient did have 1 episode of desaturation and chest x-ray was performed which is negative for pneumonia. Rapid influenza, COVID, RSV are negative. Patient is reassured with these findings. She did receive Tylenol and Toradol for pain. She is comfortable with discharge home at this time. Symptoms improved after ED medication. Abdominal exam is non-acute and patient is in no distress. Patient to push fluids and advance diet as tolerated. Patient is to follow up with PMD. Patient understands that symptoms may worsen and the testing in the emergency department does not rule out the early stages of a possible surgical condition. Will return to ED for worsening pain, migration of pain to right lower abdomen, high fevers, or intractable vomiting. ECG Data Interpretation: 12 lead EKG performed at 1902 Indication: Abdominal pain Rhythm: Normal sinus rhythm Rate: 66 [place]:Normal Intervals: Normal QRS: Normal ST segments: Normal T Waves: Normal INTERPRETATION: Normal sinus rhythm Comparison to old EK09/27/2024 decreased heart rate The 12 lead EKG was interpreted by myself Quality:[facility] Health Related Social Needs: Health related social needs housing instability, housed, with risk of homelessness (Z59.811) [facility] All Active Problems (Updated 12/26/24 @ 22:46 by Dominga Rubalcava MD) Abdominal pain (Acute) Diverticulosis (Acute) Bipolar I disorder (Chronic) [facility] Alcohol use disorder (Chronic) Diverticular stricture (Chronic) Followed by [facility] Colon stricture (Chronic) Followed by [facility] Cramer's esophagus (Chronic) On 2009 EGD, not on 2012 EGD, on 2023 EGD Gastroesophageal reflux disease with esophagitis (Chronic) Diverticulosis of colon (Chronic) Chronic diarrhea (Chronic) Hypertension (Chronic) Hyperlipidemia (Chronic) Hiatal hernia (Chronic) Migraine (Chronic) 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) Glaucoma (Chronic) Allergic rhinitis (Chronic) Medical History TIA (transient ischemic attack) (~05/2024) TMJ (temporomandibular joint disorder) Diverticulitis of sigmoid colon Multiple episodes, seeing [facility] Diabetes mellitus Surgical History S/P cholecystectomy S/P BSO (bilateral salpingo-oophorectomy) (07/03/15) Status post foot surgery History of total vaginal hysterectomy (TVH) (07/03/15) With cystoscopy and rectocele repair History of esophagogastroduodenoscopy History of bilateral ligation of fallopian tubes Family History Mother Stroke Lung cancer Hypertension Father Heart disease Hyperlipidemia Hypertension Brother Heart disease DOUBLE BYPASS AGE 48 (NON SMOKER) Hyperlipidemia Son Depression Daughter Depression Maternal Grandfather Lung cancer Maternal Grandmother Heart disease Myocardial infarction Paternal Grandfather No problems noted. Paternal Grandmother Diabetes Social History Smoking/Tobacco Use Status: Former Tobacco Use Quit Date: 09/05/77 Smoking risk assessment performed?: Yes Alcohol Intake: never Drug use: Never Substance use type: does not use Housing: house Do you feel safe at home: Yes Do you feel safe in your relationship?: Yes Additional Social history: lives alone
[2024-12-26 19:26] LABS: HCT 42.9 % (36.0-46.0); HGB 14.2 g/dL (11.2-15.7); MCH 31.9 pg (27.0-33.0); MCHC 33.1 % (32.0-36.0); MCV 96 fL (80-95); MPV 11.6 fL (8.0-11.0); Platelet Count 123 10^3/uL (130-400); RBC 4.45 10^6/uL (3.93-5.22); RDW 13.2 % (11.7-14.6); RDW-SD 45.3 fL; WBC 6.45 10^3/uL (4.4-10.8)
[2024-12-26 19:35] LABS: Bilirubin Negative (Negative); Blood Negative (Negative); Clarity Clear (Clear); Glucose Negative (Negative); Ketones Negative (Negative); Leukocyte Esterase Trace (Negative); Nitrite Negative (Negative); Specific Gravity 1.015 (1.005-1.025); Urobilinogen 0.2 mg/dL (Up to 0.2)
[2024-12-26 19:37] LABS: Magnesium 1.8 mg/dL (1.8-2.4)
[2024-12-26 19:44] LABS: ALT 22 U/L (14-59); AST 18 U/L (15-37); Albumin 4.2 g/dL (3.4-5.0); Alkaline Phosphatase 69 U/L (46-116); BUN 11 mg/dL (7-18); Bilirubin, Total 0.3 mg/dL (0.2-1.0); CREATININE 1.2 mg/dL (0.55-1.02); Calcium 9.4 mg/dL (8.5-10.1); Chloride 102 mmol/L (98-107); Estimated GFR 49.61 (mL/min/1.73m2); Glucose 82 mg/dL (74-106); Lipase 50 U/L (<78); Potassium 3.6 mmol/L (3.5-5.1); Sodium 142 mmol/L (136-145); Total Protein 7.8 g/dL (6.4-8.2); Troponin I 7 ng/L (<or=51)
[2024-12-26 19:45] LABS: ETHANOL BLOOD < 3.0 mg/dL (<10)
[2024-12-26 19:47] LABS: Absolute Eosinophil Count 0.06 10^3/uL (0.0-0.7); Absolute Lymphocyte Count 1.55 10^3/uL (1.2-3.4); Absolute Monocyte Count 1.42 10^3/uL (0.1-0.8); Absolute Neutrophil Count 3.23 10^3/uL (1.2-6.7); Bands % 1 %; Diff Comment Manual Differential; Myelocytes % 3; RBC Morphology Normal
[2024-12-26 19:53] LABS: Bacteria Rare HPF (Negative); C & S Indicated? No; Crystals Negative HPF (Negative); Epithelial Cells Rare HPF (Negative); Mucus Negative (Negative); RBC Negative HPF (0-2); WBC 0-2 HPF (0-5)
[2024-12-26] MEDS: Lactated Ringers 1,000 ML 1000 ML IV (20:00)
[2024-12-26] MEDS: Ketorolac 15 MG/ML VIAL IVP (20:00)
[2024-12-26] MEDS: Ondansetron 4 MG/2 ML VIAL IVP (20:00)
[2024-12-26] MEDS: Omnipaque 350 MG/ML 100 ML BTL 75 ML IJ (20:07)
[2024-12-26] MEDS: Normal Saline - Diluent 50 ML VIAL IJ (20:08)
[2024-12-26] MEDS: ACETAMINOPHEN 1,000 MG/100 ML BAG 400 MG IVPB (20:44)
--- NOTE | 2024-12-26 20:58 | DI.VRAD_ITS ---
PROCEDURE INFORMATION: Exam: CT Abdomen And Pelvis With Contrast Exam date and time: 12/26/2024 8:07 PM Age: 69 years old Clinical indication: Other: Abd pain with eating, diarrhea, HX diverticulosis TECHNIQUE: Imaging protocol: Computed tomography of the abdomen and pelvis with contrast. Contrast material: OMNIPAQUE 350; Contrast volume: 75 ml; Contrast route: INTRAVENOUS (IV); COMPARISON: CT ABDOMEN PELVIS W 09/09/2024 5:24 AM FINDINGS: Liver: Normal. No mass. Gallbladder and biliary ducts: Status post cholecystectomy. Pancreas: Normal. No ductal dilation. Spleen: Normal. No splenomegaly. Adrenal glands: Normal. No mass. Kidneys and ureters: Bosniak type 1 left renal cyst which measures 1.9 cm. No further imaging follow-up is necessary. Stomach and bowel: Sigmoid diverticulosis. No CT evidence for diverticulitis. Appendix: No evidence of appendicitis. Intraperitoneal space: Unremarkable. No free air. No significant fluid collection. Vasculature: Unremarkable. No abdominal aortic aneurysm. Lymph nodes: Unremarkable. No enlarged lymph nodes. Urinary bladder: Unremarkable as visualized. Reproductive: Unremarkable as visualized. Bones/joints: Mild anterolisthesis of L4 in relation to L5. Soft tissues: Unremarkable. IMPRESSION: 1. Sigmoid diverticulosis. No CT evidence for diverticulitis. 2. Otherwise unremarkable CT scan of abdomen and pelvis. Dictated and Authenticated by: Obed Jensen MD. Orderin Khadar Orr MD
--- NOTE | 2024-12-26 21:15 | DI.RAD_ITS ---
Exam(s) XR PORTABLE CHEST AP EXAM: XR PORTABLE CHEST AP CLINICAL HISTORY: hypoxia TECHNIQUE: 2D digital imaging was performed of the chest. One image was obtained. An AP view was ob tained. COMPARISON: CR XR PORTABLE CHEST AP from 05/30/[address] ABDOMEN PELVIS W from 12/26/2024 FINDINGS: MEDIASTINUM: Normal. HEART: Normal. PULMONARY VASCULATURE: Normal. LUNGS: There is linear atelectasis in the lung bases medially. No focal consolidating infiltrates ar e seen. PLEURAL SPACE: No pleural effusion or pneumothorax. BONE:Within normal limits for the patient's age. OTHER FINDINGS:Normal. IMPRESSION: 1. No focal consolidating infiltrates. 2. The preliminary [facility] report was reviewed. DATA REPOSITORY: RADIATION DOSE DELIVERED:
[2024-12-26 22:07] LABS: Troponin I 8 ng/L (<or=51)
--- NOTE | 2024-12-26 22:08 | DI.VRAD_ITS ---
PROCEDURE INFORMATION: Exam: XR Chest Exam date and time: 12/26/2024 9:59 PM Age: 69 years old Clinical indication: Other: Hypoxia TECHNIQUE: Imaging protocol: Radiologic exam of the chest. Views: 1 view. COMPARISON: CR XR CHEST 2V PA LATERAL 06/03/2024 3:01 PM FINDINGS: Lungs: Bilateral lower lobe subsegmental atelectatic changes. Pleural spaces: Unremarkable. No pleural effusion. No pneumothorax. Heart/Mediastinum: Unremarkable. No cardiomegaly. Bones/joints: Unremarkable. IMPRESSION: Bilateral lower lobe subsegmental atelectatic changes. Dictated and Authenticated by: Obed Jensen MD. Orderin Khadar Orr MD
[2024-12-26 22:30] LABS: COVID-19 PCR Negative (Negative); Influenza A PCR Negative (Negative); Influenza B PCR Negative (Negative); RSV PCR Negative (Negative)
[2024-12-26 22:32] LABS: Source Nasopharynx
[2025-01-01 13:21] LABS: Lamotrigine 4.4 mcg/mL (3.0-15.0)
== END 2024-12-26 22:59 | disposition home or self-care (01) ==
PROVIDERS: Emergency Provider Emergency Medicine Emergency Medical Services; PCP Nurse Practitioner Family
DX: K57.30 Diverticulosis of large intestine without perforation or abscess without bleeding (principal); R10.13 Epigastric pain; R19.7 Diarrhea, unspecified; F31.9 Bipolar disorder, unspecified; E11.9 Type 2 diabetes mellitus without complications; I10 Essential (primary) hypertension; E78.5 Hyperlipidemia, unspecified; Z79.82 Long term (current) use of aspirin; Z90.49 Acquired absence of other specified parts of digestive tract; Z90.710 Acquired absence of both cervix and uterus; Z87.891 Personal history of nicotine dependence
CPT/HCPCS: 80053; 80175; 83690; 87637; 93005; 96361; 96365; 96375; 99285; 71045; 74177; 80320; 81003; 81015; 83735; 84484; 85025; 93010; J0131; J1885; J2405; J3490

== ENCOUNTER 2025-01-30 17:29 | Emergency (ER) | payer MEDICARE, MEDICAID, SELFPAY ==
[2025-01-30] VITALS (36 sets, daily range): BP systolic 131–197; BP diastolic 73–118; PULSE 72–99; RESP 17–24; TEMP 36.6; O2SAT 87–95
--- NOTE | 2025-01-30 17:45 | RT.EKG_ITS ---
APPROVED REPORT Exam: Resting ECG Reason for Exam: shortness of breath on exertion Patient Location: E HR:75 bpm ECG Measurements Heart Rate 75 AXIS MI 156 P 60 QRSd 96 QRS 36 QT 386 T 54 QTc 432 Conclusion Sinus rhythm, rate 75 No interval abnormalities PVC No STEMI No significant changes from priors
--- NOTE | 2025-01-30 17:51 | ED.GENADUL_ITS ---
Discharge Plan Disposition Patient Disposition: Home Condition: Stable Discharge Details Clinical Impression: Diverticulitis of intestine with abscess Primary Care Provider: Cathie Strange ED Provider: George Seay Home Meds and New Rx's Prescriptions: New amoxicillin-pot clavulanate 875-125 mg tablet 1 tab PO BID 10 Days Qty: 20 0RF Continued lamotrigine 200 mg tablet 200 mg PO QHS lamotrigine 100 mg tablet 100 mg PO QAM aspirin [Children's Aspirin] 81 mg tablet,chewable 81 mg PO DAILY Qty: 90 3RF atorvastatin [Lipitor] 10 mg tablet 10 mg PO DAILY Qty: 90 3RF ondansetron HCl 4 mg tablet 4 mg PO Q8H PRN (Reason: nausea and vomiting) Qty: 20 0RF trazodone 100 mg tablet 250 mg PO QHS Rexulti 3 mg tablet 3 mg PO DAILY diclofenac sodium [Voltaren Arthritis Pain] 1 % gel 2 g topical QID PRN (Reason: joint pain) Qty: 100 1RF Rx Instructions: apply to single elbow, wrist or hand; for hand includes palm/fingers/back of hand cyclobenzaprine 5 mg tablet 5 mg PO TID PRN (Reason: muscle spasm) Qty: 30 0RF amlodipine 5 mg tablet 5 mg PO DAILY Qty: 90 3RF esomeprazole magnesium [Nexium] 40 mg capsule,delayed release(DR/EC) 40 mg PO DAILY Qty: 90 3RF sertraline 100 mg tablet 100 mg PO DAILY Discharge Instructions Instructions: Diverticulitis, Amoxicillin and Clavulanate Additional Instructions: You were seen in the emergency department for your intermittent abdominal pain ongoing for months with back pain and nausea, your CT scan shows no problems with the liver and your laboratory workup is benign showing no severe infection or elevation of liver enzymes. There does appear to be an acute diverticulitis of your colon and I am starting you on the antibiotic Augmentin, you have had adverse reactions to this antibiotic in the past of hurting your stomach, this is likely due to taking it on an empty stomach-take it with food. Use [id number] famotidine/Pepcid to help with stomach pain by taking this 20 to 30 minutes after your antibiotic. This is a common side effect from this antibiotic and does not warrant a substitution. Please monitor your condition closely, please return for severe increase in abdominal pain especially fever, chest pain, complete constipation and inability to pass gas, please follow-up with general surgery in the next few days as they could see you in the office and perform a colonoscopy at some point in the near future. Referrals: [facility] [Provider Group] Cathie Strange NP [Primary Care Provider] - Discharge Data Discharge Date/Time-TO BE ENTERED AT DEPARTURE: 01/30/25 21:31 HPI General Date/Time Provider Initiated Documentation: 01/30/25 17:41 . HPI Narrative: 70 year-old female presents to ED today by EMS with a chief complaint of mild intermittent abdominal pain and distention, weakness for months, intermittent nausea- thinks she has liver problems. Quality described as generalized malaise, no radiation to cough, chest pain, fever, shortness of breath, skin changes, hemoptysis, black/bloody stools, vomiting. Severity is described as unable to quantify. Palliating factors include nothing specific. Provoking factors include nothing specific. Events leading up to the incident/Associated Symptoms: Patient denies ETOH intake. Patient not anticoagulated. Related Data Home Medications ?Medication ?Instructions ?Recorded ?Confirmed sertraline 100 mg tablet 100 mg PO DAILY 09/30/23 01/31/25 lamotrigine 100 mg tablet 100 mg PO QAM 10/21/23 01/31/25 lamotrigine 200 mg tablet 200 mg PO QHS 10/21/23 01/31/25 ondansetron HCl 4 mg tablet 4 mg PO Q8H PRN nausea and 05/24/24 01/31/25 vomiting #20 tabs trazodone 100 mg tablet 250 mg PO QHS 09/07/24 01/31/25 brexpiprazole 3 mg tablet (Rexulti) 3 mg PO DAILY 09/13/24 01/31/25 aspirin 81 mg chewable tablet 81 mg PO DAILY #90 tabs 09/25/24 01/31/25 (Children's Aspirin) atorvastatin 10 mg tablet (Lipitor) 10 mg PO DAILY #90 tabs 09/25/24 01/31/25 diclofenac sodium 1 % topical gel 2 g topical QID PRN joint pain 09/25/24 01/31/25 (Voltaren Arthritis Pain) #100 grams cyclobenzaprine 5 mg tablet 5 mg PO TID PRN muscle spasm #30 10/03/24 01/31/25 tabs amlodipine 5 mg tablet 5 mg PO DAILY #90 tabs 11/06/24 01/31/25 esomeprazole magnesium 40 mg 40 mg PO DAILY #90 caps 12/20/24 01/31/25 capsule,delayed release (Nexium) amoxicillin 875 mg-potassium 1 tab PO BID 10 days #20 tabs 01/30/25 01/31/25 clavulanate 125 mg tablet Previous Rx's ?Medication ?Instructions ?Recorded ondansetron HCl 4 mg tablet 4 mg PO Q8H PRN nausea and 05/24/24 vomiting #20 tabs aspirin 81 mg chewable tablet 81 mg PO DAILY #90 tabs 09/25/24 (Children's Aspirin) atorvastatin 10 mg tablet (Lipitor) 10 mg PO DAILY #90 tabs 09/25/24 diclofenac sodium 1 % topical gel 2 g topical QID PRN joint pain 09/25/24 (Voltaren Arthritis Pain) #100 grams cyclobenzaprine 5 mg tablet 5 mg PO TID PRN muscle spasm #30 10/03/24 tabs amlodipine 5 mg tablet 5 mg PO DAILY #90 tabs 11/06/24 esomeprazole magnesium 40 mg 40 mg PO DAILY #90 caps 12/20/24 capsule,delayed release (Nexium) amoxicillin 875 mg-potassium 1 tab PO BID 10 days #20 tabs 01/30/25 clavulanate 125 mg tablet Allergies Allergy/AdvReac Type Severity Reaction Status Date / Time latex AdvReac Severe Skin Rash Verified 01/30/25 17:36 amoxicillin (From Augmentin) AdvReac Agitation Verified 01/30/25 17:36 azithromycin (From Zithromax) AdvReac headache, Verified 01/30/25 17:36 hearing loss,double vision, DAVILA ciprofloxacin (From Cipro) AdvReac Dizziness/L Verified 01/30/25 17:36 ightheade clavulanic acid (From AdvReac Agitation Verified 01/30/25 17:36 Augmentin) codeine AdvReac GI upset Verified 01/30/25 17:36 doxycycline AdvReac Other (See Verified 01/30/25 17:36 Comment) metronidazole (From Flagyl) AdvReac Agitation Verified 01/30/25 17:36 Penicillins AdvReac Other (See Verified 01/30/25 17:36 Comment) Sulfa (Sulfonamide AdvReac anxious Verified 01/30/25 17:36 Antibiotics) General Stated Complaint: Abd Prob MARIAM: 3 Review of Systems All systems reviewed & are unremarkable except as noted in HPI and below Exam Narrative Exam Narrative: GENERAL APPEARANCE: Well-nourished, non-toxic, awake and alert, atraumatic, no acute distress. SKIN: Warm, pink, dry, intact, without rashes/lesions/ulcerations. HEAD: Normocephalic, atraumatic, normal hair distribution for gender/age. EYES: Normal conjunctiva, no exudates on lids/lashes. ENT: Nares patent, no circumoral cyanosis, no facial swelling NECK: Supple, trachea midline, painless cervical ROM. LUNGS/CHEST: Lungs CTA bilaterally- no rhonchi/rales/wheezes diffusely, non- labored respirations, normal A/P diameter, symmetrical expansion, no chest wall deformity HEART (CV/PV): Regular rate and rhythm without murmur, no peripheral edema, no JVD. ABDOMEN: Soft, non-distended, no guarding, distended abdomen without overt focal tenderness, endorses some mild tenderness left lower quadrant, right lower quadrant, right upper quadrant, epigastric region without rebound tenderness, question ascites, no CVA tenderness to percussion bilaterally. MSK: Normal ROM, no swelling/deformity to bilateral UEs or LEs, moving all extremities without weakness, no cyanosis, spine midline without tenderness, normal curvature. NEURO: Mental Status AAOx4 - alert to person, place, time, events No facial droop, no forehead involvement. Motor: No focal weakness - strength 5/5 in bilateral UEs and LEs, proximal and distal, symmetric. Sensory: sensation intact to light touch globally. Gait normal: patient ambulated without ataxia into ED room. PSYCH: dysthymic, cooperative, flat affect, appropriate speech Course Vital Signs Vital signs: Vital Signs Temperature 36.6 C 01/30/25 17:30 Pulse 75 01/30/25 17:30 Respiratory Rate 18 01/30/25 17:30 Blood Pressure 197/83 H 01/30/25 17:30 Pulse Oximetry 94 01/30/25 17:30 Temperature 36.6 C 01/30/25 17:39 Temperature Source Oral 01/30/25 17:39 Pulse 75 05/28/25 17:39 Respiratory Rate 18 01/30/25 17:39 Blood Pressure 197/83 H 01/30/25 17:39 Blood Pressure Position Sitting 01/30/25 17:39 Pulse Oximetry 94 01/30/25 17:39 Oxygen Delivery Method Room Air 01/30/25 17:39 Oxygen Flow Rate 0 01/30/25 17:39 Pain Level 6 01/30/25 17:39 Medical Decision Making This dictation utilizes ludih-ns-aeav dictation software and may contain unedited grammatical errors. 70 year-old female presents to ED today by EMS with a chief complaint of mild intermittent abdominal pain and distention, weakness for months, intermittent nausea- thinks she has liver problems. Quality described as generalized malaise, no radiation to cough, chest pain, fever, shortness of breath, skin changes, hemoptysis, black/bloody stools, vomiting. Severity is described as unable to quantify. Palliating factors include nothing specific. Provoking factors include nothing specific. Events leading up to the incident/Associated Symptoms: Patient denies ETOH intake. States she has taken a lot of Tylenol at this points for pain. Patients' medical history: TIA, history of cholecystectomy, history of vaginal hysterectomy, alcohol use disorder, bipolar 1 disorder, diverticular stricture, Cramer's esophagus, diverticulosis, hypertension, hyperlipidemia, hiatal hernia, presence of appendix on left side of body. Family and social history: Denies EtOH intake, denies IVDU, lives independently. Pertinent exam findings / vital signs include distended abdomen without overt focal tenderness, endorses some mild tenderness left lower quadrant, right lower quadrant, right upper quadrant, epigastric region without rebound tenderness, question ascites, no CVA tenderness to percussion bilaterally, benign cardiopulmonary exam without rhonchi or rales or other adventitious lung sounds, nontoxic and afebrile, flat affect but neuro intact. Differential / pathologies of concern include ascites, cirrhosis, fatigue, unlikely SBP, unlikely pleural effusion, gastroenteritis. Diagnostic studies of: - CBC, CMP, PT/INR, lactate, lipase, BNP, serial troponin, TSH, Ammonia, APAP Level, UA, UDS, magnesium, CT ABD/pelvis with contrast. - CBC shows no leukocytosis, no anemia, mildly elevated absolute neutrophil count at 7.24, mildly elevated monocyte count at 1.3 - PT/INR within normal limits - Lactate negative - Urine completely benign - Acetaminophen level negative - UDS negative - CMP shows no acute actionable abnormality - Ammonia negative - Magnesium mildly low repleted with IV push magnesium - Lipase negative - TSH within normal limits - Troponins negative - BNP negative - CT ABD/pelvis shows acute diverticulitis, with 11mm intramural abscess, consulting surgery. Interventions of: -2gm IVP mag sulfate. -Consult General Surgery Dr. Orozco @ 2039. This type of abscess doesn't requ matt surgical drainage- will follow in office. ED Course/Assessment/Plan: 70-year-old female presents to the ED with a belief of liver problems Notes distended abdomen more than usual, feels she may have something wrong with her liver with intermittent abdominal pain and notes a history of diverticulosis. Her laboratory workup is unremarkable as far as biliary pathology, her electrolytes are all within normal limits there is no evidence of significant infection or sepsis, acetaminophen level is negative, lipase is negative, she was repleted with a small amount of magnesium, the CT scan showed acute diverticulitis with an 11 mm intramural abscess question by V rad read which does not require drainage and she can be discharged on Augmentin and follow-up with surgery in office, strict return criteria for any severe increase in abdominal pain especially with fever, inability to pass flatus or have a bowel movement or any other emergent concerns. Findings not consistent with surgical drainable abscess, biliary pathology, sepsis, small bowel obstruction or other acute emergent abdominal pathology. Disposition of Diverticulitis of intestine with abscess. Patient verbalized understanding of the plan and return to ED criteria and engaged in shared decision making. Medical Records Medical records reviewed: Yes I reviewed the patient's medical records. Imaging Data Radiologic Study: Attestation: I personally reviewed and interpreted this imaging study as follows: Imaging: CT Scan Radiologist's impression: Exam: CT Abdomen And Pelvis With Contrast Exam date and time: 01/30/2025 7:49 PM Age: 70 years old Clinical indication: Left lower quadrant (LLQ) abd pain / tenderness; Ascites TECHNIQUE: Imaging protocol: Computed tomography of the abdomen and pelvis with contrast. Radiation optimization: All CT scans at this facility use at least one of these dose optimization techniques: automated exposure control; mA and/or kV adjustment per patient size (includes targeted exams where dose is matched to clinical indication); or iterative reconstruction. Contrast material: [id number]; Contrast volume: 75 ml; Contrast route: INTRAVENOUS (IV); COMPARISON: CT ABDOMEN PELVIS W 12/26/2024 8:07 PM FINDINGS: Lungs: Bibasilar linear parenchymal scarring or subsegmental collapse / atelectasis. Diaphragm: Small hiatal hernia. Liver: Normal. No mass. Gallbladder and biliary ducts: Status post cholecystectomy. No biliary tract dilatation. Pancreas: Normal. No ductal dilation. Spleen: Normal. No splenomegaly. Adrenal glands: Normal. No mass. Kidneys and ureters: No hydronephrosis. No calcified renal or ureteral stones. 2.0 cm lateral left renal angiomyolipoma (-66 HU). Stomach and bowel: No generalized ileus or bowel obstruction. Mural thickening of the junction of the mid / distal colon with associated scattered diverticula and infiltration / stranding of the pericolonic fat consistent with acute diverticulitis. No perforation. Possible associated 11 mm intramural abscess. Appendix: Normal appendix. Intraperitoneal space: No free air. Trace free fluid in the pelvic region. Vasculature: The abdominal aorta is normal in caliber without aneurysm or dissection. Lymph nodes: No enlarged lymph nodes. Urinary bladder: Unremarkable as visualized. Reproductive: Unremarkable as visualized. Bones/joints: Mild spinal degenerative changes. Mild retrolisthesis of L5 with respect to L4. Lumbar spine levoscoliosis. Soft tissues: Unremarkable. IMPRESSION: Acute diverticulitis of the junction of the mid / distal colon. No perforation. Possible associated 11 mm intramural abscess. Dictated and Authenticated by: Luis Miguel De Jesus MD. Lab Data Lab results reviewed: Yes I reviewed the patient's lab results. Labs: Laboratory Tests Range/Units 01/30/25 01/30/25 01/30/25 17:35 18:04 18:14 WBC (4.4-10.8) 10^3/uL 10.80 RBC (3.93-5.22) 10^6/uL 4.11 Hgb (11.2-15.7) g/dL 13.0 Hct (36.0-46.0) % 38.6 MCV (80-95) fL 94 MCH (27.0-33.0) pg 31.6 MCHC (32.0-36.0) % 33.7 RDW (11.7-14.6) % 13.3 Plt Count (130-400) 10^3/uL 114 L MPV (8.0-11.0) fL 12.0 H Immature Gran % % Neutrophils % % 64.0 Band Neutrophils % % 3 Lymphocytes % % 17.0 Atypical Lymphs % % 1 Monocytes % % 12.0 Eosinophils % % 2.0 Basophils % % 0.0 Promyelocytes % 1 Nucleated RBC % (0.0-0.3) % 0.0 Absolute Neutrophils (1.2-6.7) 10^3/uL 7.24 H Absolute Lymphocytes (1.2-3.4) 10^3/uL 1.94 Absolute Monocytes (0.1-0.8) 10^3/uL 1.30 H Absolute Eosinophils (0.0-0.7) 10^3/uL 0.22 Absolute Basophils (0.0-0.2) 10^3/uL 0.00 RBC Morphology Normal PT (9.1-11.1) sec 10.1 INR (0.9-1.1) 1.0 VBG Lactate (<or=2.0) mmol/L 0.7 Sodium Cancelled Potassium Cancelled Chloride Cancelled Carbon Dioxide Cancelled Anion Gap Cancelled BUN Cancelled Creatinine Cancelled Est GFR (CKD-EPI 2020) Cancelled Glucose Cancelled Calcium Cancelled Magnesium Cancelled Total Bilirubin Cancelled Conjugated Bilirubin Cancelled GGT Cancelled AST Cancelled ALT Cancelled Alkaline Phosphatase Cancelled Ammonia Cancelled Troponin I Cancelled NT-Pro-B Natriuret Pep Cancelled Total Protein Cancelled Albumin Cancelled Lipase Cancelled TSH Cancelled Urine Color (Yellow) Yellow Urine Clarity (Clear) Clear Urine pH (5-8) 6.5 Ur Specific [place] (1.005-1.025) 1.010 Urine Protein (Neg-Trace) mg/dL Negative Urine Ketones (Negative) mg/dL Negative Urine Blood (Negative) Negative Urine Nitrite (Negative) Negative Urine Bilirubin (Negative) Negative Urine Urobilinogen (Up to 0.2) mg/dL 0.2 Ur Leukocyte Esterase (Negative) Negative Urine Glucose (Negative) mg/dL Negative Urine Opiates Screen (Negative) Negative Urine Methadone Screen (Negative) Negative Acetaminophen (10-30) ug/mL < 2 Ur Barbiturates Screen (Negative) Negative Ur Tricyclics Screen (Negative) Negative Ur Amphetamines Screen (Negative) Negative U Benzodiazepines Scrn (Negative) Negative Urine Cocaine Screen (Negative) Negative Ur THC Screen (Negative) Negative Range/Units 01/30/25 01/30/25 18:48 19:44 WBC (4.4-10.8) 10^3/uL RBC (3.93-5.22) 10^6/uL Hgb (11.2-15.7) g/dL Hct (36.0-46.0) % MCV (80-95) fL MCH (27.0-33.0) pg MCHC (32.0-36.0) % RDW (11.7-14.6) % Plt Count (130-400) 10^3/uL MPV (8.0-11.0) fL Immature Gran % % Neutrophils % % Band Neutrophils % % Lymphocytes % % Atypical Lymphs % % Monocytes % % Eosinophils % % Basophils % % Promyelocytes % Nucleated RBC % (0.0-0.3) % Absolute Neutrophils (1.2-6.7) 10^3/uL Absolute Lymphocytes (1.2-3.4) 10^3/uL Absolute Monocytes (0.1-0.8) 10^3/uL Absolute Eosinophils (0.0-0.7) 10^3/uL Absolute Basophils (0.0-0.2) 10^3/uL RBC Morphology PT (9.1-11.1) sec INR (0.9-1.1) VBG Lactate (<or=2.0) mmol/L Sodium 137 Potassium 4.0 Chloride 100 Carbon Dioxide 28.3 Anion Gap 8.7 BUN 7 Creatinine 0.9 Est GFR (CKD-EPI 2020) 69.64 Glucose 88 Calcium 9.7 Magnesium 1.6 L Total Bilirubin 0.5 Conjugated Bilirubin 0.1 GGT 49 AST 19 ALT 17 Alkaline Phosphatase 88 Ammonia < 10 L Troponin I 7 7 NT-Pro-B Natriuret Pep 162 Total Protein 7.9 Albumin 3.7 Lipase 27 TSH 1.74 Urine Color (Yellow) Urine Clarity (Clear) Urine pH (5-8) Ur Specific [place] (1.005-1.025) Urine Protein (Neg-Trace) mg/dL Urine Ketones (Negative) mg/dL Urine Blood (Negative) Urine Nitrite (Negative) Urine Bilirubin (Negative) Urine Urobilinogen (Up to 0.2) mg/dL Ur Leukocyte Esterase (Negative) Urine Glucose (Negative) mg/dL Urine Opiates Screen (Negative) Urine Methadone Screen (Negative) Acetaminophen (10-30) ug/mL Ur Barbiturates Screen (Negative) Ur Tricyclics Screen (Negative) Ur Amphetamines Screen (Negative) U Benzodiazepines Scrn (Negative) Urine Cocaine Screen (Negative) Ur THC Screen (Negative) Quality:SDOH Health Related Social Needs: Health related social needs housing instability, house d, with risk of homelessness (Z59.811) [facility] All Active Problems (Updated 01/30/25 @ 20:48 by ANKUSH Bailey) Diverticulitis of intestine with abscess (Acute) Bipolar I disorder (Chronic) [facility] Alcohol use disorder (Chronic) Diverticular stricture (Chronic) Followed by [facility] Colon stricture (Chronic) Followed by 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 Diabetes mellitus Surgical History S/P cholecystectomy S/P BSO (bilateral salpingo-oophorectomy) (07/03/15) Status post foot surgery History of total vaginal hysterectomy (TVH) (07/03/15) With cystoscopy and rectocele repair History of esophagogastroduodenoscopy History of bilateral ligation of fallopian tubes Family History Mother Stroke Lung cancer Hypertension Father Heart disease Hyperlipidemia Hypertension Brother Heart disease DOUBLE BYPASS AGE 48 (NON SMOKER) Hyperlipidemia Son Depression Daughter Depression Maternal Grandfather Lung cancer Maternal Grandmother Heart disease Myocardial infarction Paternal Grandfather No problems noted. Paternal Grandmother Diabetes Social History Smoking/Tobacco Use Status: Former Tobacco Use Quit Date: 09/05/77 Smoking risk assessment performed?: Yes Alcohol Intake: never Drug use: Never Substance use type: does not use Housing: house Do you feel safe at home: Yes Do you feel safe in your relationship?: Yes Additional Social history: lives alone / no car
[2025-01-30 17:56] LABS: Bilirubin Negative (Negative); Blood Negative (Negative); Clarity Clear (Clear); Glucose Negative (Negative); Ketones Negative (Negative); Leukocyte Esterase Negative (Negative); Nitrite Negative (Negative); Urobilinogen 0.2 mg/dL (Up to 0.2); pH 6.5 (5-8)
[2025-01-30 18:14] LABS: Lactate 0.7 mmol/L (<or=2.0)
[2025-01-30 18:18] LABS: HCT 38.6 % (36.0-46.0); MCH 31.6 pg (27.0-33.0); MCHC 33.7 % (32.0-36.0); MCV 94 fL (80-95); Platelet Count 114 10^3/uL (130-400); RBC 4.11 10^6/uL (3.93-5.22); RDW 13.3 % (11.7-14.6); RDW-SD 45.7 fL
[2025-01-30 18:36] LABS: Prothrombin Time 10.1 sec (9.1-11.1)
[2025-01-30 18:38] LABS: Absolute Eosinophil Count 0.22 10^3/uL (0.0-0.7); Absolute Lymphocyte Count 1.94 10^3/uL (1.2-3.4); Absolute Neutrophil Count 7.24 10^3/uL (1.2-6.7); Atypical Lymphocytes % 1 %; Bands % 3 %; Promyelocytes % 1
[2025-01-30 18:39] LABS: Diff Comment Manual Differential; RBC Morphology Normal
[2025-01-30 18:45] LABS: *AMPHETAMINES SCREEN URINE Negative (Negative); *BARBITURATES SCREEN URINE Negative (Negative); *BENZODIAZEPINES SCREEN URINE Negative (Negative); Cannabinoids THC Negative (Negative); Cocaine Screen,Urine Negative (Negative); METHADONE URINE SCREEN Negative (Negative); OPIATES URINE SCREEN Negative (Negative)
[2025-01-30 18:57] LABS: Tricyclic Antidepressants Negative (Negative)
[2025-01-30 19:06] LABS: Acetaminophen < 2 ug/mL (10-30)
[2025-01-30 19:17] LABS: Ammonia < 10 umol/L (11-32)
[2025-01-30 19:28] LABS: ALT 17 U/L (14-59); AST 19 U/L (15-37); Albumin 3.7 g/dL (3.4-5.0); Alkaline Phosphatase 88 U/L (46-116); Anion Gap 8.7 mmol/L (3-11); BUN 7 mg/dL (7-18); Bilirubin, Direct 0.1 mg/dL (0.0-0.2); Bilirubin, Total 0.5 mg/dL (0.2-1.0); CO2 28.3 mmol/L (21.0-32.0); CREATININE 0.9 mg/dL (0.55-1.02); Calcium 9.7 mg/dL (8.5-10.1); Chloride 100 mmol/L (98-107); Estimated GFR 69.64 (mL/min/1.73m2); GGT 49 U/L (5-55); Glucose 88 mg/dL (74-106); Lipase 27 U/L (<78); Magnesium 1.6 mg/dL (1.8-2.4); NT-proBNP 162 pg/mL (<300); Sodium 137 mmol/L (136-145); TSH (W/Ref FT4) 1.74 uIU/mL (0.36-3.74); Total Protein 7.9 g/dL (6.4-8.2); Troponin I 7 ng/L (<or=51)
[2025-01-30] MEDS: Omnipaque 350 MG/ML 100 ML BTL 75 ML IJ (19:48)
[2025-01-30] MEDS: Normal Saline - Diluent 50 ML VIAL IJ (19:50)
--- NOTE | 2025-01-30 19:57 | DI.CT_ITS ---
Exam(s) CT ABDOMEN PELVIS W EXAM: CT ABDOMEN PELVIS W CLINICAL HISTORY: ascites; LLQ tenderness. TECHNIQUE: Imaging Protocol: Axial computed tomography images with coronal and sagittal reformatted images were created and reviewed CONTRAST MATERIAL: Intravenous: Omnipaque-350 100cc Oral: None COMPARISON: CT CT ABDOMEN PELVIS W from 12/26/2024 FINDINGS: VISUALIZED LUNG BASES: No nodules nor pleural effusions evident. Scarring or atelectasis in the lung bases is again noted. ABDOMEN: There is no ascites. LIVER: Hepatic steatosis noted. No discrete focal hepatic lesions evident. No dilatation of intrahe patic ducts. GALLBLADDER/BILIARY: The gallbladder is again noted be surgically absent. CBD is not dilated. PANCREAS: No evidence of pancreatic mass nor dilatation of the pancreatic duct. SPLEEN: Spleen normal size. Small benign hypodensity again noted either cyst or small hemangioma. S plenic and portal veins are patent. ADRENALS: There are no significant adrenal masses. KIDNEYS:Right kidney unremarkable. Again noted is a midpole level fat containing lesion in the later al cortex of the left kidney measuring 2 cm and most probably a benign angiomyolipoma. No other foca l renal findings. No calculi. No hydronephrosis.. ABDOMINAL AORTA: Abdominal aorta is not enlarged. LYMPH NODES:There is no retroperitoneal nor paraaortic adenopathy. ABDOMINAL WALL: No evidence of significant anterior abdominal wall nor inguinal hernia. GI: No evidence of bowel obstruction. There is extensive diverticulosis of the sigmoid and scattered diverticuli are also noted throughout the colon. There is a mobile cecum which is midline. Appendi x is midline and appears unremarkable. No evidence of appendicitis. There are new abnormal findings in the lower sigmoid-rectosigmoid consistent with acute diverticuliti s. There is a mural abscess at this level developing which measures approximately 1.6 x 1.4 cm. Ano ther smaller abscess above this level measures approximately 11 x 8 mm. No obvious free air. There is also no gas within the adjacent urinary bladder lumen. PELVIS: LYMPH NODES: There is no intrapelvic nor inguinal adenopathy. REPRODUCTIVE: The uterus is again noted to be surgically absent. There are no ovarian masses. URINARY BLADDER: No calculi nor obvious masses evident OSSEOUS: No fractures and no significant osseous lesions. High mild degenerative anterolisthesis of L4 upon L5 related to facet arthropathy. No pars defects. Multilevel disc space narrowing noted in the lumbar spine. IMPRESSION: 1. The main acute finding is severe acute diverticulitis of the lower sigmoid and rectosigmoid which was not evident on the recent CT scan of 12/26/2024. There appear to be developing intramural absces s at this level with measurements as above. No obvious free air. These findings are superimposed up on diverticulosis which involves the entire colon. 2. Mobile cecum. Appendix is midline with no evidence of acute appendicitis. 3. Evidence of previous cholecystectomy and hysterectomy. 4. Fat containing benign angiomyolipoma again noted in the lateral cortex of the left kidney. Preliminary V rad report was reviewed RADIATION DOSE DELIVERED: 499.01mGy.cm Total DLP DATA REPOSITORY: All CT scans at this facility are submitted to the National Radiology Data Registry (NRDR) Dose Index Registry (DIR) with the [employer] (ACR). RADIATION OPTIMIZATION: All CT scans at this facility use at least one of these dose optimization te chniques: automated exposure control; mA and/or kV adjustment per patient size (includes targeted exa ms where dose is matched to clinical indication); or iterative reconstruction.
[2025-01-30] MEDS: MAGNESIUM SULFATE 2 GM/50 ML BAG IV_INF (20:09)
[2025-01-30 20:30] LABS: Troponin I 7 ng/L (<or=51)
--- NOTE | 2025-01-30 20:39 | DI.VRAD_ITS ---
PROCEDURE INFORMATION: Exam: CT Abdomen And Pelvis With Contrast Exam date and time: 01/30/2025 7:49 PM Age: 70 years old Clinical indication: Left lower quadrant (LLQ) abd pain / tenderness; Ascites TECHNIQUE: Imaging protocol: Computed tomography of the abdomen and pelvis with contrast. Radiation optimization: All CT scans at this facility use at least one of these dose optimization techniques: automated exposure control; mA and/or kV adjustment per patient size (includes targeted exams where dose is matched to clinical indication); or iterative reconstruction. Contrast material: [id number]; Contrast volume: 75 ml; Contrast route: INTRAVENOUS (IV); COMPARISON: CT ABDOMEN PELVIS W 12/26/2024 8:07 PM FINDINGS: Lungs: Bibasilar linear parenchymal scarring or subsegmental collapse / atelectasis. Diaphragm: Small hiatal hernia. Liver: Normal. No mass. Gallbladder and biliary ducts: Status post cholecystectomy. No biliary tract dilatation. Pancreas: Normal. No ductal dilation. Spleen: Normal. No splenomegaly. Adrenal glands: Normal. No mass. Kidneys and ureters: No hydronephrosis. No calcified renal or ureteral stones. 2.0 cm lateral left renal angiomyolipoma (-66 HU). Stomach and bowel: No generalized ileus or bowel obstruction. Mural thickening of the junction of the mid / distal colon with associated scattered diverticula and infiltration / stranding of the pericolonic fat consistent with acute diverticulitis. No perforation. Possible associated 11 mm intramural abscess. Appendix: Normal appendix. Intraperitoneal space: No free air. Trace free fluid in the pelvic region. Vasculature: The abdominal aorta is normal in caliber without aneurysm or dissection. Lymph nodes: No enlarged lymph nodes. Urinary bladder: Unremarkable as visualized. Reproductive: Unremarkable as visualized. Bones/joints: Mild spinal degenerative changes. Mild retrolisthesis of L5 with respect to L4. Lumbar spine levoscoliosis. Soft tissues: Unremarkable. IMPRESSION: Acute diverticulitis of the junction of the mid / distal colon. No perforation. Possible associated 11 mm intramural abscess. Dictated and Authenticated by: Luis Miguel De Jesus MD. Orderin Dawood Vazquez MD
[2025-01-30] MEDS: Famotidine 20 MG TAB PO (21:24)
[2025-01-30] MEDS: Amoxicillin 875/Clav. 125 TAB PO (21:24)
== END 2025-01-30 21:31 | disposition home or self-care (01) ==
PROVIDERS: Emergency Provider Physician Assistant; PCP Nurse Practitioner Family
DX: K57.80 Diverticulitis of intestine, part unspecified, with perforation and abscess without bleeding (principal); R10.31 Right lower quadrant pain; R10.32 Left lower quadrant pain; R10.11 Right upper quadrant pain
CPT/HCPCS: 99284; 99285; 36415; 80048; 80076; 80307; 83690; 93005; 74177; 80329; 81003; 82140; 82977; 83605; 83735; 83880; 84443; 84484; 85025; 85610; 93010; J3475; J3490

== ENCOUNTER 2025-02-05 11:58 | Emergency (ER) | payer MEDICARE, MEDICAID, SELFPAY ==
[2025-02-05 12:10] VITALS: BP 140/82; PULSE 90; RESP 16; O2SAT 96
--- NOTE | 2025-02-05 12:30 | DI.CT_ITS ---
Exam(s) CT ABDOMEN PELVIS W EXAM: CT ABDOMEN PELVIS W CLINICAL HISTORY: severe pain. TECHNIQUE: Imaging Protocol: Axial computed tomography images with coronal and sagittal reformatted images were created and reviewed CONTRAST MATERIAL: Intravenous: Omnipaque-350 100cc Oral: None COMPARISON: CT CT ABDOMEN PELVIS W from 01/30/2025 FINDINGS: VISUALIZED LUNG BASES: Increased markings in the lingular segment of the left lung and posterior basa l segment of the right lower lobe are again noted, unchanged. There are no pleural effusions.. ABDOMEN: There is no ascites. LIVER: There are no focal hepatic lesions evident. No evidence of liver abscess nor other focal intr ahepatic findings. No significant dilatation of intrahepatic ducts. GALLBLADDER/BILIARY: Gallbladder again noted be surgically absent. CBD is not dilated. PANCREAS: No evidence of pancreatic mass nor dilatation of the pancreatic duct. SPLEEN: Spleen is not enlarged. No obvious intrasplenic lesions. Splenic and portal veins are paten t. ADRENALS: There are no significant adrenal masses. KIDNEYS:No cysts evident. Benign angiomyolipoma in the lateral cortex of the left kidney again noted .. ABDOMINAL AORTA: Abdominal aorta is not enlarged. LYMPH NODES:There is no retroperitoneal nor paraaortic adenopathy. ABDOMINAL WALL: No evidence of significant anterior abdominal wall nor inguinal hernia. GI: No evidence of small-bowel obstruction. PELVIS: GI: No evidence of appendicitis.There is been some mild improvement in the appearance of the affected sigmoid. There is sensitive sigmoid diverticulosis and there is still some [place] sigmoid streaking f rom diverticulitis in the lower sigmoid although the amount of streaking appears less and there does not appear to be a truly discernible abscess at this time nor layering free fluid in the dependent as pect of the pelvis. LYMPH NODES: There is no intrapelvic nor inguinal adenopathy. REPRODUCTIVE: Uterus is surgically absent. No abnormal adnexal masses. URINARY BLADDER: There is no gas within the lumen of the bladder to suggest fistulous communication f rom the inflammatory process in the adjacent sigmoid. No other Findings in the bladder. OSSEOUS: No fractures and no significant osseous lesions. Mild degenerative anterolisthesis L4 upon L5. IMPRESSION: 1. Compared to the recent CT scan of 01/30/2025 there is again noted since of diverticulitis of the l ower sigmoid superimposed upon extensive diverticulosis. However, there appears to be some improveme nt in the amount of streaking and no obvious abscess formation. However, findings have not completel y resolved. No evidence of fistulous communication to the urinary bladder. No evidence of liver abscess. Findings called by myself to ER physician 02/05/2025 at 1:50 p.m. RADIATION DOSE DELIVERED: 441.79mGy.cm Total DLP DATA REPOSITORY: All CT scans at this facility are submitted to the National Radiology Data Registry (NRDR) Dose Index Registry (DIR) with the [employer] (ACR). RADIATION OPTIMIZATION: All CT scans at this facility use at least one of these dose optimization te chniques: automated exposure control; mA and/or kV adjustment per patient size (includes targeted exa ms where dose is matched to clinical indication); or iterative reconstruction.
[2025-02-05 12:55] LABS: HCT 41.3 % (36.0-46.0); HGB 13.6 g/dL (11.2-15.7); MCH 31.1 pg (27.0-33.0); MCHC 32.9 % (32.0-36.0); MCV 95 fL (80-95); MPV 10.4 fL (8.0-11.0); Platelet Count 135 10^3/uL (130-400); RBC 4.37 10^6/uL (3.93-5.22); RDW 13.6 % (11.7-14.6); RDW-SD 47.1 fL; WBC 7.17 10^3/uL (4.4-10.8)
[2025-02-05 12:57] LABS: ESR 21 mm/hr (0-30)
[2025-02-05 13:09] LABS: ALT 19 U/L (14-59); AST 17 U/L (15-37); Albumin 3.8 g/dL (3.4-5.0); Alkaline Phosphatase 77 U/L (46-116); Anion Gap 12.3 mmol/L (3-11); BUN 9 mg/dL (7-18); Bilirubin, Total 0.4 mg/dL (0.2-1.0); CO2 25.7 mmol/L (21.0-32.0); CREATININE 0.8 mg/dL (0.55-1.02); Calcium 9.1 mg/dL (8.5-10.1); Chloride 101 mmol/L (98-107); Estimated GFR 80.21 (mL/min/1.73m2); Glucose 104 mg/dL (74-106); Potassium 3.9 mmol/L (3.5-5.1); Sodium 139 mmol/L (136-145); Total Protein 7.7 g/dL (6.4-8.2)
[2025-02-05 13:10] LABS: Absolute Basophil Count 0.07 10^3/uL (0.0-0.2); Absolute Eosinophil Count 0.22 10^3/uL (0.0-0.7); Absolute Lymphocyte Count 1.94 10^3/uL (1.2-3.4); Absolute Monocyte Count 1.22 10^3/uL (0.1-0.8); Absolute Neutrophil Count 3.66 10^3/uL (1.2-6.7); Atypical Lymphocytes % 2 %; Bands % 1 %; Diff Comment Manual Differential; Metamyelocytes % 1; RBC Morphology Normal
[2025-02-05 13:13] LABS: C-Reactive Protein < 0.50 mg/dL (<or=0.5)
[2025-02-05] MEDS: Droperidol 5 MG/2 ML VIAL 2.5 MG IVP (13:25)
[2025-02-05] MEDS: Normal Saline - Diluent 50 ML VIAL IJ (13:32)
[2025-02-05] MEDS: Omnipaque 350 MG/ML 100 ML BTL IJ (13:34)
--- NOTE | 2025-02-05 15:16 | ED.GENADUL_ITS ---
Discharge Plan Disposition Patient Disposition: Home Discharge Details Clinical Impression: Diverticulitis Primary Care Provider: Cathie Strange ED Provider: Ab Haynes Home Meds and New Rx's Prescriptions: No Action lamotrigine 200 mg tablet 200 mg PO QHS lamotrigine 100 mg tablet 100 mg PO QAM aspirin [Children's Aspirin] 81 mg tablet,chewable 81 mg PO DAILY Qty: 90 3RF atorvastatin [Lipitor] 10 mg tablet 10 mg PO DAILY Qty: 90 3RF trazodone 100 mg tablet 250 mg PO QHS Rexulti 3 mg tablet 3 mg PO DAILY diclofenac sodium [Voltaren Arthritis Pain] 1 % gel 2 g topical QID PRN (Reason: joint pain) Qty: 100 1RF Rx Instructions: apply to single elbow, wrist or hand; for hand includes palm/fingers/back of hand cyclobenzaprine 5 mg tablet 5 mg PO TID PRN (Reason: muscle spasm) Qty: 30 0RF amlodipine 5 mg tablet 5 mg PO DAILY Qty: 90 3RF esomeprazole magnesium [Nexium] 40 mg capsule,delayed release(DR/EC) 40 mg PO DAILY Qty: 90 3RF ondansetron HCl 4 mg tablet See Rx Instructions .ROUTE .COMPLEX Qty: 20 0RF Dose Instruction: TAKE 1 TABLET BY MOUTH EVERY 8 HOURS NEEDED FOR NAUSEA OR VOMITING Rx Instructions: TAKE 1 TABLET BY MOUTH EVERY 8 HOURS NEEDED FOR NAUSEA OR VOMITING sertraline 100 mg tablet 100 mg PO DAILY amoxicillin-pot clavulanate 875-125 mg tablet 1 tab PO BID 10 Days Qty: 20 0RF rizatriptan 10 mg tablet,disintegrating 10 mg translingual ONCE Discharge Instructions Additional Instructions: Your lab work and CT imaging are improving since your last visit indicating that the antibiotics are working. You no longer have any evidence of abscess in your bowel. At this time you feel much better and there does not seem to be a reason to keep you in the hospital. Continue taking your antibiotics until you have completed the treatment course. Continue nausea medicine as needed. You will be sent home with a few doses of morphine for severe pain. Take the Tylenol as needed, but you can take one half tab of the morphine provided every 8 hours as needed for severe pain. HPI General Date/Time Provider Initiated Documentation: 02/05/25 12:21 . Limitations to Documentation: no limitations . Information obtained by: patient . HPI Narrative: 70-year-old female with past medical history of bipolar disorder, alcohol use disorder, recent diagnosis of diverticulitis presents to the emergency department with severe abdominal pain. She reports that she has been taking her antibiotic as prescribed and taking Tylenol for pain. She reports that the pain is generalized and severe. It is not relieved with the Tylenol. She stat es that she has not had any fever or vomiting. She has not missed any doses of the antibiotic. She was seen by urgent care today and referred to the emergency department for further evaluation. Related Data Home Medications ?Medication ?Instructions ?Recorded ?Confirmed sertraline 100 mg tablet 100 mg PO DAILY 09/30/23 02/05/25 lamotrigine 100 mg tablet 100 mg PO QAM 10/21/23 02/05/25 lamotrigine 200 mg tablet 200 mg PO QHS 10/21/23 02/05/25 trazodone 100 mg tablet 250 mg PO QHS 09/07/24 02/05/25 brexpiprazole 3 mg tablet (Rexulti) 3 mg PO DAILY 09/13/24 02/05/25 aspirin 81 mg chewable tablet 81 mg PO DAILY #90 tabs 09/25/24 02/05/25 (Children's Aspirin) atorvastatin 10 mg tablet (Lipitor) 10 mg PO DAILY #90 tabs 09/25/24 02/05/25 diclofenac sodium 1 % topical gel 2 g topical QID PRN joint pain 09/25/24 02/05/25 (Voltaren Arthritis Pain) #100 grams cyclobenzaprine 5 mg tablet 5 mg PO TID PRN muscle spasm #30 10/03/24 02/05/25 tabs amlodipine 5 mg tablet 5 mg PO DAILY #90 tabs 11/06/24 02/05/25 esomeprazole magnesium 40 mg 40 mg PO DAILY #90 caps 12/20/24 02/05/25 capsule,delayed release (Nexium) amoxicillin 875 mg-potassium 1 tab PO BID 10 days #20 tabs 01/30/25 02/05/25 clavulanate 125 mg tablet ondansetron HCl 4 mg tablet See Rx Instructions .Route 02/05/25 02/05/25 .COMPLEX #20 tabs rizatriptan 10 mg disintegrating 10 mg translingual ONCE 02/05/25 02/05/25 tablet Previous Rx's ?Medication ?Instructions ?Recorded aspirin 81 mg chewable tablet 81 mg PO DAILY #90 tabs 09/25/24 (Children's Aspirin) atorvastatin 10 mg tablet (Lipitor) 10 mg PO DAILY #90 tabs 09/25/24 diclofenac sodium 1 % topical gel 2 g topical QID PRN joint pain 09/25/24 (Voltaren Arthritis Pain) #100 grams cyclobenzaprine 5 mg tablet 5 mg PO TID PRN muscle spasm #30 10/03/24 tabs amlodipine 5 mg tablet 5 mg PO DAILY #90 tabs 11/06/24 esomeprazole magnesium 40 mg 40 mg PO DAILY #90 caps 12/20/24 capsule,delayed release (Nexium) amoxicillin 875 mg-potassium 1 tab PO BID 10 days #20 tabs 01/30/25 clavulanate 125 mg tablet ondansetron HCl 4 mg tablet See Rx Instructions .Route 02/05/25 .COMPLEX #20 tabs Allergies Allergy/AdvReac Type Severity Reaction Status Date / Time latex AdvReac Severe Skin Rash Verified 02/05/25 12:14 amoxicillin (From Augmentin) AdvReac Agitation Verified 02/05/25 12:14 azithromycin (From Zithromax) AdvReac headache, Verified 02/05/25 12:14 hearing loss,double vision, DAVILA ciprofloxacin (From Cipro) AdvReac Dizziness/L Verified 02/05/25 12:14 ightheade clavulanic acid (From AdvReac Agitation Verified 02/05/25 12:14 Augmentin) codeine AdvReac GI upset Verified 02/05/25 12:14 doxycycline AdvReac Other (See Verified 02/05/25 12:14 Comment) metronidazole (From Flagyl) AdvReac Agitation Verified 02/05/25 12:14 Penicillins AdvReac Other (See Verified 02/05/25 12:14 Comment) Sulfa (Sulfonamide AdvReac anxious Verified 02/05/25 12:14 Antibiotics) General Stated Complaint: Abd Prob MARIAM: 3 Exam Narrative Exam Narrative: Review of Systems: All systems reviewed & are unremarkable except as noted in HPI and below Well-developed, no acute distress Afebrile NCAT PERRL, normal conjunctiva RRR Unlabored respiratory effort Nondistended abdomen , mild generalized tenderness no guarding or rebound Extremities w/o deformity, no cyanosis, no edema No rashes or lesions. no focal neurologic deficits Appropriate mood and affect Course Vital Signs Vital signs: Vital Signs Pulse 90 02/05/25 12:10 Respiratory Rate 16 02/05/25 12:10 Blood Pressure 140/82 02/05/25 12:10 Pulse Oximetry 96 02/05/25 12:10 Temperature Source Oral 02/05/25 12:10 Pulse 90 02/05/25 12:10 Respiratory Rate 16 02/05/25 12:10 Blood Pressure 140/82 02/05/25 12:10 Blood Pressure Position Sitting 02/05/25 12:10 Pulse Oximetry 96 02/05/25 12:10 Pain Level 7 02/05/25 12:10 Lab/Test Results Lab/Test Results: Laboratory Tests Range/Units 02/05/25 12:47 WBC (4.4-10.8) 10^3/uL 7.17 RBC (3.93-5.22) 10^6/uL 4.37 Hgb (11.2-15.7) g/dL 13.6 Hct (36.0-46.0) % 41.3 MCV (80-95) fL 95 MCH (27.0-33.0) pg 31.1 MCHC (32.0-36.0) % 32.9 RDW (11.7-14.6) % 13.6 Plt Count (130-400) 10^3/uL 135 MPV (8.0-11.0) fL 10.4 Immature Gran % % 0.0 Neutrophils % % 50.0 Band Neutrophils % % 1 Lymphocytes % % 25.0 Atypical Lymphs % % 2 Monocytes % % 17.0 Eosinophils % % 3.0 Basophils % % 1.0 Metamyelocytes % 1 Nucleated RBC % (0.0-0.3) % 0.0 Absolute Neutrophils (1.2-6.7) 10^3/uL 3.66 Absolute Lymphocytes (1.2-3.4) 10^3/uL 1.94 Absolute Monocytes (0.1-0.8) 10^3/uL 1.22 H Absolute Eosinophils (0.0-0.7) 10^3/uL 0.22 Absolute Basophils (0.0-0.2) 10^3/uL 0.07 RBC Morphology Normal ESR (0-30) mm/hr 21 Sodium (136-145) mmol/L 139 Potassium (3.5-5.1) mmol/L 3.9 Chloride (98-107) mmol/L 101 Carbon Dioxide (21.0-32.0) mmol/L 25.7 Anion Gap (3-11) mmol/L 12.3 H BUN (7-18) mg/dL 9 Creatinine (0.55-1.02) mg/dL 0.8 Est GFR (CKD-EPI 2020) (mL/min/1.73m2) 80.21 Glucose (74-106) mg/dL 104 Calcium (8.5-10.1) mg/dL 9.1 Total Bilirubin (0.2-1.0) mg/dL 0.4 AST (15-37) U/L 17 ALT (14-59) U/L 19 Alkaline Phosphatase (46-116) U/L 77 C-Reactive Protein (<or=0.5) mg/dL < 0.50 Total Protein (6.4-8.2) g/dL 7.7 Albumin (3.4-5.0) g/dL 3.8 Medical Decision Making Emergent evaluation of abdominal pain and recent diagnosis of diverticulitis. I reviewed the patient's medical record and noted diverticulitis on her CT scan with concern for abscess development. The patient reports continued severe p ain. She is afebrile and hemodynamically stable. Her abdominal examination is fairly benign. With only some mild tenderness, no focality or peritoneal signs. Concern for perforation worsened abscess or other complication is considered. The patient was given droperidol's for help with her symptoms which completely resolved her pain and discomfort. The patient lab work was obtained, there is s ignificant improvement in her white blood cell count, and her inflammatory markers are not elevated at all. I do not suspect a severe infection or sepsis. A repeat CT scan was obtained given her prior diagnosis of mural abscess. The CT scan findings were discussed with the radiologist and there is no evidence of abscess today, and overall her findings of diverticulitis do appear to be improved. The patient is feeling much better at this time and feels she is stable for discharge home with continuation of home therapy. She will continue her Augmentin as prescribed. I have given her a few doses of oral morphine to take for severe pain. She understands to take one half tab every 8 hours as needed for severe pain not controlled by the Tylenol. She understands to return to the emergency department if she develops fever vomiting or other worsened symptoms or concerns. Quality:SDOH Health Related Social Needs: 2 Health related social needs housing instability, house d, with risk of homelessness (Z59.811) [facility] All Active Problems (Updated 02/05/25 @ 14:02 by Ab Haynes MD) Diverticulitis (Chronic) Diverticulitis of intestine with abscess (Acute) Bipolar I disorder (Chronic) [facility] Alcohol use disorder (Chronic) Diverticular stricture (Chronic) Followed by [facility] Colon stricture (Chronic) Followed by 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 Diabetes mellitus Surgical History S/P cholecystectomy S/P BSO (bilateral salpingo-oophorectomy) (07/03/15) Status post foot surgery History of total vaginal hysterectomy (TVH) (07/03/15) With cystoscopy and rectocele repair History of esophagogastroduodenoscopy History of bilateral ligation of fallopian tubes Family History Mother Stroke Lung cancer Hypertension Father Heart disease Hyperlipidemia Hypertension Brother Heart disease DOUBLE BYPASS AGE 48 (NON SMOKER) Hyperlipidemia Son Depression Daughter Depression Maternal Grandfather Lung cancer Maternal Grandmother Heart disease Myocardial infarction Paternal Grandfather No problems noted. Paternal Grandmother Diabetes Social History Smoking/Tobacco Use Status: Former Tobacco Use Quit Date: 09/05/77 Smoking risk assessment performed?: Yes Alcohol Intake: never Drug use: Never Substance use type: does not use Housing: house Do you feel safe at home: Yes Do you feel safe in your relationship?: Yes Additional Social history: lives alone / no car
== END 2025-02-05 14:20 | disposition home or self-care (01) ==
PROVIDERS: Emergency Provider Emergency Medicine; PCP Nurse Practitioner Family
DX: K57.32 Diverticulitis of large intestine without perforation or abscess without bleeding (principal); I10 Essential (primary) hypertension; E78.5 Hyperlipidemia, unspecified; E11.9 Type 2 diabetes mellitus without complications; Z79.82 Long term (current) use of aspirin; Z87.891 Personal history of nicotine dependence
CPT/HCPCS: 80053; 85652; 96374; 99285; 74177; 85025; 86140; J1790; J3490

== ENCOUNTER 2025-03-11 18:52 | Outpatient (REF) | payer MEDICARE, SELFPAY ==
[2025-03-11 20:58] LABS: Abs Immature Grans 0.32 10^3/uL (0.0-0.06); HCT 44.1 % (36.0-46.0); HGB 14.7 g/dL (11.2-15.7); Immature Grans % 4.6 %; MCH 31.3 pg (27.0-33.0); MCHC 33.3 % (32.0-36.0); MCV 94 fL (80-95); MPV 12.8 fL (8.0-11.0); Platelet Count 100 10^3/uL (130-400); RBC 4.69 10^6/uL (3.93-5.22); RDW 13.4 % (11.7-14.6); RDW-SD 46.5 fL; WBC 6.98 10^3/uL (4.4-10.8)
[2025-03-11 21:16] LABS: ALT 21 U/L (14-59); AST 19 U/L (15-37); Albumin 4.3 g/dL (3.4-5.0); Alkaline Phosphatase 76 U/L (46-116); Anion Gap 12.4 mmol/L (3-11); BUN 8 mg/dL (7-18); Bilirubin, Total 0.5 mg/dL (0.2-1.0); CO2 25.6 mmol/L (21.0-32.0); Calcium 9.5 mg/dL (8.5-10.1); Chloride 96 mmol/L (98-107); Estimated GFR 97.71 (mL/min/1.73m2); Glucose 93 mg/dL (74-106); Potassium 4.0 mmol/L (3.5-5.1); Sodium 134 mmol/L (136-145); Total Protein 8.0 g/dL (6.4-8.2)
== END 2025-03-11 18:53 | disposition home or self-care (01) ==
LOC: LBN 18:52
PROVIDERS: PCP Nurse Practitioner Family; Visit Provider Nurse Practitioner Family
DX: K57.92 Diverticulitis of intestine, part unspecified, without perforation or abscess without bleeding (principal)
CPT/HCPCS: 80053; 85025

== ENCOUNTER 2025-03-13 03:15 | Outpatient (CLI) | payer MEDICARE, MEDICAID, SELFPAY ==
--- NOTE | 2025-03-13 07:20 | DI.MAMMO_ITS ---
Exam(s) US BREAST LT LIMITED MAMMO DIAGNOSTIC BI EXAM: MAMMO DIAGNOSTIC BI CLINICAL HISTORY: NEW BREAST LUMPS, BILAT,N63.10,N63.20. COMPARISON: 2015 through 2023 TECHNIQUE: Craniocaudal and mediolateral oblique Full Field Digital Mammography views of both breasts with Computer Aided Diagnosis followed by Tomosynthesis and left breast ultrasound. FINDINGS: Mammography/Tomosynthesis: Masses: None seen. Architectural Distortion: None seen. Microcalcifications: No suspicious pleomorphic-type are seen. Skin Thickening/Nipple Retraction: None. Left breast US: Echotexture: Normal appearance of the glandular tissue. Shadowing: No suspicious foci. Cyst: None. Solid lesions: None seen. Ductal dilation: None. IMPRESSION: 1. No evidence of malignancy is noted. 2. Unless there is more urgent need, follow-up screening mammography is recommended, as per [place] [employer] guidelines. BI-RADS Category 1 - Negative Breast Density - Category B - There are scattered areas of fibroglandular density. Breast density Category C or D implies that the patient has dense breast tissue. Dense breast tissue can make it harder to find cancer on a mammogram. Dense breast tissue is also associated with an increased risk of breast cancer. This information about the result of the mammogram report was provided to the patient to raise their awareness. Use this report when you speak with the patient about their risks for breast cancer, which includes their family history. At that time, you may recommend additional screening tests (Ultrasound or MRI) as these tests may add significant information. A negative radiographic report should not delay biopsy if a dominant or clinically suspicious mass is present. Up to ten percent of cancers are not identified on mammography. A negative report may reinforce clinical impression. Adenosis and dense breasts may obscure an underlying neoplasm. False positive reports average 6 to 10%. Patient will receive a letter notifying them of these results.
== END 2025-03-13 03:35 ==
LOC: DI 03:15
PROVIDERS: PCP Nurse Practitioner Family; Visit Provider Nurse Practitioner Family
DX: Z12.31 Encounter for screening mammogram for malignant neoplasm of breast (principal); N63.21 Unspecified lump in the left breast, upper outer quadrant; N63.12 Unspecified lump in the right breast, upper inner quadrant
CPT/HCPCS: 76642; 77062; 77066; G0279

== ENCOUNTER 2025-03-27 10:48 | Emergency (ER) | payer MEDICARE, MEDICAID, SELFPAY ==
[2025-03-27] VITALS (10 sets, daily range): BP systolic 136–181; BP diastolic 69–127; PULSE 64–90; RESP 16–18; TEMP 36.7; O2SAT 98
--- NOTE | 2025-03-27 10:59 | ED.GENADUL_ITS ---
Discharge Plan Disposition Patient Disposition: Home Discharge Details Clinical Impression: Acute diverticulitis Primary Care Provider: Cathie Strange ED Provider: Dennis Willis [place] Meds and New Rx's Prescriptions: New sulfamethoxazole-trimethoprim [Bactrim DS] 800-160 mg tablet 1 tab PO BID 7 Days Qty: 14 0RF metronidazole 500 mg tablet 500 mg PO BID 7 Days Qty: 14 0RF No Action lamotrigine 200 mg tablet 200 mg PO QHS lamotrigine 100 mg tablet 100 mg PO QAM aspirin [Children's Aspirin] 81 mg tablet,chewable 81 mg PO DAILY Qty: 90 3RF atorvastatin [Lipitor] 10 mg tablet 10 mg PO DAILY Qty: 90 3RF trazodone 100 mg tablet 250 mg PO QHS Rexulti 3 mg tablet 3 mg PO DAILY diclofenac sodium [Voltaren Arthritis Pain] 1 % gel 2 g topical QID PRN (Reason: joint pain) Qty: 100 1RF Rx Instructions: apply to single elbow, wrist or hand; for hand includes palm/fingers/back of hand cyclobenzaprine 5 mg tablet 5 mg PO TID PRN (Reason: muscle spasm) Qty: 30 0RF amlodipine 5 mg tablet 5 mg PO DAILY Qty: 90 3RF esomeprazole magnesium [Nexium] 40 mg capsule,delayed release(DR/EC) 40 mg PO DAILY Qty: 90 3RF fluconazole 150 mg tablet 150 mg PO Q3D Qty: 2 0RF rizatriptan 10 mg tablet,disintegrating 10 mg translingual ONCE Qty: 14 3RF ondansetron HCl 4 mg tablet See Rx Instructions .ROUTE .COMPLEX Qty: 20 0RF Dose Instruction: TAKE 1 TABLET BY MOUTH EVERY 8 HOURS NEEDED FOR NAUSEA OR VOMITING Rx Instructions: TAKE 1 TABLET BY MOUTH EVERY 8 HOURS NEEDED FOR NAUSEA OR VOMITING sertraline 100 mg tablet 100 mg PO DAILY Discharge Instructions Instructions: Diverticulitis (DC) Additional Instructions: You were seen in the emergency department for abdominal pain. You are found to have another episode of diverticulitis. As we discussed this is a chronic condition and you will likely benefit from having a portion of your colon removed. Please follow-up with the general surgery clinic. Please return to the emergency department if you develop fevers worsening abdominal pain nausea vomiting or cannot take your antibiotics as directed. For your pain please take medications as follows: 1. Take acetaminophen (Tylenol), 1,000 mg (two 500 mg tabs) every 6 hours Referrals: [facility] [Provider Group] Discharge Data Discharge Date/Time-TO BE ENTERED AT DEPARTURE: 03/27/25 15:19 HPI General Date/Time Provider Initiated Documentation: 03/27/25 10:58 . HPI Narrative: MDM Patient found to have acute on chronic diverticulitis but no signs of microperforation abscess or free air. I talked to Dr. Ramos from general surgery. She will help to arrange close follow-up for discussion of colonic resection. Will treat patient with trimethoprim/sulfamethoxazole and metronidazole despite allergies of anxiety. Patient I discussed return indications including worsening pain fevers or chills or inability tolerate p.o. Her chemistry lacked any JORDANA or any electrolyte abnormalities. She had no anemia no thrombocytopenia no leukocytosis. She had no pain out of proportion to suggest necrotizing soft tissue infection. She had no signs of ureterolithiasis. Concerning her back pain she has no history of malignancy to suggest increased risk for pathological fracture. No B symptoms to suggest new onset malignancy. No history of IV drug use to suggest increased risk for spinal epidural abscess. No history of anticoagulation or recent spinal epidural procedures to suggest increased risk for spinal epidural hematoma. No rash to back to suggest zoster. No loss of bowel or bladder control to suggest increased risk for cauda equina syndrome. I advised acetaminophen for her pain. We discussed return indications including loss of bowel or bladder control. Any worsening abdominal pain inability tolerate p.o. She understood to return indications and was discharged with general surgery outpatient follow-up. HPI This is a patient with a history of diverticulitis presenting with abdominal pain. The patient reports experiencing generalized abdominal pain, which is most severe upon palpation. The pain began recently and is associated with a sensation of constipation. The patient has been taking Augmentin. Two nights ago, the patient attempted to vomit and currently feels nauseous. The patient reports no diarrhea. Additionally, the patient has a new onset of back pain on the right side, which started today and is described as muscular in nature, not radiating from the abdomen. The patient has no history of abdominal surgeries, cancer, or intravenous drug use. The patient reports no burning sensation during urination, no history of kidney stones, no fevers, no difficulty breathing, and no chest pain. No loss of bowel or bladder control. Exam General: Well-appearing in no acute distress speaking in complete sentences. Head: Normocephalic, atraumatic. Eye: Extraocular eye movements intact. No conjunctival injection. No scleral icterus. Ear, nose, mouth, throat: Grossly normal inspection. Normal voice, handling secretions normally. Neck: Trachea midline. No midline cervical spinal tenderness. Cardiovascular: Well-perfused distal extremities. Respiratory: Nonlabored respiration. Clear lungs bilaterally. Gastrointestinal: Nondistended abdomen. Soft. Minimal left lower quadrant tenderness. No rebound. No guarding. Back: Patient had mild right-sided paraspinal lumbar muscle tenderness. No midline thoracic nor lumbar spinal tenderness. Musculoskeletal: No edema. Moving all 4 extremities spontaneously. Skin: Normal for age and race, grossly normal temperature and turgor. No acute rash. Neurologic: Alert and appropriate, no apparent acute deficits. Psychiatric: Mood and manner are appropriate. Grooming and personal hygiene are appropriate. Related Data Home Medications ?Medication ?Instructions ?Recorded ?Confirmed sertraline 100 mg tablet 100 mg PO DAILY 09/30/2312/28 lamotrigine 100 mg tablet 100 mg PO QAM 10/21/2302/06 lamotrigine 200 mg tablet 200 mg PO QHS 10/21/2302/06 trazodone 100 mg tablet 250 mg PO QHS 09/07/2402/06 brexpiprazole 3 mg tablet (Rexulti) 3 mg PO DAILY 05/3002/06/25 aspirin 81 mg chewable tablet 81 mg PO DAILY #90 tabs 09/25/24 02/06/25 (Children's Aspirin) atorvastatin 10 mg tablet (Lipitor) 10 mg PO DAILY #90 tabs 09/25/24 02/06/25 diclofenac sodium 1 % topical gel 2 g topical QID PRN joint pain 09/25/24 02/06/25 (Voltaren Arthritis Pain) #100 grams cyclobenzaprine 5 mg tablet 5 mg PO TID PRN muscle spa sm #30 10/03/24 02/06/25 tabs amlodipine 5 mg tablet 5 mg PO DAILY #90 tabs 11/0602/06/25 esomeprazole magnesium 40 mg 40 mg PO DAILY #90 caps 0 12/20/24 02/06/25 capsule,delayed release (Nexium) fluconazole 150 mg tablet 150 mg PO Q3D 2 doses #2 tab s 02/07/25 rizatriptan 10 mg disintegrating 10 mg translingual ON CE #14 tabs 03/04/25 tablet ondansetron HCl 4 mg tablet See Rx Instructions .Route 03/25/25 .COMPLEX #20 tabs metronidazole 500 mg tablet 500 mg PO BID 7 days #14 t abs 03/27/25 sulfamethoxazole 800 1 tab PO BID 7 days #14 tabs 03/27/25 mg-trimethoprim 160 mg tablet (Bactrim DS) Previous Rx's ?Medication ?Instructions ?Recorded aspirin 81 mg chewable tablet 81 mg PO DAILY #90 tabs 09/25/24 (Children's Aspirin) atorvastatin 10 mg tablet (Lipitor) 10 mg PO DAILY #90 tabs 09/25/24 diclofenac sodium 1 % topical gel 2 g topical QID PRN joint pain 09/25/24 (Voltaren Arthritis Pain) #100 grams cyclobenzaprine 5 mg tablet 5 mg PO TID PRN muscle spa sm #30 10/03/24 tabs amlodipine 5 mg tablet 5 mg PO DAILY #90 tabs 11/06 esomeprazole magnesium 40 mg 40 mg PO DAILY #90 caps 0 12/20/24 capsule,delayed release (Nexium) fluconazole 150 mg tablet 150 mg PO Q3D 2 doses #2 tab s 02/07/25 rizatriptan 10 mg disintegrating 10 mg translingual ON CE #14 tabs 03/04/25 tablet ondansetron HCl 4 mg tablet See Rx Instructions .Route 03/25/25 .COMPLEX #20 tabs metronidazole 500 mg tablet 500 mg PO BID 7 days #14 t abs 03/27/25 sulfamethoxazole 800 1 tab PO BID 7 days #14 tabs 03/27/25 mg-trimethoprim 160 mg tablet (Bactrim DS) Allergies Allergy/AdvReac Type Severity Reaction Status Date / Time latex AdvReac Severe Skin Rash Verified 03/27/25 10:05 amoxicillin (From Augmentin) AdvReac Agitation Verified 03/27/25 10:05 azithromycin (From Zithromax) AdvReac headache, Verified 03/27/25 10:05 hearing loss,double vision, DAVILA ciprofloxacin (From Cipro) AdvReac Dizziness/L Verified 03/27/25 10:05 ightheade clavulanic acid (From AdvReac Agitation Verified 03/27/25 10:05 Augmentin) codeine AdvReac GI upset Verified 03/27/25 10:05 doxycycline AdvReac Other (See Verified 03/27/25 10:05 Comment) metronidazole (From Flagyl) AdvReac Agitation Verified 03/27/25 10:05 Penicillins AdvReac Other (See Verified 03/27/25 10:05 Comment) Sulfa (Sulfonamide AdvReac anxious Verified 03/27/25 10:05 Antibiotics) General Stated Complaint: Abd Prob MARIAM: 3 Course Vital Signs Vital signs: Vital Signs Temperature 36.7 C 03/27/25 10:55 Pulse 90 03/27/25 10:55 Respiratory Rate 18 03/27/25 10:55 Blood Pressure 165/90 H 03/27/25 10:55 Pulse Oximetry 98 03/27/25 10:55 Temperature 36.7 C 03/27/25 10:55 Temperature Source Oral 03/27/25 10:55 Pulse 90 03/27/25 10:55 Respiratory Rate 18 03/27/25 10:55 Blood Pressure 165/90 H 03/27/25 10:55 Blood Pressure Position Sitting 03/27/25 10:55 Pulse Oximetry 98 03/27/25 10:55 Oxygen Delivery Method Room Air 03/27/25 10:55 Oxygen Flow Rate 0 03/27/25 10:55 Pain Level 6 03/27/25 10:55 Medical Decision Making Quality:SDOH Health Related Social Needs: Health related social needs risk of homeless PFSH All Active Problems (Updated 03/27/25 @ 15:00 by Dennis Willis MD) Acute diverticulitis (Acute) Bipolar I disorder (Chronic) [facility] Alcohol use disorder (Chronic) Diverticular stricture (Chronic) Followed by [facility] Colon stricture (Chronic) Followed by [facility] Cramer's esophagus (Chronic) On 2009 EGD, not on 2012 EGD, on 2023 EGD Gastroesophageal reflux disease with esophagitis (Chronic) Diverticulosis of colon (Chronic) Chronic diarrhea (Chronic) Hypertension (Chronic) Hyperlipidemia (Chronic) Hiatal hernia (Chronic) Migraine (Chronic) 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) Glaucoma (Chronic) Allergic rhinitis (Chronic) Medical History TIA (transient ischemic attack) (~05/2024) TMJ (temporomandibular joint disorder) Diverticulitis of sigmoid colon Multiple episodes, seeing [facility] Diabetes mellitus Surgical History S/P cholecystectomy S/P BSO (bilateral salpingo-oophorectomy) (07/03/15) Status post foot surgery History of total vaginal hysterectomy (TVH) (07/03/15) With cystoscopy and rectocele repair History of esophagogastroduodenoscopy History of bilateral ligation of fallopian tubes Family History Mother Stroke Lung cancer Hypertension Father Heart disease Hyperlipidemia Hypertension Brother Heart disease DOUBLE BYPASS AGE 48 (NON SMOKER) Hyperlipidemia Son Depression Daughter Depression Maternal Grandfather Lung cancer Maternal Grandmother Heart disease Myocardial infarction Paternal Grandfather No problems noted. Paternal Grandmother Diabetes Social History Smoking/Tobacco Use Status: Former Tobacco Use Quit Date: 09/05/77 Smoking risk assessment performed?: Yes Alcohol Intake: never Drug use: Never Substance use type: does not use Housing: house Do you feel safe at home: Yes Do you feel safe in your relationship?: Yes Additional Social history: lives alone / no car
--- NOTE | 2025-03-27 10:59 | DI.CT_ITS ---
Exam(s) CT ABDOMEN PELVIS W EXAM: CT ABDOMEN PELVIS W CLINICAL HISTORY: Left lower quadrant pain TECHNIQUE: Imaging Protocol: Axial computed tomography images with coronal and sagittal reformatted images were created and reviewed. CONTRAST MATERIAL: Intravenous: Omnipaque 350 Contrast volume:75 mL Oral: No COMPARISON: CT CT ABDOMEN PELVIS W from 01/30/[address] ABDOMEN PELVIS W from 02/05/2025 FINDINGS: ABDOMEN: Lung Bases: There is a small hiatal hernia. There is scarring again seen in the right lower lobe. Liver: Normal density. No measurable mass. Portal, Superior Mesenteric, and Splenic Veins: Unremarkable. Gallbladder and Biliary Tract: Status post cholecystectomy. No significant biliary ductal dilatation. Pancreas: Normal density, no abnormal calcifications or inflammatory process. Spleen: There is a tiny hypodensity in the superior aspect of the spleen. This likely reflects a small cyst or hemangioma. Adrenals: No masses seen. Kidneys: Normal size, contour and axis. No radiodense stones or obstructive uropathy. There is a stable fat density mass in the left kidney consistent with an angiomyolipoma. Abdominal Aorta: Abdominal portion non-dilated. Atherosclerotic calcification is present. Bowel: There is diverticulosis of the colon. There is bowel wall thickening and pericolonic inflammation in the distal sigmoid colon consistent with acute diverticulitis. The remainder of the bowel is unremarkable. There is no evidence of obstruction. There is no evidence of appendicitis. Peritoneal Cavity: No ascites, collection or mesenteric inflammatory response. No free air. Lymph Nodes: Within normal limits. Bones: Within normal limits for the patient's age. Soft Tissues: There is a small midline upper abdominal anterior abdominal wall fat containing hernia. PELVIS: Bladder: Symmetric distention, no gross wall thickening. Reproductive Organs: Status post hysterectomy. Lymph Nodes: Within normal limits. Bones: Within normal limits for the patient's age. IMPRESSION: Acute diverticulitis involving the distal sigmoid colon. No evidence of abscess or free air. RADIATION DOSE DELIVERED: 472.13mGy.cm Total DLP DATA REPOSITORY: All CT scans at this facility are submitted to the National Radiology Data Registry (NRDR) Dose Index Registry (DIR) with the [employer] (ACR). RADIATION OPTIMIZATION: All CT scans at this facility use at least one of these dose optimization techniques: automated exposure control; mA and/or kV adjustment per patient size (includes targeted exams where dose is matched to clinical indication); or iterative reconstruction.
[2025-03-27 12:20] LABS: Abs Immature Grans 0.17 10^3/uL (0.0-0.06); HCT 42.7 % (36.0-46.0); HGB 14.3 g/dL (11.2-15.7); Immature Grans % 2.0 %; MCH 31.9 pg (27.0-33.0); MCHC 33.5 % (32.0-36.0); MCV 95 fL (80-95); MPV 10.8 fL (8.0-11.0); Platelet Count 127 10^3/uL (130-400); RBC 4.48 10^6/uL (3.93-5.22); RDW 13.2 % (11.7-14.6); RDW-SD 47.0 fL; WBC 8.51 10^3/uL (4.4-10.8)
[2025-03-27 12:35] LABS: ALT 22 U/L (14-59); AST 17 U/L (15-37); Albumin 4.1 g/dL (3.4-5.0); Alkaline Phosphatase 73 U/L (46-116); Anion Gap 12.5 mmol/L (3-11); BUN 5 mg/dL (7-18); Bilirubin, Total 0.4 mg/dL (0.2-1.0); CO2 23.5 mmol/L (21.0-32.0); Calcium 9.0 mg/dL (8.5-10.1); Chloride 103 mmol/L (98-107); Estimated GFR 80.21 (mL/min/1.73m2); Glucose 106 mg/dL (74-106); Lipase 33 U/L (<78); Potassium 3.5 mmol/L (3.5-5.1); Sodium 139 mmol/L (136-145); Total Protein 8.1 g/dL (6.4-8.2)
[2025-03-27] MEDS: Ondansetron 4 MG/2 ML VIAL IVP (12:35)
[2025-03-27] MEDS: Ketorolac 15 MG/ML VIAL IVP (12:35)
[2025-03-27] MEDS: Normal Saline - Diluent 50 ML VIAL IJ (12:54)
[2025-03-27] MEDS: Omnipaque 350 MG/ML 100 ML BTL IJ (12:55)
--- NOTE | 2025-03-30 16:31 | NUR.NOTE ---
Nursing Note: Received call from patient that she thinks her new antibiotics are going to her head and that she can't take them. Medications prescribed were listed on her allergy list as an adverse reaction for agitation. Call transferred to ANKUSH Magaña to discuss w/patient
== END 2025-03-27 15:19 | disposition home or self-care (01) ==
PROVIDERS: Emergency Provider Emergency Medicine; PCP Nurse Practitioner Family
DX: K57.32 Diverticulitis of large intestine without perforation or abscess without bleeding (principal); I10 Essential (primary) hypertension; E78.5 Hyperlipidemia, unspecified; E11.9 Type 2 diabetes mellitus without complications; Z86.73 Personal history of transient ischemic attack (TIA), and cerebral infarction without residual deficits; Z79.82 Long term (current) use of aspirin; Z87.891 Personal history of nicotine dependence
CPT/HCPCS: 36415; 80053; 83690; 96374; 96375; 99285; 74177; 85025; J1885; J2405; J3490

== ENCOUNTER → 2025-04-03 10:58 | Outpatient (BNVA) | payer MEDICARE, MEDICAID, SELFPAY | PROVIDERS: PCP Nurse Practitioner Family; Referring Provider Nurse Practitioner Family; Visit Provider Surgery | DX: R10.13 Epigastric pain (principal); R10.30 Lower abdominal pain, unspecified; Z87.19 Personal history of other diseases of the digestive system | CPT/HCPCS: 99213 ==

== ENCOUNTER 2025-04-03 11:58 | Inpatient (IN) | payer MEDICARE, MEDICAID, SELFPAY ==
[2025-04-03] VITALS (28 sets, daily range): BP systolic 100–161; BP diastolic 67–83; PULSE 61–87; RESP 12–31; TEMP 35.7–39.7; O2SAT 91–95
--- NOTE | 2025-04-03 12:00 | RT.EKG_ITS ---
APPROVED REPORT Exam: Resting ECG Reason for Exam: nausea, dizziness, abd pain Patient Location: E HR:75 bpm ECG Measurements Heart Rate 75 AXIS DC 146 P 32 QRSd 94 QRS 2 QT 390 T 38 QTc 435 Conclusion Sinus rhythm...normal P axis, V-rate 60- 99 Probable left atrial enlargement...P >50mS, <-0.10mV V1 Sinus Rhythm. When compared to prior 01/30/25 no PVC is noted. WD
--- NOTE | 2025-04-03 12:15 | DI.CT_ITS ---
Exam(s) CT ABDOMEN PELVIS W EXAM: CT ABDOMEN PELVIS W CLINICAL HISTORY: abd pain, hx diverticulitis. TECHNIQUE: Imaging Protocol: Axial computed tomography images with coronal and sagittal reformatted images were created and reviewed CONTRAST MATERIAL: Intravenous: Omnipaque-350 100cc Oral: None COMPARISON: CT CT ABDOMEN PELVIS W from 03/27/2025 FINDINGS: VISUALIZED LUNG BASES: Mild increased markings in both lung bases posterior basal segments both lower lobes, more so than previous. No pleural effusions.. ABDOMEN: There is no ascites. LIVER: There are no significant focal hepatic lesions evident. There are minimally dilated intrahepatic ducts in both hepatic lobes in this patient has had prior cholecystectomy. CBD diameter is upper normal. Most probably related to post cholecystectomy affect. There are no calculi nor obvious masses in the CBD nor in the surrounding pancreatic head. GALLBLADDER/BILIARY: Previous cholecystectomy. See above PANCREAS: No evidence of pancreatic mass nor dilatation of the pancreatic duct. SPLEEN: Spleen is not enlarged. No obvious intrasplenic lesions. Splenic and portal veins are patent. ADRENALS: There are no significant adrenal masses. KIDNEYS:Right kidney unremarkable. Again noted is a well-defined fatty lesion in the lateral cortex of the left kidney which is similar to previous and most probably an angiomyolipoma. There are no calculi nor hydronephrosis. No hydroureter.. ABDOMINAL AORTA: Moderate atherosclerotic involvement. No aneurysm. LYMPH NODES:There is no retroperitoneal nor paraaortic adenopathy. ABDOMINAL WALL: No evidence of significant anterior abdominal wall nor inguinal hernia. GI: Small hiatal hernia. No evidence of small-bowel obstruction. Small-bowel diameters are upper normal. Some contain fluid. PELVIS: GI: The cecum is mobile and left of center in the abdomen above the level of the pelvis. There is in appendicolith in the appendix but no evidence of acute appendicitis. There is diverticulosis throughout the colon. Again noted is some streaking around diverticuli in the lower sigmoid anterior to the lower sacrum consistent with an element of ongoing acute/subacute diverticulitis. This is similar appearance to 03/27/2025. Has not resolved. LYMPH NODES: There is no intrapelvic nor inguinal adenopathy. REPRODUCTIVE: Uterus is surgically absent. No ovarian masses evident. URINARY BLADDER: No calculi nor obvious masses evident. There is no gas within the bladder lumen to suggest fistulous communication. OSSEOUS: No fractures and no significant osseous lesions. Mild degenerative anterolisthesis of L4 upon L5 related to facet arthropathy. There are no pars defects. Some disc space narrowing at L5-S1 level noted. IMPRESSION: 1. Persistent signs of diverticulitis in lower sigmoid. No obvious form abscess. No free air. No gas in the portal venous system. No gas in the adjacent urinary bladder lumen. Scattered diverticuli are noted throughout the length. 2. Again noted is evidence of previous cholecystectomy and hysterectomy 3. There is a mobile cecum which is located on left of center and and above the level the pelvis. The appendix contains an appendicolith but there is no evidence of acute appendicitis. 4. Other findings as above. Findings discussed by phone with ER physician 04/03/2025 at 3:20 p.m. RADIATION DOSE DELIVERED: 723.64mGy.cm Total DLP DATA REPOSITORY: All CT scans at this facility are submitted to the National Radiology Data Registry (NRDR) Dose Index Registry (DIR) with the [employer] (ACR). RADIATION OPTIMIZATION: All CT scans at this facility use at least one of these dose optimization techniques: automated exposure control; mA and/or kV adjustment per patient size (includes targeted exams where dose is matched to clinical indication); or iterative reconstruction.
--- NOTE | 2025-04-03 12:48 | W.ED.GENAD ---
Discharge Plan Disposition Patient Disposition: Admit to [facility] Condition: Stable Discharge Details Clinical Impression: Acute diverticulitis, Failure of outpatient treatment Primary Care Provider: Cathie Strange ED Provider: Dominga Rubalcava Home Meds and New Rx's Prescriptions: No Action lamotrigine 200 mg tablet 200 mg PO QHS aspirin [Children's Aspirin] 81 mg tablet,chewable 81 mg PO DAILY Qty: 90 3RF atorvastatin [Lipitor] 10 mg tablet 10 mg PO DAILY Qty: 90 3RF trazodone 100 mg tablet 250 mg PO QHS Rexulti 3 mg tablet 3 mg PO DAILY amlodipine 5 mg tablet 5 mg PO DAILY Qty: 90 3RF esomeprazole magnesium [Nexium] 40 mg capsule,delayed release(DR/EC) 40 mg PO DAILY Qty: 90 3RF rizatriptan 10 mg tablet,disintegrating 10 mg translingual ONCE Qty: 14 3RF ondansetron HCl 4 mg tablet See Rx Instructions .ROUTE .COMPLEX Qty: 20 0RF Dose Instruction: TAKE 1 TABLET BY MOUTH EVERY 8 HOURS NEEDED FOR NAUSEA OR VOMITING Rx Instructions: TAKE 1 TABLET BY MOUTH EVERY 8 HOURS NEEDED FOR NAUSEA OR VOMITING sertraline 100 mg tablet 100 mg PO DAILY HPI General Date/Time Provider Initiated Documentation: 04/03/25 12:16. HPI Narrative: 70-year-old female with history of diverticulitis presents for evaluation of ongoing abdominal pain as well as dizziness. Patient was seen here last week and diagnosed with diverticulitis. She states that she has taken 5-1/2 days of Bactrim and Flagyl. She was seeing surgery in follow-up today. They referred her back to the emergency department for ongoing pain and nausea. Patient states that she is able to eat but does have diffuse pain and nausea. She feels bloated and constipated. She did have a small bowel movement today. She denies any blood in her stool. No urinary difficulty. She states today she felt weak and dizzy. Denies any headache. No numbness or tingling to his extremities. No weakness in her extremities. Related Data Home Medications ?Medication ?Instructions ?Recorded ?Confirmed sertraline 100 mg tablet 100 mg PO DAILY 09/30/23 04/03/25 lamotrigine 200 mg tablet 200 mg PO QHS 10/21/23 04/03/25 trazodone 100 mg tablet 250 mg PO QHS 09/07/24 04/03/25 brexpiprazole 3 mg tablet (Rexulti) 3 mg PO DAILY 09/13/24 04/03/25 aspirin 81 mg chewable tablet 81 mg PO DAILY #90 tabs 09/25/24 04/03/25 (Children's Aspirin) Held on 04/03/25. Instructions: Pt Stopped/Never Started atorvastatin 10 mg tablet (Lipitor) 10 mg PO DAILY #90 tabs 09/25/24 04/03/25 Held on 04/03/25. Instructions: Changed by Provider amlodipine 5 mg tablet 5 mg PO DAILY #90 tabs 11/06/24 04/03/25 esomeprazole magnesium 40 mg 40 mg PO DAILY #90 caps 12/20/24 04/03/25 capsule,delayed release (Nexium) rizatriptan 10 mg disintegrating 10 mg translingual ONCE #14 tabs 03/04/25 04/03/25 tablet ondansetron HCl 4 mg tablet See Rx Instructions .Route 03/25/25 04/03/25 .COMPLEX #20 tabs Previous Rx's ?Medication ?Instructions ?Recorded aspirin 81 mg chewable tablet 81 mg PO DAILY #90 tabs 09/25/24 (Children's Aspirin) Held on 04/03/25. Instructions: Pt Stopped/Never Started atorvastatin 10 mg tablet (Lipitor) 10 mg PO DAILY #90 tabs 09/25/24 Held on 04/03/25. Instructions: Changed by Provider amlodipine 5 mg tablet 5 mg PO DAILY #90 tabs 11/06/24 esomeprazole magnesium 40 mg 40 mg PO DAILY #90 caps 12/20/24 capsule,delayed release (Nexium) rizatriptan 10 mg disintegrating 10 mg translingual ONCE #14 tabs 03/04/25 tablet ondansetron HCl 4 mg tablet See Rx Instructions .Route 03/25/25 .COMPLEX #20 tabs Allergies Allergy/AdvReac Type Severity Reaction Status Date / Time latex AdvReac Severe Skin Rash Verified 04/03/25 12:15 amoxicillin (From Augmentin) AdvReac Agitation Verified 04/03/25 12:15 azithromycin (From Zithromax) AdvReac headache, Verified 04/03/25 12:15 hearing loss,double vision, DAVILA ciprofloxacin (From Cipro) AdvReac Dizziness/L Verified 04/03/25 12:15 ightheade clavulanic acid (From AdvReac Agitation Verified 04/03/25 12:15 Augmentin) codeine AdvReac GI upset Verified 04/03/25 12:15 doxycycline AdvReac Other (See Verified 04/03/25 12:15 Comment) metronidazole (From Flagyl) AdvReac Agitation Verified 04/03/25 12:15 Penicillins AdvReac Other (See Verified 04/03/25 12:15 Comment) Sulfa (Sulfonamide AdvReac anxious Verified 04/03/25 12:15 Antibiotics) General Stated Complaint: Abd Prob MARIAM: 3 Review of Systems Narrative: Remainder of review of systems otherwise negative except for as noted in the HPI x 10. Exam Narrative Exam Narrative: General: non-toxic, no respiratory distress, comfortable HEENT: normocephalic, atraumatic, lids and lashes normal, PERRL, EOMI, anicteric sclera, no conjunctival injection, moist oral mucosa Card: regular rate and rhythm, S1S2, no murmurs, rubs, or gallops Lungs: good air entry, clear to auscultation bilaterally. no wheezes, rales, rhonchi, or retractions Abd: soft, diffusely tender, non-distended, normal bowel sounds, no rebound or guarding, no peritoneal signs, no CVAT Musculoskeletal: full range of motion of arms and legs, no tenderness to palpation. no clubbing, cyanosis, or edema Neurologic: GSC 15, CN 2-12 intact bilaterally, speech normal, strength normal, sensation intact distally in all four extremities, 2+ biceps tendon reflexes, normal finger to nose, normal rapid alternating movements, no pronator drift Psych: alert and oriented Skin: no petechiae, no lesions, warm and dry Course Vital Signs Vital signs: Vital Signs Temperature 36.6 C 04/03/25 12:09 Pulse 74 04/03/25 12:09 Respiratory Rate 20 04/03/25 12:09 Blood Pressure 161/83 H 04/03/25 12:09 Pulse Oximetry 95 04/03/25 12:09 Temperature 36.6 C 04/03/25 12:14 Temperature Source Oral 04/03/25 12:14 Pulse 74 04/03/25 12:14 Respiratory Rate 20 04/03/25 12:14 Blood Pressure 161/83 H 04/03/25 12:14 Blood Pressure Position Sitting 04/03/25 12:14 Pulse Oximetry 95 04/03/25 12:14 Oxygen Delivery Method Room Air 04/03/25 12:14 Oxygen Flow Rate 0 04/03/25 12:14 Pain Level 7 04/03/25 12:14 Medical Decision Making 70-year-old female with history of diverticulitis currently being treated for diverticulitis flare presents for evaluation of ongoing abdominal pain, bloating and dizziness. At time my evaluation she is neurologically intact. NIH score equals 0. Her abdomen is diffusely tender without any rebound or guarding. No peritoneal signs. Laboratory studies unremarkable. CT abdomen pelvis shows persistent diverticulitis. No perforation or abscess noted. Case was discussed with surgeon. They would like patient admitted for IV antibiotics as she has failed outpatient antibiotics. She may require resection if she does not improve. Case discussed with hospitalist who will admit patient. Quality:[facility] Health Related Social Needs: Health related social needs risk of homeless [facility] All Active Problems (Updated 04/03/25 @ 16:07 by Dominga Rubalcava MD) Failure of outpatient treatment (Acute) Acute diverticulitis (Acute) Bipolar I disorder (Chronic) [facility] Alcohol use disorder (Chronic) Diverticular stricture (Chronic) Followed by [facility] Colon stricture (Chronic) Followed by 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 Diabetes mellitus Surgical History S/P cholecystectomy S/P BSO (bilateral salpingo-oophorectomy) (10/29/15) Status post foot surgery History of total vaginal hysterectomy (TVH) (07/03/15) With cystoscopy and rectocele repair History of esophagogastroduodenoscopy History of bilateral ligation of fallopian tubes Family History Mother Stroke Lung cancer Hypertension Father Heart disease Hyperlipidemia Hypertension Brother Heart disease DOUBLE BYPASS AGE 48 (NON SMOKER) Hyperlipidemia Son Depression Daughter Depression Maternal Grandfather Lung cancer Maternal Grandmother Heart disease Myocardial infarction Paternal Grandfather No problems noted. Paternal Grandmother Diabetes Social History Smoking/Tobacco Use Status: Former Tobacco Use Quit Date: 09/05/77 Smoking risk assessment performed?: Yes Alcohol Intake: never Drug use: Never Substance use type: does not use Housing: house Do you feel safe at home: Yes Do you feel safe in your relationship?: Yes Additional Social history: lives alone / no car
[2025-04-03] MEDS: MORPHine 4 MG/ML SYR IVP (12:51)
[2025-04-03] MEDS: Ondansetron 4 MG/2 ML VIAL IVP (12:51)
[2025-04-03] MEDS: Normal Saline 1,000 ML 1000 ML IV (12:52)
[2025-04-03 13:06] LABS: Abs Immature Grans 0.29 10^3/uL (0.0-0.06); HCT 40.6 % (36.0-46.0); HGB 13.5 g/dL (11.2-15.7); Immature Grans % 6.6 %; MCH 31.8 pg (27.0-33.0); MCHC 33.3 % (32.0-36.0); MCV 96 fL (80-95); MPV 10.9 fL (8.0-11.0); Platelet Count 125 10^3/uL (130-400); RBC 4.24 10^6/uL (3.93-5.22); RDW 12.7 % (11.7-14.6); RDW-SD 44.7 fL; WBC 4.37 10^3/uL (4.4-10.8)
[2025-04-03 13:19] LABS: ALT 22 U/L (14-59); AST 18 U/L (15-37); Albumin 3.8 g/dL (3.4-5.0); Alkaline Phosphatase 65 U/L (46-116); Anion Gap 10.0 mmol/L (3-11); BUN 6 mg/dL (7-18); Bilirubin, Total 0.2 mg/dL (0.2-1.0); CO2 26.0 mmol/L (21.0-32.0); Calcium 8.6 mg/dL (8.5-10.1); Chloride 99 mmol/L (98-107); Estimated GFR 94.15 (mL/min/1.73m2); Glucose 104 mg/dL (74-106); Lipase 37 U/L (<78); Magnesium 1.7 mg/dL (1.8-2.4); Potassium 4.3 mmol/L (3.5-5.1); Sodium 135 mmol/L (136-145); Total Protein 7.6 g/dL (6.4-8.2); Troponin I 6 ng/L (<or=51)
[2025-04-03 13:39] LABS: Glucose Negative (Negative)
[2025-04-03 13:51] LABS: RBC Morphology Normal
[2025-04-03 14:15] LABS: Troponin I 6 ng/L (<or=51)
[2025-04-03] MEDS: Normal Saline - Diluent 50 ML VIAL IJ (14:44)
[2025-04-03] MEDS: Omnipaque 350 MG/ML 100 ML BTL IJ (14:45)
[2025-04-03] MEDS: cefTRIAXone 2 GM/50 ML BAG IVPB (16:17)
--- NOTE | 2025-04-03 17:05 | W.PC.ACHO ---
Registration Status: REG ER Primary Language: Preferred Language: Turkish ED Information & Data Chief Complaint Abd Prob 04/03/25 13:21 Chief Complaint Abd Prob 04/03/25 12:51 Triage Note DAVILA, nausea, dizziness and 04/03/25 12:09 worsening general abdominal pain. Reports 04/14. Was sent from Dr. Golden due to concerns of diverticulitis, told pt they may need to dissect colon. Pt afebrile, reports she was here a week ago or so had been taking antibiotics. Reports pain got worse today, took Excedrin at 0730. LBM this AM and no vomiting, just nausea. Medical / Surgical History (Last Reviewed 04/03/25 @ 12:50 by Dominga Rubalcava MD) TIA (transient ischemic attack) (~05/2024) TMJ (temporomandibular joint disorder) Diverticulitis of sigmoid colon Diabetes mellitus (Last Reviewed 04/03/25 @ 12:50 by Dominga Rubalcava MD) S/P cholecystectomy S/P BSO (bilateral salpingo-oophorectomy) (07/03/15) Status post foot surgery History of total vaginal hysterectomy (TVH) (07/03/15) History of esophagogastroduodenoscopy History of bilateral ligation of fallopian tubes Most Recent Vital Signs Temperature 36.6 C 04/03/25 12:14 Temperature Source Oral 04/03/25 12:14 Pulse 66 04/03/25 15:01 Pulse 63 04/03/25 15:40 Respiratory Rate 18 04/03/25 15:40 Blood Pressure 135/78 04/03/25 15:01 Blood Pressure Mean 95 04/03/25 15:01 Blood Pressure Position Sitting 04/03/25 12:14 Pulse Oximetry 95 04/03/25 12:14 Oxygen Delivery Method Room Air 04/03/25 12:14 Oxygen Flow Rate 0 04/03/25 12:14 Pain Level 8 04/03/25 12:51 Allergies latex Adverse Reaction (Severe, Verified 04/03/25 12:15) Skin Rash amoxicillin (From Augmentin) Adverse Reaction (Verified 04/03/25 12:15) Agitation azithromycin (From Zithromax) Adverse Reaction (Verified 04/03/25 12:15) headache, hearing loss,double vision, DAVILA ciprofloxacin (From Cipro) Adverse Reaction (Verified 04/03/25 12:15) Dizziness/Lightheade Weak, confused, anxiety clavulanic acid (From Augmentin) Adverse Reaction (Verified 04/03/25 12:15) Agitation codeine Adverse Reaction (Verified 04/03/25 12:15) GI upset doxycycline Adverse Reaction (Verified 04/03/25 12:15) Other (See Comment) tears up my stomach metronidazole (From Flagyl) Adverse Reaction (Verified 04/03/25 12:15) Agitation Penicillins Adverse Reaction (Verified 04/03/25 12:15) Other (See Comment) tears up my stomach Sulfa (Sulfonamide Antibiotics) Adverse Reaction (Verified 04/03/25 12:15) anxious Active Medications Generic Name Dose Route Start Last Admin Trade Name Freq PRN Reason Stop Dose Admin Iohexol 100 ml 04/03/25 14:45 04/03/25 14:45 Omnipaque 350 Mg/Ml 100 Ml Btl IJ 05/03/25 23:59 100 ml DIRECTED AMELIA Administration Sodium Chloride 50 ml 04/03/25 14:45 04/03/25 14:44 Normal Saline - Diluent 50 Ml Vial IJ 50 ml .FOR DI USE AMELIA Administration IV IV Catheter Type [Right Peripheral IV Antecubital] IV Catheter Gauge [Right 18 Antecubital] Diagnostics 04/03/25 04/03/25 04/03/25 Range/Units 15:21 13:43 13:18 WBC (4.4-10.8) 10^3/uL RBC (3.93-5.22) 10^6/uL Hgb (11.2-15.7) g/dL Hct (36.0-46.0) % MCV (80-95) fL MCH (27.0-33.0) pg MCHC (32.0-36.0) % RDW (11.7-14.6) % Plt Count (130-400) 10^3/uL MPV (8.0-11.0) fL Immature Gran % % Neutrophils % % Lymphocytes % % Monocytes % % Eosinophils % % Basophils % % Nucleated RBC % (0.0-0.3) % Absolute Neutrophils (1.2-6.7) 10^3/uL Absolute Lymphocytes (1.2-3.4) 10^3/uL Absolute Monocytes (0.1-0.8) 10^3/uL Absolute Eosinophils (0.0-0.7) 10^3/uL Absolute Basophils (0.0-0.2) 10^3/uL RBC Morphology Sodium (136-145) mmol/L Potassium (3.5-5.1) mmol/L Chloride (98-107) mmol/L Carbon Dioxide (21.0-32.0) mmol/L Anion Gap (3-11) mmol/L BUN (7-18) mg/dL Creatinine (0.55-1.02) mg/dL Est GFR (CKD-EPI 2020) (mL/min/1.73m2) Glucose (74-106) mg/dL Calcium (8.5-10.1) mg/dL Magnesium (1.8-2.4) mg/dL Total Bilirubin (0.2-1.0) mg/dL AST (15-37) U/L ALT (14-59) U/L Alkaline Phosphatase (46-116) U/L Troponin I Pending 6 (<or=51) ng/L Total Protein (6.4-8.2) g/dL Albumin (3.4-5.0) g/dL Lipase (<78) U/L Urine Color Yellow (Yellow) Urine Clarity Clear (Clear) Urine pH 5.5 (5-8) Ur Specific [place] <= 1.005 (1.005-1.025) Urine Protein Negative (Neg-Trace) mg/dL Urine Ketones Negative (Negative) mg/dL Urine Blood Negative (Negative) Urine Nitrite Negative (Negative) Urine Bilirubin Negative (Negative) Urine Urobilinogen 0.2 (Up to 0.2) mg/dL Ur Leukocyte Esterase Negative (Negative) Urine Glucose Negative (Negative) mg/dL 04/03/25 Range/Units 12:38 WBC 4.37 L (4.4-10.8) 10^3/uL RBC 4.24 (3.93-5.22) 10^6/uL Hgb 13.5 (11.2-15.7) g/dL Hct 40.6 (36.0-46.0) % MCV 96 H (80-95) fL MCH 31.8 (27.0-33.0) pg MCHC 33.3 (32.0-36.0) % RDW 12.7 (11.7-14.6) % Plt Count 125 L (130-400) 10^3/uL MPV 10.9 (8.0-11.0) fL Immature Gran % 6.6 % Neutrophils % 45.5 % Lymphocytes % 29.5 % Monocytes % 14.0 % Eosinophils % 3.7 % Basophils % 0.7 % Nucleated RBC % 0.0 (0.0-0.3) % Absolute Neutrophils 1.99 (1.2-6.7) 10^3/uL Absolute Lymphocytes 1.29 (1.2-3.4) 10^3/uL Absolute Monocytes 0.61 (0.1-0.8) 10^3/uL Absolute Eosinophils 0.16 (0.0-0.7) 10^3/uL Absolute Basophils 0.03 (0.0-0.2) 10^3/uL RBC Morphology Normal Sodium 135 L (136-145) mmol/L Potassium 4.3 (3.5-5.1) mmol/L Chloride 99 (98-107) mmol/L Carbon Dioxide 26.0 (21.0-32.0) mmol/L Anion Gap 10.0 (3-11) mmol/L BUN 6 L (7-18) mg/dL Creatinine 0.7 (0.55-1.02) mg/dL Est GFR (CKD-EPI 2020) 94.15 (mL/min/1.73m2) Glucose 104 (74-106) mg/dL Calcium 8.6 (8.5-10.1) mg/dL Magnesium 1.7 L (1.8-2.4) mg/dL Total Bilirubin 0.2 (0.2-1.0) mg/dL AST 18 (15-37) U/L ALT 22 (14-59) U/L Alkaline Phosphatase 65 (46-116) U/L Troponin I 6 (<or=51) ng/L Total Protein 7.6 (6.4-8.2) g/dL Albumin 3.8 (3.4-5.0) g/dL Lipase 37 (<78) U/L Urine Color (Yellow) Urine Clarity (Clear) Urine pH (5-8) Ur Specific [place] (1.005-1.025) Urine Protein (Neg-Trace) mg/dL Urine Ketones (Negative) mg/dL Urine Blood (Negative) Urine Nitrite (Negative) Urine Bilirubin (Negative) Urine Urobilinogen (Up to 0.2) mg/dL Ur Leukocyte Esterase (Negative) Urine Glucose (Negative) mg/dL Intake and Output - 24 Hour Total 04/03/25 11:58 thru 04/03/25 14:00 Intake Total 1000 Balance 1000 Weight 74.389 kg Intake: IV 1000 Falls Risk Assessment History of Falls No History 04/03/25 12:14 Contributing Factors No Factors 04/03/25 12:14 Ambulatory Aids Independent 04/03/25 12:14 Tubes/Lines None 04/03/25 12:14 Gait Evaluation W/any additional score 04/03/25 12:14 Cognition No cognitive impairment 04/03/25 12:14 Fall Total Score 20 04/03/25 12:14 Level of Risk Standard/Low Risk 04/03/25 12:14 Problems (Last Reviewed 04/03/25 @ 12:50 by Dominga Rubalcava MD) Failure of outpatient treatment (Acute) Acute diverticulitis (Acute) v v v v v v v v v Sending and/or Receiving Nurses: Please use comment section below to note any information pertinent to the patient hand-off not included above. Information / Comments: Report received from:[facility]
[2025-04-03] MEDS: HYDROmorphone 2 MG/ML SYR 1 MG IVP ×3 (17:10→23:59)
[2025-04-03] MEDS: metroNIDAZOLE 500 MG/100 ML BAG 100 MG IVPB (17:10)
[2025-04-03 17:59] LABS: Troponin I 7 ng/L (<or=51)
--- NOTE | 2025-04-03 18:16 | HPE_ITS ---
Date of service: 04/03/25 Time of Service: 17:00 Assessment and Plan Assessment and plan (1) Acute diverticulitis: Status: Acute Assessment and plan: Acute Diverticulitis ? Failed Outpatient Treatment * Patient with known history of diverticulosis presents with persistent abdominal pain, nausea, bloating after 5.5 days of outpatient antibiotics (Bactrim and Flagyl). * CT confirms ongoing diverticulitis with no perforation or abscess. * Surgical team recommends inpatient management; they will follow. * Admit to medical floor * NPO except ice chips * Start IV antibiotics (tailored due to multiple allergies ertapenem is the best option 1 gm q 24h - her pcn allergy is not anaphylaxis ? ID consult if needed) * Monitor abdominal exam closely * Vitals q4h, strict I/Os * Pain and nausea management with IV meds PRN ondansetron, ketorolac, hydromorphone * Hold PO medications that are not essential or cause GI irritation SCDs possible surgery - hold anticoags. (2) Failure of outpatient treatment: Status: Acute Assessment and plan: See above (3) Bipolar I disorder: Status: Chronic Assessment and plan: * Patient on multiple psychiatric medications: sertraline, lamotrigine, Rexulti, trazodone * Appears stable from psychiatric standpoint; alert, oriented, cooperative * Continue home psych meds * Monitor for mood changes during admission (4) Alcohol use disorder: Status: Chronic Assessment and plan: Patient reports last drink 03/31 - admits to two beers everyday denies every having withdrawal symptoms, or DT's. (5) Cramer's esophagus: Status: Chronic Assessment and plan: Hold oral esomeprazole temporarily, Pantoprazole 40 mg IV while NPO Resume esomeprazole PO when patient tolerates oral intake. Monitor for reflux symptoms during hospitalization (6) Hypertension: Status: Chronic Assessment and plan: * Mildly elevated BP (161/83) on presentation * On amlodipine at home, which is being continued * Continue home amlodipine * Monitor BP Q 4h * Reassess antihypertensive regimen once acute issue stabilizes History of Present Illness Narrative: The patient, a 70 year old female, was recently diagnosed with acute diverticulitis and had been on Bactrim and Flagyl for approximately 5.5 days. Despite this, she reports persistent abdominal pain, bloating, and nausea, prompting surgical follow-up, which redirected her to the ED for re-evaluation. * Symptoms: Ongoing diffuse abdominal pain, nausea, bloating, mild constipation, and dizziness today. * No blood in stool, no urinary complaints, no headache, no extremity numbness/weakness. * Functional Status: She can eat but remains symptomatic; had a small bowel movement today. ED COURSE / MEDICAL DECISION MAKING: * Exam Findings: * Abdomen: Soft, diffusely tender, no rebound or guarding * Neurologic: Normal, NIH Stroke Scale score = 0 * Vitals: BP 161/83, HR 74, RR 20, SpO2 95%, Temp 36.6?C, Pain Score = 7/10 * Imaging: CT abdomen/pelvis shows persistent diverticulitis, no perforation or abscess * Plan: * Admission to medical floor for IV antibiotics * Monitoring for potential surgical intervention (bowel resection) if no improvement * NPO except ice chips Medications: * Notable meds * Psychotropic: sertraline, trazodone, lamotrigine, Rexulti * GI meds: esomeprazole, ondansetron PRN * Cardiovascular: amlodipine * Migraine: rizatriptan PRN (hold) Allergies: * Severe and complex antibiotic sensitivities including: * Metronidazole, sulfa, ciprofloxacin, penicillins, amoxicillin, azithromycin, clavulanic acid * Reactions: agitation, dizziness, double vision, hearing loss, GI upset Chronic Conditions: * GI: Diverticulosis/diverticulitis, Cramer?s esophagus, GERD, colon stricture * Mental Health: Bipolar I disorder, history of alcohol use disorder * Neuro: Migraine, multiple cranial nerve palsies, TIA (05/2024) * Cardio: Hypertension, hyperlipidemia * Other: Glaucoma, DJD lumbar spine, diabetes, hiatal hernia Social/Functional History: * Lives alone, no car, at risk of housing instability * No current alcohol or drug use * Former smoker (quit in 1977) Admitted to the medical floor for further testing and treatment. Surgery consulted. Patient in agreement with plan of care. Patient is a full code. Review of Systems Narrative: Constitutional: Positive for weakness, dizziness. Denies fever or chills. HEENT: Denies headache, vision changes, or hearing loss. Cardiovascular: Denies chest pain, palpitations, or edema. Respiratory: Denies shortness of breath, cough, or wheezing. Gastrointestinal: Positive for abdominal pain, bloating, nausea, constipation (though had small bowel movement today). Denies vomiting, diarrhea, or blood in stool. Genitourinary: Denies dysuria or urinary frequency. Musculoskeletal: Denies joint pain or swelling. No extremity weakness. Neurological: Positive for dizziness earlier today. Denies numbness, tingling, or focal weakness. Psychiatric: Denies suicidal ideation or hallucinations; known history of b ipolar disorder. Skin: Denies rashes or lesions. Endocrine: Denies polydipsia, polyuria, or heat/cold intolerance. Hematologic/Lymphatic: Denies easy bruising or bleeding. Allergic/Immunologic: History of multiple drug allergies (see allergy list), no acute allergic symptoms reported today. [facility] All Active Problems (Updated 04/03/25 @ 16:07 by Dominga Rubalcava MD) Failure of outpatient treatment (Acute) Acute diverticulitis (Acute) Bipolar I disorder (Chronic) [facility] Alcohol use disorder (Chronic) Diverticular stricture (Chronic) Followed by [facility] Colon stricture (Chronic) Followed by [facility] Cramer's esophagus (Chronic) On 2009 EGD, not on 2012 EGD, on 2023 EGD Gastroesophageal reflux disease with esophagitis (Chronic) Diverticulosis of colon (Chronic) Chronic diarrhea (Chronic) Hypertension (Chronic) Hyperlipidemia (Chronic) Hiatal hernia (Chronic) Migraine (Chronic) 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) Glaucoma (Chronic) Allergic rhinitis (Chronic) Medical History TIA (transient ischemic attack) (~05/2024) TMJ (temporomandibular joint disorder) Diverticulitis of sigmoid colon Multiple episodes, seeing [facility] Diabetes mellitus Surgical History S/P cholecystectomy S/P BSO (bilateral salpingo-oophorectomy) (07/03/15) Status post foot surgery History of total vaginal hysterectomy (TVH) (07/03/15) With cystoscopy and rectocele repair History of esophagogastroduodenoscopy History of bilateral ligation of fallopian tubes Family History Mother Stroke Lung cancer Hypertension Father Heart disease Hyperlipidemia Hypertension Brother Heart disease DOUBLE BYPASS AGE 48 (NON SMOKER) Hyperlipidemia Son Depression Daughter Depression Maternal Grandfather Lung cancer Maternal Grandmother Heart disease Myocardial infarction Paternal Grandfather No problems noted. Paternal Grandmother Diabetes Social History Smoking/Tobacco Use Status: Former Tobacco Use Quit Date: 09/05/77 Smoking risk assessment performed?: Yes Alcohol Intake: never Drug use: Never Substance use type: does not use Housing: house Do you feel safe at home: Yes Do you feel safe in your relationship?: Yes Additional Social history: lives alone / no car Meds Allergies and Home Medications Allergies Allergy/AdvReac Type Severity Reaction Status Date / Time latex AdvReac Severe Skin Rash Verified 04/03/25 12:15 amoxicillin (From Augmentin) AdvReac Agitation Verified 04/03/25 12:15 azithromycin (From Zithromax) AdvReac headache, Verified 04/03/25 12:15 hearing loss,double vision, DAVILA ciprofloxacin (From Cipro) AdvReac Dizziness/L Verified 04/03/25 12:15 ightheade clavulanic acid (From AdvReac Agitation Verified 04/03/25 12:15 Augmentin) codeine AdvReac GI upset Verified 04/03/25 12:15 doxycycline AdvReac Other (See Verified 04/03/25 12:15 Comment) metronidazole (From Flagyl) AdvReac Agitation Verified 04/03/25 12:15 Penicillins AdvReac Other (See Verified 04/03/25 12:15 Comment) Sulfa (Sulfonamide AdvReac anxious Verified 04/03/25 12:15 Antibiotics) Home Medications ?Medication ?Instructions ?Recorded ?Confirmed ?Type sertraline 100 mg tablet 100 mg PO DAILY 09/30/23 History lamotrigine 200 mg tablet 200 mg PO QHS 10/21/2304/03 History trazodone 100 mg tablet 250 mg PO QHS 09/07/2404/03 History brexpiprazole 3 mg tablet (Rexulti) 3 mg PO DAILY 05/3004/03/25 History aspirin 81 mg chewable tablet 81 mg PO DAILY #90 tabs 09/25/24 04/03/25 Rx (Children's Aspirin) Held on 04/03/25. Instructions: Pt Stopped/Never Started atorvastatin 10 mg tablet (Lipitor) 10 mg PO DAILY #90 tabs 09/25/24 04/03/25 Rx Held on 04/03/25. Instructions: Changed by Provider amlodipine 5 mg tablet 5 mg PO DAILY #90 tabs 11/0604/03/25 Rx esomeprazole magnesium 40 mg 40 mg PO DAILY #90 caps 0 12/20/24 04/03/25 Rx capsule,delayed release (Nexium) rizatriptan 10 mg disintegrating 10 mg translingual ON CE #14 tabs 03/04/25 04/03/25 Rx tablet ondansetron HCl 4 mg tablet See Rx Instructions .Route 03/25/25 04/03/25 Rx .COMPLEX #20 tabs Exam Narrative Exam Narrative: General: Non-toxic appearance. No respiratory distress. Appears comfortable. HEENT: Normocephalic, atraumatic. Pupils equal, round, reactive to light Extraocular movements intact. Anicteric sclera. No conjunctival injection. Moist oral mucosa. Cardiovascular: Regular rate and rhythm. S1 and S2 normal. No murmurs, rubs, or gallops. Respiratory: Lungs clear to auscultation bilaterally. Good air entry. No wheezes, rales, rhonchi, or retractions. Abdomen: Soft, diffusely tender. Non-distended. Normal bowel sounds. No rebound, guarding, or peritoneal signs. No costovertebral angle tenderness Musculoskeletal: Full range of motion in all extremities. No tenderness to palpation. No clubbing, cyanosis, or edema. Neurological: Alert and oriented. Cranial nerves II?XII intact. Normal speech. Strength and sensation intact in all extremities. Reflexes: 2+ biceps tendon. Normal coordination ([id number], rapid alternating movements). No pronator drift. Psychiatric: Alert, oriented. Appropriate affect and behavior. Skin: Warm, dry. No petechiae or lesions. Results Labs 04/03/25 12:38 04/03/25 12:38 Labs: Laboratory Results - last 24 hr 04/03/25 04/03/25 04/03/25 12:38 13:18 13:43 WBC 4.37 L RBC 4.24 Hgb 13.5 Hct 40.6 MCV 96 H MCH 31.8 MCHC 33.3 RDW 12.7 Plt Count 125 L MPV 10.9 Immature Gran % 6.6 Neutrophils % 45.5 Lymphocytes % 29.5 Monocytes % 14.0 Eosinophils % 3.7 Basophils % 0.7 Nucleated RBC % 0.0 Absolute Neutrophils 1.99 Absolute Lymphocytes 1.29 Absolute Monocytes 0.61 Absolute Eosinophils 0.16 Absolute Basophils 0.03 RBC Morphology Normal Sodium 135 L Potassium 4.3 Chloride 99 Carbon Dioxide 26.0 Anion Gap 10.0 BUN 6 L Creatinine 0.7 Est GFR (CKD-EPI 2020) 94.15 Glucose 104 Calcium 8.6 Magnesium 1.7 L Total Bilirubin 0.2 AST 18 ALT 22 Alkaline Phosphatase 65 Troponin I 6 6 Total Protein 7.6 Albumin 3.8 Lipase 37 Urine Color Yellow Urine Clarity Clear Urine pH 5.5 Ur Specific [place] <= 1.005 Urine Protein Negative Urine Ketones Negative Urine Blood Negative Urine Nitrite Negative Urine Bilirubin Negative Urine Urobilinogen 0.2 Ur Leukocyte Esterase Negative Urine Glucose Negative 04/03/25 17:35 WBC RBC Hgb Hct MCV MCH MCHC RDW Plt Count MPV Immature Gran % Neutrophils % Lymphocytes % Monocytes % Eosinophils % Basophils % Nucleated RBC % Absolute Neutrophils Absolute Lymphocytes Absolute Monocytes Absolute Eosinophils Absolute Basophils RBC Morphology Sodium Potassium Chloride Carbon Dioxide Anion Gap BUN Creatinine Est GFR (CKD-EPI 2020) Glucose Calcium Magnesium Total Bilirubin AST ALT Alkaline Phosphatase Troponin I 7 Total Protein Albumin Lipase Urine Color Urine Clarity Urine pH Ur Specific [place] Urine Protein Urine Ketones Urine Blood Urine Nitrite Urine Bilirubin Urine Urobilinogen Ur Leukocyte Esterase Urine Glucose Last Vital Signs Temp 36.1 C L 04/03/25 18:07 Pulse 87 04/03/25 18:07 Resp 17 04/03/25 18:07 BP 147/67 H 04/03/25 18:07 Pulse Ox 94 04/03/25 18:07 PAWSS Have you Been Recently Intoxicated or Drunk Within the Last 30 days?: No Have you Ever Experienced Previous Episodes of Alcohol Withdrawal?: No Have you ever Experienced Withdrawal Seizures?: No Have you ever Experienced Delirium Tremens(DT)s?: No Have you ever undergone Alcohol Rehabilitation Treatment (i.e, inpt ot outpatient treatment programs)?: No Have you ever Experienced Blackouts?: No Have you ever Combined Alcohol with other Downers within the last 90 days?: No Have you ever Combined Alcohol with any other Substance of Abuse during the last 90 days?: No Positive Blood Alcohol level on Presentation? [PCS.BAL]: No Evidence of Increased Autonomic Activity (i.e. HR>120, tremor, sweating, agitation, nausea)?: No Result: 0 Time Spent Time spent with Patient: 40-54 minutes Time was spent: preparing to see the patient(eg.review tests), obtaining and/or reviewing separately [facility], ordering medications,tests, procedures, referring, communicating with other health director of medicare, indepentently interpreting results, counseling the patient and care coordination
[2025-04-03] MEDS: Normal Saline 1,000 ML 125 ML IV (18:40)
[2025-04-03] MEDS: Pantoprazole 40 MG VIAL IVP (18:40)
[2025-04-03] MEDS: Normal Saline Flush 10 ML SYR IVP ×2 (19:29→21:43)
[2025-04-03] MEDS: traZODone 100 MG TAB 250 MG PO (19:29)
[2025-04-03] MEDS: lamoTRIgine 100 MG TAB 200 MG PO (19:29)
[2025-04-03] MEDS: Ketorolac 15 MG/ML VIAL IVP (21:44)
--- NOTE | 2025-04-03 22:04 | NUR.NOTE ---
Nursing Note: Pt endorses feelings of increased sadness. She states that it is a sudden feeling of sadness and she is not sure why. She believes it may be related to her partner living in [place] but implies it has never been an issue before. Advised pt that I would check on her frequently and for her to inform staff if the feelings persist or get worse.
--- NOTE | 2025-04-03 22:09 | NUR.NOTE ---
Nursing Note: Pt had requested pain medications for her abdominal pain. while staff was out of room she took her own supply of excederin. Advised pt that taking her own meds was against policy and she gave this nurse her OTC meds and blister pack meds to be put in the pharmacy.
[2025-04-04] MEDS: Normal Saline 1,000 ML 125 ML IV ×3 (04:19→22:01)
[2025-04-04 04:27] VITALS: BP 110/59; PULSE 58; RESP 16; TEMP 36.4; O2SAT 93
[2025-04-04] MEDS: Ketorolac 15 MG/ML VIAL IVP ×3 (04:42→18:34)
[2025-04-04] MEDS: Ondansetron 4 MG/2 ML VIAL IVP ×2 (06:21→11:06)
[2025-04-04] MEDS: Acetaminophen 325 MG TAB 650 MG PO ×2 (06:28→12:29)
[2025-04-04 07:18] LABS: Abs Immature Grans 0.22 10^3/uL (0.0-0.06); HCT 39.7 % (36.0-46.0); HGB 13.2 g/dL (11.2-15.7); Immature Grans % 4.4 %; MCH 32.4 pg (27.0-33.0); MCHC 33.2 % (32.0-36.0); MCV 98 fL (80-95); RBC 4.07 10^6/uL (3.93-5.22); RDW 13.2 % (11.7-14.6); RDW-SD 47.3 fL; WBC 4.96 10^3/uL (4.4-10.8)
[2025-04-04 07:37] VITALS: BP 137/62; PULSE 57; RESP 20; TEMP 36.8; O2SAT 94
[2025-04-04 07:43] LABS: RBC Morphology Normal
[2025-04-04] MEDS: amLODIPine 5 MG TAB PO (08:18)
[2025-04-04] MEDS: Sertraline 100 MG TAB PO (08:18)
[2025-04-04] MEDS: Pantoprazole 40 MG VIAL IVP (08:18)
--- NOTE | 2025-04-04 08:59 | INITIAL_ITS ---
Date of service: 04/04/25 Time of Service: 08:59 Care Management Initial Assmt Initial Assessment Reason for Hospitalization: Diverticulitis Functional Status/Living Situation Patient Presentation: Benita was awake and lying in bed when CM met with her. She is pleasant and easily engages in conversation. Benita lives alone in [place], she is active and independent at baseline and has supportive family and friends. She is interested in [facility], and would like a referral to sent to the [facility]. At this time, Benita requires close monitor and treatment with IV meropenem for diverticulitis (which failed outpatient treatment/55 days on Bactrim and Flagyl. CM will continue to follow and support discharge planning needs. Town of Residence: [place] Resides with: Alone Significant Other/Family: Local Natural Supports: Supportive family and friends Employment Status: Retired Instrumental Activities of Daily Living (ADLs): Independent Medications Medication Management: No Issues/Barriers identified Physical Functioning/Mobility Assistive Device: None Advance Directives Advance Directives: Do you have an Advance Directive: N , 14:51 AD On File at [facility]: N 03/27/24, 14:51 Date Asked 04/03/25 04/03/25, 12:23 AD Date Reviewed COLST On File at [facility] COLST Date Scanned Code Status Resuscitation Status Full Code Insurance Coverage/Financial Issues Insurance: /[facility] - [id number] Care Team Visit Care Team Role Provider Type Radha Costa APRN MD [facility] STAFF PHYSICIAN Cathie Strange NP Primary Care Provider NURSE PRACTITIONER Alyx Hazel MD Other Providers [facility] STAFF PHYSICIAN Dominga Rubalcava MD Emergency Provider [facility] STAFF PHYSICIAN Dennis Ha Admit Provider [facility] STAFF PHYSICIAN Attending Provider Discharge Potential Discharge Needs: PCP F/U Appt Anticipated Barriers to Discharge: None Identified Patient/Family Education Needs: Review discharge instructions, discuss Ask Me Three Transportation: Private vehicle Plan: Anticipate, Benita will discharge home via private vehicle when medically cleared for discharge. Pt will follow up with community providers and discharge plan of care as directed. No new services are anticipated at this time. CM will place a referral to [facility] at pts request. Social Determinants of Health Screening Social Determinants of health last assessed in clinic: 04/04/25 Will the Patient Participate in the Screening?: Yes Do you worry about having a steady place to live?: no Problems where you live: no known problems In the past 12 months, have you had to go without electric, gas, oil or water in your home?: no 1. Within the past 12 months, we worried whether our food would run out before we got money to buy more.: Never true 2. Within the past 12 months, the food we bought just didn't last and we didn't have money to get more.: Never true Has lack of transportation kept you from medical appointments or from doing things needed for daily living?: no Has anyone in your life made you feel unsafe or unsupported?: no How hard is it for you to pay for the very basics like food, housing, medical care, and heating? Would you say it is:: Not hard at all Do you want help finding or keeping work or a job?: I do not need or want help If for any reason you need help with day-to-day activities such as bathing, preparing meals, shopping, managing finances, etc., do you get the help you need?: I don?t need any help How often do you feel lonely or isolated from those around you?: Never Do you speak a language other than Y[place] at home?: No PFSH All Active Problems (Updated 04/03/25 @ 16:07 by Dominga Rubalcava MD) Failure of outpatient treatment (Acute) Acute diverticulitis (Acute) Bipolar I disorder (Chronic) [facility] Alcohol use disorder (Chronic) Diverticular stricture (Chronic) Followed by [facility] Colon stricture (Chronic) Followed by 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 Diabetes mellitus Surgical History S/P cholecystectomy S/P BSO (bilateral salpingo-oophorectomy) (07/03/15) Status post foot surgery History of total vaginal hysterectomy (TVH) (07/03/15) With cystoscopy and rectocele repair History of esophagogastroduodenoscopy History of bilateral ligation of fallopian tubes Family History Mother Stroke Lung cancer Hypertension Father Heart disease Hyperlipidemia Hypertension Brother Heart disease DOUBLE BYPASS AGE 48 (NON SMOKER) Hyperlipidemia Son Depression Daughter Depression Maternal Grandfather Lung cancer Maternal Grandmother Heart disease Myocardial infarction Paternal Grandfather No problems noted. Paternal Grandmother Diabetes Social History Smoking/Tobacco Use Status: Former Tobacco Use Quit Date: 09/05/77 Smoking risk assessment performed?: Yes Alcohol Intake: never Drug use: Never Substance use type: does not use Housing: house Do you feel safe at home: Yes Do you feel safe in your relationship?: Yes Additional Social history: lives alone / no car
--- NOTE | 2025-04-04 09:24 | PGE_ITS ---
Date of Service Date of service: 04/04/25 Time of Service: 09:24 Assessment and Plan Assessment and plan (1) Acute diverticulitis: Status: Acute Assessment and plan: Acute Diverticulitis ? Failed Outpatient Treatment. Confirmed by CT without abscess or perforation * Patient with known history of diverticulosis presents with persistent abdominal pain, nausea, bloating after 55 days of outpatient antibiotics (Bactrim and Flagyl). * CT confirms ongoing diverticulitis with no perforation or abscess. * Surgical team recommends inpatient management * Resume NPO except ice chips * Continue IV antibiotics ertapenem changed to meropenem for Enterococcus?species coverage since metronidazole was stopped-her pcn allergy is not anaphylaxis ? * consider ID consult if needed * Ongoing pain and nausea management with IV meds PRN ondansetron, ketorolac, hydromorphone * Hold non-essential PO medications or cause GI irritation SCDs possible surgery - hold anticoags. surgical consult ongoing Trial of clear liquid failed : increased pain and nausea medicine Ongoing IVF while on bowel rest- strict I&O (2) Failure of outpatient treatment: Status: Acute Assessment and plan: See above (3) Bipolar I disorder: Status: Chronic Assessment and plan: No exacerbation Continue home dose sertraline, lamotrigine, Rexulti, trazodone Continue to monitor (4) Alcohol use disorder: Status: Chronic Assessment and plan: Reported last drink on 03/31/2025 and daily drinking of 2 beers daily without any experience previous withdrawal symptoms, or DT's. Will continue to monitor Alcohol assessment Q4 H (5) Cramer's esophagus: Status: Chronic Assessment and plan: Continue IV PPI transition to oral PPI when able (6) Hypertension: Status: Chronic Assessment and plan: Continue home dose amlodipine Continue to monitor and adjust as needed Discussed with Dr. Raya Subjective Subjective Patient reports: no new complaints, pain is less, voiding w/o difficulty, bowel movement and nausea; denies tolerating liquids well, diarrhea, blood in stool, vomiting, shortness of breath or fever Exam Narrative Exam Narrative: No acute distress, alert. Focal neurological deficit, clear lung unlabored breathing, S1-S2 regular no murmur, abdomen round nondistended soft tender to bilateral lower quadrants, no CVA tenderness moves all 4 extremities Objective Last Vital Signs Temp 36.8 C 04/04/25 07:37 Pulse 57 L 04/04/25 07:37 Resp 20 04/04/25 07:37 BP 137/62 04/04/25 07:37 Pulse Ox 94 04/04/25 07:37 Laboratory Results - last 24 hr 04/03/25 04/03/25 04/03/25 12:38 13:18 13:43 WBC 4.37 L RBC 4.24 Hgb 13.5 Hct 40.6 MCV 96 H MCH 31.8 MCHC 33.3 RDW 12.7 Plt Count 125 L MPV 10.9 Immature Gran % 6.6 Neutrophils % 45.5 Lymphocytes % 29.5 Monocytes % 14.0 Eosinophils % 3.7 Basophils % 0.7 Nucleated RBC % 0.0 Absolute Neutrophils 1.99 Absolute Lymphocytes 1.29 Absolute Monocytes 0.61 Absolute Eosinophils 0.16 Absolute Basophils 0.03 RBC Morphology Normal Sodium 135 L Potassium 4.3 Chloride 99 Carbon Dioxide 26.0 Anion Gap 10.0 BUN 6 L Creatinine 0.7 Est GFR (CKD-EPI 2020) 94.15 Glucose 104 Calcium 8.6 Magnesium 1.7 L Total Bilirubin 0.2 AST 18 ALT 22 Alkaline Phosphatase 65 Troponin I 6 6 Total Protein 7.6 Albumin 3.8 Lipase 37 Urine Color Yellow Urine Clarity Clear Urine pH 5.5 Ur Specific Snyder <= 1.005 Urine Protein Negative Urine Ketones Negative Urine Blood Negative Urine Nitrite Negative Urine Bilirubin Negative Urine Urobilinogen 0.2 Ur Leukocyte Esterase Negative Urine Glucose Negative 04/03/25 04/04/25 17:35 07:06 WBC 4.96 RBC 4.07 Hgb 13.2 Hct 39.7 MCV 98 H MCH 32.4 MCHC 33.2 RDW 13.2 Plt Count MPV Immature Gran % 4.4 Neutrophils % 34.4 Lymphocytes % 40.5 Monocytes % 16.5 Eosinophils % 3.6 Basophils % 0.6 Nucleated RBC % 0.0 Absolute Neutrophils 1.70 Absolute Lymphocytes 2.01 Absolute Monocytes 0.82 H Absolute Eosinophils 0.18 Absolute Basophils 0.03 RBC Morphology Normal Sodium Potassium Chloride Carbon Dioxide Anion Gap BUN Creatinine Est GFR (CKD-EPI 2020) Glucose Calcium Magnesium Total Bilirubin AST ALT Alkaline Phosphatase Troponin I 7 Total Protein Albumin Lipase Urine Color Urine Clarity Urine pH Ur Specific Snyder Urine Protein Urine Ketones Urine Blood Urine Nitrite Urine Bilirubin Urine Urobilinogen Ur Leukocyte Esterase Urine Glucose PAWSS Have you Been Recently Intoxicated or Drunk Within the Last 30 days?: No Have you Ever Experienced Previous Episodes of Alcohol Withdrawal?: No Have you ever Experienced Withdrawal Seizures?: No Have you ever Experienced Delirium Tremens(DT)s?: No Have you ever undergone Alcohol Rehabilitation Treatment (i.e, inpt ot outpatient treatment programs)?: No Have you ever Experienced Blackouts?: No Have you ever Combined Alcohol with other Downers within the last 90 days?: No Have you ever Combined Alcohol with any other Substance of Abuse during the last 90 days?: No Positive Blood Alcohol level on Presentation? [PCS.BAL]: No Evidence of Increased Autonomic Activity (i.e. HR>120, tremor, sweating, agitation, nausea)?: No Result: 0 Time Spent with Patient Time Spent with Patient: >50 minutes Time was spent: preparing to see the patient(eg.review tests), obtaining and/or reviewing separately otained hiistory, ordering medications,tests, procedures, referring, communicating with other health career counselor, indepentently interpreting results, counseling the patient and care coordination
[2025-04-04 10:35] LABS: Anion Gap 7.9 mmol/L (3-11); BUN 8 mg/dL (7-18); CO2 26.1 mmol/L (21.0-32.0); Calcium 8.2 mg/dL (8.5-10.1); Chloride 108 mmol/L (98-107); Estimated GFR 80.21 (mL/min/1.73m2); Glucose 87 mg/dL (74-106); Magnesium 1.8 mg/dL (1.8-2.4); Potassium 4.1 mmol/L (3.5-5.1); Sodium 142 mmol/L (136-145)
[2025-04-04] MEDS: Normal Saline Flush 10 ML SYR IVP ×4 (11:07→18:36)
[2025-04-04 11:56] VITALS: BP 136/68; PULSE 65; RESP 18; TEMP 36.8; O2SAT 93
[2025-04-04 15:54] VITALS: BP 140/63; PULSE 58; RESP 20; TEMP 36.6; O2SAT 93
--- NOTE | 2025-04-04 17:54 | PGE_ITS ---
Date of Service Date of service: 04/04/25 Time of Service: 17:54 Assessment and Plan Assessment and plan (1) Acute diverticulitis: Status: Acute Assessment and plan: I reviewed the imaging, and at least by the CT scan, this seems like relatively mild diverticulitis. It certainly no worse than the images obtained on March 27, and if anything I would say it is a little bit better. 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 In that regard, I wonder if some of her symptomatology is driven by that pathophysiology. Regardless, she is afebrile here, and has a normal white blood cell count, and seems to be tolerating a popsicle and some water just fine. In that regard, I do not see a strong indication for emergency surgery at this point. I think it is reasonable to continue the antibiotics for now, and slowly advance her diet to see how she does. Subjective Subjective Interval history since last seen: Benita tells me she is feeling better today than yesterday. She says she has less pain, and she is quite eager to have her diet advanced as she wants a [employer]. Exam GI Other: Her abdomen is soft, and not at all distended. She is not very tender. Objective Last Vital Signs Temp 97.9 F 04/04/25 15:54 Pulse 58 L 04/04/25 15:54 Resp 20 04/04/25 15:54 BP 140/63 04/04/25 15:54 Pulse Ox 93 04/04/25 15:54 Laboratory Results - last 24 hr 04/03/25 04/04/25 04/04/25 17:35 07:06 10:14 WBC 4.96 RBC 4.07 Hgb 13.2 Hct 39.7 MCV 98 H MCH 32.4 MCHC 33.2 RDW 13.2 Plt Count MPV Immature Gran % 4.4 Neutrophils % 34.4 Lymphocytes % 40.5 Monocytes % 16.5 Eosinophils % 3.6 Basophils % 0.6 Nucleated RBC % 0.0 Absolute Neutrophils 1.70 Absolute Lymphocytes 2.01 Absolute Monocytes 0.82 H Absolute Eosinophils 0.18 Absolute Basophils 0.03 RBC Morphology Normal Sodium 142 Potassium 4.1 Chloride 108 H Carbon Dioxide 26.1 Anion Gap 7.9 BUN 8 Creatinine 0.8 Est GFR (CKD-EPI 2020) 80.21 Glucose 87 Calcium 8.2 L Magnesium 1.8 Troponin I 7 PAWSS Have you Been Recently Intoxicated or Drunk Within the Last 30 days?: No Have you Ever Experienced Previous Episodes of Alcohol Withdrawal?: No Have you ever Experienced Withdrawal Seizures?: No Have you ever Experienced Delirium Tremens(DT)s?: No Have you ever undergone Alcohol Rehabilitation Treatment (i.e, inpt ot outpatient treatment programs)?: No Have you ever Experienced Blackouts?: No Have you ever Combined Alcohol with other Downers within the last 90 days?: No Have you ever Combined Alcohol with any other Substance of Abuse during the last 90 days?: No Positive Blood Alcohol level on Presentation? [PCS.BAL]: No Evidence of Increased Autonomic Activity (i.e. HR>120, tremor, sweating, agitation, nausea)?: No Result: 0 Time Spent with Patient Time Spent with Patient: 35-49 minutes Time was spent: preparing to see the patient(eg.review tests), indepentently interpreting results and counseling the patient
[2025-04-04 20:04] VITALS: BP 166/75; PULSE 62; RESP 18; TEMP 36.2; O2SAT 93
[2025-04-04] MEDS: lamoTRIgine 100 MG TAB 200 MG PO (20:27)
[2025-04-04] MEDS: traZODone 100 MG TAB 250 MG PO (20:27)
[2025-04-05] MEDS: Acetaminophen 325 MG TAB 650 MG PO ×3 (00:39→15:31)
[2025-04-05] MEDS: Ondansetron 4 MG/2 ML VIAL IVP ×3 (00:39→23:46)
[2025-04-05 01:49] VITALS: BP 152/77; PULSE 60; RESP 18; TEMP 36.3; O2SAT 94
[2025-04-05] MEDS: Ketorolac 15 MG/ML VIAL IVP ×4 (01:54→23:46)
[2025-04-05 07:01] LABS: Abs Immature Grans 0.21 10^3/uL (0.0-0.06); HCT 37.6 % (36.0-46.0); HGB 12.3 g/dL (11.2-15.7); Immature Grans % 5.0 %; MCH 32.1 pg (27.0-33.0); MCHC 32.7 % (32.0-36.0); MCV 98 fL (80-95); MPV 10.4 fL (8.0-11.0); Platelet Count 119 10^3/uL (130-400); RBC 3.83 10^6/uL (3.93-5.22); RDW 13.1 % (11.7-14.6); RDW-SD 46.6 fL; WBC 4.20 10^3/uL (4.4-10.8)
[2025-04-05] MEDS: Normal Saline 1,000 ML 125 ML IV (07:10)
[2025-04-05 07:20] LABS: Anion Gap 6.7 mmol/L (3-11); BUN 4 mg/dL (7-18); CO2 28.3 mmol/L (21.0-32.0); Calcium 8.9 mg/dL (8.5-10.1); Chloride 108 mmol/L (98-107); Estimated GFR 94.15 (mL/min/1.73m2); Glucose 91 mg/dL (74-106); Magnesium 1.7 mg/dL (1.8-2.4); Potassium 4.0 mmol/L (3.5-5.1); Sodium 143 mmol/L (136-145)
[2025-04-05 07:35] VITALS: BP 140/62; PULSE 64; RESP 17; TEMP 37; O2SAT 94
[2025-04-05] MEDS: Normal Saline Flush 10 ML SYR IVP ×5 (07:54→18:10)
--- NOTE | 2025-04-05 08:15 | PGE_ITS ---
Date of Service Date of service: 04/05/25 Time of Service: 08:15 Assessment and Plan Assessment and plan (1) Acute diverticulitis: Status: Acute Assessment and plan: Will restart clear liquids slowly She has started to have liquid stools last night She describes her pain is slightly better and she is hungry No fevers, chills or night sweats. Encouraged her to sit in the chair throughout the day and ambulation. Pt seen and examined. Reviewed Zahida LECHUGA note and I agree w assessment and plan. pt looks well today compared to admission day. She is calm, vitalsd and labs are within normal limits, and she has passed a bowel movement. She reports similar pain as admission but is visibly more comfortable and now able to tolerate po intake. No indication for urgent/emergent sigmoidectomy for diverticulitis. [place] to avoid colostomy in this patient, psych health and other comorbid conditions make colostomy unfavorable for her and it will be avoided as much as possible. advance to full liuqids as tolerated and consider reg diet tomorrow. continue meropenem while inpatient and will discuss outpt abx plan on discharge. she is willing to take ciprofloxacin which is listed as an allergy, she says it only upset her stomach and she is willing to take it. Alyx Hazel MD Subjective Subjective Interval history since last seen: Patient is eager to have clear liquids. She states that she was tolerating the clear liquids yesterday and she felt that the pudding she attempted to eat caused her some GI upset. She would like to try clear liquids again this morning. Exam Const General: cooperative, healthy appearing and comfortable Orientation: alert and oriented x3 Resp Effort & Inspection: normal respiratory effort, no audible wheezes and no cough GI Inspection: normal to inspection Palpation: soft, no guarding and tender in the LLQ and in the RLQ Objective Last Vital Signs Temp 37.0 C 04/05/25 07:35 Pulse 64 04/05/25 07:35 Resp 17 04/05/25 07:35 BP 140/62 04/05/25 07:35 Pulse Ox 94 04/05/25 07:35 Laboratory Results - last 24 hr 04/04/25 04/05/25 10:14 06:20 WBC 4.20 L RBC 3.83 L Hgb 12.3 Hct 37.6 MCV 98 H MCH 32.1 MCHC 32.7 RDW 13.1 Plt Count 119 L MPV 10.4 Immature Gran % 5.0 Neutrophils % 40.7 Lymphocytes % 29.3 Monocytes % 19.3 Eosinophils % 5.2 Basophils % 0.5 Nucleated RBC % 0.0 Absolute Neutrophils 1.71 Absolute Lymphocytes 1.23 Absolute Monocytes 0.81 H Absolute Eosinophils 0.22 Absolute Basophils 0.02 Sodium 142 143 Potassium 4.1 4.0 Chloride 108 H 108 H Carbon Dioxide 26.1 28.3 Anion Gap 7.9 6.7 BUN 8 4 L Creatinine 0.8 0.7 Est GFR (CKD-EPI 2020) 80.21 94.15 Glucose 87 91 Calcium 8.2 L 8.9 Magnesium 1.8 1.7 L Objective Narrative Objective Narrative: Awake, supine in bed, NAD eomi, MMM normal resp effort abdomen is soft, nondistended, improved exam from prior. equally tender in all quadrants consistent with mild acute tenderness. no rebound or guarding. no increased ttp in lower abdomen compared to upper PAWSS Have you Been Recently Intoxicated or Drunk Within the Last 30 days?: No Have you Ever Experienced Previous Episodes of Alcohol Withdrawal?: No Have you ever Experienced Withdrawal Seizures?: No Have you ever Experienced Delirium Tremens(DT)s?: No Have you ever undergone Alcohol Rehabilitation Treatment (i.e, inpt ot outpatient treatment programs)?: No Have you ever Experienced Blackouts?: No Have you ever Combined Alcohol with other Downers within the last 90 days?: No Have you ever Combined Alcohol with any other Substance of Abuse during the last 90 days?: No Positive Blood Alcohol level on Presentation? [PCS.BAL]: No Evidence of Increased Autonomic Activity (i.e. HR>120, tremor, sweating, agitation, nausea)?: No Result: 0 Time Spent with Patient Time Spent with Patient: <25 minutes Time was spent: preparing to see the patient(eg.review tests), obtaining and/or reviewing separately otained hiistory and counseling the patient
[2025-04-05] MEDS: HYDROmorphone 2 MG/ML SYR 1 MG IVP (08:42)
[2025-04-05] MEDS: Sertraline 100 MG TAB PO (08:42)
[2025-04-05] MEDS: amLODIPine 5 MG TAB PO (08:42)
[2025-04-05] MEDS: Pantoprazole 40 MG VIAL IVP (08:42)
[2025-04-05 11:24] VITALS: BP 145/66; PULSE 56; RESP 18; TEMP 36.6; O2SAT 93
--- NOTE | 2025-04-05 12:09 | PDOC.CMPRO ---
Date of service: 04/05/25 Time of Service: 12:09 Care Management Progress Note Progress Note Text Progress Note Text: Benita was awake and lying in bed when CM met with her. She is being monitored and treated for Diverticulitis, Surgical is following and surgical intervention is not warranted at this time. Current plan is to continue IV ABX, manage pain and advance diet as tolerated. She is eager to progress her diet and plans to try some soup. Pt denies concerns at this time. Benita reports that she is independent at baseline an is not interested in discharging with [facility] services. CM will follow. Discharge Potential Discharge Needs: PT Evaluation and PCP F/U Appt Anticipated Barriers to Discharge: None Identified Patient/Family Education Needs: Review discharge instructions, discuss Ask Me Three Transportation: Private vehicle Plan: Anticipate, Benita will discharge home via private vehicle when medically cleared for discharge. Pt will follow up with community providers and discharge plan of care as directed. No new services are anticipated at this time. CM placed a referral to [facility] at pts request. Social Determinants of Health Screening Social Determinants of health last assessed in clinic: 04/05/25 Will the Patient Participate in the Screening?: Yes Do you worry about having a steady place to live?: no Problems where you live: no known problems In the past 12 months, have you had to go without electric, gas, oil or water in your home?: no 1. Within the past 12 months, we worried whether our food would run out before we got money to buy more.: Never true 2. Within the past 12 months, the food we bought just didn't last and we didn't have money to get more.: Never true Has lack of transportation kept you from medical appointments or from doing things needed for daily living?: no Has anyone in your life made you feel unsafe or unsupported?: no How hard is it for you to pay for the very basics like food, housing, medical care, and heating? Would you say it is:: Not hard at all Do you want help finding or keeping work or a job?: I do not need or want help If for any reason you need help with day-to-day activities such as bathing, preparing meals, shopping, managing finances, etc., do you get the help you need?: I don?t need any help How often do you feel lonely or isolated from those around you?: Never Do you speak a language other than Hebrew at home?: No
--- NOTE | 2025-04-05 14:56 | PHA.REVIEW2 ---
Pharmacy Admission Review Admission Clinical Review Admission Pharmacy Review: Failure of outpatient treatment (Acute) Acute diverticulitis (Acute) latex Adverse Reaction (Severe, Verified 04/03/25 12:15) Skin Rash amoxicillin (From Augmentin) Adverse Reaction (Verified 04/03/25 12:15) Agitation azithromycin (From Zithromax) Adverse Reaction (Verified 04/03/25 12:15) headache, hearing loss,double vision, DAVILA ciprofloxacin (From Cipro) Adverse Reaction (Verified 04/03/25 12:15) Dizziness/Lightheade clavulanic acid (From Augmentin) Adverse Reaction (Verified 04/03/25 12:15) Agitation codeine Adverse Reaction (Verified 04/03/25 12:15) GI upset doxycycline Adverse Reaction (Verified 04/03/25 12:15) Other (See Comment) metronidazole (From Flagyl) Adverse Reaction (Verified 04/03/25 12:15) Agitation Penicillins Adverse Reaction (Verified 04/03/25 12:15) Other (See Comment) Sulfa (Sulfonamide Antibiotics) Adverse Reaction (Verified 04/03/25 12:15) anxious Resuscitation Status Full Code Height 5 ft 4 in Weight 74.389 kg Comments Comments/Follow Ups: Contact provider regarding IV to PO switch of medications Pharmacy Admission Review Renal Dosing Renal Dosing: BUN 4 mg/dL (7-18) L 04/05/25 06:20 Creatinine 0.7 mg/dL (0.55-1.02) 04/05/25 06:20 Medications needing adjustments: Reviewed (CrCl 53.19 mL/min) List of meds needing interventions: Current medications are okay Anticoagulation Anticoagulation: Hgb 12.3 g/dL (11.2-15.7) 04/05/25 06:20 Hct 37.6 % (36.0-46.0) 04/05/25 06:20 Plt Count 119 10^3/uL (130-400) L 04/05/25 06:20 Creatinine 0.7 mg/dL (0.55-1.02) 04/05/25 06:20 DVT Prophylaxis: Reviewed (SCDs) Opiate Usage Evaluate Pain Scale/Pains Meds: Reviewed (hydromorphone 1mg IVP q4h PRN - 1mg/24hrs) Scheduled Bowel Reg ordered if on Opiates?: No (PRN Miralax) Relevant Labs Relevant Labs: Sodium 143 mmol/L (136-145) 04/05/25 06:20 Potassium 4.0 mmol/L (3.5-5.1) 04/05/25 06:20 Chloride 108 mmol/L (98-107) H 04/05/25 06:20 Magnesium 1.7 mg/dL (1.8-2.4) L 04/05/25 06:20 Electrolytes, C-Reactive P, ESR: Reviewed Cardiac Review Cardiac Review: Troponin I 7 ng/L (<or=51) 04/03/25 17:35 Blood Pressure 145/66 1124 Blood Pressure 140/62 0735 BP, HR, EF%: Reviewed (HR 56) List meds needing interventions: Has order for amlodipine 5mg daily QTc Review QTc: Reviewed (435 from 04/03/25) IV to PO Switch IV Medications: Reviewed (hydromorphone, ketorolac, meropenem, ondansetron and pantoprazole - was NPO, reach out to provider to switch meds to PO now that patient is tolerating PO intake) Home Meds Home Med List reviewed: Reviewed Relevent Home Meds Not ordered & why?: aspirin, esomeprazole (has order for IV pantoprazole) and rizatriptan (PRN) Current Meds Current Medication Order Review: Intervened Comments: Added IV access order Pharmacy Antibiotic Review Relevant Labs: WBC 4.20 10^3/uL (4.4-10.8) L 04/05/25 06:20 Temperature 36.6 C Temperature 37.0 C Pharmacy Antibiotic Activity: Reviewed, no change Comments: Patient is on meropenem, day 2, for diverticulitis. No cultures pending at this time. Comments Comments/Follow Ups: Contact provider regarding IV to PO switch of medications
[2025-04-05 15:17] VITALS: BP 132/74; PULSE 59; RESP 18; TEMP 36.6; O2SAT 93
--- NOTE | 2025-04-05 16:53 | CHAPLAIN ---
Benita was resting in bed when I visited. She said she's still not allowed to eat. She doesn't have any family that she wants to be in touch with, but her friend, Purvi, is checking in on her and is a good support, Benita said.
--- NOTE | 2025-04-05 17:05 | PGE_ITS ---
Date of Service Date of service: 04/05/25 Time of Service: 17:06 Assessment and Plan Assessment and plan (1) Acute diverticulitis: Status: Acute Assessment and plan: Acute Diverticulitis ? Failed Outpatient Treatment. Confirmed by CT without abscess or perforation Patient with known with ongoing history of diverticulosis presents with persistent abdominal pain, nausea, bloating after 55 days of outpatient antibiotics (Bactrim and Flagyl). surgical consult ongoing - no Surgery planned for now- elective surgery OPT Advanced to oral diet PRN pain medicine - encourage transition to oral PRN antiemitics IVF d/c Continue meropenem Lab in AM (2) Failure of outpatient treatment: Status: Acute Assessment and plan: See above (3) Bipolar I disorder: Status: Chronic Assessment and plan: Stable On home dose sertraline, lamotrigine, Rexulti, trazodone Continue to monitor (4) Alcohol use disorder: Status: Chronic Assessment and plan: Reported last drink on 03/31/2025 and daily drinking of 2 beers daily without any experience previous withdrawal symptoms, or DT's. Will continue to monitor Will discontinue Alcohol assessment Q4 H - not scoring (5) Cramer's esophagus: Status: Chronic Assessment and plan: Continue IV PPI transition to oral PPI on d/c (6) Hypertension: Status: Chronic Assessment and plan: On home dose amlodipine Continue to monitor and adjust as needed Discussed with Dr. Raya Subjective Subjective Patient reports: feels better, pain is less, tolerating liquids well, tolerating a regular diet, voiding w/o difficulty and nausea; denies diarrhea, vomiting, shortness of breath or fever Exam Narrative Exam Narrative: No acute distress, alert and oriented X3. No focal neurological deficit, clear lung unlabored breathing, S1-S2 regular no murmur, abdomen round nondistended soft non-tender , no CVA tenderness moves all 4 extremities Objective Last Vital Signs Temp 36.6 C 04/05/25 15:17 Pulse 59 L 04/05/25 15:17 Resp 18 04/05/25 15:17 BP 132/74 04/05/25 15:17 Pulse Ox 93 04/05/25 15:17 Laboratory Results - last 24 hr 04/05/25 06:20 WBC 4.20 L RBC 3.83 L Hgb 12.3 Hct 37.6 MCV 98 H MCH 32.1 MCHC 32.7 RDW 13.1 Plt Count 119 L MPV 10.4 Immature Gran % 5.0 Neutrophils % 40.7 Lymphocytes % 29.3 Monocytes % 19.3 Eosinophils % 5.2 Basophils % 0.5 Nucleated RBC % 0.0 Absolute Neutrophils 1.71 Absolute Lymphocytes 1.23 Absolute Monocytes 0.81 H Absolute Eosinophils 0.22 Absolute Basophils 0.02 Sodium 143 Potassium 4.0 Chloride 108 H Carbon Dioxide 28.3 Anion Gap 6.7 BUN 4 L Creatinine 0.7 Est GFR (CKD-EPI 2020) 94.15 Glucose 91 Calcium 8.9 Magnesium 1.7 L PAWSS Have you Been Recently Intoxicated or Drunk Within the Last 30 days?: No Have you Ever Experienced Previous Episodes of Alcohol Withdrawal?: No Have you ever Experienced Withdrawal Seizures?: No Have you ever Experienced Delirium Tremens(DT)s?: No Have you ever undergone Alcohol Rehabilitation Treatment (i.e, inpt ot outpatient treatment programs)?: No Have you ever Experienced Blackouts?: No Have you ever Combined Alcohol with other Downers within the last 90 days?: No Have you ever Combined Alcohol with any other Substance of Abuse during the last 90 days?: No Positive Blood Alcohol level on Presentation? [PCS.BAL]: No Evidence of Increased Autonomic Activity (i.e. HR>120, tremor, sweating, agitation, nausea)?: No Result: 0 Time Spent with Patient Time Spent with Patient: >50 minutes Time was spent: preparing to see the patient(eg.review tests), obtaining and/or reviewing separately otained hiistory, ordering medications,tests, procedures, referring, communicating with other health caregiver assisted living, indepentently interpreting results, counseling the patient and care coordination
--- NOTE | 2025-04-05 17:19 | SCONE_ITS ---
Date of service: 04/03/25 Time of Service: 18:00 Assessment and Plan Assessment and plan (1) Acute diverticulitis: Status: Acute Assessment and plan: History is consistent with a smoldering episode of diverticulitis that is difficult to resolve. Persistent thickening and inflammatory change of the sigmoid colon on CAT scan suggest completely episodes. She does not have any acute complications of the diverticulitis but is not tolerating the symptoms and is not tolerating or responding to medications as outpatient. I am concerned that she may need an sigmoidectomy with colostomy creation. In order to proceed with holding IV antibiotics and complete bowel rest. Meropenem has been selected due to her allergy profile. If she improves on IV antibiotics then oral antibiotics can be continued to complete the course and she can be discharged with plan to follow-up for complete evaluation for sigmoidectomy. Recurrent difficulty passing stool suggest stricture or acute inflammatory changes resulting in difficulty passing stools. I expect this to improve prior to baseline with treatment. That would be an indicator of response to treatment. To be clear she does not have a colonic obstruction Presently. (2) Failure of outpatient treatment: Status: Acute History of Present Illness History of Present Illness Chief Complaint: diverticulitis Narrative: This is a 70-year-old female who was seen in clinic on the same day of admission. I was consulted to see her, she was admitted through the emergency department for diverticulitis. I was seeing her in the office after prior emergency room visit for diverticulitis so that we could discuss possible sigmoidectomy. She reports that on the day of her office appointment with me on 04/03/2025 that she developed severe abdominal pain. She says that the pain was worse than her usual diverticulitis pain. She said the pain was diffuse. She was unable to have a bowel movement but was able to pass flatus. She says the pain looks like diverticulitis pain she has had in the past but more severe. She felt feverish and chilled but did not measure her temperature. She was afebrile in the office with normal vital signs. On examination her abdomen was distended and diffusely tender instructed to go to the emergency department. In the emergency room, CAT scan was done that showed diverticulitis without overcompensation. She was diagnosed with the same diverticulitis within the last week and has had multiple otherwise uncomplicated episodes within the last year. She has multiple antibiotic allergies including allergies to amoxicillin and azithromycin ciprofloxacin clavulanic acid portion of Augmentin doxycycline and metronidazole sulfa antibiotics and penicillins. She has been prescribed clindamycin and said that it did not help her diverticulitis. She admits to me that most of her allergic reactions are GI upset. She has noted to have chronic abdominal symptoms and has been seen for colonoscopy in the past.. Review of Systems All systems reviewed & are unremarkable except as noted in HPI and below PFSH All Active Problems Failure of outpatient treatment (Acute) Acute diverticulitis (Acute) Bipolar I disorder (Chronic) [place] [facility] Alcohol use disorder (Chronic) Diverticular stricture (Chronic) Followed by [facility] Colon stricture (Chronic) Followed by [facility] Cramer's esophagus (Chronic) On 2009 EGD, not on 2012 EGD, on 2023 EGD Gastroesophageal reflux disease with esophagitis (Chronic) Diverticulosis of colon (Chronic) Chronic diarrhea (Chronic) Hypertension (Chronic) Hyperlipidemia (Chronic) Hiatal hernia (Chronic) Migraine (Chronic) 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) Glaucoma (Chronic) Allergic rhinitis (Chronic) Medical History TIA (transient ischemic attack) (~05/2024) TMJ (temporomandibular joint disorder) Diverticulitis of sigmoid colon Multiple episodes, seeing [facility] Diabetes mellitus Surgical History S/P cholecystectomy S/P BSO (bilateral salpingo-oophorectomy) (07/03/15) Status post foot surgery History of total vaginal hysterectomy (TVH) (07/03/15) With cystoscopy and rectocele repair History of esophagogastroduodenoscopy History of bilateral ligation of fallopian tubes Family History Mother Stroke Lung cancer Hypertension Father Heart disease Hyperlipidemia Hypertension Brother Heart disease DOUBLE BYPASS AGE 48 (NON SMOKER) Hyperlipidemia Son Depression Daughter Depression Maternal Grandfather Lung cancer Maternal Grandmother Heart disease Myocardial infarction Paternal Grandfather No problems noted. Paternal Grandmother Diabetes Social History Smoking/Tobacco Use Status: Former Tobacco Use Quit Date: 09/05/77 Smoking risk assessment performed?: Yes Alcohol Intake: never Drug use: Never Substance use type: does not use Housing: house Do you feel safe at home: Yes Do you feel safe in your relationship?: Yes Additional Social history: lives alone / no car Exam Narrative Exam Narrative: awake, NAD eomi, MMM midline trachea, neck is symmetric PULM: normal resp effort, equal chest rise with respiration, no wheezing audible CARDIAC: normal PMI, no jvd, regular rate, normal perfusion abdomen is distended, tender middle lower abdomen and epigastrium. extremities are without deformity, normal movement of all four extremities speech is clear and coherent mood and affect are congruent though discordant to her acute discomfort. She is calm. no focal neurological deficits skin without rash Results Last Vital Signs Temp 97.9 F 04/05/25 15:17 Pulse 59 L 04/05/25 15:17 Resp 18 04/05/25 15:17 BP 132/74 04/05/25 15:17 Pulse Ox 93 04/05/25 15:17 Labs 04/05/25 06:20 04/05/25 06:20 Labs: Laboratory Results - last [address] scan report/results: report reviewed
[2025-04-05] MEDS: Enoxaparin 40 MG/0.4 ML SYR SC (18:10)
[2025-04-05 19:24] VITALS: BP 139/87; PULSE 61; RESP 19; TEMP 36.6; O2SAT 92
[2025-04-05] MEDS: traZODone 100 MG TAB 250 MG PO (20:02)
[2025-04-05] MEDS: lamoTRIgine 100 MG TAB 200 MG PO (20:02)
[2025-04-05 23:39] VITALS: BP 129/54; PULSE 65; RESP 18; TEMP 36.5; O2SAT 93
[2025-04-06] MEDS: HYDROmorphone 2 MG TAB PO (02:46)
[2025-04-06 06:55] LABS: Abs Immature Grans 0.15 10^3/uL (0.0-0.06); HCT 40.0 % (36.0-46.0); HGB 13.1 g/dL (11.2-15.7); Immature Grans % 3.8 %; MCH 32.0 pg (27.0-33.0); MCHC 32.8 % (32.0-36.0); MCV 98 fL (80-95); MPV 10.8 fL (8.0-11.0); RBC 4.10 10^6/uL (3.93-5.22); RDW 13.0 % (11.7-14.6); RDW-SD 46.5 fL; WBC 3.94 10^3/uL (4.4-10.8)
[2025-04-06 07:12] LABS: Anion Gap 5.3 mmol/L (3-11); BUN 4 mg/dL (7-18); CO2 30.7 mmol/L (21.0-32.0); Calcium 9.3 mg/dL (8.5-10.1); Chloride 107 mmol/L (98-107); Estimated GFR 94.15 (mL/min/1.73m2); Glucose 90 mg/dL (74-106); Magnesium 1.7 mg/dL (1.8-2.4); Potassium 4.2 mmol/L (3.5-5.1); Sodium 143 mmol/L (136-145)
[2025-04-06 07:17] VITALS: BP 153/75; PULSE 59; RESP 17; TEMP 36.4; O2SAT 93
[2025-04-06 07:18] LABS: C-Reactive Protein < 0.50 mg/dL (<or=0.5)
[2025-04-06] MEDS: Sertraline 100 MG TAB PO (07:31)
[2025-04-06] MEDS: amLODIPine 5 MG TAB PO (07:31)
[2025-04-06] MEDS: Ketorolac 15 MG/ML VIAL IVP (07:32)
[2025-04-06] MEDS: Normal Saline Flush 10 ML SYR IVP (07:32)
[2025-04-06] MEDS: Pantoprazole 40 MG VIAL IVP (07:32)
[2025-04-06] MEDS: Enoxaparin 40 MG/0.4 ML SYR SC (07:32)
[2025-04-06 07:51] LABS: Platelet Count 92 10^3/uL (130-400)
[2025-04-06] MEDS: Famotidine 20 MG TAB PO (09:07)
[2025-04-06] MEDS: MAGNESIUM SULFATE 2 GM/50 ML BAG IV_INF (09:08)
[2025-04-06] MEDS: Magnesium Oxide 400 MG TAB 800 MG PO (10:46)
--- NOTE | 2025-04-06 11:24 | DSE_ITS ---
Date of service: 04/06/25 Time of Service: 11:24 DS: Diagnosis Discharge Diagnosis (1) Acute diverticulitis: Status: Acute (2) Failure of outpatient treatment: Status: Acute Discharge Plan Disposition Patient Disposition: Home Condition: Improving Discharge Details Reason For Visit: Diverticulitis Admit Date/Time: 04/03/25 16:35 Admit Provider: Dennis Ha Attending Provider: Denins Ha [facility]: 70-year-old female with past medical history of ongoing diverticulitis with new flare diagnosed the previous week in the ED , bipolar disorder, hypertension presented to the ED on 04/03/25 for evaluation of ongoing abdominal pain ongoing pain and nausea, bloating, constipation as well as dizziness. The patient had been on Bactrim and Flagyl X 5 days and was seen in surgery for who referred her to the ED on the day of presentation follow-up today. Labs were unremarkable. CT imaging showed ongoing diverticulitis in lower sigmoid, no obvious form abscess, no free air, mobile cecum left centered above the level the pelvis, and . appendix containing an appendicolith w/o evidence of acute appendicitis. The patient was admitted to the medical surgical floor under the hospitalist service as per surgical consult recommendation for IV antibiotic, IVF, antiemetic, bowel rest on ongoing evaluation. The patient was able to tolerate enteral intake and pain was controlled. The patient will be discharge home and will need to follow-up with surgery in 2 weeks. Follow-up with PCP within 7 days of discharge. As per discussion with surgery where patient was willing to take ciprofloxacin which was listed as an allergy but only causing an upset her stomach. Ciprofloxacin 500 mg PO BID ordered for [address] Elver Han Meds and New Rx's Prescriptions: New ibuprofen 400 mg tablet 400 mg PO Q8H PRNQty: 14 0RF hydromorphone 2 mg tablet 2 mg PO Q8H PRNQty: 10 0RF famotidine 20 mg tablet 20 mg PO QHS Qty: 14 0RF polyethylene glycol 3350 17 gram Powder In Packet 17 g PO DAILY Qty: 14 0RF acetaminophen 325 mg Tablet 650 mg PO Q6H PRNQty: 30 0RF ciprofloxacin HCl 500 mg tablet 500 mg PO BID Qty: 14 0RF Continued lamotrigine 200 mg tablet 200 mg PO QHS aspirin [Children's Aspirin] 81 mg tablet,chewable 81 mg PO DAILY Qty: 90 3RF trazodone 100 mg tablet 250 mg PO QHS Rexulti 3 mg tablet 3 mg PO DAILY amlodipine 5 mg tablet 5 mg PO DAILY Qty: 90 3RF esomeprazole magnesium [Nexium] 40 mg capsule,delayed release(DR/EC) 40 mg PO DAILY Qty: 90 3RF rizatriptan 10 mg tablet,disintegrating 10 mg translingual ONCE Qty: 14 3RF ondansetron HCl 4 mg tablet See Rx Instructions .ROUTE .COMPLEX Qty: 20 0RF Dose Instruction: TAKE 1 TABLET BY MOUTH EVERY 8 HOURS NEEDED FOR NAUSEA OR VOMITING Rx Instructions: TAKE 1 TABLET BY MOUTH EVERY 8 HOURS NEEDED FOR NAUSEA OR VOMITING sertraline 100 mg tablet 100 mg PO DAILY trazodone 150 mg tablet 150 mg PO HS Discharge Instructions Stand Alone Forms: Nursing Discharge Form Referrals: Cathie Strange NP [Primary Care Provider, Medicine] Referral Note: Follow-up with 7 days of discharge please. Office will call you. Alyx Hazel MD [ [facility] STAFF PHYSICIAN, Surgery] Referral Note: Follow-up in 2 weeks please, Office will call you for a follow up appointment. Activity:: Activity as Tolerated Equipment/Supplies:: No Equipment Needed Diet:: heart healthy Discharge Orders Discharge Orders: Discharge Order (Routine); Ordered 04/06/25 Ordered By: Radha Costa Discharge Data Discharge Date/Time-TO BE ENTERED AT DEPARTURE: 04/06/25 12:15 DS: Summary Time Spent with Patient providing and/or coordinating discharge services: Greater than 30 minutes Status at Discharge Functional status at discharge: uses cane/walker Overall status at discharge: patient is progressing back to baseline Mental Status: mental status grossly normal Speech and Movement: speech and movement normal Mood: congruent mood Affect: normal affect Quality:SDOH Health Related Social Needs: Health related social needs risk of homeless Exam Narrative Exam Narrative: Alert and oriented X3. neurologically intact, clear lung unlabored breathing, S1-S2 regular , abdomen round nondistended soft non-tender , moves all 4 extremities Psych Mental Status: mental status grossly normal Speech and Movement: speech and movement normal Mood: congruent mood Affect: normal affect DS: Data Vitals/I&O Vitals and I&O: Vital Signs Temperature 36.4 C L 08/02/25 07:17 Temperature Source Skin 04/06/25 07:17 Pulse 59 L 04/06/25 07:17 Pulse Rhythm Regular 04/03/25 18:07 Pulse 63 04/03/25 15:40 Respiratory Rate 17 04/06/25 07:17 Respiratory Effort Normal 04/03/25 18:07 Respiratory Depth Normal 04/03/25 18:07 Respiratory Pattern Normal 04/03/25 18:07 Blood Pressure 153/75 H 04/06/25 07:17 Blood Pressure Mean 101 04/06/25 07:17 Blood Pressure Position Sitting 04/03/25 12:14 Pulse Oximetry 93 04/06/25 07:17 Oxygen Delivery Method Room Air 04/06/25 07:17 Oxygen Flow Rate 0 04/06/25 07:17 Pain Level 5 04/06/25 07:17 Comment pt requested to be left alone for 0300 vitals, will get when pt wakes up 04/06/25 03:40 Intake & Output 04/05/25 04/05/25 04/06/25 11:59 23:59 11:59 Intake Total 1100 / 3260 2160 / 3260 112.083 / 112.083 Balance 1100 / 3260 2160 / 3260 112.083 / 112.083 Intake: IV 1100 / 2300 1200 / 2300 112.083 / 112.083 Oral 960 / 960 Other: Urine Color Pale Yellow Urine Appearance Clear Comment pT states shes urinated today pT stated that she voided. Stool Size Moderate Stool Characteristics Liquid Data Completed and Pending Labs on day of discharge: Labs from last 24 hours 04/06/25 06:36 WBC 3.94 L RBC 4.10 Hgb 13.1 Hct 40.0 MCV 98 H MCH 32.0 MCHC 32.8 RDW 13.0 Plt Count 92 L MPV 10.8 Immature Gran % 3.8 Neutrophils % 38.2 Lymphocytes % 29.9 Monocytes % 22.3 Eosinophils % 5.3 Basophils % 0.5 Nucleated RBC % 0.0 Absolute Neutrophils 1.51 Absolute Lymphocytes 1.18 L Absolute Monocytes 0.88 H Absolute Eosinophils 0.21 Absolute Basophils 0.02 Sodium 143 Potassium 4.2 Chloride 107 Carbon Dioxide 30.7 Anion Gap 5.3 BUN 4 L Creatinine 0.7 Est GFR (CKD-EPI 2020) 94.15 Glucose 90 Calcium 9.3 Magnesium 1.7 L C-Reactive Protein < 0.50 PFSH All Active Problems Failure of outpatient treatment (Acute) Acute diverticulitis (Acute) Bipolar I disorder (Chronic) [facility] Alcohol use disorder (Chronic) Diverticular stricture (Chronic) Followed by [facility] Colon stricture (Chronic) Followed by 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 Diabetes mellitus Surgical History S/P cholecystectomy S/P BSO (bilateral salpingo-oophorectomy) (07/03/15) Status post foot surgery History of total vaginal hysterectomy (TVH) (07/03/15) With cystoscopy and rectocele repair History of esophagogastroduodenoscopy History of bilateral ligation of fallopian tubes Family History Mother Stroke Lung cancer Hypertension Father Heart disease Hyperlipidemia Hypertension Brother Heart disease DOUBLE BYPASS AGE 48 (NON SMOKER) Hyperlipidemia Son Depression Daughter Depression Maternal Grandfather Lung cancer Maternal Grandmother Heart disease Myocardial infarction Paternal Grandfather No problems noted. Paternal Grandmother Diabetes Social History Smoking/Tobacco Use Status: Former Tobacco Use Quit Date: 09/05/77 Smoking risk assessment performed?: Yes Alcohol Intake: never Drug use: Never Substance use type: does not use Housing: house Do you feel safe at home: Yes Do you feel safe in your relationship?: Yes Additional Social history: lives alone / no car Time Spent with Patient Time Spent with Patient: 70-84 minutes4 Time was spent: preparing to see the patient(eg.review tests), obtaining and/or reviewing separately otained hiistory, ordering medications,tests, procedures, referring, communicating with other health rn progressive care unit, indepentently interpreting results, counseling the patient and care coordination
[2025-04-06 11:40] VITALS: BP 159/72; PULSE 70; RESP 16; TEMP 36.9; O2SAT 94
--- NOTE | 2025-04-06 13:10 | PGE_ITS ---
Date of Service Date of service: 04/06/25 Time of Service: 10:30 Assessment and Plan Assessment and plan (1) Acute diverticulitis: Status: Acute Assessment and plan: decreased pain/tenderness and symptoms of acute obstipation/constipation. Afebrile, stable normal vitals and no leukocytosis. Exam improved. No indication for acute surgical intervention. Home on ciprofloxacin to complete 10d of abx therapy. she is allergic to flagyl. Other alternatives she has refused due to previous bad reactions she refers to as allergies. Will discuss elective sigmoidectomy. Seems she has been seen at [facility] [place] [place] for stricture of the colon and that may be the primary issue that keeps her from fully resolving. See surgery clinic in 2 weeks. stable for dc home. Subjective Subjective Patient reports: no new complaints, feels better, tolerating a regular diet, flatus and bowel movement (formed) Interval history since last seen: feels a lot better. less pain, tolerating diet, and resolving difficulty w bowel movements. stools loose on , today she had a formed one. Exam Const Other: awake, NAD eomi, MMM normal resp effort abd soft, nondistended, only mild central ttp today Objective Last Vital Signs Temp 98.4 F 04/06/25 11:40 Pulse 70 04/06/25 11:40 Resp 16 04/06/25 11:40 BP 159/72 H 04/06/25 11:40 Pulse Ox 94 04/06/25 11:40 Laboratory Results - last 24 hr 04/06/25 06:36 WBC 3.94 L RBC 4.10 Hgb 13.1 Hct 40.0 MCV 98 H MCH 32.0 MCHC 32.8 RDW 13.0 Plt Count 92 L MPV 10.8 Immature Gran % 3.8 Neutrophils % 38.2 Lymphocytes % 29.9 Monocytes % 22.3 Eosinophils % 5.3 Basophils % 0.5 Nucleated RBC % 0.0 Absolute Neutrophils 1.51 Absolute Lymphocytes 1.18 L Absolute Monocytes 0.88 H Absolute Eosinophils 0.21 Absolute Basophils 0.02 Sodium 143 Potassium 4.2 Chloride 107 Carbon Dioxide 30.7 Anion Gap 5.3 BUN 4 L Creatinine 0.7 Est GFR (CKD-EPI 2020) 94.15 Glucose 90 Calcium 9.3 Magnesium 1.7 L C-Reactive Protein < 0.50 PAWSS Have you Been Recently Intoxicated or Drunk Within the Last 30 days?: No Have you Ever Experienced Previous Episodes of Alcohol Withdrawal?: No Have you ever Experienced Withdrawal Seizures?: No Have you ever Experienced Delirium Tremens(DT)s?: No Have you ever undergone Alcohol Rehabilitation Treatment (i.e, inpt ot outpatient treatment programs)?: No Have you ever Experienced Blackouts?: No Have you ever Combined Alcohol with other Downers within the last 90 days?: No Have you ever Combined Alcohol with any other Substance of Abuse during the last 90 days?: No Positive Blood Alcohol level on Presentation? [PCS.BAL]: No Evidence of Increased Autonomic Activity (i.e. HR>120, tremor, sweating, agitation, nausea)?: No Result: 0 Time Spent with Patient Time Spent with Patient: 25-34 minutes Time was spent: preparing to see the patient(eg.review tests), referring, communicating with other health senior care manager and care coordination
--- NOTE | 2025-04-06 15:54 | PDOC.CMDIS ---
Date of service: 04/06/25 Time of Service: 15:54 LACE Index Scoring Tool Questions: Length of Stay (in days): 3 Was the patient admitted via the E.D.?: Yes Comorbidities: Cerebrovascular Disease and Diabetes w/o Complication E.D. Visits: 5 Answers: Total Score: 12 Risk of Readmission: High Risk Care Management Discharge Plan Reason for Hospitalization: diverticulitis Discharge Plan: Benita will discharge home with no new services. She will follow up with community providers and discharge plan of care as directed and transport via private vehicle. Patient/Family Education Needs: Review discharge instructions, limitations, follow up plan and discuss Ask Me Three SDOH Health Related Social Needs: Health related social needs risk of homeless
== END 2025-04-06 12:15 | disposition home or self-care (01) | DRG 392 ==
LOC: ER 16:07 → MS 18:07
PROVIDERS: Nurse Practitioner Family; Admitting Provider Family Medicine; Emergency Provider Emergency Medicine Emergency Medical Services; PCP Nurse Practitioner Family; Responsible Provider Nurse Practitioner Acute Care; Visit Provider Family Medicine
DX: K57.32 Diverticulitis of large intestine without perforation or abscess without bleeding (principal); K56.699 Other intestinal obstruction unspecified as to partial versus complete obstruction; F31.9 Bipolar disorder, unspecified; F10.90 Alcohol use, unspecified, uncomplicated; K22.70 Barrett's esophagus without dysplasia; I10 Essential (primary) hypertension; K21.00 Gastro-esophageal reflux disease with esophagitis, without bleeding; E78.5 Hyperlipidemia, unspecified; G52.7 Disorders of multiple cranial nerves; K44.9 Diaphragmatic hernia without obstruction or gangrene; G43.909 Migraine, unspecified, not intractable, without status migrainosus; Z86.73 Personal history of transient ischemic attack (TIA), and cerebral infarction without residual deficits; Z79.899 Other long term (current) drug therapy
CPT/HCPCS: 00123; 36415; 80048; 80053; 83690; 93005; 96361; 96365; 96375; 99222; 99223; 99231; 99232; 99285; J1650; 74177; 81003; 83735; 84484; 85025; 86140; 93010; 99233; 99239; J0696; J1171; J1335; J1836; J1885; J2185; J2270; J2405; J2470; J3475; J3490

== ENCOUNTER 2025-07-21 14:25 | Emergency (ER) | payer MEDICARE, SELFPAY ==
[2025-07-21] VITALS (22 sets, daily range): BP systolic 127–155; BP diastolic 64–104; PULSE 60–112; RESP 15–27; TEMP 36.4; O2SAT 87–96
--- NOTE | 2025-07-21 14:45 | DI.CT_ITS ---
Exam(s) CT ABDOMEN PELVIS W EXAM: CT ABDOMEN PELVIS W CLINICAL HISTORY: abd pain, vomiting. TECHNIQUE: Imaging Protocol: Axial computed tomography images with coronal and sagittal reformatted images were created and reviewed CONTRAST MATERIAL: Intravenous: Omnipaque-350 100cc Oral: None COMPARISON: CT CT ABDOMEN PELVIS W from 04/03/2025 FINDINGS: VISUALIZED LUNG BASES: There are persistent increased markings in the posterior basal segment of the right lower lobe. Previously present increased markings in the left lower lobe have resolved. There are no pleural effusions.. ABDOMEN: There is no ascites. LIVER: There are no focal hepatic lesions evident. No dilated intrahepatic ducts. GALLBLADDER/BILIARY: The gallbladder is again noted be surgically absent. CBD diameter is upper normal. PANCREAS: No evidence of pancreatic mass nor dilatation of the pancreatic duct. SPLEEN: Size is normal. There is a small hypodensity in the superior aspect of the spleen which is probably a small cyst or hemangioma, unchanged. There is also a tiny calcified granuloma again noted in the spleen. Splenic and portal veins are patent. ADRENALS: There are no significant adrenal masses. KIDNEYS:No cysts evident. 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 No other significant focal renal findings. No hydronephrosis. ABDOMINAL AORTA: Abdominal aorta is not enlarged. LYMPH NODES:There is no retroperitoneal nor paraaortic adenopathy. ABDOMINAL WALL: Again noted is a previously described anterior abdominal wall hernia which is anterior to the left hepatic lobe and does not contain bowel loops and appears similar to CT scan of 04/03/2025. GI: There is no evidence of bowel obstruction, free air, nor abscess. The cecum is again noted to be mobile and located left of center. PELVIS: GI: No evidence of appendicitis.There is diverticulosis again noted in the descending-left colon as well as throughout the sigmoid. Previously present findings of diverticulitis appear to have resolved. There is no obvious acute diverticulitis at this time. No free fluid. LYMPH NODES: There is no intrapelvic nor inguinal adenopathy. REPRODUCTIVE: Uterus is again noted be surgically absent. There no abnormal adnexal masses. URINARY BLADDER: No calculi nor obvious masses evident. There is no gas in the bladder lumen to suggest the presence of a colovesical fistula. OSSEOUS: No fractures and no significant osseous lesions. Mild degenerative anterolisthesis L4 upon L5 is again noted related to facet arthropathy. IMPRESSION: 1. Again noted is evidence of previous cholecystectomy and hysterectomy. 2. Unchanged anterior abdominal wall hernia as described above. Does not contain bowel loops. There is no evidence of bowel obstruction. 3. Mobile cecum again noted left of center. No evidence of bowel obstruction, free air, nor abscess. 4. There is diverticulosis of the left side of the colon and extensive sigmoid diverticulosis again noted. However, there is no evidence of obvious acute diverticulitis at this time. 5. The previously present mild infiltrate in the left lung base has resolved. There is some persistent mild increased markings in the right lung base. There are no pleural effusions. Report called by myself to ER physician 07/21/2025 at 4:05 p.m. RADIATION DOSE DELIVERED: 480.7mGy.cm Total DLP DATA REPOSITORY: All CT scans at this facility are submitted to the National Radiology Data Registry (NRDR) Dose Index Registry (DIR) with the [employer] (A[employer]). RADIATION OPTIMIZATION: All CT scans at this facility use at least one of these dose optimization techniques: automated exposure control; mA and/or kV adjustment per patient size (includes targeted exams where dose is matched to clinical indication); or iterative reconstruction.
--- NOTE | 2025-07-21 15:00 | W.ED.GENAD ---
Discharge Plan Disposition Patient Disposition: Home Condition: Fair Discharge Details Clinical Impression: Abdominal pain Primary Care Provider: Cathie Strange ED Provider: George Mendoza Home Meds and New Rx's Prescriptions: New ondansetron 4 mg tablet,disintegrating 4 mg PO Q6H PRNQty: 10 0RF No Action lamotrigine 200 mg tablet 200 mg PO QHS aspirin [Children's Aspirin] 81 mg tablet,chewable 81 mg PO DAILY Qty: 90 3RF Rexulti 3 mg tablet 3 mg PO DAILY amlodipine 5 mg tablet 5 mg PO DAILY Qty: 90 3RF esomeprazole magnesium [Nexium] 40 mg capsule,delayed release(DR/EC) 40 mg PO DAILY Qty: 90 3RF rizatriptan 10 mg tablet,disintegrating 10 mg translingual ONCE Qty: 14 3RF ondansetron HCl 4 mg tablet See Rx Instructions .ROUTE .COMPLEX Qty: 20 0RF Dose Instruction: TAKE 1 TABLET BY MOUTH EVERY 8 HOURS NEEDED FOR NAUSEA OR VOMITING Rx Instructions: TAKE 1 TABLET BY MOUTH EVERY 8 HOURS NEEDED FOR NAUSEA OR VOMITING sertraline 100 mg tablet 100 mg PO DAILY trazodone 150 mg tablet 150 mg PO HS famotidine 20 mg tablet 20 mg PO QHS Qty: 14 0RF polyethylene glycol 3350 17 gram Powder In Packet 17 g PO DAILY Qty: 14 0RF acetaminophen 325 mg Tablet 650 mg PO Q6H PRNQty: 30 0RF Discharge Instructions Instructions: Abdominal Pain, Adult ED Stand Alone Forms: Portal Information Referrals: Cathie Strange, KANDI [Primary Care Provider, Medicine] - 5 days HPI General Date/Time Provider Initiated Documentation: 07/21/25 14:51. HPI Narrative: This is a 70-year-old female presenting to the emergency department with a chief complaint of abdominal pain. Patient has a notable history of diabetes, diverticulitis, colonic stricture, GERD, hypertension, hyperlipidemia, bipolar. the patient states that she has been ill for about a week. She states that she has pain throughout her abdomen. There is no area that is focal. She describes it as crampy and moderate to severe. She has had nausea and has vomited once or twice. She had diarrhea once yesterday. Nothing bloody or concerning. She does not have a history of similar pains in the past. She does have a history of diverticulitis but states that it was different. No fevers. No cough or shortness of breath. No chest pain. Patient has a history of tubal ligation but no other abdominal surgeries. She estimates that her last colonoscopy was a couple of years ago and she believes it was normal. She has not had any recent injuries. No other complaints or concerns at this time. Related Data Home Medications Medication Instructions Recorded Confirmed sertraline 100 mg tablet 100 mg PO DAILY 09/30/23 07/21/25 lamotrigine 200 mg tablet 200 mg PO QHS 10/21/23 07/21/25 brexpiprazole 3 mg tablet (Rexulti) 3 mg PO DAILY 09/13/24 07/21/25 aspirin 81 mg chewable tablet 81 mg PO DAILY #90 tabs 09/25/24 07/21/25 (Children's Aspirin) amlodipine 5 mg tablet 5 mg PO DAILY #90 tabs 11/06/24 07/21/25 esomeprazole magnesium 40 mg 40 mg PO DAILY #90 caps 12/20/24 07/21/25 capsule,delayed release (Nexium) rizatriptan 10 mg disintegrating 10 mg translingual ONCE #14 tabs 03/04/25 07/21/25 tablet trazodone 150 mg tablet 150 mg PO HS 04/05/25 07/21/25 acetaminophen 325 mg tablet 650 mg (2 x 325 mg) PO Q6H PRN #30 04/06/25 07/21/25 tabs famotidine 20 mg tablet 20 mg PO QHS #14 tabs 04/06/25 07/21/25 polyethylene glycol 3350 17 gram 17 g PO DAILY #14 ea 04/06/25 07/21/25 oral powder packet ondansetron HCl 4 mg tablet See Rx Instructions .Route 05/14/25 07/21/25 .COMPLEX #20 tabs ondansetron 4 mg disintegrating 4 mg PO Q6H PRN #10 tabs 07/21/25 tablet Previous Rx's Medication Instructions Recorded aspirin 81 mg chewable tablet 81 mg PO DAILY #90 tabs 09/25/24 (Children's Aspirin) amlodipine 5 mg tablet 5 mg PO DAILY #90 tabs 11/06/24 esomeprazole magnesium 40 mg 40 mg PO DAILY #90 caps 12/20/24 capsule,delayed release (Nexium) rizatriptan 10 mg disintegrating 10 mg translingual ONCE #14 tabs 03/04/25 tablet acetaminophen 325 mg tablet 650 mg (2 x 325 mg) PO Q6H PRN #30 04/06/25 tabs famotidine 20 mg tablet 20 mg PO QHS #14 tabs 04/06/25 polyethylene glycol 3350 17 gram 17 g PO DAILY #14 ea 04/06/25 oral powder packet ondansetron HCl 4 mg tablet See Rx Instructions .Route 05/14/25 .COMPLEX #20 tabs ondansetron 4 mg disintegrating 4 mg PO Q6H PRN #10 tabs 07/21/25 tablet Allergies Allergy/AdvReac Type Severity Reaction Status Date / Time latex AdvReac Severe Skin Rash Verified 07/21/25 14:37 amoxicillin (From Augmentin) AdvReac Agitation Verified 07/21/25 14:37 azithromycin (From Zithromax) AdvReac headache, Verified 07/21/25 14:37 hearing loss,double vision, DAVILA ciprofloxacin (From Cipro) AdvReac Dizziness/L Verified 07/21/25 14:37 ightheade clavulanic acid (From AdvReac Agitation Verified 07/21/25 14:37 Augmentin) codeine AdvReac GI upset Verified 07/21/25 14:37 doxycycline AdvReac Other (See Verified 07/21/25 14:37 Comment) metronidazole (From Flagyl) AdvReac Agitation Verified 07/21/25 14:37 Penicillins AdvReac Other (See Verified 07/21/25 14:37 Comment) Sulfa (Sulfonamide AdvReac anxious Verified 07/21/25 14:37 Antibiotics) General Stated Complaint: Abd Prob MARIAM: 3 Review of Systems All systems reviewed & are unremarkable except as noted in HPI and below Constitutional Constitutional: Reports system reviewed and no additional complaints, except as documented, Denies fever(s), Denies weakness and Denies weight loss Eyes Eyes: Denies blurry vision ENT Ears, Nose, Mouth, and Throat: Denies sore throat Cardiovascular Cardiovascular: Denies chest pain, Denies palpitations and Denies dyspnea Respiratory Respiratory: Denies cough, Denies dyspnea and Denies wheezing Gastrointestinal Gastrointestinal: Reports abdominal pain, Reports diarrhea, Reports nausea and Reports vomiting Genitourinary Genitourinary: Denies hematuria and Denies dysuria Musculoskeletal Musculoskeletal: Denies back pain, Denies arthralgias and Denies numbness Neurologic Neurologic: Denies numbness and Denies weakness Psychiatric Psychiatric: Denies suicidal ideation Endocrine Endocrine: Denies palpitations Allergic/Immunologic Allergic/Immunologic: Denies wheezing Exam Const General: well groomed and other (Uncomfortable) [facility] Mouth: oral mucosae normal and moist mucous membranes Throat: posterior oropharynx normal Eyes Conjunctivae: conjunctivae normal Sclera: sclerae normal Neck Neck: full ROM and No JVD Resp Effort & Inspection: normal respiratory effort Auscultation: clear to auscultation bilaterally Cardio Rate: regular rate Rhythm: regular rhythm Heart Sounds: no murmurs GI Palpation: soft and tender (Mild diffuse tenderness, no guarding) with no rebound tenderness Skin General skin exam: no rashes or lesions noted Neuro General: patient alert and patient oriented x3 Extrem General: normal to inspection and full ROM Psych Appearance: grossly normal Mental Status: mental status grossly normal Speech and Movement: speech and movement normal Affect: normal affect Thought Process: normal Course Vital Signs Vital signs: Vital Signs Temperature 36.4 C L 07/21/25 14:35 Pulse 83 07/21/25 14:35 Respiratory Rate 16 07/21/25 14:35 Blood Pressure 137/80 07/21/25 14:35 Pulse Oximetry 95 07/21/25 14:35 Temperature 36.4 C L 07/21/25 14:35 Temperature Source Temporal Artery Scan 07/21/25 14:35 Pulse 83 07/21/25 14:35 Respiratory Rate 16 07/21/25 14:35 Blood Pressure 137/80 07/21/25 14:35 Blood Pressure Position Sitting 07/21/25 14:35 Pulse Oximetry 95 07/21/25 14:35 Oxygen Delivery Method Room Air 07/21/25 14:35 Oxygen Flow Rate 0 07/21/25 14:35 Pain Level 6 07/21/25 14:35 Medical Decision Making This 70-year-old female presented to the Emergency Department for chief complaint of abdominal pain. The patient was seen and examined by me. Old charts were reviewed and nursing notes were reviewed. Patient was last seen here in late March of this year with a case of diverticulitis. An IV was established and a bolus of crystalloid was initiated. Patient was provided Zofran. She declined pain medication. Given her history of recurrent diverticulitis a CT was initiated. CT did not show any acute abnormalities. Labs are unremarkable. [facility]. She feels much more comfortable and is eating. I do not feel that any further intervention or testing is indicated at this time. Patient be discharged home to follow-up with a primary care. She will be given a prescription for Zofran to use as needed. Quality:[facility] Health Related Social Needs: Health related social needs risk of homeless [facility] All Active Problems (Updated 07/21/25 @ 17:59 by George Mendoza MD) Abdominal pain (Acute) History of diverticulitis (Acute) Acute diverticulitis (Acute) Bipolar I disorder (Chronic) [facility] Alcohol use disorder (Chronic) Diverticular stricture (Chronic) Followed by [facility] Colon stricture (Chronic) Followed by [facility] Cramer's esophagus (Chronic) On 2009 EGD, not on 2012 EGD, on 2023 EGD Gastroesophageal reflux disease with esophagitis (Chronic) Diverticulosis of colon (Chronic) Chronic diarrhea (Chronic) Hypertension (Chronic) Hyperlipidemia (Chronic) Hiatal hernia (Chronic) Migraine (Chronic) 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) Glaucoma (Chronic) Allergic rhinitis (Chronic) Medical History Failure of outpatient treatment TIA (transient ischemic attack) (~05/2024) TMJ (temporomandibular joint disorder) Diverticulitis of sigmoid colon Multiple episodes, seeing [facility] Diabetes mellitus Surgical History S/P cholecystectomy S/P BSO (bilateral salpingo-oophorectomy) (07/03/15) Status post foot surgery History of total vaginal hysterectomy (TVH) (07/03/15) With cystoscopy and rectocele repair History of esophagogastroduodenoscopy History of bilateral ligation of fallopian tubes Family History Mother Stroke Lung cancer Hypertension Father Heart disease Hyperlipidemia Hypertension Brother Heart disease DOUBLE BYPASS AGE 48 (NON SMOKER) Hyperlipidemia Son Depression Daughter Depression Maternal Grandfather Lung cancer Maternal Grandmother Heart disease Myocardial infarction Paternal Grandfather No problems noted. Paternal Grandmother Diabetes Social History Smoking/Tobacco Use Status: Former Tobacco Use Quit Date: 09/05/77 Smoking risk assessment performed?: Yes Alcohol Intake: never Drug use: Never Substance use type: does not use Housing: house Do you feel safe at home: Yes Do you feel safe in your relationship?: Yes Additional Social history: lives alone / no car
--- NOTE | 2025-07-21 15:15 | RT.EKG_ITS ---
APPROVED REPORT Exam: Resting ECG Reason for Exam: abdominal pain/nausea Patient Location: E HR:69 bpm ECG Measurements Heart Rate 69 AXIS CA 166 P 64 QRSd 94 QRS 57 QT 414 T 96 QTc 442 Conclusion Sinus rhythm...normal P axis, V-rate 60- 99 Abnormal T, consider ischemia, lateral leads...T <-0.20mV, I aVL V5 V6 No STEMI
[2025-07-21] MEDS: Omnipaque 350 MG/ML 100 ML BTL IJ (15:34)
[2025-07-21] MEDS: Normal Saline - Diluent 50 ML VIAL IJ (15:35)
[2025-07-21 15:38] LABS: HCT 43.2 % (36.0-46.0); HGB 14.3 g/dL (11.2-15.7); MCH 31.1 pg (27.0-33.0); MCHC 33.1 % (32.0-36.0); MCV 94 fL (80-95); MPV 11.0 fL (8.0-11.0); RBC 4.60 10^6/uL (3.93-5.22); RDW 12.6 % (11.7-14.6); RDW-SD 43.4 fL; WBC 5.85 10^3/uL (4.4-10.8)
[2025-07-21] MEDS: Ondansetron 4 MG/2 ML VIAL IVP (15:38)
[2025-07-21] MEDS: Lactated Ringers 1,000 ML 1000 ML IV (15:39)
[2025-07-21 15:57] LABS: Lipase 31 U/L (<53)
[2025-07-21 15:59] LABS: ALT 14 U/L (10-49); AST 22 U/L (<34); Albumin 4.3 g/dL (3.4-5.0); Alkaline Phosphatase 79 U/L (46-116); Anion Gap 9.2 mmol/L (3-11); BUN 8 mg/dL (9-23); Bilirubin, Total 0.50 mg/dL (0.2-1.2); CO2 25.8 mmol/L (20.0-31.0); Calcium 9.3 mg/dL (8.3-10.6); Chloride 103 mmol/L (98-107); Glucose 88 mg/dL (74-106); Potassium 3.9 mmol/L (3.5-5.1); Sodium 138 mmol/L (136-145); Total Protein 7.7 g/dL (5.7-8.2)
[2025-07-21 16:03] LABS: Platelet Count 87 10^3/uL (130-400)
[2025-07-21 16:08] LABS: Troponin I < 3 ng/L (<35)
[2025-07-21] MEDS: LORazepam 0.5 MG TAB PO (16:47)
[2025-07-21 17:02] LABS: Glucose Negative (Negative)
[2025-07-21 17:16] LABS: Troponin I 3 ng/L (<35)
== END 2025-07-21 18:10 | disposition home or self-care (01) ==
PROVIDERS: Emergency Provider Emergency Medicine; PCP Nurse Practitioner Family
DX: R10.85 Abdominal pain of multiple sites (principal); R11.2 Nausea with vomiting, unspecified; Z87.19 Personal history of other diseases of the digestive system; Z59.811 Housing instability, housed, with risk of homelessness
CPT/HCPCS: 36415; 80053; 83690; 85027; 93005; 96361; 96374; 99285; 74177; 81003; 83605; 84484; 93010; 99284; J2405; J3490